=== PATIENT | male | born 1950 | race Caucasian/White ===

== ENCOUNTER 2019-11-13 11:54 | Emergency (ER) | payer MEDICARE, SELFPAY ==
[2019-11-13 12:09] VITALS: BP 146/81; PULSE 89; RESP 16; TEMP 36.7; O2SAT 97
--- NOTE | 2019-11-13 12:32 | ED.SKABFB ---
HPI - Skin/Abscess/Foreign Bdy General Chief complaint: Skin/Abscess/Foreign Body Stated complaint: infected lft index finger Time Seen by Provider: 11/13/19 12:32 Source: patient Mode of arrival: ambulatory Limitations: no limitations History of Present Illness HPI narrative: Eladio Morrissey is a 69 yo male with a PMH of gout, HTN, diabetes, high cholesterol, hypothyroid, depression, who comes to express care with an infected left finger after trying to do a cactus needle out of the finger; wearing plastic protective gloves; pain is 10/10, with swollen L index finger Related Data Home Medications Medication Instructions Recorded Confirmed hydrochlorothiazide 05/21/19 Allergies Allergy/AdvReac Type Severity Reaction Status Date / Time penicillin G Allergy Mild Unknown Verified 05/21/19 15:41 codeine Allergy Unknown Unknown Verified 05/21/19 15:41 peanut Allergy Unknown Unknown Verified 05/21/19 15:41 Penicillins Allergy Unknown Unknown Verified 05/21/19 15:41 Review of Systems Review of Systems: Narrative: CONSTITUTIONAL: Denies fever, chills, sweats. EYES: Denies visual changes, redness, discharge. ENT: Denies rhinorrhea, congestion, sore throat, otalgia. CARDIOVASCULAR: Denies chest pain, palpitations, edema. RESPIRATORY: Denies dyspnea, wheezing, cough GASTROINTESTINAL: Denies abdominal pain, nausea, vomiting, diarrhea. GENITOURINARY: Denies dysuria, hematuria, abnormal discharge SKIN: Denies rash or itching. Left index finger swelling and pain NEUROLOGIC: Denies numbness, or focal weakness. PSYCHIATRIC: Denies anxiety or depression. [facility] Past Medical History Medical History Carotid stenosis COPD (chronic obstructive pulmonary disease) HLD (hyperlipidemia) HTN (hypertension) PVD (peripheral vascular disease) Surgical History Surgical History H/O carotid endarterectomy History of revascularization procedure of lower extremity Family History Family History Father Hypertension Cerebrovascular accident Grandparent Family history of malignant neoplasm Diabetes mellitus Sibling Family history of diabetes mellitus in first degree relative Social History Social History Smoking status: Former smoker Smoking end date: 05/19/18 Alcohol intake: never Gender identity (if verbalized by the patient): Male Comments At time of signature, I agree with nursing past medical, surgical, social and family history. There is no relevant family history pertinent to the presenting complaint. Exam Narrative: Exam Narrative: GENERAL: This is a well-nourished, well-developed patient, in mild distress. HEAD: normocephalic, atraumatic. EYES: PERRL. Sclera clear/white. Vision is grossly intact. EARS: External ears normal, auditory canals clear and without drainage, TMs normal without perforation. Hearing grossly intact. NOSE: External nose normal without nasal discharge, nares without redness, no rhinorrhea. THROAT: Mucous membranes moist, posterior pharynx NECK: Neck supple, non-tender CARDIOVASCULAR: Regular rate and rhythm without murmurs, gallops, or rubs. RESPIRATORY: Clear to auscultation. Breath sounds equal bilaterally. No wheezes, rales, or rhonchi. GASTROINTESTINAL: Abdomen soft, non-tender, SKIN: warm, intact with no suspicious lesions or rash, good texture and turgor.L index finger: tense with abscess at distal joint- pale blue color surrounding 1 cm slit on lateral side of index finger with exquisite pain NEURO: awake, alert, and oriented to person, place and time. There were no obvious focal neurologic abnormalities. Steady gait EXTREMITIES: Normal range of motion. BACK: Nontender without deformity Course Course Emergency Course: Infected area on lateral side of index finger ope
--- NOTE | 2019-11-13 13:58 | PC.NURSE ---
Wound cleansed per [employer]. After inspection of wound she spoke with several doctors to obtain follow up for tomorrow. Patient will follow with his pmd. PMD was notified of wound by [employer].
== END 2019-11-13 13:50 | disposition home or self-care (01) ==
PROVIDERS: Emergency Provider Nurse Practitioner; PCP Family Medicine
DX: L03.012 Cellulitis of left finger (principal); L02.512 Cutaneous abscess of left hand; M10.9 Gout, unspecified; E11.9 Type 2 diabetes mellitus without complications; E03.9 Hypothyroidism, unspecified; E78.00 Pure hypercholesterolemia, unspecified; J44.9 Chronic obstructive pulmonary disease, unspecified; I10 Essential (primary) hypertension; I73.9 Peripheral vascular disease, unspecified; Z87.891 Personal history of nicotine dependence
CPT/HCPCS: 10160; 99213; G0463

== ENCOUNTER → 2022-12-11 09:05 | Outpatient (CLI) | payer MEDICARE, SELFPAY ==
--- NOTE | ~2022-12-11 | XR_ITS ---
EXAMINATION: XR abdomen/kub 1V INDICATION: Constipation, unspecified TECHNIQUE: Supine views of the abdomen were obtained on 2 radiographs. COMPARISON: None FINDINGS: The bowel gas pattern is normal. There are no dilated loops of bowel. The visualized lung b ases are clear. There is moderate osteoarthritis of the hips. Surgical clips project over the right h ip. IMPRESSION: 1. No radiographic correlate for the patient's symptoms. Reviewed, dictated and finalized at location []
== END ==
PROVIDERS: PCP Family Medicine; Visit Provider Nurse Practitioner Family
DX: K59.00 Constipation, unspecified (principal)
CPT/HCPCS: 74018

== ENCOUNTER 2023-02-02 14:38 | Emergency (ER) | payer MEDICARE, SELFPAY ==
--- NOTE | 2023-02-02 14:54 | ED.SKABFB ---
HPI - Skin/Abscess/Foreign Bdy General Chief complaint: Skin/Abscess/Foreign Body Stated complaint: insect bite Time Seen by Provider: 02/02/23 14:55 Source: patient, RN notes reviewed and old records reviewed Mode of arrival: ambulatory Limitations: no limitations History of Present Illness HPI narrative: 72-year-old male presents to the [facility] with complaints of an insect bite. States that he was bit by some type of insect on Sunday, 3 days ago. Has had increased redness, swelling to the left antecubital area. Erythema is not circumferential. Positive radial pulse. Capillary refill under 2 seconds. Patient reports a history of blood pressure issues, currently takes blood pressure medication. Did not take his blood pressure medication today, last dose was yesterday. Patient denies any headaches, blurry vision, change in vision. Denies any chest pain or shortness of breath. States that he does not take his blood pressure medication when he does not eat in the morning because it causes nausea Related Data Home Medications Medication Instructions Recorded Confirmed albuterol sulfate 90 mcg/actuation 1 inh inhalation QID 02/02/23 02/02/23 aerosol inhaler (ProAir HFA) aspirin 81 mg tablet,delayed 81 mg PO DAILY 02/02/23 02/02/23 release (Adult Low Dose Aspirin) carvedilol 12.5 mg tablet 12.5 mg PO DAILY 02/02/23 02/02/23 cetirizine 10 mg capsule 10 mg PO DAILY 02/02/23 02/02/23 diclofenac sodium 75 mg 75 mg PO BID PRN Pain 02/02/23 02/02/23 tablet,delayed release duloxetine 60 mg capsule,delayed 30 mg PO DAILY 02/02/23 02/02/23 release (Cymbalta) empagliflozin 12.5 mg-metformin 1 tablet PO BID 02/02/23 02/02/23 1,000 mg tablet (Synjardy) hydrochlorothiazide 25 mg tablet 25 mg PO DAILY 02/02/23 02/02/23 levothyroxine 75 mcg tablet 0.175 mcg PO DAILY 02/02/23 02/02/23 Allergies Allergy/AdvReac Type Severity Reaction Status Date / Time penicillin G Allergy Mild Unknown Verified 11/28/22 14:55 codeine Allergy Unknown Unknown Verified 11/28/22 14:55 Penicillins Allergy Unknown Unknown Verified 11/28/22 14:55 latex Allergy Unknown Verified 02/02/23 15:06 Review of Systems Review of Systems: All systems reviewed & are unremarkable except as noted in HPI and below Constitutional: Constitutional: Reports no additional constitutional complaints Eyes: Eyes: Reports no additional eye complaints ENT: Reports system reviewed and no additional complaints, except as documented Cardiovascular: Cardiovascular: Reports no additional cardiovascular complaints, Denies chest pain and Denies dyspnea Respiratory: Respiratory: Reports no additional respiratory complaints, Denies chest congestion, Denies cough and Denies dyspnea Gastrointestinal: Gastrointestinal: Reports no additional gastrointestinal complaints, Denies abdominal pain, Denies nausea and Denies vomiting Musculoskeletal: Musculoskeletal: Reports no additional musculoskeletal complaints Integumentary/Breasts: Skin/Breast: Reports as per HPI and Reports skin swelling Neurologic: Reports system reviewed and no additional complaints, except as documented Psychiatric: Psychiatric: Reports no additional psychiatric complaints Allergic/Immunologic: Allergic/Immunologic: Reports no additional allergic/immunologic complaints PMFSH Past Medical History Medical History BMI 28.0-28.9,adult BMI 29.0-29.9,adult BMI 30.0-30.9,adult Carotid stenosis COPD (chronic obstructive pulmonary disease) HLD (hyperlipidemia) HTN (hypertension) PVD (peripheral vascular disease) Surgical History Surgical History H/O carotid endarterectomy History of revascularization procedure of lower extremity Family History Family History Father Hypertension Cerebrovascular accident Grandparent Family histo
[2023-02-02 14:55] VITALS: BP 202/89; PULSE 82; RESP 18; TEMP 36.1; O2SAT 100
== END 2023-02-02 15:15 | disposition home or self-care (01) ==
PROVIDERS: Emergency Provider Nurse Practitioner; PCP Family Medicine
DX: S50.862A Insect bite (nonvenomous) of left forearm, initial encounter (principal); L03.114 Cellulitis of left upper limb; W57.XXXA Bitten or stung by nonvenomous insect and other nonvenomous arthropods, initial encounter; I10 Essential (primary) hypertension; F17.210 Nicotine dependence, cigarettes, uncomplicated; F12.90 Cannabis use, unspecified, uncomplicated; J44.9 Chronic obstructive pulmonary disease, unspecified; E78.5 Hyperlipidemia, unspecified; I73.9 Peripheral vascular disease, unspecified; I65.29 Occlusion and stenosis of unspecified carotid artery; Z79.82 Long term (current) use of aspirin
CPT/HCPCS: 99213; G0463

== ENCOUNTER 2024-03-13 10:27 | Outpatient (CLI) | payer MEDICARE, SELFPAY ==
--- NOTE | ~2024-03-13 | XR_ITS ---
XR chest 2V 03/13/2024 10:44 Indication: Chronic obstructive pulmonary disease. Procedure: 2 view chest Comparison: 11/26/2011 Findings: Heart size normal. There are chronic interstitial changes bilaterally, most likely intersti tial lung disease versus chronic interstitial edema no pleural effusion, pneumothorax. No acute osseo us abnormality. The lungs are hyperinflated which is consistent with, but not diagnostic of chronic o bstructive pulmonary disease. Impression: 1: Mild chronic interstitial lung disease. Reviewed, dictated and finalized at location B. Impression: 1: Mild chronic interstitial lung disease.
== END 2024-03-13 10:28 | disposition home or self-care (01) ==
LOC: ANHIMG 10:29
PROVIDERS: PCP Family Medicine; Visit Provider Family Medicine
DX: J44.9 Chronic obstructive pulmonary disease, unspecified (principal); J84.9 Interstitial pulmonary disease, unspecified
CPT/HCPCS: 71046

== ENCOUNTER 2024-05-11 15:37 | Inpatient (IN) | payer MEDICARE, SELFPAY ==
[2024-05-11] VITALS (21 sets, daily range): BP systolic 74–114; BP diastolic 40–57; PULSE 71–79; RESP 18–32; TEMP 36.6–36.8; O2SAT 87–97; BMI 27.2
--- NOTE | ~2024-05-11 | CT_ITS ---
EXAMINATION: CT chest abdomen pelvis wo con DATE: 05/11/2024 18:27 INDICATION: Sepsis TECHNIQUE: Computed tomography (CT) of the chest was performed without intravenous contrast. Automate d exposure control and iterative reconstruction technique were employed. Exam dose: 692.90 mGy-cm to donn exam DLP. COMPARISON: 05/11/2024 portable AP chest FINDINGS: There is bilateral thyromegaly. There is extensive consolidating infiltrate in the right upper and middle lobes and left lower lobe with air bronchograms, consistent with bilateral pneumonia. There is mild likely reactive mediastinal lymphadenopathy. 7 mm right lower lobe calcified granuloma (image 74). 4.7 mm right lower lobe peripheral pulmonary nodule (image 89). 4.8 mm right lower lobe nodule (image 92) Left upper lobe calcified pulmonary granuloma. Mild mediastinal lymph node prominence, likely reactive to the bilateral extensive pulmonary consolid ation. Calcified left hilar lymph nodes. The liver, gallbladder, bile ducts, spleen, pancreas, pancreatic duct are unremarkable. 29 x 31 mm left adrenal low attenuation mass; differential diagnosis includes left adrenal adenoma, m etastasis. No significant renal mass lesion is noted. Several left renal cysts, measuring up to approximately 12 mm. No ureteral calculus or hydroureteronephrosis. Moderately prominent prostate enlargement. Mild diffuse thickening of urinary bladder wall. Normal appendix. Several sigmoid colon diverticula are noted; no CT evidence of diverticulitis. No bowel obstruction o r intraperitoneal free air. There is extensive calcification of the celiac, superior mesenteric and particularly renal arteries i n addition to inferior mesenteric artery calcification. 2 fusiform infrarenal aneurysms of the abdominal aorta, measuring up to 4 cm infrarenal abdominal aor tic aneurysm. There is ectasia of the left common iliac artery. There is extensive calcification of t he iliac and femoral arteries. There is a catheter in the right common femoral vein, terminating in the right external iliac vein. No intraperitoneal or retroperitoneal or pelvic mass lesion or adenopathy or ascites is noted otherwi se. Mild bilateral fat-containing inguinal hernias. Small fat-containing umbilical hernia. Diffuse idiopathic skeletal hyperostosis of the thoracic spine. Hemangioma of L1 vertebral body. IMPRESSION: Extensive right upper lobe, middle lobe and left lower lobe consolidating pneumonia, wit h mild mediastinal reactive lymph node enlargement Occasional pulmonary nodules, likely related to pulmonary granulomatous disease 29 x 31 mm left adrenal low-attenuation mass, likely due to adrenal adenoma, less likely metastasis Normal appendix Minimal sigmoid diverticulosis; no evidence of diverticulitis Moderate prostatomegaly 2. Fusiform infrarenal abdominal aortic aneurysms, measuring up to 4 cm Central venous right common femoral catheter in right common femoral vein Reviewed, dictated and finalized at [facility] Reviewed, dictated and finalized at [facility]. R MECHANIC IMPRESSION: Extensive right upper lobe, middle lobe and left lower lobe consol idating pneumonia, with mild mediastinal reactive lymph node enlargement Occasional pulmonary nodules, likely related to pulmonary granulomatous disease 29 x 31 mm left adrenal low-attenuation mass, likely due to adrenal adenoma, le ss likely metastasis Normal appendix Minimal sigmoid diverticulosis; no evidence of diverticulitis Moderate prostatomegaly 2. Fusiform infrarenal abdominal aortic aneurysms, measuring up to 4 cm Central venous right common femoral catheter in right common femoral vein
--- NOTE | ~2024-05-11 | XR_ITS ---
XR chest 1V portable DATE: 05/11/2024 16:42 INDICATION: Shortness of breath TECHNIQUE: Portable upright AP chest on 05/11/2024 at 1641 hours COMPARISON: 03/13/2024 PA and lateral chest FINDINGS: There is prominent consolidating infiltrate in the right upper lobe and patchy consolidatin g infiltrate in the left lower lobe. Heart size is border line. Is aortic arch calcification. Heart size is likely within normal range considering medication associated with AP projection. No ple ural effusions or pneumothorax. Osteopenia. IMPRESSION: Right upper lobe and left lower lobe consolidating infiltrates, new since 03/13 2024 sugge sting bilateral pneumonia Reviewed, dictated and finalized at [facility] MERCHANT IMPRESSION: Right upper lobe and left lower lobe consolidating infiltrates, new since 03/13 2024 suggesting bilateral pneumonia
--- NOTE | ~2024-05-11 | US_ITS ---
EXAMINATION: US renal BI DATE: 05/12/2024 15:13 INDICATION: acute kidney injury TECHNIQUE: Multiple grayscale and Doppler ultrasound images of the kidneys were obtained. COMPARISON: CT cap 05/11/2024 FINDINGS: The right kidney measures 12.9 x 5.1 x 4.9 cm. The left kidney measures 12.2 x 6.0 x 5.7 cm. The kidn eys demonstrate normal parenchymal echogenicity. There is no hydronephrosis. The bladder is decompres sed by Garcia catheter. IMPRESSION: Unremarkable renal sonogram findings. Reviewed, dictated and finalized at location K. ISITION COST ESTIMATOR
--- NOTE | ~2024-05-11 | XR_ITS ---
EXAMINATION: XR chest 1V portable DATE: 05/14/2024 05:23 INDICATION: Pneumonia. TECHNIQUE: A single frontal view of the chest was obtained. COMPARISON: Chest single view 05/13/2024 FINDINGS: There are airspace opacities in all right lung zones with an upper lobe predominance. There are airspace opacities in left mid and lower lung zones. A calcified left lung nodule and calcified left hilar lymph nodes are consistent with old granulomatous disease. There is a small left pleural e ffusion. No pneumothorax. The heart size is normal. IMPRESSION: 1. Diffuse lung disease with slight improvement on the right and worsening on the left, consistent wi th pneumonia. 2. Small left pleural effusion. Reviewed, dictated and finalized at location A. RY DRYER OPERATOR IMPRESSION: 1. Diffuse lung disease with slight improvement on the right and worsening on t he left, consistent with pneumonia. 2. Small left pleural effusion.
--- NOTE | ~2024-05-11 | XR_ITS ---
EXAMINATION: XR chest 1V portable DATE: 05/15/2024 05:33 INDICATION: Bilateral pneumonia TECHNIQUE: frontal view of the chest was obtained. COMPARISON: Chest radiograph dated 05/14/2024 FINDINGS: Again seen are airspace opacity scattered throughout the right lung and left mid and lower lung zone, greatest but with interval improvement in the right and left lower lung zones. Additional airspace o pacities without significant change in the left mid and lower lung zones. Calcified nodule left midlu ng zone consistent with old granulomatous disease. No pneumothorax or right-sided pleural effusion. L ikely small left pleural effusion. The cardiomediastinal silhouette is normal. IMPRESSION: 1. There is been some interval improvement in bilateral airspace opacities greatest in the right mid and left lower lung zones consistent with pneumonia 2. Small left pleural effusion. Reviewed, dictated and finalized at location A. ANIZER RUBBER PLATE IMPRESSION: 1. There is been some interval improvement in bilateral airspace opacities grea test in the right mid and left lower lung zones consistent with pneumonia 2. Small left pleural effusion.
--- NOTE | ~2024-05-11 | XR_ITS ---
XR chest 1V portable DATE: 05/17/2024 13:30 INDICATION: Bilateral pneumonia TECHNIQUE: Portable upright AP view on 05/17/2024 at 1317 hours COMPARISON: 05/15/2024 portable AP chest at 0512 hours FINDINGS: There is right upper lobe atelectasis and consolidation. There is patchy left lower lobe infiltrate and consolidation. Heart size is likely within normal range. Is aortic arch calcification. Pulmonary vascularity appears within normal range. No significant pleural effusion or pneumothorax is identified. Diffuse osteopenia. IMPRESSION: Interval right upper lobe atelectasis and consolidation Persistent relatively stable left lower lobe infiltrate and patchy consolidation Reviewed, dictated and finalized at location A. ALT ROLLER PERSON IMPRESSION: Interval right upper lobe atelectasis and consolidation Persistent relatively stable left lower lobe infiltrate and patchy consolidatio n
--- NOTE | ~2024-05-11 | CT_ITS ---
CT brain wo con Ordering provider: Martín Phillips MD History: 74 years Male with . left sided weakness . Comparison: November 26, 2011 Technique: CT of the head without contrast. Radiation reduction technique utilized. The dose-length p roduct was 605.33 mGy-cm. FINDINGS: BRAIN PARENCHYMA AND CSF SPACES: hypodensity in the right frontal area most likely old infarct. Hypo density in the right paraventricular area also seen which is suggestive of an old infarct in the caud ate body. Small lacunar infarct is seen in the left caudate body. Lacunar infarct in the right basal ganglia is also noted Mild leukoaraiosis and diffuse cortical atrophy. Mild atheromatous disease. No midline shift, mass effect or hemorrhage. The brain parenchyma and CSF spaces are otherwise normal. VISUALIZED PARANASAL SINUSES: Right maxillary sinus disease. MASTOIDS: Well aerated. BONES: The bones appear intact. SOFT TISSUES: Visualized nasopharynx is normal. Superficial soft tissues are normal. IMPRESSION: No definite acute intracranial findings. 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 If still suspicious MRI is advised. Reviewed, dictated and finalized at location A. S DEPARTMENT MANAGER IMPRESSION: No definite acute intracranial findings. Old infarcts in the right frontal lobe, right paraventricular area and right ba tati ganglia. If still suspicious MRI is advised.
--- NOTE | ~2024-05-11 | XR_ITS ---
EXAMINATION: XR chest 1V portable DATE: 05/18/2024 09:02 INDICATION: Collapse of right lung upper lobe. TECHNIQUE: A single frontal view of the chest was obtained. COMPARISON: Chest view 05/17/2024, chest CT 05/11/2024 FINDINGS: There are airspace opacities in right upper lobe with volume loss. There are airspace opaci ties in left lower lobe. A calcified left lung nodule and calcified left hilar lymph nodes are consis tent with old granulomatous disease. No pleural effusion or pneumothorax. The heart size is normal. IMPRESSION: 1. Airspace opacities in right upper lobe and left lower lobe with worsening on the left, consistent with pneumonia. Reviewed, dictated and finalized at location A. ERTING TECHNICIAN
--- NOTE | ~2024-05-11 | XR_ITS ---
EXAMINATION: XR barium swallow modified DATE: 05/20/2024 14:20 INDICATION: Pneumonia. TECHNIQUE: The patient was given barium-containing material of multiple consistencies to swallow by t he speech pathologist while I performed fluoroscopy. Fluoroscopy exposure time was 0.8 minutes. The n umber of fluoroscopy images saved to the PACS was 1. Dose-area product was 0.656 Gy-cm^2. FINDINGS: The oral stage, pharyngeal stage, and cervical/esophageal stage of the swallow are normal. IMPRESSION: 1. Normal modified barium swallow. 2. Please refer to the speech therapy report for recommendations. Reviewed, dictated and finalized at location A. MER OPERATOR THREE KNIFE
--- NOTE | ~2024-05-11 | XR_ITS ---
EXAMINATION: XR chest 1V portable DATE: 05/22/2024 11:43 INDICATION: Leukocytosis. TECHNIQUE: A single frontal view of the chest was obtained on 2 radiographs. COMPARISON: Chest single view 05/18/2024 FINDINGS: There is a small left pleural effusion. There is been improved aeration of right upper lobe . There are airspace opacities in right mid and upper lung zones and left mid and lower lung zones. A calcified left lung nodule and calcified left hilar and mediastinal lymph nodes are consistent with old granulomatous disease. No pneumothorax. The heart size is normal. IMPRESSION: 1. Improved airspace opacities in right mid and upper lung zones and worsened airspace opacities in l eft mid and lower lung zones, consistent with pneumonia. 2. Small left pleural effusion. Reviewed, dictated and finalized at location A. GATION EXAMINER IMPRESSION: 1. Improved airspace opacities in right mid and upper lung zones and worsened a irspace opacities in left mid and lower lung zones, consistent with pneumonia. 2. Small left pleural effusion.
--- NOTE | ~2024-05-11 | XR_ITS ---
EXAMINATION: XR chest 1V portable DATE: 05/13/2024 05:28 INDICATION: Respiratory failure. TECHNIQUE: A single frontal view of the chest was obtained. COMPARISON: Chest single view 05/12/2024 FINDINGS: There are airspace opacities in right upper lobe and left lower lobe. No pleural effusion o r pneumothorax. The heart size is normal. IMPRESSION: 1. Airspace opacities in right upper lobe and left lower lobe with interval improvement, consistent w ith pneumonia. Reviewed, dictated and finalized at location A. OSOFT APPLICATION DEVELOPER IMPRESSION: 1. Airspace opacities in right upper lobe and left lower lobe with interval imp rovement, consistent with pneumonia.
--- NOTE | ~2024-05-11 | CT_ITS ---
EXAMINATION:CT diagnostic chest wo con DATE: 05/23/2024 08:56 INDICATION: Leukocytosis. TECHNIQUE: Computed tomography (CT) of the chest was performed without intravenous contrast. Automate d exposure control and iterative reconstruction technique were employed. The dose-length product (DLP ) was 230.61 mGy-cm. COMPARISON: Chest CT 05/11/2024 FINDINGS: There is mild emphysema. A calcified left lung nodule and calcified left hilar lymph nodes are consistent with old granulomatous disease. There are airspace opacities in right upper lobe and r ight middle lobe with improvement from 05/11/2024. There are 3 nodules in right lower lobe measuring up to 6 mm. There is mild atelectasis bilaterally. There are airspace opacities with volume loss in l eft lower lobe. There are small pleural effusions. The thyroid is enlarged. The heart size is normal. There are coronary artery calcifications. No pericardial effusion. Partially visualized is a fusifor m infrarenal aortic aneurysm measuring 4.0 cm. There is mild thoracic spondylosis. IMPRESSION: 1. Improved airspace opacities in right upper lobe and right middle lobe, consistent with pneumonia a nd atelectasis. 2. Left lower lobe airspace opacities with volume loss, consistent with atelectasis versus pneumonia. 3. Small pleural effusions. 4. Mild emphysema. 5. Pulmonary nodules measuring up to 6 mm, probably benign. Consider noncontrast low-dose chest CT in 6-12 months. 6. Partially visualized fusiform abdominal aortic aneurysm measuring 4.0 cm. Reviewed, dictated and finalized at location A. T CLERK IMPRESSION: 1. Improved airspace opacities in right upper lobe and right middle lobe, consi stent with pneumonia and atelectasis. 2. Left lower lobe airspace opacities with volume loss, consistent with atelect asis versus pneumonia. 3. Small pleural effusions. 4. Mild emphysema. 5. Pulmonary nodules measuring up to 6 mm, probably benign. Consider noncontras t low-dose chest CT in 6-12 months. 6. Partially visualized fusiform abdominal aortic aneurysm measuring 4.0 cm.
--- NOTE | ~2024-05-11 | US_ITS ---
EXAMINATION: US carotid duplex BI DATE: 05/12/2024 15:13 INDICATION: Syncope TECHNIQUE: Grayscale, color Doppler, and pulsed Doppler images of the cervical carotid arteries were obtained. The degree of vessel stenosis is placed in one of the following categories: normal, <50%, 5 0-69%, >=70% but less than near-occlusion, near-occlusion, or total occlusion. Note that percent sten osis relative to normal distal artery lumen diameter is indirectly measured from velocity measurement s as described by Julio, et al. Radiology 2003; [id number]. COMPARISON: None. FINDINGS: RIGHT: The right common carotid artery (CCA) peak systolic velocity (PSV) is 35 cm/s. There is prominent ath erosclerotic calcification along the right common carotid artery. The right internal carotid artery ( ICA) PSV is 53 cm/s. The right ICA end-diastolic velocity (EDV) is 9 cm/s. The right ICA/CCA PSV rati o is 2.0. Grayscale and color Doppler images yield an estimate of <50% diameter reduction from plaque in the ICA. The external carotid artery (ECA) PSV is 42 cm/s. There is antegrade flow in the right v ertebral artery. LEFT: The left CCA PSV is 161 cm/s. There is prominent atherosclerotic calcification along the left common carotid artery. The left ICA PSV is 138 cm/s. The left ICA EDV is 0 cm/s. The left ICA/CCA PSV ratio is 0.9. Grayscale and color Doppler images yield an estimate of <50% diameter reduction from plaque i n the ICA. The ECA PSV is cm/s. There is antegrade flow in the left vertebral artery. IMPRESSION: 1. <50% stenosis in the right internal carotid artery. 2. 50-69% stenosis in the left internal carotid artery. Reviewed, dictated and finalized at location A. ARY SERVER
--- NOTE | ~2024-05-11 | XR_ITS ---
EXAMINATION: XR chest 1V portable DATE: 05/12/2024 06:24 INDICATION: Respiratory failure. TECHNIQUE: A single frontal view of the chest was obtained. COMPARISON: Chest view 05/11/2024, chest CT 05/11/2024 FINDINGS: There are airspace opacities in right upper lobe, right middle lobe, and left lower lobe. A calcified left lung nodule and calcified left hilar lymph nodes are consistent with old granulomatou s disease. There is a small left pleural effusion. No pneumothorax. The heart size is normal. IMPRESSION: 1. Worsened multifocal lung disease, consistent with pneumonia. 2. Worsened small left pleural effusion. Reviewed, dictated and finalized at location A. OMER CONTACT 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
--- NOTE | 2024-05-11 15:40 | ECG_ITS ---
Test Date: 2024-05-11 15:53:21 Measurements Intervals [place] Rate: 78 P: 55 [place]: 168 QRS: 24 QRSD: 105 T: 49 QT: 386 QTc: 440 Interpretive Statements SINUS RHYTHM WITH MARKED SINUS ARRHYTHMIA NONSPECIFIC T-WAVE ABNORMALITY- INFERIOR LEADS BASELINE ARTIFACT- I, II, III, AVR, AVL, AVF, V2, V4-V6 BORDERLINE ECG No previous ECG available for comparison Electronically Signed On 05-11-2024 18:47:15 VACCINATOR by Hunter Shah D.O.
[2024-05-11] MEDS: methylPREDNISolone SOD SUCC 125 MG VIAL IV PUSH (16:01)
[2024-05-11 16:03] LABS: Alveolar/Arterial O2 Gradient 215.7 mmHg; Base Excess ABG -5.1 mEq/l (+/-2.0); Carboxyhemoglobin 0.8 % THb (0-2.0); Fractional Inspired Oxygen 44 %; HCO3 ABG 18.2 mEq/l (22.0-26.0); Methemoglobin ABG 0.3 %THb (0-1.5); Oxygen Content ABG 16.2 %vol (16.0-22.0); Oxygen Saturation ABG 93.3 % (95.0-100.0); Oxyhemoglobin 91.1 % THb (90.0-100.0); PCO2 ABG 29.2 mmHg (35.0-45.0); PO2 ABG 64.7 mmHg (80.0-100.0); PO2 FiO2 Ratio Arterial Blood 1.47 %; Reduced Hemoglobin 7.8 %THb (0-5.0); Total Hemoglobin 12.6 g/dL (12.0-18.0); pH ABG 7.413 (7.350-7.450)
[2024-05-11 16:04] LABS: Device NASAL CANNULA; Modified Allen's Test Pass; Site Drawn LEFT RADIAL
[2024-05-11 16:12] LABS: Hematocrit 35.5 % (42.0-52.0); Hemoglobin 12.2 g/dL (14.0-18.0); Mean Corpuscular HGB Conc 34.4 g/dl (32-36); Mean Corpuscular Hemoglobin 29.5 pg (26-34); Mean Corpuscular Volume 85.7 fl (80-100); Platelet Count Result 231 k/mm3 (150-375); Red Blood Count 4.14 M/mm3 (4.6-6.20); Red Cell Distribution Width 13.7 % (11.5-14.5); White Blood Count 21.8 K/mm3 (4.5-10.0)
[2024-05-11] MEDS: SODIUM CHLORIDE 0.9% IV 500 ML 999 ML IV CONT (16:15)
[2024-05-11 16:23] LABS: INR 1.1; Prothrombin Time 14.6 Seconds (11.1-14.7)
[2024-05-11 16:25] LABS: Band Neutrophils Percent 17 % (0-6); Lactic Acid Reflex 5.5 mmol/L (0.7-2.0); Lymphocytes Absolute Manual 0.65 K/mm3 (1.1-4.5); Lymphocytes Percent Manual 3 % (18-44); Metamyelocytes Percent 2 %; Monocytes Absolute Manual 1.09 K/mm3 (0.1-0.90); Monocytes Percent Manual 5 % (3-9); Neutrophils Absolute Manual 19.62 K/mm3 (1.3-6.7); Neutrophils Percent Manual 73 % (46-73); Total Cells Counted 100
[2024-05-11 16:26] LABS: Albumin Level 3.6 g/dL (3.5-5.1); Alkaline Phosphatase 90 U/L (38-126); Anion Gap 14 mmol/L (4-12); Aspartate Amino Transferase 46 U/L (17-59); Bilirubin,Total 1.1 mg/dL (0.2-1.3); Blood Urea Nitrogen 56 mg/dL (9-20); Calcium 8.6 mg/dL (8.4-10.2); Carbon Dioxide 22 mmol/L (22-30); Chloride 95 mmol/L (98-107); Estimated CRCL calculation 13 ml/min; Estimated Glomerular Filt Rate 13; Glucose 163 mg/dL (65-110); Ovalocytes 1+; Platelet Estimate Adequate (Adequate); Potassium 3.7 mmol/L (3.4-5.0); Schistocytes None Seen; Sodium 131 mmol/L (137-145)
[2024-05-11 16:30] LABS: Alanine Aminotransferase 21 U/L (6-50)
[2024-05-11 16:33] LABS: D Dimer 3.93 ug/mL (<0.48)
[2024-05-11 16:36] LABS: NT Pro B Type Natriuretic Pept 14000 pg/mL (19.9-100); Troponin I 0.102 ng/mL (0.000-0.034)
--- NOTE | 2024-05-11 18:15 | P.HP_ITS ---
H&P: HPI History of Present Illness Date/Time: 05/11/24 18:15 Chief Complaint: Weakness and syncope. Narrative: This is a pleasant 74-year-old male smoker with chronic obstructive pulmonary disease, hypertension, hyperlipidemia, type 2 diabetes mellitus, and vascular disease who presented to the emergency department via private vehicle accompanied by his with weakness and syncope. The patient provides the following history. He has not been feeling well for over a week with chest congestion, cough productive of clear phlegm, and sinus congestion. Over the last several days he has been feeling increasingly worse with new symptoms including headache, sinus congestion, nausea, vomiting, and diarrhea. His appetite has been poor with a significant decrease in oral intake. Today he was feeling especially weak and reports he lightheadedness and dizziness upon standing and bending over. In fact he reports having 4 syncopal episodes today, 1 of which when he was going into his 's room to check on her as she has had similar symptoms. He felt extremely lightheaded, dizzy, and knew that he was going to pass out and crumpled down to the floor. He cannot tell me about the other reported 3 syncopal episodes as he does not seem to remember them. He denies injury and does not think he had any head trauma. He also denies fever, pleuritic pain, exertional chest pain, palpitations, hematemesis, melena, hematochezia, lower extremity edema, calf pain, and dysuria. In the ED: Vital signs on arrival include a temperature of 98?, blood pressure 74/56, pulse 79, respiratory rate 29, SpO2 87%. Labs were significant for WBC count 21.8 with 17% bands, hemoglobin 12.2, platelet 231, D-dimer 3.93, sodium 131, chloride 95, carbon dioxide 22, anion gap 14, BUN 56, creatinine 4.40, lactic acid 5.5, glucose 163, proBNP 16341, troponin 0.102. He tested negative for influenza, RSV, and COVID. CT of the chest, abdomen, and pelvis showed extensive right upper lobe, middle lobe, and left lower lobe consolidating pneumonia. He received 1500 mL normal saline bolus with caution to avoid over- hydration given elevated proBNP and renal failure. Blood pressures did not improve significantly and a femoral central line was placed and he is currently norepinephrine. He was given methylprednisolone 125 mg, cefepime 1 g, doxycycline 100 mg, and vancomycin 1250 mg. He is being admitted to the ICU in this setting for further treatment. Review of Systems Review of Systems: 12 systems were reviewed and are negativ e except for as per HPI. [facility] Past Medical History Medical History (Updated 05/11/24 @ 22:02 by Babs Arriaza PA-C) Arthritis Carotid stenosis Chronic obstructive pulmonary disease Gout Hyperlipidemia Hypertension Hypothyroidism Obstructive sleep apnea Peripheral vascular disease Tobacco dependence Type 2 diabetes mellitus Surgical History Surgical History (Updated 05/11/24 @ 21:34 by Babs Arriaza PA-C) History of cardiac catheterization History of carotid endarterectomy History of cholecystectomy History of revascularization procedure of lower extremity Family History Family History Father Hypertension Cerebrovascular accident Grandparent Family history of malignant neoplasm Diabetes mellitus Sibling Family history of diabetes mellitus in first degree relative Diabetes mellitus Mother Hyperlipidemia Social History Social History (Updated 05/11/24 @ 21:35 by Babs Arriaza PA-C) Social History: Surrogate medical decision maker: Brooks Morrissey, son ([phone]) and Kira Morrissey, spouse ([phone]). Code status: Full code. Smoking packs per day: 1 Smoking cigarettes per day: 20.0 Years smoked: 30 Smoking pack-years: 30.00 Smoking status: Current every day smoker Tobacco type: cigarettes Second hand tobacco smoke exposure: Yes Alcohol intake: never Substance use: current Substance use type: marijuana Other substance usage details: smoking and edibles Do You Feel Safe in your Home?: Yes Lack of Transportation: No Lack of Food: Never True Current Housing: I Have Housing Concerned About Future Housing: No Difficulty Paying Gas/Electric Bills: No Difficulty Paying for Meds: No Currently Unemployed: No Education: High School Diploma/GED Difficulty w/ Childcare or Family Care: No Living arrangements: with family Occupation/Education: retired Spiritual care concerns: No Meds Home Medications and Allergies Home Medications Medication Instructions Recorded Confirmed Type albuterol sulfate 2.5 mg/3 mL 2.5 mg (3 mL) inhalation Q4-6H PRN 11/11/22 05/11/24 Rx (0.083 %) solution for nebulization shortness of breath or wheezing #75 mL albuterol sulfate 90 mcg/actuation 1 inh inhalation QID PRN 02/02/23 05/11/24 History aerosol inhaler (ProAir HFA) SOB/Wheezing aspirin 81 mg tablet,delayed 81 mg PO DAILY 02/02/23 05/11/24 History release (Adult Low Dose Aspirin) duloxetine 60 mg capsule,delayed 60 mg PO DAILY #90 caps 01/03/24 05/11/24 Rx release empagliflozin 12.5 mg-metformin 1 tablet PO BID #180 tabs 01/03/24 05/11/24 Rx 1,000 mg tablet (Synjardy) hydrochlorothiazide 25 mg tablet 25 mg PO DAILY #90 tabs 01/03/24 05/11/24 Rx levothyroxine 75 mcg tablet 75 mcg PO DAILY #90 tabs 01/03/24 05/11/24 Rx rosuvastatin 40 mg tablet 40 mg PO DAILY #90 tabs 01/03/24 05/11/24 Rx budesonide 160 mcg-glycopyr 9 2 inh inhalation BID #10.7 grams 05/05/24 05/11/24 Rx mcg-formot 4.8 mcg/actuation HFA inhaler (Breztri Aerosphere) sildenafil 100 mg tablet 100 mg PO DAILY PRN sexual 05/05/24 05/11/24 Rx activity #30 tabs amlodipine 10 mg tablet 10 mg PO DAILY 05/11/24 05/11/24 History carvedilol 12.5 mg tablet 12.5 mg PO DAILY 05/11/24 05/11/24 History clopidogrel 75 mg tablet 75 mg PO DAILY 05/11/24 05/11/24 History Allergies Allergy/AdvReac Type Severity Reaction Status Date / Time penicillin G Allergy Mild Unknown Verified 05/11/24 15:38 codeine Allergy Unknown Unknown Verified 05/11/24 15:38 Penicillins Allergy Unknown Unknown Verified 05/11/24 15:38 latex Allergy Unknown Verified 05/11/24 15:38 Vital Signs Vital Signs - 24 hr 05/11/24 15:46 05/11/24 16:04 05/11/24 16:23 Temperature 98.0 F Pulse Rate 79 76 74 Respiratory Rate 29 H 32 H 26 H Blood Pressure 74/56 L 93/45 L 89/52 L Pulse Oximetry 87 L 95 96 Oxygen Delivery Nasal Cannula Nasal Cannula Oxygen Flow Rate 6.0 6 Fraction of Inspired Oxygen 05/11/24 16:42 05/11/24 16:48 05/11/24 17:05 Temperature Pulse Rate 74 79 74 Respiratory Rate 29 H 28 H 29 H Blood Pressure 92/47 L 87/55 L 89/47 L Pulse Oximetry 93 91 94 Oxygen Delivery Oxygen Flow Rate Fraction of Inspired Oxygen 05/11/24 17:24 05/11/24 18:01 05/11/24 18:05 Temperature 97.9 F Pulse Rate 75 76 Respiratory Rate 28 H 18 Blood Pressure 92/45 L 85/48 L 82/51 L Pulse Oximetry 93 94 Oxygen Delivery Oxygen Flow Rate Fraction of Inspired Oxygen 05/11/24 17:15 05/11/24 17:20 Temperature Pulse Rate Respiratory Rate Blood Pressure Pulse Oximetry 97 94 Oxygen Delivery Non-Rebreather Mask High Flow Therapy with Na Oxygen Flow Rate 15 35 Fraction of Inspired Oxygen 75 Exam Narrative: General: Acutely ill-appearing male in the semi-Arriaga position in bed. Weight: 78.9 kg. BMI: 27.2. HEENT: PERRL, EOMI. Sclera anicteric. Tacky mucous membranes. Neck: Supple. No JVD. Respiratory: Mildly tachypneic with conversational dyspnea, speaking in 3 to 4 word sentences. Lung sounds are coarse throughout with bronchial breath sounds in the right mid and upper lung pena. Occasional expiratory wheezing. Cardiovascular: Regular rate and rhythm with occasional ectopy. Gastrointestinal: Abdomen is soft, nontender, and nondistended with positive bowel sounds. Skin: Warm and dry. Generalized pallor. Capillary refill proximally 3 to 4 seconds. Hands are warm. Feet are a bit cool. Extremities: No cyanosis, clubbing, or edema. Radial pulses palpable. Posterior tibialis pulses palpable. Pedal pulses diminished. Neurological: Alert and oriented. Cranial nerves 2-12 are grossly intact. Speech is clear. No facial asymmetry. No gross focal deficits to casual conversation. Psychiatric: Pleasant and cooperative with appropriate mood and affect. H&P: Results Labs Labs: Short CBC 05/11/24 Range/Units 15:55 WBC 21.8 H (4.5-10.0) K/mm3 Hgb 12.2 L (14.0-18.0) g/dL Hct 35.5 L (42.0-52.0) % Plt Count 231 (150-375) k/mm3 BMP 05/11/24 05/11/24 05/11/24 15:55 15:55 15:55 Sodium Cancelled 131 L Potassium Cancelled 3.7 Chloride Cancelled Carbon Dioxide BUN Creatinine Glucose Calcium 05/11/24 05/11/24 05/11/24 15:55 15:55 15:55 Sodium Potassium Chloride 95 L Carbon Dioxide Cancelled 22 BUN Cancelled 56 H D Creatinine Cancelled Glucose Calcium 05/11/24 05/11/24 05/11/24 15:55 15:55 15:55 Sodium Potassium Chloride Carbon Dioxide BUN Creatinine 4.40 H Glucose Cancelled 163 H Calcium Cancelled 8.6 Cardiac Enzymes 05/11/24 Range/Units 15:55 Troponin I 0.102 H* (0.000-0.034) ng/mL Liver Function 05/11/24 05/11/24 05/11/24 Range/Units 15:55 15:55 15:55 Total Bilirubin Cancelled 1.1 AST Cancelled 46 ALT Cancelled Alkaline Phosphatase Albumin 05/11/24 05/11/24 05/11/24 Range/Units 15:55 15:55 15:55 Total Bilirubin AST ALT 21 Alkaline Phosphatase Cancelled 90 Albumin Cancelled 3.6 Imaging Chest X-Ray 05/11/24 16:49 IMPRESSION: Right upper lobe and left lower lobe consolidating infiltrates, new since 03/13 2024 suggesting bilateral pneumonia. ABG ABG results: 05/11/24 15:55 Puncture Site Left radial ABG pH 7.413 ABG pCO2 29.2 L ABG pO2 64.7 L ABG PO2/FiO2 Ratio 1.47 ABG HCO3 18.2 L ABG O2 Saturation 93.3 L ABG O2 Content 16.2 ABG Base Excess -5.1 A-a Gradient 215.7 Oxyhemoglobin 91.1 Carboxyhemoglobin 0.8 Reduced Hemoglobin 7.8 H Total Hemoglobin 12.6 O2 Delivery Device Nasal cannula O2 Liters/Min 6.0 FiO2 44 Assessment and Plan Assessment and plan (1) Septic shock: Code(s): A41.9 - Sepsis, unspecified organism; R65.21 - Severe sepsis with septic shock Status: Acute Assessment and Plan: Patient presents with refractory hypotension, leukocytosis with bandemia, acute kidney injury, and lactic acidosis. SOFA at least 9. Source of infection is multifocal community-acquired pneumonia. * Interventions thus far: * 1500 mL bolus given in the ED on arrival. * Central line inserted 05/11/2024. * Medications: * Norepinephrine to maintain MAP > 70 and SBP > 100 for adequate end-organ perfusion. * Broad-spectrum antibiotics including cefepime, doxycycline, vancomycin. * Consider stress dose steroids. * Labs/micro: * Blood and sputum cultures pending. (2) Multifocal pneumonia: Code(s): J18.9 - Pneumonia, unspecified organism Status: Acute Assessment and Plan: Chest CT on 05/11/2024 shows extensive right upper lobe, middle lobe, and left lower lobe consolidating pneumonia. * Medications: * Cefepime, doxycycline, and vancomycin initiated on 05/11/2024. * Received methylprednisolone 125 mg IV x1 in the ED, consider steroids. * Scheduled bronchodilators q. 6 hours. * Labs/micro: * Influenza, RSV, and COVID were negative. * MRSA nasal screen is pending. * Sputum culture ordered. * Legionella and pneumococcal antigens pending. (3) Acute kidney injury: Code(s): N17.9 - Acute kidney failure, unspecified Status: Acute Assessment and Plan: Likely due to a combination of factors including probable ATN from sepsis, hypovolemia from dehydration, and hypoperfusion from hypotension. He denies NSAID use. No concerns for urinary retention. * Interventions thus far: * Received 1500 mL normal saline bolus in the ED on arrival. * Garcia catheter inserted for strict I/O. * Medications: * Continue normal saline at 100 mL/hour. * Renally dose all medications. * Avoid nephrotoxic agents. * Pending labs/imaging: * Renal ultrasound ordered for a.m.. * Urine electrolytes pending. (4) Non-ST elevation myocardial infarction (NSTEMI): Code(s): I21.4 - Non-ST elevation (NSTEMI) myocardial infarction Status: Acute Assessment and Plan: He is having no chest pain and this is likely a type 2 myocardial infarction related to septic shock. * Interventions thus far: * Initial EKG showed sinus rhythm with sinus arrhythmia and nonspecific T changes. * Troponin trend: 0.102 --> 0.080. * Medications: * Hold on anticoagulation at this time. * Continue aspirin, clopidogrel, and rosuvastatin which are home medications. * Pending workup: * Echocardiogram ordered. * Cardiology consulted. (5) Syncope: Code(s): R55 - Syncope and collapse Status: Acute Assessment and Plan: Patient reports having 4 syncopal episodes today, I suspect related to hypotension. * Interventions thus far: * 1500 mL normal saline bolus given in the ED. * Medications: * Antihypertensives on hold. * Pending workup: * EKG shows sinus rhythm with sinus arrhythmia. * Echocardiogram and carotid Doppler ultrasounds pending. (6) Chronic obstructive pulmonary disease: Code(s): J44.9 - Chronic obstructive pulmonary disease, unspecified Status: Acute Assessment and Plan: He is not always compliant with inhalers at home and continues to smoke. No significant wheezing at this time. * Received Solu-Medrol 125 mg in the ED on arrival. * Continue scheduled bronchodilators and maintenance inhalers. (7) Hypothyroidism: Code(s): E03.9 - Hypothyroidism, unspecified Status: Acute Assessment and Plan: Continue levothyroxine and check TSH. (8) Type 2 diabetes mellitus: Code(s): E11.9 - Type 2 diabetes mellitus without complications Status: Acute Assessment and Plan: Patient reports that his diabetes is pretty well controlled. * Interventions: * Initiate sliding scale insulin, Accu-Cheks, and hypoglycemic protocol. * Medications: * Sliding scale insulin. * Hold empagliflozin/metformin for now. * Pending labs: * Follow-up hemoglobin A1c. (9) Peripheral vascular disease: Code(s): I73.9 - Peripheral vascular disease, unspecified Status: Acute Assessment and Plan: Patient has a history of carotid endarterectomy and lower extremity angioplasty. No acute issues. * Continue dual antiplatelet therapy and statin. (10) Tobacco dependence: Code(s): F17.200 - Nicotine dependence, unspecified, uncomplicated Status: Acute Assessment and Plan: Patient continues to smoke a pack of cigarettes a day. * Smoking cessation is imperative and was discussed. * Nicotine patch available if needed. Quality VTE Prophylaxis VTE prophylaxis: mechanical ordered and pharmacologic ordered Hospitalist MIPS Advance Care Plan I have confirmed that the patient's Advanced Care Plan is present, code status is documented, or surrogate decision maker is listed in patient medical record.: Yes Medication Reconciliation I have utilized all available resources to obtain, update and review the patients current medications (includes all prescriptions, OTC, herbals, cannabis, and nutritional supplements).: Yes Critical Care Time Critical Care Time: Yes Total Critical Care Time: 75 Attestation: Due to a high probability of clinically significant, life threatening deterioration, the patient required my highest level of preparedness to intervene emergently and I personally spent this critical care time directly and personally managing the patient. This critical care time included obtaining a history; examining the patient; pulse oximetry; ordering and review of studies; arranging urgent treatment with development of a management plan; evaluation of patient's response to treatment; frequent reassessment; and discussions with other providers. It was exclusive of separately billable procedures and treating other patients and teaching time. Please see Assessment and Plan section and the rest of the note for further information on patient assessment and treatment.
--- NOTE | 2024-05-11 18:18 | ED.GENADULT ---
HPI - General Adult General Chief complaint: Weakness Stated complaint: weakness, respiratory stuff , syncope Time Seen by Provider: 05/11/24 15:57 Source: patient and family Mode of arrival: ambulatory Limitations: no limitations History of Present Illness HPI narrative: 74-year-old with a history of COPD was brought in by family with the complaints of shortness of breath, not feeling well for past few days my he states since this afternoon his shortness of breath got worse. He uses inhalers which did not help him. No history of fever has occasional nonproductive cough. No history of nausea vomiting. Denies any chest pain. Onset (ago): day(s) (1) Severity: moderate Related Data Home Medications Medication Instructions Recorded Confirmed albuterol sulfate 90 mcg/actuation 1 inh inhalation QID 02/02/23 05/05/24 aerosol inhaler (ProAir HFA) aspirin 81 mg tablet,delayed 81 mg PO DAILY 02/02/23 05/05/24 release (Adult Low Dose Aspirin) Allergies Allergy/AdvReac Type Severity Reaction Status Date / Time penicillin G Allergy Mild Unknown Verified 05/11/24 15:38 codeine Allergy Unknown Unknown Verified 05/11/24 15:38 Penicillins Allergy Unknown Unknown Verified 05/11/24 15:38 latex Allergy Unknown Verified 05/11/24 15:38 Review of Systems Review of Systems: All systems reviewed & are unremarkable except as noted in HPI and below Constitutional: Constitutional: Reports no additional constitutional complaints Eyes: Eyes: Reports no additional eye complaints ENT: Reports system reviewed and no additional complaints, except as documented Cardiovascular: Cardiovascular: Reports no additional cardiovascular complaints Respiratory: Respiratory: Reports as per HPI Gastrointestinal: Gastrointestinal: Reports no additional gastrointestinal complaints Musculoskeletal: Musculoskeletal: Reports no additional musculoskeletal complaints Integumentary/Breasts: Skin/Breast: Reports system reviewed and no additional complaints, except as docu Neurologic: Reports system reviewed and no additional complaints, except as documented PMFSH Past Medical History Medical History Carotid stenosis COPD (chronic obstructive pulmonary disease) Diminished pulses in lower extremity HLD (hyperlipidemia) HTN (hypertension) PVD (peripheral vascular disease) Surgical History Surgical History H/O carotid endarterectomy History of revascularization procedure of lower extremity Family History Family History Father Hypertension Cerebrovascular accident Grandparent Family history of malignant neoplasm Diabetes mellitus Sibling Family history of diabetes mellitus in first degree relative Diabetes mellitus Mother Hyperlipidemia Social History Social History Smoking packs per day: 1 Smoking cigarettes per day: 20.0 Years smoked: 50 Smoking pack-years: 50.00 Smoking status: Current every day smoker Tobacco type: cigarettes Second hand tobacco smoke exposure: Yes Alcohol intake: never Substance use: current Substance use type: marijuana Other substance usage details: smoking and edibles Living arrangements: with family Occupation/Education: retired 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 Hard of hearing HEAD: Normocephalic, atraumatic. EYES: PERRLA and EOMI. ENT: Nares clear, Mucous membranes moist. NECK: Supple. CHEST: . No respiratory distress. course HEART: Regular rate and rhythm. No murmur heard. Normal peripheral pulses. ABDOMEN: Soft, nontender, nondistended, normal active bowel sounds. EXTREMITIES: Normal range of motion. No edema. SKIN: Warm, dry, no rash. NEURO: No focal deficits. Alert and oriented x3. PSYCH: Normal mood and affect. Course Course Emergency Course: Patient remained hypotensive after radiation of normal saline bolus. did inform patient and the family about his lab work, x-ray findings. Obtained consent for central line placement for IV pressors . I discussed with hospitalist and university professor. Vital Signs Vital signs: Vital Signs Temperature 36.7 C 05/11/24 15:46 Pulse Rate 79 05/11/24 15:46 Respiratory Rate 29 H 05/11/24 15:46 Blood Pressure 74/56 L 05/11/24 15:46 Pulse Oximetry 87 L 05/11/24 15:46 Oxygen Delivery Nasal Cannula 05/11/24 15:46 Oxygen Flow Rate 6.0 05/11/24 15:46 Temperature 36.8 C 05/11/24 18:50 Pulse Rate 73 05/11/24 18:50 Respiratory Rate 26 H 05/11/24 18:50 Blood Pressure 84/52 L 05/11/24 18:50 Pulse Oximetry 96 05/11/24 18:50 Oxygen Delivery High Flow Therapy with Nasal Cannula 05/11/24 17:20 Oxygen Flow Rate 35 05/11/24 17:20 Fraction of Inspired Oxygen 75 05/11/24 17:20 Procedures Central Line Placement Right Femoral: Central Line Date: 05/11/24 Central Line Time: 19:09 Discussed w/ the patient/family/POA,the placement of a central venous catheter, including its clinical necessity/indication & associated potential risks, benifits and alternatives.: Yes The patient/family/POA understand(s) and acknowledge(s) the need to proceed with central venous catheter insertion as an important element of the patient's clinical management.: Yes Performed Emergently - Given emergent patient condition, temporal constraints may have precluded informed consent.: Yes Time Out Performed: Yes Patient Placed on Monitor/Pulse Ox: Yes Max. Sterile Barrier Technique: Caps, large sterile sheet and hand hygiene Central Line Prep: 2% chlorhexidine scrub Technique: US-Guided Local Anesthetic: lidocaine 1% Amount of anesthesia used (mL): 5 Ultrasound Used for Placement: Yes Central Line Lumen Inserted: triple Post Procedure: sutured in place, good blood return and sterile dressing applied Patient Tolerated Procedure: well Complications: none Medical Decision Making MDM Narrative Medical decision making narrative: 80-year-old with history of COPD presents to the ER with a complaint of shortness of breath and weakness on arrival his SpO2 was 88 or 86% and his hypotensive , his did order a septic workup on start IV fluids. Differential Diagnosis Differential Diagnosis: Pneumonia, sepsis, PE, CHF Medical Records Medical records reviewed: Yes I reviewed the external patient's medical records. Vital Signs Vital Signs: Vital Signs Temperature 36.7 C 05/11/24 15:46 Pulse Rate 79 05/11/24 15:46 Respiratory Rate 29 H 05/11/24 15:46 Blood Pressure 74/56 L 05/11/24 15:46 Pulse Oximetry 87 L 05/11/24 15:46 Oxygen Delivery Nasal Cannula 05/11/24 15:46 Oxygen Flow Rate 6.0 05/11/24 15:46 Temperature 36.8 C 05/11/24 18:50 Pulse Rate 73 05/11/24 18:50 Respiratory Rate 26 H 05/11/24 18:50 Blood Pressure 84/52 L 05/11/24 18:50 Pulse Oximetry 96 05/11/24 18:50 Oxygen Delivery High Flow Therapy with Nasal Cannula 05/11/24 17:20 Oxygen Flow Rate 35 05/11/24 17:20 Fraction of Inspired Oxygen 75 05/11/24 17:20 Lab Data 05/11/24 15:55 05/11/24 15:55 Labs: Lab Results 05/11/24 05/11/24 05/11/24 Range/Units 15:55 15:55 15:55 WBC 21.8 H (4.5-10.0) K/mm3 RBC 4.14 L (4.6-6.20) M/mm3 Hgb 12.2 L (14.0-18.0) g/dL Hct 35.5 L (42.0-52.0) % MCV 85.7 (80-100) fl MCH 29.5 (26-34) pg MCHC 34.4 (32-36) g/dl RDW 13.7 (11.5-14.5) % Plt Count 231 (150-375) k/mm3 MPV 10.0 (7.4-10.4) fl Immature Gran % (Auto) Not Reportable Neut % (Auto) Not Reportable Lymph % (Auto) Not Reportable [place] % (Auto) Not Reportable Eos % (Auto) Not Reportable Baso % (Auto) Not Reportable Lymph # (Auto) Not Reportable [place] # (Auto) Not Reportable Eos # (Auto) Not Reportable Baso # (Auto) Not Reportable Abs Immat Gran (auto) Not Reportable Absolute Neuts (auto) Not Reportable Absolute Nucleated RBC Not Reportable Total Counted 100 Neutrophils % (Manual) 73 (46-73) % Band Neutrophils % 17 H (0-6) % Lymphocytes % (Manual) 3 L (18-44) % Monocytes % (Manual) 5 (3-9) % Metamyelocytes % 2 % Nucleated RBC % Not Reportable Abs Neuts (Manual) 19.62 H (1.3-6.7) K/mm3 Abs Lymphs (Manual) 0.65 L (1.1-4.5) K/mm3 Abs Monocytes (Manual) 1.09 H (0.1-0.90) K/mm3 Platelet Estimate Adequate (Adequate) Ovalocytes 1+ Schistocytes None seen PT 14.6 (11.1-14.7) Seconds INR 1.1 D-Dimer 3.93 H (<0.48) ug/mL Methemoglobin 0.3 (0-1.5) %THb Sodium Cancelled 131 L Potassium Cancelled 3.7 Chloride Cancelled Carbon Dioxide Anion Gap BUN Creatinine Estim Creat Clear Calc Estimated GFR Glucose Lactic Acid (0.7-2.0) mmol/L Calcium Total Bilirubin AST ALT Alkaline Phosphatase Troponin I (0.000-0.034) ng/mL NT-Pro-B Natriuret Pep (19.9-100) pg/mL Total Protein Albumin Nasal MRSA (PCR) Influenza A (RT-PCR) Influenza B (RT-PCR) RSV (RT-PCR) SARS-CoV-2 RNA (RT-PCR) 05/11/24 05/11/24 05/11/24 Range/Units 15:55 15:55 15:55 WBC (4.5-10.0) K/mm3 RBC (4.6-6.20) M/mm3 Hgb (14.0-18.0) g/dL Hct (42.0-52.0) % MCV (80-100) fl MCH (26-34) pg MCHC (32-36) g/dl RDW (11.5-14.5) % Plt Count (150-375) k/mm3 MPV (7.4-10.4) fl Immature Gran % (Auto) Neut % (Auto) Lymph % (Auto) [place] % (Auto) Eos % (Auto) Baso % (Auto) Lymph # (Auto) [place] # (Auto) Eos # (Auto) Baso # (Auto) Abs Immat Gran (auto) Absolute Neuts (auto) Absolute Nucleated RBC Total Counted Neutrophils % (Manual) (46-73) % Band Neutrophils % (0-6) % Lymphocytes % (Manual) (18-44) % Monocytes % (Manual) (3-9) % Metamyelocytes % % Nucleated RBC % Abs Neuts (Manual) (1.3-6.7) K/mm3 Abs Lymphs (Manual) (1.1-4.5) K/mm3 Abs Monocytes (Manual) (0.1-0.90) K/mm3 Platelet Estimate (Adequate) Ovalocytes Schistocytes PT (11.1-14.7) Seconds INR D-Dimer (<0.48) ug/mL Methemoglobin (0-1.5) %THb Sodium Potassium Chloride 95 L Carbon Dioxide Cancelled 22 Anion Gap Cancelled 14 H BUN Cancelled Creatinine Estim Creat Clear Calc Estimated GFR Glucose Lactic Acid (0.7-2.0) mmol/L Calcium Total Bilirubin AST ALT Alkaline Phosphatase Troponin I (0.000-0.034) ng/mL NT-Pro-B Natriuret Pep (19.9-100) pg/mL Total Protein Albumin Nasal MRSA (PCR) Influenza A (RT-PCR) Influenza B (RT-PCR) RSV (RT-PCR) SARS-CoV-2 RNA (RT-PCR) 05/11/24 05/11/24 05/11/24 Range/Units 15:55 15:55 15:55 WBC (4.5-10.0) K/mm3 RBC (4.6-6.20) M/mm3 Hgb (14.0-18.0) g/dL Hct (42.0-52.0) % MCV (80-100) fl MCH (26-34) pg MCHC (32-36) g/dl RDW (11.5-14.5) % Plt Count (150-375) k/mm3 MPV (7.4-10.4) fl Immature Gran % (Auto) Neut % (Auto) Lymph % (Auto) [place] % (Auto) Eos % (Auto) Baso % (Auto) Lymph # (Auto) [place] # (Auto) Eos # (Auto) Baso # (Auto) Abs Immat Gran (auto) Absolute Neuts (auto) Absolute Nucleated RBC Total Counted Neutrophils % (Manual) (46-73) % Band Neutrophils % (0-6) % Lymphocytes % (Manual) (18-44) % Monocytes % (Manual) (3-9) % Metamyelocytes % % Nucleated RBC % Abs Neuts (Manual) (1.3-6.7) K/mm3 Abs Lymphs (Manual) (1.1-4.5) K/mm3 Abs Monocytes (Manual) (0.1-0.90) K/mm3 Platelet Estimate (Adequate) Ovalocytes Schistocytes PT (11.1-14.7) Seconds INR D-Dimer (<0.48) ug/mL Methemoglobin (0-1.5) %THb Sodium Potassium Chloride Carbon Dioxide Anion Gap BUN 56 H D Creatinine Cancelled 4.40 H Estim Creat Clear Calc Cancelled 13 Estimated GFR Cancelled Glucose Lactic Acid (0.7-2.0) mmol/L Calcium Total Bilirubin AST ALT Alkaline Phosphatase Troponin I (0.000-0.034) ng/mL NT-Pro-B Natriuret Pep (19.9-100) pg/mL Total Protein Albumin Nasal MRSA (PCR) Influenza A (RT-PCR) Influenza B (RT-PCR) RSV (RT-PCR) SARS-CoV-2 RNA (RT-PCR) 05/11/24 05/11/24 05/11/24 Range/Units 15:55 15:55 15:55 WBC (4.5-10.0) K/mm3 RBC (4.6-6.20) M/mm3 Hgb (14.0-18.0) g/dL Hct (42.0-52.0) % MCV (80-100) fl MCH (26-34) pg MCHC (32-36) g/dl RDW (11.5-14.5) % Plt Count (150-375) k/mm3 MPV (7.4-10.4) fl Immature Gran % (Auto) Neut % (Auto) Lymph % (Auto) [place] % (Auto) Eos % (Auto) Baso % (Auto) Lymph # (Auto) [place] # (Auto) Eos # (Auto) Baso # (Auto) Abs Immat Gran (auto) Absolute Neuts (auto) Absolute Nucleated RBC Total Counted Neutrophils % (Manual) (46-73) % Band Neutrophils % (0-6) % Lymphocytes % (Manual) (18-44) % Monocytes % (Manual) (3-9) % Metamyelocytes % % Nucleated RBC % Abs Neuts (Manual) (1.3-6.7) K/mm3 Abs Lymphs (Manual) (1.1-4.5) K/mm3 Abs Monocytes (Manual) (0.1-0.90) K/mm3 Platelet Estimate (Adequate) Ovalocytes Schistocytes PT (11.1-14.7) Seconds INR D-Dimer (<0.48) ug/mL Methemoglobin (0-1.5) %THb Sodium Potassium Chloride Carbon Dioxide Anion Gap BUN Creatinine Estim Creat Clear Calc Estimated GFR 13 L Glucose Cancelled 163 H Lactic Acid 5.5 H* (0.7-2.0) mmol/L Calcium Cancelled 8.6 Total Bilirubin Cancelled AST ALT Alkaline Phosphatase Troponin I (0.000-0.034) ng/mL NT-Pro-B Natriuret Pep (19.9-100) pg/mL Total Protein Albumin Nasal MRSA (PCR) Influenza A (RT-PCR) Influenza B (RT-PCR) RSV (RT-PCR) SARS-CoV-2 RNA (RT-PCR) 05/11/24 05/11/24 05/11/24 Range/Units 15:55 15:55 15:55 WBC (4.5-10.0) K/mm3 RBC (4.6-6.20) M/mm3 Hgb (14.0-18.0) g/dL Hct (42.0-52.0) % MCV (80-100) fl MCH (26-34) pg MCHC (32-36) g/dl RDW (11.5-14.5) % Plt Count (150-375) k/mm3 MPV (7.4-10.4) fl Immature Gran % (Auto) Neut % (Auto) Lymph % (Auto) [place] % (Auto) Eos % (Auto) Baso % (Auto) Lymph # (Auto) [place] # (Auto) Eos # (Auto) Baso # (Auto) Abs Immat Gran (auto) Absolute Neuts (auto) Absolute Nucleated RBC Total Counted Neutrophils % (Manual) (46-73) % Band Neutrophils % (0-6) % Lymphocytes % (Manual) (18-44) % Monocytes % (Manual) (3-9) % Metamyelocytes % % Nucleated RBC % Abs Neuts (Manual) (1.3-6.7) K/mm3 Abs Lymphs (Manual) (1.1-4.5) K/mm3 Abs Monocytes (Manual) (0.1-0.90) K/mm3 Platelet Estimate (Adequate) Ovalocytes Schistocytes PT (11.1-14.7) Seconds INR D-Dimer (<0.48) ug/mL Methemoglobin (0-1.5) %THb Sodium Potassium Chloride Carbon Dioxide Anion Gap BUN Creatinine Estim Creat Clear Calc Estimated GFR Glucose Lactic Acid (0.7-2.0) mmol/L Calcium Total Bilirubin 1.1 AST Cancelled 46 ALT Cancelled 21 Alkaline Phosphatase Cancelled Troponin I (0.000-0.034) ng/mL NT-Pro-B Natriuret Pep (19.9-100) pg/mL Total Protein Albumin Nasal MRSA (PCR) Influenza A (RT-PCR) Influenza B (RT-PCR) RSV (RT-PCR) SARS-CoV-2 RNA (RT-PCR) 05/11/24 05/11/24 05/11/24 Range/Units 15:55 15:55 15:55 WBC (4.5-10.0) K/mm3 RBC (4.6-6.20) M/mm3 Hgb (14.0-18.0) g/dL Hct (42.0-52.0) % MCV (80-100) fl MCH (26-34) pg MCHC (32-36) g/dl RDW (11.5-14.5) % Plt Count (150-375) k/mm3 MPV (7.4-10.4) fl Immature Gran % (Auto) Neut % (Auto) Lymph % (Auto) [place] % (Auto) Eos % (Auto) Baso % (Auto) Lymph # (Auto) [place] # (Auto) Eos # (Auto) Baso # (Auto) Abs Immat Gran (auto) Absolute Neuts (auto) Absolute Nucleated RBC Total Counted Neutrophils % (Manual) (46-73) % Band Neutrophils % (0-6) % Lymphocytes % (Manual) (18-44) % Monocytes % (Manual) (3-9) % Metamyelocytes % % Nucleated RBC % Abs Neuts (Manual) (1.3-6.7) K/mm3 Abs Lymphs (Manual) (1.1-4.5) K/mm3 Abs Monocytes (Manual) (0.1-0.90) K/mm3 Platelet Estimate (Adequate) Ovalocytes Schistocytes PT (11.1-14.7) Seconds INR D-Dimer (<0.48) ug/mL Methemoglobin (0-1.5) %THb Sodium Potassium Chloride Carbon Dioxide Anion Gap BUN Creatinine Estim Creat Clear Calc Estimated GFR Glucose Lactic Acid (0.7-2.0) mmol/L Calcium Total Bilirubin AST ALT Alkaline Phosphatase 90 Troponin I 0.102 H* (0.000-0.034) ng/mL NT-Pro-B Natriuret Pep 00789 H (19.9-100) pg/mL Total Protein Cancelled 7.0 Albumin Cancelled 3.6 Nasal MRSA (PCR) Influenza A (RT-PCR) Influenza B (RT-PCR) RSV (RT-PCR) SARS-CoV-2 RNA (RT-PCR) 05/11/24 Range/Units 18:25 WBC (4.5-10.0) K/mm3 RBC (4.6-6.20) M/mm3 Hgb (14.0-18.0) g/dL Hct (42.0-52.0) % MCV (80-100) fl MCH (26-34) pg MCHC (32-36) g/dl RDW (11.5-14.5) % Plt Count (150-375) k/mm3 MPV (7.4-10.4) fl Immature Gran % (Auto) Neut % (Auto) Lymph % (Auto) [place] % (Auto) Eos % (Auto) Baso % (Auto) Lymph # (Auto) [place] # (Auto) Eos # (Auto) Baso # (Auto) Abs Immat Gran (auto) Absolute Neuts (auto) Absolute Nucleated RBC Total Counted Neutrophils % (Manual) (46-73) % Band Neutrophils % (0-6) % Lymphocytes % (Manual) (18-44) % Monocytes % (Manual) (3-9) % Metamyelocytes % % Nucleated RBC % Abs Neuts (Manual) (1.3-6.7) K/mm3 Abs Lymphs (Manual) (1.1-4.5) K/mm3 Abs Monocytes (Manual) (0.1-0.90) K/mm3 Platelet Estimate (Adequate) Ovalocytes Schistocytes PT (11.1-14.7) Seconds INR D-Dimer (<0.48) ug/mL Methemoglobin (0-1.5) %THb Sodium Potassium Chloride Carbon Dioxide Anion Gap BUN Creatinine Estim Creat Clear Calc Estimated GFR Glucose Lactic Acid (0.7-2.0) mmol/L Calcium Total Bilirubin AST ALT Alkaline Phosphatase Troponin I (0.000-0.034) ng/mL NT-Pro-B Natriuret Pep (19.9-100) pg/mL Total Protein Albumin Nasal MRSA (PCR) Pending Influenza A (RT-PCR) Pending Influenza B (RT-PCR) Pending RSV (RT-PCR) Pending SARS-CoV-2 RNA (RT-PCR) Pending ABG Data ABG results: 05/11/24 15:55 Puncture Site Left radial ABG pH 7.413 ABG pCO2 29.2 L ABG pO2 64.7 L ABG PO2/FiO2 Ratio 1.47 ABG HCO3 18.2 L ABG O2 Saturation 93.3 L ABG O2 Content 16.2 ABG Base Excess -5.1 A-a Gradient 215.7 Oxyhemoglobin 91.1 Carboxyhemoglobin 0.8 Reduced Hemoglobin 7.8 H Total Hemoglobin 12.6 O2 Delivery Device Nasal cannula O2 Liters/Min 6.0 FiO2 44 Imaging Data Radiologist's impression: ITS Impressions Chest X-Ray 05/11/24 16:49 IMPRESSION: Right upper lobe and left lower lobe consolidating infiltrates, new since 03/13 2024 suggesting bilateral pneumonia Chest/Abdomen/Pelvis CT 05/11/24 18:29 IMPRESSION: Extensive right upper lobe, middle lobe and left lower lobe consolidating pneumonia, with mild mediastinal reactive lymph node enlargement Occasional pulmonary nodules, likely related to pulmonary granulomatous disease 29 x 31 mm left adrenal low-attenuation mass, likely due to adrenal adenoma, less likely metastasis Normal appendix Minimal sigmoid diverticulosis; no evidence of diverticulitis Moderate prostatomegaly 2. Fusiform infrarenal abdominal aortic aneurysms, measuring up to 4 cm Central venous right common femoral catheter in right common femoral vein ECG Data EKG #1: ECG completion date: 05/11/24 ECG completion time: 15:53 EKG Interpretation: normal rate (78), sinus rhythm, no ectopy, no ST changes, normal QT and NL axis Critical Care Time Critical Care Time Critical Care Time: Yes Total Critical Care Time: 60 Discharge Plan Discharge Clinical Impression: Septic shock, LEIA (acute kidney injury) Pneumonia Qualifiers: Pneumonia type: due to unspecified organism Laterality: right Lung location: upper lobe of lung Qualified Code(s): J18.9 - Pneumonia, unspecified organism Patient Disposition: Still a Patient Condition: Stable Time of Disposition: 18:20
[2024-05-11] MEDS: CEFEPIME 1 GM/NS 50 ML 1 GM/50 ML BAG IVPB (18:41)
[2024-05-11] MEDS: DOXYCYCLINE 100 MG/NS 100 ML 100 MG/100 ML BAG IVPB (19:03)
[2024-05-11 19:07] LABS: Reflex Lactic Acid Yes or No Add Lactic
[2024-05-11 19:12] LABS: Influenza A QL RT-PCR Negative (Negative); Influenza B QL RT-PCR Negative (Negative); RSV RNA, RT-PCR Negative (Negative); SARS-CoV-2 RNA PCR Negative (Negative)
[2024-05-11] MEDS: SODIUM CHLORIDE 0.9% IV 1,000 ML 125 ML IV CONT (19:16)
--- NOTE | 2024-05-11 19:25 | ECG_ITS ---
Test Date: 2024-05-11 19:25:02 Measurements Intervals [place] Rate: 74 P: 51 MS: 167 QRS: 25 QRSD: 101 T: -27 QT: 405 QTc: 451 Interpretive Statements SINUS RHYTHM WITH MARKED SINUS ARRHYTHMIA EARLY PRECORDIAL R/S TRANSITION NONSPECIFIC ST & T-WAVE ABNORMALITY- ANTEROLAT/INF LEADS BASELINE ARTIFACT- I, II, III, AVR, AVL, AVF, V2-V6 BORDERLINE ECG Compared to ECG 05/11/2024 15:53:21 NO SIGNIFICANT CHANGE Electronically Signed On 05-12-2024 08:48:39 CART ATTENDANT by Hunter Shah D.O.
[2024-05-11 19:48] LABS: MRSA (PCR) NOT DETECTED (NOT DETECTE)
[2024-05-11] MEDS: NOREPINEPHRINE 8 MG/D5W 250 ML 8 MG/250 ML BAG 9.38 MG IV CONT (20:30)
[2024-05-11] MEDS: VANCOMYCIN 1,250 MG/NS 250 ML 1,250 MG/250 ML BAG 166.67 MG IVPB (20:30)
[2024-05-11 21:24] LABS: Lactic Acid 2.2 mmol/L (0.7-2.0)
[2024-05-11 21:47] LABS: Anion Gap 9 mmol/L (4-12); Blood Urea Nitrogen 59 mg/dL (9-20); Calcium 7.7 mg/dL (8.4-10.2); Carbon Dioxide 24 mmol/L (22-30); Chloride 98 mmol/L (98-107); Estimated CRCL calculation 13 ml/min; Estimated Glomerular Filt Rate 13; Glucose 178 mg/dL (65-110); Potassium 3.8 mmol/L (3.4-5.0); Sodium 131 mmol/L (137-145)
--- NOTE | 2024-05-11 21:50 | ADMGEN ---
This patient, Eladio Morrissey, was admitted to Intensive Care Unit-6 on 05/11/24 at 2010. Patient/family oriented to hospital policies and general routines including ID bracelet, bed and alarms, visiting hours, pain management, procedures, bathroom and other care routines, personal items, smoking policy, room service/diet, and visiting hours. Information on how to activate the Rapid Response Team has been discussed. Patient/Family are encouraged to report perceived risks to care and to ask questions if they do not understand what they are told or what they should do.
[2024-05-11 22:29] LABS: MRSA (PCR) NOT DETECTED (NOT DETECTE)
[2024-05-11 23:46] LABS: Creatine Kinase 471 U/L (55-170); Magnesium 1.5 mg/dL (1.6-2.3)
[2024-05-12] VITALS (60 sets, daily range): BP systolic 91–135; BP diastolic 41–75; PULSE 56–78; RESP 19–32; TEMP 35.9–36.9; O2SAT 89–100
[2024-05-12 00:13] LABS: CRP > 45.0 mg/dL (<1.0)
[2024-05-12 00:15] LABS: Erythrocyte Sedimentation Rate 104 mm/hr (0-20)
[2024-05-12] MEDS: IPRATROPIUM 0.5 MG/ALBUTEROL SULFATE 2.5 MG AMPUL.NEB 3 ML INHALATION ×4 (02:14→20:29)
[2024-05-12 02:51] LABS: Total Protein Urine Random 195 mg/dL
[2024-05-12 03:15] LABS: Eosinophil Urine None Seen % (None Seen); Urine Eos QC 2nd Tech Confirmed
[2024-05-12 03:17] LABS: Creatinine Urine 374.6 mg/dL; Ur Ttl Prot Creatinine Ratio 0.52 mg/mg (0-0.20)
[2024-05-12 03:28] LABS: Add Urine Microscopic? YES; Appearance Urine Turbid (Clear); Bacteria Urine 2+ /hpf; Bilirubin Urine 1+ (Negative); Blood Urine 3+ (Negative); Color Urine Dark Yellow (Yellow); Glucose Urine UA 1+ mg/dL (Negative); Ketones Urine Trace mg/dL (Negative); Leukocyte Esterase Ur 1+ LEU/UL (Negative); Need Manual Microscopic Reviewed; Nitrate Urine Negative (Negative); Non Pathogenic Casts >20; Potassium Urine Random 57.9 meq/L; Protein Urine 3+ mg/dL (Negative); RBC Urine 0-2 /hpf (0-2); Sodium Urine Random 13 meq/L; Specific Grav Ur 1.025 (1.001-1.035); Squamous Epithelial Cell Urine Many /hpf (Few); WBC Urine 21-50 /hpf (0-3)
[2024-05-12 03:38] LABS: Creatinine Urine 382.4 mg/dL
[2024-05-12] MEDS: SODIUM CHLORIDE 0.9% IV 1,000 ML 125 ML IV CONT (04:10)
[2024-05-12 05:12] LABS: Basophils Absolute Auto 0.1 K/mm3 (0.0-0.1); Basophils Percent Auto 0.6 % (0.2-1.2); Eosinophils Absolute Auto 0.1 K/mm3 (0-0.3); Eosinophils Percent Auto 0.6 % (0-4.4); Hematocrit 32.7 % (42.0-52.0); Hemoglobin 11.2 g/dL (14.0-18.0); Immature Granulocyte Absolute 0.06 K/mm3 (0.00-0.031); Immature Granulocyte Percent A 0.3 % (0-0.5); Lymphocytes Absolute Auto 0.38 K/mm3 (0.9-3.2); Lymphocytes Percent Auto 1.9 % (18.3-44.2); Mean Corpuscular HGB Conc 34.3 g/dl (32-36); Mean Corpuscular Hemoglobin 29.4 pg (26-34); Mean Corpuscular Volume 85.8 fl (80-100); Mean Platelet Volume 9.9 fl (7.4-10.4); Monocytes Absolute Auto 0.5 K/mm3 (0.1-0.6); Monocytes Percent Auto 2.6 % (2.6-8.5); Neutrophils Absolute Auto 19.1 K/mm3 (1.3-6.7); Platelet Count Result 241 k/mm3 (150-375); Red Blood Count 3.81 M/mm3 (4.6-6.20); Red Cell Distribution Width 13.8 % (11.5-14.5); White Blood Count 20.3 K/mm3 (4.5-10.0)
[2024-05-12 05:25] LABS: Alanine Aminotransferase 15 U/L (6-50); Albumin Level 3.1 g/dL (3.5-5.1); Alkaline Phosphatase 88 U/L (38-126); Anion Gap 12 mmol/L (4-12); Aspartate Amino Transferase 35 U/L (17-59); Bilirubin,Total 0.6 mg/dL (0.2-1.3); Blood Urea Nitrogen 64 mg/dL (9-20); Calcium 7.4 mg/dL (8.4-10.2); Carbon Dioxide 22 mmol/L (22-30); Chloride 99 mmol/L (98-107); Estimated CRCL calculation 13 ml/min; Estimated Glomerular Filt Rate 13; Glucose 200 mg/dL (65-110); Lactic Acid Reflex 1.4 mmol/L (0.7-2.0); Magnesium 1.6 mg/dL (1.6-2.3); Potassium 3.8 mmol/L (3.4-5.0); Sodium 133 mmol/L (137-145)
[2024-05-12 05:31] LABS: Alveolar/Arterial O2 Gradient 625.7 mmHg; Base Excess ABG -6.7 mEq/l (+/-2.0); Carboxyhemoglobin 0.2 % THb (0-2.0); Fractional Inspired Oxygen 100 %; HCO3 ABG 17.2 mEq/l (22.0-26.0); Methemoglobin ABG 0.3 %THb (0-1.5); Oxygen Content ABG 14.6 %vol (16.0-22.0); Oxyhemoglobin 88.8 % THb (90.0-100.0); PCO2 ABG 29.7 mmHg (35.0-45.0); PO2 ABG 57.6 mmHg (80.0-100.0); PO2 FiO2 Ratio Arterial Blood 0.58 %; Reduced Hemoglobin 10.7 %THb (0-5.0); Total Hemoglobin 11.7 g/dL (12.0-18.0); pH ABG 7.381 (7.350-7.450)
[2024-05-12 05:32] LABS: Modified Allen's Test Pass; Site Drawn RIGHT RADIAL
[2024-05-12 05:33] LABS: Device HIGH FLOW THERAPY
[2024-05-12] MEDS: FLUTICASONE/UMECLIDIN/VILANTER 100-62.5-25 MCG ELLIPTA 1 PUFF INHALATION (07:50)
[2024-05-12] MEDS: CLOPIDOGREL BISULFATE 75 MG TABLET PO (08:05)
[2024-05-12] MEDS: INSULIN ASPART (*BKC) 100 UNITS/ML SUB-Q (08:07)
[2024-05-12 08:08] LABS: Glucose Point of Care 203 mg/dl (65-105)
[2024-05-12] MEDS: ROSUVASTATIN 20 MG TABLET 40 MG PO (08:08)
[2024-05-12] MEDS: DOXYCYCLINE HYCLATE 100 MG TABLET PO (08:08)
[2024-05-12] MEDS: ACETAMINOPHEN 325 MG TABLET 650 MG PO (08:08)
[2024-05-12] MEDS: guaiFENesin 12 HR 600 MG TABCR 1200 MG PO ×2 (08:08→20:57)
[2024-05-12] MEDS: HEPARIN SODIUM 5,000 UNITS/ML VIAL 5000 UNITS SUB-Q ×2 (08:09→20:57)
[2024-05-12] MEDS: FAMOTIDINE 20 MG/2 ML VIAL IV PUSH ×2 (08:09→20:57)
[2024-05-12] MEDS: ASPIRIN 81 MG ENTERIC TABLET PO (08:09)
[2024-05-12] MEDS: HYDROCORTISONE SODIUM SUCCINATE 100 MG/2 ML VIAL 50 MG IV PUSH ×3 (09:22→17:20)
[2024-05-12] MEDS: PERFLUTREN LIPID MICROSPHERES 1.5 ML VIAL DILUTED TO 10 ML TOTAL VOLUME IV PUSH (09:25)
--- NOTE | 2024-05-12 10:33 | P.CONCA_ITS ---
Assessment and Plan Assessment and plan (1) Syncope: Code(s): R55 - Syncope and collapse Status: Acute Assessment and Plan: Probably due to septic shock. (2) Multifocal pneumonia: Code(s): J18.9 - Pneumonia, unspecified organism Status: Acute Assessment and Plan: On antibiotics as per hospitalist. (3) Acute kidney injury: Code(s): N17.9 - Acute kidney failure, unspecified Status: Acute Assessment and Plan: Probably due to septic shock. (4) Tobacco dependence: Code(s): F17.200 - Nicotine dependence, unspecified, uncomplicated Status: Acute Assessment and Plan: Counseled regarding smoking cessation. (5) Hypertension: Code(s): I10 - Essential (primary) hypertension Status: Acute Assessment and Plan: Improved with IVF. Monitor. (6) Elevated troponin: Code(s): R79.89 - Other specified abnormal findings of blood chemistry Status: Acute Assessment and Plan: Troponin peaked at .102 and trending down. Due to septic shock, pneumonia, acute renal failure. Doubt ACS without chest pains, no EKG ST changes. Obtain echo. History of Present Illness History of Present Illness Consult date/time: 05/12/24 10:33 Reason For Visit: Septic Shock Narrative: 74 yr old man presents to ER after 4 syncopal episodes. He has a history of COPD, smoking, hypertension, dyslipidemia, DM, PAD with stent to right femoral artery, right carotid stent. Reports not feeling well for 5 days with coughing and sputum production. Then yesterday he passed out 4 times and was sweating. Normally he is limited at walking 1/2 block due to GLEZ and leg fatigue. He smokes 1 ppd. Denies orthopnea, PND, edema, palpitations. Review of Systems Review of Systems: All systems reviewed & are unremarkable except as noted in HPI and below Constitutional: Constitutional: Reports as per HPI, Denies chills and Denies fever(s) Cardiovascular: Cardiovascular: Reports as per HPI, Denies chest pain and Denies irregular heart rhythm Respiratory: Respiratory: Reports as per HPI, Reports cough and Reports dyspnea Gastrointestinal: Gastrointestinal: Reports as per HPI and Denies abdominal pain Genitourinary: Genitourinary: Reports as per HPI and Denies dysuria Musculoskeletal: Musculoskeletal: Reports as per HPI Neurologic: Reports as per HPI, Reports dizziness and Reports syncope [facility] Past Medical History Medical History (Updated 05/12/24 @ 10:37 by Hutner Shah DO) Arthritis Carotid stenosis Chronic obstructive pulmonary disease Gout Hyperlipidemia Hypertension Hypothyroidism Obstructive sleep apnea Peripheral vascular disease Tobacco dependence Type 2 diabetes mellitus Surgical History Surgical History (Updated 05/11/24 @ 21:34 by Babs Arriaza PA-C) History of cardiac catheterization History of carotid endarterectomy History of cholecystectomy History of revascularization procedure of lower extremity Family History Family History Father Hypertension Cerebrovascular accident Grandparent Family history of malignant neoplasm Diabetes mellitus Sibling Family history of diabetes mellitus in first degree relative Diabetes mellitus Mother Hyperlipidemia Social History Social History (Updated 05/11/24 @ 21:35 by Babs Arriaza PA-C) Social History: Surrogate medical decision maker: Brooks Morrissey, son ([phone]) and Kira Morrissey, spouse ([phone]). Code status: Full code. Smoking packs per day: 1 Smoking cigarettes per day: 20.0 Years smoked: 30 Smoking pack-years: 30.00 Smoking status: Current every day smoker Tobacco type: cigarettes Second hand tobacco smoke exposure: Yes Alcohol intake: never Substance use: current Substance use type: marijuana Other substance usage details: smoking and edibles Do You Feel Safe in your Home?: Yes Lack of Transportation: No Lack of Food: Never True Current Housing: I Have Housing Concerned About Future Housing: No Difficulty Paying Gas/Electric Bills: No Difficulty Paying for Meds: No Currently Unemployed: No Education: High School Diploma/GED Difficulty w/ Childcare or Family Care: No Living arrangements: with family Occupation/Education: retired Spiritual care concerns: No Meds Home Medications and Allergies Home Medications Medication Instructions Recorded Confirmed Type albuterol sulfate 2.5 mg/3 mL 2.5 mg (3 mL) inhalation Q4-6H PRN 11/11/22 1 07/11/23 Rx (0.083 %) solution for nebulization shortness of breath or wheezing #75 mL albuterol sulfate 90 mcg/actuation 1 inh inhalation QID PRN 02/02/23 05/11/24 History aerosol inhaler (ProAir HFA) SOB/Wheezing aspirin 81 mg tablet,delayed 81 mg PO DAILY 02/02/23 05/11/24 History release (Adult Low Dose Aspirin) duloxetine 60 mg capsule,delayed 60 mg PO DAILY #90 caps 01/03/24 05/11/24 Rx release empagliflozin 12.5 mg-metformin 1 tablet PO BID #180 tabs 01/03/24 05/11/24 Rx 1,000 mg tablet (Synjardy) hydrochlorothiazide 25 mg tablet 25 mg PO DAILY #90 tabs 01/03/24 05/11/24 Rx levothyroxine 75 mcg tablet 75 mcg PO DAILY #90 tabs 01/03/24 05/11/24 Rx rosuvastatin 40 mg tablet 40 mg PO DAILY #90 tabs 01/03/24 05/11/24 Rx budesonide 160 mcg-glycopyr 9 2 inh inhalation BID #10.7 grams 05/05/24 05/11/24 Rx mcg-formot 4.8 mcg/actuation HFA inhaler (Breztri Aerosphere) sildenafil 100 mg tablet 100 mg PO DAILY PRN sexual 05/05/24 05/11/24 Rx activity #30 tabs amlodipine 10 mg tablet 10 mg PO DAILY 05/11/24 05/11/24 History carvedilol 12.5 mg tablet 12.5 mg PO DAILY 05/11/24 05/11/24 History clopidogrel 75 mg tablet 75 mg PO DAILY 05/11/24 05/11/24 History Allergies Allergy/AdvReac Type Severity Reaction Status Date / Time penicillin G Allergy Mild Unknown Verified 05/11/24 15:38 codeine Allergy Unknown Unknown Verified 05/11/24 15:38 Penicillins Allergy Unknown Unknown Verified 05/11/24 15:38 latex Allergy Unknown Verified 05/11/24 15:38 Vital Signs Vital Signs - 24 hr 05/11/24 15:46 05/11/24 16:04 05/11/24 16:23 Temperature 98.0 F Pulse Rate 79 76 74 Respiratory Rate 29 H 32 H 26 H Blood Pressure 74/56 L 93/45 L 89/52 L Pulse Oximetry 87 L 95 96 Oxygen Delivery Nasal Cannula Nasal Cannula Oxygen Flow Rate 6.0 6 Fraction of Inspired Oxygen 05/11/24 16:42 05/11/24 16:48 05/11/24 17:05 Temperature Pulse Rate 74 79 74 Respiratory Rate 29 H 28 H 29 H Blood Pressure 92/47 L 87/55 L 89/47 L Pulse Oximetry 93 91 94 Oxygen Delivery Oxygen Flow Rate Fraction of Inspired Oxygen 05/11/24 17:24 05/11/24 18:01 05/11/24 18:05 Temperature 97.9 F Pulse Rate 75 76 Respiratory Rate 28 H 18 Blood Pressure 92/45 L 85/48 L 82/51 L Pulse Oximetry 93 94 Oxygen Delivery Oxygen Flow Rate Fraction of Inspired Oxygen 05/11/24 17:15 05/11/24 17:20 05/11/24 18:50 Temperature 98.3 F Pulse Rate 73 Respiratory Rate 26 H Blood Pressure 84/52 L Pulse Oximetry 97 94 96 Oxygen Delivery Non-Rebreather Mask High Flow Therapy with Na Oxygen Flow Rate 15 35 Fraction of Inspired Oxygen 75 05/11/24 20:23 05/11/24 20:00 05/11/24 20:00 Temperature 98.3 F Pulse Rate 74 76 76 Respiratory Rate 22 H 30 H Blood Pressure 110/40 L Pulse Oximetry 93 93 Oxygen Delivery High Flow Therapy with Na Oxygen Flow Rate 45 Fraction of Inspired Oxygen 98 05/11/24 20:30 05/11/24 22:00 05/11/24 22:00 Temperature Pulse Rate 74 76 74 Respiratory Rate 26 H Blood Pressure 83/45 L 100/43 L Pulse Oximetry 93 Oxygen Delivery Oxygen Flow Rate Fraction of Inspired Oxygen 05/11/24 22:00 05/11/24 22:15 05/11/24 22:15 Temperature Pulse Rate 76 76 71 Respiratory Rate 28 H Blood Pressure 100/43 L 96/57 L Pulse Oximetry 92 Oxygen Delivery High Flow Therapy with Na Oxygen Flow Rate 45 Fraction of Inspired Oxygen 98 05/11/24 22:37 05/11/24 22:45 05/11/24 23:41 Temperature Pulse Rate 75 78 71 Respiratory Rate 28 H Blood Pressure 99/52 L 114/56 L Pulse Oximetry 91 Oxygen Delivery High Flow Therapy with Na Oxygen Flow Rate 45 Fraction of Inspired Oxygen 98 05/11/24 23:42 05/12/24 00:00 05/12/24 01:00 Temperature 98.4 F 97.8 F Pulse Rate 71 67 71 Respiratory Rate 24 H 22 H Blood Pressure 96/57 L 114/58 L Pulse Oximetry 94 96 Oxygen Delivery Oxygen Flow Rate Fraction of Inspired Oxygen 05/12/24 01:06 05/12/24 01:31 05/12/24 01:30 Temperature Pulse Rate 71 64 61 Respiratory Rate 21 H Blood Pressure 114/58 L 96/46 L 96/46 L Pulse Oximetry 94 Oxygen Delivery Oxygen Flow Rate Fraction of Inspired Oxygen 05/12/24 01:45 05/12/24 02:00 05/12/24 02:00 Temperature 97.4 F L Pulse Rate 66 61 62 Respiratory Rate 23 H 22 H Blood Pressure 111/54 L 103/58 L Pulse Oximetry 95 95 Oxygen Delivery Oxygen Flow Rate Fraction of Inspired Oxygen 05/12/24 02:14 05/12/24 02:19 05/12/24 02:23 Temperature Pulse Rate 68 70 69 Respiratory Rate 28 H 23 H Blood Pressure Pulse Oximetry 95 Oxygen Delivery High Flow Therapy with Na Oxygen Flow Rate 45 Fraction of Inspired Oxygen 98 05/12/24 02:41 05/12/24 03:00 05/12/24 03:03 Temperature 97.3 F L Pulse Rate 71 70 72 Respiratory Rate 32 H 22 H Blood Pressure 93/41 L 93/41 L Pulse Oximetry 91 89 L Oxygen Delivery High Flow Therapy with Na Oxygen Flow Rate 40 Fraction of Inspired Oxygen 90 05/12/24 03:59 05/12/24 03:59 05/12/24 04:00 Temperature 97.2 F L Pulse Rate 74 73 72 Respiratory Rate 23 H 23 H Blood Pressure 121/53 L Pulse Oximetry 89 L 89 L Oxygen Delivery High Flow Therapy with Na Oxygen Flow Rate 45 Fraction of Inspired Oxygen 98 05/12/24 04:03 05/12/24 04:48 05/12/24 05:15 Temperature Pulse Rate 72 76 78 Respiratory Rate Blood Pressure 121/53 L 135/61 124/63 Pulse Oximetry Oxygen Delivery Oxygen Flow Rate Fraction of Inspired Oxygen 05/12/24 05:45 05/12/24 06:00 05/12/24 06:00 Temperature 97.7 F Pulse Rate 75 70 72 Respiratory Rate 24 H Blood Pressure 130/62 116/55 L Pulse Oximetry 93 Oxygen Delivery Oxygen Flow Rate Fraction of Inspired Oxygen 05/12/24 06:00 05/12/24 06:32 05/12/24 06:48 Temperature Pulse Rate 72 73 74 Respiratory Rate 25 H Blood Pressure 115/55 L 123/57 L 120/57 L Pulse Oximetry 94 Oxygen Delivery Oxygen Flow Rate Fraction of Inspired Oxygen 05/12/24 07:50 05/12/24 07:50 05/12/24 08:06 Temperature Pulse Rate 75 74 Respiratory Rate 24 H 24 H Blood Pressure Pulse Oximetry 95 Oxygen Delivery High Flow Therapy with Na Oxygen Flow Rate 45 Fraction of Inspired Oxygen 98 05/12/24 08:00 05/12/24 08:45 05/12/24 09:18 Temperature 97.8 F Pulse Rate 75 70 73 Respiratory Rate 24 H 28 H Blood Pressure 120/57 L Pulse Oximetry 94 96 97 Oxygen Delivery BiPAP BiPAP Oxygen Flow Rate Fraction of Inspired Oxygen 05/12/24 08:00 05/12/24 08:00 05/12/24 10:00 Temperature 98.0 F Pulse Rate 74 74 73 Respiratory Rate 23 H 21 H Blood Pressure 113/57 L Pulse Oximetry 94 100 Oxygen Delivery High Flow Therapy with Na Oxygen Flow Rate 45 Fraction of Inspired Oxygen 98 Exam Const: General: cooperative, healthy appearing and comfortable Resp: Auscultation: wheezes right lower and diminished lung sounds Cardio: Rate: regular rate Rhythm: regular rhythm Heart sounds: no murmurs Peripheral pulses: dorsalis pedis present GI: GI Palp: No abdominal tenderness and Yes Soft to palpation Neuro: General: oriented to person, oriented to place and oriented to time Extrem: Right lower extremity: no edema Left lower extremity: no edema Results Labs and Meds 05/12/24 04:35 05/12/24 04:35 Lab results: Cardiac Enzymes 05/11/24 05/11/24 05/11/24 Range/Units 15:55 15:55 20:46 AST Cancelled 46 Troponin I 0.102 H* 0.080 H* D (0.000-0.034) ng/mL 05/12/24 Range/Units 04:35 AST 35 Troponin I (0.000-0.034) ng/mL Coagulation 05/11/24 Range/Units 15:55 PT 14.6 (11.1-14.7) Seconds CBC 05/11/24 05/12/24 Range/Units 15:55 04:35 WBC 21.8 H 20.3 H (4.5-10.0) K/mm3 RBC 4.14 L 3.81 L (4.6-6.20) M/mm3 Hgb 12.2 L 11.2 L (14.0-18.0) g/dL Hct 35.5 L 32.7 L (42.0-52.0) % Plt Count 231 241 (150-375) k/mm3 Lymph # (Auto) Not Reportable 0.38 L [place] # (Auto) Not Reportable 0.5 Eos # (Auto) Not Reportable 0.1 Baso # (Auto) Not Reportable 0.1 Comprehensive Metabolic Panel 05/11/24 05/11/24 05/11/24 Range/Units 15:55 15:55 15:55 Sodium Cancelled 131 L Potassium Cancelled 3.7 Chloride Cancelled Carbon Dioxide BUN Creatinine Glucose Calcium AST ALT Alkaline Phosphatase Total Protein Albumin 05/11/24 05/11/24 05/11/24 Range/Units 15:55 15:55 15:55 Sodium Potassium Chloride 95 L Carbon Dioxide Cancelled 22 BUN Cancelled 56 H D Creatinine Cancelled Glucose Calcium AST ALT Alkaline Phosphatase Total Protein Albumin 05/11/24 05/11/24 05/11/24 Range/Units 15:55 15:55 15:55 Sodium Potassium Chloride Carbon Dioxide BUN Creatinine 4.40 H Glucose Cancelled 163 H Calcium Cancelled 8.6 AST Cancelled ALT Alkaline Phosphatase Total Protein Albumin 05/11/24 05/11/24 05/11/24 Range/Units 15:55 15:55 15:55 Sodium Potassium Chloride Carbon Dioxide BUN Creatinine Glucose Calcium AST 46 ALT Cancelled 21 Alkaline Phosphatase Cancelled 90 Total Protein Cancelled Albumin 05/11/24 05/11/24 05/11/24 Range/Units 15:55 15:55 20:24 Sodium 131 L Potassium 3.8 Chloride 98 Carbon Dioxide 24 BUN 59 H Creatinine 4.40 H Glucose 178 H Calcium 7.7 L AST ALT Alkaline Phosphatase Total Protein 7.0 Albumin Cancelled 3.6 05/12/24 Range/Units 04:35 Sodium 133 L Potassium 3.8 Chloride 99 Carbon Dioxide 22 BUN 64 H Creatinine 4.60 H Glucose 200 H Calcium 7.4 L AST 35 ALT 15 Alkaline Phosphatase 88 Total Protein 7.0 Albumin 3.1 L Intake and Output 05/11/24 05/12/24 05/12/24 23:59 07:59 15:59 Intake Total 923.7 1151.3 0 Output Total 20 Balance 923.7 1131.3 0 Intake: IV 923.7 1151.3 Norepinephrine 8 mg/D5w 250 ml 23.7 151.3 8 mg In 250 ml @ 12 MCG/MIN 22. 5 mls/hr IV CONT .Q11H7M [facility] Rx #:[id number] Sodium Chloride 0.9% IV 1,000 1000 ml @ 125 mls/hr IV CONT .Q8H [facility] Rx#:[id number] Sodium Chloride 0.9% IV 500 ml 500 @ 999 mls/hr IV CONT .Q31M [facility] Rx#:[id number] Cefepime 1 gm/Ns 50 ml 1 gm In 50 50 ml @ 100 mls/hr IVPB ONCE STA Rx#:[id number] Doxycycline 100 mg/Ns 100 ml 100 100 mg In 100 ml @ 100 mls/hr IVPB ONCE ONE Rx#:[id number] Vancomycin 1,250 mg/Ns 250 ml 1 250 ,250 mg In 250 ml @ 166.667 mls /hr IVPB ONCE ONE Rx#:[id number] Oral 0 Output: Catheter Urine 20 Urethral Catheter 20 Patient Weight 05/12/24 23:59 Weight 78.9 kg
--- NOTE | 2024-05-12 10:48 | P.CONIN_ITS ---
Assessment and Plan Assessment and plan (1) Acute respiratory failure: Code(s): J96.00 - Acute respiratory failure, unspecified whether with hypoxia or hypercapnia Status: Acute Assessment and Plan: Patient has baseline COPD and now presented with pneumonia. This morning he is on Airvo at 98% FiO2 along with non-rebreather mask. Although he does not appear in respiratory distress he has significant hypoxia. I have spoken with the patient and I will start him on a trial of BiPAP to see if nippv helps and allows us to wean down FiO2. I spoke to the patient and mentioned that he may need intubation and mechanical ventilation if he does not improve or continues to deteriorate. Patient is agreeable to intubation if needed. At this time patient is not in respiratory distress and is maintaining saturations. He is also not CO2 retainer as per his last ABG. He is going to be on hydrocortisone for pneumonia along with antibiotics as mentioned below Bronchodilators Cautious IV fluids (2) Septic shock: Code(s): A41.9 - Sepsis, unspecified organism; R65.21 - Severe sepsis with septic shock Status: Acute Assessment and Plan: Septic shock secondary to pneumonia and UTI Patient has received IV fluid bolus and is now on maintenance IV fluids. Cauti ous IV fluids to minimize risk of volume overload Continue Levophed titration Hydrocortisone Check echocardiogram Blood and urine cultures Empiric vancomycin cefepime and doxycycline Check urine Legionella and pneumococcal antigen Lactic acid has normalized (3) Acute kidney injury: Code(s): N17.9 - Acute kidney failure, unspecified Status: Acute Assessment and Plan: He presented with creatinine of 4.4. Baseline unknown as last recorded creati nine is from 2019 CT scan did not show any stone or hydronephrosis This is likely secondary to sepsis and shock which may have progressed to ATN Continue IV fluid Monitor urine output electrolytes and creatinine Consult nephrology (4) Multifocal pneumonia: Code(s): J18.9 - Pneumonia, unspecified organism Status: Acute Assessment and Plan: See above (5) Type 2 diabetes mellitus: Code(s): E11.9 - Type 2 diabetes mellitus without complications Status: Acute Assessment and Plan: Sliding scale insulin npo (6) Hypothyroidism: Code(s): E03.9 - Hypothyroidism, unspecified Status: Acute Assessment and Plan: Continue levothyroxine Check TSH T3 and T4 (7) Elevated troponin: Code(s): R79.89 - Other specified abnormal findings of blood chemistry Status: Acute Assessment and Plan: Mildly elevated troponin in the setting of septic shock and acute kidney failure likely to monitor radiated ischemia. Thomas denies any chest pain. Troponin level already decreasing. Continue aspirin Plavix and statin Check echo (8) Chronic obstructive pulmonary disease: Qualifiers: COPD type: emphysema Emphysema type: unspecified Qualified Code(s): J43.9 - Emphysema, unspecified Code(s): J44.9 - Chronic obstructive pulmonary disease, unspecified Status: Acute Assessment and Plan: See above (9) Electrolyte abnormality: Code(s): E87.8 - Other disorders of electrolyte and fluid balance, not elsewhere classified Status: Acute Assessment and Plan: Replace low magnesium Plan DVT prophylaxis -subcutaneous heparin Stress ulcer prophylaxis -Pepcid Nutrition -npo Code Status -patient wishes to be full code Total Critical Care Time - 40 minutes Due to a high probability of clinically significant, life threatening deterioration, the patient required my highest level of preparedness to intervene emergently and I personally spent this critical care time directly and personally managing the patient. This critical care time included obtaining a history; examining the patient; pulse oximetry; ordering and review of studies; arranging urgent treatment with development of a management plan; evaluation of patient's response to treatment; frequent reassessment; and discussions with other providers. It was exclusive of separately billable procedures and treating other patients and teaching time. Please see Assessment and Plan section and the rest of the note for further information on patient assessment and treatment [employer] Supervisor Consult Note Consult date: 05/12/24 Reason for consult: Septic shock, acute respiratory failure HPI: Eladio Morrissey is a 74 year old male with past medical history of COPD hypertension hyperlipidemia type 2 diabetes and cerebrovascular disease who was brought to ER yesterday after feeling weak for last couple of days and having syncope. Patient states that 2-3 days ago he started feeling weak. He had cough with clear sputum. He did not notice any fever. He had slight increase in shortness of breath. He felt dizzy weak and lost his consciousness couple of times. No history of head trauma or injury. His oral intake was poor. He did not had any nausea vomiting abdominal pain diarrhea dysuria hematuria hematochezia melena. He could not tell much about his syncopal episodes. All other systems were reviewed and were negative Workup in the ER showed Vital signs on arrival include a temperature of 98?, blood pressure 74/56, pulse 79, respiratory rate 29, SpO2 87%. Labs were significant for WBC count 21.8 with 17% bands, hemoglobin 12.2, platelet 231, D-dimer 3.93, sodium 131, chloride 95, carbon dioxide 22, anion gap 14, BUN 56, creatinine 4.40, lactic acid 5.5, glucose 163, proBNP 55367, troponin 0.102. He tested negative for influenza, RSV, and COVID. CT of the chest, abdomen, and pelvis showed extensive right upper lobe, middle lobe, and left lower lobe consolidating pneumonia. He received 1500 mL normal saline bolus with caution to avoid over-hydration given elevated proBNP and renal failure. Blood pressures did not improve significantly and a femoral central line was placed and he was started on norepinephrine. He was given methylprednisolone 125 mg, cefepime 1 g, doxycycline 100 mg, and vancomycin 1250 mg. He was admitted to ICU for further evaluation management This morning patient is on high-flow nasal cannula at 98% FiO2 and non- rebreather mask. He is on 5 mics of Levophed. He states that he does not feel short of breath over in respiratory distress. He denies any nausea vomiting and no other new complaints. Review of Systems Review of Systems: All systems reviewed & are unremarkable except as noted in HPI and below PMFSH Past Medical History Medical History Arthritis Carotid stenosis Chronic obstructive pulmonary disease Gout Hyperlipidemia Hypertension Hypothyroidism Obstructive sleep apnea Peripheral vascular disease Tobacco dependence Type 2 diabetes mellitus Surgical History Surgical History History of cardiac catheterization History of carotid endarterectomy History of cholecystectomy History of revascularization procedure of lower extremity Family History Family History Father Hypertension Cerebrovascular accident Grandparent Family history of malignant neoplasm Diabetes mellitus Sibling Family history of diabetes mellitus in first degree relative Diabetes mellitus Mother Hyperlipidemia Social History Social History Social History: Surrogate medical decision maker: Brooks Sellerssanjaywinston, son ([phone]) and Kira Joannewinston, spouse ([phone]). Code status: Full code. Smoking packs per day: 1 Smoking cigarettes per day: 20.0 Years smoked: 30 Smoking pack-years: 30.00 Smoking status: Current every day smoker Tobacco type: cigarettes Second hand tobacco smoke exposure: Yes Alcohol intake: never Substance use: current Substance use type: marijuana Other substance usage details: smoking and edibles Do You Feel Safe in your Home?: Yes Lack of Transportation: No Lack of Food: Never True Current Housing: I Have Housing Concerned About Future Housing: No Difficulty Paying Gas/Electric Bills: No Difficulty Paying for Meds: No Currently Unemployed: No Education: High School Diploma/GED Difficulty w/ Childcare or Family Care: No Living arrangements: with family Occupation/Education: retired Spiritual care concerns: No Meds Home Medications and Allergies Home Medications Medication Instructions Recorded Confirmed Type albuterol sulfate 2.5 mg/3 mL 2.5 mg (3 mL) inhalation Q4-6H PRN 11/11/22 05/11/24 Rx (0.083 %) solution for nebulization shortness of breath or wheezing #75 mL albuterol sulfate 90 mcg/actuation 1 inh inhalation QID PRN 02/02/23 05/11/24 Hi story aerosol inhaler (ProAir HFA) SOB/Wheezing aspirin 81 mg tablet,delayed 81 mg PO DAILY 02/02/23 05/11/24 History release (Adult Low Dose Aspirin) duloxetine 60 mg capsule,delayed 60 mg PO DAILY #90 caps 01/03/24 05/11/24 Rx release empagliflozin 12.5 mg-metformin 1 tablet PO BID #180 tabs 01/03/24 05/11/24 Rx 1,000 mg tablet (Synjardy) hydrochlorothiazide 25 mg tablet 25 mg PO DAILY #90 tabs 01/03/24 05/11/24 Rx levothyroxine 75 mcg tablet 75 mcg PO DAILY #90 tabs 01/03/24 05/11/24 Rx rosuvastatin 40 mg tablet 40 mg PO DAILY #90 tabs 01/03/24 05/11/24 Rx budesonide 160 mcg-glycopyr 9 2 inh inhalation BID #10.7 grams 05/05/24 05/11/24 Rx mcg-formot 4.8 mcg/actuation HFA inhaler (Breztri Becovillagephere) sildenafil 100 mg tablet 100 mg PO DAILY PRN sexual 05/05/24 05/11/24 Rx activity #30 tabs amlodipine 10 mg tablet 10 mg PO DAILY 05/11/24 05/11/24 History carvedilol 12.5 mg tablet 12.5 mg PO DAILY 05/11/24 05/11/24 History clopidogrel 75 mg tablet 75 mg PO DAILY 05/11/24 05/11/24 History Allergies Allergy/AdvReac Type Severity Reaction Status Date / Time penicillin G Allergy Mild Unknown Verified 05/11/24 15:38 codeine Allergy Unknown Unknown Verified 05/11/24 15:38 Penicillins Allergy Unknown Unknown Verified 05/11/24 15:38 latex Allergy Unknown Verified 05/11/24 15:38 Vital Signs Vital Signs - 24 hr 05/11/24 15:46 05/11/24 16:04 05/11/24 16:23 Temperature 36.7 C Pulse Rate 79 76 74 Respiratory Rate 29 H 32 H 26 H Blood Pressure 74/56 L 93/45 L 89/52 L Pulse Oximetry 87 L 95 96 Oxygen Delivery Nasal Cannula Nasal Cannula Oxygen Flow Rate 6.0 6 Fraction of Inspired Oxygen 05/11/24 16:42 05/11/24 16:48 05/11/24 17:05 Temperature Pulse Rate 74 79 74 Respiratory Rate 29 H 28 H 29 H Blood Pressure 92/47 L 87/55 L 89/47 L Pulse Oximetry 93 91 94 Oxygen Delivery Oxygen Flow Rate Fraction of Inspired Oxygen 05/11/24 17:24 05/11/24 18:01 05/11/24 18:05 Temperature 36.6 C Pulse Rate 75 76 Respiratory Rate 28 H 18 Blood Pressure 92/45 L 85/48 L 82/51 L Pulse Oximetry 93 94 Oxygen Delivery Oxygen Flow Rate Fraction of Inspired Oxygen 05/11/24 17:15 05/11/24 17:20 05/11/24 18:50 Temperature 36.8 C Pulse Rate 73 Respiratory Rate 26 H Blood Pressure 84/52 L Pulse Oximetry 97 94 96 Oxygen Delivery Non-Rebreather Mask High Flow Therapy with Na Oxygen Flow Rate 15 35 Fraction of Inspired Oxygen 75 05/11/24 20:23 05/11/24 20:00 05/11/24 20:00 Temperature 36.8 C Pulse Rate 74 76 76 Respiratory Rate 22 H 30 H Blood Pressure 110/40 L Pulse Oximetry 93 93 Oxygen Delivery High Flow Therapy with Na Oxygen Flow Rate 45 Fraction of Inspired Oxygen 98 05/11/24 20:30 05/11/24 22:00 05/11/24 22:00 Temperature Pulse Rate 74 76 74 Respiratory Rate 26 H Blood Pressure 83/45 L 100/43 L Pulse Oximetry 93 Oxygen Delivery Oxygen Flow Rate Fraction of Inspired Oxygen 05/11/24 22:00 05/11/24 22:15 05/11/24 22:15 Temperature Pulse Rate 76 76 71 Respiratory Rate 28 H Blood Pressure 100/43 L 96/57 L Pulse Oximetry 92 Oxygen Delivery High Flow Therapy with Na Oxygen Flow Rate 45 Fraction of Inspired Oxygen 98 05/11/24 22:37 05/11/24 22:45 05/11/24 23:41 Temperature Pulse Rate 75 78 71 Respiratory Rate 28 H Blood Pressure 99/52 L 114/56 L Pulse Oximetry 91 Oxygen Delivery High Flow Therapy with Na Oxygen Flow Rate 45 Fraction of Inspired Oxygen 98 05/11/24 23:42 05/12/24 00:00 05/12/24 01:00 Temperature 36.9 C 36.6 C Pulse Rate 71 67 71 Respiratory Rate 24 H 22 H Blood Pressure 96/57 L 114/58 L Pulse Oximetry 94 96 Oxygen Delivery Oxygen Flow Rate Fraction of Inspired Oxygen 05/12/24 01:06 05/12/24 01:31 05/12/24 01:30 Temperature Pulse Rate 71 64 61 Respiratory Rate 21 H Blood Pressure 114/58 L 96/46 L 96/46 L Pulse Oximetry 94 Oxygen Delivery Oxygen Flow Rate Fraction of Inspired Oxygen 05/12/24 01:45 05/12/24 02:00 05/12/24 02:00 Temperature 36.3 C L Pulse Rate 66 61 62 Respiratory Rate 23 H 22 H Blood Pressure 111/54 L 103/58 L Pulse Oximetry 95 95 Oxygen Delivery Oxygen Flow Rate Fraction of Inspired Oxygen 05/12/24 02:14 05/12/24 02:19 05/12/24 02:23 Temperature Pulse Rate 68 70 69 Respiratory Rate 28 H 23 H Blood Pressure Pulse Oximetry 95 Oxygen Delivery High Flow Therapy with Na Oxygen Flow Rate 45 Fraction of Inspired Oxygen 98 05/12/24 02:41 05/12/24 03:00 05/12/24 03:03 Temperature 36.3 C L Pulse Rate 71 70 72 Respiratory Rate 32 H 22 H Blood Pressure 93/41 L 93/41 L Pulse Oximetry 91 89 L Oxygen Delivery High Flow Therapy with Na Oxygen Flow Rate 40 Fraction of Inspired Oxygen 90 05/12/24 03:59 05/12/24 03:59 05/12/24 04:00 Temperature 36.2 C L Pulse Rate 74 73 72 Respiratory Rate 23 H 23 H Blood Pressure 121/53 L Pulse Oximetry 89 L 89 L Oxygen Delivery High Flow Therapy with Na Oxygen Flow Rate 45 Fraction of Inspired Oxygen 98 05/12/24 04:03 05/12/24 04:48 05/12/24 05:15 Temperature Pulse Rate 72 76 78 Respiratory Rate Blood Pressure 121/53 L 135/61 124/63 Pulse Oximetry Oxygen Delivery Oxygen Flow Rate Fraction of Inspired Oxygen 05/12/24 05:45 05/12/24 06:00 05/12/24 06:00 Temperature 36.5 C Pulse Rate 75 70 72 Respiratory Rate 24 H Blood Pressure 130/62 116/55 L Pulse Oximetry 93 Oxygen Delivery Oxygen Flow Rate Fraction of Inspired Oxygen 05/12/24 06:00 05/12/24 06:32 05/12/24 06:48 Temperature Pulse Rate 72 73 74 Respiratory Rate 25 H Blood Pressure 115/55 L 123/57 L 120/57 L Pulse Oximetry 94 Oxygen Delivery Oxygen Flow Rate Fraction of Inspired Oxygen 05/12/24 07:50 05/12/24 07:50 05/12/24 08:06 Temperature Pulse Rate 75 74 Respiratory Rate 24 H 24 H Blood Pressure Pulse Oximetry 95 Oxygen Delivery High Flow Therapy with Na Oxygen Flow Rate 45 Fraction of Inspired Oxygen 98 05/12/24 08:00 05/12/24 08:45 05/12/24 09:18 Temperature 36.6 C Pulse Rate 75 70 73 Respiratory Rate 24 H 28 H Blood Pressure 120/57 L Pulse Oximetry 94 96 97 Oxygen Delivery BiPAP BiPAP Oxygen Flow Rate Fraction of Inspired Oxygen 05/12/24 08:00 05/12/24 08:00 05/12/24 10:00 Temperature 36.7 C Pulse Rate 74 74 73 Respiratory Rate 23 H 21 H Blood Pressure 113/57 L Pulse Oximetry 94 100 Oxygen Delivery High Flow Therapy with Na Oxygen Flow Rate 45 Fraction of Inspired Oxygen 98 05/12/24 10:00 Temperature Pulse Rate 73 Respiratory Rate Blood Pressure Pulse Oximetry Oxygen Delivery Oxygen Flow Rate Fraction of Inspired Oxygen Exam Narrative: General: Pt is alert awake and in no significant distress Lungs/Chest: Trachea central bilateral coarse breathing with crackles but no wheezing Cardiac: RRR. Normal S1 S2. No murmurs Circulation: Pedal pulses are intact and symmetrical. Abdomen: Normal bowel sounds. Soft. NT. ND. Extremities: No clubbing, cyanosis or edema. Warm : Garcia in place Neurologic: Follows commands. Moves all 4 extremities PERRL AO x3 Skin: No Rash Results Labs 05/12/24 04:35 05/12/24 04:35 Labs: Short CBC 05/11/24 05/12/24 Range/Units 15:55 04:35 WBC 21.8 H 20.3 H (4.5-10.0) K/mm3 Hgb 12.2 L 11.2 L (14.0-18.0) g/dL Hct 35.5 L 32.7 L (42.0-52.0) % Plt Count 231 241 (150-375) k/mm3 BMP 05/11/24 05/11/24 05/11/24 15:55 15:55 15:55 Sodium Cancelled 131 L Potassium Cancelled 3.7 Chloride Cancelled Carbon Dioxide BUN Creatinine Glucose Calcium 05/11/24 05/11/24 05/11/24 15:55 15:55 15:55 Sodium Potassium Chloride 95 L Carbon Dioxide Cancelled 22 BUN Cancelled 56 H D Creatinine Cancelled Glucose Calcium 05/11/24 05/11/24 05/11/24 15:55 15:55 15:55 Sodium Potassium Chloride Carbon Dioxide BUN Creatinine 4.40 H Glucose Cancelled 163 H Calcium Cancelled 8.6 05/11/24 05/12/24 20:24 04:35 Sodium 131 L 133 L Potassium 3.8 3.8 Chloride 98 99 Carbon Dioxide 24 22 BUN 59 H 64 H Creatinine 4.40 H 4.60 H Glucose 178 H 200 H Calcium 7.7 L 7.4 L Cardiac Enzymes 05/11/24 05/11/24 05/11/24 Range/Units 15:55 20:46 23:22 Total Creatine Kinase 471 H (55-170) U/L Troponin I 0.102 H* 0.080 H* D (0.000-0.034) ng/mL Liver Function 05/11/24 05/11/24 05/11/24 Range/Units 15:55 15:55 15:55 Total Bilirubin Cancelled 1.1 AST Cancelled 46 ALT Cancelled Alkaline Phosphatase Albumin 05/11/24 05/11/24 05/11/24 Range/Units 15:55 15:55 15:55 Total Bilirubin AST ALT 21 Alkaline Phosphatase Cancelled 90 Albumin Cancelled 3.6 05/12/24 Range/Units 04:35 Total Bilirubin 0.6 AST 35 ALT 15 Alkaline Phosphatase 88 Albumin 3.1 L Urine 05/12/24 Range/Units 01:13 Urine Color Dark yellow (Yellow) Urine Appearance Turbid H (Clear) Urine pH 5.0 (5.0-9.0) Ur Specific Dille 1.025 (1.001-1.035) Urine Protein 3+ H (Negative) mg/dL Urine Glucose (UA) 1+ H (Negative) mg/dL Hospitalist MIPS Advance Care Plan I have confirmed that the patient's Advanced Care Plan is present, code status is documented, or surrogate decision maker is listed in patient medical record.: Yes Medication Reconciliation I have utilized all available resources to obtain, update and review the patients current medications (includes all prescriptions, OTC, herbals, cannabis , and nutritional supplements).: Yes
[2024-05-12] MEDS: NOREPINEPHRINE 8 MG/D5W 250 ML 8 MG/250 ML BAG 5.63 MG IV CONT (11:16)
[2024-05-12] MEDS: LACTATED RINGERS 1,000 ML 100 ML IV CONT (11:16)
[2024-05-12] MEDS: MAGNESIUM SULF 2 GM/WATER 50ML 2 GM/50 ML BAG IVPB (11:19)
[2024-05-12 11:30] LABS: Glucose Point of Care 143 mg/dl (65-105)
--- NOTE | 2024-05-12 12:38 | P.CONNP_ITS ---
Assessment and Plan Assessment and plan (1) Acute kidney injury: Code(s): N17.9 - Acute kidney failure, unspecified Status: Acute Assessment and Plan: * as noted on admission with a creatinine of 4.4mg/dl * unfortunately, only recent labs to compare to are from 2019 (see #2) * evaluation to date noted: * admission CT scan without obstruction * urine electrolytes prerenal * urine eosinophils negative * UA with blood and moderate proteinuria - possible infection(?) * CPK mildly elevated (probably not enough to affect kidney function) * suspect insult due several issues: * hemodyanic instability/shock * sepsis/infection * prerenal factors * 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 (3) Septic shock: Code(s): A41.9 - Sepsis, unspecified organism; R65.21 - Severe sepsis with septic shock Status: Acute Assessment and Plan: * thought to be secondary to pneumonia and possibly UTI * s/p aggressive IVF resuscitation * on vasopressor therapy to maintain MAP * follow culture data * empiric antibiotic therapy * follow trend of hemodynamics (4) Acute respiratory failure: Code(s): J96.00 - Acute respiratory failure, unspecified whether with hypoxia or hypercapnia Status: Acute Assessment and Plan: * due to severe/significant pneumonia as noted by admission imaging * no respiratory distress but noted profound hypoxia * complicated by known history of COPD * using BiPAP and high-flow oxygen mask to maintain oxygen saturations * at risk for intubation and mechanical ventialtion * continue bronchodilators, steroids, and antibitoic therapy * check Echo to r/o CHF * follow respiratory status (5) Multifocal pneumonia: Code(s): J18.9 - Pneumonia, unspecified organism Status: Acute Assessment and Plan: * as noted by admission imaging * continue respiratory support * follow cultures * on antibiotics (6) Anemia: Qualifiers: Anemia type: unspecified type Qualified Code(s): D64.9 - Anemia, unspecified Code(s): D64.9 - Anemia, unspecified Status: Acute Assessment and Plan: * due to LEIA, CKD, and acute illness * follow trend of H/H (7) Chronic obstructive pulmonary disease: Qualifiers: COPD type: emphysema Emphysema type: unspecified Qualified Code(s): J43.9 - Emphysema, unspecified Code(s): J44.9 - Chronic obstructive pulmonary disease, unspecified Status: Chronic Assessment and Plan: * known history * see #3 (8) Type 2 diabetes mellitus: Code(s): E11.9 - Type 2 diabetes mellitus without complications Status: Acute Assessment and Plan: * follow accu-cheks * glycemic control per food service representative/hospitalists Long extensive discussion ( greater than 20 minutes) with the patient regarding his significant renal dysfunction/renal failure and my concern that if it continues to progress or worsen, or if he runs into issues with hyperkalemia, metabolic acidosis, volume overload, or uremia, he may require renal replacement therapy/dialysis. The patient seemed to voice understanding and is hopeful that his kidneys will improve with ongoing supportive therapy which has already been instituted. I will continue to follow the patient with you while he remains hospitalized and make further recommendations as deemed necessary. Thank you for allowing me to participate in the care of this patient. History of Present Illness Reason for Consult Consult date: 05/12/24 Reason for consult: acute renal failure (on chronic kidney disease) Chief Complaint Chief complaint: Septic Shock History of Present Illness Narrative: The patient is a 74-year-old male with extensive past medical history as outlined below who presented to [facility] Emergency Room with weakness and syncope. Apparently, about 2-3 days ago, the patient started feeling weak. This was associated with a productive cough of clear sputum but no overt fevers or chills. However, he did note that his shoe breathing was somewhat worse on top of his baseline shortness of breath. Further complicating matters is had issues and problems with dizziness and lightheadedness resulting in a couple of episodes of 6 syncope with associated loss of consciousness. He denies any chest pain, palpitations, or vertigo prior to or after the syncopal episodes. He denies any head trauma or injury following the syncopal episode. On further questioning, he also reports his oral intake has been somewhat poor although he denies any complaints of nausea, vomiting, abdominal pain, diarrhea, dysuria, hematuria, hematochezia, or melena. It was difficult to get a full and complete history with regard to the episodes of syncope as he is currently on full face BiPAP therapy making getting a complete history somewhat difficult. In any case, given these multitude of issues and complaints, he presented to the emergency room for further assessment. Workup and evaluation emergency room demonstrated the patient to be quite hypotensive with a systolic BP in the 70s with noted hypoxia of 87% on room air although he was afebrile. Routine blood tests were significant for leukocytosis with a white blood cell count 21.8 with an associated left shift of 70% bands and a marked decline in his kidney function with a BUN of 56 and a creatinine of 4.4 in association with lactic acidosis of 5.5. His proBNP was elevated 14,000 and his troponins were mildly elevated as well. Viral testing for influenza/ RSV/ COVID were negative as well. Subsequent imaging included a CT scan of his chest/ abdomen / pelvis which demonstrated extensive right upper lobe, middle lobe, and left lower lobe consolidating pneumonia. He received aggressive IV fluid resuscitation in the emergency room given his hypotension and renal failure but given his elevated proBNP, this was limited to 1.5 L. his blood pressure did not really improve with the fluid resuscitation so a central line was placed and he was started on vasopressor therapy. After appropriate cultures were obtained he was instituted on broad-spectrum IV antibiotic therapy given the concerns of sepsis and pneumonia and he was subsequently admitted to the ICU for further evaluation and therapy. Since his admission to the ICU, his oxygen saturations appear to be doing somewhat better on high-flow oxygen therapy as well as BiPAP support. He remains on low-dose vasopressor therapy to maintain his mean arterial pressure and despite his significant / severe hypoxia, he does not appear to be in any acute respiratory distress. Renal consultation was requested due to his acute kidney injury/acute renal ashlyn lure on top of his presumed chronic kidney disease. Unfortunately, the only labs I have to compare to our from 2019 where his creatinine was 1.4 mg/dL with an associated GFR 51 cc/minute. He does have extensive risk factors for chronic kidney disease in the form of hypertension, diabetes severe/significant peripheral arterial/vascular disease, COPD, obstructive sleep apnea, and age- related change. he does not recall ever being told that he had any issues or problems with his kidneys but he freely admits that he has not seen a physician in a number of years. In spite of his significant renal dysfunction and diminished urine output, he does not appear to be overtly volume overloaded although fluid resuscitation has been streamlined given his elevated proBNP and the concerns of possible fluid overload with ongoing therapy. Currently, at the time my evaluation, he remains on BiPAP therapy with stable oxygenation and in no apparent distress. Review of Systems Review of Systems: As per HPI. [facility] Past Medical History Medical History Arthritis Carotid stenosis Chronic obstructive pulmonary disease Gout Hyperlipidemia Hypertension Hypothyroidism Obstructive sleep apnea Peripheral vascular disease Tobacco dependence Type 2 diabetes mellitus Surgical History Surgical History History of cardiac catheterization History of carotid endarterectomy History of cholecystectomy History of revascularization procedure of lower extremity Family History Family History Father Hypertension Cerebrovascular accident Grandparent Family history of malignant neoplasm Diabetes mellitus Sibling Family history of diabetes mellitus in first degree relative Diabetes mellitus Mother Hyperlipidemia Social History Social History Social History: Surrogate medical decision maker: Brooks Morrissey, son ([phone]) and Kira Morrissey, spouse ([phone]). Code status: Full code. Smoking packs per day: 1 Smoking cigarettes per day: 20.0 Years smoked: 30 Smoking pack-years: 30.00 Smoking status: Current every day smoker Tobacco type: cigarettes Second hand tobacco smoke exposure: Yes Alcohol intake: never Substance use: current Substance use type: marijuana Other substance usage details: smoking and edibles Do You Feel Safe in your Home?: Yes Lack of Transportation: No Lack of Food: Never True Current Housing: I Have Housing Concerned About Future Housing: No Difficulty Paying Gas/Electric Bills: No Difficulty Paying for Meds: No Currently Unemployed: No Education: High School Diploma/GED Difficulty w/ Childcare or Family Care: No Living arrangements: with family Occupation/Education: retired Spiritual care concerns: No Meds Home Medications and Allergies Home Medications Medication Instructions Recorded Confirmed Type albuterol sulfate 2.5 mg/3 mL 2.5 mg (3 mL) inhalation Q4-6H PRN 11/11/22 05/11/24 Rx (0.083 %) solution for nebulization shortness of breath or wheezing #75 mL albuterol sulfate 90 mcg/actuation 1 inh inhalation QID PRN 02/02/23 05/11/24 History aerosol inhaler (ProAir HFA) SOB/Wheezing aspirin 81 mg tablet,delayed 81 mg PO DAILY 02/02/23 05/11/24 History release (Adult Low Dose Aspirin) duloxetine 60 mg capsule,delayed 60 mg PO DAILY #90 caps 01/03/24 05/11/24 Rx release empagliflozin 12.5 mg-metformin 1 tablet PO BID #180 tabs 01/03/24 05/11/24 Rx 1,000 mg tablet (Synjardy) hydrochlorothiazide 25 mg tablet 25 mg PO DAILY #90 tabs 01/03/24 05/11/24 Rx levothyroxine 75 mcg tablet 75 mcg PO DAILY #90 tabs 01/03/24 05/11/24 Rx rosuvastatin 40 mg tablet 40 mg PO DAILY #90 tabs 01/03/24 05/11/24 Rx budesonide 160 mcg-glycopyr 9 2 inh inhalation BID #10.7 grams 05/05/24 05/11/24 Rx mcg-formot 4.8 mcg/actuation HFA inhaler (Breztri Aerosphere) sildenafil 100 mg tablet 100 mg PO DAILY PRN sexual 05/05/24 05/11/24 Rx activity #30 tabs amlodipine 10 mg tablet 10 mg PO DAILY 05/11/24 05/11/24 History carvedilol 12.5 mg tablet 12.5 mg PO DAILY 05/11/24 05/11/24 History clopidogrel 75 mg tablet 75 mg PO DAILY 05/11/24 05/11/24 History Allergies Allergy/AdvReac Type Severity Reaction Status Date / Time penicillin G Allergy Mild Unknown Verified 05/14/24 08:24 codeine Allergy Unknown Unknown Verified 05/11/24 15:38 Penicillins Allergy Unknown Unknown Verified 05/14/24 08:24 latex Allergy Unknown Verified 05/11/24 15:38 Vital Signs Vital Signs Temp Pulse Resp BP Pulse Ox O2 Del Method O2 Flow Rate 05/12/24 12:00 63 26 H 101/48 93 BiPAP 05/12/24 12:00 63 05/12/24 12:00 97.9 F 68 23 H 97/50 L 93 05/12/24 11:16 71 109/51 L 05/12/24 10:00 92 BiPAP 05/12/24 11:00 69 96/57 L 05/12/24 10:15 72 103/55 L 05/12/24 09:15 75 115/53 L 05/12/24 08:45 73 115/59 L 05/12/24 09:00 74 123/57 L 05/12/24 08:20 75 116/63 05/12/24 08:00 75 120/57 L 05/12/24 07:30 70 100/61 05/12/24 10:00 73 05/12/24 10:00 98.0 F 73 21 H 113/57 L 100 05/12/24 08:00 74 23 H 94 High Flow Therapy with Na 45 05/12/24 08:00 74 05/12/24 09:18 73 97 BiPAP 05/12/24 08:45 70 28 H 96 BiPAP 05/12/24 08:00 97.8 F 75 24 H 120/57 L 94 05/12/24 08:06 74 24 H 05/12/24 07:50 75 24 H 05/12/24 07:50 95 High Flow Therapy with Na 45 05/12/24 06:48 74 25 H 120/57 L 94 05/12/24 06:32 73 123/57 L 05/12/24 06:00 72 115/55 L 05/12/24 06:00 97.7 F 72 24 H 116/55 L 93 05/12/24 06:00 70 05/12/24 05:45 75 130/62 05/12/24 05:15 78 124/63 05/12/24 04:48 76 135/61 05/12/24 04:03 72 121/53 L 05/12/24 04:00 97.2 F L 72 23 H 121/53 L 89 L 05/12/24 03:59 73 05/12/24 03:59 74 23 H 89 L High Flow Therapy with Na 45 05/12/24 03:03 72 93/41 L 05/12/24 03:00 97.3 F L 70 22 H 93/41 L 89 L 05/12/24 02:41 71 32 H 91 High Flow Therapy with Na 40 05/12/24 02:23 69 23 H 05/12/24 02:19 70 95 High Flow Therapy with Na 45 05/12/24 02:14 68 28 H 05/12/24 02:00 97.4 F L 62 22 H 103/58 L 95 05/12/24 02:00 61 05/12/24 01:45 66 23 H 111/54 L 95 05/12/24 01:30 61 96/46 L 05/12/24 01:31 64 21 H 96/46 L 94 05/12/24 01:06 71 114/58 L 05/12/24 01:00 97.8 F 71 22 H 114/58 L 96 05/12/24 00:00 98.4 F 67 24 H 96/57 L 94 05/11/24 23:42 71 05/11/24 23:41 71 28 H 91 High Flow Therapy with Na 45 05/11/24 22:45 78 114/56 L 05/11/24 22:37 75 99/52 L 05/11/24 22:15 71 96/57 L 05/11/24 22:15 76 28 H 92 High Flow Therapy with Na 45 05/11/24 22:00 76 100/43 L 05/11/24 22:00 74 26 H 100/43 L 93 05/11/24 22:00 76 05/11/24 20:30 74 83/45 L 05/11/24 20:00 76 05/11/24 20:00 76 30 H 93 High Flow Therapy with Na 45 05/11/24 20:23 98.3 F 74 22 H 110/40 L 93 05/11/24 18:50 98.3 F 73 26 H 84/52 L 96 Exam Narrative: GENERAL APPEARANCE: elderly but well developed well nourished male in no acute distress; BiPAP in place HEENT: normocephalic, atraumatic, normal conjunctiva and sclera, nares patient NECK: no lymphadenopathy, thyromegaly, or JVD MOUTH: normal lips, teeth, and gums CARDIOVASCULAR: RRR, normal S1 and S2, no rub RESPIRATORY: coarse breath sounds with some scattered crackles ABDOMEN: soft, nontender, nondistended, positive bowel sounds present EXTREMITIES: no evidence of cyanosis, clubbing, or edema NEUROLOGICAL: alert and oriented x 3; CN II - XII intact bilaterally; no focal deficits noted Results Lab Results 05/15/24 04:04 05/15/24 04:04 Lab results: Most recent lab results ABG pH 7.381 (7.350-7.450) 05/12/24 05:18 ABG pCO2 29.7 mmHg (35.0-45.0) L 05/12/24 05:18 ABG pO2 57.6 mmHg (80.0-100.0) L 05/12/24 05:18 ABG HCO3 17.2 mEq/l (22.0-26.0) L 05/12/24 05:18 ABG O2 Saturation 90.0 % (95.0-100.0) L 05/12/24 05:18 Calcium 7.4 mg/dL (8.4-10.2) L 05/12/24 04:35 Magnesium 1.6 mg/dL (1.6-2.3) 05/12/24 04:35 Urine Creatinine 374.6 mg/dL 05/12/24 01:13 Urine Creatinine 382.4 mg/dL 05/12/24 01:13
--- NOTE | 2024-05-12 15:52 | IVDEFINITY ---
Prior to administration of IV Definity the patient was educated on the risks and benefits of the imaging enhancing agent including potential adverse side effects. The patient verbalized understanding. Allergies were verified. No exclusion criteria were identified and at least one of the following inclusion criteria were met: 1) physician request, 2) patient technically difficult to image (per the [place] [employer] guidelines of two or more segments not discernable within the apical view), or 3) questionable left ventricular function. ?
[2024-05-12 16:12] LABS: Glucose Point of Care 182 mg/dl (65-105)
[2024-05-12 20:21] LABS: Glucose Point of Care 162 mg/dl (65-105)
[2024-05-12] MEDS: DOXYCYCLINE 100 MG/NS 100 ML 100 MG/100 ML BAG IVPB (20:57)
[2024-05-12 21:14] LABS: Vancomycin Trough 10.8 ug/mL (10.0-20.0)
--- NOTE | 2024-05-12 22:22 | ECHO_ITS ---
Patient Info Name: Eladio Morrissey Age: 74 years : 1950 Gender: Male Ht: 67 in Wt: 173 lbs BSA: 1.94 m2 HR: 74 bpm BP: 120 / 57 mmHg Technical Quality: Poor Exam Date: 05/12/2024 8:51 AM Exam Location: Echo Lab Patient Status: Inpatient Admit Date: 05/11/2024 Staff Ordering Physician: Babs Arriaza PA-C Instrument Tester: Maria Eugenia Greer RDCS Attending Provider: Martín Phillips MD Referring Physician: Sofiya LOVE; Exam Type: CA echo dop color flow w con Study Info Indications - NONSTEMI/SYNCOPE Complete two-dimensional, color flow and Doppler transthoracic echocardiogram is performed with contrast to opacify the left ventricle and to improve the deliniation of the left ventricle endocardial borders. Contrast/Agitated Saline Contrast/Ag. Saline: Definity Amount: 2.00 ml Existing IV Access: Yes Reason for Poor Study: poor echocardiographic windows Summary 1. Technically suboptimal study due to poor sonographic images. 2. Definity contrast administered improved wall motion interpretation. 3. Left ventricular chamber dimension is mildly enlarged. 4. Left ventricular systolic function is moderately globally reduced, estimated at 35-40%. 5. There is mild concentric increased left ventricular wall thickness. 6. The left ventricular diastolic function is grade I diastolic dysfunction. 7. Left atrial chamber dimension is mildly enlarged. 8. There is mild aortic valve sclerosis. 9. There is trace mitral valve regurgitation. Left Ventricle Technically suboptimal study due to poor sonographic images. Definity contrast administered improved wall motion interpretation. Tissue doppler E/e' was not assessed. Left ventricular chamber dimension is mildly enlarged. Left ventricular systolic function is moderately globally reduced, estimated at 35-40%. There is mild concentric increased left ventricular wall thickness. The left ventricular diastolic function is grade I diastolic dysfunction. Right Ventricle Right ventricular systolic function is normal and with normal TAPSE 2.1 cm. Right ventricular chamber dimension is normal. Left Atria Left atrial chamber dimension is mildly enlarged. Right Atria Right atrial chamber dimension is normal. Aortic Valve The aortic valve is trileaflet. There is mild aortic valve sclerosis. There is no aortic valve stenosis. There is no aortic valve regurgitation. Pulmonic Valve There is no pulmonic regurgitation. Mitral Valve There is no mitral valve stenosis. There is trace mitral valve regurgitation. Tricuspid Valve There is no tricuspid valve regurgitation. Pericardium/Pleural There is no pericardial effusion. Inferior Vena Cava Normal inferior vena cava with >50% collapse upon inspiration consistent with normal right atrial pressure, 5 mmHg. Aorta The aortic root size at the sinus of Valsalva is normal. Left Ventricular Outflow Tract Name Value Normal LVOT 2D LVOT Diameter 1.79 cm LVOT Doppler LVOT Peak Gradient 3 mmHg LVOT Mean Gradient 2 mmHg LVOT VTI 24.76 cm LVOT VTI/AV VTI Ratio 0.65 LVOT Stroke Volume 62.61 ml LVOT CO 3.03 l/min LVOT CI 1.56 L/min/m2 Pulmonic Valve Name Value Normal RVOT Doppler RVOT Peak Gradient 3 mmHg PV Doppler PV Peak Gradient 3 mmHg Mitral Valve Name Value Normal MV Doppler MV Decel [place] 314.39 cm/s2 MV PHT 0 s MV Area (PHT) 3.45 cm2 4.00-5.00 MV Diastolic Function MV E Peak Velocity 69.20 cm/s MV A Peak Velocity 102.54 cm/s MV E/A 0.67 MV Decel Time 0 s Tricuspid Valve Name Value Normal Estimated PAP/RSVP RA Pressure 5 mmHg <=5 Aorta Name Value Normal Ascending Aorta Ao Root Diameter (MM) 3.52 cm Ao Root Diam Index (MM) 1.81 cm/m2 Aortic Valve Name Value Normal AV Doppler AV Peak Velocity 196.19 cm/s AV Peak Gradient 9 mmHg AV Mean Gradient 6 mmHg AV VTI 38.00 cm AV Area (Cont Eq VTI) 1.65 cm2 >=3.00 AV Area (Cont Eq Syed) 1.51 cm2 AV Regurgitation 2D LVOT Area 2.53 cm2 Ventricles Name Value Normal LV Dimensions 2D/MM IVS Diastolic Thickness (2D) 1.09 cm 0.60-1.00 LVID Diastole (2D) 4.56 cm 4.20-5.80 LVIW Diastolic Thickness (2D) 1.84 cm 0.60-1.00 LVID Systole (2D) 3.44 cm 2.50-4.00 LVOT Diameter 1.79 cm LV Mass (2D Cubed) 270.23 g 88.00-224.00 LV Mass Index (2D Cubed) 0.01 g/cm2 0.00-0.01 Relative Wall Thickness (2D) 0.81 LV Fractional Shortening/Ejection Fraction 2D/MM LV Fractional Shortening (2D) 25 % 25-43 LV EF (2D Teicholz) 49 % 52-72 LV Diastolic Volume (4C MOD) 120.69 ml LV EF (4C MOD) 47 % LV Diastolic Volume (2C MOD) 102.70 ml LV EF (2C MOD) 35 % LV Diastolic Volume (BP MOD) 112.21 ml 62.00-150.00 LV Diastolic Volume Index (BP MOD) 0.06 l/m2 0.03-0.07 LV Systolic Volume (BP MOD) 67.40 ml 21.00-61.00 LV Systolic Volume Index (BP MOD) 0.03 l/m2 0.01-0.03 LV EF (BP MOD) 40 % 52-72 LV Diastolic Length (4C) 8.25 cm LV Systolic Length (4C) 7.56 cm LV Stroke Volume (4C MOD) 56.15 ml Atria Name Value Normal LA Dimensions LA Dimension (MM) 2.73 cm 3.00-4.10 LA Volume (4C A-L) 61.38 ml LA Volume (BP A-L) 67.46 ml RA Dimensions RA Area (4C) 12.77 cm2 <=18.00 Report Signatures
[2024-05-12] MEDS: VANCOMYCIN 1,250 MG/NS 250 ML 1,250 MG/250 ML BAG 166.67 MG IVPB (22:50)
[2024-05-13] VITALS (25 sets, daily range): BP systolic 104–131; BP diastolic 45–83; PULSE 59–84; RESP 18–30; TEMP 36.1–36.6; O2SAT 91–98
[2024-05-13 00:17] LABS: Glucose Point of Care 164 mg/dl (65-105)
[2024-05-13] MEDS: HYDROCORTISONE SODIUM SUCCINATE 100 MG/2 ML VIAL 50 MG IV PUSH ×5 (00:36→23:31)
[2024-05-13] MEDS: IPRATROPIUM 0.5 MG/ALBUTEROL SULFATE 2.5 MG AMPUL.NEB 3 ML INHALATION ×4 (02:19→20:32)
--- NOTE | 2024-05-13 02:35 | PC.NURSE ---
pt used call matos. when rn entered room pt stated I pulled on something. Central line pulled out and pt sitting in blood. direct pressure applied to groin until bleeding stopped. Pt apologized. Alert to self and place cooperative. pt given complete bath
[2024-05-13 02:36] LABS: Basophils Percent Auto 0.2 % (0.2-1.2); Eosinophils Absolute Auto 0.1 K/mm3 (0-0.3); Eosinophils Percent Auto 0.5 % (0-4.4); Hemoglobin 10.3 g/dL (14.0-18.0); Immature Granulocyte Absolute 0.06 K/mm3 (0.00-0.031); Immature Granulocyte Percent A 0.3 % (0-0.5); Lymphocytes Absolute Auto 0.54 K/mm3 (0.9-3.2); Lymphocytes Percent Auto 2.9 % (18.3-44.2); Mean Corpuscular HGB Conc 34.3 g/dl (32-36); Mean Corpuscular Volume 84.5 fl (80-100); Mean Platelet Volume 9.9 fl (7.4-10.4); Monocytes Absolute Auto 0.6 K/mm3 (0.1-0.6); Monocytes Percent Auto 3.2 % (2.6-8.5); Neutrophils Absolute Auto 17.6 K/mm3 (1.3-6.7); Neutrophils Percent Auto 92.9 % (45.5-73.1); Platelet Count Result 240 k/mm3 (150-375); Red Blood Count 3.55 M/mm3 (4.6-6.20); Red Cell Distribution Width 13.9 % (11.5-14.5); White Blood Count 18.9 K/mm3 (4.5-10.0)
[2024-05-13 02:48] LABS: Estimated CRCL calculation 12 ml/min; Estimated Glomerular Filt Rate 12
[2024-05-13 02:53] LABS: Alanine Aminotransferase 20 U/L (6-50); Alkaline Phosphatase 80 U/L (38-126); Anion Gap 12 mmol/L (4-12); Aspartate Amino Transferase 38 U/L (17-59); Bilirubin,Total 0.5 mg/dL (0.2-1.3); Blood Urea Nitrogen 82 mg/dL (9-20); Calcium 7.2 mg/dL (8.4-10.2); Carbon Dioxide 16 mmol/L (22-30); Chloride 105 mmol/L (98-107); Estimated CRCL calculation 12 ml/min; Estimated Glomerular Filt Rate 12; Glucose 153 mg/dL (65-110); Magnesium 2.4 mg/dL (1.6-2.3); Potassium 3.8 mmol/L (3.4-5.0); Sodium 133 mmol/L (137-145)
[2024-05-13 02:58] LABS: Anisocytosis 1+; Ovalocytes 1+; Platelet Estimate Adequate (Adequate)
[2024-05-13 02:59] LABS: Burr Cells 1+; Schistocytes Rare
[2024-05-13 03:03] LABS: Troponin I 0.058 ng/mL (0.000-0.034)
[2024-05-13 04:48] LABS: Glucose Point of Care 161 mg/dl (65-105)
[2024-05-13] MEDS: LACTATED RINGERS 1,000 ML 100 ML IV CONT (05:06)
[2024-05-13 05:09] LABS: Base Excess ABG -7.4 mEq/l (+/-2.0); Fractional Inspired Oxygen 60 %; HCO3 ABG 16.5 mEq/l (22.0-26.0); Methemoglobin ABG 0.3 %THb (0-1.5); Oxygen Content ABG 13.5 %vol (16.0-22.0); Oxygen Saturation ABG 94.1 % (95.0-100.0); Oxyhemoglobin 92.9 % THb (90.0-100.0); PCO2 ABG 28.3 mmHg (35.0-45.0); PO2 ABG 69.7 mmHg (80.0-100.0); PO2 FiO2 Ratio Arterial Blood 1.16 %; Reduced Hemoglobin 6.8 %THb (0-5.0); Total Hemoglobin 10.3 g/dL (12.0-18.0); pH ABG 7.384 (7.350-7.450)
[2024-05-13 05:11] LABS: Device BIPAP; Expiratory Pressure 6 cmH2O; Inspiratory Pressure 12 cmH2O; Modified Allen's Test Pass; Site Drawn RIGHT RADIAL
[2024-05-13] MEDS: LEVOTHYROXINE SODIUM 75 MCG TABLET PO (06:16)
[2024-05-13] MEDS: CEFEPIME 1 GM/NS 50 ML 1 GM/50 ML BAG IVPB ×2 (06:16→17:37)
--- NOTE | 2024-05-13 08:01 | PM.PNCARD ---
Progress Note: A&P Assessment and Plan (1) Syncope: Code(s): R55 - Syncope and collapse Status: Acute Assessment and Plan: Probably due to septic shock. (2) Multifocal pneumonia: Code(s): J18.9 - Pneumonia, unspecified organism Status: Acute Assessment and Plan: On antibiotics as per hospitalist. (3) Acute kidney injury: Code(s): N17.9 - Acute kidney failure, unspecified Status: Acute Assessment and Plan: Probably due to septic shock. (4) Tobacco dependence: Code(s): F17.200 - Nicotine dependence, unspecified, uncomplicated Status: Acute Assessment and Plan: Counseled regarding smoking cessation. (5) Hypertension: Code(s): I10 - Essential (primary) hypertension Status: Acute Assessment and Plan: Improved with IVF and on Levophed drip. Wean Levophed drip off as tolerated. Monitor. (6) Elevated troponin: Code(s): R79.89 - Other specified abnormal findings of blood chemistry Status: Acute Assessment and Plan: Troponin peaked at .102 and trending down. Due to septic shock, pneumonia, acute renal failure. Doubt ACS without chest pains, no EKG ST changes. (7) Systolic dysfunction: Code(s): I51.9 - Heart disease, unspecified Status: Acute Assessment and Plan: Appears euvolemic. 05/12/24 Echo: TDS. Mild LVE, EF 35-40%, mild LVH, grade I diastolic dysfunction, mild LAE, trace MR. Will start HF medication such as beta liss when BP stabilizes of vasopressor, and John or ARB or Entresto if kidney function stabilizes. Subjective Date/time seen: 05/13/24 08:01 Interval history: No chest pain or sob. He is hungry. Exam Const: General: cooperative, healthy appearing and comfortable Orientation/consciousness: oriented to person, oriented to place and oriented to time Resp: Auscultation: crackles, no rhonchi, no wheezes and diminished lung sounds Cardio: Rate: regular rate Rhythm: regular rhythm Heart sounds: no murmurs Peripheral pulses: dorsalis pedis present Neuro: General: oriented to person, oriented to place and oriented to time Extrem: Right lower extremity: no edema Left lower extremity: no edema Objective Data Vital Signs Vital Signs: Vital Signs - 24 hr 05/12/24 08:06 05/12/24 08:45 05/12/24 09:18 Temperature Pulse Rate 74 70 73 Respiratory Rate 24 H 28 H Blood Pressure Pulse Oximetry 96 97 Oxygen Delivery BiPAP BiPAP Oxygen Flow Rate Fraction of Inspired Oxygen 05/12/24 10:00 05/12/24 10:00 05/12/24 08:20 Temperature 98.0 F Pulse Rate 73 73 75 Respiratory Rate 21 H Blood Pressure 113/57 L 116/63 Pulse Oximetry 100 Oxygen Delivery Oxygen Flow Rate Fraction of Inspired Oxygen 05/12/24 09:00 05/12/24 08:45 05/12/24 09:15 Temperature Pulse Rate 74 73 75 Respiratory Rate Blood Pressure 123/57 L 115/59 L 115/53 L Pulse Oximetry Oxygen Delivery Oxygen Flow Rate Fraction of Inspired Oxygen 05/12/24 10:15 05/12/24 11:00 05/12/24 10:00 Temperature Pulse Rate 72 69 Respiratory Rate Blood Pressure 103/55 L 96/57 L Pulse Oximetry 92 Oxygen Delivery BiPAP Oxygen Flow Rate Fraction of Inspired Oxygen 05/12/24 11:16 05/12/24 12:00 05/12/24 12:00 Temperature 97.9 F Pulse Rate 71 68 63 Respiratory Rate 23 H Blood Pressure 109/51 L 97/50 L Pulse Oximetry 93 Oxygen Delivery Oxygen Flow Rate Fraction of Inspired Oxygen 05/12/24 12:00 05/12/24 13:01 05/12/24 14:09 Temperature Pulse Rate 63 63 60 Respiratory Rate 26 H 24 H Blood Pressure 101/48 L Pulse Oximetry 93 Oxygen Delivery BiPAP Oxygen Flow Rate Fraction of Inspired Oxygen 60 05/12/24 14:14 05/12/24 14:16 05/12/24 14:00 Temperature Pulse Rate 66 64 56 L Respiratory Rate 24 H 24 H Blood Pressure Pulse Oximetry 94 Oxygen Delivery BiPAP Oxygen Flow Rate Fraction of Inspired Oxygen 05/12/24 14:00 05/12/24 14:00 05/12/24 13:15 Temperature 97 F L Pulse Rate 56 L 56 L 58 L Respiratory Rate 19 Blood Pressure 106/57 L 106/57 L 99/53 L Pulse Oximetry 93 Oxygen Delivery Oxygen Flow Rate Fraction of Inspired Oxygen 05/12/24 15:00 05/12/24 15:00 05/12/24 08:45 Temperature Pulse Rate 63 Respiratory Rate Blood Pressure 124/59 L Pulse Oximetry 95 98 Oxygen Delivery High Flow Therapy with Na BiPAP Oxygen Flow Rate 45 Fraction of Inspired Oxygen 98 100 05/12/24 16:00 05/12/24 16:00 05/12/24 16:00 Temperature 96.6 F L Pulse Rate 68 68 68 Respiratory Rate 19 19 Blood Pressure 104/55 L Pulse Oximetry 98 98 Oxygen Delivery High Flow Therapy with Na Oxygen Flow Rate 45 Fraction of Inspired Oxygen 80 05/12/24 18:00 05/12/24 18:00 05/12/24 15:15 Temperature 97.5 F L Pulse Rate 76 76 63 Respiratory Rate 22 H Blood Pressure 91/67 L 108/57 L Pulse Oximetry 92 Oxygen Delivery Oxygen Flow Rate Fraction of Inspired Oxygen 05/12/24 15:30 05/12/24 16:45 05/12/24 17:00 Temperature Pulse Rate 62 70 71 Respiratory Rate Blood Pressure 104/55 L 103/63 104/62 Pulse Oximetry Oxygen Delivery Oxygen Flow Rate Fraction of Inspired Oxygen 05/12/24 17:15 05/12/24 17:30 05/12/24 18:15 Temperature Pulse Rate 70 64 70 Respiratory Rate Blood Pressure 112/61 105/56 L 96/75 L Pulse Oximetry Oxygen Delivery Oxygen Flow Rate Fraction of Inspired Oxygen 05/12/24 19:36 05/12/24 19:42 05/12/24 20:00 Temperature 97.8 F Pulse Rate 76 76 64 Respiratory Rate 20 27 H Blood Pressure 107/54 L Pulse Oximetry 100 93 Oxygen Delivery High Flow Therapy with Na Oxygen Flow Rate 45 Fraction of Inspired Oxygen 70 05/12/24 20:30 05/12/24 20:30 05/12/24 20:45 Temperature Pulse Rate 67 66 Respiratory Rate 24 H 25 H Blood Pressure Pulse Oximetry 93 92 Oxygen Delivery High Flow Therapy with Na BiPAP Oxygen Flow Rate 45 Fraction of Inspired Oxygen 70 05/12/24 20:45 05/12/24 21:26 05/12/24 22:00 Temperature 97.6 F Pulse Rate 66 66 62 Respiratory Rate 19 25 H Blood Pressure 110/61 Pulse Oximetry 93 Oxygen Delivery Oxygen Flow Rate Fraction of Inspired Oxygen 05/12/24 20:00 05/12/24 22:00 05/12/24 23:10 Temperature Pulse Rate 64 62 72 Respiratory Rate 19 Blood Pressure 110/61 107/54 L Pulse Oximetry 90 Oxygen Delivery BiPAP Oxygen Flow Rate Fraction of Inspired Oxygen 05/13/24 00:00 05/13/24 00:00 05/13/24 00:00 Temperature 96.9 F L Pulse Rate 59 L 69 62 Respiratory Rate 19 19 Blood Pressure 111/73 Pulse Oximetry 91 91 Oxygen Delivery BiPAP Oxygen Flow Rate Fraction of Inspired Oxygen 70 05/13/24 00:37 05/13/24 02:20 05/13/24 02:20 Temperature Pulse Rate 63 63 63 Respiratory Rate 21 H 21 H Blood Pressure 111/73 Pulse Oximetry 92 Oxygen Delivery BiPAP Oxygen Flow Rate Fraction of Inspired Oxygen 05/13/24 02:00 05/13/24 02:00 05/13/24 02:33 Temperature 97.3 F L Pulse Rate 65 65 66 Respiratory Rate 18 28 H Blood Pressure 106/55 L Pulse Oximetry 95 Oxygen Delivery Oxygen Flow Rate Fraction of Inspired Oxygen 05/13/24 04:00 05/13/24 04:00 05/13/24 04:00 Temperature 97.1 F L Pulse Rate 66 66 64 Respiratory Rate 25 H 24 H Blood Pressure 104/63 Pulse Oximetry 92 94 Oxygen Delivery BiPAP Oxygen Flow Rate Fraction of Inspired Oxygen 70 05/13/24 02:00 05/13/24 04:00 05/13/24 05:12 Temperature Pulse Rate 65 64 67 Respiratory Rate 25 H Blood Pressure Pulse Oximetry 94 Oxygen Delivery BiPAP Oxygen Flow Rate Fraction of Inspired Oxygen 05/13/24 06:00 05/13/24 06:00 05/13/24 06:00 Temperature 97.6 F Pulse Rate 65 65 65 Respiratory Rate 25 H 25 H Blood Pressure 106/45 L Pulse Oximetry 92 92 Oxygen Delivery High Flow Therapy with Na Oxygen Flow Rate 45 Fraction of Inspired Oxygen 70 Intake/Output Intake/Output: Intake & Output 05/10/24 05/11/24 05/12/24 05/13/24 23:59 23:59 23:59 23:59 Intake Total 923.7 2383.3 1250 Output Total 120 150 Balance 923.7 2263.3 1100 Meds/Results Medications: Active Medications Generic Name Dose Route Start Last Admin Trade Name Freq PRN Reason Stop Dose Admin Acetaminophen 650 mg 05/11/24 18:35 05/12/24 08:08 Acetaminophen 325 Mg Tablet PO 650 mg Q4H PRN Administration Mild Pain (1-3) or Fever Albuterol/Ipratropium 3 ml 05/12/24 02:00 05/13/24 02:19 Ipratropium 0.5 Mg/Albuterol Sulfate 2.5 Mg Ampul.Neb 3 Ml INHALATION 3 ml Q6HRT SANGEETA Administration Aspirin 81 mg 05/12/24 09:00 05/12/24 08:09 Aspirin 81 Mg Enteric Tablet PO 81 mg DAILY SANGEETA Administration Clopidogrel Bisulfate 75 mg 05/12/24 09:00 05/12/24 08:05 Clopidogrel Bisulfate 75 Mg Tablet PO 75 mg DAILY SANGEETA Administration Dextrose 12.5 gm 05/11/24 22:22 Dextrose 50% 25 Gm/50 Ml Syringe IV PUSH PRN PRN Hypoglycemia Protocol Famotidine 20 mg 05/12/24 09:00 05/12/24 20:57 Famotidine 20 Mg/2 Ml Vial IV PUSH 20 mg Q12HR SANGEETA Administration Fluticasone/Umeclidinium/Vilanterol 1 puff 05/12/24 08:00 05/12/24 07:50 Fluticasone/Umeclidin/Vilanter 100-62.5-25 Mcg Ellipta INHALATION 1 puff DAILYRT SANGEETA Administration Glucagon 1 mg 05/11/24 22:22 Glucagon For Inj 1 Mg Vial IM PRN PRN Hypoglycemia Protocol Glucose 15 gm 05/11/24 22:22 Glucose Oral Gel 15 Gm Of Glucse In 37.5 Gm Tube PO PRN PRN Hypoglycemia Protocol Guaifenesin 1,200 mg 05/12/24 09:00 05/12/24 20:57 Guaifenesin 12 Hr 600 Mg Tabcr PO 1,200 mg Q12HR SANGEETA Administration Heparin Sodium (Porcine) 5,000 units 05/12/24 09:00 05/12/24 20:57 Heparin Sodium 5,000 Units/Ml Vial SUB-Q 5,000 units Q12HR SANGEETA Administration Hydrocortisone Sodium Succinate 50 mg 05/12/24 08:30 05/13/24 06:16 Hydrocortisone Sodium Succinate 100 Mg/2 Ml Vial IV PUSH 50 mg Q6HR SANGEETA Administration Dextrose 1,000 mls @ 100 mls/hr 05/11/24 22:22 Dextrose 5% 1,000 Ml IVPB PRN PRN Hypoglycemia Protocol Cefepime HCl 1 gm in 50 mls @ 100 mls/hr 05/13/24 06:00 05/13/24 06:16 Maxipime 1 Gm/Ns 50 Ml IVPB 100 mls/hr Q12H SANGEETA Administration Lactated Ringer's 1,000 mls @ 100 mls/hr 05/12/24 08:30 05/13/24 05:06 Lr - Lactated Ringers Iv IV CONT 100 mls/hr .Q10H SANGEETA Administration Doxycycline Hyclate 100 mg in 100 mls @ 100 mls/hr 05/12/24 21:00 05/12/24 21:55 Vibramycin 100 Mg/Ns 100 Ml IVPB Infused Q12H SANGEETA Infusion Insulin Aspart 4 - 8 units 05/12/24 08:25 05/13/24 07:30 Insulin Aspart (*Bkc) 100 Units/Ml SUB-Q Not Given Q4H [facility] Protocol Levothyroxine Sodium 75 mcg 05/12/24 06:30 05/13/24 06:16 Levothyroxine Sodium 75 Mcg Tablet PO 75 mcg DAILY@0630 SANGEETA Administration Ondansetron HCl 4 mg 05/11/24 18:35 Ondansetron Inj 4 Mg/2 Ml Vial IV PUSH Q4H PRN Nausea Rosuvastatin Calcium 40 mg 05/12/24 09:00 05/12/24 08:08 Rosuvastatin 20 Mg Tablet PO 40 mg DAILY SANGEETA Administration Vancomycin HCl 1 each 05/11/24 18:14 Vancomycin For Acute Kidney Injury IVPB PRN PRN Vancomycin Protocol Radiology Results: ITS Impressions Chest/Abdomen/Pelvis CT 05/11/24 18:29 IMPRESSION: Extensive right upper lobe, middle lobe and left lower lobe consolidating pneumonia, with mild mediastinal reactive lymph node enlargement Occasional pulmonary nodules, likely related to pulmonary granulomatous disease 29 x 31 mm left adrenal low-attenuation mass, likely due to adrenal adenoma, less likely metastasis Normal appendix Minimal sigmoid diverticulosis; no evidence of diverticulitis Moderate prostatomegaly 2. Fusiform infrarenal abdominal aortic aneurysms, measuring up to 4 cm Central venous right common femoral catheter in right common femoral vein Renal Ultrasound 05/12/24 15:15 IMPRESSION: Unremarkable renal sonogram findings. Carotid Doppler Study 05/12/24 15:34 IMPRESSION: 1. <50% stenosis in the right internal carotid artery. 2. 50-69% stenosis in the left internal carotid artery. Chest X-Ray 05/13/24 06:04 IMPRESSION: 1. Airspace opacities in right upper lobe and left lower lobe with interval improvement, consistent with pneumonia. Labs Labs: Laboratory Results - last 24 hr 05/12/24 05/12/24 05/12/24 08:06 11:24 16:06 WBC RBC Hgb Hct MCV MCH MCHC RDW Plt Count MPV Immature Gran % (Auto) Neut % (Auto) Lymph % (Auto) [place] % (Auto) Eos % (Auto) Baso % (Auto) Lymph # (Auto) [place] # (Auto) Eos # (Auto) Baso # (Auto) Abs Immat Gran (auto) Absolute Neuts (auto) Absolute Nucleated RBC Nucleated RBC % Platelet Estimate Anisocytosis Ovalocytes [place] Cells Schistocytes Puncture Site ABG pH ABG pCO2 ABG pO2 ABG PO2/FiO2 Ratio ABG HCO3 ABG O2 Saturation ABG O2 Content ABG Base Excess A-a Gradient Oxyhemoglobin Carboxyhemoglobin Methemoglobin Reduced Hemoglobin Total Hemoglobin O2 Delivery Device O2 Liters/Min FiO2 Expiratory Pressure Inspiratory Pressure Sodium Potassium Chloride Carbon Dioxide Anion Gap BUN Creatinine Estim Creat Clear Calc Estimated GFR Glucose POC Capillary Glucose 203 H 143 H 182 H Lactic Acid Calcium Magnesium Total Bilirubin AST ALT Alkaline Phosphatase Troponin I Total Protein Albumin Vancomycin Trough 05/12/24 05/12/24 05/13/24 19:56 20:19 00:15 WBC RBC Hgb Hct MCV MCH MCHC RDW Plt Count MPV Immature Gran % (Auto) Neut % (Auto) Lymph % (Auto) [place] % (Auto) Eos % (Auto) Baso % (Auto) Lymph # (Auto) [place] # (Auto) Eos # (Auto) Baso # (Auto) Abs Immat Gran (auto) Absolute Neuts (auto) Absolute Nucleated RBC Nucleated RBC % Platelet Estimate Anisocytosis Ovalocytes [place] Cells Schistocytes Puncture Site ABG pH ABG pCO2 ABG pO2 ABG PO2/FiO2 Ratio ABG HCO3 ABG O2 Saturation ABG O2 Content ABG Base Excess A-a Gradient Oxyhemoglobin Carboxyhemoglobin Methemoglobin Reduced Hemoglobin Total Hemoglobin O2 Delivery Device O2 Liters/Min FiO2 Expiratory Pressure Inspiratory Pressure Sodium Potassium Chloride Carbon Dioxide Anion Gap BUN Creatinine Estim Creat Clear Calc Estimated GFR Glucose POC Capillary Glucose 162 H 164 H Lactic Acid Calcium Magnesium Total Bilirubin AST ALT Alkaline Phosphatase Troponin I Total Protein Albumin Vancomycin Trough 10.8 05/13/24 05/13/24 05/13/24 02:27 02:27 02:27 WBC 18.9 H RBC 3.55 L Hgb 10.3 L Hct 30.0 L MCV 84.5 MCH 29.0 MCHC 34.3 RDW 13.9 Plt Count 240 MPV 9.9 Immature Gran % (Auto) 0.3 Neut % (Auto) 92.9 H Lymph % (Auto) 2.9 L [place] % (Auto) 3.2 Eos % (Auto) 0.5 Baso % (Auto) 0.2 Lymph # (Auto) 0.54 L [place] # (Auto) 0.6 Eos # (Auto) 0.1 Baso # (Auto) 0.0 Abs Immat Gran (auto) 0.06 H Absolute Neuts (auto) 17.6 H Absolute Nucleated RBC 0.000 Nucleated RBC % 0.0 Platelet Estimate Adequate Anisocytosis 1+ Ovalocytes 1+ Hope Cells 1+ Schistocytes Rare Puncture Site ABG pH ABG pCO2 ABG pO2 ABG PO2/FiO2 Ratio ABG HCO3 ABG O2 Saturation ABG O2 Content ABG Base Excess A-a Gradient Oxyhemoglobin Carboxyhemoglobin Methemoglobin Reduced Hemoglobin Total Hemoglobin O2 Delivery Device O2 Liters/Min FiO2 Expiratory Pressure Inspiratory Pressure Sodium 133 L Potassium 3.8 Chloride 105 Carbon Dioxide 16 L Anion Gap 12 BUN 82 H D Creatinine 4.80 H 4.70 H Estim Creat Clear Calc 12 12 Estimated GFR 12 L Glucose POC Capillary Glucose Lactic Acid Calcium Magnesium Total Bilirubin AST ALT Alkaline Phosphatase Troponin I Total Protein Albumin Vancomycin Trough 05/13/24 05/13/24 05/13/24 02:27 04:46 05:02 WBC RBC Hgb Hct MCV MCH MCHC RDW Plt Count MPV Immature Gran % (Auto) Neut % (Auto) Lymph % (Auto) [place] % (Auto) Eos % (Auto) Baso % (Auto) Lymph # (Auto) [place] # (Auto) Eos # (Auto) Baso # (Auto) Abs Immat Gran (auto) Absolute Neuts (auto) Absolute Nucleated RBC Nucleated RBC % Platelet Estimate Anisocytosis Ovalocytes [place] Cells Schistocytes Puncture Site Right radial ABG pH 7.384 ABG pCO2 28.3 L ABG pO2 69.7 L ABG PO2/FiO2 Ratio 1.16 ABG HCO3 16.5 L ABG O2 Saturation 94.1 L ABG O2 Content 13.5 L ABG Base Excess -7.4 A-a Gradient 327.0 Oxyhemoglobin 92.9 Carboxyhemoglobin 0.0 Methemoglobin 0.3 Reduced Hemoglobin 6.8 H Total Hemoglobin 10.3 L O2 Delivery Device Bipap O2 Liters/Min Not Reportable FiO2 60 Expiratory Pressure 6 Inspiratory Pressure 12 Sodium Potassium Chloride Carbon Dioxide Anion Gap BUN Creatinine Estim Creat Clear Calc Estimated GFR 12 L Glucose 153 H POC Capillary Glucose 161 H Lactic Acid 1.0 Calcium 7.2 L Magnesium 2.4 H Total Bilirubin 0.5 AST 38 ALT 20 Alkaline Phosphatase 80 Troponin I 0.058 H* Total Protein 6.0 L Albumin 3.0 L Vancomycin Trough
[2024-05-13] MEDS: SODIUM BICARBONATE 8.4% 50 MEQ/50 ML SYRINGE IV PUSH (08:25)
[2024-05-13] MEDS: FLUTICASONE/UMECLIDIN/VILANTER 100-62.5-25 MCG ELLIPTA 1 PUFF INHALATION (08:44)
[2024-05-13] MEDS: ASPIRIN 81 MG ENTERIC TABLET PO (08:56)
[2024-05-13] MEDS: FAMOTIDINE 20 MG/2 ML VIAL IV PUSH (08:57)
[2024-05-13] MEDS: CLOPIDOGREL BISULFATE 75 MG TABLET PO (08:57)
[2024-05-13] MEDS: DOXYCYCLINE 100 MG/NS 100 ML 100 MG/100 ML BAG IVPB ×2 (08:57→20:44)
[2024-05-13] MEDS: ROSUVASTATIN 20 MG TABLET 40 MG PO (08:58)
[2024-05-13] MEDS: HEPARIN SODIUM 5,000 UNITS/ML VIAL 5000 UNITS SUB-Q ×2 (08:58→20:44)
[2024-05-13] MEDS: guaiFENesin 12 HR 600 MG TABCR 1200 MG PO ×2 (08:58→20:44)
--- NOTE | 2024-05-13 11:16 | P.PNNP_ITS ---
Progress Note: A&P Assessment and Plan (1) Acute kidney injury: Code(s): N17.9 - Acute kidney failure, unspecified Status: Acute Assessment and Plan: * as noted on admission with a creatinine of 4.4mg/dl * unfortunately, only recent labs to compare to are from 2019 (see #2) * evaluation to date noted: * admission CT scan without obstruction * urine electrolytes prerenal * urine eosinophils negative * UA with blood and moderate proteinuria * CPK mildly elevated (probably not enough to affect kidney function) * suspect insult due several issues: * hemodynamic instability/shock * sepsis/infection * prerenal factors * 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 (3) Septic shock: Code(s): A41.9 - Sepsis, unspecified organism; R65.21 - Severe sepsis with septic shock Status: Acute Assessment and Plan: * thought to be secondary to pneumonia and possibly UTI * s/p aggressive IVF resuscitation * off vasopressor therapy at this time * follow culture data - 05/11 blood cultures with Streptococcus pneumoniae * urine culture negative * follow repeat cultures * on antibiotic therapy * follow trend of hemodynamics (4) Acute respiratory failure: Code(s): J96.00 - Acute respiratory failure, unspecified whether with hypoxia or hypercapnia Status: Acute Assessment and Plan: * due to severe/significant pneumonia as noted by admission imaging * no respiratory distress but noted profound hypoxia on admission * complicated by known history of COPD * using BiPAP and high-flow oxygen mask to maintain oxygen saturations * at risk for intubation and mechanical ventilation * continue bronchodilators and antibiotic therapy * Echo results noted * follow respiratory status (5) Systolic CHF: Code(s): I50.20 - Unspecified systolic (congestive) heart failure Status: Acute Assessment and Plan: * acute versus chronic? * Echo results noted: * left ventricular systolic function is moderately globally reduced - estimated at 35-40% * left ventricular diastolic function is grade I diastolic dysfunction * mild aortic valve sclerosis * trace mitral valve regurgitation * volume status appears stable * Cardiology following (6) Multifocal pneumonia: Code(s): J18.9 - Pneumonia, unspecified organism Status: Acute Assessment and Plan: * as noted by admission imaging * continue respiratory support * follow cultures * on antibiotics (7) Anemia: Qualifiers: Anemia type: unspecified type Qualified Code(s): D64.9 - Anemia, unspecified Code(s): D64.9 - Anemia, unspecified Status: Acute Assessment and Plan: * due to LEIA, CKD, and acute illness * follow trend of H/H (8) Chronic obstructive pulmonary disease: Qualifiers: COPD type: emphysema Emphysema type: unspecified Qualified Code(s): J43.9 - Emphysema, unspecified Code(s): J44.9 - Chronic obstructive pulmonary disease, unspecified Status: Chronic Assessment and Plan: * known history * see #4 (9) Type 2 diabetes mellitus: Code(s): E11.9 - Type 2 diabetes mellitus without complications Status: Acute Assessment and Plan: * follow accu-cheks * glycemic control per ophthalmic technician apprentice/hospitalists Will continue to follow. Subjective Date/time seen: 05/13/24 11:16 Interval history: Follow-up for acute kidney injury/acute renal failure on chronic kidney disease. Renal function/creatinine appears abut the same if not a bit worse by recent labs in association with diminished urine output; respiratory status/breathing seems stable with alternating BIPAP and high-flow oxygen therapy; positive blood culture noted; stable hemodynamics noted and off vasopressor therapy. Exam Narrative: General: elderly but WD/WN male in NAD Heart: normal S1 and S2; no rub Lungs: coarse with a few scattered crackles Abdomen: soft, nontender, nondistended, positive bowel sounds Extremities: no cyanosis or clubbing; no edema Skin: warm and dry Objective Data Vital Signs Vital Signs: Vital Signs Temp Pulse Resp BP Pulse Ox O2 Del Method O2 Flow Rate 05/13/24 11:00 84 19 95 High Flow Therapy with Na 45 05/13/24 10:41 77 97 BiPAP 05/13/24 10:00 97.8 F 75 22 H 122/61 98 05/13/24 10:00 78 05/13/24 10:14 76 96 BiPAP 05/13/24 10:03 74 30 H 97 BiPAP 05/13/24 09:00 74 20 05/13/24 08:46 77 22 H 05/13/24 08:46 77 22 H 94 High Flow Therapy with Na 45 05/13/24 08:00 97.1 F L 74 23 H 124/63 93 05/13/24 08:00 74 05/13/24 08:00 74 23 H 93 High Flow Therapy with Na 45 05/13/24 06:00 65 25 H 92 High Flow Therapy with Na 45 05/13/24 06:00 97.6 F 65 25 H 106/45 L 92 05/13/24 06:00 65 05/13/24 05:12 67 25 H 94 BiPAP 05/13/24 04:00 64 05/13/24 02:00 65 05/13/24 04:00 97.1 F L 64 24 H 104/63 94 05/13/24 04:00 66 05/13/24 04:00 66 25 H 92 BiPAP 05/13/24 02:33 66 28 H 05/13/24 02:00 97.3 F L 65 18 106/55 L 95 05/13/24 02:00 65 05/13/24 02:20 63 21 H 05/13/24 02:20 63 21 H 92 BiPAP 05/13/24 00:37 63 111/73 05/13/24 00:00 96.9 F L 62 19 111/73 91 05/13/24 00:00 69 05/13/24 00:00 59 L 19 91 BiPAP 05/12/24 23:10 72 19 90 BiPAP 05/12/24 22:00 62 107/54 L 05/12/24 20:00 64 110/61 05/12/24 22:00 97.6 F 62 25 H 110/61 93 05/12/24 21:26 66 05/12/24 20:45 66 19 05/12/24 20:45 66 25 H 92 BiPAP 05/12/24 20:30 67 24 H 05/12/24 20:30 93 High Flow Therapy with Na 45 05/12/24 20:00 97.8 F 64 27 H 107/54 L 93 05/12/24 19:42 76 05/12/24 19:36 76 20 100 High Flow Therapy with Na 45 05/12/24 18:15 70 96/75 L 05/12/24 17:30 64 105/56 L 05/12/24 17:15 70 112/61 05/12/24 17:00 71 104/62 05/12/24 16:45 70 103/63 05/12/24 15:30 62 104/55 L 05/12/24 15:15 63 108/57 L 05/12/24 18:00 97.5 F L 76 22 H 91/67 L 92 05/12/24 18:00 76 05/12/24 16:00 96.6 F L 68 19 104/55 L 98 05/12/24 16:00 68 05/12/24 16:00 68 19 98 High Flow Therapy with Na 45 05/12/24 15:00 95 High Flow Therapy with Na 45 05/12/24 15:00 63 124/59 L 05/12/24 13:15 58 L 99/53 L 05/12/24 14:00 56 L 106/57 L 05/12/24 14:00 97 F L 56 L 19 106/57 L 93 05/12/24 14:00 56 L 05/12/24 14:16 64 24 H 05/12/24 14:14 66 24 H 94 BiPAP 05/12/24 14:09 60 24 H Intake/Output Intake/Output: Intake & Output 05/10/24 05/11/24 05/12/24 05/13/24 23:59 23:59 23:59 23:59 Intake Total 923.7 2383.3 1640 Output Total 120 150 Balance 923.7 2263.3 1490 Meds/Results Medications: Active Medications Generic Name Dose Route Start Last Admin Trade Name Freq PRN Reason Stop Dose Admin Acetaminophen 650 mg 05/11/24 18:35 05/12/24 08:08 Acetaminophen 325 Mg Tablet PO 650 mg Q4H PRN Administration Mild Pain (1-3) or Fever Albuterol/Ipratropium 3 ml 05/12/24 02:00 05/13/24 08:44 Ipratropium 0.5 Mg/Albuterol Sulfate 2.5 Mg Ampul.Neb 3 Ml INHALATION 3 ml Q6HRT SANGEETA Administration Aspirin 81 mg 05/12/24 09:00 05/13/24 08:56 Aspirin 81 Mg Enteric Tablet PO 81 mg DAILY SANGEETA Administration Clopidogrel Bisulfate 75 mg 05/12/24 09:00 05/13/24 08:57 Clopidogrel Bisulfate 75 Mg Tablet PO 75 mg DAILY SANGEETA Administration Dextrose 12.5 gm 05/11/24 22:22 Dextrose 50% 25 Gm/50 Ml Syringe IV PUSH PRN PRN Hypoglycemia Protocol Famotidine 20 mg 05/14/24 09:00 Famotidine 20 Mg/2 Ml Vial IV PUSH DAILY SANGEETA Fluticasone/Umeclidinium/Vilanterol 1 puff 05/12/24 08:00 05/13/24 08:44 Fluticasone/Umeclidin/Vilanter 100-62.5-25 Mcg Ellipta INHALATION 1 puff DAILYRT SANGEETA Administration Glucagon 1 mg 05/11/24 22:22 Glucagon For Inj 1 Mg Vial IM PRN PRN Hypoglycemia Protocol Glucose 15 gm 05/11/24 22:22 Glucose Oral Gel 15 Gm Of Glucse In 37.5 Gm Tube PO PRN PRN Hypoglycemia Protocol Guaifenesin 1,200 mg 05/12/24 09:00 05/13/24 08:58 Guaifenesin 12 Hr 600 Mg Tabcr PO 1,200 mg Q12HR SANGEETA Administration Heparin Sodium (Porcine) 5,000 units 05/12/24 09:00 05/13/24 08:58 Heparin Sodium 5,000 Units/Ml Vial SUB-Q 5,000 units Q12HR SANGEETA Administration Hydrocortisone Sodium Succinate 50 mg 05/12/24 08:30 05/13/24 12:00 Hydrocortisone Sodium Succinate 100 Mg/2 Ml Vial IV PUSH 50 mg Q6HR SANGEETA Administration Dextrose 1,000 mls @ 100 mls/hr 05/11/24 22:22 Dextrose 5% 1,000 Ml IVPB PRN PRN Hypoglycemia Protocol Cefepime HCl 1 gm in 50 mls @ 100 mls/hr 05/13/24 06:00 05/13/24 06:46 Maxipime 1 Gm/Ns 50 Ml IVPB Infused Q12H SANGEETA Infusion Doxycycline Hyclate 100 mg in 100 mls @ 100 mls/hr 05/12/24 21:00 05/13/24 10:00 Vibramycin 100 Mg/Ns 100 Ml IVPB Infused Q12H SANGEETA Infusion Albumin Human 100 mls @ 60 mls/hr 05/13/24 12:00 05/13/24 12:52 Albutein IVPB 05/14/24 07:39 60 mls/hr Q6HR SANGEETA Administration Insulin Aspart 4 - 8 units 05/12/24 08:25 05/13/24 12:04 Insulin Aspart (*Bkc) 100 Units/Ml SUB-Q 4 units Q4H SANGEETA Administration Protocol Levothyroxine Sodium 75 mcg 05/12/24 06:30 05/13/24 06:16 Levothyroxine Sodium 75 Mcg Tablet PO 75 mcg DAILY@0630 SANGEETA Administration Ondansetron HCl 4 mg 05/11/24 18:35 Ondansetron Inj 4 Mg/2 Ml Vial IV PUSH Q4H PRN Nausea Rosuvastatin Calcium 40 mg 05/12/24 09:00 05/13/24 08:58 Rosuvastatin 20 Mg Tablet PO 40 mg DAILY SANGEETA Administration Vancomycin HCl 1 each 05/11/24 18:14 Vancomycin For Acute Kidney Injury IVPB PRN PRN Vancomycin Protocol Radiology Results: ITS Impressions Chest/Abdomen/Pelvis CT 05/11/24 18:29 IMPRESSION: Extensive right upper lobe, middle lobe and left lower lobe consolidating pneumonia, with mild mediastinal reactive lymph node enlargement Occasional pulmonary nodules, likely related to pulmonary granulomatous disease 29 x 31 mm left adrenal low-attenuation mass, likely due to adrenal adenoma, less likely metastasis Normal appendix Minimal sigmoid diverticulosis; no evidence of diverticulitis Moderate prostatomegaly 2. Fusiform infrarenal abdominal aortic aneurysms, measuring up to 4 cm Central venous right common femoral catheter in right common femoral vein Renal Ultrasound 05/12/24 15:15 IMPRESSION: Unremarkable renal sonogram findings. Carotid Doppler Study 05/12/24 15:34 IMPRESSION: 1. <50% stenosis in the right internal carotid artery. 2. 50-69% stenosis in the left internal carotid artery. Chest X-Ray 05/13/24 06:04 IMPRESSION: 1. Airspace opacities in right upper lobe and left lower lobe with interval improvement, consistent with pneumonia. Labs Labs: Laboratory Tests 05/13/24 02:27 05/13/24 02:27 Lactic Acid 1.0 Calcium 7.2 L Magnesium 2.4 H Total Bilirubin 0.5 AST 38 ALT 20 Alkaline Phosphatase 80 Troponin I 0.058 H* Total Protein 6.0 L Albumin 3.0 L Microbiology 05/11/24 16:32 Blood Blood Culture - Preliminary Streptococcus pneumoniae 05/11/24 16:32 Blood Blood Culture - Preliminary Streptococcus pneumoniae
[2024-05-13 11:48] LABS: Glucose Point of Care 205 mg/dl (65-105)
--- NOTE | 2024-05-13 11:49 | WPDINTPN ---
Progress Note: A&P Assessment and Plan (1) Acute respiratory failure: Code(s): J96.00 - Acute respiratory failure, unspecified whether with hypoxia or hypercapnia Status: Acute Assessment and Plan: 05/12: Patient has baseline COPD and now presented with pneumonia. This morning he is on Airvo at 98% FiO2 along with non-rebreather mask. Although he does not appear in respiratory distress he has significant hypoxia. spoke with the patient and started him on a trial of BiPAP to see if nippv helps and allows us to wean down FiO2. - spoke to the patient and mentioned that he may need intubation and mechanical ventilation if he does not improve or continues to deteriorate. Patient is agreeable to intubation if needed. At this time patient is not in respiratory distress and is maintaining saturations. He is also not CO2 retainer as per his last ABG. -chest x-ray this morning: Airspace opacities in right upper lobe and left lower lobe with interval improvement, consistent with pneumonia -continue bronchodilators -continue steroids for pneumonia -continue cefepime and vancomycin -will discontinue IV fluids (2) Septic shock: Code(s): A41.9 - Sepsis, unspecified organism; R65.21 - Severe sepsis with septic shock Status: Acute Assessment and Plan: Septic shock secondary to pneumonia and UTI Patient has received IV fluid bolus and is now on maintenance IV fluids. Cautious IV fluids to minimize risk of volume overload Off pressors Continue Hydrocortisone 05/11: Blood cultures growing Streptococcus pneumonia 2/2 bottles, sensitivities pending 05/12: Urine culture pending -continue vancomycin cefepime and doxycycline (05/12) - urine Legionella and pneumococcal antigen pending Lactic acid has normalized 05/12/2024: Echocardiogram Summary 1. Technically suboptimal study due to poor sonographic images. 2. Definity contrast administered improved wall motion interpretation. 3. Left ventricular chamber dimension is mildly enlarged. 4. Left ventricular systolic function is moderately globally reduced, estimated at 35-40%. 5. There is mild concentric increased left ventricular wall thickness. 6. The left ventricular diastolic function is grade I diastolic dysfunction. 7. Left atrial chamber dimension is mildly enlarged. 8. There is mild aortic valve sclerosis. 9. There is trace mitral valve regurgitation. (3) Multifocal pneumonia: Code(s): J18.9 - Pneumonia, unspecified organism Status: Acute Assessment and Plan: See above (4) Acute kidney injury: Code(s): N17.9 - Acute kidney failure, unspecified Status: Acute Assessment and Plan: He presented with creatinine of 4.4. Baseline unknown as last recorded creatinine is from 2019 -CT scan did not show any stone or hydronephrosis This is likely secondary to sepsis and shock which may have progressed to ATN -patient significantly positive, will discontinue maintenance IV fluid -will add albumin for volume expansion -Monitor urine output electrolytes and creatinine -appreciate Nephrology evaluation recommendation (5) Type 2 diabetes mellitus: Code(s): E11.9 - Type 2 diabetes mellitus without complications Status: Acute Assessment and Plan: Sliding scale insulin npo (6) Hypothyroidism: Code(s): E03.9 - Hypothyroidism, unspecified Status: Acute Assessment and Plan: Elevated TSH -continue levothyroxine (7) Elevated troponin: Code(s): R79.89 - Other specified abnormal findings of blood chemistry Status: Acute Assessment and Plan: Mildly elevated troponin in the setting of septic shock and acute kidney failure likely to monitor radiated ischemia. Thomas denies any chest pain. -troponins trending down -Continue aspirin Plavix and statin -echocardiogram as above (8) Chronic obstructive pulmonary disease: Qualifiers: COPD type: emphysema Emphysema type: unspecified Qualified Code(s): J43.9 - Emphysema, unspecified Code(s): J44.9 - Chronic obstructive pulmonary disease, unspecified Status: Acute Assessment and Plan: Continue NIPPV, steroids, bronchodilators (9) Electrolyte abnormality: Code(s): E87.8 - Other disorders of electrolyte and fluid balance, not elsewhere classified Status: Acute Assessment and Plan: Magnesium is normalized after replacement Plan DVT prophylaxis -subcutaneous heparin Stress ulcer prophylaxis -Pepcid daily due to acute kidney injury Nutrition -heart healthy diet Code Status: patient wishes to be full code Total Critical Care Time: 35 minutes -discussed with patient and his family at bedside updated them with patient's condition and plan of care. I answered all questions. They are aware that he is on antibiotics for his pneumonia. He also aware that his kidney functions have taken ahead with unknown baseline at this time. The aware that nephrology is following the patient Due to a high probability of clinically significant, life threatening deterioration, the patient required my highest level of preparedness to intervene emergently and I personally spent this critical care time directly and personally managing the patient. This critical care time included obtaining a history; examining the patient; pulse oximetry; ordering and review of studies; arranging urgent treatment with development of a management plan; evaluation of patient's response to treatment; frequent reassessment; and discussions with other providers. It was exclusive of separately billable procedures and treating other patients and teaching time. Please see Assessment and Plan section and the rest of the note for further information on patient assessment and treatment This dictation may have been done utilizing a voice recognition system. Attempts have been made to correct errors. However, there may be uncorrected grammatical, spelling, and recognitions errors present. Subjective Date/time seen: 05/13/24 11:49 Interval history: Reason for consult: Acute respiratory failure, pneumonia, septic shock, acute kidney injury 05/13/2024: Patient seen and examined the ICU, is awake, alert, able to answer questions appropriately, in no acute respiratory distress. Has been alternating between high-flow therapy and BiPAP. Patient prefers BiPAP. Patient is afebrile, low urine output. Blood cultures growing Gram-positive cocci in chains 1 of 2 bottles. White count trending down. Troponins trending down. Chest x-ray shows right upper lobe and left lower lobe pneumonia. Creatinine trending up, 4.70 this morning Review of Systems Review of Systems: All systems reviewed & are unremarkable except as noted in HPI and below Exam Narrative: General: Pt is alert awake and in no significant distress Lungs/Chest: l bilateral coarse breathing with crackles but no wheezing, adequate air entry Cardiac: RRR. Normal S1 S2. No murmurs Circulation: Pedal pulses are intact and symmetrical. Abdomen: Normal bowel sounds. Soft. NT. ND. Extremities: No clubbing, cyanosis or edema. Warm : Garcia in place Neurologic: Follows commands. Moves all 4 extremities PERRL AO x3 Skin: No Rash Objective Data Vital Signs Vital Signs: Vital Signs - 24 hr 05/12/24 12:00 05/12/24 12:00 05/12/24 12:00 Temperature 97.9 F Pulse Rate 68 63 63 Respiratory Rate 23 H 26 H Blood Pressure 97/50 L Pulse Oximetry 93 93 Oxygen Delivery BiPAP Oxygen Flow Rate Fraction of Inspired Oxygen 60 05/12/24 13:01 05/12/24 14:09 05/12/24 14:14 Temperature Pulse Rate 63 60 66 Respiratory Rate 24 H 24 H Blood Pressure 101/48 L Pulse Oximetry 94 Oxygen Delivery BiPAP Oxygen Flow Rate Fraction of Inspired Oxygen 05/12/24 14:16 05/12/24 14:00 05/12/24 14:00 Temperature 97 F L Pulse Rate 64 56 L 56 L Respiratory Rate 24 H 19 Blood Pressure 106/57 L Pulse Oximetry 93 Oxygen Delivery Oxygen Flow Rate Fraction of Inspired Oxygen 05/12/24 14:00 05/12/24 13:15 05/12/24 15:00 Temperature Pulse Rate 56 L 58 L 63 Respiratory Rate Blood Pressure 106/57 L 99/53 L 124/59 L Pulse Oximetry Oxygen Delivery Oxygen Flow Rate Fraction of Inspired Oxygen 05/12/24 15:00 05/12/24 16:00 05/12/24 16:00 Temperature Pulse Rate 68 68 Respiratory Rate 19 Blood Pressure Pulse Oximetry 95 98 Oxygen Delivery High Flow Therapy with Na High Flow Therapy with Na Oxygen Flow Rate 45 45 Fraction of Inspired Oxygen 98 80 05/12/24 16:00 05/12/24 18:00 05/12/24 18:00 Temperature 96.6 F L 97.5 F L Pulse Rate 68 76 76 Respiratory Rate 19 22 H Blood Pressure 104/55 L 91/67 L Pulse Oximetry 98 92 Oxygen Delivery Oxygen Flow Rate Fraction of Inspired Oxygen 05/12/24 15:15 05/12/24 15:30 05/12/24 16:45 Temperature Pulse Rate 63 62 70 Respiratory Rate Blood Pressure 108/57 L 104/55 L 103/63 Pulse Oximetry Oxygen Delivery Oxygen Flow Rate Fraction of Inspired Oxygen 05/12/24 17:00 05/12/24 17:15 05/12/24 17:30 Temperature Pulse Rate 71 70 64 Respiratory Rate Blood Pressure 104/62 112/61 105/56 L Pulse Oximetry Oxygen Delivery Oxygen Flow Rate Fraction of Inspired Oxygen 05/12/24 18:15 05/12/24 19:36 05/12/24 19:42 Temperature Pulse Rate 70 76 76 Respiratory Rate 20 Blood Pressure 96/75 L Pulse Oximetry 100 Oxygen Delivery High Flow Therapy with Na Oxygen Flow Rate 45 Fraction of Inspired Oxygen 70 05/12/24 20:00 05/12/24 20:30 05/12/24 20:30 Temperature 97.8 F Pulse Rate 64 67 Respiratory Rate 27 H 24 H Blood Pressure 107/54 L Pulse Oximetry 93 93 Oxygen Delivery High Flow Therapy with Na Oxygen Flow Rate 45 Fraction of Inspired Oxygen 70 05/12/24 20:45 05/12/24 20:45 05/12/24 21:26 Temperature Pulse Rate 66 66 66 Respiratory Rate 25 H 19 Blood Pressure Pulse Oximetry 92 Oxygen Delivery BiPAP Oxygen Flow Rate Fraction of Inspired Oxygen 05/12/24 22:00 05/12/24 20:00 05/12/24 22:00 Temperature 97.6 F Pulse Rate 62 64 62 Respiratory Rate 25 H Blood Pressure 110/61 110/61 107/54 L Pulse Oximetry 93 Oxygen Delivery Oxygen Flow Rate Fraction of Inspired Oxygen 05/12/24 23:10 05/13/24 00:00 05/13/24 00:00 Temperature Pulse Rate 72 59 L 69 Respiratory Rate 19 19 Blood Pressure Pulse Oximetry 90 91 Oxygen Delivery BiPAP BiPAP Oxygen Flow Rate Fraction of Inspired Oxygen 70 05/13/24 00:00 05/13/24 00:37 05/13/24 02:20 Temperature 96.9 F L Pulse Rate 62 63 63 Respiratory Rate 19 21 H Blood Pressure 111/73 111/73 Pulse Oximetry 91 92 Oxygen Delivery BiPAP Oxygen Flow Rate Fraction of Inspired Oxygen 05/13/24 02:20 05/13/24 02:00 05/13/24 02:00 Temperature 97.3 F L Pulse Rate 63 65 65 Respiratory Rate 21 H 18 Blood Pressure 106/55 L Pulse Oximetry 95 Oxygen Delivery Oxygen Flow Rate Fraction of Inspired Oxygen 05/13/24 02:33 05/13/24 04:00 05/13/24 04:00 Temperature Pulse Rate 66 66 66 Respiratory Rate 28 H 25 H Blood Pressure Pulse Oximetry 92 Oxygen Delivery BiPAP Oxygen Flow Rate Fraction of Inspired Oxygen 70 05/13/24 04:00 05/13/24 02:00 05/13/24 04:00 Temperature 97.1 F L Pulse Rate 64 65 64 Respiratory Rate 24 H Blood Pressure 104/63 Pulse Oximetry 94 Oxygen Delivery Oxygen Flow Rate Fraction of Inspired Oxygen 05/13/24 05:12 05/13/24 06:00 05/13/24 06:00 Temperature 97.6 F Pulse Rate 67 65 65 Respiratory Rate 25 H 25 H Blood Pressure 106/45 L Pulse Oximetry 94 92 Oxygen Delivery BiPAP Oxygen Flow Rate Fraction of Inspired Oxygen 05/13/24 06:00 05/13/24 08:00 05/13/24 08:00 Temperature Pulse Rate 65 74 74 Respiratory Rate 25 H 23 H Blood Pressure Pulse Oximetry 92 93 Oxygen Delivery High Flow Therapy with Na High Flow Therapy with Na Oxygen Flow Rate 45 45 Fraction of Inspired Oxygen 70 70 05/13/24 08:00 05/13/24 08:46 05/13/24 08:46 Temperature 97.1 F L Pulse Rate 74 77 77 Respiratory Rate 23 H 22 H 22 H Blood Pressure 124/63 Pulse Oximetry 93 94 Oxygen Delivery High Flow Therapy with Na Oxygen Flow Rate 45 Fraction of Inspired Oxygen 70 05/13/24 09:00 05/13/24 10:03 05/13/24 10:14 Temperature Pulse Rate 74 74 76 Respiratory Rate 20 30 H Blood Pressure Pulse Oximetry 97 96 Oxygen Delivery BiPAP BiPAP Oxygen Flow Rate Fraction of Inspired Oxygen 05/13/24 10:00 05/13/24 10:00 05/13/24 10:41 Temperature 97.8 F Pulse Rate 78 75 77 Respiratory Rate 22 H Blood Pressure 122/61 Pulse Oximetry 98 97 Oxygen Delivery BiPAP Oxygen Flow Rate Fraction of Inspired Oxygen Intake/Output Intake/Output: Intake & Output 05/10/24 05/11/24 05/12/24 05/13/24 23:59 23:59 23:59 23:59 Intake Total 923.7 2383.3 1490 Output Total 120 150 Balance 923.7 2263.3 1340 Meds/Results Medications: Active Medications Generic Name Dose Route Start Last Admin Trade Name Freq PRN Reason Stop Dose Admin Acetaminophen 650 mg 05/11/24 18:35 05/12/24 08:08 Acetaminophen 325 Mg Tablet PO 650 mg Q4H PRN Administration Mild Pain (1-3) or Fever Albuterol/Ipratropium 3 ml 05/12/24 02:00 05/13/24 08:44 Ipratropium 0.5 Mg/Albuterol Sulfate 2.5 Mg Ampul.Neb 3 Ml INHALATION 3 ml Q6HRT SANGEETA Administration Aspirin 81 mg 05/12/24 09:00 05/13/24 08:56 Aspirin 81 Mg Enteric Tablet PO 81 mg DAILY SANGEETA Administration Clopidogrel Bisulfate 75 mg 05/12/24 09:00 05/13/24 08:57 Clopidogrel Bisulfate 75 Mg Tablet PO 75 mg DAILY SANGEETA Administration Dextrose 12.5 gm 05/11/24 22:22 Dextrose 50% 25 Gm/50 Ml Syringe IV PUSH PRN PRN Hypoglycemia Protocol Famotidine 20 mg 05/12/24 09:00 05/13/24 08:57 Famotidine 20 Mg/2 Ml Vial IV PUSH 20 mg Q12HR SANGEETA Administration Fluticasone/Umeclidinium/Vilanterol 1 puff 05/12/24 08:00 05/13/24 08:44 Fluticasone/Umeclidin/Vilanter 100-62.5-25 Mcg Ellipta INHALATION 1 puff DAILYRT SANGEETA Administration Glucagon 1 mg 05/11/24 22:22 Glucagon For Inj 1 Mg Vial IM PRN PRN Hypoglycemia Protocol Glucose 15 gm 05/11/24 22:22 Glucose Oral Gel 15 Gm Of Glucse In 37.5 Gm Tube PO PRN PRN Hypoglycemia Protocol Guaifenesin 1,200 mg 05/12/24 09:00 05/13/24 08:58 Guaifenesin 12 Hr 600 Mg Tabcr PO 1,200 mg Q12HR SANGEETA Administration Heparin Sodium (Porcine) 5,000 units 05/12/24 09:00 05/13/24 08:58 Heparin Sodium 5,000 Units/Ml Vial SUB-Q 5,000 units Q12HR SANGEETA Administration Hydrocortisone Sodium Succinate 50 mg 05/12/24 08:30 05/13/24 06:16 Hydrocortisone Sodium Succinate 100 Mg/2 Ml Vial IV PUSH 50 mg Q6HR SANGEETA Administration Dextrose 1,000 mls @ 100 mls/hr 05/11/24 22:22 Dextrose 5% 1,000 Ml IVPB PRN PRN Hypoglycemia Protocol Cefepime HCl 1 gm in 50 mls @ 100 mls/hr 05/13/24 06:00 05/13/24 06:16 Maxipime 1 Gm/Ns 50 Ml IVPB 100 mls/hr Q12H SANGEETA Administration Doxycycline Hyclate 100 mg in 100 mls @ 100 mls/hr 05/12/24 21:00 05/13/24 08:57 Vibramycin 100 Mg/Ns 100 Ml IVPB 100 mls/hr Q12H SANGEETA Administration Insulin Aspart 4 - 8 units 05/12/24 08:25 05/13/24 07:30 Insulin Aspart (*Bkc) 100 Units/Ml SUB-Q Not Given Q4H SANGEETA Protocol Levothyroxine Sodium 75 mcg 05/12/24 06:30 05/13/24 06:16 Levothyroxine Sodium 75 Mcg Tablet PO 75 mcg DAILY@0630 [facility] Administration Ondansetron HCl 4 mg 05/11/24 18:35 Ondansetron Inj 4 Mg/2 Ml Vial IV PUSH Q4H PRN Nausea Rosuvastatin Calcium 40 mg 05/12/24 09:00 05/13/24 08:58 Rosuvastatin 20 Mg Tablet PO 40 mg DAILY SANGEETA Administration Vancomycin HCl 1 each 05/11/24 18:14 Vancomycin For Acute Kidney Injury IVPB PRN PRN Vancomycin Protocol Radiology Results: ITS Impressions Chest/Abdomen/Pelvis CT 05/11/24 18:29 IMPRESSION: Extensive right upper lobe, middle lobe and left lower lobe consolidating pneumonia, with mild mediastinal reactive lymph node enlargement Occasional pulmonary nodules, likely related to pulmonary granulomatous disease 29 x 31 mm left adrenal low-attenuation mass, likely due to adrenal adenoma, less likely metastasis Normal appendix Minimal sigmoid diverticulosis; no evidence of diverticulitis Moderate prostatomegaly 2. Fusiform infrarenal abdominal aortic aneurysms, measuring up to 4 cm Central venous right common femoral catheter in right common femoral vein Renal Ultrasound 05/12/24 15:15 IMPRESSION: Unremarkable renal sonogram findings. Carotid Doppler Study 05/12/24 15:34 IMPRESSION: 1. <50% stenosis in the right internal carotid artery. 2. 50-69% stenosis in the left internal carotid artery. Chest X-Ray 05/13/24 06:04 IMPRESSION: 1. Airspace opacities in right upper lobe and left lower lobe with interval improvement, consistent with pneumonia. Labs Labs: Laboratory Results - last 24 hr 05/12/24 05/12/24 05/12/24 16:06 19:56 20:19 WBC RBC Hgb Hct MCV MCH MCHC RDW Plt Count MPV Immature Gran % (Auto) Neut % (Auto) Lymph % (Auto) [place] % (Auto) Eos % (Auto) Baso % (Auto) Lymph # (Auto) [place] # (Auto) Eos # (Auto) Baso # (Auto) Abs Immat Gran (auto) Absolute Neuts (auto) Absolute Nucleated RBC Nucleated RBC % Platelet Estimate Anisocytosis Ovalocytes [place] Cells Schistocytes Puncture Site ABG pH ABG pCO2 ABG pO2 ABG PO2/FiO2 Ratio ABG HCO3 ABG O2 Saturation ABG O2 Content ABG Base Excess A-a Gradient Oxyhemoglobin Carboxyhemoglobin Methemoglobin Reduced Hemoglobin Total Hemoglobin O2 Delivery Device O2 Liters/Min FiO2 Expiratory Pressure Inspiratory Pressure Sodium Potassium Chloride Carbon Dioxide Anion Gap BUN Creatinine Estim Creat Clear Calc Estimated GFR Glucose POC Capillary Glucose 182 H 162 H Lactic Acid Calcium Magnesium Total Bilirubin AST ALT Alkaline Phosphatase Troponin I Total Protein Albumin Vancomycin Trough 10.8 05/13/24 05/13/24 05/13/24 00:15 02:27 02:27 WBC 18.9 H RBC 3.55 L Hgb 10.3 L Hct 30.0 L MCV 84.5 MCH 29.0 MCHC 34.3 RDW 13.9 Plt Count 240 MPV 9.9 Immature Gran % (Auto) 0.3 Neut % (Auto) 92.9 H Lymph % (Auto) 2.9 L [place] % (Auto) 3.2 Eos % (Auto) 0.5 Baso % (Auto) 0.2 Lymph # (Auto) 0.54 L [place] # (Auto) 0.6 Eos # (Auto) 0.1 Baso # (Auto) 0.0 Abs Immat Gran (auto) 0.06 H Absolute Neuts (auto) 17.6 H Absolute Nucleated RBC 0.000 Nucleated RBC % 0.0 Platelet Estimate Adequate Anisocytosis 1+ Ovalocytes 1+ [place] Cells 1+ Schistocytes Rare Puncture Site ABG pH ABG pCO2 ABG pO2 ABG PO2/FiO2 Ratio ABG HCO3 ABG O2 Saturation ABG O2 Content ABG Base Excess A-a Gradient Oxyhemoglobin Carboxyhemoglobin Methemoglobin Reduced Hemoglobin Total Hemoglobin O2 Delivery Device O2 Liters/Min FiO2 Expiratory Pressure Inspiratory Pressure Sodium 133 L Potassium 3.8 Chloride 105 Carbon Dioxide 16 L Anion Gap 12 BUN 82 H D Creatinine 4.80 H 4.70 H Estim Creat Clear Calc 12 Estimated GFR Glucose POC Capillary Glucose 164 H Lactic Acid Calcium Magnesium Total Bilirubin AST ALT Alkaline Phosphatase Troponin I Total Protein Albumin Vancomycin Trough 05/13/24 05/13/24 05/13/24 02:27 02:27 04:46 WBC RBC Hgb Hct MCV MCH MCHC RDW Plt Count MPV Immature Gran % (Auto) Neut % (Auto) Lymph % (Auto) [place] % (Auto) Eos % (Auto) Baso % (Auto) Lymph # (Auto) [place] # (Auto) Eos # (Auto) Baso # (Auto) Abs Immat Gran (auto) Absolute Neuts (auto) Absolute Nucleated RBC Nucleated RBC % Platelet Estimate Anisocytosis Ovalocytes [place] Cells Schistocytes Puncture Site ABG pH ABG pCO2 ABG pO2 ABG PO2/FiO2 Ratio ABG HCO3 ABG O2 Saturation ABG O2 Content ABG Base Excess A-a Gradient Oxyhemoglobin Carboxyhemoglobin Methemoglobin Reduced Hemoglobin Total Hemoglobin O2 Delivery Device O2 Liters/Min FiO2 Expiratory Pressure Inspiratory Pressure Sodium Potassium Chloride Carbon Dioxide Anion Gap BUN Creatinine Estim Creat Clear Calc 12 Estimated GFR 12 L 12 L Glucose 153 H POC Capillary Glucose 161 H Lactic Acid 1.0 Calcium 7.2 L Magnesium 2.4 H Total Bilirubin 0.5 AST 38 ALT 20 Alkaline Phosphatase 80 Troponin I 0.058 H* Total Protein 6.0 L Albumin 3.0 L Vancomycin Trough 05/13/24 05/13/24 05:02 11:46 WBC RBC Hgb Hct MCV MCH MCHC RDW Plt Count MPV Immature Gran % (Auto) Neut % (Auto) Lymph % (Auto) [place] % (Auto) Eos % (Auto) Baso % (Auto) Lymph # (Auto) [place] # (Auto) Eos # (Auto) Baso # (Auto) Abs Immat Gran (auto) Absolute Neuts (auto) Absolute Nucleated RBC Nucleated RBC % Platelet Estimate Anisocytosis Ovalocytes [place] Cells Schistocytes Puncture Site Right radial ABG pH 7.384 ABG pCO2 28.3 L ABG pO2 69.7 L ABG PO2/FiO2 Ratio 1.16 ABG HCO3 16.5 L ABG O2 Saturation 94.1 L ABG O2 Content 13.5 L ABG Base Excess -7.4 A-a Gradient 327.0 Oxyhemoglobin 92.9 Carboxyhemoglobin 0.0 Methemoglobin 0.3 Reduced Hemoglobin 6.8 H Total Hemoglobin 10.3 L O2 Delivery Device Bipap O2 Liters/Min Not Reportable FiO2 60 Expiratory Pressure 6 Inspiratory Pressure 12 Sodium Potassium Chloride Carbon Dioxide Anion Gap BUN Creatinine Estim Creat Clear Calc Estimated GFR Glucose POC Capillary Glucose 205 H Lactic Acid Calcium Magnesium Total Bilirubin AST ALT Alkaline Phosphatase Troponin I Total Protein Albumin Vancomycin Trough Quality VTE Prophylaxis VTE prophylaxis: mechanical ordered and pharmacologic ordered
[2024-05-13] MEDS: INSULIN ASPART (*BKC) 100 UNITS/ML SUB-Q ×2 (12:04→20:53)
[2024-05-13] MEDS: ALBUMIN HUMAN 25% 25 GM/100 ML 100 ML IVPB ×3 (12:52→23:31)
[2024-05-13 17:19] LABS: Glucose Point of Care 143 mg/dl (65-105)
[2024-05-13 20:52] LABS: Glucose Point of Care 217 mg/dl (65-105)
[2024-05-13 23:41] LABS: Glucose Point of Care 182 mg/dl (65-105)
[2024-05-14] VITALS (28 sets, daily range): BP systolic 110–152; BP diastolic 61–96; PULSE 70–90; RESP 16–28; TEMP 36.2–37.2; O2SAT 91–96
[2024-05-14] MEDS: IPRATROPIUM 0.5 MG/ALBUTEROL SULFATE 2.5 MG AMPUL.NEB 3 ML INHALATION ×4 (03:17→19:58)
[2024-05-14 04:50] LABS: Basophils Percent Auto 0.1 % (0.2-1.2); Hemoglobin 8.9 g/dL (14.0-18.0); Immature Granulocyte Absolute 0.21 K/mm3 (0.00-0.031); Immature Granulocyte Percent A 1.3 % (0-0.5); Lymphocytes Absolute Auto 0.49 K/mm3 (0.9-3.2); Mean Corpuscular HGB Conc 35.6 g/dl (32-36); Mean Corpuscular Hemoglobin 29.7 pg (26-34); Mean Corpuscular Volume 83.3 fl (80-100); Mean Platelet Volume 9.7 fl (7.4-10.4); Monocytes Absolute Auto 0.9 K/mm3 (0.1-0.6); Monocytes Percent Auto 5.4 % (2.6-8.5); Neutrophils Absolute Auto 14.9 K/mm3 (1.3-6.7); Neutrophils Percent Auto 90.2 % (45.5-73.1); Platelet Count Result 211 k/mm3 (150-375); Red Cell Distribution Width 14.1 % (11.5-14.5); White Blood Count 16.5 K/mm3 (4.5-10.0)
[2024-05-14] MEDS: HYDROCORTISONE SODIUM SUCCINATE 100 MG/2 ML VIAL 50 MG IV PUSH ×3 (04:57→17:31)
[2024-05-14] MEDS: CEFEPIME 1 GM/NS 50 ML 1 GM/50 ML BAG IVPB (04:58)
[2024-05-14 05:09] LABS: Lactic Acid Reflex 1.4 mmol/L (0.7-2.0); Ovalocytes 1+; Platelet Estimate Adequate (Adequate); Schistocytes None Seen
[2024-05-14 05:11] LABS: Alanine Aminotransferase 65 U/L (6-50); Albumin Level 3.4 g/dL (3.5-5.1); Alkaline Phosphatase 115 U/L (38-126); Anion Gap 16 mmol/L (4-12); Aspartate Amino Transferase 117 U/L (17-59); Bilirubin,Total 0.7 mg/dL (0.2-1.3); Blood Urea Nitrogen 101 mg/dL (9-20); Calcium 7.2 mg/dL (8.4-10.2); Carbon Dioxide 19 mmol/L (22-30); Chloride 103 mmol/L (98-107); Estimated CRCL calculation 9 ml/min; Estimated Glomerular Filt Rate 9; Glucose 157 mg/dL (65-110); Magnesium 2.7 mg/dL (1.6-2.3); Phosphorus 5.2 mg/dL (2.5-4.5); Potassium 3.5 mmol/L (3.4-5.0); Sodium 138 mmol/L (137-145)
[2024-05-14] MEDS: ALBUMIN HUMAN 25% 25 GM/100 ML 100 ML IVPB (05:13)
[2024-05-14] MEDS: LEVOTHYROXINE SODIUM 75 MCG TABLET PO (05:17)
[2024-05-14 05:41] LABS: Hepatitis B Surface Antigen Negative (Negative)
[2024-05-14 05:59] LABS: Hepatitis B Surface Anti Res Negative
[2024-05-14 06:04] LABS: Alveolar/Arterial O2 Gradient 194.4 mmHg; Base Excess ABG -6.2 mEq/l (+/-2.0); Carboxyhemoglobin 0.2 % THb (0-2.0); Fractional Inspired Oxygen 40 %; HCO3 ABG 16.9 mEq/l (22.0-26.0); Methemoglobin ABG 0.3 %THb (0-1.5); Oxygen Content ABG 14.7 %vol (16.0-22.0); Oxygen Saturation ABG 92.1 % (95.0-100.0); Oxyhemoglobin 89.9 % THb (90.0-100.0); PCO2 ABG 26.6 mmHg (35.0-45.0); PO2 ABG 60.2 mmHg (80.0-100.0); Reduced Hemoglobin 9.6 %THb (0-5.0); Total Hemoglobin 11.6 g/dL (12.0-18.0); pH ABG 7.421 (7.350-7.450)
[2024-05-14 06:05] LABS: Modified Allen's Test Pass
[2024-05-14 06:06] LABS: Device BIPAP; Inspiratory Pressure 12 cmH2O; Site Drawn RIGHT RADIAL
[2024-05-14 06:07] LABS: Expiratory Pressure 6 cmH2O
[2024-05-14] MEDS: FLUTICASONE/UMECLIDIN/VILANTER 100-62.5-25 MCG ELLIPTA 1 PUFF INHALATION (08:01)
--- NOTE | 2024-05-14 08:13 | PM.PNCARD ---
Progress Note: A&P Assessment and Plan (1) Syncope: Code(s): R55 - Syncope and collapse Status: Acute Assessment and Plan: Probably due to septic shock. (2) Multifocal pneumonia: Code(s): J18.9 - Pneumonia, unspecified organism Status: Acute Assessment and Plan: On antibiotics as per hospitalist. (3) Acute kidney injury: Code(s): N17.9 - Acute kidney failure, unspecified Status: Acute Assessment and Plan: Probably due to septic shock. (4) Tobacco dependence: Code(s): F17.200 - Nicotine dependence, unspecified, uncomplicated Status: Acute Assessment and Plan: Counseled regarding smoking cessation. (5) Hypertension: Code(s): I10 - Essential (primary) hypertension Status: Acute Assessment and Plan: Stable, low normal off Levophed drip. Monitor. (6) Elevated troponin: Code(s): R79.89 - Other specified abnormal findings of blood chemistry Status: Acute Assessment and Plan: Troponin peaked at .102 and trending down. Due to septic shock, pneumonia, acute renal failure. Doubt ACS without chest pains, no EKG ST changes. (7) Systolic dysfunction: Code(s): I51.9 - Heart disease, unspecified Status: Acute Assessment and Plan: Appears euvolemic. 05/12/24 Echo: TDS. Mild LVE, EF 35-40%, mild LVH, grade I diastolic dysfunction, mild LAE, trace MR. Will start HF medication such as beta liss when BP stabilizes of vasopressor, and John or ARB or Entresto if kidney function stabilizes. (8) Transaminitis: Code(s): R74.01 - Elevation of levels of liver transaminase levels Status: Acute Assessment and Plan: Hold Rosuvastatin. Subjective Date/time seen: 05/14/24 08:13 Interval history: No chest pain or sob. Exam Const: General: cooperative, healthy appearing and comfortable Orientation/consciousness: oriented to person, oriented to place and oriented to time Resp: Auscultation: no crackles, no rales, no rhonchi, no wheezes and diminished lung sounds Cardio: Rate: regular rate Rhythm: regular rhythm Heart sounds: no murmurs Peripheral pulses: dorsalis pedis present Neuro: General: oriented to person, oriented to place and oriented to time Extrem: Right lower extremity: no edema Left lower extremity: no edema Objective Data Vital Signs Vital Signs: Vital Signs - 24 hr 05/13/24 08:46 05/13/24 08:46 05/13/24 09:00 Temperature Pulse Rate 77 77 74 Respiratory Rate 22 H 22 H 20 Blood Pressure Pulse Oximetry 94 Oxygen Delivery High Flow Therapy with Na Oxygen Flow Rate 45 Fraction of Inspired Oxygen 70 05/13/24 10:03 05/13/24 10:14 05/13/24 10:00 Temperature Pulse Rate 74 76 78 Respiratory Rate 30 H Blood Pressure Pulse Oximetry 97 96 Oxygen Delivery BiPAP BiPAP Oxygen Flow Rate Fraction of Inspired Oxygen 05/13/24 10:00 05/13/24 10:41 05/13/24 12:00 Temperature 97.8 F Pulse Rate 75 77 84 Respiratory Rate 22 H 19 Blood Pressure 122/61 Pulse Oximetry 98 97 95 Oxygen Delivery BiPAP High Flow Therapy with Na Oxygen Flow Rate 45 Fraction of Inspired Oxygen 70 05/13/24 12:00 05/13/24 12:00 05/13/24 14:04 Temperature 97.4 F L Pulse Rate 84 84 71 Respiratory Rate 19 20 Blood Pressure 118/83 Pulse Oximetry 95 95 Oxygen Delivery BiPAP Oxygen Flow Rate Fraction of Inspired Oxygen 05/13/24 14:04 05/13/24 14:04 05/13/24 14:00 Temperature Pulse Rate 71 71 73 Respiratory Rate 20 20 Blood Pressure Pulse Oximetry 95 Oxygen Delivery BiPAP Oxygen Flow Rate Fraction of Inspired Oxygen 40 05/13/24 14:00 05/13/24 14:19 05/13/24 16:00 Temperature 97.3 F L Pulse Rate 73 76 74 Respiratory Rate 22 H 20 20 Blood Pressure 117/64 Pulse Oximetry 95 96 Oxygen Delivery BiPAP Oxygen Flow Rate Fraction of Inspired Oxygen 40 05/13/24 16:00 05/13/24 16:00 05/13/24 18:00 Temperature 97.3 F L Pulse Rate 76 74 79 Respiratory Rate 20 Blood Pressure 117/59 L Pulse Oximetry 96 Oxygen Delivery Oxygen Flow Rate Fraction of Inspired Oxygen 05/13/24 18:00 05/13/24 20:33 05/13/24 20:34 Temperature 97.2 F L Pulse Rate 72 72 75 Respiratory Rate 20 24 H 20 Blood Pressure 131/83 Pulse Oximetry 97 97 Oxygen Delivery BiPAP Oxygen Flow Rate Fraction of Inspired Oxygen 05/13/24 20:00 05/13/24 20:00 05/13/24 20:00 Temperature 97.7 F Pulse Rate 69 69 Respiratory Rate 20 Blood Pressure 117/67 Pulse Oximetry 97 Oxygen Delivery BiPAP Oxygen Flow Rate Fraction of Inspired Oxygen 40 05/13/24 22:00 05/13/24 22:00 05/14/24 00:00 Temperature 97.8 F Pulse Rate 69 69 Respiratory Rate 18 Blood Pressure 121/62 Pulse Oximetry 95 Oxygen Delivery BiPAP Oxygen Flow Rate Fraction of Inspired Oxygen 40 05/14/24 00:00 05/14/24 00:00 05/14/24 01:20 Temperature 97.6 F Pulse Rate 72 72 Respiratory Rate 18 Blood Pressure 119/65 Pulse Oximetry 96 96 Oxygen Delivery High Flow Therapy with Na Oxygen Flow Rate 45 Fraction of Inspired Oxygen 70 05/14/24 02:00 05/14/24 02:00 05/14/24 03:19 Temperature 97.9 F Pulse Rate 79 79 79 Respiratory Rate 20 27 H Blood Pressure 113/61 Pulse Oximetry 92 Oxygen Delivery Oxygen Flow Rate Fraction of Inspired Oxygen 05/14/24 00:15 05/14/24 03:23 05/14/24 03:25 Temperature Pulse Rate 78 79 78 Respiratory Rate 20 21 H 24 H Blood Pressure Pulse Oximetry 96 94 Oxygen Delivery BiPAP BiPAP Oxygen Flow Rate Fraction of Inspired Oxygen 05/14/24 04:00 05/14/24 04:00 05/14/24 04:00 Temperature 97.2 F L Pulse Rate 76 81 Respiratory Rate 19 Blood Pressure 148/65 H Pulse Oximetry 95 Oxygen Delivery BiPAP Oxygen Flow Rate Fraction of Inspired Oxygen 40 05/14/24 06:00 05/14/24 06:00 05/14/24 08:00 Temperature 97.2 F L Pulse Rate 86 86 Respiratory Rate 20 Blood Pressure 110/70 Pulse Oximetry 95 95 Oxygen Delivery High Flow Therapy with Na Oxygen Flow Rate 45 Fraction of Inspired Oxygen 70 05/14/24 08:00 05/14/24 08:08 Temperature Pulse Rate 83 90 Respiratory Rate 20 20 Blood Pressure Pulse Oximetry Oxygen Delivery Oxygen Flow Rate Fraction of Inspired Oxygen Intake/Output Intake/Output: Intake & Output 05/11/24 05/12/24 05/13/24 05/14/24 23:59 23:59 23:59 23:59 Intake Total 923.7 2383.3 2770 270 Output Total 120 300 250 Balance 923.7 2263.3 2470 20 Meds/Results Medications: Active Medications Generic Name Dose Route Start Last Admin Trade Name Freq PRN Reason Stop Dose Admin Acetaminophen 650 mg 05/11/24 18:35 05/12/24 08:08 Acetaminophen 325 Mg Tablet PO 650 mg Q4H PRN Administration Mild Pain (1-3) or Fever Albuterol/Ipratropium 3 ml 05/12/24 02:00 05/14/24 08:01 Ipratropium 0.5 Mg/Albuterol Sulfate 2.5 Mg Ampul.Neb 3 Ml INHALATION 3 ml Q6HRT SANGEETA Administration Aspirin 81 mg 05/12/24 09:00 05/13/24 08:56 Aspirin 81 Mg Enteric Tablet PO 81 mg DAILY SANGEETA Administration Clopidogrel Bisulfate 75 mg 05/12/24 09:00 05/13/24 08:57 Clopidogrel Bisulfate 75 Mg Tablet PO 75 mg DAILY SANGEETA Administration Dextrose 12.5 gm 05/11/24 22:22 Dextrose 50% 25 Gm/50 Ml Syringe IV PUSH PRN PRN Hypoglycemia Protocol Famotidine 20 mg 05/14/24 09:00 Famotidine 20 Mg/2 Ml Vial IV PUSH DAILY SANGEETA Fluticasone/Umeclidinium/Vilanterol 1 puff 05/12/24 08:00 05/14/24 08:01 Fluticasone/Umeclidin/Vilanter 100-62.5-25 Mcg Ellipta INHALATION 1 puff DAILYRT SANGEETA Administration Glucagon 1 mg 05/11/24 22:22 Glucagon For Inj 1 Mg Vial IM PRN PRN Hypoglycemia Protocol Glucose 15 gm 05/11/24 22:22 Glucose Oral Gel 15 Gm Of Glucse In 37.5 Gm Tube PO PRN PRN Hypoglycemia Protocol Guaifenesin 1,200 mg 05/12/24 09:00 05/13/24 20:44 Guaifenesin 12 Hr 600 Mg Tabcr PO 1,200 mg Q12HR SANGEETA Administration Heparin Sodium (Porcine) 5,000 units 05/12/24 09:00 05/13/24 20:44 Heparin Sodium 5,000 Units/Ml Vial SUB-Q 5,000 units Q12HR SANGEETA Administration Hydrocortisone Sodium Succinate 50 mg 05/12/24 08:30 05/14/24 04:57 Hydrocortisone Sodium Succinate 100 Mg/2 Ml Vial IV PUSH 50 mg Q6HR SANGEETA Administration Dextrose 1,000 mls @ 100 mls/hr 05/11/24 22:22 Dextrose 5% 1,000 Ml IVPB PRN PRN Hypoglycemia Protocol Cefepime HCl 1 gm in 50 mls @ 100 mls/hr 05/13/24 06:00 05/14/24 05:28 Maxipime 1 Gm/Ns 50 Ml IVPB Infused Q12H SANGEETA Infusion Doxycycline Hyclate 100 mg in 100 mls @ 100 mls/hr 05/12/24 21:00 05/13/24 21:44 Vibramycin 100 Mg/Ns 100 Ml IVPB Infused Q12H SANGEETA Infusion Vancomycin HCl 1,250 mg in 250 mls @ 166.667 mls/hr 05/14/24 10:00 Vancomycin 1,250 Mg/Ns 250 Ml IVPB 05/14/24 11:29 ONCE ONE Insulin Aspart 4 - 8 units 05/12/24 08:25 05/14/24 05:17 Insulin Aspart (*Bkc) 100 Units/Ml SUB-Q Not Given Q4H SANGEETA Protocol Levothyroxine Sodium 75 mcg 05/12/24 06:30 05/14/24 05:17 Levothyroxine Sodium 75 Mcg Tablet PO 75 mcg DAILY@0630 SANGEETA Administration Ondansetron HCl 4 mg 05/11/24 18:35 Ondansetron Inj 4 Mg/2 Ml Vial IV PUSH Q4H PRN Nausea Rosuvastatin Calcium 40 mg 05/12/24 09:00 05/13/24 08:58 Rosuvastatin 20 Mg Tablet PO 40 mg DAILY SANGEETA Administration Vancomycin HCl 1 each 05/11/24 18:14 Vancomycin For Acute Kidney Injury IVPB PRN PRN Vancomycin Protocol Radiology Results: ITS Impressions Chest/Abdomen/Pelvis CT 05/11/24 18:29 IMPRESSION: Extensive right upper lobe, middle lobe and left lower lobe consolidating pneumonia, with mild mediastinal reactive lymph node enlargement Occasional pulmonary nodules, likely related to pulmonary granulomatous disease 29 x 31 mm left adrenal low-attenuation mass, likely due to adrenal adenoma, less likely metastasis Normal appendix Minimal sigmoid diverticulosis; no evidence of diverticulitis Moderate prostatomegaly 2. Fusiform infrarenal abdominal aortic aneurysms, measuring up to 4 cm Central venous right common femoral catheter in right common femoral vein Renal Ultrasound 05/12/24 15:15 IMPRESSION: Unremarkable renal sonogram findings. Carotid Doppler Study 05/12/24 15:34 IMPRESSION: 1. <50% stenosis in the right internal carotid artery. 2. 50-69% stenosis in the left internal carotid artery. Chest X-Ray 05/14/24 06:05 IMPRESSION: 1. Diffuse lung disease with slight improvement on the right and worsening on the left, consistent with pneumonia. 2. Small left pleural effusion. Labs Labs: Laboratory Results - last 24 hr 05/13/24 05/13/24 05/13/24 11:46 17:07 20:43 WBC RBC Hgb Hct MCV MCH MCHC RDW Plt Count MPV Immature Gran % (Auto) Neut % (Auto) Lymph % (Auto) [place] % (Auto) Eos % (Auto) Baso % (Auto) Lymph # (Auto) [place] # (Auto) Eos # (Auto) Baso # (Auto) Abs Immat Gran (auto) Absolute Neuts (auto) Absolute Nucleated RBC Nucleated RBC % Platelet Estimate Ovalocytes Schistocytes Puncture Site ABG pH ABG pCO2 ABG pO2 ABG PO2/FiO2 Ratio ABG HCO3 ABG O2 Saturation ABG O2 Content ABG Base Excess A-a Gradient Oxyhemoglobin Carboxyhemoglobin Methemoglobin Reduced Hemoglobin Total Hemoglobin O2 Delivery Device O2 Liters/Min FiO2 Expiratory Pressure Inspiratory Pressure Sodium Potassium Chloride Carbon Dioxide Anion Gap BUN Creatinine Estim Creat Clear Calc Estimated GFR Glucose POC Capillary Glucose 205 H 143 H 217 H Lactic Acid Calcium Phosphorus Magnesium Total Bilirubin AST ALT Alkaline Phosphatase Total Protein Albumin Random Vancomycin Hep Bs Antigen Hep Bs Antibody 05/13/24 05/13/24 05/14/24 21:50 23:30 04:33 WBC 16.5 H RBC 3.00 L Hgb 8.9 L Hct 25.0 L MCV 83.3 MCH 29.7 MCHC 35.6 RDW 14.1 Plt Count 211 MPV 9.7 Immature Gran % (Auto) 1.3 H Neut % (Auto) 90.2 H Lymph % (Auto) 3.0 L [place] % (Auto) 5.4 Eos % (Auto) 0.0 Baso % (Auto) 0.1 L Lymph # (Auto) 0.49 L [place] # (Auto) 0.9 H Eos # (Auto) 0.0 Baso # (Auto) 0.0 Abs Immat Gran (auto) 0.21 H Absolute Neuts (auto) 14.9 H Absolute Nucleated RBC 0.000 Nucleated RBC % 0.0 Platelet Estimate Adequate Ovalocytes 1+ Schistocytes None seen Puncture Site ABG pH ABG pCO2 ABG pO2 ABG PO2/FiO2 Ratio ABG HCO3 ABG O2 Saturation ABG O2 Content ABG Base Excess A-a Gradient Oxyhemoglobin Carboxyhemoglobin Methemoglobin Reduced Hemoglobin Total Hemoglobin O2 Delivery Device O2 Liters/Min FiO2 Expiratory Pressure Inspiratory Pressure Sodium 138 Potassium 3.5 Chloride 103 Carbon Dioxide 19 L Anion Gap 16 H BUN 101 H D Creatinine 6.20 H Estim Creat Clear Calc 9 Estimated GFR 9 L Glucose 157 H POC Capillary Glucose 182 H Lactic Acid 1.4 Calcium 7.2 L Phosphorus 5.2 H Magnesium 2.7 H Total Bilirubin 0.7 AST 117 H ALT 65 H Alkaline Phosphatase 115 Total Protein 6.0 L Albumin 3.4 L Random Vancomycin 19.0 Hep Bs Antigen Negative Hep Bs Antibody Negative 05/14/24 05:49 WBC RBC Hgb Hct MCV MCH MCHC RDW Plt Count MPV Immature Gran % (Auto) Neut % (Auto) Lymph % (Auto) [place] % (Auto) Eos % (Auto) Baso % (Auto) Lymph # (Auto) [place] # (Auto) Eos # (Auto) Baso # (Auto) Abs Immat Gran (auto) Absolute Neuts (auto) Absolute Nucleated RBC Nucleated RBC % Platelet Estimate Ovalocytes Schistocytes Puncture Site Right radial ABG pH 7.421 ABG pCO2 26.6 L ABG pO2 60.2 L ABG PO2/FiO2 Ratio 1.50 ABG HCO3 16.9 L ABG O2 Saturation 92.1 L ABG O2 Content 14.7 L ABG Base Excess -6.2 A-a Gradient 194.4 Oxyhemoglobin 89.9 L Carboxyhemoglobin 0.2 Methemoglobin 0.3 Reduced Hemoglobin 9.6 H Total Hemoglobin 11.6 L O2 Delivery Device Bipap O2 Liters/Min Not Reportable FiO2 40 Expiratory Pressure 6 Inspiratory Pressure 12 Sodium Potassium Chloride Carbon Dioxide Anion Gap BUN Creatinine Estim Creat Clear Calc Estimated GFR Glucose POC Capillary Glucose Lactic Acid Calcium Phosphorus Magnesium Total Bilirubin AST ALT Alkaline Phosphatase Total Protein Albumin Random Vancomycin Hep Bs Antigen Hep Bs Antibody
[2024-05-14] MEDS: ASPIRIN 81 MG ENTERIC TABLET PO (08:38)
[2024-05-14] MEDS: CLOPIDOGREL BISULFATE 75 MG TABLET PO (08:38)
[2024-05-14] MEDS: guaiFENesin 12 HR 600 MG TABCR 1200 MG PO ×2 (08:39→20:45)
[2024-05-14] MEDS: DOXYCYCLINE 100 MG/NS 100 ML 100 MG/100 ML BAG IVPB (08:39)
[2024-05-14] MEDS: HEPARIN SODIUM 5,000 UNITS/ML VIAL 5000 UNITS SUB-Q ×2 (08:39→20:45)
[2024-05-14] MEDS: FAMOTIDINE 20 MG/2 ML VIAL IV PUSH (08:39)
[2024-05-14 08:53] LABS: Glucose Point of Care 170 mg/dl (65-105)
[2024-05-14] MEDS: VANCOMYCIN 1,250 MG/NS 250 ML 1,250 MG/250 ML BAG 166.67 MG IVPB (09:41)
[2024-05-14 11:26] LABS: Glucose Point of Care 158 mg/dl (65-105)
--- NOTE | 2024-05-14 11:31 | P.PNNP_ITS ---
Progress Note: A&P Assessment and Plan (1) Acute kidney injury: Code(s): N17.9 - Acute kidney failure, unspecified Status: Acute Assessment and Plan: * as noted on admission with a creatinine of 4.4mg/dl * unfortunately, only recent labs to compare to are from 2019 (see #2) * evaluation to date noted: * admission CT scan without obstruction * urine electrolytes prerenal * urine eosinophils negative * UA with blood and moderate proteinuria * CPK mildly elevated (probably not enough to affect kidney function) * suspect insult due several issues: * hemodynamic instability/shock * sepsis/infection * prerenal factors * diuretic therapy [employer] * profound hypoxia * remains at risk for [employer]/dialysis * trial of diuretics today (bumex 2mg IV x 1) * follow repeat labs and UOP (2) Stage 3a chronic kidney disease: Code(s): N18.31 - Chronic kidney disease, stage 3a Status: Chronic Assessment and Plan: * last creatinine noted at 1.4mg/dl (although this was from 2019) * presumably due to HTN, vascular disease (LE vascular disease, carotid stenosis, AAA, hyperlipidemia), diabetes, COPD/CJ and age-related change * cannot discount an element of CKD progression.... (3) Septic shock: Code(s): A41.9 - Sepsis, unspecified organism; R65.21 - Severe sepsis with septic shock Status: Acute Assessment and Plan: * thought to be secondary to pneumonia and possibly UTI * s/p aggressive IVF resuscitation * off vasopressor therapy at this time * follow culture data - 05/11 blood cultures with Streptococcus pneumoniae * urine culture negative * follow repeat cultures * on antibiotic therapy * follow trend of hemodynamics (4) Acute respiratory failure: Code(s): J96.00 - Acute respiratory failure, unspecified whether with hypoxia or hypercapnia Status: Acute Assessment and Plan: * due to severe/significant pneumonia as noted by admission imaging * no respiratory distress but noted profound hypoxia on admission * complicated by known history of COPD * using BiPAP and high-flow oxygen mask to maintain oxygen saturations with ongoing weaning noted * at risk for intubation and mechanical ventilation * continue bronchodilators and antibiotic therapy * Echo results noted * follow respiratory status (5) Systolic CHF: Code(s): I50.20 - Unspecified systolic (congestive) heart failure Status: Acute Assessment and Plan: * acute versus chronic? * Echo results noted: * left ventricular systolic function is moderately globally reduced - estimated at 35-40% * left ventricular diastolic function is grade I diastolic dysfunction * mild aortic valve sclerosis * trace mitral valve regurgitation * volume status appears stable * Cardiology following (6) Multifocal pneumonia: Code(s): J18.9 - Pneumonia, unspecified organism Status: Acute Assessment and Plan: * as noted by admission imaging * continue respiratory support * culture data noted * on antibiotics (7) Anemia: Qualifiers: Anemia type: unspecified type Qualified Code(s): D64.9 - Anemia, unspec ified Code(s): D64.9 - Anemia, unspecified Status: Acute Assessment and Plan: * due to LEIA, CKD, and acute illness * may need to consider inpatient Retacrit * follow trend of H/H (8) Chronic obstructive pulmonary disease: Qualifiers: COPD type: emphysema Emphysema type: unspecified Qualified Code(s): J43.9 - Emphysema, unspecified Code(s): J44.9 - Chronic obstructive pulmonary disease, unspecified Status: Chronic Assessment and Plan: * known history * see #4 (9) Type 2 diabetes mellitus: Code(s): E11.9 - Type 2 diabetes mellitus without complications Status: Acute Assessment and Plan: * follow accu-cheks * glycemic control per carton marker machine/hospitalists Another long extensive discussion (greater than 20 minutes) with the patient regarding his worsening renal function and diminished urine output with a concern that he may require renal replacement therapy /dialysis. He is aware of this possibility and remains hopeful that his kidney function will improve with ongoing supportive therapy. We will give a trial of IV diuretics today to see if we can stimulate urine production and follow the trend of his repeat labs. Will continue to follow. Subjective Date/time seen: 05/14/24 11:31 Interval history: Follow-up for acute kidney injury/acute renal failure on chronic kidney disease. Noted marked worsening of renal function/creatinine in the last 24 hours with associated diminished urine output; breathing/respiratory status remains relatively stable with ongoing weaning of supplemental oxygen as tolerated; remains hemodynamically stable at this time; no acute distress noted Exam Narrative: General: elderly but WD/WN male in NAD Heart: normal S1 and S2; no rub Lungs: coarse with a few scattered crackles Abdomen: soft, nontender, nondistended, positive bowel sounds Extremities: no cyanosis or clubbing; no edema Skin: warm and intact Objective Data Vital Signs Vital Signs: Vital Signs Temp Pulse Resp BP Pulse Ox O2 Del Method O2 Flow Rate 05/14/24 11:21 98.0 F 80 24 H 131/85 95 05/14/24 10:00 97.4 F L 86 16 141/80 H 95 05/14/24 10:00 86 05/14/24 09:45 91 High Flow Therapy with Na 40 05/14/24 08:00 83 05/14/24 09:30 96 High Flow Therapy with Na 45 05/14/24 08:50 96 45 05/14/24 08:00 90 20 95 High Flow Therapy with Na 45 05/14/24 08:00 97.4 F L 82 23 H 112/87 95 05/14/24 08:08 90 20 05/14/24 08:00 83 20 05/14/24 08:00 95 High Flow Therapy with Na 45 05/14/24 06:00 97.2 F L 86 20 110/70 95 05/14/24 06:00 86 05/14/24 04:00 81 05/14/24 04:00 97.2 F L 76 19 148/65 H 95 05/14/24 04:00 BiPAP 05/14/24 03:25 78 24 H 05/14/24 03:23 79 21 H 94 BiPAP 05/14/24 00:15 78 20 96 BiPAP 05/14/24 03:19 79 27 H 05/14/24 02:00 97.9 F 79 20 113/61 92 05/14/24 02:00 79 05/14/24 01:20 96 High Flow Therapy with Na 45 05/14/24 00:00 97.6 F 72 18 119/65 96 05/14/24 00:00 72 05/14/24 00:00 BiPAP 05/13/24 22:00 97.8 F 69 18 121/62 95 05/13/24 22:00 69 05/13/24 20:00 BiPAP 05/13/24 20:00 97.7 F 69 20 117/67 97 05/13/24 20:00 69 05/13/24 20:34 75 20 97 BiPAP 05/13/24 20:33 72 24 H 05/13/24 18:00 97.2 F L 72 20 131/83 97 05/13/24 18:00 79 Intake/Output Intake/Output: Intake & Output 05/11/24 05/12/24 05/13/24 05/14/24 23:59 23:59 23:59 23:59 Intake Total 923.7 2383.3 2770 830 Output Total 120 300 250 Balance 923.7 2263.3 2470 580 Meds/Results Medications: Active Medications Generic Name Dose Route Start Last Admin Trade Name Freq PRN Reason Stop Dose Admin Acetaminophen 650 mg 05/11/24 18:35 05/12/24 08:08 Acetaminophen 325 Mg Tablet PO 650 mg Q4H PRN Administration Mild Pain (1-3) or Fever Albuterol/Ipratropium 3 ml 05/12/24 02:00 05/14/24 13:57 Ipratropium 0.5 Mg/Albuterol Sulfate 2.5 Mg Ampul.Neb 3 Ml INHALATION 3 ml Q6HRT SANGEETA Administration Aspirin 81 mg 05/12/24 09:00 05/14/24 08:38 Aspirin 81 Mg Enteric Tablet PO 81 mg DAILY SANGEETA Administration Clopidogrel Bisulfate 75 mg 05/12/24 09:00 05/14/24 08:38 Clopidogrel Bisulfate 75 Mg Tablet PO 75 mg DAILY SANGEETA Administration Dextrose 12.5 gm 05/11/24 22:22 Dextrose 50% 25 Gm/50 Ml Syringe IV PUSH PRN PRN Hypoglycemia Protocol Doxycycline Hyclate 100 mg 05/14/24 21:00 Doxycycline Hyclate 100 Mg Tablet PO 05/15/24 21:01 Q12HR SANGEETA Famotidine 20 mg 05/14/24 09:00 05/14/24 08:39 Famotidine 20 Mg/2 Ml Vial IV PUSH 20 mg DAILY SANGEETA Administration Fluticasone/Umeclidinium/Vilanterol 1 puff 05/12/24 08:00 05/14/24 08:01 Fluticasone/Umeclidin/Vilanter 100-62.5-25 Mcg Ellipta INHALATION 1 puff DAILYRT SANGEETA Administration Glucagon 1 mg 05/11/24 22:22 Glucagon For Inj 1 Mg Vial IM PRN PRN Hypoglycemia Protocol Glucose 15 gm 05/11/24 22:22 Glucose Oral Gel 15 Gm Of Glucse In 37.5 Gm Tube PO PRN PRN Hypoglycemia Protocol Guaifenesin 1,200 mg 05/12/24 09:00 05/14/24 08:39 Guaifenesin 12 Hr 600 Mg Tabcr PO 1,200 mg Q12HR SANGEETA Administration Heparin Sodium (Porcine) 5,000 units 05/12/24 09:00 05/14/24 08:39 Heparin Sodium 5,000 Units/Ml Vial SUB-Q 5,000 units Q12HR SANGEETA Administration Hydrocortisone Sodium Succinate 50 mg 05/12/24 08:30 05/14/24 11:46 Hydrocortisone Sodium Succinate 100 Mg/2 Ml Vial IV PUSH 50 mg Q6HR SANGEETA Administration Dextrose 1,000 mls @ 100 mls/hr 05/11/24 22:22 Dextrose 5% 1,000 Ml IVPB PRN PRN Hypoglycemia Protocol Ceftriaxone Sodium 2 gm in 100 mls @ 200 mls/hr 05/14/24 10:15 05/14/24 12:31 Rocephin 2 Gm/Ns 100 Ml IVPB Infused QAM SANGEETA Infusion Insulin Aspart 4 - 8 units 05/12/24 08:25 05/14/24 16:15 Insulin Aspart (*Bkc) 100 Units/Ml SUB-Q Not Given Q4H SANGEETA Protocol Levothyroxine Sodium 75 mcg 05/12/24 06:30 05/14/24 05:17 Levothyroxine Sodium 75 Mcg Tablet PO 75 mcg DAILY@0630 SANGEETA Administration Ondansetron HCl 4 mg 05/11/24 18:35 Ondansetron Inj 4 Mg/2 Ml Vial IV PUSH Q4H PRN Nausea Rosuvastatin Calcium 40 mg 05/12/24 09:00 05/13/24 08:58 Rosuvastatin 20 Mg Tablet PO 40 mg DAILY SANGEETA Administration Radiology Results: ITS Impressions Chest/Abdomen/Pelvis CT 05/11/24 18:29 IMPRESSION: Extensive right upper lobe, middle lobe and left lower lobe consolidating pneumonia, with mild mediastinal reactive lymph node enlargement Occasional pulmonary nodules, likely related to pulmonary granulomatous disease 29 x 31 mm left adrenal low-attenuation mass, likely due to adrenal adenoma, less likely metastasis Normal appendix Minimal sigmoid diverticulosis; no evidence of diverticulitis Moderate prostatomegaly 2. Fusiform infrarenal abdominal aortic aneurysms, measuring up to 4 cm Central venous right common femoral catheter in right common femoral vein Renal Ultrasound 05/12/24 15:15 IMPRESSION: Unremarkable renal sonogram findings. Carotid Doppler Study 05/12/24 15:34 IMPRESSION: 1. <50% stenosis in the right internal carotid artery. 2. 50-69% stenosis in the left internal carotid artery. Chest X-Ray 05/14/24 06:05 IMPRESSION: 1. Diffuse lung disease with slight improvement on the right and worsening on the left, consistent with pneumonia. 2. Small left pleural effusion. Labs Labs: Laboratory Tests 05/14/24 04:33 05/14/24 04:33 Lactic Acid 1.4 Calcium 7.2 L Phosphorus 5.2 H Magnesium 2.7 H Total Bilirubin 0.7 AST 117 H ALT 65 H Alkaline Phosphatase 115 Total Protein 6.0 L Albumin 3.4 L Microbiology 05/13/24 10:30 Blood Blood Culture - Preliminary 05/13/24 10:21 Blood Blood Culture - Preliminary 05/11/24 16:32 Blood Blood Culture - Final Streptococcus pneumoniae 05/12/24 01:13 Unspecified Urine Culture - Final
[2024-05-14] MEDS: cefTRIAXone 2 GM/NS 100 ML 2 GM/100 ML BAG IVPB (11:47)
--- NOTE | 2024-05-14 12:24 | WPDINTPN ---
Progress Note: A&P Assessment and Plan (1) Acute respiratory failure: Code(s): J96.00 - Acute respiratory failure, unspecified whether with hypoxia or hypercapnia Status: Acute Assessment and Plan: 05/12: Patient has baseline COPD and now presented with pneumonia. This morning he is on Airvo at 98% FiO2 along with non-rebreather mask. Although he does not appear in respiratory distress he has significant hypoxia. spoke with the patient and started him on a trial of BiPAP to see if nippv helps and allows us to wean down FiO2. - spoke to the patient and mentioned that he may need intubation and mechanical ventilation if he does not improve or continues to deteriorate. Patient is agreeable to intubation if needed. At this time patient is not in respiratory distress and is maintaining saturations. He is also not CO2 retainer as per his last ABG. -chest x-ray and ABGs reviewed this morning -currently on high-flow 35 L flow rate and 45% FiO2, intermittently on BiPAP because he prefers BiPAP. -continue bronchodilators -continue steroids for pneumonia -continue antibiotics as below -will discontinue IV fluids -PT/OT to follow, up in chair as tolerated (2) Septic shock: Code(s): A41.9 - Sepsis, unspecified organism; R65.21 - Severe sepsis with septic shock Status: Acute Assessment and Plan: Septic shock secondary to pneumonia and UTI Patient has received IV fluid bolus and is now on maintenance IV fluids. Cautious IV fluids to minimize risk of volume overload Off pressors Continue Hydrocortisone for pneumonia 05/11: Blood cultures growing Streptococcus pneumonia 2/2 bottles, pansensitive 05/12: Urine culture NO growth -05/14: will discontinue vancomycin and cefepime -05/14: Started patient ceftriaxone, continue oral doxycycline - urine Legionella and pneumococcal antigen pending Lactic acid has normalized 05/12/2024: Echocardiogram Summary 1. Technically suboptimal study due to poor sonographic images. 2. Definity contrast administered improved wall motion interpretation. 3. Left ventricular chamber dimension is mildly enlarged. 4. Left ventricular systolic function is moderately globally reduced, estimated at 35-40%. 5. There is mild concentric increased left ventricular wall thickness. 6. The left ventricular diastolic function is grade I diastolic dysfunction. 7. Left atrial chamber dimension is mildly enlarged. 8. There is mild aortic valve sclerosis. 9. There is trace mitral valve regurgitation. (3) Multifocal pneumonia: Code(s): J18.9 - Pneumonia, unspecified organism Status: Acute Assessment and Plan: See above (4) Acute kidney injury: Code(s): N17.9 - Acute kidney failure, unspecified Status: Acute Assessment and Plan: He presented with creatinine of 4.4. Baseline unknown as last recorded creatinine is from 2019 -CT scan did not show any stone or hydronephrosis This is likely secondary to sepsis and shock which may have progressed to ATN -patient significantly positive, will discontinue maintenance IV fluid -status post albumin for volume expansion -Monitor urine output electrolytes and creatinine -appreciate Nephrology evaluation recommendation -will discuss with Nephrology regarding diuresis (5) Type 2 diabetes mellitus: Code(s): E11.9 - Type 2 diabetes mellitus without complications Status: Acute Assessment and Plan: Sliding scale insulin Continue diabetic diet and heart healthy diet (6) Hypothyroidism: Code(s): E03.9 - Hypothyroidism, unspecified Status: Acute Assessment and Plan: Elevated TSH -continue levothyroxine (7) Elevated troponin: Code(s): R79.89 - Other specified abnormal findings of blood chemistry Status: Acute Assessment and Plan: Mildly elevated troponin in the setting of septic shock and acute kidney failure likely to monitor radiated ischemia. Thomas denies any chest pain. -troponins trending down -Continue aspirin Plavix and rosuvastatin -echocardiogram as above (8) Chronic obstructive pulmonary disease: Qualifiers: COPD type: emphysema Emphysema type: unspecified Qualified Code(s): J43.9 - Emphysema, unspecified Code(s): J44.9 - Chronic obstructive pulmonary disease, unspecified Status: Acute Assessment and Plan: Continue NIPPV, steroids, bronchodilators (9) Electrolyte abnormality: Code(s): E87.8 - Other disorders of electrolyte and fluid balance, not elsewhere classified Status: Acute Assessment and Plan: Magnesium is normalized after replacement Plan DVT prophylaxis -subcutaneous heparin Stress ulcer prophylaxis -Pepcid daily due to acute kidney injury Nutrition -heart healthy diet Code Status: patient wishes to be full code Total Critical Care Time: 32 minutes -may transfer out of the ICU if okay with hospitalist team -discussed with patient and his family at bedside updated them with patient's condition and plan of care. I answered all questions. They are aware that he is on antibiotics for his pneumonia. He also aware that his kidney functions have taken ahead with unknown baseline at this time. The aware that nephrology is following the patient Due to a high probability of clinically significant, life threatening deterioration, the patient required my highest level of preparedness to intervene emergently and I personally spent this critical care time directly and personally managing the patient. This critical care time included obtaining a history; examining the patient; pulse oximetry; ordering and review of studies; arranging urgent treatment with development of a management plan; evaluation of patient's response to treatment; frequent reassessment; and discussions with other providers. It was exclusive of separately billable procedures and treating other patients and teaching time. Please see Assessment and Plan section and the rest of the note for further information on patient assessment and treatment This dictation may have been done utilizing a voice recognition system. Attempts have been made to correct errors. However, there may be uncorrected grammatical, spelling, and recognitions errors present. Subjective Date/time seen: 05/14/24 12:24 Interval history: Reason for consult: Acute respiratory failure, pneumonia, septic shock, acute kidney injury 05/14/2024: Patient seen and examined the ICU, is awake, alert, on high-flow therapy, able to answer questions appropriately. He wants to go home and be with family for Thanksgiving, he says he is going to come back right after that. I showed him the chest x-ray and did realize how bad his pneumonia is. He has been hemodynamically stable, weaning FiO2, low urine output, worsening creatinine Review of Systems Review of Systems: All systems reviewed & are unremarkable except as noted in HPI and below Exam Narrative: General: Pt is alert awake and in no significant distress Lungs/Chest: l bilateral coarse breathing with crackles but no wheezing, adequate air entry Cardiac: RRR. Normal S1 S2. No murmurs Circulation: Pedal pulses are intact and symmetrical. Abdomen: Normal bowel sounds. Soft. NT. ND. Extremities: No clubbing, cyanosis or edema. Warm : Garcia in place Neurologic: Follows commands. Moves all 4 extremities PERRL AO x3 Skin: No Rash Objective Data Vital Signs Vital Signs: Vital Signs - 24 hr 05/13/24 14:04 05/13/24 14:04 05/13/24 14:04 Temperature Pulse Rate 71 71 71 Respiratory Rate 20 20 20 Blood Pressure Pulse Oximetry 95 95 Oxygen Delivery BiPAP BiPAP Oxygen Flow Rate Fraction of Inspired Oxygen 40 05/13/24 14:00 05/13/24 14:00 05/13/24 14:19 Temperature 97.3 F L Pulse Rate 73 73 76 Respiratory Rate 22 H 20 Blood Pressure 117/64 Pulse Oximetry 95 Oxygen Delivery Oxygen Flow Rate Fraction of Inspired Oxygen 05/13/24 16:00 05/13/24 16:00 05/13/24 16:00 Temperature 97.3 F L Pulse Rate 74 76 74 Respiratory Rate 20 20 Blood Pressure 117/59 L Pulse Oximetry 96 96 Oxygen Delivery BiPAP Oxygen Flow Rate Fraction of Inspired Oxygen 40 05/13/24 18:00 05/13/24 18:00 05/13/24 20:33 Temperature 97.2 F L Pulse Rate 79 72 72 Respiratory Rate 20 24 H Blood Pressure 131/83 Pulse Oximetry 97 Oxygen Delivery Oxygen Flow Rate Fraction of Inspired Oxygen 05/13/24 20:34 05/13/24 20:00 05/13/24 20:00 Temperature 97.7 F Pulse Rate 75 69 69 Respiratory Rate 20 20 Blood Pressure 117/67 Pulse Oximetry 97 97 Oxygen Delivery BiPAP Oxygen Flow Rate Fraction of Inspired Oxygen 05/13/24 20:00 05/13/24 22:00 05/13/24 22:00 Temperature 97.8 F Pulse Rate 69 69 Respiratory Rate 18 Blood Pressure 121/62 Pulse Oximetry 95 Oxygen Delivery BiPAP Oxygen Flow Rate Fraction of Inspired Oxygen 40 05/14/24 00:00 05/14/24 00:00 05/14/24 00:00 Temperature 97.6 F Pulse Rate 72 72 Respiratory Rate 18 Blood Pressure 119/65 Pulse Oximetry 96 Oxygen Delivery BiPAP Oxygen Flow Rate Fraction of Inspired Oxygen 40 05/14/24 01:20 05/14/24 02:00 05/14/24 02:00 Temperature 97.9 F Pulse Rate 79 79 Respiratory Rate 20 Blood Pressure 113/61 Pulse Oximetry 96 92 Oxygen Delivery High Flow Therapy with Na Oxygen Flow Rate 45 Fraction of Inspired Oxygen 70 05/14/24 03:19 05/14/24 00:15 05/14/24 03:23 Temperature Pulse Rate 79 78 79 Respiratory Rate 27 H 20 21 H Blood Pressure Pulse Oximetry 96 94 Oxygen Delivery BiPAP BiPAP Oxygen Flow Rate Fraction of Inspired Oxygen 05/14/24 03:25 05/14/24 04:00 05/14/24 04:00 Temperature 97.2 F L Pulse Rate 78 76 Respiratory Rate 24 H 19 Blood Pressure 148/65 H Pulse Oximetry 95 Oxygen Delivery BiPAP Oxygen Flow Rate Fraction of Inspired Oxygen 40 05/14/24 04:00 05/14/24 06:00 05/14/24 06:00 Temperature 97.2 F L Pulse Rate 81 86 86 Respiratory Rate 20 Blood Pressure 110/70 Pulse Oximetry 95 Oxygen Delivery Oxygen Flow Rate Fraction of Inspired Oxygen 05/14/24 08:00 05/14/24 08:00 05/14/24 08:08 Temperature Pulse Rate 83 90 Respiratory Rate 20 20 Blood Pressure Pulse Oximetry 95 Oxygen Delivery High Flow Therapy with Na Oxygen Flow Rate 45 Fraction of Inspired Oxygen 70 05/14/24 08:00 05/14/24 08:00 05/14/24 08:50 Temperature 97.4 F L Pulse Rate 82 90 Respiratory Rate 23 H 20 Blood Pressure 112/87 Pulse Oximetry 95 95 96 Oxygen Delivery High Flow Therapy with Na Oxygen Flow Rate 45 45 Fraction of Inspired Oxygen 70 50 05/14/24 09:30 05/14/24 08:00 05/14/24 09:45 Temperature Pulse Rate 83 Respiratory Rate Blood Pressure Pulse Oximetry 96 91 Oxygen Delivery High Flow Therapy with Na High Flow Therapy with Na Oxygen Flow Rate 45 40 Fraction of Inspired Oxygen 50 50 05/14/24 10:00 05/14/24 10:00 05/14/24 11:51 Temperature 97.4 F L 98.0 F Pulse Rate 86 86 80 Respiratory Rate 16 24 H Blood Pressure 141/80 H 131/85 Pulse Oximetry 95 95 Oxygen Delivery Oxygen Flow Rate Fraction of Inspired Oxygen 05/14/24 12:00 Temperature Pulse Rate 80 Respiratory Rate 24 H Blood Pressure Pulse Oximetry 95 Oxygen Delivery High Flow Therapy with Na Oxygen Flow Rate 35 Fraction of Inspired Oxygen 50 Intake/Output Intake/Output: Intake & Output 05/11/24 05/12/24 05/13/24 05/14/24 23:59 23:59 23:59 23:59 Intake Total 923.7 2383.3 2770 370 Output Total 120 300 250 Balance 923.7 2263.3 2470 120 Meds/Results Medications: Active Medications Generic Name Dose Route Start Last Admin Trade Name Freq PRN Reason Stop Dose Admin Acetaminophen 650 mg 05/11/24 18:35 05/12/24 08:08 Acetaminophen 325 Mg Tablet PO 650 mg Q4H PRN Administration Mild Pain (1-3) or Fever Albuterol/Ipratropium 3 ml 05/12/24 02:00 05/14/24 08:01 Ipratropium 0.5 Mg/Albuterol Sulfate 2.5 Mg Ampul.Neb 3 Ml INHALATION 3 ml Q6HRT SANGEETA Administration Aspirin 81 mg 05/12/24 09:00 05/14/24 08:38 Aspirin 81 Mg Enteric Tablet PO 81 mg DAILY SANGEETA Administration Clopidogrel Bisulfate 75 mg 05/12/24 09:00 05/14/24 08:38 Clopidogrel Bisulfate 75 Mg Tablet PO 75 mg DAILY SANGEETA Administration Dextrose 12.5 gm 05/11/24 22:22 Dextrose 50% 25 Gm/50 Ml Syringe IV PUSH PRN PRN Hypoglycemia Protocol Doxycycline Hyclate 100 mg 05/14/24 21:00 Doxycycline Hyclate 100 Mg Tablet PO 05/15/24 21:01 Q12HR SANGEETA Famotidine 20 mg 05/14/24 09:00 05/14/24 08:39 Famotidine 20 Mg/2 Ml Vial IV PUSH 20 mg DAILY SANGEETA Administration Fluticasone/Umeclidinium/Vilanterol 1 puff 05/12/24 08:00 05/14/24 08:01 Fluticasone/Umeclidin/Vilanter 100-62.5-25 Mcg Ellipta INHALATION 1 puff DAILYRT SANGEETA Administration Glucagon 1 mg 05/11/24 22:22 Glucagon For Inj 1 Mg Vial IM PRN PRN Hypoglycemia Protocol Glucose 15 gm 05/11/24 22:22 Glucose Oral Gel 15 Gm Of Glucse In 37.5 Gm Tube PO PRN PRN Hypoglycemia Protocol Guaifenesin 1,200 mg 05/12/24 09:00 05/14/24 08:39 Guaifenesin 12 Hr 600 Mg Tabcr PO 1,200 mg Q12HR SANGEETA Administration Heparin Sodium (Porcine) 5,000 units 05/12/24 09:00 05/14/24 08:39 Heparin Sodium 5,000 Units/Ml Vial SUB-Q 5,000 units Q12HR SANGEETA Administration Hydrocortisone Sodium Succinate 50 mg 05/12/24 08:30 05/14/24 11:46 Hydrocortisone Sodium Succinate 100 Mg/2 Ml Vial IV PUSH 50 mg Q6HR SANGEETA Administration Dextrose 1,000 mls @ 100 mls/hr 05/11/24 22:22 Dextrose 5% 1,000 Ml IVPB PRN PRN Hypoglycemia Protocol Ceftriaxone Sodium 2 gm in 100 mls @ 200 mls/hr 05/14/24 10:15 05/14/24 11:47 Rocephin 2 Gm/Ns 100 Ml IVPB 200 mls/hr QAM SANGEETA Administration Insulin Aspart 4 - 8 units 05/12/24 08:25 05/14/24 11:47 Insulin Aspart (*Bkc) 100 Units/Ml SUB-Q Not Given Q4H SANGEETA Protocol Levothyroxine Sodium 75 mcg 05/12/24 06:30 05/14/24 05:17 Levothyroxine Sodium 75 Mcg Tablet PO 75 mcg DAILY@0630 SANGEETA Administration Ondansetron HCl 4 mg 05/11/24 18:35 Ondansetron Inj 4 Mg/2 Ml Vial IV PUSH Q4H PRN Nausea Rosuvastatin Calcium 40 mg 05/12/24 09:00 05/13/24 08:58 Rosuvastatin 20 Mg Tablet PO 40 mg DAILY SANGEETA Administration Radiology Results: ITS Impressions Chest/Abdomen/Pelvis CT 05/11/24 18:29 IMPRESSION: Extensive right upper lobe, middle lobe and left lower lobe consolidating pneumonia, with mild mediastinal reactive lymph node enlargement Occasional pulmonary nodules, likely related to pulmonary granulomatous disease 29 x 31 mm left adrenal low-attenuation mass, likely due to adrenal adenoma, less likely metastasis Normal appendix Minimal sigmoid diverticulosis; no evidence of diverticulitis Moderate prostatomegaly 2. Fusiform infrarenal abdominal aortic aneurysms, measuring up to 4 cm Central venous right common femoral catheter in right common femoral vein Renal Ultrasound 05/12/24 15:15 IMPRESSION: Unremarkable renal sonogram findings. Carotid Doppler Study 05/12/24 15:34 IMPRESSION: 1. <50% stenosis in the right internal carotid artery. 2. 50-69% stenosis in the left internal carotid artery. Chest X-Ray 05/14/24 06:05 IMPRESSION: 1. Diffuse lung disease with slight improvement on the right and worsening on the left, consistent with pneumonia. 2. Small left pleural effusion. Labs Labs: Laboratory Results - last 24 hr 05/13/24 05/13/24 05/13/24 17:07 20:43 21:50 WBC RBC Hgb Hct MCV MCH MCHC RDW Plt Count MPV Immature Gran % (Auto) Neut % (Auto) Lymph % (Auto) [place] % (Auto) Eos % (Auto) Baso % (Auto) Lymph # (Auto) [place] # (Auto) Eos # (Auto) Baso # (Auto) Abs Immat Gran (auto) Absolute Neuts (auto) Absolute Nucleated RBC Nucleated RBC % Platelet Estimate Ovalocytes Schistocytes Puncture Site ABG pH ABG pCO2 ABG pO2 ABG PO2/FiO2 Ratio ABG HCO3 ABG O2 Saturation ABG O2 Content ABG Base Excess A-a Gradient Oxyhemoglobin Carboxyhemoglobin Methemoglobin Reduced Hemoglobin Total Hemoglobin O2 Delivery Device O2 Liters/Min FiO2 Expiratory Pressure Inspiratory Pressure Sodium Potassium Chloride Carbon Dioxide Anion Gap BUN Creatinine Estim Creat Clear Calc Estimated GFR Glucose POC Capillary Glucose 143 H 217 H Lactic Acid Calcium Phosphorus Magnesium Total Bilirubin AST ALT Alkaline Phosphatase Total Protein Albumin Random Vancomycin 19.0 Hep Bs Antigen Hep Bs Antibody 05/13/24 05/14/24 05/14/24 23:30 04:33 05:49 WBC 16.5 H RBC 3.00 L Hgb 8.9 L Hct 25.0 L MCV 83.3 MCH 29.7 MCHC 35.6 RDW 14.1 Plt Count 211 MPV 9.7 Immature Gran % (Auto) 1.3 H Neut % (Auto) 90.2 H Lymph % (Auto) 3.0 L [place] % (Auto) 5.4 Eos % (Auto) 0.0 Baso % (Auto) 0.1 L Lymph # (Auto) 0.49 L [place] # (Auto) 0.9 H Eos # (Auto) 0.0 Baso # (Auto) 0.0 Abs Immat Gran (auto) 0.21 H Absolute Neuts (auto) 14.9 H Absolute Nucleated RBC 0.000 Nucleated RBC % 0.0 Platelet Estimate Adequate Ovalocytes 1+ Schistocytes None seen Puncture Site Right radial ABG pH 7.421 ABG pCO2 26.6 L ABG pO2 60.2 L ABG PO2/FiO2 Ratio 1.50 ABG HCO3 16.9 L ABG O2 Saturation 92.1 L ABG O2 Content 14.7 L ABG Base Excess -6.2 A-a Gradient 194.4 Oxyhemoglobin 89.9 L Carboxyhemoglobin 0.2 Methemoglobin 0.3 Reduced Hemoglobin 9.6 H Total Hemoglobin 11.6 L O2 Delivery Device Bipap O2 Liters/Min Not Reportable FiO2 40 Expiratory Pressure 6 Inspiratory Pressure 12 Sodium 138 Potassium 3.5 Chloride 103 Carbon Dioxide 19 L Anion Gap 16 H BUN 101 H D Creatinine 6.20 H Estim Creat Clear Calc 9 Estimated GFR 9 L Glucose 157 H POC Capillary Glucose 182 H Lactic Acid 1.4 Calcium 7.2 L Phosphorus 5.2 H Magnesium 2.7 H Total Bilirubin 0.7 AST 117 H ALT 65 H Alkaline Phosphatase 115 Total Protein 6.0 L Albumin 3.4 L Random Vancomycin Hep Bs Antigen Negative Hep Bs Antibody Negative 05/14/24 05/14/24 08:38 11:13 WBC RBC Hgb Hct MCV MCH MCHC RDW Plt Count MPV Immature Gran % (Auto) Neut % (Auto) Lymph % (Auto) [place] % (Auto) Eos % (Auto) Baso % (Auto) Lymph # (Auto) [place] # (Auto) Eos # (Auto) Baso # (Auto) Abs Immat Gran (auto) Absolute Neuts (auto) Absolute Nucleated RBC Nucleated RBC % Platelet Estimate Ovalocytes Schistocytes Puncture Site ABG pH ABG pCO2 ABG pO2 ABG PO2/FiO2 Ratio ABG HCO3 ABG O2 Saturation ABG O2 Content ABG Base Excess A-a Gradient Oxyhemoglobin Carboxyhemoglobin Methemoglobin Reduced Hemoglobin Total Hemoglobin O2 Delivery Device O2 Liters/Min FiO2 Expiratory Pressure Inspiratory Pressure Sodium Potassium Chloride Carbon Dioxide Anion Gap BUN Creatinine Estim Creat Clear Calc Estimated GFR Glucose POC Capillary Glucose 170 H 158 H Lactic Acid Calcium Phosphorus Magnesium Total Bilirubin AST ALT Alkaline Phosphatase Total Protein Albumin Random Vancomycin Hep Bs Antigen Hep Bs Antibody Quality VTE Prophylaxis VTE prophylaxis: mechanical ordered and pharmacologic ordered
[2024-05-14] MEDS: BUMETANIDE INJ 1 MG/4 ML VIAL 2 MG IV PUSH (13:46)
[2024-05-14 16:12] LABS: Glucose Point of Care 199 mg/dl (65-105)
[2024-05-14 20:44] LABS: Glucose Point of Care 184 mg/dl (65-105)
[2024-05-14] MEDS: DOXYCYCLINE HYCLATE 100 MG TABLET PO (20:45)
[2024-05-15] VITALS (35 sets, daily range): BP systolic 147–198; BP diastolic 61–93; PULSE 70–95; RESP 16–24; TEMP 36–37.2; O2SAT 91–100
[2024-05-15 00:08] LABS: Glucose Point of Care 180 mg/dl (65-105)
[2024-05-15] MEDS: HYDROCORTISONE SODIUM SUCCINATE 100 MG/2 ML VIAL 50 MG IV PUSH ×4 (00:32→17:24)
[2024-05-15] MEDS: IPRATROPIUM 0.5 MG/ALBUTEROL SULFATE 2.5 MG AMPUL.NEB 3 ML INHALATION ×4 (01:23→21:09)
[2024-05-15 04:11] LABS: Hematocrit 26.1 % (42.0-52.0); Hemoglobin 9.1 g/dL (14.0-18.0); Mean Corpuscular HGB Conc 34.9 g/dl (32-36); Mean Corpuscular Hemoglobin 29.1 pg (26-34); Mean Corpuscular Volume 83.4 fl (80-100); Mean Platelet Volume 9.1 fl (7.4-10.4); Platelet Count Result 225 k/mm3 (150-375); Red Blood Count 3.13 M/mm3 (4.6-6.20); Red Cell Distribution Width 14.3 % (11.5-14.5); White Blood Count 15.5 K/mm3 (4.5-10.0)
[2024-05-15 04:25] LABS: Lactic Acid Reflex 0.6 mmol/L (0.7-2.0)
[2024-05-15 04:35] LABS: Alanine Aminotransferase 49 U/L (6-50); Albumin Level 3.6 g/dL (3.5-5.1); Alkaline Phosphatase 105 U/L (38-126); Anion Gap 19 mmol/L (4-12); Aspartate Amino Transferase 70 U/L (17-59); Bilirubin,Total 0.7 mg/dL (0.2-1.3); Blood Urea Nitrogen 119 mg/dL (9-20); Calcium 7.3 mg/dL (8.4-10.2); Carbon Dioxide 17 mmol/L (22-30); Chloride 103 mmol/L (98-107); Estimated CRCL calculation 8 ml/min; Estimated Glomerular Filt Rate 8; Glucose 174 mg/dL (65-110); Magnesium 2.6 mg/dL (1.6-2.3); Phosphorus 5.4 mg/dL (2.5-4.5); Potassium 3.2 mmol/L (3.4-5.0); Sodium 139 mmol/L (137-145)
[2024-05-15 04:40] LABS: Lymphocytes Absolute Manual 0.62 K/mm3 (1.1-4.5); Monocytes Absolute Manual 0.62 K/mm3 (0.1-0.90); Monocytes Percent Manual 4 % (3-9); Neutrophils Percent Manual 92 % (46-73); Total Cells Counted 100
[2024-05-15 04:41] LABS: Anisocytosis 1+; Hypochromasia 1+; Ovalocytes 1+; Platelet Estimate Adequate (Adequate); Schistocytes None Seen; Smudge Cells PRESENT
[2024-05-15 05:04] LABS: Alveolar/Arterial O2 Gradient 172.3 mmHg; Base Excess ABG -8.5 mEq/l (+/-2.0); Carboxyhemoglobin 0.3 % THb (0-2.0); Fractional Inspired Oxygen 40 %; HCO3 ABG 14.9 mEq/l (22.0-26.0); Methemoglobin ABG 0.3 %THb (0-1.5); Oxygen Saturation ABG 96.8 % (95.0-100.0); PO2 ABG 85.3 mmHg (80.0-100.0); PO2 FiO2 Ratio Arterial Blood 2.13 %; Reduced Hemoglobin 4.4 %THb (0-5.0); Total Hemoglobin 8.9 g/dL (12.0-18.0)
[2024-05-15 05:05] LABS: Device NON-INVASIVE VENT; Modified Allen's Test Pass; Non-Invasive Expiratory Pressure 6 CMH2O; Non-Invasive Inspiratory Pressure 12 CMH2O; Non-Invasive Vent Rate 12 /MIN; Site Drawn RIGHT RADIAL
[2024-05-15] MEDS: LEVOTHYROXINE SODIUM 75 MCG TABLET PO (05:56)
[2024-05-15 07:28] LABS: Hepatitis B Core Ab Total NON-REACTIVE (NON-REACTIVE)
--- NOTE | 2024-05-15 08:07 | P.PNCA_ITS ---
Progress Note: A&P Assessment and Plan (1) Syncope: Code(s): R55 - Syncope and collapse Status: Acute Assessment and Plan: Probably due to septic shock. (2) Multifocal pneumonia: Code(s): J18.9 - Pneumonia, unspecified organism Status: Acute Assessment and Plan: On antibiotics as per hospitalist. (3) Acute kidney injury: Code(s): N17.9 - Acute kidney failure, unspecified Status: Acute Assessment and Plan: Worsening. Probably due to septic shock. Nephrology following. (4) Tobacco dependence: Code(s): F17.200 - Nicotine dependence, unspecified, uncomplicated Status: Acute Assessment and Plan: Counseled regarding smoking cessation. (5) Hypertension: Code(s): I10 - Essential (primary) hypertension Status: Acute Assessment and Plan: High. Start Coreg 6.25 mg BID. Monitor. (6) Elevated troponin: Code(s): R79.89 - Other specified abnormal findings of blood chemistry Status: Acute Assessment and Plan: Troponin peaked at .102 and trending down. Due to septic shock, pneumonia, acute renal failure. Doubt ACS without chest pains, no EKG ST changes. (7) Systolic dysfunction: Code(s): I51.9 - Heart disease, unspecified Status: Acute Assessment and Plan: Appears euvolemic. 05/12/24 Echo: TDS. Mild LVE, EF 35-40%, mild LVH, grade I diastolic dysfunction, mild LAE, trace MR. Start HF medication which is his home medication Coreg. Not on John/ARB/Entresto or Jardiance as kidney function worsening. (8) Transaminitis: Code(s): R74.01 - Elevation of levels of liver transaminase levels Status: Acute Assessment and Plan: Improving. Hold Rosuvastatin. Subjective Date/time seen: 05/15/24 08:07 Interval history: No chest pain or sob. He is confused, angry, wants to see his . Exam Const: General: healthy appearing Orientation/consciousness: oriented to person, oriented to place and oriented to time Resp: Auscultation: no crackles, no rales, no rhonchi, no wheezes and diminished lung sounds Cardio: Rate: tachycardic Rhythm: regular rhythm Heart sounds: no murmurs Peripheral pulses: dorsalis pedis present Neuro: General: oriented to person, oriented to place and oriented to time Extrem: Right lower extremity: no edema Left lower extremity: no edema Objective Data Vital Signs Vital Signs: Vital Signs - 24 hr 05/14/24 08:08 05/14/24 08:50 05/14/24 09:30 Temperature Pulse Rate 90 Respiratory Rate 20 Blood Pressure Pulse Oximetry 96 96 Oxygen Delivery High Flow Therapy with Na Oxygen Flow Rate 45 45 Fraction of Inspired Oxygen 50 50 05/14/24 09:45 05/14/24 10:00 05/14/24 10:00 Temperature 97.4 F L Pulse Rate 86 86 Respiratory Rate 16 Blood Pressure 141/80 H Pulse Oximetry 91 95 Oxygen Delivery High Flow Therapy with Na Oxygen Flow Rate 40 Fraction of Inspired Oxygen 50 05/14/24 11:51 05/14/24 12:00 05/14/24 12:00 Temperature 98.0 F Pulse Rate 80 80 82 Respiratory Rate 24 H 24 H Blood Pressure 131/85 Pulse Oximetry 95 95 Oxygen Delivery High Flow Therapy with Na Oxygen Flow Rate 35 Fraction of Inspired Oxygen 50 05/14/24 12:30 05/14/24 13:55 05/14/24 13:57 Temperature Pulse Rate 78 80 Respiratory Rate 21 H 22 H Blood Pressure Pulse Oximetry 95 96 94 Oxygen Delivery High Flow Therapy with Na High Flow Therapy with Na High Flow Therapy with Na Oxygen Flow Rate 35 35 35 Fraction of Inspired Oxygen 45 40 40 05/14/24 13:57 05/14/24 14:08 05/14/24 14:00 Temperature Pulse Rate 80 81 77 Respiratory Rate 20 20 Blood Pressure Pulse Oximetry Oxygen Delivery Oxygen Flow Rate Fraction of Inspired Oxygen 05/14/24 16:00 05/14/24 16:00 05/14/24 16:00 Temperature 97.7 F Pulse Rate 75 75 70 Respiratory Rate 20 20 Blood Pressure 152/69 H Pulse Oximetry 94 94 Oxygen Delivery High Flow Therapy with Na Oxygen Flow Rate 35 Fraction of Inspired Oxygen 40 05/14/24 18:00 05/14/24 19:59 05/14/24 20:00 Temperature Pulse Rate 78 89 Respiratory Rate 20 Blood Pressure Pulse Oximetry 92 Oxygen Delivery High Flow Therapy with Na Oxygen Flow Rate 35 Fraction of Inspired Oxygen 40 05/14/24 20:07 05/14/24 20:00 05/14/24 20:00 Temperature 98.9 F Pulse Rate 87 87 Respiratory Rate 23 H 25 H Blood Pressure 143/96 H Pulse Oximetry 94 93 Oxygen Delivery High Flow Therapy with Na Oxygen Flow Rate 35 Fraction of Inspired Oxygen 40 05/14/24 20:00 05/14/24 22:45 05/15/24 00:00 Temperature Pulse Rate 87 84 Respiratory Rate 28 H Blood Pressure Pulse Oximetry 96 92 Oxygen Delivery BiPAP BiPAP Oxygen Flow Rate Fraction of Inspired Oxygen 40 05/15/24 00:00 05/15/24 00:00 05/15/24 01:23 Temperature 98 F Pulse Rate 84 84 76 Respiratory Rate 22 H 21 H Blood Pressure 180/93 H Pulse Oximetry 92 Oxygen Delivery Oxygen Flow Rate Fraction of Inspired Oxygen 05/15/24 01:25 05/15/24 01:30 05/15/24 03:58 Temperature Pulse Rate 80 77 Respiratory Rate 23 H 23 H Blood Pressure Pulse Oximetry 93 Oxygen Delivery BiPAP BiPAP Oxygen Flow Rate Fraction of Inspired Oxygen 40 05/15/24 04:00 05/15/24 04:00 05/15/24 05:15 Temperature 97.1 F L Pulse Rate 83 83 80 Respiratory Rate 22 H 22 H Blood Pressure 163/79 H Pulse Oximetry 91 97 Oxygen Delivery BiPAP Oxygen Flow Rate Fraction of Inspired Oxygen 05/15/24 08:01 05/15/24 08:01 Temperature Pulse Rate 92 Respiratory Rate 24 H Blood Pressure Pulse Oximetry 91 Oxygen Delivery High Flow Therapy with Na Oxygen Flow Rate 35 Fraction of Inspired Oxygen 40 Intake/Output Intake/Output: Intake & Output 05/12/24 05/13/24 05/14/24 05/15/24 23:59 23:59 23:59 23:59 Intake Total 2383.3 2770 1310 500 Output Total 120 300 850 900 Balance 2263.3 2470 460 -400 Meds/Results Medications: Active Medications Generic Name Dose Route Start Last Admin Trade Name Freq PRN Reason Stop Dose Admin Acetaminophen 650 mg 05/11/24 18:35 05/12/24 08:08 Acetaminophen 325 Mg Tablet PO 650 mg Q4H PRN Administration Mild Pain (1-3) or Fever Albuterol/Ipratropium 3 ml 05/12/24 02:00 05/15/24 08:01 Ipratropium 0.5 Mg/Albuterol Sulfate 2.5 Mg Ampul.Neb 3 Ml INHALATION 3 ml Q6HRT SANGEETA Administration Aspirin 81 mg 05/12/24 09:00 05/14/24 08:38 Aspirin 81 Mg Enteric Tablet PO 81 mg DAILY SANGEETA Administration Carvedilol 6.25 mg 05/15/24 09:00 Carvedilol 3.125 Mg Tablet PO Q12HR SANGEETA Clopidogrel Bisulfate 75 mg 05/12/24 09:00 05/14/24 08:38 Clopidogrel Bisulfate 75 Mg Tablet PO 75 mg DAILY SANGEETA Administration Dextrose 12.5 gm 05/11/24 22:22 Dextrose 50% 25 Gm/50 Ml Syringe IV PUSH PRN PRN Hypoglycemia Protocol Doxycycline Hyclate 100 mg 05/14/24 21:00 05/14/24 20:45 Doxycycline Hyclate 100 Mg Tablet PO 05/15/24 21:01 100 mg Q12HR SANGEETA Administration Famotidine 20 mg 05/14/24 09:00 05/14/24 08:39 Famotidine 20 Mg/2 Ml Vial IV PUSH 20 mg DAILY SANGEETA Administration Fluticasone/Umeclidinium/Vilanterol 1 puff 05/12/24 08:00 05/14/24 08:01 Fluticasone/Umeclidin/Vilanter 100-62.5-25 Mcg Ellipta INHALATION 1 puff DAILYRT SANGEETA Administration Glucagon 1 mg 05/11/24 22:22 Glucagon For Inj 1 Mg Vial IM PRN PRN Hypoglycemia Protocol Glucose 15 gm 05/11/24 22:22 Glucose Oral Gel 15 Gm Of Glucse In 37.5 Gm Tube PO PRN PRN Hypoglycemia Protocol Guaifenesin 1,200 mg 05/12/24 09:00 05/14/24 20:45 Guaifenesin 12 Hr 600 Mg Tabcr PO 1,200 mg Q12HR SANGEETA Administration Heparin Sodium (Porcine) 5,000 units 05/12/24 09:00 05/14/24 20:45 Heparin Sodium 5,000 Units/Ml Vial SUB-Q 5,000 units Q12HR SANGEETA Administration Hydrocortisone Sodium Succinate 50 mg 05/12/24 08:30 05/15/24 05:56 Hydrocortisone Sodium Succinate 100 Mg/2 Ml Vial IV PUSH 50 mg Q6HR SANGEETA Administration Dextrose 1,000 mls @ 100 mls/hr 05/11/24 22:22 Dextrose 5% 1,000 Ml IVPB PRN PRN Hypoglycemia Protocol Ceftriaxone Sodium 2 gm in 100 mls @ 200 mls/hr 05/14/24 10:15 05/14/24 12:31 Rocephin 2 Gm/Ns 100 Ml IVPB Infused QAM SANGEETA Infusion Insulin Aspart 4 - 8 units 05/12/24 08:25 05/15/24 04:41 Insulin Aspart (*Bkc) 100 Units/Ml SUB-Q Not Given Q4H [facility] Protocol Levothyroxine Sodium 75 mcg 05/12/24 06:30 05/15/24 05:56 Levothyroxine Sodium 75 Mcg Tablet PO 75 mcg DAILY@0630 SANGEEAT Administration Ondansetron HCl 4 mg 05/11/24 18:35 Ondansetron Inj 4 Mg/2 Ml Vial IV PUSH Q4H PRN Nausea Rosuvastatin Calcium 40 mg 05/12/24 09:00 05/13/24 08:58 Rosuvastatin 20 Mg Tablet PO 40 mg DAILY SANGEETA Administration Radiology Results: ITS Impressions Chest/Abdomen/Pelvis CT 05/11/24 18:29 IMPRESSION: Extensive right upper lobe, middle lobe and left lower lobe consolidating pneumonia, with mild mediastinal reactive lymph node enlargement Occasional pulmonary nodules, likely related to pulmonary granulomatous disease 29 x 31 mm left adrenal low-attenuation mass, likely due to adrenal adenoma, less likely metastasis Normal appendix Minimal sigmoid diverticulosis; no evidence of diverticulitis Moderate prostatomegaly 2. Fusiform infrarenal abdominal aortic aneurysms, measuring up to 4 cm Central venous right common femoral catheter in right common femoral vein Renal Ultrasound 05/12/24 15:15 IMPRESSION: Unremarkable renal sonogram findings. Carotid Doppler Study 05/12/24 15:34 IMPRESSION: 1. <50% stenosis in the right internal carotid artery. 2. 50-69% stenosis in the left internal carotid artery. Chest X-Ray 05/15/24 06:30 IMPRESSION: 1. There is been some interval improvement in bilateral airspace opacities greatest in the right mid and left lower lung zones consistent with pneumonia 2. Small left pleural effusion. Labs Labs: Laboratory Results - last 24 hr 05/14/24 05/14/24 05/14/24 04:33 08:38 11:13 WBC RBC Hgb Hct MCV MCH MCHC RDW Plt Count MPV Immature Gran % (Auto) Neut % (Auto) Lymph % (Auto) [place] % (Auto) Eos % (Auto) Baso % (Auto) Lymph # (Auto) [place] # (Auto) Eos # (Auto) Baso # (Auto) Abs Immat Gran (auto) Absolute Neuts (auto) Absolute Nucleated RBC Total Counted Neutrophils % (Manual) Lymphocytes % (Manual) Monocytes % (Manual) Nucleated RBC % Abs Lymphs (Manual) Abs Monocytes (Manual) Smudge Cells Platelet Estimate Hypochromasia Anisocytosis Ovalocytes Schistocytes Puncture Site ABG pH ABG pCO2 ABG pO2 ABG PO2/FiO2 Ratio ABG HCO3 ABG O2 Saturation ABG O2 Content ABG Base Excess A-a Gradient Oxyhemoglobin Carboxyhemoglobin Methemoglobin Reduced Hemoglobin Total Hemoglobin O2 Delivery Device O2 Liters/Min Vent Rate FiO2 Expiratory Pressure Inspiratory Pressure Sodium Potassium Chloride Carbon Dioxide Anion Gap BUN Creatinine Estim Creat Clear Calc Estimated GFR Glucose POC Capillary Glucose 170 H 158 H Lactic Acid Calcium Phosphorus Magnesium Total Bilirubin AST ALT Alkaline Phosphatase Total Protein Albumin Hep B Core Total Ab Non-reactive 05/14/24 05/14/24 05/15/24 16:09 20:41 00:02 WBC RBC Hgb Hct MCV MCH MCHC RDW Plt Count MPV Immature Gran % (Auto) Neut % (Auto) Lymph % (Auto) [place] % (Auto) Eos % (Auto) Baso % (Auto) Lymph # (Auto) [place] # (Auto) Eos # (Auto) Baso # (Auto) Abs Immat Gran (auto) Absolute Neuts (auto) Absolute Nucleated RBC Total Counted Neutrophils % (Manual) Lymphocytes % (Manual) Monocytes % (Manual) Nucleated RBC % Abs Lymphs (Manual) Abs Monocytes (Manual) Smudge Cells Platelet Estimate Hypochromasia Anisocytosis Ovalocytes Schistocytes Puncture Site ABG pH ABG pCO2 ABG pO2 ABG PO2/FiO2 Ratio ABG HCO3 ABG O2 Saturation ABG O2 Content ABG Base Excess A-a Gradient Oxyhemoglobin Carboxyhemoglobin Methemoglobin Reduced Hemoglobin Total Hemoglobin O2 Delivery Device O2 Liters/Min Vent Rate FiO2 Expiratory Pressure Inspiratory Pressure Sodium Potassium Chloride Carbon Dioxide Anion Gap BUN Creatinine Estim Creat Clear Calc Estimated GFR Glucose POC Capillary Glucose 199 H 184 H 180 H Lactic Acid Calcium Phosphorus Magnesium Total Bilirubin AST ALT Alkaline Phosphatase Total Protein Albumin Hep B Core Total Ab 05/15/24 05/15/24 04:04 04:51 WBC 15.5 H RBC 3.13 L Hgb 9.1 L Hct 26.1 L MCV 83.4 MCH 29.1 MCHC 34.9 RDW 14.3 Plt Count 225 MPV 9.1 Immature Gran % (Auto) Not Reportable Neut % (Auto) Not Reportable Lymph % (Auto) Not Reportable [place] % (Auto) Not Reportable Eos % (Auto) Not Reportable Baso % (Auto) Not Reportable Lymph # (Auto) Not Reportable [place] # (Auto) Not Reportable Eos # (Auto) Not Reportable Baso # (Auto) Not Reportable Abs Immat Gran (auto) Not Reportable Absolute Neuts (auto) Not Reportable Absolute Nucleated RBC Not Reportable Total Counted 100 Neutrophils % (Manual) 92 H Lymphocytes % (Manual) 4.0 L Monocytes % (Manual) 4 Nucleated RBC % Not Reportable Abs Lymphs (Manual) 0.62 L Abs Monocytes (Manual) 0.62 Smudge Cells Present Platelet Estimate Adequate Hypochromasia 1+ Anisocytosis 1+ Ovalocytes 1+ Schistocytes None seen Puncture Site Right radial ABG pH 7.410 ABG pCO2 24.0 L ABG pO2 85.3 ABG PO2/FiO2 Ratio 2.13 ABG HCO3 14.9 L ABG O2 Saturation 96.8 ABG O2 Content 12.0 L ABG Base Excess -8.5 A-a Gradient 172.3 Oxyhemoglobin 95.0 Carboxyhemoglobin 0.3 Methemoglobin 0.3 Reduced Hemoglobin 4.4 Total Hemoglobin 8.9 L O2 Delivery Device Non-invasive vent O2 Liters/Min Not Reportable Vent Rate 12 FiO2 40 Expiratory Pressure 6 Inspiratory Pressure 12 Sodium 139 Potassium 3.2 L Chloride 103 Carbon Dioxide 17 L Anion Gap 19 H BUN 119 H D Creatinine 6.90 H Estim Creat Clear Calc 8 Estimated GFR 8 L Glucose 174 H POC Capillary Glucose Lactic Acid 0.6 L Calcium 7.3 L Phosphorus 5.4 H Magnesium 2.6 H Total Bilirubin 0.7 AST 70 H ALT 49 Alkaline Phosphatase 105 Total Protein 7.0 Albumin 3.6 Hep B Core Total Ab
[2024-05-15] MEDS: FLUTICASONE/UMECLIDIN/VILANTER 100-62.5-25 MCG ELLIPTA 1 PUFF INHALATION (08:08)
[2024-05-15 08:45] LABS: Glucose Point of Care 189 mg/dl (65-105)
--- NOTE | 2024-05-15 09:19 | PC.NURSE ---
RN at bedside going over medications with patient for med pass this AM. Patient refusing to allow RN to administer any medications including IV antibiotics. Patient keeps stating that I (the nurse) is plotting against him and that god will get me for all my sins . Patient is disoriented and requesting his at bedside, multiple offers to call , patient refuses to allow staff to call stating that he does not trust us . Patient is suspicious of all staff and keeps stating he wants to escape . MD notified of refusal of medications and patient behavior. RN to continue to monitor.
--- NOTE | 2024-05-15 10:33 | P.PNNP_ITS ---
Progress Note: A&P Assessment and Plan (1) Acute kidney injury: Code(s): N17.9 - Acute kidney failure, unspecified Status: Acute Assessment and Plan: * as noted on admission with a creatinine of 4.4mg/dl * unfortunately, only recent labs to compare to are from 2019 (see #2) * evaluation to date noted: * admission CT scan without obstruction * urine electrolytes prerenal * urine eosinophils negative * UA with blood and moderate proteinuria * CPK mildly elevated (probably not enough to affect kidney function) * suspect insult due several issues: * hemodynamic instability/shock * sepsis/infection (bacteremia) * prerenal factors * diuretic therapy [employer] * profound hypoxia * remains at risk for LAMINATOR HAND/dialysis * s/p trial of diuretics on 05/14 (bumex 2mg IV x 1) * follow trend of urine output * follow repeat labs and UOP (2) Stage 3a chronic kidney disease: Code(s): N18.31 - Chronic kidney disease, stage 3a Status: Chronic Assessment and Plan: * last creatinine noted at 1.4mg/dl (although this was from 2019) * presumably due to HTN, vascular disease (LE vascular disease, carotid stenosis, AAA, hyperlipidemia), diabetes, COPD/CJ and age-related change * cannot discount an element of CKD progression.... (3) Septic shock: Code(s): A41.9 - Sepsis, unspecified organism; R65.21 - Severe sepsis with septic shock Status: Acute Assessment and Plan: * thought to be secondary to pneumonia and possibly UTI * s/p aggressive IVF resuscitation * off vasopressor therapy at this time * follow culture data - 05/11 blood cultures with Streptococcus pneumoniae * urine culture negative * follow repeat cultures * on antibiotic therapy * follow trend of hemodynamics (4) Acute respiratory failure: Code(s): J96.00 - Acute respiratory failure, unspecified whether with hypoxia or hypercapnia Status: Acute Assessment and Plan: * due to severe/significant pneumonia as noted by admission imaging * no respiratory distress but noted profound hypoxia on admission * complicated by known history of COPD * using BiPAP and high-flow oxygen mask to maintain oxygen saturations with ongoing weaning noted * at risk for intubation and mechanical ventilation * continue bronchodilators and antibiotic therapy * Echo results noted * follow respiratory status (5) Systolic CHF: Code(s): I50.20 - Unspecified systolic (congestive) heart failure Status: Acute Assessment and Plan: * acute versus chronic? * Echo results noted: * left ventricular systolic function is moderately globally reduced - estimated at 35-40% * left ventricular diastolic function is grade I diastolic dysfunction * mild aortic valve sclerosis * trace mitral valve regurgitation * volume status appears stable * Cardiology following (6) Multifocal pneumonia: Code(s): J18.9 - Pneumonia, unspecified organism Status: Acute Assessment and Plan: * as noted by admission imaging * continue respiratory support * culture data noted * on antibiotics (7) Anemia: Qualifiers: Anemia type: unspecified type Qualified Code(s): D64.9 - Anemia, unspecified Code(s): D64.9 - Anemia, unspecified Status: Acute Assessment and Plan: * due to LEIA, CKD, and acute illness * may need to consider inpatient Retacrit * follow trend of H/H (8) Chronic obstructive pulmonary disease: Qualifiers: COPD type: emphysema Emphysema type: unspecified Qualified Code(s): J43.9 - Emphysema, unspecified Code(s): J44.9 - Chronic obstructive pulmonary disease, unspecified Status: Chronic Assessment and Plan: * known history * see #4 (9) Type 2 diabetes mellitus: Code(s): E11.9 - Type 2 diabetes mellitus without complications Status: Acute Assessment and Plan: * follow accu-cheks * glycemic control per abalone sheller/hospitalists Will continue to follow. Subjective Date/time seen: 05/15/24 10:33 Interval history: Follow-up for acute kidney injury/acute renal failure. Up in chair at the time of my visit in no acute distress; still requiring significant oxygen support but overall improvement noted in FiO2 requirement; reasonable urine output noted in response to trial of IV diuretics although at the expense of worsening renal function/creatinine; no other issues/events overnight or earlier this morning. Exam Narrative: General: elderly but WD/WN male in NAD Heart: normal S1 and S2; no rub Lungs: coarse with some scattered crackles present Abdomen: soft, nontender, nondistended, positive bowel sounds Extremities: no cyanosis or clubbing; no edema Skin: no rash Objective Data Vital Signs Vital Signs: Vital Signs Temp Pulse Resp BP Pulse Ox O2 Del Method O2 Flow Rate 05/15/24 10:20 94 High Flow Therapy with Na 35 05/15/24 09:24 93 High Flow Therapy with Na 35 05/15/24 08:00 95 High Flow Therapy with Na 35 05/15/24 08:00 97.9 F 95 20 180/71 H 95 05/15/24 08:08 93 22 H 05/15/24 08:01 92 24 H 05/15/24 08:01 91 High Flow Therapy with Na 35 05/15/24 05:15 80 22 H 97 BiPAP 05/15/24 04:00 83 05/15/24 04:00 97.1 F L 83 22 H 163/79 H 91 05/15/24 03:58 93 BiPAP 05/15/24 01:30 77 23 H 05/15/24 01:25 80 23 H BiPAP 05/15/24 01:23 76 21 H 05/15/24 00:00 84 05/15/24 00:00 98 F 84 22 H 180/93 H 92 05/15/24 00:00 92 BiPAP 05/14/24 22:45 84 28 H 96 BiPAP 05/14/24 20:00 87 05/14/24 20:00 98.9 F 87 25 H 143/96 H 93 05/14/24 20:00 94 High Flow Therapy with Na 35 05/14/24 20:07 87 23 H 05/14/24 20:00 92 High Flow Therapy with Na 35 05/14/24 19:59 89 20 05/14/24 18:00 78 05/14/24 16:00 70 05/14/24 16:00 97.7 F 75 20 152/69 H 94 05/14/24 16:00 75 20 94 High Flow Therapy with Na 35 Intake/Output Intake/Output: Intake & Output 05/12/24 05/13/24 05/14/24 05/15/24 23:59 23:59 23:59 23:59 Intake Total 2383.3 2770 1310 700 Output Total 120 118 175 5641 Balance 2263.3 2470 460 -950 Meds/Results Medications: Active Medications Generic Name Dose Route Start Last Admin Trade Name Freq PRN Reason Stop Dose Admin Acetaminophen 650 mg 05/11/24 18:35 05/12/24 08:08 Acetaminophen 325 Mg Tablet PO 650 mg Q4H PRN Administration Mild Pain (1-3) or Fever Albuterol/Ipratropium 3 ml 05/12/24 02:00 05/15/24 14:19 Ipratropium 0.5 Mg/Albuterol Sulfate 2.5 Mg Ampul.Neb 3 Ml INHALATION 3 ml Q6HRT SANGEETA Administration Aspirin 81 mg 05/12/24 09:00 05/15/24 11:29 Aspirin 81 Mg Enteric Tablet PO 81 mg DAILY SANGEETA Administration Carvedilol 6.25 mg 05/15/24 21:00 Carvedilol 6.25 Mg Tablet PO Q12HR SANGEETA Clopidogrel Bisulfate 75 mg 05/12/24 09:00 05/15/24 11:28 Clopidogrel Bisulfate 75 Mg Tablet PO 75 mg DAILY SANGEETA Administration Dextrose 12.5 gm 05/11/24 22:22 Dextrose 50% 25 Gm/50 Ml Syringe IV PUSH PRN PRN Hypoglycemia Protocol Doxycycline Hyclate 100 mg 05/14/24 21:00 05/15/24 11:29 Doxycycline Hyclate 100 Mg Tablet PO 05/15/24 21:01 100 mg Q12HR SANGEETA Administration Famotidine 20 mg 05/14/24 09:00 05/15/24 11:28 Famotidine 20 Mg/2 Ml Vial IV PUSH 20 mg DAILY SANGEETA Administration Fluticasone/Umeclidinium/Vilanterol 1 puff 05/12/24 08:00 05/15/24 08:08 Fluticasone/Umeclidin/Vilanter 100-62.5-25 Mcg Ellipta INHALATION 1 puff DAILYRT SANGEETA Administration Glucagon 1 mg 05/11/24 22:22 Glucagon For Inj 1 Mg Vial IM PRN PRN Hypoglycemia Protocol Glucose 15 gm 05/11/24 22:22 Glucose Oral Gel 15 Gm Of Glucse In 37.5 Gm Tube PO PRN PRN Hypoglycemia Protocol Guaifenesin 1,200 mg 05/12/24 09:00 05/15/24 11:28 Guaifenesin 12 Hr 600 Mg Tabcr PO 1,200 mg Q12HR SANGEETA Administration Heparin Sodium (Porcine) 5,000 units 05/12/24 09:00 05/15/24 11:30 Heparin Sodium 5,000 Units/Ml Vial SUB-Q 5,000 units Q12HR SANGEETA Administration Hydrocortisone Sodium Succinate 50 mg 05/12/24 08:30 05/15/24 11:28 Hydrocortisone Sodium Succinate 100 Mg/2 Ml Vial IV PUSH 50 mg Q6HR SANGEETA Administration Dextrose 1,000 mls @ 100 mls/hr 05/11/24 22:22 Dextrose 5% 1,000 Ml IVPB PRN PRN Hypoglycemia Protocol Ceftriaxone Sodium 2 gm in 100 mls @ 200 mls/hr 05/14/24 10:15 05/15/24 11:30 Rocephin 2 Gm/Ns 100 Ml IVPB 200 mls/hr QAM SANGEETA Administration Insulin Aspart 4 - 8 units 05/12/24 08:25 05/15/24 12:31 Insulin Aspart (*Bkc) 100 Units/Ml SUB-Q Not Given Q4H SANGEETA Protocol Levothyroxine Sodium 75 mcg 05/12/24 06:30 05/15/24 05:56 Levothyroxine Sodium 75 Mcg Tablet PO 75 mcg DAILY@0630 SANGEETA Administration Ondansetron HCl 4 mg 05/11/24 18:35 Ondansetron Inj 4 Mg/2 Ml Vial IV PUSH Q4H PRN Nausea Rosuvastatin Calcium 40 mg 05/12/24 09:00 05/13/24 08:58 Rosuvastatin 20 Mg Tablet PO 40 mg DAILY SANGEETA Administration Radiology Results: ITS Impressions Chest/Abdomen/Pelvis CT 05/11/24 18:29 IMPRESSION: Extensive right upper lobe, middle lobe and left lower lobe consolidating pneumonia, with mild mediastinal reactive lymph node enlargement Occasional pulmonary nodules, likely related to pulmonary granulomatous disease 29 x 31 mm left adrenal low-attenuation mass, likely due to adrenal adenoma, less likely metastasis Normal appendix Minimal sigmoid diverticulosis; no evidence of diverticulitis Moderate prostatomegaly 2. Fusiform infrarenal abdominal aortic aneurysms, measuring up to 4 cm Central venous right common femoral catheter in right common femoral vein Renal Ultrasound 05/12/24 15:15 IMPRESSION: Unremarkable renal sonogram findings. Carotid Doppler Study 05/12/24 15:34 IMPRESSION: 1. <50% stenosis in the right internal carotid artery. 2. 50-69% stenosis in the left internal carotid artery. Chest X-Ray 05/15/24 06:30 IMPRESSION: 1. There is been some interval improvement in bilateral airspace opacities greatest in the right mid and left lower lung zones consistent with pneumonia 2. Small left pleural effusion. Labs Labs: Laboratory Tests 05/15/24 04:04 05/15/24 04:04 Lactic Acid 0.6 L Calcium 7.3 L Phosphorus 5.4 H Magnesium 2.6 H Total Bilirubin 0.7 AST 70 H ALT 49 Alkaline Phosphatase 105 Total Protein 7.0 Albumin 3.6 Microbiology 05/13/24 10:30 Blood Blood Culture - Preliminary 05/13/24 10:21 Blood Blood Culture - Preliminary
--- NOTE | 2024-05-15 11:17 | P.PNIM_ITS ---
Progress Note: A&P Assessment and Plan (1) Acute respiratory failure: Code(s): J96.00 - Acute respiratory failure, unspecified whether with hypoxia or hypercapnia Status: Acute Assessment and Plan: 05/12: Patient has baseline COPD and now presented with pneumonia. This morning he is on Airvo at 98% FiO2 along with non-rebreather mask. Although he does not appear in respiratory distress he has significant hypoxia. spoke with the patient and started him on a trial of BiPAP to see if nippv helps and allows us to wean down FiO2. - spoke to the patient and mentioned that he may need intubation and mechanical ventilation if he does not improve or continues to deteriorate. Patient is agreeable to intubation if needed. At this time patient is not in respiratory distress and is maintaining saturations. He is also not CO2 retainer as per his last ABG. 05/15/2024 Patient is feeling slightly better today. -chest x-ray and ABGs reviewed this morning -currently on high-flow 35 L flow rate and 45% FiO2, intermittently on BiPAP because he prefers BiPAP. Plan is to -continue bronchodilators -continue steroids for pneumonia -continue antibiotics as below -will discontinue IV fluids -PT/OT to follow, up in chair as tolerated (2) Septic shock: Code(s): A41.9 - Sepsis, unspecified organism; R65.21 - Severe sepsis with septic shock Status: Acute Assessment and Plan: Septic shock secondary to pneumonia and UTI Patient has received IV fluid bolus and is now on maintenance IV fluids. Cautious IV fluids to minimize risk of volume overload Off pressors Continue Hydrocortisone for pneumonia 05/11: Blood cultures growing Streptococcus pneumonia 2/2 bottles, pansensitive 05/12: Urine culture NO growth -05/14: will discontinue vancomycin and cefepime -05/14: Started patient ceftriaxone, continue oral doxycycline - urine Legionella and pneumococcal antigen pending Lactic acid has normalized 05/12/2024: Echocardiogram Summary 1. Technically suboptimal study due to poor sonographic images. 2. Definity contrast administered improved wall motion interpretation. 3. Left ventricular chamber dimension is mildly enlarged. 4. Left ventricular systolic function is moderately globally reduced, estimated at 35-40%. 5. There is mild concentric increased left ventricular wall thickness. 6. The left ventricular diastolic function is grade I diastolic dysfunction. 7. Left atrial chamber dimension is mildly enlarged. 8. There is mild aortic valve sclerosis. 9. There is trace mitral valve regurgitation. 05/15/2024 Patient x-ray shows slightly improvement. Vital signs are stable. Repeat blood cultures are negative. Plan is to continue with IV antibiotics. (3) Multifocal pneumonia: Code(s): J18.9 - Pneumonia, unspecified organism Status: Acute Assessment and Plan: See above (4) Acute kidney injury: Code(s): N17.9 - Acute kidney failure, unspecified Status: Acute Assessment and Plan: 05/15/2024 He presented with creatinine of 4.4. Baseline unknown as last recorded creatinine is from 2019 Creatinine is 6.6 today. Nephrology following (5) Type 2 diabetes mellitus: Code(s): E11.9 - Type 2 diabetes mellitus without complications Status: Acute Assessment and Plan: Sliding scale insulin Continue diabetic diet and heart healthy diet (6) Hypothyroidism: Code(s): E03.9 - Hypothyroidism, unspecified Status: Acute Assessment and Plan: Elevated TSH -continue levothyroxine (7) Elevated troponin: Code(s): R79.89 - Other specified abnormal findings of blood chemistry Status: Acute Assessment and Plan: Mildly elevated troponin in the setting of septic shock and acute kidney failure likely to monitor radiated ischemia. Thomas denies any chest pain. -troponins trending down -Continue aspirin Plavix and rosuvastatin -echocardiogram as above (8) Chronic obstructive pulmonary disease: Qualifiers: COPD type: emphysema Emphysema type: unspecified Qualified Code(s): J43.9 - Emphysema, unspecified Code(s): J44.9 - Chronic obstructive pulmonary disease, unspecified Status: Acute Assessment and Plan: Continue NIPPV, steroids, bronchodilators (9) Electrolyte abnormality: Code(s): E87.8 - Other disorders of electrolyte and fluid balance, not elsewhere classified Status: Acute Assessment and Plan: Magnesium is normalized after replacement Replace potassium as needed Plan DVT prophylaxis -subcutaneous heparin Stress ulcer prophylaxis -Pepcid daily due to acute kidney injury Nutrition -heart healthy diet Code Status: patient wishes to be full code Subjective Date/time seen: 05/15/24 11:17 Patient was seen during the morning rounds today. Patient is feeling slightly better. Decreased shortness of breath. No chest pain. No abdominal pain, no nausea, no vomiting. Review of Systems Review of Systems: 12 systems were reviewed and are negativ e except for as per HPI. All systems reviewed & are unremarkable except as noted in HPI and below Exam Narrative: General: Pt is alert awake and in no significant distress Lungs/Chest: Air entry is decreased, few rales at bases. Cardiac: RRR. Normal S1 S2. No murmurs Circulation: Pedal pulses are intact and symmetrical. Abdomen: Normal bowel sounds. Soft. NT. ND. Extremities: No clubbing, cyanosis or edema. Warm : Garcia in place Neurologic: Follows commands. Moves all 4 extremities PERRL AO x3 Skin: No Rash Objective Data Vital Signs Vital Signs: Vital Signs - 24 hr 05/14/24 11:51 05/14/24 12:00 05/14/24 12:00 Temperature 36.7 C Pulse Rate 80 80 82 Respiratory Rate 24 H 24 H Blood Pressure 131/85 Pulse Oximetry 95 95 Oxygen Delivery High Flow Therapy with Na Oxygen Flow Rate 35 Fraction of Inspired Oxygen 50 05/14/24 12:30 05/14/24 13:55 05/14/24 13:57 Temperature Pulse Rate 78 80 Respiratory Rate 21 H 22 H Blood Pressure Pulse Oximetry 95 96 94 Oxygen Delivery High Flow Therapy with Na High Flow Therapy with Na High Flow Therapy with Na Oxygen Flow Rate 35 35 35 Fraction of Inspired Oxygen 45 40 40 05/14/24 13:57 05/14/24 14:08 05/14/24 14:00 Temperature Pulse Rate 80 81 77 Respiratory Rate 20 20 Blood Pressure Pulse Oximetry Oxygen Delivery Oxygen Flow Rate Fraction of Inspired Oxygen 05/14/24 16:00 05/14/24 16:00 05/14/24 16:00 Temperature 36.5 C Pulse Rate 75 75 70 Respiratory Rate 20 20 Blood Pressure 152/69 H Pulse Oximetry 94 94 Oxygen Delivery High Flow Therapy with Na Oxygen Flow Rate 35 Fraction of Inspired Oxygen 40 05/14/24 18:00 05/14/24 19:59 05/14/24 20:00 Temperature Pulse Rate 78 89 Respiratory Rate 20 Blood Pressure Pulse Oximetry 92 Oxygen Delivery High Flow Therapy with Na Oxygen Flow Rate 35 Fraction of Inspired Oxygen 40 05/14/24 20:07 05/14/24 20:00 05/14/24 20:00 Temperature 37.2 C Pulse Rate 87 87 Respiratory Rate 23 H 25 H Blood Pressure 143/96 H Pulse Oximetry 94 93 Oxygen Delivery High Flow Therapy with Na Oxygen Flow Rate 35 Fraction of Inspired Oxygen 40 05/14/24 20:00 05/14/24 22:45 05/15/24 00:00 Temperature Pulse Rate 87 84 Respiratory Rate 28 H Blood Pressure Pulse Oximetry 96 92 Oxygen Delivery BiPAP BiPAP Oxygen Flow Rate Fraction of Inspired Oxygen 40 05/15/24 00:00 05/15/24 00:00 05/15/24 01:23 Temperature 36.6 C Pulse Rate 84 84 76 Respiratory Rate 22 H 21 H Blood Pressure 180/93 H Pulse Oximetry 92 Oxygen Delivery Oxygen Flow Rate Fraction of Inspired Oxygen 05/15/24 01:25 05/15/24 01:30 05/15/24 03:58 Temperature Pulse Rate 80 77 Respiratory Rate 23 H 23 H Blood Pressure Pulse Oximetry 93 Oxygen Delivery BiPAP BiPAP Oxygen Flow Rate Fraction of Inspired Oxygen 40 05/15/24 04:00 05/15/24 04:00 05/15/24 05:15 Temperature 36.2 C L Pulse Rate 83 83 80 Respiratory Rate 22 H 22 H Blood Pressure 163/79 H Pulse Oximetry 91 97 Oxygen Delivery BiPAP Oxygen Flow Rate Fraction of Inspired Oxygen 05/15/24 08:01 05/15/24 08:01 05/15/24 08:08 Temperature Pulse Rate 92 93 Respiratory Rate 24 H 22 H Blood Pressure Pulse Oximetry 91 Oxygen Delivery High Flow Therapy with Na Oxygen Flow Rate 35 Fraction of Inspired Oxygen 40 05/15/24 08:00 05/15/24 08:00 05/15/24 09:24 Temperature 36.6 C Pulse Rate 95 Respiratory Rate 20 Blood Pressure 180/71 H Pulse Oximetry 95 95 93 Oxygen Delivery High Flow Therapy with Na High Flow Therapy with Na Oxygen Flow Rate 35 35 Fraction of Inspired Oxygen 40 35 05/15/24 10:50 Temperature Pulse Rate Respiratory Rate Blood Pressure Pulse Oximetry 94 Oxygen Delivery High Flow Therapy with Na Oxygen Flow Rate 35 Fraction of Inspired Oxygen 35 Intake/Output Intake/Output: Intake & Output 05/12/24 05/13/24 05/14/24 05/15/24 23:59 23:59 23:59 23:59 Intake Total 2383.3 2770 1310 500 Output Total 120 300 850 900 Balance 2263.3 2470 460 -400 Meds/Results Medications: Active Medications Generic Name Dose Route Start Last Admin Trade Name Freq PRN Reason Stop Dose Admin Acetaminophen 650 mg 05/11/24 18:35 05/12/24 08:08 Acetaminophen 325 Mg Tablet PO 650 mg Q4H PRN Administration Mild Pain (1-3) or Fever Albuterol/Ipratropium 3 ml 05/12/24 02:00 05/15/24 08:01 Ipratropium 0.5 Mg/Albuterol Sulfate 2.5 Mg Ampul.Neb 3 Ml INHALATION 3 ml Q6HRT SANGEETA Administration Aspirin 81 mg 05/12/24 09:00 05/14/24 08:38 Aspirin 81 Mg Enteric Tablet PO 81 mg DAILY SANGEETA Administration Carvedilol 6.25 mg 05/15/24 21:00 Carvedilol 6.25 Mg Tablet PO Q12HR SANGEETA Clopidogrel Bisulfate 75 mg 05/12/24 09:00 05/14/24 08:38 Clopidogrel Bisulfate 75 Mg Tablet PO 75 mg DAILY SANGEETA Administration Dextrose 12.5 gm 05/11/24 22:22 Dextrose 50% 25 Gm/50 Ml Syringe IV PUSH PRN PRN Hypoglycemia Protocol Doxycycline Hyclate 100 mg 05/14/24 21:00 05/14/24 20:45 Doxycycline Hyclate 100 Mg Tablet PO 05/15/24 21:01 100 mg Q12HR SANGEETA Administration Famotidine 20 mg 05/14/24 09:00 05/14/24 08:39 Famotidine 20 Mg/2 Ml Vial IV PUSH 20 mg DAILY SANGEETA Administration Fluticasone/Umeclidinium/Vilanterol 1 puff 05/12/24 08:00 05/15/24 08:08 Fluticasone/Umeclidin/Vilanter 100-62.5-25 Mcg Ellipta INHALATION 1 puff DAILYRT SANGEETA Administration Glucagon 1 mg 05/11/24 22:22 Glucagon For Inj 1 Mg Vial IM PRN PRN Hypoglycemia Protocol Glucose 15 gm 05/11/24 22:22 Glucose Oral Gel 15 Gm Of Glucse In 37.5 Gm Tube PO PRN PRN Hypoglycemia Protocol Guaifenesin 1,200 mg 05/12/24 09:00 05/14/24 20:45 Guaifenesin 12 Hr 600 Mg Tabcr PO 1,200 mg Q12HR SANGEETA Administration Heparin Sodium (Porcine) 5,000 units 05/12/24 09:00 05/14/24 20:45 Heparin Sodium 5,000 Units/Ml Vial SUB-Q 5,000 units Q12HR SANGEETA Administration Hydrocortisone Sodium Succinate 50 mg 05/12/24 08:30 05/15/24 05:56 Hydrocortisone Sodium Succinate 100 Mg/2 Ml Vial IV PUSH 50 mg Q6HR SANGEETA Administration Dextrose 1,000 mls @ 100 mls/hr 05/11/24 22:22 Dextrose 5% 1,000 Ml IVPB PRN PRN Hypoglycemia Protocol Ceftriaxone Sodium 2 gm in 100 mls @ 200 mls/hr 05/14/24 10:15 05/14/24 12:31 Rocephin 2 Gm/Ns 100 Ml IVPB Infused QAM SANGEETA Infusion Insulin Aspart 4 - 8 units 05/12/24 08:25 05/15/24 09:03 Insulin Aspart (*Bkc) 100 Units/Ml SUB-Q Not Given Q4H SANGEETA Protocol Levothyroxine Sodium 75 mcg 05/12/24 06:30 05/15/24 05:56 Levothyroxine Sodium 75 Mcg Tablet PO 75 mcg DAILY@0630 SANGEETA Administration Ondansetron HCl 4 mg 05/11/24 18:35 Ondansetron Inj 4 Mg/2 Ml Vial IV PUSH Q4H PRN Nausea Rosuvastatin Calcium 40 mg 05/12/24 09:00 05/13/24 08:58 Rosuvastatin 20 Mg Tablet PO 40 mg DAILY SANGEETA Administration Radiology Results: ITS Impressions Chest/Abdomen/Pelvis CT 05/11/24 18:29 IMPRESSION: Extensive right upper lobe, middle lobe and left lower lobe consolidating pneumonia, with mild mediastinal reactive lymph node enlargement Occasional pulmonary nodules, likely related to pulmonary granulomatous disease 29 x 31 mm left adrenal low-attenuation mass, likely due to adrenal adenoma, less likely metastasis Normal appendix Minimal sigmoid diverticulosis; no evidence of diverticulitis Moderate prostatomegaly 2. Fusiform infrarenal abdominal aortic aneurysms, measuring up to 4 cm Central venous right common femoral catheter in right common femoral vein Renal Ultrasound 05/12/24 15:15 IMPRESSION: Unremarkable renal sonogram findings. Carotid Doppler Study 05/12/24 15:34 IMPRESSION: 1. <50% stenosis in the right internal carotid artery. 2. 50-69% stenosis in the left internal carotid artery. Chest X-Ray 05/15/24 06:30 IMPRESSION: 1. There is been some interval improvement in bilateral airspace opacities greatest in the right mid and left lower lung zones consistent with pneumonia 2. Small left pleural effusion. Labs Labs: Laboratory Results - last 24 hr 05/14/24 05/14/24 05/14/24 04:33 11:13 16:09 WBC RBC Hgb Hct MCV MCH MCHC RDW Plt Count MPV Immature Gran % (Auto) Neut % (Auto) Lymph % (Auto) [place] % (Auto) Eos % (Auto) Baso % (Auto) Lymph # (Auto) [place] # (Auto) Eos # (Auto) Baso # (Auto) Abs Immat Gran (auto) Absolute Neuts (auto) Absolute Nucleated RBC Total Counted Neutrophils % (Manual) Lymphocytes % (Manual) Monocytes % (Manual) Nucleated RBC % Abs Lymphs (Manual) Abs Monocytes (Manual) Smudge Cells Platelet Estimate Hypochromasia Anisocytosis Ovalocytes Schistocytes Puncture Site ABG pH ABG pCO2 ABG pO2 ABG PO2/FiO2 Ratio ABG HCO3 ABG O2 Saturation ABG O2 Content ABG Base Excess A-a Gradient Oxyhemoglobin Carboxyhemoglobin Methemoglobin Reduced Hemoglobin Total Hemoglobin O2 Delivery Device O2 Liters/Min Vent Rate FiO2 Expiratory Pressure Inspiratory Pressure Sodium Potassium Chloride Carbon Dioxide Anion Gap BUN Creatinine Estim Creat Clear Calc Estimated GFR Glucose POC Capillary Glucose 158 H 199 H Lactic Acid Calcium Phosphorus Magnesium Total Bilirubin AST ALT Alkaline Phosphatase Total Protein Albumin Random Vancomycin Hep B Core Total Ab Non-reactive 05/14/24 05/15/24 05/15/24 20:41 00:02 04:04 WBC 15.5 H RBC 3.13 L Hgb 9.1 L Hct 26.1 L MCV 83.4 MCH 29.1 MCHC 34.9 RDW 14.3 Plt Count 225 MPV 9.1 Immature Gran % (Auto) Not Reportable Neut % (Auto) Not Reportable Lymph % (Auto) Not Reportable [place] % (Auto) Not Reportable Eos % (Auto) Not Reportable Baso % (Auto) Not Reportable Lymph # (Auto) Not Reportable [place] # (Auto) Not Reportable Eos # (Auto) Not Reportable Baso # (Auto) Not Reportable Abs Immat Gran (auto) Not Reportable Absolute Neuts (auto) Not Reportable Absolute Nucleated RBC Not Reportable Total Counted 100 Neutrophils % (Manual) 92 H Lymphocytes % (Manual) 4.0 L Monocytes % (Manual) 4 Nucleated RBC % Not Reportable Abs Lymphs (Manual) 0.62 L Abs Monocytes (Manual) 0.62 Smudge Cells Present Platelet Estimate Adequate Hypochromasia 1+ Anisocytosis 1+ Ovalocytes 1+ Schistocytes None seen Puncture Site ABG pH ABG pCO2 ABG pO2 ABG PO2/FiO2 Ratio ABG HCO3 ABG O2 Saturation ABG O2 Content ABG Base Excess A-a Gradient Oxyhemoglobin Carboxyhemoglobin Methemoglobin Reduced Hemoglobin Total Hemoglobin O2 Delivery Device O2 Liters/Min Vent Rate FiO2 Expiratory Pressure Inspiratory Pressure Sodium 139 Potassium 3.2 L Chloride 103 Carbon Dioxide 17 L Anion Gap 19 H BUN 119 H D Creatinine 6.90 H Estim Creat Clear Calc 8 Estimated GFR 8 L Glucose 174 H POC Capillary Glucose 184 H 180 H Lactic Acid 0.6 L Calcium 7.3 L Phosphorus 5.4 H Magnesium 2.6 H Total Bilirubin 0.7 AST 70 H ALT 49 Alkaline Phosphatase 105 Total Protein 7.0 Albumin 3.6 Random Vancomycin Hep B Core Total Ab 05/15/24 05/15/24 05/15/24 04:51 08:13 08:53 WBC RBC Hgb Hct MCV MCH MCHC RDW Plt Count MPV Immature Gran % (Auto) Neut % (Auto) Lymph % (Auto) [place] % (Auto) Eos % (Auto) Baso % (Auto) Lymph # (Auto) [place] # (Auto) Eos # (Auto) Baso # (Auto) Abs Immat Gran (auto) Absolute Neuts (auto) Absolute Nucleated RBC Total Counted Neutrophils % (Manual) Lymphocytes % (Manual) Monocytes % (Manual) Nucleated RBC % Abs Lymphs (Manual) Abs Monocytes (Manual) Smudge Cells Platelet Estimate Hypochromasia Anisocytosis Ovalocytes Schistocytes Puncture Site Right radial ABG pH 7.410 ABG pCO2 24.0 L ABG pO2 85.3 ABG PO2/FiO2 Ratio 2.13 ABG HCO3 14.9 L ABG O2 Saturation 96.8 ABG O2 Content 12.0 L ABG Base Excess -8.5 A-a Gradient 172.3 Oxyhemoglobin 95.0 Carboxyhemoglobin 0.3 Methemoglobin 0.3 Reduced Hemoglobin 4.4 Total Hemoglobin 8.9 L O2 Delivery Device Non-invasive vent O2 Liters/Min Not Reportable Vent Rate 12 FiO2 40 Expiratory Pressure 6 Inspiratory Pressure 12 Sodium Potassium Chloride Carbon Dioxide Anion Gap BUN Creatinine Estim Creat Clear Calc Estimated GFR Glucose POC Capillary Glucose 189 H Lactic Acid Calcium Phosphorus Magnesium Total Bilirubin AST ALT Alkaline Phosphatase Total Protein Albumin Random Vancomycin 25.0 H Hep B Core Total Ab Quality VTE Prophylaxis VTE prophylaxis: mechanical ordered and pharmacologic ordered
[2024-05-15] MEDS: CLOPIDOGREL BISULFATE 75 MG TABLET PO (11:28)
[2024-05-15] MEDS: guaiFENesin 12 HR 600 MG TABCR 1200 MG PO ×2 (11:28→20:30)
[2024-05-15] MEDS: FAMOTIDINE 20 MG/2 ML VIAL IV PUSH (11:28)
[2024-05-15] MEDS: ASPIRIN 81 MG ENTERIC TABLET PO (11:29)
[2024-05-15] MEDS: carvediloL 3.125 MG TABLET 6.25 MG PO (11:29)
[2024-05-15] MEDS: DOXYCYCLINE HYCLATE 100 MG TABLET PO ×2 (11:29→20:30)
[2024-05-15] MEDS: HEPARIN SODIUM 5,000 UNITS/ML VIAL 5000 UNITS SUB-Q ×2 (11:30→20:30)
[2024-05-15] MEDS: cefTRIAXone 2 GM/NS 100 ML 2 GM/100 ML BAG IVPB (11:30)
[2024-05-15 12:18] LABS: Glucose Point of Care 191 mg/dl (65-105)
[2024-05-15] MEDS: POTASSIUM CHLORIDE 20 MEQ ER TABLET PO (12:31)
[2024-05-15 16:05] LABS: Glucose Point of Care 247 mg/dl (65-105)
[2024-05-15] MEDS: INSULIN ASPART (*BKC) 100 UNITS/ML SUB-Q ×2 (16:16→20:36)
[2024-05-15 17:24] LABS: Pneumococcal Antigen Urine DETECTED
--- NOTE | 2024-05-15 18:09 | PC.NURSE ---
educator senior clinical called and voicemail left for consult.
[2024-05-15] MEDS: carvediloL 6.25 MG TABLET PO (20:30)
[2024-05-15 22:09] LABS: Glucose Point of Care 222 mg/dl (65-105)
[2024-05-16] VITALS (33 sets, daily range): BP systolic 109–169; BP diastolic 59–67; PULSE 52–91; RESP 12–24; TEMP 36.3–36.4; O2SAT 90–99
[2024-05-16] MEDS: HYDROCORTISONE SODIUM SUCCINATE 100 MG/2 ML VIAL 50 MG IV PUSH ×4 (00:05→17:36)
[2024-05-16] MEDS: hydrALAZINE HCL 20 MG/ML VIAL 10 MG IV PUSH (00:13)
[2024-05-16] MEDS: IPRATROPIUM 0.5 MG/ALBUTEROL SULFATE 2.5 MG AMPUL.NEB 3 ML INHALATION ×4 (02:37→20:53)
[2024-05-16 05:05] LABS: Basophils Percent Auto 0.1 % (0.2-1.2); Hematocrit 22.5 % (42.0-52.0); Hemoglobin 7.7 g/dL (14.0-18.0); Immature Granulocyte Absolute 0.74 K/mm3 (0.00-0.031); Immature Granulocyte Percent A 4.5 % (0-0.5); Lymphocytes Percent Auto 6.1 % (18.3-44.2); Mean Corpuscular HGB Conc 34.2 g/dl (32-36); Mean Corpuscular Hemoglobin 28.7 pg (26-34); Mean Platelet Volume 9.7 fl (7.4-10.4); Monocytes Absolute Auto 1.2 K/mm3 (0.1-0.6); Monocytes Percent Auto 7.1 % (2.6-8.5); Neutrophils Absolute Auto 13.4 K/mm3 (1.3-6.7); Neutrophils Percent Auto 82.2 % (45.5-73.1); Platelet Count Result 211 k/mm3 (150-375); Red Blood Count 2.68 M/mm3 (4.6-6.20); Red Cell Distribution Width 14.1 % (11.5-14.5); White Blood Count 16.4 K/mm3 (4.5-10.0)
[2024-05-16 05:21] LABS: Alanine Aminotransferase 42 U/L (6-50); Albumin Level 3.1 g/dL (3.5-5.1); Alkaline Phosphatase 91 U/L (38-126); Anion Gap 15 mmol/L (4-12); Aspartate Amino Transferase 40 U/L (17-59); Bilirubin,Total 0.8 mg/dL (0.2-1.3); Calcium 7.2 mg/dL (8.4-10.2); Carbon Dioxide 15 mmol/L (22-30); Chloride 106 mmol/L (98-107); Estimated CRCL calculation 8 ml/min; Estimated Glomerular Filt Rate 8; Glucose 212 mg/dL (65-110); Magnesium 2.5 mg/dL (1.6-2.3); Potassium 3.2 mmol/L (3.4-5.0); Sodium 136 mmol/L (137-145)
[2024-05-16 05:29] LABS: Blood Urea Nitrogen 143 mg/dL (9-20)
[2024-05-16] MEDS: LEVOTHYROXINE SODIUM 75 MCG TABLET PO (06:25)
[2024-05-16] MEDS: FLUTICASONE/UMECLIDIN/VILANTER 100-62.5-25 MCG ELLIPTA 1 PUFF INHALATION (07:28)
--- NOTE | 2024-05-16 07:46 | P.PNCA_ITS ---
Progress Note: A&P Assessment and Plan (1) Syncope: Code(s): R55 - Syncope and collapse Status: Acute Assessment and Plan: Probably due to septic shock. (2) Multifocal pneumonia: Code(s): J18.9 - Pneumonia, unspecified organism Status: Acute Assessment and Plan: On antibiotics as per hospitalist. (3) Acute kidney injury: Code(s): N17.9 - Acute kidney failure, unspecified Status: Acute Assessment and Plan: Worsening. Probably due to septic shock. Nephrology following. (4) Tobacco dependence: Code(s): F17.200 - Nicotine dependence, unspecified, uncomplicated Status: Acute Assessment and Plan: Counseled regarding smoking cessation. (5) Hypertension: Code(s): I10 - Essential (primary) hypertension Status: Acute Assessment and Plan: High. Increase Coreg 12.5 mg BID and start Amlodipine 10 mg daily. Monitor. (6) Elevated troponin: Code(s): R79.89 - Other specified abnormal findings of blood chemistry Status: Acute Assessment and Plan: Troponin peaked at .102 and trending down. Due to septic shock, pneumonia, acute renal failure. Doubt ACS without chest pains, no EKG ST changes. (7) Systolic dysfunction: Code(s): I51.9 - Heart disease, unspecified Status: Acute Assessment and Plan: Appears euvolemic. 05/12/24 Echo: TDS. Mild LVE, EF 35-40%, mild LVH, grade I diastolic dysfunction, mild LAE, trace MR. Started HF medication which is his home medication Coreg. Not on John/ARB/Entresto or Jardiance as kidney function worsening. (8) Transaminitis: Code(s): R74.01 - Elevation of levels of liver transaminase levels Status: Acute Assessment and Plan: Resume Rosuvastatin as LFT normal now. Subjective Date/time seen: 05/16/24 07:46 Interval history: No chest pain or sob. Exam Const: General: cooperative, healthy appearing and comfortable Orientation/consciousness: oriented to person, oriented to place and oriented to time Resp: Auscultation: no crackles, no rales, no rhonchi, no wheezes and diminished lung sounds Cardio: Rate: regular rate Rhythm: regular rhythm Heart sounds: no murmurs Peripheral pulses: dorsalis pedis present Neuro: General: oriented to person, oriented to place and oriented to time Extrem: Right lower extremity: no edema Left lower extremity: no edema Objective Data Vital Signs Vital Signs: Vital Signs - 24 hr 05/15/24 08:01 05/15/24 08:01 05/15/24 08:08 Temperature Pulse Rate 92 93 Respiratory Rate 24 H 22 H Blood Pressure Pulse Oximetry 91 Oxygen Delivery High Flow Therapy with Na Oxygen Flow Rate 35 Fraction of Inspired Oxygen 40 05/15/24 08:00 05/15/24 08:00 05/15/24 09:24 Temperature 97.9 F Pulse Rate 95 Respiratory Rate 20 Blood Pressure 180/71 H Pulse Oximetry 95 95 93 Oxygen Delivery High Flow Therapy with Na High Flow Therapy with Na Oxygen Flow Rate 35 35 Fraction of Inspired Oxygen 40 35 05/15/24 10:50 05/15/24 11:29 05/15/24 12:00 Temperature 99 F Pulse Rate 89 90 Respiratory Rate 16 Blood Pressure 198/81 H Pulse Oximetry 94 94 Oxygen Delivery High Flow Therapy with Na Oxygen Flow Rate 35 Fraction of Inspired Oxygen 35 05/15/24 12:33 05/15/24 14:17 05/15/24 14:15 Temperature Pulse Rate Respiratory Rate Blood Pressure 165/70 H Pulse Oximetry 95 97 Oxygen Delivery High Flow Nasal Cannula High Flow Therapy with Na Oxygen Flow Rate 12 35 Fraction of Inspired Oxygen 30 05/15/24 14:19 05/15/24 14:19 05/15/24 12:00 Temperature Pulse Rate 73 Respiratory Rate 22 H Blood Pressure Pulse Oximetry 95 95 Oxygen Delivery High Flow Nasal Cannula High Flow Therapy with Na Oxygen Flow Rate 12 35 Fraction of Inspired Oxygen 30 05/15/24 14:27 05/15/24 08:00 05/15/24 10:00 Temperature Pulse Rate 89 89 Respiratory Rate Blood Pressure Pulse Oximetry 99 Oxygen Delivery High Flow Nasal Cannula Oxygen Flow Rate 12 Fraction of Inspired Oxygen 05/15/24 12:00 05/15/24 14:00 05/15/24 14:31 Temperature Pulse Rate 90 78 71 Respiratory Rate 20 Blood Pressure Pulse Oximetry Oxygen Delivery Oxygen Flow Rate Fraction of Inspired Oxygen 05/15/24 15:51 05/15/24 16:18 05/15/24 16:00 Temperature 98.5 F 98.4 F Pulse Rate 73 78 Respiratory Rate 21 H 23 H Blood Pressure 160/67 H 147/70 H Pulse Oximetry 99 99 100 Oxygen Delivery High Flow Nasal Cannula Oxygen Flow Rate 10 Fraction of Inspired Oxygen 05/15/24 16:00 05/15/24 18:00 05/15/24 19:17 Temperature 98.1 F Pulse Rate 74 82 80 Respiratory Rate 22 H Blood Pressure 154/81 H Pulse Oximetry 97 Oxygen Delivery Oxygen Flow Rate Fraction of Inspired Oxygen 05/15/24 20:30 05/15/24 21:09 05/15/24 21:14 Temperature Pulse Rate 77 74 74 Respiratory Rate 23 H 23 H Blood Pressure Pulse Oximetry 94 Oxygen Delivery BiPAP Oxygen Flow Rate Fraction of Inspired Oxygen 05/15/24 21:19 05/15/24 21:10 05/15/24 23:27 Temperature 96.8 F L Pulse Rate 79 70 Respiratory Rate 21 H 16 Blood Pressure 172/61 H Pulse Oximetry 93 99 Oxygen Delivery High Flow Nasal Cannula Oxygen Flow Rate 6 Fraction of Inspired Oxygen 05/16/24 00:12 05/16/24 02:37 05/16/24 02:35 Temperature 97.5 F L Pulse Rate 70 70 Respiratory Rate 24 H 24 H Blood Pressure Pulse Oximetry 97 Oxygen Delivery BiPAP Oxygen Flow Rate Fraction of Inspired Oxygen 05/16/24 02:46 05/16/24 04:00 05/15/24 20:00 Temperature 97.4 F L Pulse Rate 73 71 80 Respiratory Rate 22 H 23 H 22 H Blood Pressure 160/67 H Pulse Oximetry 99 97 Oxygen Delivery High Flow Nasal Cannula Oxygen Flow Rate 6 Fraction of Inspired Oxygen 05/16/24 00:00 05/16/24 04:00 05/16/24 05:15 Temperature Pulse Rate 70 71 74 Respiratory Rate 16 23 H 20 Blood Pressure Pulse Oximetry 99 99 96 Oxygen Delivery BiPAP BiPAP High Flow Nasal Cannula Oxygen Flow Rate 6 Fraction of Inspired Oxygen 40 40 05/15/24 20:00 05/15/24 22:00 05/16/24 00:00 Temperature Pulse Rate 80 74 68 Respiratory Rate Blood Pressure Pulse Oximetry Oxygen Delivery Oxygen Flow Rate Fraction of Inspired Oxygen 05/16/24 02:00 05/16/24 04:00 05/16/24 06:00 Temperature Pulse Rate 70 72 75 Respiratory Rate Blood Pressure Pulse Oximetry Oxygen Delivery Oxygen Flow Rate Fraction of Inspired Oxygen 05/16/24 07:30 05/16/24 07:31 05/16/24 07:37 Temperature Pulse Rate 75 89 Respiratory Rate 24 H 24 H Blood Pressure Pulse Oximetry 99 Oxygen Delivery High Flow Nasal Cannula Oxygen Flow Rate 6 Fraction of Inspired Oxygen Intake/Output Intake/Output: Intake & Output 05/13/24 05/14/24 05/15/24 05/16/24 23:59 23:59 23:59 23:59 Intake Total 2770 1310 1240 250 Output Total 719 240 7020 1120 Balance 2470 121 -139 -813 Meds/Results Medications: Active Medications Generic Name Dose Route Start Last Admin Trade Name Freq PRN Reason Stop Dose Admin Acetaminophen 650 mg 05/11/24 18:35 05/12/24 08:08 Acetaminophen 325 Mg Tablet PO 650 mg Q4H PRN Administration Mild Pain (1-3) or Fever Albuterol/Ipratropium 3 ml 05/12/24 02:00 05/16/24 07:28 Ipratropium 0.5 Mg/Albuterol Sulfate 2.5 Mg Ampul.Neb 3 Ml INHALATION 3 ml Q6HRT SANGEETA Administration Amlodipine Besylate 10 mg 05/16/24 09:00 Amlodipine Besylate 10 Mg Tablet PO DAILY SANGEETA Aspirin 81 mg 05/12/24 09:00 05/15/24 11:29 Aspirin 81 Mg Enteric Tablet PO 81 mg DAILY SANGEETA Administration Carvedilol 12.5 mg 05/16/24 09:00 Carvedilol 12.5 Mg Tablet PO Q12HR SANGEETA Clopidogrel Bisulfate 75 mg 05/12/24 09:00 05/15/24 11:28 Clopidogrel Bisulfate 75 Mg Tablet PO 75 mg DAILY SANGEETA Administration Dextrose 12.5 gm 05/11/24 22:22 Dextrose 50% 25 Gm/50 Ml Syringe IV PUSH PRN PRN Hypoglycemia Protocol Famotidine 20 mg 05/14/24 09:00 05/15/24 11:28 Famotidine 20 Mg/2 Ml Vial IV PUSH 20 mg DAILY SANGEETA Administration Fluticasone/Umeclidinium/Vilanterol 1 puff 05/12/24 08:00 05/16/24 07:28 Fluticasone/Umeclidin/Vilanter 100-62.5-25 Mcg Ellipta INHALATION 1 puff DAILYRT SANGEETA Administration Glucagon 1 mg 05/11/24 22:22 Glucagon For Inj 1 Mg Vial IM PRN PRN Hypoglycemia Protocol Glucose 15 gm 05/11/24 22:22 Glucose Oral Gel 15 Gm Of Glucse In 37.5 Gm Tube PO PRN PRN Hypoglycemia Protocol Guaifenesin 1,200 mg 05/12/24 09:00 05/15/24 20:30 Guaifenesin 12 Hr 600 Mg Tabcr PO 1,200 mg Q12HR SANGEETA Administration Heparin Sodium (Porcine) 5,000 units 05/12/24 09:00 05/15/24 20:30 Heparin Sodium 5,000 Units/Ml Vial SUB-Q 5,000 units Q12HR SANGEETA Administration Hydralazine HCl 10 mg 05/15/24 17:22 05/16/24 00:13 Hydralazine Hcl 20 Mg/Ml Vial IV PUSH 10 mg Q6H PRN Administration Blood Pressure - High Hydrocortisone Sodium Succinate 50 mg 05/12/24 08:30 05/16/24 06:25 Hydrocortisone Sodium Succinate 100 Mg/2 Ml Vial IV PUSH 50 mg Q6HR SANGEETA Administration Dextrose 1,000 mls @ 100 mls/hr 05/11/24 22:22 Dextrose 5% 1,000 Ml IVPB PRN PRN Hypoglycemia Protocol Ceftriaxone Sodium 2 gm in 100 mls @ 200 mls/hr 05/14/24 10:15 05/15/24 19:00 Rocephin 2 Gm/Ns 100 Ml IVPB Infused QAM SANGEETA Infusion Insulin Aspart 4 - 8 units 05/15/24 21:00 05/15/24 20:36 Insulin Aspart (*Bkc) 100 Units/Ml SUB-Q 4 units 0800,1200,1700,2100 SANGEETA Administration Protocol Levothyroxine Sodium 75 mcg 05/12/24 06:30 05/16/24 06:25 Levothyroxine Sodium 75 Mcg Tablet PO 75 mcg DAILY@0630 SANGEETA Administration Ondansetron HCl 4 mg 05/11/24 18:35 Ondansetron Inj 4 Mg/2 Ml Vial IV PUSH Q4H PRN Nausea Rosuvastatin Calcium 40 mg 05/12/24 09:00 05/13/24 08:58 Rosuvastatin 20 Mg Tablet PO 40 mg DAILY SANGEETA Administration Radiology Results: ITS Impressions Chest/Abdomen/Pelvis CT 05/11/24 18:29 IMPRESSION: Extensive right upper lobe, middle lobe and left lower lobe consolidating pneumonia, with mild mediastinal reactive lymph node enlargement Occasional pulmonary nodules, likely related to pulmonary granulomatous disease 29 x 31 mm left adrenal low-attenuation mass, likely due to adrenal adenoma, less likely metastasis Normal appendix Minimal sigmoid diverticulosis; no evidence of diverticulitis Moderate prostatomegaly 2. Fusiform infrarenal abdominal aortic aneurysms, measuring up to 4 cm Central venous right common femoral catheter in right common femoral vein Renal Ultrasound 05/12/24 15:15 IMPRESSION: Unremarkable renal sonogram findings. Carotid Doppler Study 05/12/24 15:34 IMPRESSION: 1. <50% stenosis in the right internal carotid artery. 2. 50-69% stenosis in the left internal carotid artery. Chest X-Ray 05/15/24 06:30 IMPRESSION: 1. There is been some interval improvement in bilateral airspace opacities greatest in the right mid and left lower lung zones consistent with pneumonia 2. Small left pleural effusion. Labs Labs: Laboratory Results - last 24 hr 05/12/24 05/15/24 05/15/24 01:13 08:13 08:53 WBC RBC Hgb Hct MCV MCH MCHC RDW Plt Count MPV Immature Gran % (Auto) Neut % (Auto) Lymph % (Auto) [place] % (Auto) Eos % (Auto) Baso % (Auto) Lymph # (Auto) [place] # (Auto) Eos # (Auto) Baso # (Auto) Abs Immat Gran (auto) Absolute Neuts (auto) Absolute Nucleated RBC Nucleated RBC % Sodium Potassium Chloride Carbon Dioxide Anion Gap BUN Creatinine Estim Creat Clear Calc Estimated GFR Glucose POC Capillary Glucose 189 H Calcium Phosphorus Magnesium Total Bilirubin AST ALT Alkaline Phosphatase Total Protein Albumin Random Vancomycin 25.0 H Urine Pneumococcal Ag Detected A 05/15/24 05/15/24 05/15/24 11:31 15:54 20:28 WBC RBC Hgb Hct MCV MCH MCHC RDW Plt Count MPV Immature Gran % (Auto) Neut % (Auto) Lymph % (Auto) [place] % (Auto) Eos % (Auto) Baso % (Auto) Lymph # (Auto) [place] # (Auto) Eos # (Auto) Baso # (Auto) Abs Immat Gran (auto) Absolute Neuts (auto) Absolute Nucleated RBC Nucleated RBC % Sodium Potassium Chloride Carbon Dioxide Anion Gap BUN Creatinine Estim Creat Clear Calc Estimated GFR Glucose POC Capillary Glucose 191 H 247 H 222 H Calcium Phosphorus Magnesium Total Bilirubin AST ALT Alkaline Phosphatase Total Protein Albumin Random Vancomycin Urine Pneumococcal Ag 05/16/24 04:28 WBC 16.4 H RBC 2.68 L Hgb 7.7 L Hct 22.5 L MCV 84.0 MCH 28.7 MCHC 34.2 RDW 14.1 Plt Count 211 MPV 9.7 Immature Gran % (Auto) 4.5 H Neut % (Auto) 82.2 H Lymph % (Auto) 6.1 L [place] % (Auto) 7.1 Eos % (Auto) 0.0 Baso % (Auto) 0.1 L Lymph # (Auto) 1.00 [place] # (Auto) 1.2 H Eos # (Auto) 0.0 Baso # (Auto) 0.0 Abs Immat Gran (auto) 0.74 H Absolute Neuts (auto) 13.4 H Absolute Nucleated RBC 0.000 Nucleated RBC % 0.0 Sodium 136 L Potassium 3.2 L Chloride 106 Carbon Dioxide 15 L Anion Gap 15 H BUN 143 H D Creatinine 7.00 H Estim Creat Clear Calc 8 Estimated GFR 8 L Glucose 212 H POC Capillary Glucose Calcium 7.2 L Phosphorus 5.0 H Magnesium 2.5 H Total Bilirubin 0.8 AST 40 ALT 42 Alkaline Phosphatase 91 Total Protein 6.0 L Albumin 3.1 L Random Vancomycin Urine Pneumococcal Ag
[2024-05-16 08:18] LABS: Glucose Point of Care 268 mg/dl (65-105)
[2024-05-16] MEDS: INSULIN ASPART (*BKC) 100 UNITS/ML SUB-Q ×2 (09:00→20:48)
[2024-05-16] MEDS: FAMOTIDINE 20 MG/2 ML VIAL IV PUSH (09:00)
[2024-05-16] MEDS: HEPARIN SODIUM 5,000 UNITS/ML VIAL 5000 UNITS SUB-Q (09:02)
[2024-05-16] MEDS: guaiFENesin 12 HR 600 MG TABCR 1200 MG PO ×2 (09:03→20:35)
[2024-05-16] MEDS: ROSUVASTATIN 20 MG TABLET 40 MG PO (09:03)
[2024-05-16] MEDS: POTASSIUM CHLORIDE 20 MEQ ER TABLET PO (09:03)
[2024-05-16] MEDS: CLOPIDOGREL BISULFATE 75 MG TABLET PO (09:04)
[2024-05-16] MEDS: amLODIPine BESYLATE 10 MG TABLET PO (09:04)
[2024-05-16] MEDS: ASPIRIN 81 MG ENTERIC TABLET PO (09:04)
[2024-05-16] MEDS: cefTRIAXone 2 GM/NS 100 ML 2 GM/100 ML BAG IVPB (09:04)
[2024-05-16] MEDS: carvediloL 12.5 MG TABLET PO ×2 (09:05→20:35)
--- NOTE | 2024-05-16 10:32 | P.PNNP_ITS ---
Progress Note: A&P Assessment and Plan (1) Acute kidney injury: Code(s): N17.9 - Acute kidney failure, unspecified Status: Acute Assessment and Plan: * as noted on admission with a creatinine of 4.4mg/dl * unfortunately, only recent labs to compare to are from 2019 (see #2) * evaluation to date noted: * admission CT scan without obstruction * urine electrolytes prerenal * urine eosinophils negative * UA with blood and moderate proteinuria * CPK mildly elevated (probably not enough to affect kidney function) * suspect insult due several issues: * hemodynamic instability/shock * sepsis/infection (bacteremia) * prerenal factors * 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 (3) Septic shock: Code(s): A41.9 - Sepsis, unspecified organism; R65.21 - Severe sepsis with septic shock Status: Acute Assessment and Plan: * thought to be secondary to pneumonia and possibly UTI * s/p aggressive IVF resuscitation * off vasopressor therapy at this time * follow culture data - 05/11 blood cultures with Streptococcus pneumoniae * urine culture negative * follow repeat cultures * on antibiotic therapy * follow trend of hemodynamics (4) Acute respiratory failure: Code(s): J96.00 - Acute respiratory failure, unspecified whether with hypoxia or hypercapnia Status: Acute Assessment and Plan: * due to severe/significant pneumonia as noted by admission imaging * no respiratory distress but noted profound hypoxia on admission * complicated by known history of COPD * using BiPAP and high-flow oxygen mask to maintain oxygen saturations with ongoing weaning noted * at risk for intubation and mechanical ventilation * continue bronchodilators and antibiotic therapy * Echo results noted * follow respiratory status (5) Systolic CHF: Code(s): I50.20 - Unspecified systolic (congestive) heart failure Status: Acute Assessment and Plan: * acute versus chronic? * Echo results noted: * left ventricular systolic function is moderately globally reduced - estimated at 35-40% * left ventricular diastolic function is grade I diastolic dysfunction * mild aortic valve sclerosis * trace mitral valve regurgitation * volume status appears stable * Cardiology following (6) Multifocal pneumonia: Code(s): J18.9 - Pneumonia, unspecified organism Status: Acute Assessment and Plan: * as noted by admission imaging * continue respiratory support * culture data noted * on antibiotics (7) Anemia: Qualifiers: Anemia type: unspecified type Qualified Code(s): D64.9 - Anemia, unspecified Code(s): D64.9 - Anemia, unspecified Status: Acute Assessment and Plan: * due to LEIA, CKD, and acute illness * start Retacrit while inpatient * follow trend of H/H (8) Chronic obstructive pulmonary disease: Qualifiers: COPD type: emphysema Emphysema type: unspecified Qualified Code(s): J43.9 - Emphysema, unspecified Code(s): J44.9 - Chronic obstructive pulmonary disease, unspecified Status: Chronic Assessment and Plan: * known history * see #4 (9) Type 2 diabetes mellitus: Code(s): E11.9 - Type 2 diabetes mellitus without complications Status: Acute Assessment and Plan: * follow accu-cheks * glycemic control per ladle operator/hospitalists Will continue to follow. Subjective Date/time seen: 05/16/24 10:32 Interval history: Follow-up for acute kidney injury/acute renal failure on chronic kidney disease. Breathing/respiratory status continues to slowly improve with decreasing oxygen requirements; renal function/creatinine remains elevated but rate of rise has lessened and good urine output noted in the last 24 - 48 hours; no apparent distress voiced when seen; no issues/events overnight or earlier this morning. Exam Narrative: General: elderly but WD/WN male in NAD Heart: normal S1 and S2; no rub Lungs: coarse with a few bibasilar crackles Abdomen: soft, nontender, nondistended, positive bowel sounds Extremities: no cyanosis or clubbing; no edema Skin: no rash Objective Data Vital Signs Vital Signs: Vital Signs Temp Pulse Resp BP Pulse Ox O2 Del Method O2 Flow Rate 05/16/24 10:26 97.4 F L 71 22 H 109/63 96 05/16/24 09:05 84 05/16/24 08:13 96 High Flow Nasal Cannula 4 05/16/24 07:48 97.5 F L 82 24 H 169/61 H 97 05/16/24 07:37 89 24 H 05/16/24 07:31 75 24 H 05/16/24 07:30 99 High Flow Nasal Cannula 6 05/16/24 06:00 75 05/16/24 04:00 72 05/16/24 02:00 70 05/16/24 00:00 68 05/15/24 22:00 74 05/15/24 20:00 80 05/16/24 05:15 74 20 96 High Flow Nasal Cannula 6 05/16/24 04:00 71 23 H 99 BiPAP 05/16/24 00:00 70 16 99 BiPAP 05/15/24 20:00 80 22 H 97 High Flow Nasal Cannula 6 05/16/24 04:00 97.4 F L 71 23 H 160/67 H 99 05/16/24 02:46 73 22 H 05/16/24 02:35 70 24 H 97 BiPAP 05/16/24 02:37 70 24 H 05/16/24 00:12 97.5 F L 05/15/24 23:27 96.8 F L 70 16 172/61 H 99 05/15/24 21:10 93 High Flow Nasal Cannula 6 05/15/24 21:19 79 21 H 05/15/24 21:14 74 23 H 94 BiPAP 05/15/24 21:09 74 23 H 05/15/24 20:30 77 05/15/24 19:17 98.1 F 80 22 H 154/81 H 97 05/15/24 18:00 82 05/15/24 16:00 74 05/15/24 16:00 100 High Flow Nasal Cannula 10 05/15/24 16:18 98.4 F 78 23 H 147/70 H 99 05/15/24 15:51 98.5 F 73 21 H 160/67 H 99 Intake/Output Intake/Output: Intake & Output 05/13/24 05/14/24 05/15/24 05/16/24 23:59 23:59 23:59 23:59 Intake Total 2770 1310 1240 610 Output Total 219 443 4929 1120 Balance 2470 402 -678 -516 Meds/Results Medications: Active Medications Generic Name Dose Route Start Last Admin Trade Name Freq PRN Reason Stop Dose Admin Acetaminophen 650 mg 05/11/24 18:35 05/12/24 08:08 Acetaminophen 325 Mg Tablet PO 650 mg Q4H PRN Administration Mild Pain (1-3) or Fever Albuterol/Ipratropium 3 ml 05/12/24 02:00 05/16/24 13:48 Ipratropium 0.5 Mg/Albuterol Sulfate 2.5 Mg Ampul.Neb 3 Ml INHALATION 3 ml Q6HRT SANGEETA Administration Amlodipine Besylate 10 mg 05/16/24 09:00 05/16/24 09:04 Amlodipine Besylate 10 Mg Tablet PO 10 mg DAILY SANGEETA Administration Aspirin 81 mg 05/12/24 09:00 05/16/24 09:04 Aspirin 81 Mg Enteric Tablet PO 81 mg DAILY SANGEETA Administration Carvedilol 12.5 mg 05/16/24 09:00 05/16/24 09:05 Carvedilol 12.5 Mg Tablet PO 12.5 mg Q12HR SANGEETA Administration Clopidogrel Bisulfate 75 mg 05/12/24 09:00 05/16/24 09:04 Clopidogrel Bisulfate 75 Mg Tablet PO 75 mg DAILY SANGEETA Administration Dextrose 12.5 gm 05/11/24 22:22 Dextrose 50% 25 Gm/50 Ml Syringe IV PUSH PRN PRN Hypoglycemia Protocol Famotidine 20 mg 05/14/24 09:00 05/16/24 09:00 Famotidine 20 Mg/2 Ml Vial IV PUSH 20 mg DAILY SANGEETA Administration Fluticasone/Umeclidinium/Vilanterol 1 puff 05/12/24 08:00 05/16/24 07:28 Fluticasone/Umeclidin/Vilanter 100-62.5-25 Mcg Ellipta INHALATION 1 puff DAILYRT SANGEETA Administration Glucagon 1 mg 05/11/24 22:22 Glucagon For Inj 1 Mg Vial IM PRN PRN Hypoglycemia Protocol Glucose 15 gm 05/11/24 22:22 Glucose Oral Gel 15 Gm Of Glucse In 37.5 Gm Tube PO PRN PRN Hypoglycemia Protocol Guaifenesin 1,200 mg 05/12/24 09:00 05/16/24 09:03 Guaifenesin 12 Hr 600 Mg Tabcr PO 1,200 mg Q12HR SANGEETA Administration Heparin Sodium (Porcine) 5,000 units 05/12/24 09:00 05/16/24 09:02 Heparin Sodium 5,000 Units/Ml Vial SUB-Q 5,000 units Q12HR SANGEETA Administration Hydralazine HCl 10 mg 05/15/24 17:22 05/16/24 00:13 Hydralazine Hcl 20 Mg/Ml Vial IV PUSH 10 mg Q6H PRN Administration Blood Pressure - High Hydrocortisone Sodium Succinate 50 mg 05/12/24 08:30 05/16/24 13:07 Hydrocortisone Sodium Succinate 100 Mg/2 Ml Vial IV PUSH 50 mg Q6HR SANGEETA Administration Dextrose 1,000 mls @ 100 mls/hr 05/11/24 22:22 Dextrose 5% 1,000 Ml IVPB PRN PRN Hypoglycemia Protocol Ceftriaxone Sodium 2 gm in 100 mls @ 200 mls/hr 05/14/24 10:15 05/16/24 09:04 Rocephin 2 Gm/Ns 100 Ml IVPB 200 mls/hr QAM SANGEETA Administration Insulin Aspart 4 - 8 units 05/15/24 21:00 05/16/24 11:50 Insulin Aspart (*Bkc) 100 Units/Ml SUB-Q Not Given 0800,1200,1700,2100 [facility] Protocol Levothyroxine Sodium 75 mcg 05/12/24 06:30 05/16/24 06:25 Levothyroxine Sodium 75 Mcg Tablet PO 75 mcg DAILY@0630 SANGEETA Administration Ondansetron HCl 4 mg 05/11/24 18:35 Ondansetron Inj 4 Mg/2 Ml Vial IV PUSH Q4H PRN Nausea Pantoprazole Sodium 40 mg 05/16/24 21:00 Pantoprazole Sodium Iv 40 Mg Vial IV PUSH Q12HR [facility] Rosuvastatin Calcium 40 mg 05/12/24 09:00 05/16/24 09:03 Rosuvastatin 20 Mg Tablet PO 40 mg DAILY SANGEETA Administration Radiology Results: ITS Impressions Chest/Abdomen/Pelvis CT 05/11/24 18:29 IMPRESSION: Extensive right upper lobe, middle lobe and left lower lobe consolidating pneumonia, with mild mediastinal reactive lymph node enlargement Occasional pulmonary nodules, likely related to pulmonary granulomatous disease 29 x 31 mm left adrenal low-attenuation mass, likely due to adrenal adenoma, less likely metastasis Normal appendix Minimal sigmoid diverticulosis; no evidence of diverticulitis Moderate prostatomegaly 2. Fusiform infrarenal abdominal aortic aneurysms, measuring up to 4 cm Central venous right common femoral catheter in right common femoral vein Renal Ultrasound 05/12/24 15:15 IMPRESSION: Unremarkable renal sonogram findings. Carotid Doppler Study 05/12/24 15:34 IMPRESSION: 1. <50% stenosis in the right internal carotid artery. 2. 50-69% stenosis in the left internal carotid artery. Chest X-Ray 05/15/24 06:30 IMPRESSION: 1. There is been some interval improvement in bilateral airspace opacities greatest in the right mid and left lower lung zones consistent with pneumonia 2. Small left pleural effusion. Labs Labs: Laboratory Tests 05/16/24 04:28 05/16/24 04:28 Calcium 7.2 L Phosphorus 5.0 H Magnesium 2.5 H Total Bilirubin 0.8 AST 40 ALT 42 Alkaline Phosphatase 91 Total Protein 6.0 L Albumin 3.1 L
[2024-05-16 11:52] LABS: Glucose Point of Care 175 mg/dl (65-105)
--- NOTE | 2024-05-16 12:31 | P.PNIM_ITS ---
Progress Note: A&P Assessment and Plan (1) Acute respiratory failure: Code(s): J96.00 - Acute respiratory failure, unspecified whether with hypoxia or hypercapnia Status: Acute Assessment and Plan: Patient has baseline COPD and now presented with pneumonia and hypoxic respiratory failure. Initially needed Airvo/non-rebreather mask because of hypoxia. Trial of BiPAP started in ICU. Chest x-ray and ABG reviewed Currently on oxygen via nasal cannula Continue bronchodilators antibiotics and steroid (2) Septic shock: Code(s): A41.9 - Sepsis, unspecified organism; R65.21 - Severe sepsis with septic shock Status: Acute Assessment and Plan: Septic shock secondary to pneumonia and UTI Patient has received IV fluid bolus and is now on maintenance IV fluids. Cautious IV fluids to minimize risk of volume overload Off pressors Continue Hydrocortisone for pneumonia 05/11: Blood cultures growing Streptococcus pneumonia 2/2 bottles, pansensitive 05/12: Urine culture NO growth -05/14: Discontinued vancomycin and cefepime -05/14: Started patient ceftriaxone, continue oral doxycycline - urine Legionella and pneumococcal antigen pending Lactic acid has normalized 05/12/2024: Echocardiogram Summary 1. Technically suboptimal study due to poor sonographic images. 2. Definity contrast administered improved wall motion interpretation. 3. Left ventricular chamber dimension is mildly enlarged. 4. Left ventricular systolic function is moderately globally reduced, estimated at 35-40%. 5. There is mild concentric increased left ventricular wall thickness. 6. The left ventricular diastolic function is grade I diastolic dysfunction. 7. Left atrial chamber dimension is mildly enlarged. 8. There is mild aortic valve sclerosis. 9. There is trace mitral valve regurgitation. (3) Multifocal pneumonia: Code(s): J18.9 - Pneumonia, unspecified organism Status: Acute Assessment and Plan: See above (4) Acute kidney injury: Code(s): N17.9 - Acute kidney failure, unspecified Status: Acute Assessment and Plan: He presented with creatinine of 4.4. Baseline unknown as last recorded creatinine is from 2019 Creatinine continues to increase. Nephrology following (5) Type 2 diabetes mellitus: Code(s): E11.9 - Type 2 diabetes mellitus without complications Status: Acute Assessment and Plan: Sliding scale insulin Continue diabetic diet and heart healthy diet (6) Hypothyroidism: Code(s): E03.9 - Hypothyroidism, unspecified Status: Acute Assessment and Plan: Elevated TSH -continue levothyroxine (7) Elevated troponin: Code(s): R79.89 - Other specified abnormal findings of blood chemistry Status: Acute Assessment and Plan: Mildly elevated troponin in the setting of septic shock and acute kidney failure likely to monitor radiated ischemia. Thomas denies any chest pain. -troponins trending down -Continue aspirin Plavix and rosuvastatin -echocardiogram as above (8) Chronic obstructive pulmonary disease: Qualifiers: COPD type: emphysema Emphysema type: unspecified Qualified Code(s): J43.9 - Emphysema, unspecified Code(s): J44.9 - Chronic obstructive pulmonary disease, unspecified Status: Chronic Assessment and Plan: Continue NIPPV, steroids, bronchodilators (9) Electrolyte abnormality: Code(s): E87.8 - Other disorders of electrolyte and fluid balance, not elsewhere classified Status: Acute Assessment and Plan: Magnesium is normalized after replacement Replace potassium as needed Plan DVT prophylaxis -subcutaneous heparin which will be held due to anemia Stress ulcer prophylaxis -Protonix Nutrition -heart healthy diet Anemia: Check FOBT Code Status: Full code Subjective Date/time seen: 05/16/24 12:31 Interval history: No overnight events. Oxygen requirement has lowered. Reports breathing is better. Nursing reported some dark stool. Review of Systems Review of Systems: All systems reviewed & are unremarkable except as noted in HPI and below Exam Narrative: General: Pt is alert awake and in no significant distress Lungs/Chest: Air entry is decreased, few rales at bases. Cardiac: RRR. Normal S1 S2. No murmurs Circulation: Pedal pulses are intact and symmetrical. Abdomen: Normal bowel sounds. Soft. NT. ND. Extremities: No clubbing, cyanosis or edema. Warm : Garcia in place Neurologic: Follows commands. Moves all 4 extremities PERRL AO x3 Skin: No Rash Objective Data Vital Signs Vital Signs: Vital Signs - 24 hr 05/15/24 12:33 05/15/24 14:17 05/15/24 14:15 Temperature Pulse Rate Respiratory Rate Blood Pressure 165/70 H Pulse Oximetry 95 97 Oxygen Delivery High Flow Nasal Cannula High Flow Therapy with Na Oxygen Flow Rate 12 35 Fraction of Inspired Oxygen 30 05/15/24 14:19 05/15/24 14:19 05/15/24 14:27 Temperature Pulse Rate 73 Respiratory Rate 22 H Blood Pressure Pulse Oximetry 95 99 Oxygen Delivery High Flow Nasal Cannula High Flow Nasal Cannula Oxygen Flow Rate 12 12 Fraction of Inspired Oxygen 05/15/24 14:00 05/15/24 14:31 05/15/24 15:51 Temperature 98.5 F Pulse Rate 78 71 73 Respiratory Rate 20 21 H Blood Pressure 160/67 H Pulse Oximetry 99 Oxygen Delivery Oxygen Flow Rate Fraction of Inspired Oxygen 05/15/24 16:18 05/15/24 16:00 05/15/24 16:00 Temperature 98.4 F Pulse Rate 78 74 Respiratory Rate 23 H Blood Pressure 147/70 H Pulse Oximetry 99 100 Oxygen Delivery High Flow Nasal Cannula Oxygen Flow Rate 10 Fraction of Inspired Oxygen 05/15/24 18:00 05/15/24 19:17 05/15/24 20:30 Temperature 98.1 F Pulse Rate 82 80 77 Respiratory Rate 22 H Blood Pressure 154/81 H Pulse Oximetry 97 Oxygen Delivery Oxygen Flow Rate Fraction of Inspired Oxygen 05/15/24 21:09 05/15/24 21:14 05/15/24 21:19 Temperature Pulse Rate 74 74 79 Respiratory Rate 23 H 23 H 21 H Blood Pressure Pulse Oximetry 94 Oxygen Delivery BiPAP Oxygen Flow Rate Fraction of Inspired Oxygen 05/15/24 21:10 05/15/24 23:27 05/16/24 00:12 Temperature 96.8 F L 97.5 F L Pulse Rate 70 Respiratory Rate 16 Blood Pressure 172/61 H Pulse Oximetry 93 99 Oxygen Delivery High Flow Nasal Cannula Oxygen Flow Rate 6 Fraction of Inspired Oxygen 05/16/24 02:37 05/16/24 02:35 05/16/24 02:46 Temperature Pulse Rate 70 70 73 Respiratory Rate 24 H 24 H 22 H Blood Pressure Pulse Oximetry 97 Oxygen Delivery BiPAP Oxygen Flow Rate Fraction of Inspired Oxygen 05/16/24 04:00 05/15/24 20:00 05/16/24 00:00 Temperature 97.4 F L Pulse Rate 71 80 70 Respiratory Rate 23 H 22 H 16 Blood Pressure 160/67 H Pulse Oximetry 99 97 99 Oxygen Delivery High Flow Nasal Cannula BiPAP Oxygen Flow Rate 6 Fraction of Inspired Oxygen 40 05/16/24 04:00 05/16/24 05:15 05/15/24 20:00 Temperature Pulse Rate 71 74 80 Respiratory Rate 23 H 20 Blood Pressure Pulse Oximetry 99 96 Oxygen Delivery BiPAP High Flow Nasal Cannula Oxygen Flow Rate 6 Fraction of Inspired Oxygen 40 05/15/24 22:00 05/16/24 00:00 05/16/24 02:00 Temperature Pulse Rate 74 68 70 Respiratory Rate Blood Pressure Pulse Oximetry Oxygen Delivery Oxygen Flow Rate Fraction of Inspired Oxygen 05/16/24 04:00 05/16/24 06:00 05/16/24 07:30 Temperature Pulse Rate 72 75 Respiratory Rate Blood Pressure Pulse Oximetry 99 Oxygen Delivery High Flow Nasal Cannula Oxygen Flow Rate 6 Fraction of Inspired Oxygen 05/16/24 07:31 05/16/24 07:37 05/16/24 07:48 Temperature 97.5 F L Pulse Rate 75 89 82 Respiratory Rate 24 H 24 H 24 H Blood Pressure 169/61 H Pulse Oximetry 97 Oxygen Delivery Oxygen Flow Rate Fraction of Inspired Oxygen 05/16/24 08:13 05/16/24 09:05 05/16/24 11:27 Temperature Pulse Rate 84 Respiratory Rate Blood Pressure Pulse Oximetry 96 Oxygen Delivery High Flow Nasal Cannula Nasal Cannula Oxygen Flow Rate 4 4 Fraction of Inspired Oxygen 05/16/24 11:46 05/16/24 08:00 05/16/24 10:00 Temperature 97.4 F L Pulse Rate 71 91 71 Respiratory Rate 22 H Blood Pressure 109/63 Pulse Oximetry 96 Oxygen Delivery Oxygen Flow Rate Fraction of Inspired Oxygen Intake/Output Intake/Output: Intake & Output 05/13/24 05/14/24 05/15/24 05/16/24 23:59 23:59 23:59 23:59 Intake Total 2770 1310 1240 370 Output Total 586 087 5692 1120 Balance 2477 492 -526 -029 Meds/Results Medications: Active Medications Generic Name Dose Route Start Last Admin Trade Name Semajq PRN Reason Stop Dose Admin Acetaminophen 650 mg 05/11/24 18:35 05/12/24 08:08 Acetaminophen 325 Mg Tablet PO 650 mg Q4H PRN Administration Mild Pain (1-3) or Fever Albuterol/Ipratropium 3 ml 05/12/24 02:00 05/16/24 07:28 Ipratropium 0.5 Mg/Albuterol Sulfate 2.5 Mg Ampul.Neb 3 Ml INHALATION 3 ml Q6HRT SANGEETA Administration Amlodipine Besylate 10 mg 05/16/24 09:00 05/16/24 09:04 Amlodipine Besylate 10 Mg Tablet PO 10 mg DAILY SANGEETA Administration Aspirin 81 mg 05/12/24 09:00 05/16/24 09:04 Aspirin 81 Mg Enteric Tablet PO 81 mg DAILY SANGEETA Administration Carvedilol 12.5 mg 05/16/24 09:00 05/16/24 09:05 Carvedilol 12.5 Mg Tablet PO 12.5 mg Q12HR SANGEETA Administration Clopidogrel Bisulfate 75 mg 05/12/24 09:00 05/16/24 09:04 Clopidogrel Bisulfate 75 Mg Tablet PO 75 mg DAILY SANGEETA Administration Dextrose 12.5 gm 05/11/24 22:22 Dextrose 50% 25 Gm/50 Ml Syringe IV PUSH PRN PRN Hypoglycemia Protocol Famotidine 20 mg 05/14/24 09:00 05/16/24 09:00 Famotidine 20 Mg/2 Ml Vial IV PUSH 20 mg DAILY SANGEETA Administration Fluticasone/Umeclidinium/Vilanterol 1 puff 05/12/24 08:00 05/16/24 07:28 Fluticasone/Umeclidin/Vilanter 100-62.5-25 Mcg Ellipta INHALATION 1 puff DAILYRT SANGEETA Administration Glucagon 1 mg 05/11/24 22:22 Glucagon For Inj 1 Mg Vial IM PRN PRN Hypoglycemia Protocol Glucose 15 gm 05/11/24 22:22 Glucose Oral Gel 15 Gm Of Glucse In 37.5 Gm Tube PO PRN PRN Hypoglycemia Protocol Guaifenesin 1,200 mg 05/12/24 09:00 05/16/24 09:03 Guaifenesin 12 Hr 600 Mg Tabcr PO 1,200 mg Q12HR SANGEETA Administration Heparin Sodium (Porcine) 5,000 units 05/12/24 09:00 05/16/24 09:02 Heparin Sodium 5,000 Units/Ml Vial SUB-Q 5,000 units Q12HR SANGEETA Administration Hydralazine HCl 10 mg 05/15/24 17:22 05/16/24 00:13 Hydralazine Hcl 20 Mg/Ml Vial IV PUSH 10 mg Q6H PRN Administration Blood Pressure - High Hydrocortisone Sodium Succinate 50 mg 05/12/24 08:30 05/16/24 06:25 Hydrocortisone Sodium Succinate 100 Mg/2 Ml Vial IV PUSH 50 mg Q6HR SANGEETA Administration Dextrose 1,000 mls @ 100 mls/hr 05/11/24 22:22 Dextrose 5% 1,000 Ml IVPB PRN PRN Hypoglycemia Protocol Ceftriaxone Sodium 2 gm in 100 mls @ 200 mls/hr 05/14/24 10:15 05/16/24 09:04 Rocephin 2 Gm/Ns 100 Ml IVPB 200 mls/hr QAM SANGEETA Administration Insulin Aspart 4 - 8 units 05/15/24 21:00 05/16/24 11:50 Insulin Aspart (*Bkc) 100 Units/Ml SUB-Q Not Given 0800,1200,1700,2100 [facility] Protocol Levothyroxine Sodium 75 mcg 05/12/24 06:30 05/16/24 06:25 Levothyroxine Sodium 75 Mcg Tablet PO 75 mcg DAILY@0630 SANGEETA Administration Ondansetron HCl 4 mg 05/11/24 18:35 Ondansetron Inj 4 Mg/2 Ml Vial IV PUSH Q4H PRN Nausea Rosuvastatin Calcium 40 mg 05/12/24 09:00 05/16/24 09:03 Rosuvastatin 20 Mg Tablet PO 40 mg DAILY SANGEETA Administration Radiology Results: ITS Impressions Chest/Abdomen/Pelvis CT 05/11/24 18:29 IMPRESSION: Extensive right upper lobe, middle lobe and left lower lobe consolidating pneumonia, with mild mediastinal reactive lymph node enlargement Occasional pulmonary nodules, likely related to pulmonary granulomatous disease 29 x 31 mm left adrenal low-attenuation mass, likely due to adrenal adenoma, less likely metastasis Normal appendix Minimal sigmoid diverticulosis; no evidence of diverticulitis Moderate prostatomegaly 2. Fusiform infrarenal abdominal aortic aneurysms, measuring up to 4 cm Central venous right common femoral catheter in right common femoral vein Renal Ultrasound 05/12/24 15:15 IMPRESSION: Unremarkable renal sonogram findings. Carotid Doppler Study 05/12/24 15:34 IMPRESSION: 1. <50% stenosis in the right internal carotid artery. 2. 50-69% stenosis in the left internal carotid artery. Chest X-Ray 05/15/24 06:30 IMPRESSION: 1. There is been some interval improvement in bilateral airspace opacities greatest in the right mid and left lower lung zones consistent with pneumonia 2. Small left pleural effusion. Labs Labs: Laboratory Results - last 24 hr 05/12/24 05/15/24 05/15/24 01:13 15:54 20:28 WBC RBC Hgb Hct MCV MCH MCHC RDW Plt Count MPV Immature Gran % (Auto) Neut % (Auto) Lymph % (Auto) [place] % (Auto) Eos % (Auto) Baso % (Auto) Lymph # (Auto) [place] # (Auto) Eos # (Auto) Baso # (Auto) Abs Immat Gran (auto) Absolute Neuts (auto) Absolute Nucleated RBC Nucleated RBC % Sodium Potassium Chloride Carbon Dioxide Anion Gap BUN Creatinine Estim Creat Clear Calc Estimated GFR Glucose POC Capillary Glucose 247 H 222 H Calcium Phosphorus Magnesium Total Bilirubin AST ALT Alkaline Phosphatase Total Protein Albumin Urine Pneumococcal Ag Detected A 05/16/24 05/16/24 05/16/24 04:28 07:50 11:42 WBC 16.4 H RBC 2.68 L Hgb 7.7 L Hct 22.5 L MCV 84.0 MCH 28.7 MCHC 34.2 RDW 14.1 Plt Count 211 MPV 9.7 Immature Gran % (Auto) 4.5 H Neut % (Auto) 82.2 H Lymph % (Auto) 6.1 L [place] % (Auto) 7.1 Eos % (Auto) 0.0 Baso % (Auto) 0.1 L Lymph # (Auto) 1.00 [place] # (Auto) 1.2 H Eos # (Auto) 0.0 Baso # (Auto) 0.0 Abs Immat Gran (auto) 0.74 H Absolute Neuts (auto) 13.4 H Absolute Nucleated RBC 0.000 Nucleated RBC % 0.0 Sodium 136 L Potassium 3.2 L Chloride 106 Carbon Dioxide 15 L Anion Gap 15 H BUN 143 H D Creatinine 7.00 H Estim Creat Clear Calc 8 Estimated GFR 8 L Glucose 212 H POC Capillary Glucose 268 H 175 H Calcium 7.2 L Phosphorus 5.0 H Magnesium 2.5 H Total Bilirubin 0.8 AST 40 ALT 42 Alkaline Phosphatase 91 Total Protein 6.0 L Albumin 3.1 L Urine Pneumococcal Ag
[2024-05-16 16:44] LABS: Glucose Point of Care 176 mg/dl (65-105)
[2024-05-16 17:31] LABS: Hematocrit 22.5 % (42.0-52.0); Hemoglobin 7.6 g/dL (14.0-18.0)
[2024-05-16] MEDS: EPOETIN ALFA-EPBX 20,000 UNITS/ML VIAL 20000 UNITS SUB-Q (17:35)
[2024-05-16 20:07] LABS: Glucose Point of Care 235 mg/dl (65-105)
[2024-05-16] MEDS: PANTOPRAZOLE SODIUM IV 40 MG VIAL IV PUSH (20:36)
[2024-05-17] VITALS (28 sets, daily range): BP systolic 106–152; BP diastolic 42–60; PULSE 51–76; RESP 17–24; TEMP 36.3–36.6; O2SAT 90–100
[2024-05-17] MEDS: HYDROCORTISONE SODIUM SUCCINATE 100 MG/2 ML VIAL 50 MG IV PUSH ×2 (00:55→05:20)
[2024-05-17] MEDS: ONDANSETRON INJ 4 MG/2 ML VIAL IV PUSH (00:55)
--- NOTE | 2024-05-17 01:16 | PCRCNOTE ---
Patient refused 0200 nebulizer treatment. RN aware.
[2024-05-17] MEDS: LEVOTHYROXINE SODIUM 75 MCG TABLET PO (05:23)
--- NOTE | 2024-05-17 07:25 | PM.PNCARD ---
Progress Note: A&P Assessment and Plan (1) Syncope: Code(s): R55 - Syncope and collapse Status: Acute Assessment and Plan: Probably due to septic shock. (2) Multifocal pneumonia: Code(s): J18.9 - Pneumonia, unspecified organism Status: Acute Assessment and Plan: On antibiotics as per hospitalist. (3) Acute kidney injury: Code(s): N17.9 - Acute kidney failure, unspecified Status: Acute Assessment and Plan: Worsening. Probably due to septic shock. Nephrology following. (4) Tobacco dependence: Code(s): F17.200 - Nicotine dependence, unspecified, uncomplicated Status: Acute Assessment and Plan: Counseled regarding smoking cessation. (5) Hypertension: Code(s): I10 - Essential (primary) hypertension Status: Acute Assessment and Plan: Stable. Monitor. (6) Elevated troponin: Code(s): R79.89 - Other specified abnormal findings of blood chemistry Status: Acute Assessment and Plan: Troponin peaked at .102 and trending down. Due to septic shock, pneumonia, acute renal failure. Doubt ACS without chest pains, no EKG ST changes. (7) Systolic dysfunction: Code(s): I51.9 - Heart disease, unspecified Status: Acute Assessment and Plan: Appears euvolemic. 05/12/24 Echo: TDS. Mild LVE, EF 35-40%, mild LVH, grade I diastolic dysfunction, mild LAE, trace MR. Started HF medication which is his home medication Coreg. Not on John/ARB/Entresto or Jardiance as kidney function worsening. No further cardiac workup is needed. Will sign off. Please call with any questions. 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 (8) Transaminitis: Code(s): R74.01 - Elevation of levels of liver transaminase levels Status: Acute Assessment and Plan: Resume Rosuvastatin as LFT normal now. Subjective Date/time seen: 05/17/24 07:25 Interval history: Patient is sleeping with CPAP, arousable but sleepy. Exam Const: General: cooperative, healthy appearing and comfortable Orientation/consciousness: oriented to person, oriented to place and oriented to time Resp: Auscultation: no crackles, no rales, no rhonchi, no wheezes and diminished lung sounds Cardio: Rate: regular rate and tachycardic Rhythm: regular rhythm Heart sounds: no murmurs Peripheral pulses: dorsalis pedis present Neuro: General: oriented to person, oriented to place and oriented to time Extrem: Right lower extremity: no edema Left lower extremity: no edema Objective Data Vital Signs Vital Signs: Vital Signs - 24 hr 05/16/24 07:30 05/16/24 07:31 05/16/24 07:37 Temperature Pulse Rate 75 89 Respiratory Rate 24 H 24 H Blood Pressure Pulse Oximetry 99 Oxygen Delivery High Flow Nasal Cannula Oxygen Flow Rate 6 Fraction of Inspired Oxygen 05/16/24 07:48 05/16/24 08:13 05/16/24 09:05 Temperature 97.5 F L Pulse Rate 82 84 Respiratory Rate 24 H Blood Pressure 169/61 H Pulse Oximetry 97 96 Oxygen Delivery High Flow Nasal Cannula Oxygen Flow Rate 4 Fraction of Inspired Oxygen 05/16/24 11:27 05/16/24 11:46 05/16/24 08:00 Temperature 97.4 F L Pulse Rate 71 91 Respiratory Rate 22 H Blood Pressure 109/63 Pulse Oximetry 96 Oxygen Delivery Nasal Cannula Oxygen Flow Rate 4 Fraction of Inspired Oxygen 05/16/24 10:00 05/16/24 13:50 05/16/24 13:57 Temperature Pulse Rate 71 71 75 Respiratory Rate 20 22 H Blood Pressure Pulse Oximetry Oxygen Delivery Oxygen Flow Rate Fraction of Inspired Oxygen 05/16/24 12:00 05/16/24 14:00 05/16/24 08:00 Temperature Pulse Rate 68 53 L Respiratory Rate Blood Pressure Pulse Oximetry 97 Oxygen Delivery Nasal Cannula Oxygen Flow Rate 4 Fraction of Inspired Oxygen 05/16/24 12:00 05/16/24 15:39 05/16/24 16:00 Temperature 97.4 F L Pulse Rate 76 76 Respiratory Rate 22 H Blood Pressure 121/59 L Pulse Oximetry 96 91 Oxygen Delivery Nasal Cannula Oxygen Flow Rate 4 Fraction of Inspired Oxygen 05/16/24 18:00 05/16/24 16:00 05/16/24 20:00 Temperature 97.5 F L Pulse Rate 70 77 Respiratory Rate 20 Blood Pressure 146/63 H Pulse Oximetry 91 90 Oxygen Delivery Nasal Cannula Oxygen Flow Rate 4 Fraction of Inspired Oxygen 05/16/24 20:35 05/16/24 20:53 05/16/24 20:54 Temperature Pulse Rate 74 71 Respiratory Rate 20 Blood Pressure Pulse Oximetry 95 Oxygen Delivery High Flow Nasal Cannula Oxygen Flow Rate 4 Fraction of Inspired Oxygen 05/16/24 20:54 05/16/24 20:00 05/16/24 23:37 Temperature Pulse Rate 70 77 57 L Respiratory Rate 20 20 15 Blood Pressure Pulse Oximetry 98 90 98 Oxygen Delivery BiPAP Nasal Cannula BiPAP Oxygen Flow Rate 4 Fraction of Inspired Oxygen 05/16/24 23:38 05/17/24 00:00 05/16/24 20:00 Temperature 97.9 F Pulse Rate 57 L 66 71 Respiratory Rate 12 20 Blood Pressure 152/47 H Pulse Oximetry 98 96 Oxygen Delivery BiPAP Oxygen Flow Rate Fraction of Inspired Oxygen 40 05/16/24 22:00 05/17/24 00:00 05/17/24 01:17 Temperature Pulse Rate 52 L 58 L 70 Respiratory Rate Blood Pressure Pulse Oximetry 92 Oxygen Delivery Nasal Cannula Oxygen Flow Rate 4 Fraction of Inspired Oxygen 05/17/24 01:54 05/16/24 23:40 05/17/24 04:00 Temperature 97.9 F Pulse Rate 67 66 64 Respiratory Rate 20 20 Blood Pressure 121/42 L Pulse Oximetry 96 95 Oxygen Delivery BiPAP Oxygen Flow Rate Fraction of Inspired Oxygen 40 Intake/Output Intake/Output: Intake & Output 05/14/24 05/15/24 05/16/24 05/17/24 23:59 23:59 23:59 23:59 Intake Total 1310 1240 950 100 Output Total 850 1750 2070 725 Balance 460 -510 -1120 -625 Meds/Results Medications: Active Medications Generic Name Dose Route Start Last Admin Trade Name Freq PRN Reason Stop Dose Admin Acetaminophen 650 mg 05/11/24 18:35 05/12/24 08:08 Acetaminophen 325 Mg Tablet PO 650 mg Q4H PRN Administration Mild Pain (1-3) or Fever Albuterol/Ipratropium 3 ml 05/12/24 02:00 05/17/24 01:16 Ipratropium 0.5 Mg/Albuterol Sulfate 2.5 Mg Ampul.Neb 3 Ml INHALATION Not Given Q6HRT [facility] Amlodipine Besylate 10 mg 05/16/24 09:00 05/16/24 09:04 Amlodipine Besylate 10 Mg Tablet PO 10 mg DAILY SANGEETA Administration Aspirin 81 mg 05/12/24 09:00 05/16/24 09:04 Aspirin 81 Mg Enteric Tablet PO 81 mg DAILY SANGEETA Administration Carvedilol 12.5 mg 05/16/24 09:00 05/16/24 20:35 Carvedilol 12.5 Mg Tablet PO 12.5 mg Q12HR SANGEETA Administration Clopidogrel Bisulfate 75 mg 05/12/24 09:00 05/16/24 09:04 Clopidogrel Bisulfate 75 Mg Tablet PO 75 mg DAILY SANGEETA Administration Dextrose 12.5 gm 05/11/24 22:22 Dextrose 50% 25 Gm/50 Ml Syringe IV PUSH PRN PRN Hypoglycemia Protocol Epoetin Shimon-epbx 10,000 units 05/17/24 09:00 Epoetin Shimon-Epbx 10,000 Units/Ml Vial SUB-Q TUTHSA@09 SANGEETA Famotidine 20 mg 05/14/24 09:00 05/16/24 09:00 Famotidine 20 Mg/2 Ml Vial IV PUSH 20 mg DAILY SANGEETA Administration Fluticasone/Umeclidinium/Vilanterol 1 puff 05/12/24 08:00 05/16/24 07:28 Fluticasone/Umeclidin/Vilanter 100-62.5-25 Mcg Ellipta INHALATION 1 puff DAILYRT SANGEETA Administration Glucagon 1 mg 05/11/24 22:22 Glucagon For Inj 1 Mg Vial IM PRN PRN Hypoglycemia Protocol Glucose 15 gm 05/11/24 22:22 Glucose Oral Gel 15 Gm Of Glucse In 37.5 Gm Tube PO PRN PRN Hypoglycemia Protocol Guaifenesin 1,200 mg 05/12/24 09:00 05/16/24 20:35 Guaifenesin 12 Hr 600 Mg Tabcr PO 1,200 mg Q12HR SANGEETA Administration Heparin Sodium (Porcine) 5,000 units 05/12/24 09:00 05/16/24 09:02 Heparin Sodium 5,000 Units/Ml Vial SUB-Q 5,000 units Q12HR SANGEETA Administration Hydralazine HCl 10 mg 05/15/24 17:22 05/16/24 00:13 Hydralazine Hcl 20 Mg/Ml Vial IV PUSH 10 mg Q6H PRN Administration Blood Pressure - High Hydrocortisone Sodium Succinate 50 mg 05/12/24 08:30 05/17/24 05:20 Hydrocortisone Sodium Succinate 100 Mg/2 Ml Vial IV PUSH 50 mg Q6HR SANGEETA Administration Dextrose 1,000 mls @ 100 mls/hr 05/11/24 22:22 Dextrose 5% 1,000 Ml IVPB PRN PRN Hypoglycemia Protocol Ceftriaxone Sodium 2 gm in 100 mls @ 200 mls/hr 05/14/24 10:15 05/16/24 19:00 Rocephin 2 Gm/Ns 100 Ml IVPB Infused QAM SANGEETA Infusion Insulin Aspart 4 - 8 units 05/15/24 21:00 05/16/24 20:48 Insulin Aspart (*Bkc) 100 Units/Ml SUB-Q 4 units 0800,1200,1700,2100 SANGEETA Administration Protocol Levothyroxine Sodium 75 mcg 05/12/24 06:30 05/17/24 05:23 Levothyroxine Sodium 75 Mcg Tablet PO 75 mcg DAILY@0630 SANGEETA Administration Ondansetron HCl 4 mg 05/11/24 18:35 05/17/24 00:55 Ondansetron Inj 4 Mg/2 Ml Vial IV PUSH 4 mg Q4H PRN Administration Nausea Pantoprazole Sodium 40 mg 05/16/24 21:00 05/16/24 20:36 Pantoprazole Sodium Iv 40 Mg Vial IV PUSH 40 mg Q12HR SANGEETA Administration Rosuvastatin Calcium 40 mg 05/12/24 09:00 05/16/24 09:03 Rosuvastatin 20 Mg Tablet PO 40 mg DAILY SANGEETA Administration Radiology Results: ITS Impressions Chest/Abdomen/Pelvis CT 05/11/24 18:29 IMPRESSION: Extensive right upper lobe, middle lobe and left lower lobe consolidating pneumonia, with mild mediastinal reactive lymph node enlargement Occasional pulmonary nodules, likely related to pulmonary granulomatous disease 29 x 31 mm left adrenal low-attenuation mass, likely due to adrenal adenoma, less likely metastasis Normal appendix Minimal sigmoid diverticulosis; no evidence of diverticulitis Moderate prostatomegaly 2. Fusiform infrarenal abdominal aortic aneurysms, measuring up to 4 cm Central venous right common femoral catheter in right common femoral vein Renal Ultrasound 05/12/24 15:15 IMPRESSION: Unremarkable renal sonogram findings. Carotid Doppler Study 05/12/24 15:34 IMPRESSION: 1. <50% stenosis in the right internal carotid artery. 2. 50-69% stenosis in the left internal carotid artery. Chest X-Ray 05/15/24 06:30 IMPRESSION: 1. There is been some interval improvement in bilateral airspace opacities greatest in the right mid and left lower lung zones consistent with pneumonia 2. Small left pleural effusion. Labs Labs: Laboratory Results - last 24 hr 05/16/24 05/16/24 05/16/24 07:50 11:42 16:32 Hgb Hct POC Capillary Glucose 268 H 175 H 176 H 05/16/24 05/16/24 17:13 19:47 Hgb 7.6 L Hct 22.5 L POC Capillary Glucose 235 H
[2024-05-17] MEDS: IPRATROPIUM 0.5 MG/ALBUTEROL SULFATE 2.5 MG AMPUL.NEB 3 ML INHALATION ×2 (07:36→21:25)
[2024-05-17 07:45] LABS: Basophils Percent Auto 0.1 % (0.2-1.2); Immature Granulocyte Absolute 0.86 K/mm3 (0.00-0.031); Immature Granulocyte Percent A 5.8 % (0-0.5); Lymphocytes Absolute Auto 1.12 K/mm3 (0.9-3.2); Lymphocytes Percent Auto 7.5 % (18.3-44.2); Mean Corpuscular HGB Conc 33.9 g/dl (32-36); Mean Corpuscular Hemoglobin 28.6 pg (26-34); Mean Corpuscular Volume 84.6 fl (80-100); Mean Platelet Volume 9.9 fl (7.4-10.4); Monocytes Absolute Auto 0.9 K/mm3 (0.1-0.6); Monocytes Percent Auto 6.1 % (2.6-8.5); Neutrophils Percent Auto 80.5 % (45.5-73.1); Platelet Count Result 203 k/mm3 (150-375); Red Blood Count 2.27 M/mm3 (4.6-6.20); Red Cell Distribution Width 14.4 % (11.5-14.5); White Blood Count 14.9 K/mm3 (4.5-10.0)
[2024-05-17 07:46] LABS: Glucose Point of Care 187 mg/dl (65-105)
[2024-05-17 08:20] LABS: Hematocrit 19.2 % (42.0-52.0); Hemoglobin 6.5 g/dL (14.0-18.0)
[2024-05-17 08:55] LABS: Platelet Estimate Adequate (Adequate)
[2024-05-17 08:56] LABS: Anisocytosis 1+; Hypochromasia 1+; Schistocytes None Seen
--- NOTE | 2024-05-17 09:49 | PC.NURSE ---
05/17/24 at 0030-This RN from another patient's room noticed that this patient was off of the media monitor and the C/T SPO2 sensor. 0033-Jose Manuel Welsh CCT called on the vocera and this RN asked her to reattach the media monitor and continuous SPO2. CCT states that she is currently attempting to reapply the monitor, but the patient is refusing and will not get back into the bed. CCT states that the bed alarm had gone off and the patient had pulled off his BIPAP mask, bilateral SCD's wraps, socks, and had gotten out of the bed. CCT also states that she has been trying to get the patient to lay back in the bed, but he is refusing and will only sit at the side of the bed. HANH Castaneda states that the patient had previously been incontinent of stool that appeared like a small to moderate, black, liquid that had soaked into the bed pad. Stool specimen was unable to be collected. Per HANH Castaneda the patient had also C/O of some slight nausea. 0040-This RN entered the patient's room to assess the patient. Zofran IVP given as ordered to the patient. Pt is currently A&Ox4, sitting at the side of the bed. SPO2 decreased to low 80's on RA. Pt agreeable to let this RN reapply his media monitor, SPO2 sensor, and his NC with 4L O2 as he was previously on. SPO2 increased to 90-92% after the O2 was reapplied. Pt continues to refuse to lay back in the bed stating, We are taking away his rights and his freedom. We are treating him like some caged animal in a senior living. Pt also is states, We are going to punish him and being mean to him because he shit his pants. Pt informed and educated that we are not trying to take away his rights or be mean to him, but we are only trying to keep him safe and try to avoid him falling. Pt reminded that he has GLEZ and hypoxia W/O O2 on, and that he came into the hospital after multiple syncopal episodes. Pt states, We are all working for the [employer] the [employer]. We could care less about his safety and that we are only in this for the [employer]. We will all be punished for this some day. This RN offered to attempt to call his or other family for him to speak to them. 0115-Pt assisted to call his spouse and daughter via his cell phone with no answer from either family member. Pt continues on with suspicious behavior towards staff members. Stating, We don't need to babysit him and watch him like a criminal. He only wanted to get up, get his clothes on, and go to the kitchen to make some of the good coffee. It's not like I was going to jump out the window to escape. 0240-Pt states that he is getting a little tired and that he is cold. Pt assisted to lay back down in the bed. Pt provided his covers and a warmed blanket. BIPAP mask reapplied. Non slip socks reapplied to the patient. Pt instructed to remain in the bed and attempt to get some rest. Bed alarm reactivated and the room lights turned off.
[2024-05-17 09:58] LABS: Alanine Aminotransferase 29 U/L (6-50); Albumin Level 2.9 g/dL (3.5-5.1); Alkaline Phosphatase 74 U/L (38-126); Anion Gap 16 mmol/L (4-12); Aspartate Amino Transferase 21 U/L (17-59); Bilirubin,Total 0.6 mg/dL (0.2-1.3); Calcium 7.3 mg/dL (8.4-10.2); Carbon Dioxide 14 mmol/L (22-30); Chloride 106 mmol/L (98-107); Estimated CRCL calculation 9 ml/min; Estimated Glomerular Filt Rate 8; Glucose 169 mg/dL (65-110); Magnesium 2.4 mg/dL (1.6-2.3); Phosphorus 7.2 mg/dL (2.5-4.5); Potassium 3.3 mmol/L (3.4-5.0); Sodium 136 mmol/L (137-145)
[2024-05-17 10:01] LABS: IFOB Positive Control Positive; Immunochemical Fecal Occult Bl Positive (N)
[2024-05-17 10:05] LABS: Blood Urea Nitrogen 165 mg/dL (9-20)
[2024-05-17] MEDS: ROSUVASTATIN 20 MG TABLET 40 MG PO (10:07)
[2024-05-17] MEDS: guaiFENesin 12 HR 600 MG TABCR 1200 MG PO ×2 (10:07→20:27)
[2024-05-17] MEDS: PANTOPRAZOLE SODIUM IV 40 MG VIAL IV PUSH ×2 (10:07→20:28)
[2024-05-17] MEDS: amLODIPine BESYLATE 10 MG TABLET PO (10:09)
[2024-05-17] MEDS: carvediloL 12.5 MG TABLET PO ×2 (10:10→20:27)
[2024-05-17] MEDS: EPOETIN ALFA-EPBX 10,000 UNITS/ML VIAL 10000 UNITS SUB-Q (10:23)
[2024-05-17] MEDS: cefTRIAXone 2 GM/NS 100 ML 2 GM/100 ML BAG IVPB (10:24)
[2024-05-17] MEDS: SODIUM CHLORIDE 0.9% IV 250 ML 30 ML IV CONT (11:14)
[2024-05-17 11:36] LABS: Glucose Point of Care 186 mg/dl (65-105)
--- NOTE | 2024-05-17 11:38 | P.PNIM_ITS ---
Progress Note: A&P Assessment and Plan (1) Acute respiratory failure: Code(s): J96.00 - Acute respiratory failure, unspecified whether with hypoxia or hypercapnia Status: Acute Assessment and Plan: Patient has baseline COPD and now presented with pneumonia and hypoxic respiratory failure. Initially needed Airvo/non-rebreather mask because of hypoxia. Trial of BiPAP started in ICU. Chest x-ray and ABG reviewed Currently on oxygen via nasal cannula Continue bronchodilators antibiotics and steroid will taper Solu Cortef (2) Septic shock: Code(s): A41.9 - Sepsis, unspecified organism; R65.21 - Severe sepsis with septic shock Status: Acute Assessment and Plan: Septic shock secondary to pneumonia and UTI Patient has received IV fluid bolus and is now on maintenance IV fluids. Cautious IV fluids to minimize risk of volume overload Off pressors Continue Hydrocortisone for pneumonia 05/11: Blood cultures growing Streptococcus pneumonia 2/2 bottles, pansensitive 05/12: Urine culture NO growth -05/14: Discontinued vancomycin and cefepime -05/14: Started patient ceftriaxone, continue oral doxycycline - urine Legionella and pneumococcal antigen pending Lactic acid has normalized Finished course of doxycycline 05/12/2024: Echocardiogram Summary 1. Technically suboptimal study due to poor sonographic images. 2. Definity contrast administered improved wall motion interpretation. 3. Left ventricular chamber dimension is mildly enlarged. 4. Left ventricular systolic function is moderately globally reduced, estimated at 35-40%. 5. There is mild concentric increased left ventricular wall thickness. 6. The left ventricular diastolic function is grade I diastolic dysfunction. 7. Left atrial chamber dimension is mildly enlarged. 8. There is mild aortic valve sclerosis. 9. There is trace mitral valve regurgitation. (3) Multifocal pneumonia: Code(s): J18.9 - Pneumonia, unspecified organism Status: Acute Assessment and Plan: See above (4) Acute kidney injury: Code(s): N17.9 - Acute kidney failure, unspecified Status: Acute Assessment and Plan: He presented with creatinine of 4.4. Baseline unknown as last recorded creatinine is from 2019 Creatinine continues to increase however with improved urine output now creatinine trended down. Nephrology following (5) Type 2 diabetes mellitus: Code(s): E11.9 - Type 2 diabetes mellitus without complications Status: Acute Assessment and Plan: Sliding scale insulin Continue diabetic diet and heart healthy diet (6) Hypothyroidism: Code(s): E03.9 - Hypothyroidism, unspecified Status: Acute Assessment and Plan: Elevated TSH -continue levothyroxine (7) Elevated troponin: Code(s): R79.89 - Other specified abnormal findings of blood chemistry Status: Acute Assessment and Plan: Mildly elevated troponin in the setting of septic shock and acute kidney failure likely to monitor radiated ischemia. Patient denies any chest pain. -troponins trending down -Continue aspirin Plavix and rosuvastatin -echocardiogram as above (8) Chronic obstructive pulmonary disease: Qualifiers: COPD type: emphysema Emphysema type: unspecified Qualified Code(s): J43.9 - Emphysema, unspecified Code(s): J44.9 - Chronic obstructive pulmonary disease, unspecified Status: Chronic Assessment and Plan: Continue NIPPV, steroids, bronchodilators will slowly taper off noninvasive positive pressure ventilation (9) Electrolyte abnormality: Code(s): E87.8 - Other disorders of electrolyte and fluid balance, not elsewhere classified Status: Acute Assessment and Plan: Magnesium is normalized after replacement Replace potassium as needed (10) Anemia: Qualifiers: Anemia type: unspecified type Qualified Code(s): D64.9 - Anemia, unspecified Code(s): D64.9 - Anemia, unspecified Status: Acute Assessment and Plan: FOBT positive stool H&H dropping PPI started GI consult Hold aspirin Plavix and heparin subQ Plan DVT prophylaxis -subcutaneous heparin which will be held due to anemia Stress ulcer prophylaxis -Protonix Nutrition -heart healthy diet Code Status: Full code Subjective Date/time seen: 05/17/24 11:38 Interval history: Patient continues to have dark stool. Labs reviewed. Oxygenation stable. Denies any abdominal pain. Review of Systems Review of Systems: All systems reviewed & are unremarkable except as noted in HPI and below Exam Narrative: General: Pt is alert awake and in no significant distress Lungs/Chest: Air entry is decreased, few rales at bases. Cardiac: RRR. Normal S1 S2. No murmurs Circulation: Pedal pulses are intact and symmetrical. Abdomen: Normal bowel sounds. Soft. NT. ND. Extremities: No clubbing, cyanosis or edema. Warm : Garcia in place Neurologic: Follows commands. Moves all 4 extremities PERRL AO x3 Skin: No Rash Objective Data Vital Signs Vital Signs: Vital Signs - 24 hr 05/16/24 11:46 05/16/24 13:50 05/16/24 13:57 Temperature 97.4 F L Pulse Rate 71 71 75 Respiratory Rate 22 H 20 22 H Blood Pressure 109/63 Pulse Oximetry 96 Oxygen Delivery Oxygen Flow Rate Fraction of Inspired Oxygen 05/16/24 12:00 05/16/24 14:00 05/16/24 12:00 Temperature Pulse Rate 68 53 L Respiratory Rate Blood Pressure Pulse Oximetry 96 Oxygen Delivery Nasal Cannula Oxygen Flow Rate 4 Fraction of Inspired Oxygen 05/16/24 15:39 05/16/24 16:00 05/16/24 18:00 Temperature 97.4 F L Pulse Rate 76 76 70 Respiratory Rate 22 H Blood Pressure 121/59 L Pulse Oximetry 91 Oxygen Delivery Oxygen Flow Rate Fraction of Inspired Oxygen 05/16/24 16:00 05/16/24 20:00 05/16/24 20:35 Temperature 97.5 F L Pulse Rate 77 74 Respiratory Rate 20 Blood Pressure 146/63 H Pulse Oximetry 91 90 Oxygen Delivery Nasal Cannula Oxygen Flow Rate 4 Fraction of Inspired Oxygen 05/16/24 20:53 05/16/24 20:54 05/16/24 20:54 Temperature Pulse Rate 71 70 Respiratory Rate 20 20 Blood Pressure Pulse Oximetry 95 98 Oxygen Delivery High Flow Nasal Cannula BiPAP Oxygen Flow Rate 4 Fraction of Inspired Oxygen 05/16/24 20:00 05/16/24 23:37 05/16/24 23:38 Temperature Pulse Rate 77 57 L 57 L Respiratory Rate 20 15 12 Blood Pressure Pulse Oximetry 90 98 98 Oxygen Delivery Nasal Cannula BiPAP BiPAP Oxygen Flow Rate 4 Fraction of Inspired Oxygen 40 05/17/24 00:00 05/16/24 20:00 05/16/24 22:00 Temperature 97.9 F Pulse Rate 66 71 52 L Respiratory Rate 20 Blood Pressure 152/47 H Pulse Oximetry 96 Oxygen Delivery Oxygen Flow Rate Fraction of Inspired Oxygen 05/17/24 00:00 05/17/24 01:17 05/17/24 01:54 Temperature Pulse Rate 58 L 70 67 Respiratory Rate Blood Pressure Pulse Oximetry 92 Oxygen Delivery Nasal Cannula Oxygen Flow Rate 4 Fraction of Inspired Oxygen 05/16/24 23:40 05/17/24 04:00 05/17/24 07:41 Temperature 97.9 F Pulse Rate 66 64 68 Respiratory Rate 20 20 17 Blood Pressure 121/42 L Pulse Oximetry 96 95 98 Oxygen Delivery BiPAP BiPAP Oxygen Flow Rate Fraction of Inspired Oxygen 40 05/17/24 07:29 05/17/24 04:00 05/17/24 04:00 Temperature 97.5 F L Pulse Rate 67 64 52 L Respiratory Rate 21 H 20 Blood Pressure 149/60 H Pulse Oximetry 98 95 Oxygen Delivery BiPAP Oxygen Flow Rate Fraction of Inspired Oxygen 40 05/17/24 06:00 05/17/24 07:50 05/17/24 08:05 Temperature Pulse Rate 51 L 74 76 Respiratory Rate 20 20 Blood Pressure Pulse Oximetry Oxygen Delivery Oxygen Flow Rate Fraction of Inspired Oxygen 05/17/24 10:10 05/17/24 11:01 05/17/24 11:17 Temperature 98 F 97.6 F Pulse Rate 68 70 68 Respiratory Rate 18 18 Blood Pressure 132/59 L 129/54 L Pulse Oximetry 94 94 Oxygen Delivery Oxygen Flow Rate Fraction of Inspired Oxygen Intake/Output Intake/Output: Intake & Output 05/14/24 05/15/24 05/16/24 05/17/24 23:59 23:59 23:59 23:59 Intake Total 1310 1240 950 100 Output Total 850 1750 2070 725 Balance 460 -510 -1120 -625 Meds/Results Medications: Active Medications Generic Name Dose Route Start Last Admin Trade Name Freq PRN Reason Stop Dose Admin Acetaminophen 650 mg 05/11/24 18:35 05/12/24 08:08 Acetaminophen 325 Mg Tablet PO 650 mg Q4H PRN Administration Mild Pain (1-3) or Fever Albuterol/Ipratropium 3 ml 05/12/24 02:00 05/17/24 07:36 Ipratropium 0.5 Mg/Albuterol Sulfate 2.5 Mg Ampul.Neb 3 Ml INHALATION 3 ml Q6HRT SANGEETA Administration Amlodipine Besylate 10 mg 05/16/24 09:00 05/17/24 10:09 Amlodipine Besylate 10 Mg Tablet PO 10 mg DAILY SANGEETA Administration Aspirin 81 mg 05/12/24 09:00 05/16/24 09:04 Aspirin 81 Mg Enteric Tablet PO 81 mg DAILY SANGEETA Administration Carvedilol 12.5 mg 05/16/24 09:00 05/17/24 10:10 Carvedilol 12.5 Mg Tablet PO 12.5 mg Q12HR SANGEETA Administration Clopidogrel Bisulfate 75 mg 05/12/24 09:00 05/16/24 09:04 Clopidogrel Bisulfate 75 Mg Tablet PO 75 mg DAILY SANGEETA Administration Dextrose 12.5 gm 05/11/24 22:22 Dextrose 50% 25 Gm/50 Ml Syringe IV PUSH PRN PRN Hypoglycemia Protocol Epoetin Shimon-epbx 10,000 units 05/17/24 09:00 05/17/24 10:23 Epoetin Shimon-Epbx 10,000 Units/Ml Vial SUB-Q 10,000 units TUTHSA@09 SANGEETA Administration Famotidine 20 mg 05/14/24 09:00 05/16/24 09:00 Famotidine 20 Mg/2 Ml Vial IV PUSH 20 mg DAILY SANGEETA Administration Fluticasone/Umeclidinium/Vilanterol 1 puff 05/12/24 08:00 05/16/24 07:28 Fluticasone/Umeclidin/Vilanter 100-62.5-25 Mcg Ellipta INHALATION 1 puff DAILYRT SANGEETA Administration Glucagon 1 mg 05/11/24 22:22 Glucagon For Inj 1 Mg Vial IM PRN PRN Hypoglycemia Protocol Glucose 15 gm 05/11/24 22:22 Glucose Oral Gel 15 Gm Of Glucse In 37.5 Gm Tube PO PRN PRN Hypoglycemia Protocol Guaifenesin 1,200 mg 05/12/24 09:00 05/17/24 10:07 Guaifenesin 12 Hr 600 Mg Tabcr PO 1,200 mg Q12HR SANGEETA Administration Heparin Sodium (Porcine) 5,000 units 05/12/24 09:00 05/16/24 09:02 Heparin Sodium 5,000 Units/Ml Vial SUB-Q 5,000 units Q12HR SANGEETA Administration Hydralazine HCl 10 mg 05/15/24 17:22 05/16/24 00:13 Hydralazine Hcl 20 Mg/Ml Vial IV PUSH 10 mg Q6H PRN Administration Blood Pressure - High Hydrocortisone Sodium Succinate 50 mg 05/12/24 08:30 05/17/24 05:20 Hydrocortisone Sodium Succinate 100 Mg/2 Ml Vial IV PUSH 50 mg Q6HR SANGEETA Administration Dextrose 1,000 mls @ 100 mls/hr 05/11/24 22:22 Dextrose 5% 1,000 Ml IVPB PRN PRN Hypoglycemia Protocol Ceftriaxone Sodium 2 gm in 100 mls @ 200 mls/hr 05/14/24 10:15 05/17/24 10:24 Rocephin 2 Gm/Ns 100 Ml IVPB 200 mls/hr QAM SANGEETA Administration Sodium Chloride 250 mls @ 30 mls/hr 05/17/24 08:39 05/17/24 11:14 Normal Saline Iv IV CONT 05/17/24 16:58 30 mls/hr .Q8H20M STA Administration Insulin Aspart 4 - 8 units 05/15/24 21:00 05/17/24 08:18 Insulin Aspart (*Bkc) 100 Units/Ml SUB-Q Not Given 0800,1200,1700,2100 [facility] Protocol Levothyroxine Sodium 75 mcg 05/12/24 06:30 05/17/24 05:23 Levothyroxine Sodium 75 Mcg Tablet PO 75 mcg DAILY@0630 SANGEETA Administration Ondansetron HCl 4 mg 05/11/24 18:35 05/17/24 00:55 Ondansetron Inj 4 Mg/2 Ml Vial IV PUSH 4 mg Q4H PRN Administration Nausea Pantoprazole Sodium 40 mg 05/16/24 21:00 05/17/24 10:07 Pantoprazole Sodium Iv 40 Mg Vial IV PUSH 40 mg Q12HR SANGEETA Administration Rosuvastatin Calcium 40 mg 05/12/24 09:00 05/17/24 10:07 Rosuvastatin 20 Mg Tablet PO 40 mg DAILY SANGEETA Administration Radiology Results: ITS Impressions Chest/Abdomen/Pelvis CT 05/11/24 18:29 IMPRESSION: Extensive right upper lobe, middle lobe and left lower lobe consolidating pneumonia, with mild mediastinal reactive lymph node enlargement Occasional pulmonary nodules, likely related to pulmonary granulomatous disease 29 x 31 mm left adrenal low-attenuation mass, likely due to adrenal adenoma, less likely metastasis Normal appendix Minimal sigmoid diverticulosis; no evidence of diverticulitis Moderate prostatomegaly 2. Fusiform infrarenal abdominal aortic aneurysms, measuring up to 4 cm Central venous right common femoral catheter in right common femoral vein Renal Ultrasound 05/12/24 15:15 IMPRESSION: Unremarkable renal sonogram findings. Carotid Doppler Study 05/12/24 15:34 IMPRESSION: 1. <50% stenosis in the right internal carotid artery. 2. 50-69% stenosis in the left internal carotid artery. Chest X-Ray 05/15/24 06:30 IMPRESSION: 1. There is been some interval improvement in bilateral airspace opacities greatest in the right mid and left lower lung zones consistent with pneumonia 2. Small left pleural effusion. Labs Labs: Laboratory Results - last 24 hr 05/16/24 05/16/24 05/16/24 11:42 16:32 17:13 WBC RBC Hgb 7.6 L Hct 22.5 L MCV MCH MCHC RDW Plt Count MPV Immature Gran % (Auto) Neut % (Auto) Lymph % (Auto) [place] % (Auto) Eos % (Auto) Baso % (Auto) Lymph # (Auto) [place] # (Auto) Eos # (Auto) Baso # (Auto) Abs Immat Gran (auto) Absolute Neuts (auto) Absolute Nucleated RBC Nucleated RBC % Platelet Estimate Hypochromasia Anisocytosis Schistocytes Sodium Potassium Chloride Carbon Dioxide Anion Gap BUN Creatinine Estim Creat Clear Calc Estimated GFR Glucose POC Capillary Glucose 175 H 176 H Calcium Phosphorus Magnesium Total Bilirubin AST ALT Alkaline Phosphatase Total Protein Albumin Stl Occult Blood (IFOB) Blood Type Antibody Screen Crossmatch 05/16/24 05/17/24 05/17/24 19:47 07:28 07:30 WBC 14.9 H RBC 2.27 L Hgb 6.5 L* Hct 19.2 L* MCV 84.6 MCH 28.6 MCHC 33.9 RDW 14.4 Plt Count 203 MPV 9.9 Immature Gran % (Auto) 5.8 H Neut % (Auto) 80.5 H Lymph % (Auto) 7.5 L [place] % (Auto) 6.1 Eos % (Auto) 0.0 Baso % (Auto) 0.1 L Lymph # (Auto) 1.12 [place] # (Auto) 0.9 H Eos # (Auto) 0.0 Baso # (Auto) 0.0 Abs Immat Gran (auto) 0.86 H Absolute Neuts (auto) 12.0 H Absolute Nucleated RBC 0.000 Nucleated RBC % 0.0 Platelet Estimate Adequate Hypochromasia 1+ Anisocytosis 1+ Schistocytes None seen Sodium 136 L Potassium 3.3 L Chloride 106 Carbon Dioxide 14 L Anion Gap 16 H BUN 165 H D Creatinine 6.80 H Estim Creat Clear Calc 9 Estimated GFR 8 L Glucose 169 H POC Capillary Glucose 235 H 187 H Calcium 7.3 L Phosphorus 7.2 H Magnesium 2.4 H Total Bilirubin 0.6 AST 21 ALT 29 Alkaline Phosphatase 74 Total Protein 5.0 L Albumin 2.9 L Stl Occult Blood (IFOB) Blood Type Antibody Screen Crossmatch 05/17/24 05/17/24 05/17/24 07:57 09:26 11:22 WBC RBC Hgb Hct MCV MCH MCHC RDW Plt Count MPV Immature Gran % (Auto) Neut % (Auto) Lymph % (Auto) [place] % (Auto) Eos % (Auto) Baso % (Auto) Lymph # (Auto) [place] # (Auto) Eos # (Auto) Baso # (Auto) Abs Immat Gran (auto) Absolute Neuts (auto) Absolute Nucleated RBC Nucleated RBC % Platelet Estimate Hypochromasia Anisocytosis Schistocytes Sodium Potassium Chloride Carbon Dioxide Anion Gap BUN Creatinine Estim Creat Clear Calc Estimated GFR Glucose POC Capillary Glucose 186 H Calcium Phosphorus Magnesium Total Bilirubin AST ALT Alkaline Phosphatase Total Protein Albumin Stl Occult Blood (IFOB) Positive H Blood Type O Positive Antibody Screen Negative Crossmatch See Detail
--- NOTE | 2024-05-17 12:34 | WPDGICN ---
Assessment and Plan Assessment and plan (1) Pneumonia: Qualifiers: Laterality: right Lung location: upper lobe of lung Pneumonia type: due to unspecified organism Qualified Code(s): J18.9 - Pneumonia, unspecified organism Code(s): J18.9 - Pneumonia, unspecified organism Status: Acute (2) Obstructive sleep apnea: Code(s): G47.33 - Obstructive sleep apnea (adult) (pediatric) Status: Acute (3) Multifocal pneumonia: Code(s): J18.9 - Pneumonia, unspecified organism Status: Acute (4) Acute blood loss anemia: Code(s): D62 - Acute posthemorrhagic anemia Status: Acute (5) Melena: Code(s): K92.1 - Melena Status: Acute Plan overall patient is hemodynamically stable but appears to be short of breath because of the pneumonia continue with the conservative management Plavix has been discontinued are on hold from yesterday serial H&H and transfuse as needed continue with the PPI twice a day Carafate 1g 3 times a day to cover for any stress ulcers will change diet to full liquid diet continue with the conservative management with close monitoring we will also get a chest x-ray once patient respiratory status gets better patient will need upper endoscopy for evaluation rule out any peptic ulcer disease thanks for the consult GI Consult Note Consult date/time: 05/17/24 12:34 Reason for consult: acute anemia dark/black stool pneumonia/shortness of breath on Plavix held yesterday abdominal aortic aneurysm HPI: Eladio Morrissey is a 74 year old male who came to the hospital with pneumonia shortness of breath most of the history is taken from patient's nurse was present at the bedside patient uses 4L of oxygen also uses BiPAP at nighttime. GI has consulted because of bleed agent is started going down the last H and H is 6.5 according to the nurses blood transplant has already been ordered according to the patient's nurse patient did have some black stool 2 days ago and now they are seeing Dr. Sol arambula as staff in the stool. Patient was also on Plavix which has been held yesterday and patient has been on PPI twice a day patient denies any nausea vomiting denies any abdominal pain. With patient's multiple comorbidities and shortness of breath not a very reliable historian himself. Records were reviewed Review of Systems Review of Systems: shortness of breath otherwise negative PMFSH Past Medical History Medical History Arthritis Carotid stenosis Chronic obstructive pulmonary disease Gout Hyperlipidemia Hypertension Hypothyroidism Obstructive sleep apnea Peripheral vascular disease Tobacco dependence Type 2 diabetes mellitus Surgical History Surgical History History of cardiac catheterization History of carotid endarterectomy History of cholecystectomy History of revascularization procedure of lower extremity Family History Family History Father Hypertension Cerebrovascular accident Grandparent Family history of malignant neoplasm Diabetes mellitus Sibling Family history of diabetes mellitus in first degree relative Diabetes mellitus Mother Hyperlipidemia Social History Social History Social History: Surrogate medical decision maker: Brooks Morrissey, son ([phone]) and Kira Morrissey, spouse ([phone]). Code status: Full code. Smoking packs per day: 1 Smoking cigarettes per day: 20.0 Years smoked: 30 Smoking pack-years: 30.00 Smoking status: Current every day smoker Tobacco type: cigarettes Second hand tobacco smoke exposure: Yes Alcohol intake: never Substance use: current Substance use type: marijuana Other substance usage details: smoking and edibles Do You Feel Safe in your Home?: Yes Lack of Transportation: No Lack of Food: Never True Current Housing: I Have Housing Concerned About Future Housing: No Difficulty Paying Gas/Electric Bills: No Difficulty Paying for Meds: No Currently Unemployed: No Education: High School Diploma/GED Difficulty w/ Childcare or Family Care: No Living arrangements: with family Occupation/Education: retired Spiritual care concerns: No Meds Home Medications and Allergies Home Medications Medication Instructions Recorded Confirmed Type albuterol sulfate 2.5 mg/3 mL 2.5 mg (3 mL) inhalation Q4-6H PRN 11/11/22 05/11/24 Rx (0.083 %) solution for nebulization shortness of breath or wheezing #75 mL albuterol sulfate 90 mcg/actuation 1 inh inhalation QID PRN 02/02/23 05/11/24 History aerosol inhaler (ProAir HFA) SOB/Wheezing aspirin 81 mg tablet,delayed 81 mg PO DAILY 02/02/23 05/11/24 History release (Adult Low Dose Aspirin) duloxetine 60 mg capsule,delayed 60 mg PO DAILY #90 caps 01/03/24 05/11/24 Rx release empagliflozin 12.5 mg-metformin 1 tablet PO BID #180 tabs 01/03/24 05/11/24 Rx 1,000 mg tablet (Synjardy) hydrochlorothiazide 25 mg tablet 25 mg PO DAILY #90 tabs 01/03/24 05/11/24 Rx levothyroxine 75 mcg tablet 75 mcg PO DAILY #90 tabs 01/03/24 05/11/24 Rx rosuvastatin 40 mg tablet 40 mg PO DAILY #90 tabs 01/03/24 05/11/24 Rx budesonide 160 mcg-glycopyr 9 2 inh inhalation BID #10.7 grams 05/05/24 05/11/24 Rx mcg-formot 4.8 mcg/actuation HFA inhaler (Breztri Aerosphere) sildenafil 100 mg tablet 100 mg PO DAILY PRN sexual 05/05/24 05/11/24 Rx activity #30 tabs amlodipine 10 mg tablet 10 mg PO DAILY 05/11/24 05/11/24 History carvedilol 12.5 mg tablet 12.5 mg PO DAILY 05/11/24 05/11/24 History clopidogrel 75 mg tablet 75 mg PO DAILY 05/11/24 05/11/24 History Allergies Allergy/AdvReac Type Severity Reaction Status Date / Time penicillin G Allergy Mild Unknown Verified 05/14/24 08:24 codeine Allergy Unknown Unknown Verified 05/11/24 15:38 Penicillins Allergy Unknown Unknown Verified 05/14/24 08:24 latex Allergy Unknown Verified 05/11/24 15:38 Vital Signs Vital Signs - 24 hr 05/16/24 13:50 05/16/24 13:57 05/16/24 14:00 Temperature Pulse Rate 71 75 53 L Respiratory Rate 20 22 H Blood Pressure Pulse Oximetry Oxygen Delivery Oxygen Flow Rate Fraction of Inspired Oxygen 05/16/24 15:39 05/16/24 16:00 05/16/24 18:00 Temperature 97.4 F L Pulse Rate 76 76 70 Respiratory Rate 22 H Blood Pressure 121/59 L Pulse Oximetry 91 Oxygen Delivery Oxygen Flow Rate Fraction of Inspired Oxygen 05/16/24 16:00 05/16/24 20:00 05/16/24 20:35 Temperature 97.5 F L Pulse Rate 77 74 Respiratory Rate 20 Blood Pressure 146/63 H Pulse Oximetry 91 90 Oxygen Delivery Nasal Cannula Oxygen Flow Rate 4 Fraction of Inspired Oxygen 05/16/24 20:53 05/16/24 20:54 05/16/24 20:54 Temperature Pulse Rate 71 70 Respiratory Rate 20 20 Blood Pressure Pulse Oximetry 95 98 Oxygen Delivery High Flow Nasal Cannula BiPAP Oxygen Flow Rate 4 Fraction of Inspired Oxygen 05/16/24 20:00 05/16/24 23:37 05/16/24 23:38 Temperature Pulse Rate 77 57 L 57 L Respiratory Rate 20 15 12 Blood Pressure Pulse Oximetry 90 98 98 Oxygen Delivery Nasal Cannula BiPAP BiPAP Oxygen Flow Rate 4 Fraction of Inspired Oxygen 40 05/17/24 00:00 05/16/24 20:00 05/16/24 22:00 Temperature 97.9 F Pulse Rate 66 71 52 L Respiratory Rate 20 Blood Pressure 152/47 H Pulse Oximetry 96 Oxygen Delivery Oxygen Flow Rate Fraction of Inspired Oxygen 05/17/24 00:00 05/17/24 01:17 05/17/24 01:54 Temperature Pulse Rate 58 L 70 67 Respiratory Rate Blood Pressure Pulse Oximetry 92 Oxygen Delivery Nasal Cannula Oxygen Flow Rate 4 Fraction of Inspired Oxygen 05/16/24 23:40 05/17/24 04:00 05/17/24 07:41 Temperature 97.9 F Pulse Rate 66 64 68 Respiratory Rate 20 20 17 Blood Pressure 121/42 L Pulse Oximetry 96 95 98 Oxygen Delivery BiPAP BiPAP Oxygen Flow Rate Fraction of Inspired Oxygen 40 05/17/24 07:29 05/17/24 04:00 05/17/24 04:00 Temperature 97.5 F L Pulse Rate 67 64 52 L Respiratory Rate 21 H 20 Blood Pressure 149/60 H Pulse Oximetry 98 95 Oxygen Delivery BiPAP Oxygen Flow Rate Fraction of Inspired Oxygen 40 05/17/24 06:00 05/17/24 07:50 05/17/24 08:05 Temperature Pulse Rate 51 L 74 76 Respiratory Rate 20 20 Blood Pressure Pulse Oximetry Oxygen Delivery Oxygen Flow Rate Fraction of Inspired Oxygen 05/17/24 10:10 05/17/24 11:01 05/17/24 11:17 Temperature 98 F 97.6 F Pulse Rate 68 70 68 Respiratory Rate 18 18 Blood Pressure 132/59 L 129/54 L Pulse Oximetry 94 94 Oxygen Delivery Oxygen Flow Rate Fraction of Inspired Oxygen 05/17/24 12:17 05/17/24 12:17 Temperature 97.8 F 97.8 F Pulse Rate 66 66 Respiratory Rate 18 18 Blood Pressure 138/58 L 138/58 L Pulse Oximetry 95 95 Oxygen Delivery Oxygen Flow Rate Fraction of Inspired Oxygen Exam Narrative: appears to be short of breath on 4L oxygen HENMT: Other: pupils equal reactive Neck: Other: supple Chest: Other: air entry equal Resp: Other: air entry equal bilateral decreased at the bases Cardio: Other: S1-S2 regular rate rhythm GI: Other: abdomen soft nontender bowel sounds positive Neuro: Other: intact Results Labs 05/17/24 07:28 05/17/24 07:28 Labs: Short CBC 05/16/24 05/17/24 Range/Units 17:13 07:28 WBC 14.9 H (4.5-10.0) K/mm3 Hgb 7.6 L 6.5 L* (14.0-18.0) g/dL Hct 22.5 L 19.2 L* (42.0-52.0) % Plt Count 203 (150-375) k/mm3 BMP 05/17/24 07:28 Sodium 136 L Potassium 3.3 L Chloride 106 Carbon Dioxide 14 L BUN 165 H D Creatinine 6.80 H Glucose 169 H Calcium 7.3 L Liver Function 05/17/24 Range/Units 07:28 Total Bilirubin 0.6 (0.2-1.3) mg/dL AST 21 (17-59) U/L ALT 29 (6-50) U/L Alkaline Phosphatase 74 (38-126) U/L Albumin 2.9 L (3.5-5.1) g/dL
--- NOTE | 2024-05-17 13:17 | PCPTNOTE ---
Patient refused therapy at this time stating he did not want to do it and he would like to find his . RN updated.
[2024-05-17] MEDS: SODIUM BICARBONATE TAB 650 MG TABLET 1300 MG PO ×2 (13:24→17:13)
[2024-05-17] MEDS: POTASSIUM CHLORIDE 20 MEQ PACKET (FOR LIQUID) PO (13:24)
--- NOTE | 2024-05-17 13:41 | P.PNNP_ITS ---
Progress Note: A&P Assessment and Plan (1) Acute kidney injury: Code(s): N17.9 - Acute kidney failure, unspecified Status: Acute Assessment and Plan: * as noted on admission with a creatinine of 4.4mg/dl * unfortunately, only recent labs to compare to are from 2019 (see #2) * evaluation to date noted: * admission CT scan without obstruction * urine electrolytes prerenal * urine eosinophils negative * UA with blood and moderate proteinuria * CPK mildly elevated (probably not enough to affect kidney function) * suspect insult due several issues: * hemodynamic instability/shock * sepsis/infection (bacteremia) * prerenal factors * 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 * He is making more urine. * However his BUN is higher. * This is because of his renal insufficiency. However generally BUN will come down along with the creatinine when the kidney function improves. In this case, he is on steroids and also has a GI bleed with blood in his intestinal lumen so the BUN is higher. * The patient does not have much of an appetite but does not have uremic symptoms otherwise so hold off on dialysis for today but reassess for tomorrow. * It will be nice if we could reduce the steroids. I see that this was done today. * s/p trial of diuretics on 05/14 with good urine output * follow repeat labs and UOP for potential recovery (2) Stage 3a chronic kidney disease: Code(s): N18.31 - Chronic kidney disease, stage 3a Status: Chronic Assessment and Plan: * last creatinine noted at 1.4mg/dl (although this was from 2019) * presumably due to HTN, vascular disease (LE vascular disease, carotid stenosis, AAA, hyperlipidemia), diabetes, COPD/CJ and age-related change * cannot discount an element of CKD progression.... (3) Septic shock: Code(s): A41.9 - Sepsis, unspecified organism; R65.21 - Severe sepsis with septic shock Status: Acute Assessment and Plan: * thought to be secondary to pneumonia and possibly UTI * s/p aggressive IVF resuscitation * off vasopressor therapy at this time * follow culture data - 05/11 blood cultures with Streptococcus pneumoniae * urine culture negative * repeat blood cultures are negative * on ceftriaxone * WBC came down a little bit and the patient is afebrile (4) Acute respiratory failure: Code(s): J96.00 - Acute respiratory failure, unspecified whether with hypoxia or hypercapnia Status: Acute Assessment and Plan: * due to severe/significant pneumonia as noted by admission imaging * no respiratory distress but noted profound hypoxia on admission * complicated by known history of COPD * off BiPAP and is on nasal cannula at 4 L per minute * continue bronchodilators and antibiotic therapy * Echo results noted * follow respiratory status (5) Systolic CHF: Code(s): I50.20 - Unspecified systolic (congestive) heart failure Status: Acute Assessment and Plan: * acute versus chronic? * Echo results noted: * left ventricular systolic function is moderately globally reduced - javi mated at 35-40% * left ventricular diastolic function is grade I diastolic dysfunction * mild aortic valve sclerosis * trace mitral valve regurgitation * volume status appears stable * Cardiology following (6) Multifocal pneumonia: Code(s): J18.9 - Pneumonia, unspecified organism Status: Acute Assessment and Plan: * as noted by admission imaging * continue respiratory support * culture data noted * on antibiotics (7) Anemia: Qualifiers: Anemia type: unspecified type Qualified Code(s): D64.9 - Anemia, unspecified Code(s): D64.9 - Anemia, unspecified Status: Acute Assessment and Plan: * due to LEIA, CKD, and acute illness he also has black stools which are guaiac positive. * GI getting involved. He is on Protonix * on Retacrit while inpatient * to get a unit of blood per nursing (8) Chronic obstructive pulmonary disease: Qualifiers: COPD type: emphysema Emphysema type: unspecified Qualified Code(s): J43.9 - Emphysema, unspecified Code(s): J44.9 - Chronic obstructive pulmonary disease, unspecified Status: Chronic Assessment and Plan: * known history * see #4 (9) Type 2 diabetes mellitus: Code(s): E11.9 - Type 2 diabetes mellitus without complications Status: Acute Assessment and Plan: * follow accu-cheks * glycemic control per operating room tech/hospitalists Subjective Date/time seen: 05/17/24 13:41 Interval history: Patient is feeling about the same. Poor appetite but no nausea or vomiting. No chest pain Exam Narrative: General: elderly but WD/WN male in NAD Heart: normal S1 and S2; no rub Lungs: coarse with a few bibasilar crackles Abdomen: soft, nontender, nondistended, positive bowel sounds Extremities: no cyanosis or clubbing; no edema Skin: no rash Objective Data Vital Signs Vital Signs: Vital Signs - 24 hr 05/16/24 13:50 05/16/24 13:57 05/16/24 14:00 Temperature Pulse Rate 71 75 53 L Respiratory Rate 20 22 H Blood Pressure Pulse Oximetry Oxygen Delivery Oxygen Flow Rate Fraction of Inspired Oxygen 05/16/24 15:39 05/16/24 16:00 05/16/24 18:00 Temperature 97.4 F L Pulse Rate 76 76 70 Respiratory Rate 22 H Blood Pressure 121/59 L Pulse Oximetry 91 Oxygen Delivery Oxygen Flow Rate Fraction of Inspired Oxygen 05/16/24 16:00 05/16/24 20:00 05/16/24 20:35 Temperature 97.5 F L Pulse Rate 77 74 Respiratory Rate 20 Blood Pressure 146/63 H Pulse Oximetry 91 90 Oxygen Delivery Nasal Cannula Oxygen Flow Rate 4 Fraction of Inspired Oxygen 05/16/24 20:53 05/16/24 20:54 05/16/24 20:54 Temperature Pulse Rate 71 70 Respiratory Rate 20 20 Blood Pressure Pulse Oximetry 95 98 Oxygen Delivery High Flow Nasal Cannula BiPAP Oxygen Flow Rate 4 Fraction of Inspired Oxygen 05/16/24 20:00 05/16/24 23:37 05/16/24 23:38 Temperature Pulse Rate 77 57 L 57 L Respiratory Rate 20 15 12 Blood Pressure Pulse Oximetry 90 98 98 Oxygen Delivery Nasal Cannula BiPAP BiPAP Oxygen Flow Rate 4 Fraction of Inspired Oxygen 40 05/17/24 00:00 05/16/24 20:00 05/16/24 22:00 Temperature 97.9 F Pulse Rate 66 71 52 L Respiratory Rate 20 Blood Pressure 152/47 H Pulse Oximetry 96 Oxygen Delivery Oxygen Flow Rate Fraction of Inspired Oxygen 05/17/24 00:00 05/17/24 01:17 05/17/24 01:54 Temperature Pulse Rate 58 L 70 67 Respiratory Rate Blood Pressure Pulse Oximetry 92 Oxygen Delivery Nasal Cannula Oxygen Flow Rate 4 Fraction of Inspired Oxygen 05/16/24 23:40 05/17/24 04:00 05/17/24 07:41 Temperature 97.9 F Pulse Rate 66 64 68 Respiratory Rate 20 20 17 Blood Pressure 121/42 L Pulse Oximetry 96 95 98 Oxygen Delivery BiPAP BiPAP Oxygen Flow Rate Fraction of Inspired Oxygen 40 05/17/24 07:29 05/17/24 04:00 05/17/24 04:00 Temperature 97.5 F L Pulse Rate 67 64 52 L Respiratory Rate 21 H 20 Blood Pressure 149/60 H Pulse Oximetry 98 95 Oxygen Delivery BiPAP Oxygen Flow Rate Fraction of Inspired Oxygen 40 05/17/24 06:00 05/17/24 07:50 05/17/24 08:05 Temperature Pulse Rate 51 L 74 76 Respiratory Rate 20 20 Blood Pressure Pulse Oximetry Oxygen Delivery Oxygen Flow Rate Fraction of Inspired Oxygen 05/17/24 10:10 05/17/24 11:01 05/17/24 11:17 Temperature 98 F 97.6 F Pulse Rate 68 70 68 Respiratory Rate 18 18 Blood Pressure 132/59 L 129/54 L Pulse Oximetry 94 94 Oxygen Delivery Oxygen Flow Rate Fraction of Inspired Oxygen 05/17/24 12:17 05/17/24 12:17 Temperature 97.8 F 97.8 F Pulse Rate 66 66 Respiratory Rate 18 18 Blood Pressure 138/58 L 138/58 L Pulse Oximetry 95 95 Oxygen Delivery Oxygen Flow Rate Fraction of Inspired Oxygen Intake/Output Intake/Output: Intake & Output 05/14/24 05/15/24 05/16/24 05/17/24 23:59 23:59 23:59 23:59 Intake Total 1310 1240 950 100 Output Total 850 1750 2070 725 Balance 092 -510 -1120 -625 Meds/Results Medications: Active Medications Generic Name Dose Route Start Last Admin Trade Name Freq PRN Reason Stop Dose Admin Acetaminophen 650 mg 05/11/24 18:35 05/12/24 08:08 Acetaminophen 325 Mg Tablet PO 650 mg Q4H PRN Administration Mild Pain (1-3) or Fever Albuterol/Ipratropium 3 ml 05/12/24 02:00 05/17/24 07:36 Ipratropium 0.5 Mg/Albuterol Sulfate 2.5 Mg Ampul.Neb 3 Ml INHALATION 3 ml Q6HRT SANGEETA Administration Amlodipine Besylate 10 mg 05/16/24 09:00 05/17/24 10:09 Amlodipine Besylate 10 Mg Tablet PO 10 mg DAILY SANGEETA Administration Aspirin 81 mg 05/12/24 09:00 05/16/24 09:04 Aspirin 81 Mg Enteric Tablet PO 81 mg DAILY SANGEETA Administration Carvedilol 12.5 mg 05/16/24 09:00 05/17/24 10:10 Carvedilol 12.5 Mg Tablet PO 12.5 mg Q12HR SANGEETA Administration Clopidogrel Bisulfate 75 mg 05/12/24 09:00 05/16/24 09:04 Clopidogrel Bisulfate 75 Mg Tablet PO 75 mg DAILY SANGEETA Administration Dextrose 12.5 gm 05/11/24 22:22 Dextrose 50% 25 Gm/50 Ml Syringe IV PUSH PRN PRN Hypoglycemia Protocol Epoetin Shimon-epbx 10,000 units 05/17/24 09:00 05/17/24 10:23 Epoetin Shimon-Epbx 10,000 Units/Ml Vial SUB-Q 10,000 units TUTHSA@09 SANGEETA Administration Famotidine 20 mg 05/14/24 09:00 05/16/24 09:00 Famotidine 20 Mg/2 Ml Vial IV PUSH 20 mg DAILY SANGEETA Administration Fluticasone/Umeclidinium/Vilanterol 1 puff 05/12/24 08:00 05/17/24 13:27 Fluticasone/Umeclidin/Vilanter 100-62.5-25 Mcg Ellipta INHALATION Not Given DAILYRT [facility] Glucagon 1 mg 05/11/24 22:22 Glucagon For Inj 1 Mg Vial IM PRN PRN Hypoglycemia Protocol Glucose 15 gm 05/11/24 22:22 Glucose Oral Gel 15 Gm Of Glucse In 37.5 Gm Tube PO PRN PRN Hypoglycemia Protocol Guaifenesin 1,200 mg 05/12/24 09:00 05/17/24 10:07 Guaifenesin 12 Hr 600 Mg Tabcr PO 1,200 mg Q12HR SANGEETA Administration Heparin Sodium (Porcine) 5,000 units 05/12/24 09:00 05/16/24 09:02 Heparin Sodium 5,000 Units/Ml Vial SUB-Q 5,000 units Q12HR SANGEETA Administration Hydralazine HCl 10 mg 05/15/24 17:22 05/16/24 00:13 Hydralazine Hcl 20 Mg/Ml Vial IV PUSH 10 mg Q6H PRN Administration Blood Pressure - High Hydrocortisone Sodium Succinate 50 mg 05/17/24 11:45 05/17/24 13:22 Hydrocortisone Sodium Succinate 100 Mg/2 Ml Vial IV PUSH Not Given Q8H SANGEETA Dextrose 1,000 mls @ 100 mls/hr 05/11/24 22:22 Dextrose 5% 1,000 Ml IVPB PRN PRN Hypoglycemia Protocol Ceftriaxone Sodium 2 gm in 100 mls @ 200 mls/hr 05/14/24 10:15 05/17/24 10:24 Rocephin 2 Gm/Ns 100 Ml IVPB 200 mls/hr QAM SANGEETA Administration Sodium Chloride 250 mls @ 30 mls/hr 05/17/24 08:39 05/17/24 11:14 Normal Saline Iv IV CONT 05/17/24 16:58 30 mls/hr .Q8H20M STA Administration Insulin Aspart 4 - 8 units 05/15/24 21:00 05/17/24 11:49 Insulin Aspart (*Bkc) 100 Units/Ml SUB-Q Not Given 0800,1200,1700,2100 [facility] Protocol Levothyroxine Sodium 75 mcg 05/12/24 06:30 05/17/24 05:23 Levothyroxine Sodium 75 Mcg Tablet PO 75 mcg DAILY@0630 SANGEETA Administration Ondansetron HCl 4 mg 05/11/24 18:35 05/17/24 00:55 Ondansetron Inj 4 Mg/2 Ml Vial IV PUSH 4 mg Q4H PRN Administration Nausea Pantoprazole Sodium 40 mg 05/16/24 21:00 05/17/24 10:07 Pantoprazole Sodium Iv 40 Mg Vial IV PUSH 40 mg Q12HR SANGEETA Administration Rosuvastatin Calcium 40 mg 05/12/24 09:00 05/17/24 10:07 Rosuvastatin 20 Mg Tablet PO 40 mg DAILY SANGEETA Administration Sodium Bicarbonate 1,300 mg 05/17/24 12:05 05/17/24 13:24 Sodium Bicarbonate Tab 650 Mg Tablet PO 1,300 mg BID SANGEETA Administration Sucralfate 1,000 mg 05/17/24 16:30 Sucralfate Susp 100 Mg/Ml 10 Ml Udc PO TIDAC [facility] Radiology Results: ITS Impressions Chest/Abdomen/Pelvis CT 05/11/24 18:29 IMPRESSION: Extensive right upper lobe, middle lobe and left lower lobe consolidating pneumonia, with mild mediastinal reactive lymph node enlargement Occasional pulmonary nodules, likely related to pulmonary granulomatous disease 29 x 31 mm left adrenal low-attenuation mass, likely due to adrenal adenoma, less likely metastasis Normal appendix Minimal sigmoid diverticulosis; no evidence of diverticulitis Moderate prostatomegaly 2. Fusiform infrarenal abdominal aortic aneurysms, measuring up to 4 cm Central venous right common femoral catheter in right common femoral vein Renal Ultrasound 05/12/24 15:15 IMPRESSION: Unremarkable renal sonogram findings. Carotid Doppler Study 05/12/24 15:34 IMPRESSION: 1. <50% stenosis in the right internal carotid artery. 2. 50-69% stenosis in the left internal carotid artery. Labs Labs: Laboratory Results - last 24 hr 05/16/24 05/16/24 05/16/24 16:32 17:13 19:47 WBC RBC Hgb 7.6 L Hct 22.5 L MCV MCH MCHC RDW Plt Count MPV Immature Gran % (Auto) Neut % (Auto) Lymph % (Auto) [place] % (Auto) Eos % (Auto) Baso % (Auto) Lymph # (Auto) [place] # (Auto) Eos # (Auto) Baso # (Auto) Abs Immat Gran (auto) Absolute Neuts (auto) Absolute Nucleated RBC Nucleated RBC % Platelet Estimate Hypochromasia Anisocytosis Schistocytes Sodium Potassium Chloride Carbon Dioxide Anion Gap BUN Creatinine Estim Creat Clear Calc Estimated GFR Glucose POC Capillary Glucose 176 H 235 H Calcium Phosphorus Magnesium Total Bilirubin AST ALT Alkaline Phosphatase Total Protein Albumin Stl Occult Blood (IFOB) Blood Type Antibody Screen Crossmatch 05/17/24 05/17/24 05/17/24 07:28 07:30 07:57 WBC 14.9 H RBC 2.27 L Hgb 6.5 L* Hct 19.2 L* MCV 84.6 MCH 28.6 MCHC 33.9 RDW 14.4 Plt Count 203 MPV 9.9 Immature Gran % (Auto) 5.8 H Neut % (Auto) 80.5 H Lymph % (Auto) 7.5 L [place] % (Auto) 6.1 Eos % (Auto) 0.0 Baso % (Auto) 0.1 L Lymph # (Auto) 1.12 [place] # (Auto) 0.9 H Eos # (Auto) 0.0 Baso # (Auto) 0.0 Abs Immat Gran (auto) 0.86 H Absolute Neuts (auto) 12.0 H Absolute Nucleated RBC 0.000 Nucleated RBC % 0.0 Platelet Estimate Adequate Hypochromasia 1+ Anisocytosis 1+ Schistocytes None seen Sodium 136 L Potassium 3.3 L Chloride 106 Carbon Dioxide 14 L Anion Gap 16 H BUN 165 H D Creatinine 6.80 H Estim Creat Clear Calc 9 Estimated GFR 8 L Glucose 169 H POC Capillary Glucose 187 H Calcium 7.3 L Phosphorus 7.2 H Magnesium 2.4 H Total Bilirubin 0.6 AST 21 ALT 29 Alkaline Phosphatase 74 Total Protein 5.0 L Albumin 2.9 L Stl Occult Blood (IFOB) Positive H Blood Type Antibody Screen Crossmatch 05/17/24 05/17/24 09:26 11:22 WBC RBC Hgb Hct MCV MCH MCHC RDW Plt Count MPV Immature Gran % (Auto) Neut % (Auto) Lymph % (Auto) [place] % (Auto) Eos % (Auto) Baso % (Auto) Lymph # (Auto) [place] # (Auto) Eos # (Auto) Baso # (Auto) Abs Immat Gran (auto) Absolute Neuts (auto) Absolute Nucleated RBC Nucleated RBC % Platelet Estimate Hypochromasia Anisocytosis Schistocytes Sodium Potassium Chloride Carbon Dioxide Anion Gap BUN Creatinine Estim Creat Clear Calc Estimated GFR Glucose POC Capillary Glucose 186 H Calcium Phosphorus Magnesium Total Bilirubin AST ALT Alkaline Phosphatase Total Protein Albumin Stl Occult Blood (IFOB) Blood Type O Positive Antibody Screen Negative Crossmatch See Detail
[2024-05-17 17:11] LABS: Glucose Point of Care 180 mg/dl (65-105)
[2024-05-17] MEDS: SUCRALFATE SUSP 100 MG/ML 10 ML UDC 1000 MG PO (17:13)
[2024-05-17 18:02] LABS: Hematocrit 23.3 % (42.0-52.0); Hemoglobin 7.7 g/dL (14.0-18.0)
[2024-05-17 19:54] LABS: Mycoplasma IgM Antibody Titer 225 U/mL
[2024-05-17 20:49] LABS: Glucose Point of Care 146 mg/dl (65-105)
[2024-05-17] MEDS: ACETYLCYSTEINE 20% INHAL SOLN 800 MG/4 ML VIAL 200 MG INHALATION (21:25)
[2024-05-17 21:54] LABS: Legionella pneumophila Ag Ur NOT DETECTED
[2024-05-18] VITALS (30 sets, daily range): BP systolic 125–137; BP diastolic 51–57; PULSE 47–78; RESP 16–24; TEMP 36.3–36.6; O2SAT 91–100
[2024-05-18] MEDS: IPRATROPIUM 0.5 MG/ALBUTEROL SULFATE 2.5 MG AMPUL.NEB 3 ML INHALATION ×4 (02:34→21:07)
[2024-05-18] MEDS: ACETYLCYSTEINE 20% INHAL SOLN 800 MG/4 ML VIAL 200 MG INHALATION ×4 (02:37→21:07)
[2024-05-18] MEDS: SUCRALFATE SUSP 100 MG/ML 10 ML UDC 1000 MG PO ×3 (05:38→17:25)
[2024-05-18] MEDS: LEVOTHYROXINE SODIUM 75 MCG TABLET PO (05:38)
[2024-05-18] MEDS: SODIUM CHLOR 3% 15 ML NEB (RESPIRATORY THERAPY) 6 ML INHALATION (05:49)
[2024-05-18 06:01] LABS: Basophils Percent Auto 0.2 % (0.2-1.2); Eosinophils Absolute Auto 0.2 K/mm3 (0-0.3); Eosinophils Percent Auto 1.4 % (0-4.4); Hematocrit 22.9 % (42.0-52.0); Hemoglobin 7.9 g/dL (14.0-18.0); Immature Granulocyte Absolute 1.23 K/mm3 (0.00-0.031); Immature Granulocyte Percent A 7.5 % (0-0.5); Lymphocytes Absolute Auto 2.31 K/mm3 (0.9-3.2); Lymphocytes Percent Auto 14.1 % (18.3-44.2); Mean Corpuscular HGB Conc 34.5 g/dl (32-36); Mean Corpuscular Hemoglobin 28.6 pg (26-34); Mean Platelet Volume 9.4 fl (7.4-10.4); Monocytes Absolute Auto 1.3 K/mm3 (0.1-0.6); Monocytes Percent Auto 8.2 % (2.6-8.5); Neutrophils Absolute Auto 11.3 K/mm3 (1.3-6.7); Neutrophils Percent Auto 68.6 % (45.5-73.1); Platelet Count Result 230 k/mm3 (150-375); Red Blood Count 2.76 M/mm3 (4.6-6.20); Red Cell Distribution Width 13.9 % (11.5-14.5); White Blood Count 16.4 K/mm3 (4.5-10.0)
[2024-05-18 06:13] LABS: Alanine Aminotransferase 25 U/L (6-50); Alkaline Phosphatase 73 U/L (38-126); Anion Gap 12 mmol/L (4-12); Aspartate Amino Transferase 22 U/L (17-59); Bilirubin,Total 0.6 mg/dL (0.2-1.3); Calcium 7.3 mg/dL (8.4-10.2); Carbon Dioxide 16 mmol/L (22-30); Chloride 108 mmol/L (98-107); Estimated CRCL calculation 9 ml/min; Estimated Glomerular Filt Rate 8; Glucose 119 mg/dL (65-110); Magnesium 2.4 mg/dL (1.6-2.3); Potassium 3.1 mmol/L (3.4-5.0); Sodium 136 mmol/L (137-145)
[2024-05-18 06:21] LABS: Blood Urea Nitrogen 159 mg/dL (9-20)
[2024-05-18 06:41] LABS: Anisocytosis 1+; Hypochromasia 1+; Ovalocytes 1+; Platelet Estimate Adequate (Adequate); Schistocytes None Seen
[2024-05-18] MEDS: FLUTICASONE/UMECLIDIN/VILANTER 100-62.5-25 MCG ELLIPTA 1 PUFF INHALATION (07:47)
[2024-05-18 08:05] LABS: Glucose Point of Care 133 mg/dl (65-105)
--- NOTE | 2024-05-18 09:14 | P.PNNP_ITS ---
Progress Note: A&P Assessment and Plan (1) Acute kidney injury: Code(s): N17.9 - Acute kidney failure, unspecified Status: Acute Assessment and Plan: * as noted on admission with a creatinine of 4.4mg/dl * unfortunately, only recent labs to compare to are from 2019 (see #2) * evaluation to date noted: * admission CT scan without obstruction * urine electrolytes prerenal * urine eosinophils negative * UA with blood and moderate proteinuria * CPK mildly elevated (probably not enough to affect kidney function) * suspect insult due several issues: * hemodynamic instability/shock * sepsis/infection (bacteremia) * prerenal factors * diuretic therapy [employer] * profound hypoxia * his creatinine and also the BUN came down a little bit.. * He is making more urine. * because he is making more urine, BUN and creatinine are improving, fluid status is okay and oxygenation okay, and he has no symptoms of uremia, I think we can hold off for another day off dialysis. hopefully recover will happen soon enough. (2) Stage 3a chronic kidney disease: Code(s): N18.31 - Chronic kidney disease, stage 3a Status: Chronic Assessment and Plan: * last creatinine noted at 1.4mg/dl (although this was from 2019) * presumably due to HTN, vascular disease (LE vascular disease, carotid stenosis, AAA, hyperlipidemia), diabetes, COPD/JC and age-related change * cannot discount an element of CKD progression. (3) Septic shock: Code(s): A41.9 - Sepsis, unspecified organism; R65.21 - Severe sepsis with septic shock Status: Acute Assessment and Plan: * thought to be secondary to pneumonia and possibly UTI * s/p aggressive IVF resuscitation * off vasopressor therapy at this time * follow culture data - 05/11 blood cultures with Streptococcus pneumoniae * urine culture negative * repeat blood cultures are negative * on ceftriaxone * The patient is afebrile. White count seems to be stuck in the mid teen (4) Acute respiratory failure: Code(s): J96.00 - Acute respiratory failure, unspecified whether with hypoxia or hypercapnia Status: Acute Assessment and Plan: * due to severe/significant pneumonia as noted by admission imaging * no respiratory distress but noted profound hypoxia on admission * complicated by known history of COPD * off BiPAP except for slumbar and is on nasal cannula at 4 L per minute during the day * continue bronchodilators and antibiotic therapy * Echo results noted * follow respiratory status (5) Systolic CHF: Code(s): I50.20 - Unspecified systolic (congestive) heart failure Status: Acute Assessment and Plan: * acute versus chronic? * Echo results noted: * left ventricular systolic function is moderately globally reduced - estimated at 35-40% * left ventricular diastolic function is grade I diastolic dysfunction * mild aortic valve sclerosis * trace mitral valve regurgitation * volume status appears stable * Cardiology following (6) Multifocal pneumonia: Code(s): J18.9 - Pneumonia, unspecified organism Status: Acute Assessment and Plan: * as noted by admission imaging * continue respiratory support * culture data noted * on antibiotics (7) Anemia: Qualifiers: Anemia type: unspecified type Qualified Code(s): D64.9 - Anemia, unspecified Code(s): D64.9 - Anemia, unspecified Status: Acute Assessment and Plan: * due to LEIA, CKD, and acute illness he also has black stools which are guaiac positive. * GI getting involved. He is on Protonix * on Retacrit while inpatient * he received blood yesterday. Hemoglobin was 7.7 yesterday and is 7.9 this morning. 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 No shortness of breath or chest interactive. Exam Narrative: General: elderly but WD/WN male in NAD Heart: normal S1 and S2; no rub Lungs: symmetric and no wheezes Abdomen: soft, nontender, nondistended, positive bowel sounds Extremities: no edema Skin: no rash or subcu nodules Objective Data Vital Signs Vital Signs: Vital Signs - 24 hr 05/17/24 10:10 05/17/24 11:01 05/17/24 11:17 Temperature 98 F 97.6 F Pulse Rate 68 70 68 Respiratory Rate 18 18 Blood Pressure 132/59 L 129/54 L Pulse Oximetry 94 94 Oxygen Delivery Oxygen Flow Rate Fraction of Inspired Oxygen 05/17/24 12:17 05/17/24 12:17 05/17/24 13:17 Temperature 97.8 F 97.8 F 97.4 F L Pulse Rate 66 66 62 Respiratory Rate 18 18 24 H Blood Pressure 138/58 L 138/58 L 119/50 L Pulse Oximetry 95 95 90 Oxygen Delivery Oxygen Flow Rate Fraction of Inspired Oxygen 05/17/24 13:48 05/17/24 12:00 05/17/24 10:00 Temperature 97.6 F Pulse Rate 55 L 65 Respiratory Rate 20 Blood Pressure 135/54 L Pulse Oximetry 91 95 Oxygen Delivery Nasal Cannula Oxygen Flow Rate 4 Fraction of Inspired Oxygen 05/17/24 12:00 05/17/24 14:00 05/17/24 16:00 Temperature 97.8 F Pulse Rate 57 L 67 62 Respiratory Rate 20 Blood Pressure 106/43 L Pulse Oximetry 98 Oxygen Delivery Oxygen Flow Rate Fraction of Inspired Oxygen 05/17/24 16:00 05/17/24 16:00 05/17/24 18:00 Temperature Pulse Rate 61 59 L Respiratory Rate Blood Pressure Pulse Oximetry 98 Oxygen Delivery Nasal Cannula Oxygen Flow Rate 4 Fraction of Inspired Oxygen 05/17/24 20:27 05/17/24 20:00 05/17/24 21:22 Temperature 97.8 F Pulse Rate 60 63 62 Respiratory Rate 18 18 Blood Pressure 143/53 H Pulse Oximetry 97 Oxygen Delivery Oxygen Flow Rate Fraction of Inspired Oxygen 05/17/24 21:23 05/17/24 21:24 05/17/24 23:58 Temperature 97.6 F Pulse Rate 62 58 L Respiratory Rate 18 19 Blood Pressure 129/54 L Pulse Oximetry 96 96 100 Oxygen Delivery BiPAP BiPAP Oxygen Flow Rate Fraction of Inspired Oxygen 40 05/18/24 02:41 05/18/24 02:42 05/17/24 20:00 Temperature Pulse Rate 57 L 57 L 64 Respiratory Rate 24 H 24 H Blood Pressure Pulse Oximetry 94 Oxygen Delivery BiPAP Oxygen Flow Rate Fraction of Inspired Oxygen 05/17/24 20:00 05/17/24 22:00 05/18/24 00:00 Temperature Pulse Rate 63 52 L 47 L Respiratory Rate 18 Blood Pressure Pulse Oximetry 97 Oxygen Delivery Nasal Cannula Oxygen Flow Rate 4 Fraction of Inspired Oxygen 05/18/24 00:30 05/18/24 02:00 05/18/24 04:00 Temperature Pulse Rate 58 L 60 48 L Respiratory Rate 19 Blood Pressure Pulse Oximetry 100 Oxygen Delivery BiPAP Oxygen Flow Rate Fraction of Inspired Oxygen 40 05/18/24 04:00 05/18/24 05:25 05/18/24 05:48 Temperature Pulse Rate 48 L 62 66 Respiratory Rate 16 22 H Blood Pressure Pulse Oximetry 97 94 Oxygen Delivery BiPAP BiPAP Oxygen Flow Rate Fraction of Inspired Oxygen 40 05/18/24 05:54 05/18/24 05:10 05/18/24 07:21 Temperature 97.8 F 97.6 F Pulse Rate 61 58 L 59 L Respiratory Rate 21 H 21 H 19 Blood Pressure 137/57 L 125/52 L Pulse Oximetry 95 95 Oxygen Delivery Oxygen Flow Rate Fraction of Inspired Oxygen 05/18/24 07:27 05/18/24 07:27 05/18/24 07:27 Temperature Pulse Rate 57 L 57 L Respiratory Rate 18 18 Blood Pressure Pulse Oximetry 93 93 Oxygen Delivery BiPAP BiPAP Oxygen Flow Rate Fraction of Inspired Oxygen 40 05/18/24 07:48 Temperature Pulse Rate 60 Respiratory Rate 20 Blood Pressure Pulse Oximetry Oxygen Delivery Oxygen Flow Rate Fraction of Inspired Oxygen Intake/Output Intake/Output: Intake & Output 05/15/24 05/16/24 05/17/24 05/18/24 23:59 23:59 23:59 23:59 Intake Total 5362 825 1341 1000 Output Total 1750 2070 1775 950 [facility] -510 -1120 -125 50 Meds/Results Medications: Active Medications Generic Name Dose Route Start Last Admin Trade Name Freq PRN Reason Stop Dose Admin Acetaminophen 650 mg 05/11/24 18:35 05/12/24 08:08 Acetaminophen 325 Mg Tablet PO 650 mg Q4H PRN Administration Mild Pain (1-3) or Fever Acetylcysteine 200 mg 05/17/24 20:00 05/18/24 07:26 Acetylcysteine 20% Inhal Soln 800 Mg/4 Ml Vial INHALATION 200 mg Q6HRT SANGEETA Administration Albuterol/Ipratropium 3 ml 05/12/24 02:00 05/18/24 07:26 Ipratropium 0.5 Mg/Albuterol Sulfate 2.5 Mg Ampul.Neb 3 Ml INHALATION 3 ml Q6HRT SANGEETA Administration Amlodipine Besylate 10 mg 05/16/24 09:00 05/17/24 10:09 Amlodipine Besylate 10 Mg Tablet PO 10 mg DAILY SANGEETA Administration Aspirin 81 mg 05/12/24 09:00 05/16/24 09:04 Aspirin 81 Mg Enteric Tablet PO 81 mg DAILY SANGEETA Administration Carvedilol 12.5 mg 05/16/24 09:00 05/17/24 20:27 Carvedilol 12.5 Mg Tablet PO 12.5 mg Q12HR SANGEETA Administration Clopidogrel Bisulfate 75 mg 05/12/24 09:00 05/16/24 09:04 Clopidogrel Bisulfate 75 Mg Tablet PO 75 mg DAILY SANGEETA Administration Dextrose 12.5 gm 05/11/24 22:22 Dextrose 50% 25 Gm/50 Ml Syringe IV PUSH PRN PRN Hypoglycemia Protocol Epoetin Shimon-epbx 10,000 units 05/17/24 09:00 05/17/24 10:23 Epoetin Shimon-Epbx 10,000 Units/Ml Vial SUB-Q 10,000 units TUTA@09 SANGEETA Administration Famotidine 20 mg 05/14/24 09:00 05/16/24 09:00 Famotidine 20 Mg/2 Ml Vial IV PUSH 20 mg DAILY SANGEETA Administration Fluticasone/Umeclidinium/Vilanterol 1 puff 05/12/24 08:00 05/18/24 07:47 Fluticasone/Umeclidin/Vilanter 100-62.5-25 Mcg Ellipta INHALATION 1 puff DAILYRT SANGEETA Administration Glucagon 1 mg 05/11/24 22:22 Glucagon For Inj 1 Mg Vial IM PRN PRN Hypoglycemia Protocol Glucose 15 gm 05/11/24 22:22 Glucose Oral Gel 15 Gm Of Glucse In 37.5 Gm Tube PO PRN PRN Hypoglycemia Protocol Guaifenesin 1,200 mg 05/12/24 09:00 05/17/24 20:27 Guaifenesin 12 Hr 600 Mg Tabcr PO 1,200 mg Q12HR SANGEETA Administration Heparin Sodium (Porcine) 5,000 units 05/12/24 09:00 05/16/24 09:02 Heparin Sodium 5,000 Units/Ml Vial SUB-Q 5,000 units Q12HR SANGEETA Administration Hydralazine HCl 10 mg 05/15/24 17:22 05/16/24 00:13 Hydralazine Hcl 20 Mg/Ml Vial IV PUSH 10 mg Q6H PRN Administration Blood Pressure - High Hydrocortisone Sodium Succinate 50 mg 05/17/24 11:45 05/17/24 13:22 Hydrocortisone Sodium Succinate 100 Mg/2 Ml Vial IV PUSH Not Given Q8H SANGEETA Dextrose 1,000 mls @ 100 mls/hr 05/11/24 22:22 Dextrose 5% 1,000 Ml IVPB PRN PRN Hypoglycemia Protocol Ceftriaxone Sodium 2 gm in 100 mls @ 200 mls/hr 05/14/24 10:15 05/17/24 19:00 Rocephin 2 Gm/Ns 100 Ml IVPB Infused QAM SANGEETA Infusion Insulin Aspart 4 - 8 units 05/15/24 21:00 05/17/24 20:28 Insulin Aspart (*Bkc) 100 Units/Ml SUB-Q Not Given 0800,1200,1700,2100 [facility] Protocol Levothyroxine Sodium 75 mcg 05/12/24 06:30 05/18/24 05:38 Levothyroxine Sodium 75 Mcg Tablet PO 75 mcg DAILY@0630 SANGEETA Administration Ondansetron HCl 4 mg 05/11/24 18:35 05/17/24 00:55 Ondansetron Inj 4 Mg/2 Ml Vial IV PUSH 4 mg Q4H PRN Administration Nausea Pantoprazole Sodium 40 mg 05/16/24 21:00 05/17/24 20:28 Pantoprazole Sodium Iv 40 Mg Vial IV PUSH 40 mg Q12HR SANGEETA Administration Rosuvastatin Calcium 40 mg 05/12/24 09:00 05/17/24 10:07 Rosuvastatin 20 Mg Tablet PO 40 mg DAILY SANGEETA Administration Sodium Bicarbonate 1,300 mg 05/17/24 12:05 05/17/24 17:13 Sodium Bicarbonate Tab 650 Mg Tablet PO 1,300 mg BID SANGEETA Administration Sodium Chloride 6 ml 05/18/24 05:00 05/18/24 05:49 Sodium Chlor 3% 15 Ml Neb (Respiratory Therapy) INHALATION 05/20/24 05:01 6 ml DAILY@0500 SANGEETA Administration Sucralfate 1,000 mg 05/17/24 16:30 05/18/24 05:38 Sucralfate Susp 100 Mg/Ml 10 Ml Udc PO 1,000 mg TIDAC SANGEETA Administration Radiology Results: ITS Impressions Chest/Abdomen/Pelvis CT 05/11/24 18:29 IMPRESSION: Extensive right upper lobe, middle lobe and left lower lobe consolidating pneumonia, with mild mediastinal reactive lymph node enlargement Occasional pulmonary nodules, likely related to pulmonary granulomatous disease 29 x 31 mm left adrenal low-attenuation mass, likely due to adrenal adenoma, less likely metastasis Normal appendix Minimal sigmoid diverticulosis; no evidence of diverticulitis Moderate prostatomegaly 2. Fusiform infrarenal abdominal aortic aneurysms, measuring up to 4 cm Central venous right common femoral catheter in right common femoral vein Renal Ultrasound 05/12/24 15:15 IMPRESSION: Unremarkable renal sonogram findings. Carotid Doppler Study 05/12/24 15:34 IMPRESSION: 1. <50% stenosis in the right internal carotid artery. 2. 50-69% stenosis in the left internal carotid artery. Chest X-Ray 05/18/24 09:09 IMPRESSION: 1. Airspace opacities in right upper lobe and left lower lobe with worsening on the left, consistent with pneumonia. Labs Labs: Laboratory Results - last 24 hr 05/11/24 05/12/24 05/17/24 23:22 01:13 07:28 WBC RBC Hgb Hct MCV MCH MCHC RDW Plt Count MPV Immature Gran % (Auto) Neut % (Auto) Lymph % (Auto) [place] % (Auto) Eos % (Auto) Baso % (Auto) Lymph # (Auto) [place] # (Auto) Eos # (Auto) Baso # (Auto) Abs Immat Gran (auto) Absolute Neuts (auto) Absolute Nucleated RBC Nucleated RBC % Platelet Estimate Hypochromasia Anisocytosis Ovalocytes Schistocytes Sodium 136 L Potassium 3.3 L Chloride 106 Carbon Dioxide 14 L Anion Gap 16 H BUN 165 H D Creatinine 6.80 H Estim Creat Clear Calc 9 Estimated GFR 8 L Glucose 169 H POC Capillary Glucose Calcium 7.3 L Phosphorus 7.2 H Magnesium 2.4 H Total Bilirubin 0.6 AST 21 ALT 29 Alkaline Phosphatase 74 Total Protein 5.0 L Albumin 2.9 L Stl Occult Blood (IFOB) Ur L.pneumophila Ag Not detected Mycoplasma pneumon IgM 225 Blood Type Antibody Screen Crossmatch 05/17/24 05/17/24 05/17/24 07:57 09:26 11:22 WBC RBC Hgb Hct MCV MCH MCHC RDW Plt Count MPV Immature Gran % (Auto) Neut % (Auto) Lymph % (Auto) [place] % (Auto) Eos % (Auto) Baso % (Auto) Lymph # (Auto) [place] # (Auto) Eos # (Auto) Baso # (Auto) Abs Immat Gran (auto) Absolute Neuts (auto) Absolute Nucleated RBC Nucleated RBC % Platelet Estimate Hypochromasia Anisocytosis Ovalocytes Schistocytes Sodium Potassium Chloride Carbon Dioxide Anion Gap BUN Creatinine Estim Creat Clear Calc Estimated GFR Glucose POC Capillary Glucose 186 H Calcium Phosphorus Magnesium Total Bilirubin AST ALT Alkaline Phosphatase Total Protein Albumin Stl Occult Blood (IFOB) Positive H Ur L.pneumophila Ag Mycoplasma pneumon IgM Blood Type O Positive Antibody Screen Negative Crossmatch See Detail 05/17/24 05/17/24 05/17/24 15:28 17:48 20:24 WBC RBC Hgb 7.7 L Hct 23.3 L MCV MCH MCHC RDW Plt Count MPV Immature Gran % (Auto) Neut % (Auto) Lymph % (Auto) [place] % (Auto) Eos % (Auto) Baso % (Auto) Lymph # (Auto) [place] # (Auto) Eos # (Auto) Baso # (Auto) Abs Immat Gran (auto) Absolute Neuts (auto) Absolute Nucleated RBC Nucleated RBC % Platelet Estimate Hypochromasia Anisocytosis Ovalocytes Schistocytes Sodium Potassium Chloride Carbon Dioxide Anion Gap BUN Creatinine Estim Creat Clear Calc Estimated GFR Glucose POC Capillary Glucose 180 H 146 H Calcium Phosphorus Magnesium Total Bilirubin AST ALT Alkaline Phosphatase Total Protein Albumin Stl Occult Blood (IFOB) Ur L.pneumophila Ag Mycoplasma pneumon IgM Blood Type Antibody Screen Crossmatch 05/18/24 05/18/24 05:46 07:17 WBC 16.4 H RBC 2.76 L Hgb 7.9 L Hct 22.9 L MCV 83.0 MCH 28.6 MCHC 34.5 RDW 13.9 Plt Count 230 MPV 9.4 Immature Gran % (Auto) 7.5 H Neut % (Auto) 68.6 Lymph % (Auto) 14.1 L [place] % (Auto) 8.2 Eos % (Auto) 1.4 Baso % (Auto) 0.2 Lymph # (Auto) 2.31 [place] # (Auto) 1.3 H Eos # (Auto) 0.2 Baso # (Auto) 0.0 Abs Immat Gran (auto) 1.23 H Absolute Neuts (auto) 11.3 H Absolute Nucleated RBC 0.000 Nucleated RBC % 0.0 Platelet Estimate Adequate Hypochromasia 1+ Anisocytosis 1+ Ovalocytes 1+ Schistocytes None seen Sodium 136 L Potassium 3.1 L Chloride 108 H Carbon Dioxide 16 L Anion Gap 12 BUN 159 H Creatinine 6.60 H Estim Creat Clear Calc 9 Estimated GFR 8 L Glucose 119 H POC Capillary Glucose 133 H Calcium 7.3 L Phosphorus 6.0 H Magnesium 2.4 H Total Bilirubin 0.6 AST 22 ALT 25 Alkaline Phosphatase 73 Total Protein 6.0 L Albumin 3.0 L Stl Occult Blood (IFOB) Ur L.pneumophila Ag Mycoplasma pneumon IgM Blood Type Antibody Screen Crossmatch
[2024-05-18] MEDS: guaiFENesin 12 HR 600 MG TABCR 1200 MG PO ×2 (09:19→20:32)
[2024-05-18] MEDS: SODIUM BICARBONATE TAB 650 MG TABLET 1300 MG PO ×2 (09:20→17:25)
[2024-05-18] MEDS: carvediloL 12.5 MG TABLET PO ×2 (09:20→20:32)
[2024-05-18] MEDS: cefTRIAXone 2 GM/NS 100 ML 2 GM/100 ML BAG IVPB (09:20)
[2024-05-18] MEDS: ROSUVASTATIN 20 MG TABLET 40 MG PO (09:20)
[2024-05-18] MEDS: PANTOPRAZOLE SODIUM IV 40 MG VIAL IV PUSH ×2 (09:21→20:40)
[2024-05-18] MEDS: amLODIPine BESYLATE 10 MG TABLET PO (09:21)
[2024-05-18] MEDS: POTASSIUM CHLORIDE 20 MEQ PACKET (FOR LIQUID) PO (09:24)
--- NOTE | 2024-05-18 11:31 | WPDGIPROGNO ---
Progress Note: A&P Assessment and Plan (1) Melena: Code(s): K92.1 - Melena Status: Acute (2) Acute blood loss anemia: Code(s): D62 - Acute posthemorrhagic anemia Status: Acute (3) Anemia: Qualifiers: Anemia type: unspecified type Qualified Code(s): D64.9 - Anemia, unspecified Code(s): D64.9 - Anemia, unspecified Status: Acute Plan currently patient is hemodynamically stable continue with the PPI twice a day as well as Carafate to cover for stress ulcer will reassess tomorrow once patient breathing gets better patient will need an upper endoscopy to rule out peptic ulcer disease. Patient's Plavix has been on hold regular GI service will resume patient care on Sunday Subjective Date/time seen: 05/18/24 11:31 Interval history: patient is doing better still has some shortness of breath currently being treated for pneumonia patient also has renal failure GI has been consulted for anemia and black stool. Patient Plavix has been on hold hemoglobin reviewed which has gone up to 7.9 Review of Systems Review of Systems: shortness of breath otherwise negative Exam Const: Other: no acute distress wearing oxygen by nasal cannula Cardio: Other: bilateral coarse breath sounds air entry equal GI: Other: soft nontender bowel sounds positive Skin: Other: intact Neuro: Other: intact Objective Data Vital Signs Vital Signs: Vital Signs - 24 hr 05/17/24 12:17 05/17/24 12:17 05/17/24 13:17 Temperature 97.8 F 97.8 F 97.4 F L Pulse Rate 66 66 62 Respiratory Rate 18 18 24 H Blood Pressure 138/58 L 138/58 L 119/50 L Pulse Oximetry 95 95 90 Oxygen Delivery Oxygen Flow Rate Fraction of Inspired Oxygen 05/17/24 13:48 05/17/24 12:00 05/17/24 12:00 Temperature 97.6 F Pulse Rate 55 L 57 L Respiratory Rate 20 Blood Pressure 135/54 L Pulse Oximetry 91 95 Oxygen Delivery Nasal Cannula Oxygen Flow Rate 4 Fraction of Inspired Oxygen 05/17/24 14:00 05/17/24 16:00 05/17/24 16:00 Temperature 97.8 F Pulse Rate 67 62 61 Respiratory Rate 20 Blood Pressure 106/43 L Pulse Oximetry 98 Oxygen Delivery Oxygen Flow Rate Fraction of Inspired Oxygen 05/17/24 16:00 05/17/24 18:00 05/17/24 20:27 Temperature Pulse Rate 59 L 60 Respiratory Rate Blood Pressure Pulse Oximetry 98 Oxygen Delivery Nasal Cannula Oxygen Flow Rate 4 Fraction of Inspired Oxygen 05/17/24 20:00 05/17/24 21:22 05/17/24 21:23 Temperature 97.8 F Pulse Rate 63 62 62 Respiratory Rate 18 18 18 Blood Pressure 143/53 H Pulse Oximetry 97 96 Oxygen Delivery BiPAP Oxygen Flow Rate Fraction of Inspired Oxygen 05/17/24 21:24 05/17/24 23:58 05/18/24 02:41 Temperature 97.6 F Pulse Rate 58 L 57 L Respiratory Rate 19 24 H Blood Pressure 129/54 L Pulse Oximetry 96 100 94 Oxygen Delivery BiPAP BiPAP Oxygen Flow Rate Fraction of Inspired Oxygen 40 05/18/24 02:42 05/17/24 20:00 05/17/24 20:00 Temperature Pulse Rate 57 L 64 63 Respiratory Rate 24 H 18 Blood Pressure Pulse Oximetry 97 Oxygen Delivery Nasal Cannula Oxygen Flow Rate 4 Fraction of Inspired Oxygen 05/17/24 22:00 05/18/24 00:00 05/18/24 00:30 Temperature Pulse Rate 52 L 47 L 58 L Respiratory Rate 19 Blood Pressure Pulse Oximetry 100 Oxygen Delivery BiPAP Oxygen Flow Rate Fraction of Inspired Oxygen 40 05/18/24 02:00 05/18/24 04:00 05/18/24 04:00 Temperature Pulse Rate 60 48 L 48 L Respiratory Rate 16 Blood Pressure Pulse Oximetry 97 Oxygen Delivery BiPAP Oxygen Flow Rate Fraction of Inspired Oxygen 40 05/18/24 05:25 05/18/24 05:48 05/18/24 05:54 Temperature Pulse Rate 62 66 61 Respiratory Rate 22 H 21 H Blood Pressure Pulse Oximetry 94 Oxygen Delivery BiPAP Oxygen Flow Rate Fraction of Inspired Oxygen 05/18/24 05:10 05/18/24 07:21 05/18/24 07:27 Temperature 97.8 F 97.6 F Pulse Rate 58 L 59 L 57 L Respiratory Rate 21 H 19 18 Blood Pressure 137/57 L 125/52 L Pulse Oximetry 95 95 93 Oxygen Delivery BiPAP Oxygen Flow Rate Fraction of Inspired Oxygen 05/18/24 07:27 05/18/24 07:27 05/18/24 07:48 Temperature Pulse Rate 57 L 60 Respiratory Rate 18 20 Blood Pressure Pulse Oximetry 93 Oxygen Delivery BiPAP Oxygen Flow Rate Fraction of Inspired Oxygen 40 05/18/24 09:20 Temperature Pulse Rate 78 Respiratory Rate Blood Pressure Pulse Oximetry Oxygen Delivery Oxygen Flow Rate Fraction of Inspired Oxygen Intake/Output Intake/Output: Intake & Output 05/15/24 05/16/24 05/17/24 05/18/24 23:59 23:59 23:59 23:59 Intake Total 7445 010 7130 1000 Output Total 1750 2070 1775 950 [facility] -510 -1120 -125 50 Meds/Results Medications: Active Medications Generic Name Dose Route Start Last Admin Trade Name Freq PRN Reason Stop Dose Admin Acetaminophen 650 mg 05/11/24 18:35 05/12/24 08:08 Acetaminophen 325 Mg Tablet PO 650 mg Q4H PRN Administration Mild Pain (1-3) or Fever Acetylcysteine 200 mg 05/17/24 20:00 05/18/24 07:26 Acetylcysteine 20% Inhal Soln 800 Mg/4 Ml Vial INHALATION 200 mg Q6HRT SANGEETA Administration Albuterol/Ipratropium 3 ml 05/12/24 02:00 05/18/24 07:26 Ipratropium 0.5 Mg/Albuterol Sulfate 2.5 Mg Ampul.Neb 3 Ml INHALATION 3 ml Q6HRT SANGEETA Administration Amlodipine Besylate 10 mg 05/16/24 09:00 05/18/24 09:21 Amlodipine Besylate 10 Mg Tablet PO 10 mg DAILY SANGEETA Administration Aspirin 81 mg 05/12/24 09:00 05/16/24 09:04 Aspirin 81 Mg Enteric Tablet PO 81 mg DAILY SANGEETA Administration Carvedilol 12.5 mg 05/16/24 09:00 05/18/24 09:20 Carvedilol 12.5 Mg Tablet PO 12.5 mg Q12HR SANGEETA Administration Clopidogrel Bisulfate 75 mg 05/12/24 09:00 05/16/24 09:04 Clopidogrel Bisulfate 75 Mg Tablet PO 75 mg DAILY SANGEETA Administration Dextrose 12.5 gm 05/11/24 22:22 Dextrose 50% 25 Gm/50 Ml Syringe IV PUSH PRN PRN Hypoglycemia Protocol Epoetin Shimon-epbx 10,000 units 05/17/24 09:00 05/17/24 10:23 Epoetin Shimon-Epbx 10,000 Units/Ml Vial SUB-Q 10,000 units TUTHSA@09 SANGEETA Administration Famotidine 20 mg 05/14/24 09:00 05/16/24 09:00 Famotidine 20 Mg/2 Ml Vial IV PUSH 20 mg DAILY SANGEETA Administration Fluticasone/Umeclidinium/Vilanterol 1 puff 05/12/24 08:00 05/18/24 07:47 Fluticasone/Umeclidin/Vilanter 100-62.5-25 Mcg Ellipta INHALATION 1 puff DAILYRT SANGEETA Administration Glucagon 1 mg 05/11/24 22:22 Glucagon For Inj 1 Mg Vial IM PRN PRN Hypoglycemia Protocol Glucose 15 gm 05/11/24 22:22 Glucose Oral Gel 15 Gm Of Glucse In 37.5 Gm Tube PO PRN PRN Hypoglycemia Protocol Guaifenesin 1,200 mg 05/12/24 09:00 05/18/24 09:19 Guaifenesin 12 Hr 600 Mg Tabcr PO 1,200 mg Q12HR SANGEETA Administration Heparin Sodium (Porcine) 5,000 units 05/12/24 09:00 05/16/24 09:02 Heparin Sodium 5,000 Units/Ml Vial SUB-Q 5,000 units Q12HR SANGEETA Administration Hydralazine HCl 10 mg 05/15/24 17:22 05/16/24 00:13 Hydralazine Hcl 20 Mg/Ml Vial IV PUSH 10 mg Q6H PRN Administration Blood Pressure - High Hydrocortisone Sodium Succinate 50 mg 05/17/24 11:45 05/17/24 13:22 Hydrocortisone Sodium Succinate 100 Mg/2 Ml Vial IV PUSH Not Given Q8H SANGEETA Dextrose 1,000 mls @ 100 mls/hr 05/11/24 22:22 Dextrose 5% 1,000 Ml IVPB PRN PRN Hypoglycemia Protocol Ceftriaxone Sodium 2 gm in 100 mls @ 200 mls/hr 05/14/24 10:15 05/18/24 09:20 Rocephin 2 Gm/Ns 100 Ml IVPB 200 mls/hr QAM SANGEETA Administration Insulin Aspart 4 - 8 units 05/15/24 21:00 05/18/24 09:18 Insulin Aspart (*Bkc) 100 Units/Ml SUB-Q Not Given 0800,1200,1700,2100 [facility] Protocol Levothyroxine Sodium 75 mcg 05/12/24 06:30 05/18/24 05:38 Levothyroxine Sodium 75 Mcg Tablet PO 75 mcg DAILY@0630 SANGEETA Administration Ondansetron HCl 4 mg 05/11/24 18:35 05/17/24 00:55 Ondansetron Inj 4 Mg/2 Ml Vial IV PUSH 4 mg Q4H PRN Administration Nausea Pantoprazole Sodium 40 mg 05/16/24 21:00 05/18/24 09:21 Pantoprazole Sodium Iv 40 Mg Vial IV PUSH 40 mg Q12HR SANGEETA Administration Rosuvastatin Calcium 40 mg 05/12/24 09:00 05/18/24 09:20 Rosuvastatin 20 Mg Tablet PO 40 mg DAILY SANGEETA Administration Sodium Bicarbonate 1,300 mg 05/17/24 12:05 05/18/24 09:20 Sodium Bicarbonate Tab 650 Mg Tablet PO 1,300 mg BID SANGEETA Administration Sodium Chloride 6 ml 05/18/24 05:00 05/18/24 05:49 Sodium Chlor 3% 15 Ml Neb (Respiratory Therapy) INHALATION 05/20/24 05:01 6 ml DAILY@0500 SANGEETA Administration Sucralfate 1,000 mg 05/17/24 16:30 05/18/24 09:19 Sucralfate Susp 100 Mg/Ml 10 Ml Udc PO 1,000 mg TIDAC SANGEETA Administration Radiology Results: ITS Impressions Chest/Abdomen/Pelvis CT 05/11/24 18:29 IMPRESSION: Extensive right upper lobe, middle lobe and left lower lobe consolidating pneumonia, with mild mediastinal reactive lymph node enlargement Occasional pulmonary nodules, likely related to pulmonary granulomatous disease 29 x 31 mm left adrenal low-attenuation mass, likely due to adrenal adenoma, less likely metastasis Normal appendix Minimal sigmoid diverticulosis; no evidence of diverticulitis Moderate prostatomegaly 2. Fusiform infrarenal abdominal aortic aneurysms, measuring up to 4 cm Central venous right common femoral catheter in right common femoral vein Renal Ultrasound 05/12/24 15:15 IMPRESSION: Unremarkable renal sonogram findings. Carotid Doppler Study 05/12/24 15:34 IMPRESSION: 1. <50% stenosis in the right internal carotid artery. 2. 50-69% stenosis in the left internal carotid artery. Chest X-Ray 05/18/24 09:09 IMPRESSION: 1. Airspace opacities in right upper lobe and left lower lobe with worsening on the left, consistent with pneumonia. Labs Labs: Laboratory Results - last 24 hr 05/11/24 05/12/24 05/17/24 23:22 01:13 09:26 WBC RBC Hgb Hct MCV MCH MCHC RDW Plt Count MPV Immature Gran % (Auto) Neut % (Auto) Lymph % (Auto) [place] % (Auto) Eos % (Auto) Baso % (Auto) Lymph # (Auto) [place] # (Auto) Eos # (Auto) Baso # (Auto) Abs Immat Gran (auto) Absolute Neuts (auto) Absolute Nucleated RBC Nucleated RBC % Platelet Estimate Hypochromasia Anisocytosis Ovalocytes Schistocytes Sodium Potassium Chloride Carbon Dioxide Anion Gap BUN Creatinine Estim Creat Clear Calc Estimated GFR Glucose POC Capillary Glucose Calcium Phosphorus Magnesium Total Bilirubin AST ALT Alkaline Phosphatase Total Protein Albumin Ur L.pneumophila Ag Not detected Mycoplasma pneumon IgM 225 Crossmatch See Detail 05/17/24 05/17/24 05/17/24 11:22 15:28 17:48 WBC RBC Hgb 7.7 L Hct 23.3 L MCV MCH MCHC RDW Plt Count MPV Immature Gran % (Auto) Neut % (Auto) Lymph % (Auto) [place] % (Auto) Eos % (Auto) Baso % (Auto) Lymph # (Auto) [place] # (Auto) Eos # (Auto) Baso # (Auto) Abs Immat Gran (auto) Absolute Neuts (auto) Absolute Nucleated RBC Nucleated RBC % Platelet Estimate Hypochromasia Anisocytosis Ovalocytes Schistocytes Sodium Potassium Chloride Carbon Dioxide Anion Gap BUN Creatinine Estim Creat Clear Calc Estimated GFR Glucose POC Capillary Glucose 186 H 180 H Calcium Phosphorus Magnesium Total Bilirubin AST ALT Alkaline Phosphatase Total Protein Albumin Ur L.pneumophila Ag Mycoplasma pneumon IgM Crossmatch 05/17/24 05/18/24 05/18/24 20:24 05:46 07:17 WBC 16.4 H RBC 2.76 L Hgb 7.9 L Hct 22.9 L MCV 83.0 MCH 28.6 MCHC 34.5 RDW 13.9 Plt Count 230 MPV 9.4 Immature Gran % (Auto) 7.5 H Neut % (Auto) 68.6 Lymph % (Auto) 14.1 L [place] % (Auto) 8.2 Eos % (Auto) 1.4 Baso % (Auto) 0.2 Lymph # (Auto) 2.31 [place] # (Auto) 1.3 H Eos # (Auto) 0.2 Baso # (Auto) 0.0 Abs Immat Gran (auto) 1.23 H Absolute Neuts (auto) 11.3 H Absolute Nucleated RBC 0.000 Nucleated RBC % 0.0 Platelet Estimate Adequate Hypochromasia 1+ Anisocytosis 1+ Ovalocytes 1+ Schistocytes None seen Sodium 136 L Potassium 3.1 L Chloride 108 H Carbon Dioxide 16 L Anion Gap 12 BUN 159 H Creatinine 6.60 H Estim Creat Clear Calc 9 Estimated GFR 8 L Glucose 119 H POC Capillary Glucose 146 H 133 H Calcium 7.3 L Phosphorus 6.0 H Magnesium 2.4 H Total Bilirubin 0.6 AST 22 ALT 25 Alkaline Phosphatase 73 Total Protein 6.0 L Albumin 3.0 L Ur L.pneumophila Ag Mycoplasma pneumon IgM Crossmatch
[2024-05-18 12:26] LABS: Glucose Point of Care 134 mg/dl (65-105)
--- NOTE | 2024-05-18 13:05 | P.PNIM_ITS ---
Progress Note: A&P Assessment and Plan (1) Acute respiratory failure: Code(s): J96.00 - Acute respiratory failure, unspecified whether with hypoxia or hypercapnia Status: Acute Assessment and Plan: Patient has baseline COPD and now presented with pneumonia and hypoxic respiratory failure. Initially needed Airvo/non-rebreather mask because of hypoxia. Trial of BiPAP started in ICU. Chest x-ray and ABG reviewed Currently on oxygen via nasal cannula Continue bronchodilators antibiotics and steroid Stopped Solu-Cortef (2) Septic shock: Code(s): A41.9 - Sepsis, unspecified organism; R65.21 - Severe sepsis with septic shock Status: Acute Assessment and Plan: Septic shock secondary to pneumonia and UTI Patient has received IV fluid bolus and is now on maintenance IV fluids. Cautious IV fluids to minimize risk of volume overload Off pressors Continue Hydrocortisone for pneumonia 05/11: Blood cultures growing Streptococcus pneumonia 2/2 bottles, pansensitive 05/12: Urine culture NO growth -05/14: Discontinued vancomycin and cefepime -05/14: Started patient ceftriaxone, continue oral doxycycline - urine Legionella and pneumococcal antigen pending Lactic acid has normalized Finished course of doxycycline 05/12/2024: Echocardiogram Summary 1. Technically suboptimal study due to poor sonographic images. 2. Definity contrast administered improved wall motion interpretation. 3. Left ventricular chamber dimension is mildly enlarged. 4. Left ventricular systolic function is moderately globally reduced, estimated at 35-40%. 5. There is mild concentric increased left ventricular wall thickness. 6. The left ventricular diastolic function is grade I diastolic dysfunction. 7. Left atrial chamber dimension is mildly enlarged. 8. There is mild aortic valve sclerosis. 9. There is trace mitral valve regurgitation. (3) Multifocal pneumonia: Code(s): J18.9 - Pneumonia, unspecified organism Status: Acute Assessment and Plan: See above Repeat chest x-ray 05/17/2024 with right upper lobe collapse/consolidation. Added Mucomyst Recheck and monitor Pulmonary consultation if remains persistent (4) Acute kidney injury: Code(s): N17.9 - Acute kidney failure, unspecified Status: Acute Assessment and Plan: He presented with creatinine of 4.4. Baseline unknown as last recorded creatinine is from 2019 Creatinine continues to increase however with improved urine output now creatinine trended down. Nephrology following (5) Type 2 diabetes mellitus: Code(s): E11.9 - Type 2 diabetes mellitus without complications Status: Acute Assessment and Plan: Sliding scale insulin Continue diabetic diet and heart healthy diet (6) Hypothyroidism: Code(s): E03.9 - Hypothyroidism, unspecified Status: Acute Assessment and Plan: Elevated TSH -continue levothyroxine (7) Elevated troponin: Code(s): R79.89 - Other specified abnormal findings of blood chemistry Status: Acute Assessment and Plan: Mildly elevated troponin in the setting of septic shock and acute kidney failure likely to monitor radiated ischemia. Patient denies any chest pain. -troponins trending down -Continue aspirin Plavix and rosuvastatin -echocardiogram as above (8) Chronic obstructive pulmonary disease: Qualifiers: COPD type: emphysema Emphysema type: unspecified Qualified Code(s): J43.9 - Emphysema, unspecified Code(s): J44.9 - Chronic obstructive pulmonary disease, unspecified Status: Chronic Assessment and Plan: Continue NIPPV, steroids, bronchodilators will slowly taper off noninvasive positive pressure ventilation (9) Electrolyte abnormality: Code(s): E87.8 - Other disorders of electrolyte and fluid balance, not elsewhere classified Status: Acute Assessment and Plan: Magnesium is normalized after replacement Replace potassium as needed (10) Anemia: Qualifiers: Anemia type: unspecified type Qualified Code(s): D64.9 - Anemia, unspec ified Code(s): D64.9 - Anemia, unspecified Status: Acute Assessment and Plan: FOBT positive stool H&H dropping PPI started GI consult Hold aspirin Plavix and heparin subQ EGD contemplated when stable Plan DVT prophylaxis -subcutaneous heparin which will be held due to anemia Stress ulcer prophylaxis -Protonix Nutrition -heart healthy diet Code Status: Full code Subjective Date/time seen: 05/18/24 13:05 Interval history: No overnight events. Use BiPAP overnight. Remains on 4 L oxygen via nasal cannula. Denies any abdominal pain. Chest x-ray findings reviewed with the patient. Review of Systems Review of Systems: All systems reviewed & are unremarkable except as noted in HPI and below Exam Narrative: General: Pt is alert awake and in no significant distress Lungs/Chest: Air entry is decreased, few rales at bases. Cardiac: RRR. Normal S1 S2. No murmurs Circulation: Pedal pulses are intact and symmetrical. Abdomen: Normal bowel sounds. Soft. NT. ND. Extremities: No clubbing, cyanosis or edema. Warm : Garcia in place Neurologic: Follows commands. Moves all 4 extremities PERRL AO x3 Skin: No Rash Objective Data Vital Signs Vital Signs: Vital Signs - 24 hr 05/17/24 13:17 05/17/24 13:48 05/17/24 14:00 Temperature 97.4 F L 97.6 F Pulse Rate 62 55 L 67 Respiratory Rate 24 H 20 Blood Pressure 119/50 L 135/54 L Pulse Oximetry 90 91 Oxygen Delivery Oxygen Flow Rate Fraction of Inspired Oxygen 05/17/24 16:00 05/17/24 16:00 05/17/24 16:00 Temperature 97.8 F Pulse Rate 62 61 Respiratory Rate 20 Blood Pressure 106/43 L Pulse Oximetry 98 98 Oxygen Delivery Nasal Cannula Oxygen Flow Rate 4 Fraction of Inspired Oxygen 05/17/24 18:00 05/17/24 20:27 05/17/24 20:00 Temperature 97.8 F Pulse Rate 59 L 60 63 Respiratory Rate 18 Blood Pressure 143/53 H Pulse Oximetry 97 Oxygen Delivery Oxygen Flow Rate Fraction of Inspired Oxygen 05/17/24 21:22 05/17/24 21:23 05/17/24 21:24 Temperature Pulse Rate 62 62 Respiratory Rate 18 18 Blood Pressure Pulse Oximetry 96 96 Oxygen Delivery BiPAP BiPAP Oxygen Flow Rate Fraction of Inspired Oxygen 40 05/17/24 23:58 05/18/24 02:41 05/18/24 02:42 Temperature 97.6 F Pulse Rate 58 L 57 L 57 L Respiratory Rate 19 24 H 24 H Blood Pressure 129/54 L Pulse Oximetry 100 94 Oxygen Delivery BiPAP Oxygen Flow Rate Fraction of Inspired Oxygen 05/17/24 20:00 05/17/24 20:00 05/17/24 22:00 Temperature Pulse Rate 64 63 52 L Respiratory Rate 18 Blood Pressure Pulse Oximetry 97 Oxygen Delivery Nasal Cannula Oxygen Flow Rate 4 Fraction of Inspired Oxygen 05/18/24 00:00 05/18/24 00:30 05/18/24 02:00 Temperature Pulse Rate 47 L 58 L 60 Respiratory Rate 19 Blood Pressure Pulse Oximetry 100 Oxygen Delivery BiPAP Oxygen Flow Rate Fraction of Inspired Oxygen 40 05/18/24 04:00 05/18/24 04:00 05/18/24 05:25 Temperature Pulse Rate 48 L 48 L 62 Respiratory Rate 16 Blood Pressure Pulse Oximetry 97 Oxygen Delivery BiPAP Oxygen Flow Rate Fraction of Inspired Oxygen 40 05/18/24 05:48 05/18/24 05:54 05/18/24 05:10 Temperature 97.8 F Pulse Rate 66 61 58 L Respiratory Rate 22 H 21 H 21 H Blood Pressure 137/57 L Pulse Oximetry 94 95 Oxygen Delivery BiPAP Oxygen Flow Rate Fraction of Inspired Oxygen 05/18/24 07:21 05/18/24 07:27 05/18/24 07:27 Temperature 97.6 F Pulse Rate 59 L 57 L Respiratory Rate 19 18 Blood Pressure 125/52 L Pulse Oximetry 95 93 93 Oxygen Delivery BiPAP BiPAP Oxygen Flow Rate Fraction of Inspired Oxygen 40 05/18/24 07:27 05/18/24 07:48 05/18/24 09:20 Temperature Pulse Rate 57 L 60 78 Respiratory Rate 18 20 Blood Pressure Pulse Oximetry Oxygen Delivery Oxygen Flow Rate Fraction of Inspired Oxygen 05/18/24 08:00 05/18/24 10:00 05/18/24 11:30 Temperature 97.4 F L Pulse Rate 58 L 61 64 Respiratory Rate 20 Blood Pressure 134/51 L Pulse Oximetry 91 Oxygen Delivery Oxygen Flow Rate Fraction of Inspired Oxygen Intake/Output Intake/Output: Intake & Output 05/15/24 05/16/24 05/17/24 05/18/24 23:59 23:59 23:59 23:59 Intake Total 5980 624 4920 1000 Output Total 1750 2070 1775 950 [facility] -510 -1120 -125 50 Meds/Results Medications: Active Medications Generic Name Dose Route Start Last Admin Trade Name Freq PRN Reason Stop Dose Admin Acetaminophen 650 mg 05/11/24 18:35 05/12/24 08:08 Acetaminophen 325 Mg Tablet PO 650 mg Q4H PRN Administration Mild Pain (1-3) or Fever Acetylcysteine 200 mg 05/17/24 20:00 05/18/24 07:26 Acetylcysteine 20% Inhal Soln 800 Mg/4 Ml Vial INHALATION 200 mg Q6HRT SANGEETA Administration Albuterol/Ipratropium 3 ml 05/12/24 02:00 05/18/24 07:26 Ipratropium 0.5 Mg/Albuterol Sulfate 2.5 Mg Ampul.Neb 3 Ml INHALATION 3 ml Q6HRT SANGEETA Administration Amlodipine Besylate 10 mg 05/16/24 09:00 05/18/24 09:21 Amlodipine Besylate 10 Mg Tablet PO 10 mg DAILY SANGEETA Administration Aspirin 81 mg 05/12/24 09:00 05/16/24 09:04 Aspirin 81 Mg Enteric Tablet PO 81 mg DAILY SANGEETA Administration Carvedilol 12.5 mg 05/16/24 09:00 05/18/24 09:20 Carvedilol 12.5 Mg Tablet PO 12.5 mg Q12HR SANGEETA Administration Clopidogrel Bisulfate 75 mg 05/12/24 09:00 05/16/24 09:04 Clopidogrel Bisulfate 75 Mg Tablet PO 75 mg DAILY SANGEETA Administration Dextrose 12.5 gm 05/11/24 22:22 Dextrose 50% 25 Gm/50 Ml Syringe IV PUSH PRN PRN Hypoglycemia Protocol Epoetin Shimon-epbx 10,000 units 05/17/24 09:00 05/17/24 10:23 Epoetin Shimon-Epbx 10,000 Units/Ml Vial SUB-Q 10,000 units TUTHSA@09 SANGEETA Administration Famotidine 20 mg 05/14/24 09:00 05/16/24 09:00 Famotidine 20 Mg/2 Ml Vial IV PUSH 20 mg DAILY SANGEETA Administration Fluticasone/Umeclidinium/Vilanterol 1 puff 05/12/24 08:00 05/18/24 07:47 Fluticasone/Umeclidin/Vilanter 100-62.5-25 Mcg Ellipta INHALATION 1 puff DAILYRT SANGEETA Administration Glucagon 1 mg 05/11/24 22:22 Glucagon For Inj 1 Mg Vial IM PRN PRN Hypoglycemia Protocol Glucose 15 gm 05/11/24 22:22 Glucose Oral Gel 15 Gm Of Glucse In 37.5 Gm Tube PO PRN PRN Hypoglycemia Protocol Guaifenesin 1,200 mg 05/12/24 09:00 05/18/24 09:19 Guaifenesin 12 Hr 600 Mg Tabcr PO 1,200 mg Q12HR SANGEETA Administration Heparin Sodium (Porcine) 5,000 units 05/12/24 09:00 05/16/24 09:02 Heparin Sodium 5,000 Units/Ml Vial SUB-Q 5,000 units Q12HR SANGEETA Administration Hydralazine HCl 10 mg 05/15/24 17:22 05/16/24 00:13 Hydralazine Hcl 20 Mg/Ml Vial IV PUSH 10 mg Q6H PRN Administration Blood Pressure - High Hydrocortisone Sodium Succinate 50 mg 05/17/24 11:45 05/17/24 13:22 Hydrocortisone Sodium Succinate 100 Mg/2 Ml Vial IV PUSH Not Given Q8H SANGEETA Dextrose 1,000 mls @ 100 mls/hr 05/11/24 22:22 Dextrose 5% 1,000 Ml IVPB PRN PRN Hypoglycemia Protocol Ceftriaxone Sodium 2 gm in 100 mls @ 200 mls/hr 05/14/24 10:15 05/18/24 09:20 Rocephin 2 Gm/Ns 100 Ml IVPB 200 mls/hr QAM SANGEETA Administration Insulin Aspart 4 - 8 units 05/15/24 21:00 05/18/24 12:04 Insulin Aspart (*Bkc) 100 Units/Ml SUB-Q Not Given 0800,1200,1700,2100 [facility] Protocol Levothyroxine Sodium 75 mcg 05/12/24 06:30 05/18/24 05:38 Levothyroxine Sodium 75 Mcg Tablet PO 75 mcg DAILY@0630 SANGEETA Administration Ondansetron HCl 4 mg 05/11/24 18:35 05/17/24 00:55 Ondansetron Inj 4 Mg/2 Ml Vial IV PUSH 4 mg Q4H PRN Administration Nausea Pantoprazole Sodium 40 mg 05/16/24 21:00 05/18/24 09:21 Pantoprazole Sodium Iv 40 Mg Vial IV PUSH 40 mg Q12HR SANGEETA Administration Rosuvastatin Calcium 40 mg 05/12/24 09:00 05/18/24 09:20 Rosuvastatin 20 Mg Tablet PO 40 mg DAILY SANGEETA Administration Sodium Bicarbonate 1,300 mg 05/17/24 12:05 05/18/24 09:20 Sodium Bicarbonate Tab 650 Mg Tablet PO 1,300 mg BID SANGEETA Administration Sodium Chloride 6 ml 05/18/24 05:00 05/18/24 05:49 Sodium Chlor 3% 15 Ml Neb (Respiratory Therapy) INHALATION 05/20/24 05:01 6 ml DAILY@0500 SANGEETA Administration Sucralfate 1,000 mg 05/17/24 16:30 05/18/24 09:19 Sucralfate Susp 100 Mg/Ml 10 Ml Udc PO 1,000 mg TIDAC SANGEETA Administration Radiology Results: ITS Impressions Chest/Abdomen/Pelvis CT 05/11/24 18:29 IMPRESSION: Extensive right upper lobe, middle lobe and left lower lobe consolidating pneumonia, with mild mediastinal reactive lymph node enlargement Occasional pulmonary nodules, likely related to pulmonary granulomatous disease 29 x 31 mm left adrenal low-attenuation mass, likely due to adrenal adenoma, less likely metastasis Normal appendix Minimal sigmoid diverticulosis; no evidence of diverticulitis Moderate prostatomegaly 2. Fusiform infrarenal abdominal aortic aneurysms, measuring up to 4 cm Central venous right common femoral catheter in right common femoral vein Renal Ultrasound 05/12/24 15:15 IMPRESSION: Unremarkable renal sonogram findings. Carotid Doppler Study 05/12/24 15:34 IMPRESSION: 1. <50% stenosis in the right internal carotid artery. 2. 50-69% stenosis in the left internal carotid artery. Chest X-Ray 05/18/24 09:09 IMPRESSION: 1. Airspace opacities in right upper lobe and left lower lobe with worsening on the left, consistent with pneumonia. Labs Labs: Laboratory Results - last 24 hr 05/11/24 05/12/24 05/17/24 23:22 01:13 09:26 WBC RBC Hgb Hct MCV MCH MCHC RDW Plt Count MPV Immature Gran % (Auto) Neut % (Auto) Lymph % (Auto) [place] % (Auto) Eos % (Auto) Baso % (Auto) Lymph # (Auto) [place] # (Auto) Eos # (Auto) Baso # (Auto) Abs Immat Gran (auto) Absolute Neuts (auto) Absolute Nucleated RBC Nucleated RBC % Platelet Estimate Hypochromasia Anisocytosis Ovalocytes Schistocytes Sodium Potassium Chloride Carbon Dioxide Anion Gap BUN Creatinine Estim Creat Clear Calc Estimated GFR Glucose POC Capillary Glucose Calcium Phosphorus Magnesium Total Bilirubin AST ALT Alkaline Phosphatase Total Protein Albumin Ur L.pneumophila Ag Not detected Mycoplasma pneumon IgM 225 Crossmatch See Detail 05/17/24 05/17/24 05/17/24 15:28 17:48 20:24 WBC RBC Hgb 7.7 L Hct 23.3 L MCV MCH MCHC RDW Plt Count MPV Immature Gran % (Auto) Neut % (Auto) Lymph % (Auto) [place] % (Auto) Eos % (Auto) Baso % (Auto) Lymph # (Auto) [place] # (Auto) Eos # (Auto) Baso # (Auto) Abs Immat Gran (auto) Absolute Neuts (auto) Absolute Nucleated RBC Nucleated RBC % Platelet Estimate Hypochromasia Anisocytosis Ovalocytes Schistocytes Sodium Potassium Chloride Carbon Dioxide Anion Gap BUN Creatinine Estim Creat Clear Calc Estimated GFR Glucose POC Capillary Glucose 180 H 146 H Calcium Phosphorus Magnesium Total Bilirubin AST ALT Alkaline Phosphatase Total Protein Albumin Ur L.pneumophila Ag Mycoplasma pneumon IgM Crossmatch 05/18/24 05/18/24 05/18/24 05:46 07:17 11:25 WBC 16.4 H RBC 2.76 L Hgb 7.9 L Hct 22.9 L MCV 83.0 MCH 28.6 MCHC 34.5 RDW 13.9 Plt Count 230 MPV 9.4 Immature Gran % (Auto) 7.5 H Neut % (Auto) 68.6 Lymph % (Auto) 14.1 L [place] % (Auto) 8.2 Eos % (Auto) 1.4 Baso % (Auto) 0.2 Lymph # (Auto) 2.31 [place] # (Auto) 1.3 H Eos # (Auto) 0.2 Baso # (Auto) 0.0 Abs Immat Gran (auto) 1.23 H Absolute Neuts (auto) 11.3 H Absolute Nucleated RBC 0.000 Nucleated RBC % 0.0 Platelet Estimate Adequate Hypochromasia 1+ Anisocytosis 1+ Ovalocytes 1+ Schistocytes None seen Sodium 136 L Potassium 3.1 L Chloride 108 H Carbon Dioxide 16 L Anion Gap 12 BUN 159 H Creatinine 6.60 H Estim Creat Clear Calc 9 Estimated GFR 8 L Glucose 119 H POC Capillary Glucose 133 H 134 H Calcium 7.3 L Phosphorus 6.0 H Magnesium 2.4 H Total Bilirubin 0.6 AST 22 ALT 25 Alkaline Phosphatase 73 Total Protein 6.0 L Albumin 3.0 L Ur L.pneumophila Ag Mycoplasma pneumon IgM Crossmatch
[2024-05-18 16:29] LABS: Glucose Point of Care 131 mg/dl (65-105)
--- NOTE | 2024-05-18 19:19 | PC.NURSE ---
Call received from Citlallidorene Morrissey, patient daughter, requesting transfer to [place]. Citlalli reports that this is the 3rd consecutive day that a transfer has been requested of the provider. I have reached out to Dr. Bearden who confirmed that he will start the transfer process in the morning. I relayed this information to Citlalli and provided her with the patient advocate number.
[2024-05-18 20:30] LABS: Glucose Point of Care 165 mg/dl (65-105)
[2024-05-19] VITALS (24 sets, daily range): BP systolic 113–151; BP diastolic 42–61; PULSE 52–80; RESP 18–32; TEMP 36.1–36.6; O2SAT 93–100; BMI 27.2; BMI 27.4
[2024-05-19] MEDS: ACETYLCYSTEINE 20% INHAL SOLN 800 MG/4 ML VIAL 200 MG INHALATION ×4 (02:30→20:33)
[2024-05-19] MEDS: IPRATROPIUM 0.5 MG/ALBUTEROL SULFATE 2.5 MG AMPUL.NEB 3 ML INHALATION ×4 (02:30→20:33)
[2024-05-19] MEDS: SODIUM CHLOR 3% 15 ML NEB (RESPIRATORY THERAPY) 6 ML INHALATION (05:19)
[2024-05-19 05:20] LABS: Basophils Percent Auto 0.2 % (0.2-1.2); Eosinophils Absolute Auto 0.3 K/mm3 (0-0.3); Eosinophils Percent Auto 1.8 % (0-4.4); Hemoglobin 7.8 g/dL (14.0-18.0); Immature Granulocyte Absolute 1.48 K/mm3 (0.00-0.031); Immature Granulocyte Percent A 8.2 % (0-0.5); Lymphocytes Absolute Auto 1.42 K/mm3 (0.9-3.2); Lymphocytes Percent Auto 7.9 % (18.3-44.2); Mean Corpuscular HGB Conc 33.9 g/dl (32-36); Mean Corpuscular Hemoglobin 28.5 pg (26-34); Mean Corpuscular Volume 83.9 fl (80-100); Mean Platelet Volume 9.8 fl (7.4-10.4); Monocytes Absolute Auto 1.2 K/mm3 (0.1-0.6); Monocytes Percent Auto 6.4 % (2.6-8.5); Neutrophils Absolute Auto 13.6 K/mm3 (1.3-6.7); Neutrophils Percent Auto 75.5 % (45.5-73.1); Nucleated Red Blood Cells Perc 0.1 % (0.0-0.2); Platelet Count Result 270 k/mm3 (150-375); Red Blood Count 2.74 M/mm3 (4.6-6.20); Red Cell Distribution Width 13.9 % (11.5-14.5)
[2024-05-19] MEDS: SUCRALFATE SUSP 100 MG/ML 10 ML UDC 1000 MG PO ×3 (05:31→16:52)
[2024-05-19] MEDS: LEVOTHYROXINE SODIUM 75 MCG TABLET PO (05:31)
[2024-05-19 05:32] LABS: Alanine Aminotransferase 32 U/L (6-50); Albumin Level 3.1 g/dL (3.5-5.1); Alkaline Phosphatase 85 U/L (38-126); Anion Gap 13 mmol/L (4-12); Aspartate Amino Transferase 31 U/L (17-59); Bilirubin,Total 0.6 mg/dL (0.2-1.3); Calcium 7.4 mg/dL (8.4-10.2); Carbon Dioxide 17 mmol/L (22-30); Chloride 110 mmol/L (98-107); Estimated CRCL calculation 10 ml/min; Estimated Glomerular Filt Rate 10; Glucose 120 mg/dL (65-110); Magnesium 2.3 mg/dL (1.6-2.3); Phosphorus 6.2 mg/dL (2.5-4.5); Potassium 2.9 mmol/L (3.4-5.0); Sodium 140 mmol/L (137-145)
[2024-05-19 05:41] LABS: Platelet Estimate Adequate (Adequate)
[2024-05-19 05:44] LABS: Anisocytosis 1+; Hypochromasia 1+; Ovalocytes 1+; Schistocytes None Seen
[2024-05-19 05:55] LABS: Blood Urea Nitrogen 143 mg/dL (9-20)
[2024-05-19] MEDS: FLUTICASONE/UMECLIDIN/VILANTER 100-62.5-25 MCG ELLIPTA 1 PUFF INHALATION (08:00)
[2024-05-19 08:10] LABS: Glucose Point of Care 122 mg/dl (65-105)
[2024-05-19] MEDS: amLODIPine BESYLATE 10 MG TABLET PO (08:33)
[2024-05-19] MEDS: SODIUM BICARBONATE TAB 650 MG TABLET 1300 MG PO ×2 (08:33→16:52)
[2024-05-19] MEDS: ROSUVASTATIN 20 MG TABLET 40 MG PO (08:33)
[2024-05-19] MEDS: carvediloL 12.5 MG TABLET PO ×2 (08:33→20:16)
[2024-05-19] MEDS: guaiFENesin 12 HR 600 MG TABCR 1200 MG PO ×2 (08:33→20:16)
[2024-05-19] MEDS: cefTRIAXone 2 GM/NS 100 ML 2 GM/100 ML BAG IVPB (08:34)
[2024-05-19] MEDS: PANTOPRAZOLE SODIUM IV 40 MG VIAL IV PUSH ×2 (08:34→20:17)
[2024-05-19] MEDS: POTASSIUM CHLORIDE 20 MEQ ER TABLET 40 MEQ PO (08:44)
--- NOTE | 2024-05-19 09:39 | P.PNNP_ITS ---
Progress Note: A&P Assessment and Plan (1) Acute kidney injury: Code(s): N17.9 - Acute kidney failure, unspecified Status: Acute Assessment and Plan: * as noted on admission with a creatinine of 4.4mg/dl * unfortunately, only recent labs to compare to are from 2019 (see #2) * evaluation to date noted: * admission CT scan without obstruction * urine electrolytes prerenal * urine eosinophils negative * UA with blood and moderate proteinuria * CPK mildly elevated (probably not enough to affect kidney function) * suspect insult due several issues: * hemodynamic instability/shock * sepsis/infection (bacteremia) * prerenal factors * diuretic therapy [employer] * profound hypoxia * creatinine and BUN slowly improving with reasonable urine output * continue to follow repeat labs and UOP (2) Stage 3a chronic kidney disease: Code(s): N18.31 - Chronic kidney disease, stage 3a Status: Chronic Assessment and Plan: * last creatinine noted at 1.4mg/dl (although this was from 2019) * presumably due to HTN, vascular disease (LE vascular disease, carotid stenosis, AAA, hyperlipidemia), diabetes, COPD/CJ and age-related change * cannot discount an element of CKD progression. (3) Septic shock: Code(s): A41.9 - Sepsis, unspecified organism; R65.21 - Severe sepsis with septic shock Status: Acute Assessment and Plan: * improving * thought to be secondary to pneumonia and possibly UTI * s/p aggressive IVF resuscitation * off vasopressor therapy at this time * follow culture data - 05/11 blood cultures with Streptococcus pneumoniae * urine culture negative * repeat blood cultures are negative * on antibiotics (4) Acute respiratory failure: Code(s): J96.00 - Acute respiratory failure, unspecified whether with hypoxia or hypercapnia Status: Acute Assessment and Plan: * due to severe/significant pneumonia as noted by admission imaging * no respiratory distress but noted profound hypoxia on admission * complicated by known history of COPD * off BiPAP except for sleeping and is on nasal cannula at 4 L per minute during the day * continue bronchodilators and antibiotic therapy * Echo results noted * follow respiratory status (5) Systolic CHF: Code(s): I50.20 - Unspecified systolic (congestive) heart failure Status: Acute Assessment and Plan: * acute versus chronic? * Echo results noted: * left ventricular systolic function is moderately globally reduced - estimated at 35-40% * left ventricular diastolic function is grade I diastolic dysfunction * mild aortic valve sclerosis * trace mitral valve regurgitation * volume status appears stable * Cardiology following (6) Multifocal pneumonia: Code(s): J18.9 - Pneumonia, unspecified organism Status: Acute Assessment and Plan: * as noted by admission imaging * continue respiratory support * culture data noted * on antibiotics (7) Anemia: Qualifiers: Anemia type: unspecified type Qualified Code(s): D64.9 - Anemia, unspecified Code(s): D64.9 - Anemia, unspecified Status: Acute Assessment and Plan: * due to LEIA, CKD, and acute illness * HOWEVER, he noted black stools which are guaiac positive * PRBC transfusion per protocol * on PPI * GI following * possible EGD soon? * plavix on hold * on Retacrit while inpatient * follow trend of H/H (8) Chronic obstructive pulmonary disease: Qualifiers: COPD type: emphysema Emphysema type: unspecified Qualified Code(s): J43.9 - Emphysema, unspecified Code(s): J44.9 - Chronic obstructive pulmonary disease, unspecified Status: Chronic Assessment and Plan: * known history * see #4 (9) Type 2 diabetes mellitus: Code(s): E11.9 - Type 2 diabetes mellitus without complications Status: Acute Assessment and Plan: * follow accu-cheks * glycemic control per hospitalists Will continue to follow. Subjective Date/time seen: 05/19/24 09:39 Interval history: Follow-up for acute kidney injury/acute renal failure on chronic kidney disease. Chart reviewed since last seen -- renal function/creatinine along with BUN are slowly improving in association with good/reasonable urine output; low potassium noted with replacement ordered; sitting up in chair at the time of my visit with supplemental oxygen in place; reports not feeling well but unable to voice specific complaint. Exam Narrative: General: elderly but WD/WN male in NAD Heart: normal S1 and S2; no rub Lungs: coarse breath sound but no wheezes Abdomen: soft, nontender, nondistended, positive bowel sounds Extremities: no cyanosis, clubing or edema Skin: warm and dry Objective Data Vital Signs Vital Signs: Vital Signs Temp Pulse Resp BP Pulse Ox O2 Del Method O2 Flow Rate 05/19/24 08:33 70 05/19/24 08:00 97.6 F 65 20 144/55 H 100 05/19/24 08:12 80 20 05/19/24 08:00 64 20 05/19/24 08:00 95 Nasal Cannula 6 05/19/24 07:25 97.5 F L 66 21 H 151/61 H 96 05/19/24 04:00 97.4 F L 68 22 H 149/57 H 97 05/19/24 06:00 61 05/19/24 05:19 63 05/19/24 04:00 65 05/19/24 04:00 67 22 H 100 BiPAP 05/19/24 02:00 54 L 05/19/24 02:10 62 20 100 BiPAP 05/19/24 02:42 67 22 H 05/19/24 02:30 62 20 05/19/24 00:00 97.0 F L 60 22 H 126/52 L 95 05/19/24 00:00 52 L 05/19/24 00:00 59 L 21 H 93 BiPAP 05/18/24 22:31 59 L 05/18/24 21:20 57 L 21 H 05/18/24 21:20 61 23 H 93 BiPAP 05/18/24 20:00 72 05/18/24 20:00 65 22 H 92 Nasal Cannula 6 05/18/24 21:13 65 92 Nasal Cannula 6 05/18/24 21:08 68 22 H 05/18/24 20:32 71 05/18/24 20:01 97.9 F 67 22 H 130/54 L 94 05/18/24 16:00 70 05/18/24 15:53 97.4 F L 69 24 H 137/55 L 91 05/18/24 14:00 70 05/18/24 13:41 63 24 H 05/18/24 13:27 58 L 23 H 05/18/24 13:27 58 L 23 H 94 BiPAP 05/18/24 12:00 59 L 05/18/24 11:30 97.4 F L 64 20 134/51 L 91 Intake/Output Intake/Output: Intake & Output 05/16/24 05/17/24 05/18/24 05/19/24 23:59 23:59 23:59 23:59 Intake Total 950 1650 1100 360 Output Total 6590 4466 7471 850 Balance -1120 -125 -1375 -490 Meds/Results Medications: Active Medications Generic Name Dose Route Start Last Admin Trade Name Freq PRN Reason Stop Dose Admin Acetaminophen 650 mg 05/11/24 18:35 05/12/24 08:08 Acetaminophen 325 Mg Tablet PO 650 mg Q4H PRN Administration Mild Pain (1-3) or Fever Acetylcysteine 200 mg 05/17/24 20:00 05/19/24 08:00 Acetylcysteine 20% Inhal Soln 800 Mg/4 Ml Vial INHALATION 200 mg Q6HRT SANGEETA Administration Albuterol/Ipratropium 3 ml 05/12/24 02:00 05/19/24 07:58 Ipratropium 0.5 Mg/Albuterol Sulfate 2.5 Mg Ampul.Neb 3 Ml INHALATION 3 ml Q6HRT SANGEETA Administration Amlodipine Besylate 10 mg 05/16/24 09:00 05/19/24 08:33 Amlodipine Besylate 10 Mg Tablet PO 10 mg DAILY SANGEETA Administration Aspirin 81 mg 05/12/24 09:00 05/16/24 09:04 Aspirin 81 Mg Enteric Tablet PO 81 mg DAILY SANGEETA Administration Carvedilol 12.5 mg 05/16/24 09:00 05/19/24 08:33 Carvedilol 12.5 Mg Tablet PO 12.5 mg Q12HR SANGEETA Administration Clopidogrel Bisulfate 75 mg 05/12/24 09:00 05/16/24 09:04 Clopidogrel Bisulfate 75 Mg Tablet PO 75 mg DAILY SANGEETA Administration Dextrose 12.5 gm 05/11/24 22:22 Dextrose 50% 25 Gm/50 Ml Syringe IV PUSH PRN PRN Hypoglycemia Protocol Epoetin Shimon-epbx 10,000 units 05/17/24 09:00 05/17/24 10:23 Epoetin Shimon-Epbx 10,000 Units/Ml Vial SUB-Q 10,000 units TUTHSA@09 SANGEETA Administration Famotidine 20 mg 05/14/24 09:00 05/16/24 09:00 Famotidine 20 Mg/2 Ml Vial IV PUSH 20 mg DAILY SANGEETA Administration Fluticasone/Umeclidinium/Vilanterol 1 puff 05/12/24 08:00 05/19/24 08:00 Fluticasone/Umeclidin/Vilanter 100-62.5-25 Mcg Ellipta INHALATION 1 puff DAILYRT SANGEETA Administration Glucagon 1 mg 05/11/24 22:22 Glucagon For Inj 1 Mg Vial IM PRN PRN Hypoglycemia Protocol Glucose 15 gm 05/11/24 22:22 Glucose Oral Gel 15 Gm Of Glucse In 37.5 Gm Tube PO PRN PRN Hypoglycemia Protocol Guaifenesin 1,200 mg 05/12/24 09:00 05/19/24 08:33 Guaifenesin 12 Hr 600 Mg Tabcr PO 1,200 mg Q12HR SANGEETA Administration Heparin Sodium (Porcine) 5,000 units 05/12/24 09:00 05/16/24 09:02 Heparin Sodium 5,000 Units/Ml Vial SUB-Q 5,000 units Q12HR SANGEETA Administration Hydralazine HCl 10 mg 05/15/24 17:22 05/16/24 00:13 Hydralazine Hcl 20 Mg/Ml Vial IV PUSH 10 mg Q6H PRN Administration Blood Pressure - High Hydrocortisone Sodium Succinate 50 mg 05/17/24 11:45 05/17/24 13:22 Hydrocortisone Sodium Succinate 100 Mg/2 Ml Vial IV PUSH Not Given Q8H SANGEETA Dextrose 1,000 mls @ 100 mls/hr 05/11/24 22:22 Dextrose 5% 1,000 Ml IVPB PRN PRN Hypoglycemia Protocol Ceftriaxone Sodium 2 gm in 100 mls @ 200 mls/hr 05/14/24 10:15 05/19/24 08:34 Rocephin 2 Gm/Ns 100 Ml IVPB 200 mls/hr QAM SANGEETA Administration Insulin Aspart 4 - 8 units 05/15/24 21:00 05/19/24 08:34 Insulin Aspart (*Bkc) 100 Units/Ml SUB-Q Not Given 0800,1200,1700,2100 [facility] Protocol Levothyroxine Sodium 75 mcg 05/12/24 06:30 05/19/24 05:31 Levothyroxine Sodium 75 Mcg Tablet PO 75 mcg DAILY@0630 SANGEETA Administration Ondansetron HCl 4 mg 05/11/24 18:35 05/17/24 00:55 Ondansetron Inj 4 Mg/2 Ml Vial IV PUSH 4 mg Q4H PRN Administration Nausea Pantoprazole Sodium 40 mg 05/16/24 21:00 05/19/24 08:34 Pantoprazole Sodium Iv 40 Mg Vial IV PUSH 40 mg Q12HR SANGEETA Administration Rosuvastatin Calcium 40 mg 05/12/24 09:00 05/19/24 08:33 Rosuvastatin 20 Mg Tablet PO 40 mg DAILY SANGEETA Administration Sodium Bicarbonate 1,300 mg 05/17/24 12:05 05/19/24 08:33 Sodium Bicarbonate Tab 650 Mg Tablet PO 1,300 mg BID SANGEETA Administration Sodium Chloride 6 ml 05/18/24 05:00 05/19/24 05:19 Sodium Chlor 3% 15 Ml Neb (Respiratory Therapy) INHALATION 05/20/24 05:01 6 ml DAILY@0500 SANGEETA Administration Sucralfate 1,000 mg 05/17/24 16:30 05/19/24 05:31 Sucralfate Susp 100 Mg/Ml 10 Ml Udc PO 1,000 mg TIDAC SANGEETA Administration Radiology Results: ITS Impressions Chest/Abdomen/Pelvis CT 05/11/24 18:29 IMPRESSION: Extensive right upper lobe, middle lobe and left lower lobe consolidating pneumonia, with mild mediastinal reactive lymph node enlargement Occasional pulmonary nodules, likely related to pulmonary granulomatous disease 29 x 31 mm left adrenal low-attenuation mass, likely due to adrenal adenoma, less likely metastasis Normal appendix Minimal sigmoid diverticulosis; no evidence of diverticulitis Moderate prostatomegaly 2. Fusiform infrarenal abdominal aortic aneurysms, measuring up to 4 cm Central venous right common femoral catheter in right common femoral vein Renal Ultrasound 05/12/24 15:15 IMPRESSION: Unremarkable renal sonogram findings. Carotid Doppler Study 05/12/24 15:34 IMPRESSION: 1. <50% stenosis in the right internal carotid artery. 2. 50-69% stenosis in the left internal carotid artery. Chest X-Ray 05/18/24 09:09 IMPRESSION: 1. Airspace opacities in right upper lobe and left lower lobe with worsening on the left, consistent with pneumonia. Labs Labs: Laboratory Tests 05/19/24 03:58 05/19/24 03:58 Calcium 7.4 L Phosphorus 6.2 H Magnesium 2.3 Total Bilirubin 0.6 AST 31 ALT 32 Alkaline Phosphatase 85 Total Protein 6.0 L Albumin 3.1 L Microbiology 05/13/24 10:30 Blood Blood Culture - Final 05/13/24 10:21 Blood Blood Culture - Final
[2024-05-19] MEDS: INSULIN ASPART (*BKC) 100 UNITS/ML SUB-Q ×2 (12:10→16:53)
[2024-05-19 12:30] LABS: Glucose Point of Care 267 mg/dl (65-105)
--- NOTE | 2024-05-19 13:29 | PM.IMPN ---
Progress Note: A&P Assessment and Plan (1) Acute respiratory failure: Code(s): J96.00 - Acute respiratory failure, unspecified whether with hypoxia or hypercapnia Status: Acute Assessment and Plan: Patient has baseline COPD and now presented with pneumonia and hypoxic respiratory failure. Initially needed Airvo/non-rebreather mask because of hypoxia. Trial of BiPAP started in ICU. Chest x-ray and ABG reviewed Currently on oxygen via nasal cannula Continue bronchodilators antibiotics and steroid Stopped Solu-Cortef will consult pulmonary team (2) Septic shock: Code(s): A41.9 - Sepsis, unspecified organism; R65.21 - Severe sepsis with septic shock Status: Acute Assessment and Plan: Septic shock secondary to pneumonia and UTI Patient has received IV fluid bolus and is now on maintenance IV fluids. Cautious IV fluids to minimize risk of volume overload Off pressors Continue Hydrocortisone for pneumonia 05/11: Blood cultures growing Streptococcus pneumonia 2/2 bottles, pansensitive 05/12: Urine culture NO growth -05/14: Discontinued vancomycin and cefepime -05/14: Started patient ceftriaxone, continue oral doxycycline - urine Legionella and pneumococcal antigen pending Lactic acid has normalized Finished course of doxycycline. continue ceftraixone. discussed with ID pharmacist regarding antibiotics 05/12/2024: Echocardiogram Summary 1. Technically suboptimal study due to poor sonographic images. 2. Definity contrast administered improved wall motion interpretation. 3. Left ventricular chamber dimension is mildly enlarged. 4. Left ventricular systolic function is moderately globally reduced, estimated at 35-40%. 5. There is mild concentric increased left ventricular wall thickness. 6. The left ventricular diastolic function is grade I diastolic dysfunction. 7. Left atrial chamber dimension is mildly enlarged. 8. There is mild aortic valve sclerosis. 9. There is trace mitral valve regurgitation. (3) Multifocal pneumonia: Code(s): J18.9 - Pneumonia, unspecified organism Status: Acute Assessment and Plan: See above Repeat chest x-ray 05/17/2024 with right upper lobe collapse/consolidation. Added Mucomyst Recheck and monitor Pulmonary consultation (4) Acute kidney injury: Code(s): N17.9 - Acute kidney failure, unspecified Status: Acute Assessment and Plan: He presented with creatinine of 4.4. Baseline unknown as last recorded creatinine is from 2019 Creatinine continues to increase however with improved urine output now creatinine trended down. Nephrology following (5) Type 2 diabetes mellitus: Code(s): E11.9 - Type 2 diabetes mellitus without complications Status: Acute Assessment and Plan: Sliding scale insulin Continue diabetic diet and heart healthy diet (6) Hypothyroidism: Code(s): E03.9 - Hypothyroidism, unspecified Status: Acute Assessment and Plan: Elevated TSH -continue levothyroxine (7) Elevated troponin: Code(s): R79.89 - Other specified abnormal findings of blood chemistry Status: Acute Assessment and Plan: Mildly elevated troponin in the setting of septic shock and acute kidney failure likely to monitor radiated ischemia. Patient denies any chest pain. -troponins trending down -Continue aspirin Plavix and rosuvastatin -echocardiogram as above (8) Chronic obstructive pulmonary disease: Qualifiers: COPD type: emphysema Emphysema type: unspecified Qualified Code(s): J43.9 - Emphysema, unspecified Code(s): J44.9 - Chronic obstructive pulmonary disease, unspecified Status: Chronic Assessment and Plan: Continue NIPPV, steroids, bronchodilators will slowly taper off noninvasive positive pressure ventilation (9) Electrolyte abnormality: Code(s): E87.8 - Other disorders of electrolyte and fluid balance, not elsewhere classified Status: Acute Assessment and Plan: Magnesium is normalized after replacement Replace potassium as needed (10) Anemia: Qualifiers: Anemia type: unspecified type Qualified Code(s): D64.9 - Anemia, unspecified Code(s): D64.9 - Anemia, unspecified Status: Acute Assessment and Plan: FOBT positive stool H&H dropping PPI started GI consult Hold aspirin Plavix and heparin subQ EGD contemplated when stable if no plans for EGD, will advance diet as tolerated Plan DVT prophylaxis -subcutaneous heparin which will be held due to anemia Stress ulcer prophylaxis -Protonix Nutrition -heart healthy diet Code Status: Full code Time Spent With Patient Time: discusssed with family multiple times updated the hospital course and further course of action. disucssed with [facility] for transfer for further care, has been declined due to no required higher level of care at this time; patient is undergoing current standard of care. discussed case with Dr. Connor from [facility] as well, hospitalist team. feels its a lateral transfer with no need for higher level of care and declines transfer to their facility for further care. Subjective Date/time seen: 05/19/24 13:29 Interval history: No Overnight events. Patient sitting up in the chair. Remains on 4-6 L oxygen via nasal cannula. Uses BiPAP at night. Labs reviewed. Discussed with family at bedside and also over the phone. Has requested transfer to [place] or [facility]. Discussed with [place] transfer center and patient has been declined for transfer due to no required higher level of care at this time. patient family adamant at requesting transfer to higher level care. call also has been placed to [facility] Review of Systems Review of Systems: All systems reviewed & are unremarkable except as noted in HPI and below Exam Narrative: General: Pt is alert awake and in no significant distress Lungs/Chest: Air entry is decreased, few rales at bases. Cardiac: RRR. Normal S1 S2. No murmurs Circulation: Pedal pulses are intact and symmetrical. Abdomen: Normal bowel sounds. Soft. NT. ND. Extremities: No clubbing, cyanosis or edema. Warm : Garcia in place Neurologic: Follows commands. Moves all 4 extremities PERRL AO x3 Skin: No Rash Objective Data Vital Signs Vital Signs: Vital Signs - 24 hr 05/18/24 13:41 05/18/24 14:00 05/18/24 15:53 Temperature 97.4 F L Pulse Rate 63 70 69 Respiratory Rate 24 H 24 H Blood Pressure 137/55 L Pulse Oximetry 91 Oxygen Delivery Oxygen Flow Rate Fraction of Inspired Oxygen 05/18/24 16:00 05/18/24 20:01 05/18/24 20:32 Temperature 97.9 F Pulse Rate 70 67 71 Respiratory Rate 22 H Blood Pressure 130/54 L Pulse Oximetry 94 Oxygen Delivery Oxygen Flow Rate Fraction of Inspired Oxygen 05/18/24 21:08 05/18/24 21:13 05/18/24 20:00 Temperature Pulse Rate 68 65 65 Respiratory Rate 22 H 22 H Blood Pressure Pulse Oximetry 92 92 Oxygen Delivery Nasal Cannula Nasal Cannula Oxygen Flow Rate 6 6 Fraction of Inspired Oxygen 05/18/24 20:00 05/18/24 21:20 05/18/24 21:20 Temperature Pulse Rate 72 61 57 L Respiratory Rate 23 H 21 H Blood Pressure Pulse Oximetry 93 Oxygen Delivery BiPAP Oxygen Flow Rate Fraction of Inspired Oxygen 05/18/24 22:31 05/19/24 00:00 05/19/24 00:00 Temperature Pulse Rate 59 L 59 L 52 L Respiratory Rate 21 H Blood Pressure Pulse Oximetry 93 Oxygen Delivery BiPAP Oxygen Flow Rate Fraction of Inspired Oxygen 45 05/19/24 00:00 05/19/24 02:30 05/19/24 02:42 Temperature 97.0 F L Pulse Rate 60 62 67 Respiratory Rate 22 H 20 22 H Blood Pressure 126/52 L Pulse Oximetry 95 Oxygen Delivery Oxygen Flow Rate Fraction of Inspired Oxygen 05/19/24 02:10 05/19/24 02:00 05/19/24 04:00 Temperature Pulse Rate 62 54 L 67 Respiratory Rate 20 22 H Blood Pressure Pulse Oximetry 100 100 Oxygen Delivery BiPAP BiPAP Oxygen Flow Rate Fraction of Inspired Oxygen 45 05/19/24 04:00 05/19/24 05:19 05/19/24 06:00 Temperature Pulse Rate 65 63 61 Respiratory Rate Blood Pressure Pulse Oximetry Oxygen Delivery Oxygen Flow Rate Fraction of Inspired Oxygen 05/19/24 04:00 05/19/24 07:25 05/19/24 08:00 Temperature 97.4 F L 97.5 F L Pulse Rate 68 66 Respiratory Rate 22 H 21 H Blood Pressure 149/57 H 151/61 H Pulse Oximetry 97 96 95 Oxygen Delivery Nasal Cannula Oxygen Flow Rate 6 Fraction of Inspired Oxygen 05/19/24 08:00 05/19/24 08:12 05/19/24 08:00 Temperature 97.6 F Pulse Rate 64 80 65 Respiratory Rate 20 20 20 Blood Pressure 144/55 H Pulse Oximetry 100 Oxygen Delivery Oxygen Flow Rate Fraction of Inspired Oxygen 05/19/24 08:33 05/19/24 12:00 05/19/24 13:19 Temperature 97.4 F L Pulse Rate 70 63 67 Respiratory Rate 20 18 Blood Pressure 113/52 L Pulse Oximetry 95 94 Oxygen Delivery Nasal Cannula Oxygen Flow Rate 5 Fraction of Inspired Oxygen 05/19/24 13:19 Temperature Pulse Rate 67 Respiratory Rate 18 Blood Pressure Pulse Oximetry Oxygen Delivery Oxygen Flow Rate Fraction of Inspired Oxygen Intake/Output Intake/Output: Intake & Output 05/16/24 05/17/24 05/18/24 05/19/24 23:59 23:59 23:59 23:59 Intake Total 950 1650 1100 480 Output Total 2070 8904 5508 850 [facility] -1120 -125 -1375 -370 Meds/Results Medications: Active Medications Generic Name Dose Route Start Last Admin Trade Name Freq PRN Reason Stop Dose Admin Acetaminophen 650 mg 05/11/24 18:35 05/12/24 08:08 Acetaminophen 325 Mg Tablet PO 650 mg Q4H PRN Administration Mild Pain (1-3) or Fever Acetylcysteine 200 mg 05/17/24 20:00 05/19/24 13:16 Acetylcysteine 20% Inhal Soln 800 Mg/4 Ml Vial INHALATION 200 mg Q6HRT SANGEETA Administration Albuterol/Ipratropium 3 ml 05/12/24 02:00 05/19/24 13:15 Ipratropium 0.5 Mg/Albuterol Sulfate 2.5 Mg Ampul.Neb 3 Ml INHALATION 3 ml Q6HRT SANGEETA Administration Amlodipine Besylate 10 mg 05/16/24 09:00 05/19/24 08:33 Amlodipine Besylate 10 Mg Tablet PO 10 mg DAILY SANGEETA Administration Aspirin 81 mg 05/12/24 09:00 05/16/24 09:04 Aspirin 81 Mg Enteric Tablet PO 81 mg DAILY SANGEETA Administration Carvedilol 12.5 mg 05/16/24 09:00 05/19/24 08:33 Carvedilol 12.5 Mg Tablet PO 12.5 mg Q12HR SANGEETA Administration Clopidogrel Bisulfate 75 mg 05/12/24 09:00 05/16/24 09:04 Clopidogrel Bisulfate 75 Mg Tablet PO 75 mg DAILY SANGEETA Administration Dextrose 12.5 gm 05/11/24 22:22 Dextrose 50% 25 Gm/50 Ml Syringe IV PUSH PRN PRN Hypoglycemia Protocol Epoetin Shimon-epbx 10,000 units 05/17/24 09:00 05/17/24 10:23 Epoetin Shimon-Epbx 10,000 Units/Ml Vial SUB-Q 10,000 units TUTHSA@09 SANGEETA Administration Famotidine 20 mg 05/14/24 09:00 05/16/24 09:00 Famotidine 20 Mg/2 Ml Vial IV PUSH 20 mg DAILY SANGEETA Administration Fluticasone/Umeclidinium/Vilanterol 1 puff 05/12/24 08:00 05/19/24 08:00 Fluticasone/Umeclidin/Vilanter 100-62.5-25 Mcg Ellipta INHALATION 1 puff DAILYRT SANGEETA Administration Glucagon 1 mg 05/11/24 22:22 Glucagon For Inj 1 Mg Vial IM PRN PRN Hypoglycemia Protocol Glucose 15 gm 05/11/24 22:22 Glucose Oral Gel 15 Gm Of Glucse In 37.5 Gm Tube PO PRN PRN Hypoglycemia Protocol Guaifenesin 1,200 mg 05/12/24 09:00 05/19/24 08:33 Guaifenesin 12 Hr 600 Mg Tabcr PO 1,200 mg Q12HR SANGEETA Administration Heparin Sodium (Porcine) 5,000 units 05/12/24 09:00 05/16/24 09:02 Heparin Sodium 5,000 Units/Ml Vial SUB-Q 5,000 units Q12HR SANGEETA Administration Hydralazine HCl 10 mg 05/15/24 17:22 05/16/24 00:13 Hydralazine Hcl 20 Mg/Ml Vial IV PUSH 10 mg Q6H PRN Administration Blood Pressure - High Hydrocortisone Sodium Succinate 50 mg 05/17/24 11:45 05/17/24 13:22 Hydrocortisone Sodium Succinate 100 Mg/2 Ml Vial IV PUSH Not Given Q8H SANGEETA Dextrose 1,000 mls @ 100 mls/hr 05/11/24 22:22 Dextrose 5% 1,000 Ml IVPB PRN PRN Hypoglycemia Protocol Ceftriaxone Sodium 2 gm in 100 mls @ 200 mls/hr 05/14/24 10:15 05/19/24 08:34 Rocephin 2 Gm/Ns 100 Ml IVPB 200 mls/hr QAM SANGEETA Administration Insulin Aspart 4 - 8 units 05/15/24 21:00 05/19/24 12:10 Insulin Aspart (*Bkc) 100 Units/Ml SUB-Q 5 units 0800,1200,1700,2100 SANGEETA Administration Protocol Levothyroxine Sodium 75 mcg 05/12/24 06:30 05/19/24 05:31 Levothyroxine Sodium 75 Mcg Tablet PO 75 mcg DAILY@0630 SANGEETA Administration Ondansetron HCl 4 mg 05/11/24 18:35 05/17/24 00:55 Ondansetron Inj 4 Mg/2 Ml Vial IV PUSH 4 mg Q4H PRN Administration Nausea Pantoprazole Sodium 40 mg 05/16/24 21:00 05/19/24 08:34 Pantoprazole Sodium Iv 40 Mg Vial IV PUSH 40 mg Q12HR SANGEETA Administration Rosuvastatin Calcium 40 mg 05/12/24 09:00 05/19/24 08:33 Rosuvastatin 20 Mg Tablet PO 40 mg DAILY SANGEETA Administration Sodium Bicarbonate 1,300 mg 05/17/24 12:05 05/19/24 08:33 Sodium Bicarbonate Tab 650 Mg Tablet PO 1,300 mg BID SANGEETA Administration Sodium Chloride 6 ml 05/18/24 05:00 05/19/24 05:19 Sodium Chlor 3% 15 Ml Neb (Respiratory Therapy) INHALATION 05/20/24 05:01 6 ml DAILY@0500 SANGEETA Administration Sucralfate 1,000 mg 05/17/24 16:30 05/19/24 12:06 Sucralfate Susp 100 Mg/Ml 10 Ml Udc PO 1,000 mg TIDAC SANGEETA Administration Radiology Results: ITS Impressions Chest/Abdomen/Pelvis CT 05/11/24 18:29 IMPRESSION: Extensive right upper lobe, middle lobe and left lower lobe consolidating pneumonia, with mild mediastinal reactive lymph node enlargement Occasional pulmonary nodules, likely related to pulmonary granulomatous disease 29 x 31 mm left adrenal low-attenuation mass, likely due to adrenal adenoma, less likely metastasis Normal appendix Minimal sigmoid diverticulosis; no evidence of diverticulitis Moderate prostatomegaly 2. Fusiform infrarenal abdominal aortic aneurysms, measuring up to 4 cm Central venous right common femoral catheter in right common femoral vein Renal Ultrasound 05/12/24 15:15 IMPRESSION: Unremarkable renal sonogram findings. Carotid Doppler Study 05/12/24 15:34 IMPRESSION: 1. <50% stenosis in the right internal carotid artery. 2. 50-69% stenosis in the left internal carotid artery. Chest X-Ray 05/18/24 09:09 IMPRESSION: 1. Airspace opacities in right upper lobe and left lower lobe with worsening on the left, consistent with pneumonia. Labs Labs: Laboratory Results - last 24 hr 05/18/24 05/18/24 05/19/24 16:27 20:19 03:58 WBC 18.0 H RBC 2.74 L Hgb 7.8 L Hct 23.0 L MCV 83.9 MCH 28.5 MCHC 33.9 RDW 13.9 Plt Count 270 MPV 9.8 Immature Gran % (Auto) 8.2 H Neut % (Auto) 75.5 H Lymph % (Auto) 7.9 L [place] % (Auto) 6.4 Eos % (Auto) 1.8 Baso % (Auto) 0.2 Lymph # (Auto) 1.42 [place] # (Auto) 1.2 H Eos # (Auto) 0.3 Baso # (Auto) 0.0 Abs Immat Gran (auto) 1.48 H Absolute Neuts (auto) 13.6 H Absolute Nucleated RBC 0.020 H Nucleated RBC % 0.1 Platelet Estimate Adequate Hypochromasia 1+ Anisocytosis 1+ Ovalocytes 1+ Schistocytes None seen Sodium 140 Potassium 2.9 L Chloride 110 H Carbon Dioxide 17 L Anion Gap 13 H BUN 143 H D Creatinine 5.80 H Estim Creat Clear Calc 10 Estimated GFR 10 L Glucose 120 H POC Capillary Glucose 131 H 165 H Calcium 7.4 L Phosphorus 6.2 H Magnesium 2.3 Total Bilirubin 0.6 AST 31 ALT 32 Alkaline Phosphatase 85 Total Protein 6.0 L Albumin 3.1 L 05/19/24 05/19/24 07:41 11:45 WBC RBC Hgb Hct MCV MCH MCHC RDW Plt Count MPV Immature Gran % (Auto) Neut % (Auto) Lymph % (Auto) [place] % (Auto) Eos % (Auto) Baso % (Auto) Lymph # (Auto) [place] # (Auto) Eos # (Auto) Baso # (Auto) Abs Immat Gran (auto) Absolute Neuts (auto) Absolute Nucleated RBC Nucleated RBC % Platelet Estimate Hypochromasia Anisocytosis Ovalocytes Schistocytes Sodium Potassium Chloride Carbon Dioxide Anion Gap BUN Creatinine Estim Creat Clear Calc Estimated GFR Glucose POC Capillary Glucose 122 H 267 H Calcium Phosphorus Magnesium Total Bilirubin AST ALT Alkaline Phosphatase Total Protein Albumin
--- NOTE | 2024-05-19 13:44 | PCPTNOTE ---
Attempted to see patient for Physical Therapy. Patient declined to participate in therapy. He stated that he was tired and wanted to sleep. RN notified.
[2024-05-19 16:35] LABS: Glucose Point of Care 227 mg/dl (65-105)
--- NOTE | 2024-05-19 19:09 | P.CONGI_ITS ---
Assessment and Plan Assessment and plan (1) Acute blood loss anemia: Code(s): D62 - Acute posthemorrhagic anemia Status: Acute Assessment and Plan: The patient currently has multiple medical issues, primarily decompensated COPD complicated by severe pneumonia. He is recovering from severe septic shock and c urrently his most critical issue is multifactorial kidney failure. While his respiratory status is improving, it is not yet stable enough to undergo an endoscopy. Given the absence of melena, an endoscopy is not considered urgent at this time. The patient will be closely monitored. If his condition worsens, such as the development of melena, an urgent EGD will be considered. Once his respiratory s tatus stabilizes enough for discharge, a semi-elective EGD can be performed. GI Consult Note Consult date/time: 05/19/24 19:09 HPI: Eladio Morrissey is a 74 year old male smoker with chronic obstructive pulmonary disease, hypertension, hyperlipidemia, type 2 diabetes mellitus, and vascular disease who presented to the emergency department on 05/11 with near syncope and shortness of breath. In fact he reports having 4 syncopal episodes the day of admission. He was found to be hypotensive in the ER, with marked leukocytosis (21 K) with a left shift, increased pro BNP and lactic acid. CT scan showed a severe right sided pneumonia. He is currently being treated for pneumonia and exacerbated COPD with antibiotics and intravenous steroids. During hospitalizaton he has developed severed renal failure (Cr. peak 7.0) and a drop in hemoglobin, with Heme (+) stools but never documented melena. Review of Systems Review of Systems: All systems reviewed & are unremarkable except as noted in HPI and below PMFSH Past Medical History Medical History Arthritis Carotid stenosis Chronic obstructive pulmonary disease Gout Hyperlipidemia Hypertension Hypothyroidism Obstructive sleep apnea Peripheral vascular disease Tobacco dependence Type 2 diabetes mellitus Surgical History Surgical History History of cardiac catheterization History of carotid endarterectomy History of cholecystectomy History of revascularization procedure of lower extremity Family History Family History Father Hypertension Cerebrovascular accident Grandparent Family history of malignant neoplasm Diabetes mellitus Sibling Family history of diabetes mellitus in first degree relative Diabetes mellitus Mother Hyperlipidemia Social History Social History Social History: Surrogate medical decision maker: Brooks Morrissey, son ([phone]) and Kira Morrissey, spouse ([phone]). Code status: Full code. Smoking packs per day: 1 Smoking cigarettes per day: 20.0 Years smoked: 30 Smoking pack-years: 30.00 Smoking status: Current every day smoker Tobacco type: cigarettes Second hand tobacco smoke exposure: Yes Alcohol intake: never Substance use: current Substance use type: marijuana Other substance usage details: smoking and edibles Do You Feel Safe in your Home?: Yes Lack of Transportation: No Lack of Food: Never True Current Housing: I Have Housing Concerned About Future Housing: No Difficulty Paying Gas/Electric Bills: No Difficulty Paying for Meds: No Currently Unemployed: No Education: High School Diploma/GED Difficulty w/ Childcare or Family Care: No Living arrangements: with family Occupation/Education: retired Spiritual care concerns: No Meds Home Medications and Allergies Home Medications Medication Instructions Recorded Confirmed Type albuterol sulfate 2.5 mg/3 mL 2.5 mg (3 mL) inhalation Q4-6H PRN 11/11/22 05/11/24 Rx (0.083 %) solution for nebulization shortness of breath or wheezing #75 mL albuterol sulfate 90 mcg/actuation 1 inh inhalation QID PRN 02/02/23 05/11/24 History aerosol inhaler (ProAir HFA) SOB/Wheezing aspirin 81 mg tablet,delayed 81 mg PO DAILY 02/02/23 05/11/24 History release (Adult Low Dose Aspirin) duloxetine 60 mg capsule,delayed 60 mg PO DAILY #90 caps 01/03/24 05/11/24 Rx release empagliflozin 12.5 mg-metformin 1 tablet PO BID #180 tabs 01/03/24 05/11/24 Rx 1,000 mg tablet (Synjardy) hydrochlorothiazide 25 mg tablet 25 mg PO DAILY #90 tabs 01/03/24 05/11/24 Rx levothyroxine 75 mcg tablet 75 mcg PO DAILY #90 tabs 01/03/24 05/11/24 Rx rosuvastatin 40 mg tablet 40 mg PO DAILY #90 tabs 01/03/24 05/11/24 Rx budesonide 160 mcg-glycopyr 9 2 inh inhalation BID #10.7 grams 05/05/24 05/11/24 Rx mcg-formot 4.8 mcg/actuation HFA inhaler (Breztri Aerosphere) sildenafil 100 mg tablet 100 mg PO DAILY PRN sexual 05/05/24 05/11/24 Rx activity #30 tabs amlodipine 10 mg tablet 10 mg PO DAILY 05/11/24 05/11/24 History carvedilol 12.5 mg tablet 12.5 mg PO DAILY 05/11/24 05/11/24 History clopidogrel 75 mg tablet 75 mg PO DAILY 05/11/24 05/11/24 History Allergies Allergy/AdvReac Type Severity Reaction Status Date / Time penicillin G Allergy Mild Unknown Verified 05/14/24 08:24 codeine Allergy Unknown Unknown Verified 05/11/24 15:38 Penicillins Allergy Unknown Unknown Verified 05/14/24 08:24 latex Allergy Unknown Verified 05/11/24 15:38 Vital Signs Vital Signs - 24 hr 05/18/24 20:01 05/18/24 20:32 05/18/24 21:08 Temperature 97.9 F Pulse Rate 67 71 68 Respiratory Rate 22 H 22 H Blood Pressure 130/54 L Pulse Oximetry 94 Oxygen Delivery Oxygen Flow Rate Fraction of Inspired Oxygen 05/18/24 21:13 05/18/24 20:00 05/18/24 20:00 Temperature Pulse Rate 65 65 72 Respiratory Rate 22 H Blood Pressure Pulse Oximetry 92 92 Oxygen Delivery Nasal Cannula Nasal Cannula Oxygen Flow Rate 6 6 Fraction of Inspired Oxygen 05/18/24 21:20 05/18/24 21:20 05/18/24 22:31 Temperature Pulse Rate 61 57 L 59 L Respiratory Rate 23 H 21 H Blood Pressure Pulse Oximetry 93 Oxygen Delivery BiPAP Oxygen Flow Rate Fraction of Inspired Oxygen 05/19/24 00:00 05/19/24 00:00 05/19/24 00:00 Temperature 97.0 F L Pulse Rate 59 L 52 L 60 Respiratory Rate 21 H 22 H Blood Pressure 126/52 L Pulse Oximetry 93 95 Oxygen Delivery BiPAP Oxygen Flow Rate Fraction of Inspired Oxygen 45 05/19/24 02:30 05/19/24 02:42 05/19/24 02:10 Temperature Pulse Rate 62 67 62 Respiratory Rate 20 22 H 20 Blood Pressure Pulse Oximetry 100 Oxygen Delivery BiPAP Oxygen Flow Rate Fraction of Inspired Oxygen 05/19/24 02:00 05/19/24 04:00 05/19/24 04:00 Temperature Pulse Rate 54 L 67 65 Respiratory Rate 22 H Blood Pressure Pulse Oximetry 100 Oxygen Delivery BiPAP Oxygen Flow Rate Fraction of Inspired Oxygen 45 05/19/24 05:19 05/19/24 06:00 05/19/24 04:00 Temperature 97.4 F L Pulse Rate 63 61 68 Respiratory Rate 22 H Blood Pressure 149/57 H Pulse Oximetry 97 Oxygen Delivery Oxygen Flow Rate Fraction of Inspired Oxygen 05/19/24 07:25 05/19/24 08:00 05/19/24 08:00 Temperature 97.5 F L Pulse Rate 66 64 Respiratory Rate 21 H 20 Blood Pressure 151/61 H Pulse Oximetry 96 95 Oxygen Delivery Nasal Cannula Oxygen Flow Rate 6 Fraction of Inspired Oxygen 05/19/24 08:12 05/19/24 08:00 05/19/24 08:33 Temperature 97.6 F Pulse Rate 80 65 70 Respiratory Rate 20 20 Blood Pressure 144/55 H Pulse Oximetry 100 Oxygen Delivery Oxygen Flow Rate Fraction of Inspired Oxygen 05/19/24 12:00 05/19/24 13:19 05/19/24 13:19 Temperature 97.4 F L Pulse Rate 63 67 67 Respiratory Rate 20 18 18 Blood Pressure 113/52 L Pulse Oximetry 95 94 Oxygen Delivery Nasal Cannula Oxygen Flow Rate 5 Fraction of Inspired Oxygen 05/19/24 08:00 05/19/24 10:00 05/19/24 12:00 Temperature Pulse Rate 71 67 66 Respiratory Rate Blood Pressure Pulse Oximetry Oxygen Delivery Oxygen Flow Rate Fraction of Inspired Oxygen 05/19/24 14:00 05/19/24 16:00 05/19/24 16:00 Temperature Pulse Rate 58 L 66 Respiratory Rate Blood Pressure Pulse Oximetry 94 Oxygen Delivery Nasal Cannula Oxygen Flow Rate 4 Fraction of Inspired Oxygen 05/19/24 18:00 05/19/24 16:00 Temperature 97.4 F L Pulse Rate 57 L 64 Respiratory Rate 24 H Blood Pressure 125/49 L Pulse Oximetry 93 Oxygen Delivery Oxygen Flow Rate Fraction of Inspired Oxygen Exam Narrative: GEN: Alert, oriented, not in distress. HEENT: pupils are equal, EOMI, symmetrical face; oral membranes moist, Mallampati II airway NECK: Trachea is midline CHEST: Equal air entry, symmetric excursion, clear breath sounds CV: Regular S1S2 no m/g/r ABD : (+) bowel sounds Extremities : no clubbing, cyanosis, edema PSYCH: normal thought and speech, gait is normal GI: Other: Rectal examination : normal sphincter tone, dark BROWN stools (no melena) Results Labs 05/19/24 03:58 05/19/24 03:58 Labs: Short CBC 05/19/24 Range/Units 03:58 WBC 18.0 H (4.5-10.0) K/mm3 Hgb 7.8 L (14.0-18.0) g/dL Hct 23.0 L (42.0-52.0) % Plt Count 270 (150-375) k/mm3 BMP 05/19/24 03:58 Sodium 140 Potassium 2.9 L Chloride 110 H Carbon Dioxide 17 L BUN 143 H D Creatinine 5.80 H Glucose 120 H Calcium 7.4 L Liver Function 05/19/24 Range/Units 03:58 Total Bilirubin 0.6 (0.2-1.3) mg/dL AST 31 (17-59) U/L ALT 32 (6-50) U/L Alkaline Phosphatase 85 (38-126) U/L Albumin 3.1 L (3.5-5.1) g/dL
--- NOTE | 2024-05-19 19:59 | P.CONPL_ITS ---
Assessment and Plan Assessment and plan (1) Pneumonia: Qualifiers: Laterality: right Lung location: upper lobe of lung Pneumonia type: due to unspecified organism Qualified Code(s): J18.9 - Pneumonia, unspecified organism Code(s): J18.9 - Pneumonia, unspecified organism Status: Acute Assessment and Plan: Patient was admitted with multifocal pneumonia, had pneumococcal sepsis with 2:2 positive blood cultures drawn 05/11, sensitive to all antibiotics tested. He was treated with appropriate antibiotics; improved, moved out of the ICU. He has tolerated using BiPAP at night, now on room air. He had his antibiotics escalated to include meropenem yesterday, had been on ceftriaxone. No fevers. He denies any productive cough. Clinically appears to be improving. (2) Chronic obstructive pulmonary disease: Qualifiers: COPD type: emphysema Emphysema type: unspecified Qualified Code(s): J43.9 - Emphysema, unspecified Code(s): J44.9 - Chronic obstructive pulmonary disease, unspecified Status: Chronic Assessment and Plan: He says that using non-invasive PAP at night is helpful, and he sleeps better with it during his illness. He is improving with antibiotics, bronchodilators, steroids. He is getting tapered from nppv. History of Present Illness History of Present Illness Consult date: 05/21/24 Requesting physician: Chuck Bearden MD Chief complaint: Pneumonia, respiratory failure Narrative: patient was seen May 21, 2024 at 10:50 Room 204 NEW: Eladio Morrissey is a 74-year-old man with COPD, tobacco smoking, low EF followed by [facility]. He was admitted 05/11 with pneumococcal sepsis with positive blood cultures, multifocal pneumonia, septic shock, hypoxemia. His initial creatinine was elevated, a combination of chronic kidney disease and shock.He had acute anemia, melena, Plavix was stopped. H/H dropped to 6.5/19.2% May 17, he was transfused with improvement in his blood counts. He was close to intubation but was managed without this, was on Airvo and BiPAP. Now he is in IMU, CXR 05/18 showed consolidation of the RUL. He was on ceftriaxone. This was escalated to meropenem yesterday May 20 due to failure to persistence of infiltrate and symptoms. He continues to have acute renal failure with improvement in his creatinine, his H&H is stabilizing. He does not have any overt GI bleeding. A gastroenterology plans to perform an EGD prior to his discharge when he is more stable. When I saw the patient, he was waking from a nap, waiting for his to reza pacheco. He smokes a pack per day, has not had respiratory problems in the past. 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 No occupational exposure. No service. He denies having any chronic lung issues, does not use inhalers at home. DATA * 05/11/[address] ; Extensive right upper lobe, middle lobe and left lower lobe consolidating pneumonia, with mild mediastinal reactive lymph node enlargement Occasional pulmonary nodules, likely related to pulmonary granulomatous disease 29 x 31 mm left adrenal low-attenuation mass, likely due to adrenal adenoma, less likely metastasis Normal appendix Minimal sigmoid diverticulosis; no evidence of diverticulitis Moderate prostatomegaly 2. Fusiform infrarenal abdominal aortic aneurysms, measuring up to 4 cm Central venous right common femoral catheter in right common femoral vein * CXR 05/18/24; IMPRESSION: 1. Airspace opacities in right upper lobe and left lower lobe with worsening on the left, consistent with pneumonia. Review of Systems Review of Systems: Denies leg swelling, chest pain. All systems reviewed & are unremarkable except as noted in HPI and below PMFSH Past Medical History Medical History Arthritis Carotid stenosis Chronic obstructive pulmonary disease Gout Hyperlipidemia Hypertension Hypothyroidism Obstructive sleep apnea Peripheral vascular disease Tobacco dependence Type 2 diabetes mellitus Surgical History Surgical History History of cardiac catheterization History of carotid endarterectomy History of cholecystectomy History of revascularization procedure of lower extremity Family History Family History Father Hypertension Cerebrovascular accident Grandparent Family history of malignant neoplasm Diabetes mellitus Sibling Family history of diabetes mellitus in first degree relative Diabetes mellitus Mother Hyperlipidemia Social History Social History Social History: Surrogate medical decision maker: Brooks Morrissey, son ([phone]) and Kira Morrissey, spouse ([phone]). Code status: Full code. Smoking packs per day: 1 Smoking cigarettes per day: 20.0 Years smoked: 30 Smoking pack-years: 30.00 Smoking status: Current every day smoker Tobacco type: cigarettes Second hand tobacco smoke exposure: Yes Alcohol intake: never Substance use: current Substance use type: marijuana Other substance usage details: smoking and edibles Do You Feel Safe in your Home?: Yes Lack of Transportation: No Lack of Food: Never True Current Housing: I Have Housing Concerned About Future Housing: No Difficulty Paying Gas/Electric Bills: No Difficulty Paying for Meds: No Currently Unemployed: No Education: High School Diploma/GED Difficulty w/ Childcare or Family Care: No Living arrangements: with family Occupation/Education: retired Spiritual care concerns: No Meds Home Medications and Allergies Home Medications Medication Instructions Recorded Confirmed Type albuterol sulfate 2.5 mg/3 mL 2.5 mg (3 mL) inhalation Q4-6H PRN 11/11/22 05/11/24 Rx (0.083 %) solution for nebulization shortness of breath or wheezing #75 mL albuterol sulfate 90 mcg/actuation 1 inh inhalation QID PRN 02/02/23 05/11/24 Hi story aerosol inhaler (ProAir HFA) SOB/Wheezing aspirin 81 mg tablet,delayed 81 mg PO DAILY 02/02/23 05/11/24 History release (Adult Low Dose Aspirin) duloxetine 60 mg capsule,delayed 60 mg PO DAILY #90 caps 01/03/24 05/11/24 Rx release empagliflozin 12.5 mg-metformin 1 tablet PO BID #180 tabs 01/03/24 05/11/24 Rx 1,000 mg tablet (Synjardy) hydrochlorothiazide 25 mg tablet 25 mg PO DAILY #90 tabs 01/03/24 05/11/24 Rx levothyroxine 75 mcg tablet 75 mcg PO DAILY #90 tabs 01/03/24 05/11/24 Rx rosuvastatin 40 mg tablet 40 mg PO DAILY #90 tabs 01/03/24 05/11/24 Rx budesonide 160 mcg-glycopyr 9 2 inh inhalation BID #10.7 grams 05/05/24 05/11/24 Rx mcg-formot 4.8 mcg/actuation HFA inhaler (Breztri Aerosphere) sildenafil 100 mg tablet 100 mg PO DAILY PRN sexual 05/05/24 05/11/24 Rx activity #30 tabs amlodipine 10 mg tablet 10 mg PO DAILY 05/11/24 05/11/24 History carvedilol 12.5 mg tablet 12.5 mg PO DAILY 05/11/24 05/11/24 History clopidogrel 75 mg tablet 75 mg PO DAILY 05/11/24 05/11/24 History Allergies Allergy/AdvReac Type Severity Reaction Status Date / Time penicillin G Allergy Mild Unknown Verified 05/14/24 08:24 codeine Allergy Unknown Unknown Verified 05/11/24 15:38 Penicillins Allergy Unknown Unknown Verified 05/14/24 08:24 latex Allergy Unknown Verified 05/11/24 15:38 Vital Signs Vital Signs - 24 hr 05/18/24 20:01 05/18/24 20:32 05/18/24 21:08 Temperature 36.6 C Pulse Rate 67 71 68 Respiratory Rate 22 H 22 H Blood Pressure 130/54 L Pulse Oximetry 94 Oxygen Delivery Oxygen Flow Rate Fraction of Inspired Oxygen 05/18/24 21:13 05/18/24 20:00 05/18/24 20:00 Temperature Pulse Rate 65 65 72 Respiratory Rate 22 H Blood Pressure Pulse Oximetry 92 92 Oxygen Delivery Nasal Cannula Nasal Cannula Oxygen Flow Rate 6 6 Fraction of Inspired Oxygen 05/18/24 21:20 05/18/24 21:20 05/18/24 22:31 Temperature Pulse Rate 61 57 L 59 L Respiratory Rate 23 H 21 H Blood Pressure Pulse Oximetry 93 Oxygen Delivery BiPAP Oxygen Flow Rate Fraction of Inspired Oxygen 05/19/24 00:00 05/19/24 00:00 05/19/24 00:00 Temperature 36.1 C L Pulse Rate 59 L 52 L 60 Respiratory Rate 21 H 22 H Blood Pressure 126/52 L Pulse Oximetry 93 95 Oxygen Delivery BiPAP Oxygen Flow Rate Fraction of Inspired Oxygen 45 05/19/24 02:30 05/19/24 02:42 05/19/24 02:10 Temperature Pulse Rate 62 67 62 Respiratory Rate 20 22 H 20 Blood Pressure Pulse Oximetry 100 Oxygen Delivery BiPAP Oxygen Flow Rate Fraction of Inspired Oxygen 05/19/24 02:00 05/19/24 04:00 05/19/24 04:00 Temperature Pulse Rate 54 L 67 65 Respiratory Rate 22 H Blood Pressure Pulse Oximetry 100 Oxygen Delivery BiPAP Oxygen Flow Rate Fraction of Inspired Oxygen 45 05/19/24 05:19 05/19/24 06:00 05/19/24 04:00 Temperature 36.3 C L Pulse Rate 63 61 68 Respiratory Rate 22 H Blood Pressure 149/57 H Pulse Oximetry 97 Oxygen Delivery Oxygen Flow Rate Fraction of Inspired Oxygen 05/19/24 07:25 05/19/24 08:00 05/19/24 08:00 Temperature 36.4 C L Pulse Rate 66 64 Respiratory Rate 21 H 20 Blood Pressure 151/61 H Pulse Oximetry 96 95 Oxygen Delivery Nasal Cannula Oxygen Flow Rate 6 Fraction of Inspired Oxygen 05/19/24 08:12 05/19/24 08:00 05/19/24 08:33 Temperature 36.4 C Pulse Rate 80 65 70 Respiratory Rate 20 20 Blood Pressure 144/55 H Pulse Oximetry 100 Oxygen Delivery Oxygen Flow Rate Fraction of Inspired Oxygen 05/19/24 12:00 05/19/24 13:19 05/19/24 13:19 Temperature 36.3 C L Pulse Rate 63 67 67 Respiratory Rate 20 18 18 Blood Pressure 113/52 L Pulse Oximetry 95 94 Oxygen Delivery Nasal Cannula Oxygen Flow Rate 5 Fraction of Inspired Oxygen 05/19/24 08:00 05/19/24 10:00 05/19/24 12:00 Temperature Pulse Rate 71 67 66 Respiratory Rate Blood Pressure Pulse Oximetry Oxygen Delivery Oxygen Flow Rate Fraction of Inspired Oxygen 05/19/24 14:00 05/19/24 16:00 05/19/24 16:00 Temperature Pulse Rate 58 L 66 Respiratory Rate Blood Pressure Pulse Oximetry 94 Oxygen Delivery Nasal Cannula Oxygen Flow Rate 4 Fraction of Inspired Oxygen 05/19/24 18:00 05/19/24 16:00 05/19/24 19:41 Temperature 36.3 C L Pulse Rate 57 L 64 57 L Respiratory Rate 24 H 24 H Blood Pressure 125/49 L Pulse Oximetry 93 93 Oxygen Delivery Nasal Cannula Oxygen Flow Rate 4 Fraction of Inspired Oxygen Exam Narrative: GEN: Alert, oriented, not in distress. Pale. Cooperative. HEENT: pupils are equal, EOMI, symmetrical face; oral membranes partially moist, Mallampati III airway, no teeth NECK: Trachea is midline without lymphadenopathy CHEST: Equal air entry, symmetric excursion, clear breath sounds CV: Regular S1S2 no m/g/r ABD : (+) bowel sounds Extremities : no clubbing, cyanosis, or edema. no calf tenderness. PSYCH: normal thought and speech Results Laboratory Findings 05/21/24 14:49 05/21/24 04:39 ABG, PT/INR, D-dimer: ABG ABG pH 7.410 (7.350-7.450) 05/15/24 04:51 ABG pCO2 24.0 mmHg (35.0-45.0) L 05/15/24 04:51 ABG pO2 85.3 mmHg (80.0-100.0) 05/15/24 04:51 ABG O2 Saturation 96.8 % (95.0-100.0) 05/15/24 04:51 PT/INR, D-dimer PT 14.6 Seconds (11.1-14.7) 05/11/24 15:55 INR 1.1 05/11/24 15:55 D-Dimer 3.93 ug/mL (<0.48) H 05/11/24 15:55 Abnormal lab findings: Abnormal Labs 05/11/24 05/11/24 05/11/24 15:55 20:24 20:46 WBC 21.8 H RBC 4.14 L Hgb 12.2 L Hct 35.5 L Immature Gran % (Auto) Neut % (Auto) Lymph % (Auto) Baso % (Auto) Lymph # (Auto) Gilliam # (Auto) Abs Immat Gran (auto) Absolute Neuts (auto) Absolute Nucleated RBC Neutrophils % (Manual) Band Neutrophils % 17 H Lymphocytes % (Manual) 3 L Abs Neuts (Manual) 19.62 H Abs Lymphs (Manual) 0.65 L Abs Monocytes (Manual) 1.09 H ESR D-Dimer 3.93 H ABG pCO2 29.2 L ABG pO2 64.7 L ABG HCO3 18.2 L ABG O2 Saturation 93.3 L ABG O2 Content Oxyhemoglobin Reduced Hemoglobin 7.8 H Total Hemoglobin Sodium 131 L 131 L Potassium Chloride 95 L Carbon Dioxide Anion Gap 14 H BUN 56 H D 59 H Creatinine 4.40 H 4.40 H Estimated GFR 13 L 13 L Glucose 163 H 178 H POC Capillary Glucose Hemoglobin A1c Lactic Acid 5.5 H* 2.2 H Calcium 7.7 L Phosphorus Magnesium AST ALT Total Creatine Kinase Troponin I 0.102 H* 0.080 H* D C-Reactive Protein NT-Pro-B Natriuret Pep 30142 H Total Protein Albumin TSH Urine Appearance Urine Protein Urine Glucose (UA) Urine Ketones Ur Blood (Man) Urine Bilirubin Leukocyte Esterase Rfl Urine WBC Ur Squamous Epith Cells Urine Bacteria Protein/Creat Ratio 2 Stl Occult Blood (IFOB) Random Vancomycin Urine Pneumococcal Ag Crossmatch 05/11/24 05/12/24 05/12/24 23:22 01:13 04:35 WBC 20.3 H RBC 3.81 L Hgb 11.2 L Hct 32.7 L Immature Gran % (Auto) Neut % (Auto) 94.0 H Lymph % (Auto) 1.9 L Baso % (Auto) Lymph # (Auto) 0.38 L Gilliam # (Auto) Abs Immat Gran (auto) 0.06 H Absolute Neuts (auto) 19.1 H Absolute Nucleated RBC Neutrophils % (Manual) Band Neutrophils % Lymphocytes % (Manual) Abs Neuts (Manual) Abs Lymphs (Manual) Abs Monocytes (Manual) ESR 104 H D-Dimer ABG pCO2 ABG pO2 ABG HCO3 ABG O2 Saturation ABG O2 Content Oxyhemoglobin Reduced Hemoglobin Total Hemoglobin Sodium 133 L Potassium Chloride Carbon Dioxide Anion Gap BUN 64 H Creatinine 4.60 H Estimated GFR 13 L Glucose 200 H POC Capillary Glucose Hemoglobin A1c 6.0 H Lactic Acid Calcium 7.4 L Phosphorus Magnesium 1.5 L AST ALT Total Creatine Kinase 471 H Troponin I C-Reactive Protein > 45.0 H NT-Pro-B Natriuret Pep Total Protein Albumin 3.1 L TSH 6.590 H Urine Appearance Turbid H Urine Protein 3+ H Urine Glucose (UA) 1+ H Urine Ketones Trace H Ur Blood (Man) 3+ H Urine Bilirubin 1+ H Leukocyte Esterase Rfl 1+ H Urine WBC 21-50 H Ur Squamous Epith Cells Many H Urine Bacteria 2+ H Protein/Creat Ratio 2 0.52 H Stl Occult Blood (IFOB) Random Vancomycin Urine Pneumococcal Ag Detected A Crossmatch 05/12/24 05/12/24 05/12/24 05:18 08:06 11:24 WBC RBC Hgb Hct Immature Gran % (Auto) Neut % (Auto) Lymph % (Auto) Baso % (Auto) Lymph # (Auto) Gilliam # (Auto) Abs Immat Gran (auto) Absolute Neuts (auto) Absolute Nucleated RBC Neutrophils % (Manual) Band Neutrophils % Lymphocytes % (Manual) Abs Neuts (Manual) Abs Lymphs (Manual) Abs Monocytes (Manual) ESR D-Dimer ABG pCO2 29.7 L ABG pO2 57.6 L ABG HCO3 17.2 L ABG O2 Saturation 90.0 L ABG O2 Content 14.6 L Oxyhemoglobin 88.8 L Reduced Hemoglobin 10.7 H Total Hemoglobin 11.7 L Sodium Potassium Chloride Carbon Dioxide Anion Gap BUN Creatinine Estimated GFR Glucose POC Capillary Glucose 203 H 143 H Hemoglobin A1c Lactic Acid Calcium Phosphorus Magnesium AST ALT Total Creatine Kinase Troponin I C-Reactive Protein NT-Pro-B Natriuret Pep Total Protein Albumin TSH Urine Appearance Urine Protein Urine Glucose (UA) Urine Ketones Ur Blood (Man) Urine Bilirubin Leukocyte Esterase Rfl Urine WBC Ur Squamous Epith Cells Urine Bacteria Protein/Creat Ratio 2 Stl Occult Blood (IFOB) Random Vancomycin Urine Pneumococcal Ag Crossmatch 05/12/24 05/12/24 05/13/24 16:06 20:19 00:15 WBC RBC Hgb Hct Immature Gran % (Auto) Neut % (Auto) Lymph % (Auto) Baso % (Auto) Lymph # (Auto) Gilliam # (Auto) Abs Immat Gran (auto) Absolute Neuts (auto) Absolute Nucleated RBC Neutrophils % (Manual) Band Neutrophils % Lymphocytes % (Manual) Abs Neuts (Manual) Abs Lymphs (Manual) Abs Monocytes (Manual) ESR D-Dimer ABG pCO2 ABG pO2 ABG HCO3 ABG O2 Saturation ABG O2 Content Oxyhemoglobin Reduced Hemoglobin Total Hemoglobin Sodium Potassium Chloride Carbon Dioxide Anion Gap BUN Creatinine Estimated GFR Glucose POC Capillary Glucose 182 H 162 H 164 H Hemoglobin A1c Lactic Acid Calcium Phosphorus Magnesium AST ALT Total Creatine Kinase Troponin I C-Reactive Protein NT-Pro-B Natriuret Pep Total Protein Albumin TSH Urine Appearance Urine Protein Urine Glucose (UA) Urine Ketones Ur Blood (Man) Urine Bilirubin Leukocyte Esterase Rfl Urine WBC Ur Squamous Epith Cells Urine Bacteria Protein/Creat Ratio 2 Stl Occult Blood (IFOB) Random Vancomycin Urine Pneumococcal Ag Crossmatch 05/13/24 05/13/24 05/13/24 02:27 02:27 02:27 WBC 18.9 H RBC 3.55 L Hgb 10.3 L Hct 30.0 L Immature Gran % (Auto) Neut % (Auto) 92.9 H Lymph % (Auto) 2.9 L Baso % (Auto) Lymph # (Auto) 0.54 L Gilliam # (Auto) Abs Immat Gran (auto) 0.06 H Absolute Neuts (auto) 17.6 H Absolute Nucleated RBC Neutrophils % (Manual) Band Neutrophils % Lymphocytes % (Manual) Abs Neuts (Manual) Abs Lymphs (Manual) Abs Monocytes (Manual) ESR D-Dimer ABG pCO2 ABG pO2 ABG HCO3 ABG O2 Saturation ABG O2 Content Oxyhemoglobin Reduced Hemoglobin Total Hemoglobin Sodium 133 L Potassium Chloride Carbon Dioxide 16 L Anion Gap BUN 82 H D Creatinine 4.80 H 4.70 H Estimated GFR 12 L 12 L Glucose 153 H POC Capillary Glucose Hemoglobin A1c Lactic Acid Calcium 7.2 L Phosphorus Magnesium 2.4 H AST ALT Total Creatine Kinase Troponin I 0.058 H* C-Reactive Protein NT-Pro-B Natriuret Pep Total Protein 6.0 L Albumin 3.0 L TSH Urine Appearance Urine Protein Urine Glucose (UA) Urine Ketones Ur Blood (Man) Urine Bilirubin Leukocyte Esterase Rfl Urine WBC Ur Squamous Epith Cells Urine Bacteria Protein/Creat Ratio 2 Stl Occult Blood (IFOB) Random Vancomycin Urine Pneumococcal Ag Crossmatch 05/13/24 05/13/24 05/13/24 04:46 05:02 11:46 WBC RBC Hgb Hct Immature Gran % (Auto) Neut % (Auto) Lymph % (Auto) Baso % (Auto) Lymph # (Auto) Gilliam # (Auto) Abs Immat Gran (auto) Absolute Neuts (auto) Absolute Nucleated RBC Neutrophils % (Manual) Band Neutrophils % Lymphocytes % (Manual) Abs Neuts (Manual) Abs Lymphs (Manual) Abs Monocytes (Manual) ESR D-Dimer ABG pCO2 28.3 L ABG pO2 69.7 L ABG HCO3 16.5 L ABG O2 Saturation 94.1 L ABG O2 Content 13.5 L Oxyhemoglobin Reduced Hemoglobin 6.8 H Total Hemoglobin 10.3 L Sodium Potassium Chloride Carbon Dioxide Anion Gap BUN Creatinine Estimated GFR Glucose POC Capillary Glucose 161 H 205 H Hemoglobin A1c Lactic Acid Calcium Phosphorus Magnesium AST ALT Total Creatine Kinase Troponin I C-Reactive Protein NT-Pro-B Natriuret Pep Total Protein Albumin TSH Urine Appearance Urine Protein Urine Glucose (UA) Urine Ketones Ur Blood (Man) Urine Bilirubin Leukocyte Esterase Rfl Urine WBC Ur Squamous Epith Cells Urine Bacteria Protein/Creat Ratio 2 Stl Occult Blood (IFOB) Random Vancomycin Urine Pneumococcal Ag Crossmatch 05/13/24 05/13/24 05/13/24 17:07 20:43 23:30 WBC RBC Hgb Hct Immature Gran % (Auto) Neut % (Auto) Lymph % (Auto) Baso % (Auto) Lymph # (Auto) Gilliam # (Auto) Abs Immat Gran (auto) Absolute Neuts (auto) Absolute Nucleated RBC Neutrophils % (Manual) Band Neutrophils % Lymphocytes % (Manual) Abs Neuts (Manual) Abs Lymphs (Manual) Abs Monocytes (Manual) ESR D-Dimer ABG pCO2 ABG pO2 ABG HCO3 ABG O2 Saturation ABG O2 Content Oxyhemoglobin Reduced Hemoglobin Total Hemoglobin Sodium Potassium Chloride Carbon Dioxide Anion Gap BUN Creatinine Estimated GFR Glucose POC Capillary Glucose 143 H 217 H 182 H Hemoglobin A1c Lactic Acid Calcium Phosphorus Magnesium AST ALT Total Creatine Kinase Troponin I C-Reactive Protein NT-Pro-B Natriuret Pep Total Protein Albumin TSH Urine Appearance Urine Protein Urine Glucose (UA) Urine Ketones Ur Blood (Man) Urine Bilirubin Leukocyte Esterase Rfl Urine WBC Ur Squamous Epith Cells Urine Bacteria Protein/Creat Ratio 2 Stl Occult Blood (IFOB) Random Vancomycin Urine Pneumococcal Ag Crossmatch 05/14/24 05/14/24 05/14/24 04:33 05:49 08:38 WBC 16.5 H RBC 3.00 L Hgb 8.9 L Hct 25.0 L Immature Gran % (Auto) 1.3 H Neut % (Auto) 90.2 H Lymph % (Auto) 3.0 L Baso % (Auto) 0.1 L Lymph # (Auto) 0.49 L Gilliam # (Auto) 0.9 H Abs Immat Gran (auto) 0.21 H Absolute Neuts (auto) 14.9 H Absolute Nucleated RBC Neutrophils % (Manual) Band Neutrophils % Lymphocytes % (Manual) Abs Neuts (Manual) Abs Lymphs (Manual) Abs Monocytes (Manual) ESR D-Dimer ABG pCO2 26.6 L ABG pO2 60.2 L ABG HCO3 16.9 L ABG O2 Saturation 92.1 L ABG O2 Content 14.7 L Oxyhemoglobin 89.9 L Reduced Hemoglobin 9.6 H Total Hemoglobin 11.6 L Sodium Potassium Chloride Carbon Dioxide 19 L Anion Gap 16 H BUN 101 H D Creatinine 6.20 H Estimated GFR 9 L Glucose 157 H POC Capillary Glucose 170 H Hemoglobin A1c Lactic Acid Calcium 7.2 L Phosphorus 5.2 H Magnesium 2.7 H AST 117 H ALT 65 H Total Creatine Kinase Troponin I C-Reactive Protein NT-Pro-B Natriuret Pep Total Protein 6.0 L Albumin 3.4 L TSH Urine Appearance Urine Protein Urine Glucose (UA) Urine Ketones Ur Blood (Man) Urine Bilirubin Leukocyte Esterase Rfl Urine WBC Ur Squamous Epith Cells Urine Bacteria Protein/Creat Ratio 2 Stl Occult Blood (IFOB) Random Vancomycin Urine Pneumococcal Ag Crossmatch 05/14/24 05/14/24 05/14/24 11:13 16:09 20:41 WBC RBC Hgb Hct Immature Gran % (Auto) Neut % (Auto) Lymph % (Auto) Baso % (Auto) Lymph # (Auto) Gilliam # (Auto) Abs Immat Gran (auto) Absolute Neuts (auto) Absolute Nucleated RBC Neutrophils % (Manual) Band Neutrophils % Lymphocytes % (Manual) Abs Neuts (Manual) Abs Lymphs (Manual) Abs Monocytes (Manual) ESR D-Dimer ABG pCO2 ABG pO2 ABG HCO3 ABG O2 Saturation ABG O2 Content Oxyhemoglobin Reduced Hemoglobin Total Hemoglobin Sodium Potassium Chloride Carbon Dioxide Anion Gap BUN Creatinine Estimated GFR Glucose POC Capillary Glucose 158 H 199 H 184 H Hemoglobin A1c Lactic Acid Calcium Phosphorus Magnesium AST ALT Total Creatine Kinase Troponin I C-Reactive Protein NT-Pro-B Natriuret Pep Total Protein Albumin TSH Urine Appearance Urine Protein Urine Glucose (UA) Urine Ketones Ur Blood (Man) Urine Bilirubin Leukocyte Esterase Rfl Urine WBC Ur Squamous Epith Cells Urine Bacteria Protein/Creat Ratio 2 Stl Occult Blood (IFOB) Random Vancomycin Urine Pneumococcal Ag Crossmatch 05/15/24 05/15/24 05/15/24 00:02 04:04 04:51 WBC 15.5 H RBC 3.13 L Hgb 9.1 L Hct 26.1 L Immature Gran % (Auto) Neut % (Auto) Lymph % (Auto) Baso % (Auto) Lymph # (Auto) Gilliam # (Auto) Abs Immat Gran (auto) Absolute Neuts (auto) Absolute Nucleated RBC Neutrophils % (Manual) 92 H Band Neutrophils % Lymphocytes % (Manual) 4.0 L Abs Neuts (Manual) Abs Lymphs (Manual) 0.62 L Abs Monocytes (Manual) ESR D-Dimer ABG pCO2 24.0 L ABG pO2 ABG HCO3 14.9 L ABG O2 Saturation ABG O2 Content 12.0 L Oxyhemoglobin Reduced Hemoglobin Total Hemoglobin 8.9 L Sodium Potassium 3.2 L Chloride Carbon Dioxide 17 L Anion Gap 19 H BUN 119 H D Creatinine 6.90 H Estimated GFR 8 L Glucose 174 H POC Capillary Glucose 180 H Hemoglobin A1c Lactic Acid 0.6 L Calcium 7.3 L Phosphorus 5.4 H Magnesium 2.6 H AST 70 H ALT Total Creatine Kinase Troponin I C-Reactive Protein NT-Pro-B Natriuret Pep Total Protein Albumin TSH Urine Appearance Urine Protein Urine Glucose (UA) Urine Ketones Ur Blood (Man) Urine Bilirubin Leukocyte Esterase Rfl Urine WBC Ur Squamous Epith Cells Urine Bacteria Protein/Creat Ratio 2 Stl Occult Blood (IFOB) Random Vancomycin Urine Pneumococcal Ag Crossmatch 05/15/24 05/15/24 05/15/24 08:13 08:53 11:31 WBC RBC Hgb Hct Immature Gran % (Auto) Neut % (Auto) Lymph % (Auto) Baso % (Auto) Lymph # (Auto) Gilliam # (Auto) Abs Immat Gran (auto) Absolute Neuts (auto) Absolute Nucleated RBC Neutrophils % (Manual) Band Neutrophils % Lymphocytes % (Manual) Abs Neuts (Manual) Abs Lymphs (Manual) Abs Monocytes (Manual) ESR D-Dimer ABG pCO2 ABG pO2 ABG HCO3 ABG O2 Saturation ABG O2 Content Oxyhemoglobin Reduced Hemoglobin Total Hemoglobin Sodium Potassium Chloride Carbon Dioxide Anion Gap BUN Creatinine Estimated GFR Glucose POC Capillary Glucose 189 H 191 H Hemoglobin A1c Lactic Acid Calcium Phosphorus Magnesium AST ALT Total Creatine Kinase Troponin I C-Reactive Protein NT-Pro-B Natriuret Pep Total Protein Albumin TSH Urine Appearance Urine Protein Urine Glucose (UA) Urine Ketones Ur Blood (Man) Urine Bilirubin Leukocyte Esterase Rfl Urine WBC Ur Squamous Epith Cells Urine Bacteria Protein/Creat Ratio 2 Stl Occult Blood (IFOB) Random Vancomycin 25.0 H Urine Pneumococcal Ag Crossmatch 05/15/24 05/15/24 05/16/24 15:54 20:28 04:28 WBC 16.4 H RBC 2.68 L Hgb 7.7 L Hct 22.5 L Immature Gran % (Auto) 4.5 H Neut % (Auto) 82.2 H Lymph % (Auto) 6.1 L Baso % (Auto) 0.1 L Lymph # (Auto) Gilliam # (Auto) 1.2 H Abs Immat Gran (auto) 0.74 H Absolute Neuts (auto) 13.4 H Absolute Nucleated RBC Neutrophils % (Manual) Band Neutrophils % Lymphocytes % (Manual) Abs Neuts (Manual) Abs Lymphs (Manual) Abs Monocytes (Manual) ESR D-Dimer ABG pCO2 ABG pO2 ABG HCO3 ABG O2 Saturation ABG O2 Content Oxyhemoglobin Reduced Hemoglobin Total Hemoglobin Sodium 136 L Potassium 3.2 L Chloride Carbon Dioxide 15 L Anion Gap 15 H BUN 143 H D Creatinine 7.00 H Estimated GFR 8 L Glucose 212 H POC Capillary Glucose 247 H 222 H Hemoglobin A1c Lactic Acid Calcium 7.2 L Phosphorus 5.0 H Magnesium 2.5 H AST ALT Total Creatine Kinase Troponin I C-Reactive Protein NT-Pro-B Natriuret Pep Total Protein 6.0 L Albumin 3.1 L TSH Urine Appearance Urine Protein Urine Glucose (UA) Urine Ketones Ur Blood (Man) Urine Bilirubin Leukocyte Esterase Rfl Urine WBC Ur Squamous Epith Cells Urine Bacteria Protein/Creat Ratio 2 Stl Occult Blood (IFOB) Random Vancomycin Urine Pneumococcal Ag Crossmatch 05/16/24 05/16/24 05/16/24 07:50 11:42 16:32 WBC RBC Hgb Hct Immature Gran % (Auto) Neut % (Auto) Lymph % (Auto) Baso % (Auto) Lymph # (Auto) Gilliam # (Auto) Abs Immat Gran (auto) Absolute Neuts (auto) Absolute Nucleated RBC Neutrophils % (Manual) Band Neutrophils % Lymphocytes % (Manual) Abs Neuts (Manual) Abs Lymphs (Manual) Abs Monocytes (Manual) ESR D-Dimer ABG pCO2 ABG pO2 ABG HCO3 ABG O2 Saturation ABG O2 Content Oxyhemoglobin Reduced Hemoglobin Total Hemoglobin Sodium Potassium Chloride Carbon Dioxide Anion Gap BUN Creatinine Estimated GFR Glucose POC Capillary Glucose 268 H 175 H 176 H Hemoglobin A1c Lactic Acid Calcium Phosphorus Magnesium AST ALT Total Creatine Kinase Troponin I C-Reactive Protein NT-Pro-B Natriuret Pep Total Protein Albumin TSH Urine Appearance Urine Protein Urine Glucose (UA) Urine Ketones Ur Blood (Man) Urine Bilirubin Leukocyte Esterase Rfl Urine WBC Ur Squamous Epith Cells Urine Bacteria Protein/Creat Ratio 2 Stl Occult Blood (IFOB) Random Vancomycin Urine Pneumococcal Ag Crossmatch 05/16/24 05/16/24 05/17/24 17:13 19:47 07:28 WBC 14.9 H RBC 2.27 L Hgb 7.6 L 6.5 L* Hct 22.5 L 19.2 L* Immature Gran % (Auto) 5.8 H Neut % (Auto) 80.5 H Lymph % (Auto) 7.5 L Baso % (Auto) 0.1 L Lymph # (Auto) Gilliam # (Auto) 0.9 H Abs Immat Gran (auto) 0.86 H Absolute Neuts (auto) 12.0 H Absolute Nucleated RBC Neutrophils % (Manual) Band Neutrophils % Lymphocytes % (Manual) Abs Neuts (Manual) Abs Lymphs (Manual) Abs Monocytes (Manual) ESR D-Dimer ABG pCO2 ABG pO2 ABG HCO3 ABG O2 Saturation ABG O2 Content Oxyhemoglobin Reduced Hemoglobin Total Hemoglobin Sodium 136 L Potassium 3.3 L Chloride Carbon Dioxide 14 L Anion Gap 16 H BUN 165 H D Creatinine 6.80 H Estimated GFR 8 L Glucose 169 H POC Capillary Glucose 235 H Hemoglobin A1c Lactic Acid Calcium 7.3 L Phosphorus 7.2 H Magnesium 2.4 H AST ALT Total Creatine Kinase Troponin I C-Reactive Protein NT-Pro-B Natriuret Pep Total Protein 5.0 L Albumin 2.9 L TSH Urine Appearance Urine Protein Urine Glucose (UA) Urine Ketones Ur Blood (Man) Urine Bilirubin Leukocyte Esterase Rfl Urine WBC Ur Squamous Epith Cells Urine Bacteria Protein/Creat Ratio 2 Stl Occult Blood (IFOB) Random Vancomycin Urine Pneumococcal Ag Crossmatch 05/17/24 05/17/24 05/17/24 07:30 07:57 09:26 WBC RBC Hgb Hct Immature Gran % (Auto) Neut % (Auto) Lymph % (Auto) Baso % (Auto) Lymph # (Auto) Gilliam # (Auto) Abs Immat Gran (auto) Absolute Neuts (auto) Absolute Nucleated RBC Neutrophils % (Manual) Band Neutrophils % Lymphocytes % (Manual) Abs Neuts (Manual) Abs Lymphs (Manual) Abs Monocytes (Manual) ESR D-Dimer ABG pCO2 ABG pO2 ABG HCO3 ABG O2 Saturation ABG O2 Content Oxyhemoglobin Reduced Hemoglobin Total Hemoglobin Sodium Potassium Chloride Carbon Dioxide Anion Gap BUN Creatinine Estimated GFR Glucose POC Capillary Glucose 187 H Hemoglobin A1c Lactic Acid Calcium Phosphorus Magnesium AST ALT Total Creatine Kinase Troponin I C-Reactive Protein NT-Pro-B Natriuret Pep Total Protein Albumin TSH Urine Appearance Urine Protein Urine Glucose (UA) Urine Ketones Ur Blood (Man) Urine Bilirubin Leukocyte Esterase Rfl Urine WBC Ur Squamous Epith Cells Urine Bacteria Protein/Creat Ratio 2 Stl Occult Blood (IFOB) Positive H Random Vancomycin Urine Pneumococcal Ag Crossmatch See Detail 05/17/24 05/17/24 05/17/24 11:22 15:28 17:48 WBC RBC Hgb 7.7 L Hct 23.3 L Immature Gran % (Auto) Neut % (Auto) Lymph % (Auto) Baso % (Auto) Lymph # (Auto) Gilliam # (Auto) Abs Immat Gran (auto) Absolute Neuts (auto) Absolute Nucleated RBC Neutrophils % (Manual) Band Neutrophils % Lymphocytes % (Manual) Abs Neuts (Manual) Abs Lymphs (Manual) Abs Monocytes (Manual) ESR D-Dimer ABG pCO2 ABG pO2 ABG HCO3 ABG O2 Saturation ABG O2 Content Oxyhemoglobin Reduced Hemoglobin Total Hemoglobin Sodium Potassium Chloride Carbon Dioxide Anion Gap BUN Creatinine Estimated GFR Glucose POC Capillary Glucose 186 H 180 H Hemoglobin A1c Lactic Acid Calcium Phosphorus Magnesium AST ALT Total Creatine Kinase Troponin I C-Reactive Protein NT-Pro-B Natriuret Pep Total Protein Albumin TSH Urine Appearance Urine Protein Urine Glucose (UA) Urine Ketones Ur Blood (Man) Urine Bilirubin Leukocyte Esterase Rfl Urine WBC Ur Squamous Epith Cells Urine Bacteria Protein/Creat Ratio 2 Stl Occult Blood (IFOB) Random Vancomycin Urine Pneumococcal Ag Crossmatch 05/17/24 05/18/24 05/18/24 20:24 05:46 07:17 WBC 16.4 H RBC 2.76 L Hgb 7.9 L Hct 22.9 L Immature Gran % (Auto) 7.5 H Neut % (Auto) Lymph % (Auto) 14.1 L Baso % (Auto) Lymph # (Auto) Gilliam # (Auto) 1.3 H Abs Immat Gran (auto) 1.23 H Absolute Neuts (auto) 11.3 H Absolute Nucleated RBC Neutrophils % (Manual) Band Neutrophils % Lymphocytes % (Manual) Abs Neuts (Manual) Abs Lymphs (Manual) Abs Monocytes (Manual) ESR D-Dimer ABG pCO2 ABG pO2 ABG HCO3 ABG O2 Saturation ABG O2 Content Oxyhemoglobin Reduced Hemoglobin Total Hemoglobin Sodium 136 L Potassium 3.1 L Chloride 108 H Carbon Dioxide 16 L Anion Gap BUN 159 H Creatinine 6.60 H Estimated GFR 8 L Glucose 119 H POC Capillary Glucose 146 H 133 H Hemoglobin A1c Lactic Acid Calcium 7.3 L Phosphorus 6.0 H Magnesium 2.4 H AST ALT Total Creatine Kinase Troponin I C-Reactive Protein NT-Pro-B Natriuret Pep Total Protein 6.0 L Albumin 3.0 L TSH Urine Appearance Urine Protein Urine Glucose (UA) Urine Ketones Ur Blood (Man) Urine Bilirubin Leukocyte Esterase Rfl Urine WBC Ur Squamous Epith Cells Urine Bacteria Protein/Creat Ratio 2 Stl Occult Blood (IFOB) Random Vancomycin Urine Pneumococcal Ag Crossmatch 05/18/24 05/18/24 05/18/24 11:25 16:27 20:19 WBC RBC Hgb Hct Immature Gran % (Auto) Neut % (Auto) Lymph % (Auto) Baso % (Auto) Lymph # (Auto) Gilliam # (Auto) Abs Immat Gran (auto) Absolute Neuts (auto) Absolute Nucleated RBC Neutrophils % (Manual) Band Neutrophils % Lymphocytes % (Manual) Abs Neuts (Manual) Abs Lymphs (Manual) Abs Monocytes (Manual) ESR D-Dimer ABG pCO2 ABG pO2 ABG HCO3 ABG O2 Saturation ABG O2 Content Oxyhemoglobin Reduced Hemoglobin Total Hemoglobin Sodium Potassium Chloride Carbon Dioxide Anion Gap BUN Creatinine Estimated GFR Glucose POC Capillary Glucose 134 H 131 H 165 H Hemoglobin A1c Lactic Acid Calcium Phosphorus Magnesium AST ALT Total Creatine Kinase Troponin I C-Reactive Protein NT-Pro-B Natriuret Pep Total Protein Albumin TSH Urine Appearance Urine Protein Urine Glucose (UA) Urine Ketones Ur Blood (Man) Urine Bilirubin Leukocyte Esterase Rfl Urine WBC Ur Squamous Epith Cells Urine Bacteria Protein/Creat Ratio 2 Stl Occult Blood (IFOB) Random Vancomycin Urine Pneumococcal Ag Crossmatch 05/19/24 05/19/24 05/19/24 03:58 07:41 11:45 WBC 18.0 H RBC 2.74 L Hgb 7.8 L Hct 23.0 L Immature Gran % (Auto) 8.2 H Neut % (Auto) 75.5 H Lymph % (Auto) 7.9 L Baso % (Auto) Lymph # (Auto) Gilliam # (Auto) 1.2 H Abs Immat Gran (auto) 1.48 H Absolute Neuts (auto) 13.6 H Absolute Nucleated RBC 0.020 H Neutrophils % (Manual) Band Neutrophils % Lymphocytes % (Manual) Abs Neuts (Manual) Abs Lymphs (Manual) Abs Monocytes (Manual) ESR D-Dimer ABG pCO2 ABG pO2 ABG HCO3 ABG O2 Saturation ABG O2 Content Oxyhemoglobin Reduced Hemoglobin Total Hemoglobin Sodium Potassium 2.9 L Chloride 110 H Carbon Dioxide 17 L Anion Gap 13 H BUN 143 H D Creatinine 5.80 H Estimated GFR 10 L Glucose 120 H POC Capillary Glucose 122 H 267 H Hemoglobin A1c Lactic Acid Calcium 7.4 L Phosphorus 6.2 H Magnesium AST ALT Total Creatine Kinase Troponin I C-Reactive Protein NT-Pro-B Natriuret Pep Total Protein 6.0 L Albumin 3.1 L TSH Urine Appearance Urine Protein Urine Glucose (UA) Urine Ketones Ur Blood (Man) Urine Bilirubin Leukocyte Esterase Rfl Urine WBC Ur Squamous Epith Cells Urine Bacteria Protein/Creat Ratio 2 Stl Occult Blood (IFOB) Random Vancomycin Urine Pneumococcal Ag Crossmatch 05/19/24 16:01 WBC RBC Hgb Hct Immature Gran % (Auto) Neut % (Auto) Lymph % (Auto) Baso % (Auto) Lymph # (Auto) Gilliam # (Auto) Abs Immat Gran (auto) Absolute Neuts (auto) Absolute Nucleated RBC Neutrophils % (Manual) Band Neutrophils % Lymphocytes % (Manual) Abs Neuts (Manual) Abs Lymphs (Manual) Abs Monocytes (Manual) ESR D-Dimer ABG pCO2 ABG pO2 ABG HCO3 ABG O2 Saturation ABG O2 Content Oxyhemoglobin Reduced Hemoglobin Total Hemoglobin Sodium Potassium Chloride Carbon Dioxide Anion Gap BUN Creatinine Estimated GFR Glucose POC Capillary Glucose 227 H Hemoglobin A1c Lactic Acid Calcium Phosphorus Magnesium AST ALT Total Creatine Kinase Troponin I C-Reactive Protein NT-Pro-B Natriuret Pep Total Protein Albumin TSH Urine Appearance Urine Protein Urine Glucose (UA) Urine Ketones Ur Blood (Man) Urine Bilirubin Leukocyte Esterase Rfl Urine WBC Ur Squamous Epith Cells Urine Bacteria Protein/Creat Ratio 2 Stl Occult Blood (IFOB) Random Vancomycin Urine Pneumococcal Ag Crossmatch
[2024-05-19 20:50] LABS: Glucose Point of Care 184 mg/dl (65-105)
[2024-05-20] VITALS (30 sets, daily range): BP systolic 115–155; BP diastolic 44–68; PULSE 62–108; RESP 14–22; TEMP 36.4–37.1; O2SAT 92–100
[2024-05-20] MEDS: ACETYLCYSTEINE 20% INHAL SOLN 800 MG/4 ML VIAL 200 MG INHALATION ×4 (02:24→20:30)
[2024-05-20] MEDS: IPRATROPIUM 0.5 MG/ALBUTEROL SULFATE 2.5 MG AMPUL.NEB 3 ML INHALATION ×4 (02:24→20:30)
[2024-05-20 04:15] LABS: Basophils Absolute Auto 0.1 K/mm3 (0.0-0.1); Basophils Percent Auto 0.2 % (0.2-1.2); Eosinophils Absolute Auto 0.5 K/mm3 (0-0.3); Eosinophils Percent Auto 1.9 % (0-4.4); Hematocrit 22.4 % (42.0-52.0); Hemoglobin 7.4 g/dL (14.0-18.0); Immature Granulocyte Percent A 5.4 % (0-0.5); Lymphocytes Absolute Auto 1.47 K/mm3 (0.9-3.2); Lymphocytes Percent Auto 6.1 % (18.3-44.2); Mean Corpuscular Hemoglobin 28.1 pg (26-34); Mean Corpuscular Volume 85.2 fl (80-100); Mean Platelet Volume 9.9 fl (7.4-10.4); Monocytes Absolute Auto 1.2 K/mm3 (0.1-0.6); Monocytes Percent Auto 5.1 % (2.6-8.5); Neutrophils Absolute Auto 19.5 K/mm3 (1.3-6.7); Neutrophils Percent Auto 81.3 % (45.5-73.1); Nucleated Red Blood Cells Perc 0.2 % (0.0-0.2); Platelet Count Result 307 k/mm3 (150-375); Red Blood Count 2.63 M/mm3 (4.6-6.20)
[2024-05-20 04:34] LABS: Alanine Aminotransferase 40 U/L (6-50); Albumin Level 3.2 g/dL (3.5-5.1); Alkaline Phosphatase 107 U/L (38-126); Anion Gap 11 mmol/L (4-12); Aspartate Amino Transferase 41 U/L (17-59); Bilirubin,Total 0.7 mg/dL (0.2-1.3); Calcium 7.3 mg/dL (8.4-10.2); Carbon Dioxide 18 mmol/L (22-30); Chloride 111 mmol/L (98-107); Estimated CRCL calculation 11 ml/min; Estimated Glomerular Filt Rate 11; Glucose 138 mg/dL (65-110); Magnesium 2.1 mg/dL (1.6-2.3); Potassium 2.8 mmol/L (3.4-5.0); Sodium 140 mmol/L (137-145)
[2024-05-20 04:58] LABS: Platelet Estimate Adequate (Adequate)
[2024-05-20 04:59] LABS: Blood Urea Nitrogen 123 mg/dL (9-20); Hypochromasia 1+; Ovalocytes 1+; Schistocytes None Seen
[2024-05-20] MEDS: SODIUM CHLOR 3% 15 ML NEB (RESPIRATORY THERAPY) 6 ML INHALATION (05:14)
[2024-05-20] MEDS: SUCRALFATE SUSP 100 MG/ML 10 ML UDC 1000 MG PO ×3 (06:14→16:45)
[2024-05-20] MEDS: LEVOTHYROXINE SODIUM 75 MCG TABLET PO (06:14)
[2024-05-20] MEDS: POTASSIUM CHLORIDE 20 MEQ ER TABLET 60 MEQ PO (06:14)
[2024-05-20] MEDS: FLUTICASONE/UMECLIDIN/VILANTER 100-62.5-25 MCG ELLIPTA 1 PUFF INHALATION (07:19)
[2024-05-20 07:57] LABS: Glucose Point of Care 145 mg/dl (65-105)
[2024-05-20] MEDS: guaiFENesin 12 HR 600 MG TABCR 1200 MG PO ×2 (09:30→21:06)
[2024-05-20] MEDS: carvediloL 12.5 MG TABLET PO ×2 (09:31→21:06)
[2024-05-20] MEDS: amLODIPine BESYLATE 10 MG TABLET PO (09:31)
[2024-05-20] MEDS: SODIUM BICARBONATE TAB 650 MG TABLET 1300 MG PO ×2 (09:32→17:47)
[2024-05-20] MEDS: ROSUVASTATIN 20 MG TABLET 40 MG PO (09:32)
[2024-05-20] MEDS: cefTRIAXone 2 GM/NS 100 ML 2 GM/100 ML BAG IVPB (09:33)
[2024-05-20] MEDS: EPOETIN ALFA-EPBX 10,000 UNITS/ML VIAL 10000 UNITS SUB-Q (09:34)
[2024-05-20] MEDS: PANTOPRAZOLE SODIUM IV 40 MG VIAL IV PUSH ×2 (09:35→21:01)
--- NOTE | 2024-05-20 10:29 | PCSTNOTE ---
Please refer to the Bedside Swallow Evaluation in the EMR. Please note, silent aspiration cannot be ruled out at bedside.
--- NOTE | 2024-05-20 10:58 | P.PNNP_ITS ---
Progress Note: A&P Assessment and Plan (1) Acute kidney injury: Code(s): N17.9 - Acute kidney failure, unspecified Status: Acute Assessment and Plan: * slow improvement noted * as noted on admission with a creatinine of 4.4mg/dl * unfortunately, only recent labs to compare to are from 2019 (see #2) * evaluation to date noted: * admission CT scan without obstruction * urine electrolytes prerenal * urine eosinophils negative * UA with blood and moderate proteinuria * CPK mildly elevated (probably not enough to affect kidney function) * suspect insult due several issues: * hemodynamic instability/shock * sepsis/infection (bacteremia) * prerenal factors * diuretic therapy [employer] * profound hypoxia * good/reasonable urine output noted * continue to follow repeat labs and UOP (2) Stage 3a chronic kidney disease: Code(s): N18.31 - Chronic kidney disease, stage 3a Status: Chronic Assessment and Plan: * last creatinine noted at 1.4mg/dl (although this was from 2019) * presumably due to HTN, vascular disease (LE vascular disease, carotid stenosis, AAA, hyperlipidemia), diabetes, COPD/CJ and age-related change * cannot discount an element of CKD progression. (3) Septic shock: Code(s): A41.9 - Sepsis, unspecified organism; R65.21 - Severe sepsis with septic shock Status: Acute Assessment and Plan: * improving if not resolving * thought to be secondary to pneumonia and possibly UTI * s/p aggressive IVF resuscitation * off vasopressor therapy at this time * follow culture data - 05/11 blood cultures with Streptococcus pneumoniae * urine culture negative * repeat blood cultures are negative * on antibiotics (4) Acute respiratory failure: Code(s): J96.00 - Acute respiratory failure, unspecified whether with hypoxia or hypercapnia Status: Acute Assessment and Plan: * due to severe/significant pneumonia as noted by admission imaging * no respiratory distress but noted profound hypoxia on admission * complicated by known history of COPD * off BiPAP except for sleeping and is on nasal cannula at 4 L per minute during the day * continue bronchodilators and antibiotic therapy * Echo results noted * follow respiratory status (5) Systolic CHF: Code(s): I50.20 - Unspecified systolic (congestive) heart failure Status: Acute Assessment and Plan: * acute versus chronic? * Echo results noted: * left ventricular systolic function is moderately globally reduced - estimated at 35-40% * left ventricular diastolic function is grade I diastolic dysfunction * mild aortic valve sclerosis * trace mitral valve regurgitation * volume status appears stable * Cardiology following (6) Multifocal pneumonia: Code(s): J18.9 - Pneumonia, unspecified organism Status: Acute Assessment and Plan: * as noted by admission imaging * continue respiratory support * culture data noted * on antibiotics (7) Anemia: Qualifiers: Anemia type: unspecified type Qualified Code(s): D64.9 - Anemia, unspecified Code(s): D64.9 - Anemia, unspecified Status: Acute Assessment and Plan: * due to LEIA, CKD, and acute illness * HOWEVER, he noted black stools which are guaiac positive * PRBC transfusion per protocol * on PPI * GI following * possible EGD soon? * plavix on hold * on Retacrit while inpatient * follow trend of H/H (8) Chronic obstructive pulmonary disease: Qualifiers: COPD type: emphysema Emphysema type: unspecified Qualified Code(s): J43.9 - Emphysema, unspecified Code(s): J44.9 - Chronic obstructive pulmonary disease, unspecified Status: Chronic Assessment and Plan: * known history * see #4 (9) Type 2 diabetes mellitus: Code(s): E11.9 - Type 2 diabetes mellitus without complications Status: Acute Assessment and Plan: * follow accu-cheks * glycemic control per hospitalists Will continue to follow. Subjective Date/time seen: 05/20/24 10:58 Interval history: Follow-up for acute kidney injury/acute renal failure on chronic kidney disease. Renal function/creatinine as well as BUN continue to slowly improve in association with reasonable urine output; breathing/respiratory status also seems to be stabilizing; no apparent distress noted at the time of my visit. Exam Narrative: General: elderly but WD/WN male in NAD Heart: normal S1 and S2; no rub Lungs: coarse breath sound but no wheezes Abdomen: soft, nontender, nondistended, positive bowel sounds Extremities: no cyanosis, clubing or edema Skin: warm and intact Objective Data Vital Signs Vital Signs: Vital Signs Temp Pulse Resp BP Pulse Ox O2 Del Method O2 Flow Rate 05/20/24 10:28 97.5 F L 72 20 119/51 L 93 05/20/24 08:00 91 05/20/24 08:00 95 Nasal Cannula 4 05/20/24 09:31 83 05/20/24 07:31 98.7 F 78 20 155/68 H 100 05/20/24 07:32 74 20 05/20/24 07:20 74 20 05/20/24 07:20 92 Nasal Cannula 4 05/20/24 06:00 70 05/20/24 04:00 72 05/20/24 05:14 77 05/20/24 04:00 108 H 22 H 93 Nasal Cannula 4 05/20/24 03:57 98.4 F 108 H 22 H 119/44 L 93 05/20/24 02:31 70 20 05/20/24 02:24 68 20 05/20/24 01:49 68 05/20/24 00:00 62 05/20/24 00:00 97.7 F 69 20 149/61 H 92 05/19/24 23:41 57 L 24 H 93 Nasal Cannula 4 05/19/24 22:00 63 05/19/24 20:00 66 05/19/24 20:33 68 20 05/19/24 20:33 95 Nasal Cannula 5 05/19/24 20:33 68 32 H 95 BiPAP 05/19/24 20:16 71 05/19/24 20:00 97.8 F 68 20 124/42 L 99 05/19/24 19:41 57 L 24 H 93 Nasal Cannula 4 05/19/24 16:00 97.4 F L 64 24 H 125/49 L 93 05/19/24 18:00 57 L 05/19/24 16:00 94 Nasal Cannula 4 05/19/24 16:00 66 Intake/Output Intake/Output: Intake & Output 05/17/24 05/18/24 05/19/24 05/20/24 23:59 23:59 23:59 23:59 Intake Total 1650 1100 1420 1340 Output Total 1776 3345 1750 900 Balance -305 -1695 -520 440 Meds/Results Medications: Active Medications Generic Name Dose Route Start Last Admin Trade Name Freq PRN Reason Stop Dose Admin Acetaminophen 650 mg 05/11/24 18:35 05/12/24 08:08 Acetaminophen 325 Mg Tablet PO 650 mg Q4H PRN Administration Mild Pain (1-3) or Fever Acetylcysteine 200 mg 05/17/24 20:00 05/20/24 13:32 Acetylcysteine 20% Inhal Soln 800 Mg/4 Ml Vial INHALATION 200 mg Q6HRT SANGEETA Administration Albuterol/Ipratropium 3 ml 05/12/24 02:00 05/20/24 13:32 Ipratropium 0.5 Mg/Albuterol Sulfate 2.5 Mg Ampul.Neb 3 Ml INHALATION 3 ml Q6HRT SANGEETA Administration Amlodipine Besylate 10 mg 05/16/24 09:00 05/20/24 09:31 Amlodipine Besylate 10 Mg Tablet PO 10 mg DAILY SANGEETA Administration Aspirin 81 mg 05/12/24 09:00 05/16/24 09:04 Aspirin 81 Mg Enteric Tablet PO 81 mg DAILY SANGEETA Administration Carvedilol 12.5 mg 05/16/24 09:00 05/20/24 09:31 Carvedilol 12.5 Mg Tablet PO 12.5 mg Q12HR SANGEETA Administration Clopidogrel Bisulfate 75 mg 05/12/24 09:00 05/16/24 09:04 Clopidogrel Bisulfate 75 Mg Tablet PO 75 mg DAILY SANGEETA Administration Dextrose 12.5 gm 05/11/24 22:22 Dextrose 50% 25 Gm/50 Ml Syringe IV PUSH PRN PRN Hypoglycemia Protocol Epoetin Shimon-epbx 10,000 units 05/17/24 09:00 05/20/24 09:34 Epoetin Shimon-Epbx 10,000 Units/Ml Vial SUB-Q 10,000 units TUTHSA@09 SANGEETA Administration Famotidine 20 mg 05/14/24 09:00 05/16/24 09:00 Famotidine 20 Mg/2 Ml Vial IV PUSH 20 mg DAILY SANGEETA Administration Fluticasone/Umeclidinium/Vilanterol 1 puff 05/12/24 08:00 05/20/24 07:19 Fluticasone/Umeclidin/Vilanter 100-62.5-25 Mcg Ellipta INHALATION 1 puff DAILYRT SANGEETA Administration Glucagon 1 mg 05/11/24 22:22 Glucagon For Inj 1 Mg Vial IM PRN PRN Hypoglycemia Protocol Glucose 15 gm 05/11/24 22:22 Glucose Oral Gel 15 Gm Of Glucse In 37.5 Gm Tube PO PRN PRN Hypoglycemia Protocol Guaifenesin 1,200 mg 05/12/24 09:00 05/20/24 09:30 Guaifenesin 12 Hr 600 Mg Tabcr PO 1,200 mg Q12HR SANGEETA Administration Heparin Sodium (Porcine) 5,000 units 05/12/24 09:00 05/16/24 09:02 Heparin Sodium 5,000 Units/Ml Vial SUB-Q 5,000 units Q12HR SANGEETA Administration Hydralazine HCl 10 mg 05/15/24 17:22 05/16/24 00:13 Hydralazine Hcl 20 Mg/Ml Vial IV PUSH 10 mg Q6H PRN Administration Blood Pressure - High Hydrocortisone Sodium Succinate 50 mg 05/17/24 11:45 05/17/24 13:22 Hydrocortisone Sodium Succinate 100 Mg/2 Ml Vial IV PUSH Not Given Q8H SANGEETA Dextrose 1,000 mls @ 100 mls/hr 05/11/24 22:22 Dextrose 5% 1,000 Ml IVPB PRN PRN Hypoglycemia Protocol Meropenem 500 mg in 100 mls @ 200 mls/hr 05/20/24 12:00 IVPB Q12HR [facility] Insulin Aspart 4 - 8 units 05/15/24 21:00 05/20/24 09:24 Insulin Aspart (*Bkc) 100 Units/Ml SUB-Q Not Given 0800,1200,1700,2100 [facility] Protocol Levothyroxine Sodium 75 mcg 05/12/24 06:30 05/20/24 06:14 Levothyroxine Sodium 75 Mcg Tablet PO 75 mcg DAILY@0630 [facility] Administration Ondansetron HCl 4 mg 05/11/24 18:35 05/17/24 00:55 Ondansetron Inj 4 Mg/2 Ml Vial IV PUSH 4 mg Q4H PRN Administration Nausea Pantoprazole Sodium 40 mg 05/16/24 21:00 05/20/24 09:35 Pantoprazole Sodium Iv 40 Mg Vial IV PUSH 40 mg Q12HR SANGEETA Administration Rosuvastatin Calcium 40 mg 05/12/24 09:00 05/20/24 09:32 Rosuvastatin 20 Mg Tablet PO 40 mg DAILY SANGEETA Administration Sodium Bicarbonate 1,300 mg 05/17/24 12:05 05/20/24 09:32 Sodium Bicarbonate Tab 650 Mg Tablet PO 1,300 mg BID SANGEETA Administration Sucralfate 1,000 mg 05/17/24 16:30 05/20/24 06:14 Sucralfate Susp 100 Mg/Ml 10 Ml Udc PO 1,000 mg TIDAC SANGEETA Administration Radiology Results: ITS Impressions Chest/Abdomen/Pelvis CT 05/11/24 18:29 IMPRESSION: Extensive right upper lobe, middle lobe and left lower lobe consolidating pneumonia, with mild mediastinal reactive lymph node enlargement Occasional pulmonary nodules, likely related to pulmonary granulomatous disease 29 x 31 mm left adrenal low-attenuation mass, likely due to adrenal adenoma, less likely metastasis Normal appendix Minimal sigmoid diverticulosis; no evidence of diverticulitis Moderate prostatomegaly 2. Fusiform infrarenal abdominal aortic aneurysms, measuring up to 4 cm Central venous right common femoral catheter in right common femoral vein Renal Ultrasound 05/12/24 15:15 IMPRESSION: Unremarkable renal sonogram findings. Carotid Doppler Study 05/12/24 15:34 IMPRESSION: 1. <50% stenosis in the right internal carotid artery. 2. 50-69% stenosis in the left internal carotid artery. Chest X-Ray 05/18/24 09:09 IMPRESSION: 1. Airspace opacities in right upper lobe and left lower lobe with worsening on the left, consistent with pneumonia. Labs Labs: Laboratory Tests 05/20/24 03:31 05/20/24 03:31 Calcium 7.3 L Magnesium 2.1 Total Bilirubin 0.7 AST 41 ALT 40 Alkaline Phosphatase 107 Total Protein 6.0 L Albumin 3.2 L Nasal MRSA (PCR) Microbiology 05/18/24 06:23 Sputum Sputum Culture - Final
[2024-05-20 11:53] LABS: Glucose Point of Care 158 mg/dl (65-105)
--- NOTE | 2024-05-20 14:15 | PM.IMPN ---
Progress Note: A&P Assessment and Plan (1) Acute respiratory failure: Code(s): J96.00 - Acute respiratory failure, unspecified whether with hypoxia or hypercapnia Status: Acute Assessment and Plan: Patient has baseline COPD and now presented with pneumonia and hypoxic respiratory failure. Initially needed Airvo/non-rebreather mask because of hypoxia. Trial of BiPAP started in ICU. Chest x-ray and ABG reviewed Currently on oxygen via nasal cannula Continue bronchodilators antibiotics and steroid Stopped [facility] [place] Pulmonary team consulted will slowly taper off BiPAP. (2) Septic shock: Code(s): A41.9 - Sepsis, unspecified organism; R65.21 - Severe sepsis with septic shock Status: Acute Assessment and Plan: Septic shock secondary to pneumonia and UTI Patient has received IV fluid bolus and is now on maintenance IV fluids. Cautious IV fluids to minimize risk of volume overload Off pressors Continue Hydrocortisone for pneumonia 05/11: Blood cultures growing Streptococcus pneumonia 2/2 bottles, pansensitive 05/12: Urine culture NO growth -05/14: Discontinued vancomycin and cefepime -05/14: Started patient ceftriaxone, continue oral doxycycline - urine Legionella and pneumococcal antigen pending Lactic acid has normalized Finished course of doxycycline. continue ceftraixone. discussed with ID pharmacist regarding antibiotics WBC count worsened. Will panculture again. Speech therapy to see did well on bedside. Will get MBS to evaluate Will up titrate antibiotics to meropenem 05/20/2024. 05/12/2024: Echocardiogram Summary 1. Technically suboptimal study due to poor sonographic images. 2. Definity contrast administered improved wall motion interpretation. 3. Left ventricular chamber dimension is mildly enlarged. 4. Left ventricular systolic function is moderately globally reduced, estimated at 35-40%. 5. There is mild concentric increased left ventricular wall thickness. 6. The left ventricular diastolic function is grade I diastolic dysfunction. 7. Left atrial chamber dimension is mildly enlarged. 8. There is mild aortic valve sclerosis. 9. There is trace mitral valve regurgitation. (3) Multifocal pneumonia: Code(s): J18.9 - Pneumonia, unspecified organism Status: Acute Assessment and Plan: See above Repeat chest x-ray 05/17/2024 with right upper lobe collapse/consolidation. Added Mucomyst Recheck and monitor Pulmonary consultation Escalated antibiotics to meropenem. WBC count worsening (4) Acute kidney injury: Code(s): N17.9 - Acute kidney failure, unspecified Status: Acute Assessment and Plan: He presented with creatinine of 4.4. Baseline unknown as last recorded creatinine is from 2019 Creatinine continues to increase however with improved urine output now creatinine trended down. Nephrology following (5) Type 2 diabetes mellitus: Code(s): E11.9 - Type 2 diabetes mellitus without complications Status: Acute Assessment and Plan: Sliding scale insulin Continue diabetic diet and heart healthy diet (6) Hypothyroidism: Code(s): E03.9 - Hypothyroidism, unspecified Status: Acute Assessment and Plan: Elevated TSH -continue levothyroxine (7) Elevated troponin: Code(s): R79.89 - Other specified abnormal findings of blood chemistry Status: Acute Assessment and Plan: Mildly elevated troponin in the setting of septic shock and acute kidney failure likely to monitor radiated ischemia. Patient denies any chest pain. -troponins trending down -Continue aspirin Plavix and rosuvastatin -echocardiogram as above (8) Chronic obstructive pulmonary disease: Qualifiers: COPD type: emphysema Emphysema type: unspecified Qualified Code(s): J43.9 - Emphysema, unspecified Code(s): J44.9 - Chronic obstructive pulmonary disease, unspecified Status: Chronic Assessment and Plan: Continue NIPPV, steroids, bronchodilators will slowly taper off noninvasive positive pressure ventilation (9) Electrolyte abnormality: Code(s): E87.8 - Other disorders of electrolyte and fluid balance, not elsewhere classified Status: Acute Assessment and Plan: Magnesium is normalized after replacement Replace potassium as needed (10) Anemia: Qualifiers: Anemia type: unspecified type Qualified Code(s): D64.9 - Anemia, unspecified Code(s): D64.9 - Anemia, unspecified Status: Acute Assessment and Plan: FOBT positive stool H&H dropping PPI started GI consult Hold aspirin Plavix and heparin subQ EGD contemplated when stable No plans of EGD as hemoglobin stable now Will advance diet as tolerated Plan DVT prophylaxis -subcutaneous heparin which will be held due to anemia Stress ulcer prophylaxis -Protonix Nutrition -heart healthy diet Code Status: Full code Subjective Date/time seen: 05/20/24 14:15 Interval history: No overnight events. He is more alert and oriented. Labs reviewed. Remains afebrile. Review of Systems Review of Systems: All systems reviewed & are unremarkable except as noted in HPI and below Exam Narrative: General: Pt is alert awake and in no significant distress Lungs/Chest: Air entry is decreased, few rales at bases. Cardiac: RRR. Normal S1 S2. No murmurs Circulation: Pedal pulses are intact and symmetrical. Abdomen: Normal bowel sounds. Soft. NT. ND. Extremities: No clubbing, cyanosis or edema. Warm : Garcia in place Neurologic: Follows commands. Moves all 4 extremities PERRL AO x3 Skin: No Rash Objective Data Vital Signs Vital Signs: Vital Signs - 24 hr 05/19/24 16:00 05/19/24 16:00 05/19/24 18:00 Temperature Pulse Rate 66 57 L Respiratory Rate Blood Pressure Pulse Oximetry 94 Oxygen Delivery Nasal Cannula Oxygen Flow Rate 4 Fraction of Inspired Oxygen 05/19/24 16:00 05/19/24 19:41 05/19/24 20:00 Temperature 97.4 F L 97.8 F Pulse Rate 64 57 L 68 Respiratory Rate 24 H 24 H 20 Blood Pressure 125/49 L 124/42 L Pulse Oximetry 93 93 99 Oxygen Delivery Nasal Cannula Oxygen Flow Rate 4 Fraction of Inspired Oxygen 05/19/24 20:16 05/19/24 20:33 05/19/24 20:33 Temperature Pulse Rate 71 68 Respiratory Rate 32 H Blood Pressure Pulse Oximetry 95 95 Oxygen Delivery BiPAP Nasal Cannula Oxygen Flow Rate 5 Fraction of Inspired Oxygen 05/19/24 20:33 05/19/24 20:00 05/19/24 22:00 Temperature Pulse Rate 68 66 63 Respiratory Rate 20 Blood Pressure Pulse Oximetry Oxygen Delivery Oxygen Flow Rate Fraction of Inspired Oxygen 05/19/24 23:41 05/20/24 00:00 05/20/24 00:00 Temperature 97.7 F Pulse Rate 57 L 69 62 Respiratory Rate 24 H 20 Blood Pressure 149/61 H Pulse Oximetry 93 92 Oxygen Delivery Nasal Cannula Oxygen Flow Rate 4 Fraction of Inspired Oxygen 05/20/24 01:49 05/20/24 02:24 05/20/24 02:31 Temperature Pulse Rate 68 68 70 Respiratory Rate 20 20 Blood Pressure Pulse Oximetry Oxygen Delivery Oxygen Flow Rate Fraction of Inspired Oxygen 05/20/24 03:57 05/20/24 04:00 05/20/24 05:14 Temperature 98.4 F Pulse Rate 108 H 108 H 77 Respiratory Rate 22 H 22 H Blood Pressure 119/44 L Pulse Oximetry 93 93 Oxygen Delivery Nasal Cannula Oxygen Flow Rate 4 Fraction of Inspired Oxygen 05/20/24 04:00 05/20/24 06:00 05/20/24 07:20 Temperature Pulse Rate 72 70 Respiratory Rate Blood Pressure Pulse Oximetry 92 Oxygen Delivery Nasal Cannula Oxygen Flow Rate 4 Fraction of Inspired Oxygen 05/20/24 07:20 05/20/24 07:32 05/20/24 07:31 Temperature 98.7 F Pulse Rate 74 74 78 Respiratory Rate 20 20 20 Blood Pressure 155/68 H Pulse Oximetry 100 Oxygen Delivery Oxygen Flow Rate Fraction of Inspired Oxygen 05/20/24 09:31 05/20/24 08:00 05/20/24 08:00 Temperature Pulse Rate 83 91 Respiratory Rate Blood Pressure Pulse Oximetry 95 Oxygen Delivery Nasal Cannula Oxygen Flow Rate 4 Fraction of Inspired Oxygen 95 05/20/24 11:28 05/20/24 13:32 05/20/24 13:46 Temperature 97.5 F L Pulse Rate 72 78 79 Respiratory Rate 20 20 20 Blood Pressure 119/51 L Pulse Oximetry 93 Oxygen Delivery Oxygen Flow Rate Fraction of Inspired Oxygen Intake/Output Intake/Output: Intake & Output 05/17/24 05/18/24 05/19/24 05/20/24 23:59 23:59 23:59 23:59 Intake Total 1650 1100 1420 1340 Output Total 1775 4085 1750 900 Balance -125 -1375 -330 440 Meds/Results Medications: Active Medications Generic Name Dose Route Start Last Admin Trade Name Freq PRN Reason Stop Dose Admin Acetaminophen 650 mg 05/11/24 18:35 05/12/24 08:08 Acetaminophen 325 Mg Tablet PO 650 mg Q4H PRN Administration Mild Pain (1-3) or Fever Acetylcysteine 200 mg 05/17/24 20:00 05/20/24 13:32 Acetylcysteine 20% Inhal Soln 800 Mg/4 Ml Vial INHALATION 200 mg Q6HRT SANGEETA Administration Albuterol/Ipratropium 3 ml 05/12/24 02:00 05/20/24 13:32 Ipratropium 0.5 Mg/Albuterol Sulfate 2.5 Mg Ampul.Neb 3 Ml INHALATION 3 ml Q6HRT SANGEETA Administration Amlodipine Besylate 10 mg 05/16/24 09:00 05/20/24 09:31 Amlodipine Besylate 10 Mg Tablet PO 10 mg DAILY SANGEETA Administration Aspirin 81 mg 05/12/24 09:00 05/16/24 09:04 Aspirin 81 Mg Enteric Tablet PO 81 mg DAILY SANGEETA Administration Carvedilol 12.5 mg 05/16/24 09:00 05/20/24 09:31 Carvedilol 12.5 Mg Tablet PO 12.5 mg Q12HR SANGEETA Administration Clopidogrel Bisulfate 75 mg 05/12/24 09:00 05/16/24 09:04 Clopidogrel Bisulfate 75 Mg Tablet PO 75 mg DAILY SANGEETA Administration Dextrose 12.5 gm 05/11/24 22:22 Dextrose 50% 25 Gm/50 Ml Syringe IV PUSH PRN PRN Hypoglycemia Protocol Epoetin Shimon-epbx 10,000 units 05/17/24 09:00 05/20/24 09:34 Epoetin Shimon-Epbx 10,000 Units/Ml Vial SUB-Q 10,000 units TUTA@09 SANGEETA Administration Famotidine 20 mg 05/14/24 09:00 05/16/24 09:00 Famotidine 20 Mg/2 Ml Vial IV PUSH 20 mg DAILY SANGEETA Administration Fluticasone/Umeclidinium/Vilanterol 1 puff 05/12/24 08:00 05/20/24 07:19 Fluticasone/Umeclidin/Vilanter 100-62.5-25 Mcg Ellipta INHALATION 1 puff DAILYRT SANGEETA Administration Glucagon 1 mg 05/11/24 22:22 Glucagon For Inj 1 Mg Vial IM PRN PRN Hypoglycemia Protocol Glucose 15 gm 05/11/24 22:22 Glucose Oral Gel 15 Gm Of Glucse In 37.5 Gm Tube PO PRN PRN Hypoglycemia Protocol Guaifenesin 1,200 mg 05/12/24 09:00 05/20/24 09:30 Guaifenesin 12 Hr 600 Mg Tabcr PO 1,200 mg Q12HR SANGEETA Administration Heparin Sodium (Porcine) 5,000 units 05/12/24 09:00 05/16/24 09:02 Heparin Sodium 5,000 Units/Ml Vial SUB-Q 5,000 units Q12HR SANGEETA Administration Hydralazine HCl 10 mg 05/15/24 17:22 05/16/24 00:13 Hydralazine Hcl 20 Mg/Ml Vial IV PUSH 10 mg Q6H PRN Administration Blood Pressure - High Hydrocortisone Sodium Succinate 50 mg 05/17/24 11:45 05/17/24 13:22 Hydrocortisone Sodium Succinate 100 Mg/2 Ml Vial IV PUSH Not Given Q8H SANGEETA Dextrose 1,000 mls @ 100 mls/hr 05/11/24 22:22 Dextrose 5% 1,000 Ml IVPB PRN PRN Hypoglycemia Protocol Meropenem 500 mg in 100 mls @ 200 mls/hr 05/20/24 12:00 IVPB Q12HR SANGEETA Insulin Aspart 4 - 8 units 05/15/24 21:00 05/20/24 09:24 Insulin Aspart (*Bkc) 100 Units/Ml SUB-Q Not Given 0800,1200,1700,2100 [facility] Protocol Levothyroxine Sodium 75 mcg 05/12/24 06:30 05/20/24 06:14 Levothyroxine Sodium 75 Mcg Tablet PO 75 mcg DAILY@0630 SANGEETA Administration Ondansetron HCl 4 mg 05/11/24 18:35 05/17/24 00:55 Ondansetron Inj 4 Mg/2 Ml Vial IV PUSH 4 mg Q4H PRN Administration Nausea Pantoprazole Sodium 40 mg 05/16/24 21:00 05/20/24 09:35 Pantoprazole Sodium Iv 40 Mg Vial IV PUSH 40 mg Q12HR SANGEETA Administration Rosuvastatin Calcium 40 mg 05/12/24 09:00 05/20/24 09:32 Rosuvastatin 20 Mg Tablet PO 40 mg DAILY SANGEETA Administration Sodium Bicarbonate 1,300 mg 05/17/24 12:05 05/20/24 09:32 Sodium Bicarbonate Tab 650 Mg Tablet PO 1,300 mg BID SANGEETA Administration Sucralfate 1,000 mg 05/17/24 16:30 05/20/24 06:14 Sucralfate Susp 100 Mg/Ml 10 Ml Udc PO 1,000 mg TIDAC SANGEETA Administration Radiology Results: ITS Impressions Chest/Abdomen/Pelvis CT 05/11/24 18:29 IMPRESSION: Extensive right upper lobe, middle lobe and left lower lobe consolidating pneumonia, with mild mediastinal reactive lymph node enlargement Occasional pulmonary nodules, likely related to pulmonary granulomatous disease 29 x 31 mm left adrenal low-attenuation mass, likely due to adrenal adenoma, less likely metastasis Normal appendix Minimal sigmoid diverticulosis; no evidence of diverticulitis Moderate prostatomegaly 2. Fusiform infrarenal abdominal aortic aneurysms, measuring up to 4 cm Central venous right common femoral catheter in right common femoral vein Renal Ultrasound 05/12/24 15:15 IMPRESSION: Unremarkable renal sonogram findings. Carotid Doppler Study 05/12/24 15:34 IMPRESSION: 1. <50% stenosis in the right internal carotid artery. 2. 50-69% stenosis in the left internal carotid artery. Chest X-Ray 05/18/24 09:09 IMPRESSION: 1. Airspace opacities in right upper lobe and left lower lobe with worsening on the left, consistent with pneumonia. Labs Labs: Laboratory Results - last 24 hr 05/19/24 05/19/24 05/20/24 16:01 20:46 03:31 WBC 24.0 H RBC 2.63 L Hgb 7.4 L Hct 22.4 L MCV 85.2 MCH 28.1 MCHC 33.0 RDW 14.0 Plt Count 307 MPV 9.9 Immature Gran % (Auto) 5.4 H Neut % (Auto) 81.3 H Lymph % (Auto) 6.1 L [place] % (Auto) 5.1 Eos % (Auto) 1.9 Baso % (Auto) 0.2 Lymph # (Auto) 1.47 [place] # (Auto) 1.2 H Eos # (Auto) 0.5 H Baso # (Auto) 0.1 Abs Immat Gran (auto) 1.30 H Absolute Neuts (auto) 19.5 H Absolute Nucleated RBC 0.050 H Nucleated RBC % 0.2 Platelet Estimate Adequate Hypochromasia 1+ Ovalocytes 1+ Schistocytes None seen Sodium 140 Potassium 2.8 L* Chloride 111 H Carbon Dioxide 18 L Anion Gap 11 BUN 123 H D Creatinine 5.10 H Estim Creat Clear Calc 11 Estimated GFR 11 L Glucose 138 H POC Capillary Glucose 227 H 184 H Calcium 7.3 L Magnesium 2.1 Total Bilirubin 0.7 AST 41 ALT 40 Alkaline Phosphatase 107 Total Protein 6.0 L Albumin 3.2 L 05/20/24 05/20/24 07:25 11:45 WBC RBC Hgb Hct MCV MCH MCHC RDW Plt Count MPV Immature Gran % (Auto) Neut % (Auto) Lymph % (Auto) [place] % (Auto) Eos % (Auto) Baso % (Auto) Lymph # (Auto) [place] # (Auto) Eos # (Auto) Baso # (Auto) Abs Immat Gran (auto) Absolute Neuts (auto) Absolute Nucleated RBC Nucleated RBC % Platelet Estimate Hypochromasia Ovalocytes Schistocytes Sodium Potassium Chloride Carbon Dioxide Anion Gap BUN Creatinine Estim Creat Clear Calc Estimated GFR Glucose POC Capillary Glucose 145 H 158 H Calcium Magnesium Total Bilirubin AST ALT Alkaline Phosphatase Total Protein Albumin
[2024-05-20 14:57] LABS: MRSA (PCR) NOT DETECTED (NOT DETECTE)
[2024-05-20] MEDS: MEROPENEM 500 MG/NS 100 ML 500 MG/100 ML BAG 200 MG IVPB ×2 (15:10→21:02)
[2024-05-20 15:53] LABS: Glucose Point of Care 200 mg/dl (65-105)
[2024-05-20] MEDS: INSULIN ASPART (*BKC) 100 UNITS/ML SUB-Q (17:47)
--- NOTE | 2024-05-20 18:06 | WPDGIPROGNO ---
Progress Note: A&P Assessment and Plan (1) Acute blood loss anemia: Code(s): D62 - Acute posthemorrhagic anemia Status: Acute Assessment and Plan: the patient is slowly recovering from he has severe pneumonia and sepsis, however he continues to have acute renal failure although creatinine is slowly improving. His hematocrit has remained stable over the past 4 days and there is no current melena as per my own rectal exam done yesterday afternoon. As discussed yesterday and also today with the patient and his , an EGD is indicated when he is more stable from the respiratory standpoint so he can be safely sedated. This will be done, hopefully, prior to his discharge from the hospital. In the meantime he should continue with PPIs and daily hematocrits. We will keep following him. Subjective Date/time seen: 05/20/24 18:06 Objective Data Vital Signs Vital Signs: Vital Signs - 24 hr 05/19/24 19:41 05/19/24 20:00 05/19/24 20:16 Temperature 97.8 F Pulse Rate 57 L 68 71 Respiratory Rate 24 H 20 Blood Pressure 124/42 L Pulse Oximetry 93 99 Oxygen Delivery Nasal Cannula Oxygen Flow Rate 4 Fraction of Inspired Oxygen 05/19/24 20:33 05/19/24 20:33 05/19/24 20:33 Temperature Pulse Rate 68 68 Respiratory Rate 32 H 20 Blood Pressure Pulse Oximetry 95 95 Oxygen Delivery BiPAP Nasal Cannula Oxygen Flow Rate 5 Fraction of Inspired Oxygen 05/19/24 20:00 05/19/24 22:00 05/19/24 23:41 Temperature Pulse Rate 66 63 57 L Respiratory Rate 24 H Blood Pressure Pulse Oximetry 93 Oxygen Delivery Nasal Cannula Oxygen Flow Rate 4 Fraction of Inspired Oxygen 05/20/24 00:00 05/20/24 00:00 05/20/24 01:49 Temperature 97.7 F Pulse Rate 69 62 68 Respiratory Rate 20 Blood Pressure 149/61 H Pulse Oximetry 92 Oxygen Delivery Oxygen Flow Rate Fraction of Inspired Oxygen 05/20/24 02:24 05/20/24 02:31 05/20/24 03:57 Temperature 98.4 F Pulse Rate 68 70 108 H Respiratory Rate 20 20 22 H Blood Pressure 119/44 L Pulse Oximetry 93 Oxygen Delivery Oxygen Flow Rate Fraction of Inspired Oxygen 05/20/24 04:00 05/20/24 05:14 05/20/24 04:00 Temperature Pulse Rate 108 H 77 72 Respiratory Rate 22 H Blood Pressure Pulse Oximetry 93 Oxygen Delivery Nasal Cannula Oxygen Flow Rate 4 Fraction of Inspired Oxygen 05/20/24 06:00 05/20/24 07:20 05/20/24 07:20 Temperature Pulse Rate 70 74 Respiratory Rate 20 Blood Pressure Pulse Oximetry 92 Oxygen Delivery Nasal Cannula Oxygen Flow Rate 4 Fraction of Inspired Oxygen 05/20/24 07:32 05/20/24 07:31 05/20/24 09:31 Temperature 98.7 F Pulse Rate 74 78 83 Respiratory Rate 20 20 Blood Pressure 155/68 H Pulse Oximetry 100 Oxygen Delivery Oxygen Flow Rate Fraction of Inspired Oxygen 05/20/24 08:00 05/20/24 08:00 05/20/24 11:28 Temperature 97.5 F L Pulse Rate 91 72 Respiratory Rate 20 Blood Pressure 119/51 L Pulse Oximetry 95 93 Oxygen Delivery Nasal Cannula Oxygen Flow Rate 4 Fraction of Inspired Oxygen 95 05/20/24 13:32 05/20/24 13:46 05/20/24 10:00 Temperature Pulse Rate 78 79 72 Respiratory Rate 20 20 Blood Pressure Pulse Oximetry Oxygen Delivery Oxygen Flow Rate Fraction of Inspired Oxygen 05/20/24 12:00 05/20/24 12:00 05/20/24 15:20 Temperature 97.5 F L Pulse Rate 79 71 Respiratory Rate 18 Blood Pressure 115/46 L Pulse Oximetry 95 98 Oxygen Delivery Nasal Cannula Oxygen Flow Rate 3 Fraction of Inspired Oxygen 94 05/20/24 14:00 05/20/24 16:00 05/20/24 16:00 Temperature Pulse Rate 71 77 Respiratory Rate Blood Pressure Pulse Oximetry 95 Oxygen Delivery Nasal Cannula Oxygen Flow Rate 2 Fraction of Inspired Oxygen 92 05/20/24 17:59 Temperature Pulse Rate 67 Respiratory Rate Blood Pressure Pulse Oximetry Oxygen Delivery Oxygen Flow Rate Fraction of Inspired Oxygen Intake/Output Intake/Output: Intake & Output 05/17/24 05/18/24 05/19/24 05/20/24 23:59 23:59 23:59 23:59 Intake Total 1650 1100 1420 3000 Output Total 1775 2475 1750 1700 [facility] -125 -1375 -330 1300 Meds/Results Medications: Active Medications Generic Name Dose Route Start Last Admin Trade Name Freq PRN Reason Stop Dose Admin Acetaminophen 650 mg 05/11/24 18:35 05/12/24 08:08 Acetaminophen 325 Mg Tablet PO 650 mg Q4H PRN Administration Mild Pain (1-3) or Fever Acetylcysteine 200 mg 05/17/24 20:00 05/20/24 13:32 Acetylcysteine 20% Inhal Soln 800 Mg/4 Ml Vial INHALATION 200 mg Q6HRT SANGEETA Administration Albuterol/Ipratropium 3 ml 05/12/24 02:00 05/20/24 13:32 Ipratropium 0.5 Mg/Albuterol Sulfate 2.5 Mg Ampul.Neb 3 Ml INHALATION 3 ml Q6HRT SANGEETA Administration Amlodipine Besylate 10 mg 05/16/24 09:00 05/20/24 09:31 Amlodipine Besylate 10 Mg Tablet PO 10 mg DAILY SANGEETA Administration Aspirin 81 mg 05/12/24 09:00 05/16/24 09:04 Aspirin 81 Mg Enteric Tablet PO 81 mg DAILY SANGEETA Administration Carvedilol 12.5 mg 05/16/24 09:00 05/20/24 09:31 Carvedilol 12.5 Mg Tablet PO 12.5 mg Q12HR SANGEETA Administration Clopidogrel Bisulfate 75 mg 05/12/24 09:00 05/16/24 09:04 Clopidogrel Bisulfate 75 Mg Tablet PO 75 mg DAILY SANGEETA Administration Dextrose 12.5 gm 05/11/24 22:22 Dextrose 50% 25 Gm/50 Ml Syringe IV PUSH PRN PRN Hypoglycemia Protocol Epoetin Shimon-epbx 10,000 units 05/17/24 09:00 05/20/24 09:34 Epoetin Shimon-Epbx 10,000 Units/Ml Vial SUB-Q 10,000 units TUTHSA@09 SANGEETA Administration Famotidine 20 mg 05/14/24 09:00 05/16/24 09:00 Famotidine 20 Mg/2 Ml Vial IV PUSH 20 mg DAILY SANGEETA Administration Fluticasone/Umeclidinium/Vilanterol 1 puff 05/12/24 08:00 05/20/24 07:19 Fluticasone/Umeclidin/Vilanter 100-62.5-25 Mcg Ellipta INHALATION 1 puff DAILYRT SANGEETA Administration Glucagon 1 mg 05/11/24 22:22 Glucagon For Inj 1 Mg Vial IM PRN PRN Hypoglycemia Protocol Glucose 15 gm 05/11/24 22:22 Glucose Oral Gel 15 Gm Of Glucse In 37.5 Gm Tube PO PRN PRN Hypoglycemia Protocol Guaifenesin 1,200 mg 05/12/24 09:00 05/20/24 09:30 Guaifenesin 12 Hr 600 Mg Tabcr PO 1,200 mg Q12HR SANGEETA Administration Heparin Sodium (Porcine) 5,000 units 05/12/24 09:00 05/16/24 09:02 Heparin Sodium 5,000 Units/Ml Vial SUB-Q 5,000 units Q12HR SANGEETA Administration Hydralazine HCl 10 mg 05/15/24 17:22 05/16/24 00:13 Hydralazine Hcl 20 Mg/Ml Vial IV PUSH 10 mg Q6H PRN Administration Blood Pressure - High Dextrose 1,000 mls @ 100 mls/hr 05/11/24 22:22 Dextrose 5% 1,000 Ml IVPB PRN PRN Hypoglycemia Protocol Meropenem 500 mg in 100 mls @ 200 mls/hr 05/20/24 12:00 05/20/24 15:10 IVPB 200 mls/hr Q12HR SANGEETA Administration Insulin Aspart 4 - 8 units 05/15/24 21:00 05/20/24 17:47 Insulin Aspart (*Bkc) 100 Units/Ml SUB-Q 4 units 0800,1200,1700,2100 SANGEETA Administration Protocol Levothyroxine Sodium 75 mcg 05/12/24 06:30 05/20/24 06:14 Levothyroxine Sodium 75 Mcg Tablet PO 75 mcg DAILY@0630 SANGEETA Administration Ondansetron HCl 4 mg 05/11/24 18:35 05/17/24 00:55 Ondansetron Inj 4 Mg/2 Ml Vial IV PUSH 4 mg Q4H PRN Administration Nausea Pantoprazole Sodium 40 mg 05/16/24 21:00 05/20/24 09:35 Pantoprazole Sodium Iv 40 Mg Vial IV PUSH 40 mg Q12HR SANGEETA Administration Rosuvastatin Calcium 40 mg 05/12/24 09:00 05/20/24 09:32 Rosuvastatin 20 Mg Tablet PO 40 mg DAILY SANGEETA Administration Sodium Bicarbonate 1,300 mg 05/17/24 12:05 05/20/24 17:47 Sodium Bicarbonate Tab 650 Mg Tablet PO 1,300 mg BID SANGEETA Administration Sucralfate 1,000 mg 05/17/24 16:30 05/20/24 16:45 Sucralfate Susp 100 Mg/Ml 10 Ml Udc PO 1,000 mg TIDAC SANGEETA Administration Radiology Results: ITS Impressions Chest/Abdomen/Pelvis CT 05/11/24 18:29 IMPRESSION: Extensive right upper lobe, middle lobe and left lower lobe consolidating pneumonia, with mild mediastinal reactive lymph node enlargement Occasional pulmonary nodules, likely related to pulmonary granulomatous disease 29 x 31 mm left adrenal low-attenuation mass, likely due to adrenal adenoma, less likely metastasis Normal appendix Minimal sigmoid diverticulosis; no evidence of diverticulitis Moderate prostatomegaly 2. Fusiform infrarenal abdominal aortic aneurysms, measuring up to 4 cm Central venous right common femoral catheter in right common femoral vein Renal Ultrasound 05/12/24 15:15 IMPRESSION: Unremarkable renal sonogram findings. Carotid Doppler Study 05/12/24 15:34 IMPRESSION: 1. <50% stenosis in the right internal carotid artery. 2. 50-69% stenosis in the left internal carotid artery. Chest X-Ray 05/18/24 09:09 IMPRESSION: 1. Airspace opacities in right upper lobe and left lower lobe with worsening on the left, consistent with pneumonia. Modified Barium Swallow 05/20/24 14:24 IMPRESSION: 1. Normal modified barium swallow. 2. Please refer to the speech therapy report for recommendations. Labs Labs: Laboratory Results - last 24 hr 05/19/24 05/20/24 05/20/24 20:46 03:31 07:25 WBC 24.0 H RBC 2.63 L Hgb 7.4 L Hct 22.4 L MCV 85.2 MCH 28.1 MCHC 33.0 RDW 14.0 Plt Count 307 MPV 9.9 Immature Gran % (Auto) 5.4 H Neut % (Auto) 81.3 H Lymph % (Auto) 6.1 L [place] % (Auto) 5.1 Eos % (Auto) 1.9 Baso % (Auto) 0.2 Lymph # (Auto) 1.47 [place] # (Auto) 1.2 H Eos # (Auto) 0.5 H Baso # (Auto) 0.1 Abs Immat Gran (auto) 1.30 H Absolute Neuts (auto) 19.5 H Absolute Nucleated RBC 0.050 H Nucleated RBC % 0.2 Platelet Estimate Adequate Hypochromasia 1+ Ovalocytes 1+ Schistocytes None seen Sodium 140 Potassium 2.8 L* Chloride 111 H Carbon Dioxide 18 L Anion Gap 11 BUN 123 H D Creatinine 5.10 H Estim Creat Clear Calc 11 Estimated GFR 11 L Glucose 138 H POC Capillary Glucose 184 H 145 H Calcium 7.3 L Magnesium 2.1 Total Bilirubin 0.7 AST 41 ALT 40 Alkaline Phosphatase 107 Total Protein 6.0 L Albumin 3.2 L Nasal MRSA (PCR) 05/20/24 05/20/24 05/20/24 11:45 13:04 15:23 WBC RBC Hgb Hct MCV MCH MCHC RDW Plt Count MPV Immature Gran % (Auto) Neut % (Auto) Lymph % (Auto) [place] % (Auto) Eos % (Auto) Baso % (Auto) Lymph # (Auto) [place] # (Auto) Eos # (Auto) Baso # (Auto) Abs Immat Gran (auto) Absolute Neuts (auto) Absolute Nucleated RBC Nucleated RBC % Platelet Estimate Hypochromasia Ovalocytes Schistocytes Sodium Potassium Chloride Carbon Dioxide Anion Gap BUN Creatinine Estim Creat Clear Calc Estimated GFR Glucose POC Capillary Glucose 158 H 200 H Calcium Magnesium Total Bilirubin AST ALT Alkaline Phosphatase Total Protein Albumin Nasal MRSA (PCR) Not detected
[2024-05-20 21:06] LABS: Glucose Point of Care 142 mg/dl (65-105)
[2024-05-21] VITALS (28 sets, daily range): BP systolic 112–141; BP diastolic 43–61; PULSE 51–74; RESP 14–20; TEMP 36.4–36.6; O2SAT 90–99
[2024-05-21] MEDS: ACETYLCYSTEINE 20% INHAL SOLN 800 MG/4 ML VIAL 200 MG INHALATION ×4 (02:20→21:04)
[2024-05-21] MEDS: IPRATROPIUM 0.5 MG/ALBUTEROL SULFATE 2.5 MG AMPUL.NEB 3 ML INHALATION ×4 (02:20→21:05)
[2024-05-21 04:59] LABS: Basophils Percent Auto 0.1 % (0.2-1.2); Eosinophils Absolute Auto 0.5 K/mm3 (0-0.3); Eosinophils Percent Auto 2.2 % (0-4.4); Hematocrit 21.2 % (42.0-52.0); Immature Granulocyte Absolute 0.99 K/mm3 (0.00-0.031); Immature Granulocyte Percent A 4.7 % (0-0.5); Lymphocytes Percent Auto 5.7 % (18.3-44.2); Mean Corpuscular Hemoglobin 28.6 pg (26-34); Mean Corpuscular Volume 86.5 fl (80-100); Mean Platelet Volume 9.8 fl (7.4-10.4); Monocytes Absolute Auto 1.3 K/mm3 (0.1-0.6); Monocytes Percent Auto 6.4 % (2.6-8.5); Neutrophils Absolute Auto 16.9 K/mm3 (1.3-6.7); Neutrophils Percent Auto 80.9 % (45.5-73.1); Nucleated Red Blood Cells Perc 0.1 % (0.0-0.2); Platelet Count Result 301 k/mm3 (150-375); Red Blood Count 2.45 M/mm3 (4.6-6.20); Red Cell Distribution Width 14.4 % (11.5-14.5); White Blood Count 20.9 K/mm3 (4.5-10.0)
[2024-05-21 05:17] LABS: Alanine Aminotransferase 39 U/L (6-50); Albumin Level 2.9 g/dL (3.5-5.1); Alkaline Phosphatase 110 U/L (38-126); Anion Gap 8 mmol/L (4-12); Aspartate Amino Transferase 34 U/L (17-59); Bilirubin,Total 0.4 mg/dL (0.2-1.3); Blood Urea Nitrogen 105 mg/dL (9-20); Calcium 7.2 mg/dL (8.4-10.2); Carbon Dioxide 21 mmol/L (22-30); Chloride 113 mmol/L (98-107); Estimated CRCL calculation 13 ml/min; Estimated Glomerular Filt Rate 14; Glucose 122 mg/dL (65-110); Potassium 3.2 mmol/L (3.4-5.0); Sodium 142 mmol/L (137-145)
[2024-05-21 05:20] LABS: Platelet Estimate Adequate (Adequate)
[2024-05-21 05:21] LABS: Anisocytosis 1+; Ovalocytes 1+; Schistocytes None Seen
[2024-05-21] MEDS: LEVOTHYROXINE SODIUM 75 MCG TABLET PO (05:50)
[2024-05-21] MEDS: SUCRALFATE SUSP 100 MG/ML 10 ML UDC 1000 MG PO ×3 (05:50→16:30)
[2024-05-21] MEDS: POTASSIUM CHLORIDE 20 MEQ ER TABLET 40 MEQ PO ×2 (05:52→09:14)
[2024-05-21] MEDS: FLUTICASONE/UMECLIDIN/VILANTER 100-62.5-25 MCG ELLIPTA 1 PUFF INHALATION (07:18)
[2024-05-21 07:46] LABS: Glucose Point of Care 120 mg/dl (65-105)
[2024-05-21] MEDS: guaiFENesin 12 HR 600 MG TABCR 1200 MG PO ×2 (09:13→21:48)
[2024-05-21] MEDS: SODIUM BICARBONATE TAB 650 MG TABLET 1300 MG PO ×2 (09:15→18:11)
[2024-05-21] MEDS: carvediloL 12.5 MG TABLET PO ×2 (09:16→21:48)
[2024-05-21] MEDS: amLODIPine BESYLATE 10 MG TABLET PO (09:16)
[2024-05-21] MEDS: ACETAMINOPHEN 325 MG TABLET 650 MG PO (09:16)
[2024-05-21] MEDS: ROSUVASTATIN 20 MG TABLET 40 MG PO (09:17)
[2024-05-21] MEDS: MEROPENEM 500 MG/NS 100 ML 500 MG/100 ML BAG 200 MG IVPB ×2 (10:47→21:49)
[2024-05-21] MEDS: PANTOPRAZOLE SODIUM IV 40 MG VIAL IV PUSH ×2 (10:47→21:51)
[2024-05-21 11:47] LABS: Glucose Point of Care 172 mg/dl (65-105)
--- NOTE | 2024-05-21 12:30 | P.PNNP_ITS ---
Progress Note: A&P Assessment and Plan (1) Acute kidney injury: Code(s): N17.9 - Acute kidney failure, unspecified Status: Acute Assessment and Plan: * slow improvement noted * as noted on admission with a creatinine of 4.4mg/dl * unfortunately, only recent labs to compare to are from 2019 (see #2) * evaluation to date noted: * admission CT scan without obstruction * urine electrolytes prerenal * urine eosinophils negative * UA with blood and moderate proteinuria * CPK mildly elevated (probably not enough to affect kidney function) * suspect insult due several issues: * hemodynamic instability/shock * sepsis/infection (bacteremia) * prerenal factors * diuretic therapy [employer] * profound hypoxia * good/reasonable urine output noted * continue to follow repeat labs and UOP (2) Stage 3a chronic kidney disease: Code(s): N18.31 - Chronic kidney disease, stage 3a Status: Chronic Assessment and Plan: * last creatinine noted at 1.4mg/dl (although this was from 2019) * presumably due to HTN, vascular disease (LE vascular disease, carotid stenosis, AAA, hyperlipidemia), diabetes, COPD/CJ and age-related change * cannot discount an element of CKD progression. (3) Septic shock: Code(s): A41.9 - Sepsis, unspecified organism; R65.21 - Severe sepsis with septic shock Status: Acute Assessment and Plan: * improving if not resolving * thought to be secondary to pneumonia and possibly UTI * s/p aggressive IVF resuscitation * off vasopressor therapy at this time * follow culture data - 05/11 blood cultures with Streptococcus pneumoniae * urine culture negative * repeat blood cultures are negative * on antibiotics (4) Acute respiratory failure: Code(s): J96.00 - Acute respiratory failure, unspecified whether with hypoxia or hypercapnia Status: Acute Assessment and Plan: * due to severe/significant pneumonia as noted by admission imaging * no respiratory distress but noted profound hypoxia on admission * complicated by known history of COPD * off BiPAP except for sleeping and is on nasal cannula at 4 L per minute during the day * continue bronchodilators and antibiotic therapy * Echo results noted * follow respiratory status (5) Systolic CHF: Code(s): I50.20 - Unspecified systolic (congestive) heart failure Status: Acute Assessment and Plan: * acute versus chronic? * Echo results noted: * left ventricular systolic function is moderately globally reduced - estimated at 35-40% * left ventricular diastolic function is grade I diastolic dysfunction * mild aortic valve sclerosis * trace mitral valve regurgitation * volume status appears stable * Cardiology following (6) Multifocal pneumonia: Code(s): J18.9 - Pneumonia, unspecified organism Status: Acute Assessment and Plan: * as noted by admission imaging * continue respiratory support * culture data noted * on antibiotics (7) Anemia: Qualifiers: Anemia type: unspecified type Qualified Code(s): D64.9 - Anemia, unspecified Code(s): D64.9 - Anemia, unspecified Status: Acute Assessment and Plan: * due to LEIA, CKD, and acute illness * HOWEVER, he noted black stools which are guaiac positive * PRBC transfusion per protocol * on PPI * GI following * possible EGD soon? * plavix on hold * on Retacrit while inpatient * follow trend of H/H (8) Chronic obstructive pulmonary disease: Qualifiers: COPD type: emphysema Emphysema type: unspecified Qualified Code(s): J43.9 - Emphysema, unspecified Code(s): J44.9 - Chronic obstructive pulmonary disease, unspecified Status: Chronic Assessment and Plan: * known history * see #4 (9) Type 2 diabetes mellitus: Code(s): E11.9 - Type 2 diabetes mellitus without complications Status: Acute Assessment and Plan: * follow accu-cheks * glycemic control per hospitalists Will continue to follow intermittently. Subjective Date/time seen: 05/21/24 12:30 Interval history: Follow-up for acute kidney injury/acute renal failure on chronic kidney disease. No apparent distress voiced at the time of my visit; reports some stool inconti nence and diarrhea but denies chest pain or shortness of breath; renal function/creatinine/BUN continue to improve with good urine output noted. Exam Narrative: General: elderly but WD/WN male in NAD Heart: normal S1 and S2; no rub Lungs: coarse breath sound but no wheezes Abdomen: soft, nontender, nondistended, positive bowel sounds Extremities: no cyanosis, clubbing or edema Skin: no rash Objective Data Vital Signs Vital Signs: Vital Signs Temp Pulse Resp BP Pulse Ox O2 Del Method O2 Flow Rate 05/21/24 12:00 58 L 05/21/24 12:00 92 Room Air 05/21/24 11:17 97.7 F 62 20 112/47 L 95 12/04/24 10:00 64 05/21/24 08:00 74 05/21/24 08:00 93 Room Air 05/21/24 09:16 68 05/21/24 08:17 90 Room Air 05/21/24 07:27 71 20 05/21/24 07:13 70 20 05/21/24 07:13 97 Nasal Cannula 2 05/21/24 07:17 97.5 F L 67 18 129/61 97 05/21/24 06:00 51 L 05/21/24 04:00 69 05/21/24 04:00 60 18 95 Nasal Cannula 2 05/21/24 03:40 97.7 F 60 18 126/50 L 95 05/21/24 02:30 65 20 05/21/24 02:20 73 20 05/21/24 02:00 52 L 05/21/24 00:41 97.8 F 61 18 118/44 L 95 05/21/24 00:00 64 05/21/24 00:00 69 14 95 Nasal Cannula 2 05/20/24 22:48 69 05/20/24 21:30 69 14 95 BiPAP 05/20/24 20:00 72 05/20/24 21:06 69 05/20/24 20:41 71 20 05/20/24 20:34 94 Nasal Cannula 2 05/20/24 20:32 73 20 05/20/24 20:00 67 18 96 Nasal Cannula 2 05/20/24 20:26 97.7 F 67 18 137/53 L 96 05/20/24 17:59 67 Intake/Output Intake/Output: Intake & Output 05/18/24 05/19/24 05/20/24 05/21/24 23:59 23:59 23:59 23:59 Intake Total 1100 1420 3200 1830 Output Total 2475 1750 1700 1552 Balance -1375 -330 1500 278 Meds/Results Medications: Active Medications Generic Name Dose Route Start Last Admin Trade Name Freq PRN Reason Stop Dose Admin Acetaminophen 650 mg 05/11/24 18:35 05/21/24 09:16 Acetaminophen 325 Mg Tablet PO 650 mg Q4H PRN Administration Mild Pain (1-3) or Fever Acetylcysteine 200 mg 05/17/24 20:00 05/21/24 13:11 Acetylcysteine 20% Inhal Soln 800 Mg/4 Ml Vial INHALATION 200 mg Q6HRT SANGEETA Administration Albuterol/Ipratropium 3 ml 05/12/24 02:00 05/21/24 13:10 Ipratropium 0.5 Mg/Albuterol Sulfate 2.5 Mg Ampul.Neb 3 Ml INHALATION 3 ml Q6HRT SANGEETA Administration Amlodipine Besylate 10 mg 05/16/24 09:00 05/21/24 09:16 Amlodipine Besylate 10 Mg Tablet PO 10 mg DAILY SANGEETA Administration Aspirin 81 mg 05/12/24 09:00 05/16/24 09:04 Aspirin 81 Mg Enteric Tablet PO 81 mg DAILY SANGEETA Administration Carvedilol 12.5 mg 05/16/24 09:00 05/21/24 09:16 Carvedilol 12.5 Mg Tablet PO 12.5 mg Q12HR SANGEETA Administration Clopidogrel Bisulfate 75 mg 05/12/24 09:00 05/16/24 09:04 Clopidogrel Bisulfate 75 Mg Tablet PO 75 mg DAILY SANGEETA Administration Dextrose 12.5 gm 05/11/24 22:22 Dextrose 50% 25 Gm/50 Ml Syringe IV PUSH PRN PRN Hypoglycemia Protocol Epoetin Shimon-epbx 10,000 units 05/17/24 09:00 05/20/24 09:34 Epoetin Shimon-Epbx 10,000 Units/Ml Vial SUB-Q 10,000 units TUTHSA@09 SANGEETA Administration Famotidine 20 mg 05/14/24 09:00 05/16/24 09:00 Famotidine 20 Mg/2 Ml Vial IV PUSH 20 mg DAILY SANGEETA Administration Fluticasone/Umeclidinium/Vilanterol 1 puff 05/12/24 08:00 05/21/24 07:18 Fluticasone/Umeclidin/Vilanter 100-62.5-25 Mcg Ellipta INHALATION 1 puff DAILYRT SANGEETA Administration Glucagon 1 mg 05/11/24 22:22 Glucagon For Inj 1 Mg Vial IM PRN PRN Hypoglycemia Protocol Glucose 15 gm 05/11/24 22:22 Glucose Oral Gel 15 Gm Of Glucse In 37.5 Gm Tube PO PRN PRN Hypoglycemia Protocol Guaifenesin 1,200 mg 05/12/24 09:00 05/21/24 09:13 Guaifenesin 12 Hr 600 Mg Tabcr PO 1,200 mg Q12HR SANGEETA Administration Heparin Sodium (Porcine) 5,000 units 05/12/24 09:00 05/16/24 09:02 Heparin Sodium 5,000 Units/Ml Vial SUB-Q 5,000 units Q12HR SANGEETA Administration Hydralazine HCl 10 mg 05/15/24 17:22 05/16/24 00:13 Hydralazine Hcl 20 Mg/Ml Vial IV PUSH 10 mg Q6H PRN Administration Blood Pressure - High Dextrose 1,000 mls @ 100 mls/hr 05/11/24 22:22 Dextrose 5% 1,000 Ml IVPB PRN PRN Hypoglycemia Protocol Meropenem 500 mg in 100 mls @ 200 mls/hr 05/20/24 12:00 05/21/24 10:47 IVPB 200 mls/hr Q12HR SANGEETA Administration Insulin Aspart 4 - 8 units 05/15/24 21:00 05/21/24 09:11 Insulin Aspart (*Bkc) 100 Units/Ml SUB-Q Not Given 0800,1200,1700,2100 [facility] Protocol Levothyroxine Sodium 75 mcg 05/12/24 06:30 05/21/24 05:50 Levothyroxine Sodium 75 Mcg Tablet PO 75 mcg DAILY@0630 ASNGEETA Administration Ondansetron HCl 4 mg 05/11/24 18:35 05/17/24 00:55 Ondansetron Inj 4 Mg/2 Ml Vial IV PUSH 4 mg Q4H PRN Administration Nausea Pantoprazole Sodium 40 mg 05/16/24 21:00 05/21/24 10:47 Pantoprazole Sodium Iv 40 Mg Vial IV PUSH 40 mg Q12HR SANGEETA Administration Rosuvastatin Calcium 40 mg 05/12/24 09:00 05/21/24 09:17 Rosuvastatin 20 Mg Tablet PO 40 mg DAILY SANGEETA Administration Sodium Bicarbonate 1,300 mg 05/17/24 12:05 05/21/24 09:15 Sodium Bicarbonate Tab 650 Mg Tablet PO 1,300 mg BID SANGEETA Administration Sucralfate 1,000 mg 05/17/24 16:30 05/21/24 10:48 Sucralfate Susp 100 Mg/Ml 10 Ml Udc PO 1,000 mg TIDAC SANGEETA Administration Radiology Results: ITS Impressions Chest/Abdomen/Pelvis CT 05/11/24 18:29 IMPRESSION: Extensive right upper lobe, middle lobe and left lower lobe consolidating pneumonia, with mild mediastinal reactive lymph node enlargement Occasional pulmonary nodules, likely related to pulmonary granulomatous disease 29 x 31 mm left adrenal low-attenuation mass, likely due to adrenal adenoma, less likely metastasis Normal appendix Minimal sigmoid diverticulosis; no evidence of diverticulitis Moderate prostatomegaly 2. Fusiform infrarenal abdominal aortic aneurysms, measuring up to 4 cm Central venous right common femoral catheter in right common femoral vein Renal Ultrasound 05/12/24 15:15 IMPRESSION: Unremarkable renal sonogram findings. Carotid Doppler Study 05/12/24 15:34 IMPRESSION: 1. <50% stenosis in the right internal carotid artery. 2. 50-69% stenosis in the left internal carotid artery. Chest X-Ray 05/18/24 09:09 IMPRESSION: 1. Airspace opacities in right upper lobe and left lower lobe with worsening on the left, consistent with pneumonia. Modified Barium Swallow 05/20/24 14:24 IMPRESSION: 1. Normal modified barium swallow. 2. Please refer to the speech therapy report for recommendations. Labs Labs: Laboratory Tests 05/21/24 04:39 05/21/24 04:39 WBC 20.9 H Hgb 7.0 L Hct 21.2 L Plt Count 301 Calcium 7.2 L Magnesium 2.0 Total Bilirubin 0.4 AST 34 ALT 39 Alkaline Phosphatase 110 Total Protein 6.0 L Albumin 2.9 L Microbiology 05/20/24 08:52 Blood Blood Culture - Preliminary 05/20/24 08:42 Blood Blood Culture - Preliminary
--- NOTE | 2024-05-21 13:38 | P.PNIM_ITS ---
Progress Note: A&P Assessment and Plan (1) Acute respiratory failure: Code(s): J96.00 - Acute respiratory failure, unspecified whether with hypoxia or hypercapnia Status: Acute Assessment and Plan: Patient has baseline COPD and now presented with pneumonia and hypoxic respiratory failure. Initially needed Airvo/non-rebreather mask because of hypoxia. Trial of BiPAP started in ICU. Chest x-ray (05/18) showing airspace opacities in the right upper lobe and left lower lobe was worsening on the left. Weaned to room air. Solu-Cortef stopped. Continue bronchodilators Pulmonary consulted and apprecaite their input (2) Septic shock: Code(s): A41.9 - Sepsis, unspecified organism; R65.21 - Severe sepsis with septic shock Status: Acute Assessment and Plan: Septic shock secondary to pneumonia and UTI Patient received IV fluid bolus and started on pressors. Cautious IV fluids were given. Able to be weaned off pressors Hydrocortisone also started for pneumonia but now off. 05/11: Blood cultures growing Streptococcus pneumonia 07/20 bottles, pansensitive 05/12: Urine culture NO growth 05/13: BCx negative. 05/14: Discontinued vancomycin and cefepime. Started ceftriaxone, continue oral doxycycline Urine Legionella Ag negative. Urine pneumococcal antigen positive. Lactic acid has normalized but WBC climbing over the past few days. Finished a course of doxycycline. Provider discussed with ID pharmacist regarding antibiotics Repeat cultures ordered. Rocephin changed to meropenem 05/20. MBS was okay. WBC better, follow (3) Multifocal pneumonia: Code(s): J18.9 - Pneumonia, unspecified organism Status: Acute Assessment and Plan: See above Repeat chest x-ray as above Pulmonary following Escalated antibiotics to meropenem. WBC count better today (4) Acute kidney injury: Code(s): N17.9 - Acute kidney failure, unspecified Status: Acute Assessment and Plan: Baseline Cr unclear since last Cr was 1.4 in 2019. Creatinine of 4.4 and climbed to 7. Bun up to 165 but had been on steroids. Nephrology following and appreciate their input. Renal US unremarkable Cr better at 4.3 and BUN at 105. UOP 1700mL yesterday and 1550mL already today. Continue to follow (5) Elevated troponin: Code(s): R79.89 - Other specified abnormal findings of blood chemistry Status: Acute Assessment and Plan: Mildly elevated troponin in the setting of septic shock and LEIA likely demand ischemia. Patient denies any chest pain. Troponin trending down 04/2524 Echo: LV dimension is mildly enlarged, LV systolic fxn moderately, globally reduced (EF 35-40%), mild concentric LVH, Grade I diastolic dysfunction, LAE and trace valvular disease. Continue Coreg. No DENIS, Entresto with renal failure. Following (6) Anemia: Qualifiers: Anemia type: unspecified type Qualified Code(s): D64.9 - Anemia, unspecified Code(s): D64.9 - Anemia, unspecified Status: Acute Assessment and Plan: Hgb 12.2 on admission but dropped to 6.5 on 05/17. FOBT positive stool Holding ASA, plavix and Heparin SQ Received 1U PRBCs on 05/17. PPI started GI consulted and EGD contemplated when stable Apprecaite GI input. Monitor HH closely and transfuse as needed. (7) Type 2 diabetes mellitus: Code(s): E11.9 - Type 2 diabetes mellitus without complications Status: Acute Assessment and Plan: The patient's blood glucose was reviewed on 05/21 Glucose remains well controlled. Continue AccuCheks covering with sliding scale. Hypoglycemia protocol available as needed. Continue current medications. (8) Chronic obstructive pulmonary disease: Qualifiers: COPD type: emphysema Emphysema type: unspecified Qualified Code(s): J43.9 - Emphysema, unspecified Code(s): J44.9 - Chronic obstructive pulmonary disease, unspecified Status: Chronic Assessment and Plan: As above (9) Hypothyroidism: Code(s): E03.9 - Hypothyroidism, unspecified Status: Acute Assessment and Plan: Elevated TSH -continue levothyroxine Plan Left sided weakness - check CT malena. DVT prophylaxis - SCDs Code Status: Full code Subjective Date/time seen: 05/21/24 13:38 Interval history: 74yo male with COPD, HTN, HLD, DM and PAD here for weakness and syncope. Assuming care. Chart reviewed. Patient denies chest pain or shortness of breath. No abdominal pain. No nausea vomiting. He is having stool incontinence with diarrhea x2 yesterday. Exam Narrative: AF 97.7 112/47 58 20 93% RA Gen - thin, pale appearing male in NARD Chest - CTA bilaterally, nml RR CV - RRR S1/S2. Tele showing no significant dysrhythmias Abd - Soft, NT/ND, Positive BS - Garcia secured draining clear yellow urine Ext - No pedal edema Neuro - Alert and appropriate. slight less sided weakness Psych - Nml mood and affect Skin - Warm and dry Objective Data Vital Signs Vital Signs: Vital Signs - 24 hr 05/20/24 13:46 05/20/24 15:20 05/20/24 14:00 Temperature 97.5 F L Pulse Rate 79 71 71 Respiratory Rate 20 18 Blood Pressure 115/46 L Pulse Oximetry 98 Oxygen Delivery Oxygen Flow Rate Fraction of Inspired Oxygen 05/20/24 16:00 05/20/24 16:00 05/20/24 17:59 Temperature Pulse Rate 77 67 Respiratory Rate Blood Pressure Pulse Oximetry 95 Oxygen Delivery Nasal Cannula Oxygen Flow Rate 2 Fraction of Inspired Oxygen 92 05/20/24 20:26 05/20/24 20:00 05/20/24 20:32 Temperature 97.7 F Pulse Rate 67 67 73 Respiratory Rate 18 18 20 Blood Pressure 137/53 L Pulse Oximetry 96 96 Oxygen Delivery Nasal Cannula Oxygen Flow Rate 2 Fraction of Inspired Oxygen 05/20/24 20:34 05/20/24 20:41 05/20/24 21:06 Temperature Pulse Rate 71 69 Respiratory Rate 20 Blood Pressure Pulse Oximetry 94 Oxygen Delivery Nasal Cannula Oxygen Flow Rate 2 Fraction of Inspired Oxygen 05/20/24 20:00 05/20/24 21:30 05/20/24 22:48 Temperature Pulse Rate 72 69 69 Respiratory Rate 14 Blood Pressure Pulse Oximetry 95 Oxygen Delivery BiPAP Oxygen Flow Rate Fraction of Inspired Oxygen 05/21/24 00:00 05/21/24 00:00 05/21/24 00:41 Temperature 97.8 F Pulse Rate 69 64 61 Respiratory Rate 14 18 Blood Pressure 118/44 L Pulse Oximetry 95 95 Oxygen Delivery Nasal Cannula Oxygen Flow Rate 2 Fraction of Inspired Oxygen 05/21/24 02:00 05/21/24 02:20 05/21/24 02:30 Temperature Pulse Rate 52 L 73 65 Respiratory Rate 20 20 Blood Pressure Pulse Oximetry Oxygen Delivery Oxygen Flow Rate Fraction of Inspired Oxygen 05/21/24 03:40 05/21/24 04:00 05/21/24 04:00 Temperature 97.7 F Pulse Rate 60 60 69 Respiratory Rate 18 18 Blood Pressure 126/50 L Pulse Oximetry 95 95 Oxygen Delivery Nasal Cannula Oxygen Flow Rate 2 Fraction of Inspired Oxygen 05/21/24 06:00 05/21/24 07:17 05/21/24 07:13 Temperature 97.5 F L Pulse Rate 51 L 67 Respiratory Rate 18 Blood Pressure 129/61 Pulse Oximetry 97 97 Oxygen Delivery Nasal Cannula Oxygen Flow Rate 2 Fraction of Inspired Oxygen 28 05/21/24 07:13 05/21/24 07:27 05/21/24 08:17 Temperature Pulse Rate 70 71 Respiratory Rate 20 20 Blood Pressure Pulse Oximetry 90 Oxygen Delivery Room Air Oxygen Flow Rate Fraction of Inspired Oxygen 21 05/21/24 09:16 05/21/24 08:00 05/21/24 08:00 Temperature Pulse Rate 68 74 Respiratory Rate Blood Pressure Pulse Oximetry 93 Oxygen Delivery Room Air Oxygen Flow Rate Fraction of Inspired Oxygen 05/21/24 10:00 05/21/24 11:17 05/21/24 13:10 Temperature 97.7 F Pulse Rate 64 62 Respiratory Rate 20 Blood Pressure 112/47 L Pulse Oximetry 95 93 Oxygen Delivery Room Air Oxygen Flow Rate Fraction of Inspired Oxygen 21 05/21/24 13:10 05/21/24 12:00 05/21/24 12:00 Temperature Pulse Rate 58 L 58 L Respiratory Rate 20 Blood Pressure Pulse Oximetry 92 Oxygen Delivery Room Air Oxygen Flow Rate Fraction of Inspired Oxygen Intake/Output Intake/Output: Intake & Output 05/18/24 05/19/24 05/20/24 05/21/24 23:59 23:59 23:59 23:59 Intake Total 1100 1420 3200 1830 Output Total 2475 1750 1700 1552 Balance -1375 -330 1500 278 Meds/Results Medications: Active Medications Generic Name Dose Route Start Last Admin Trade Name Freq PRN Reason Stop Dose Admin Acetaminophen 650 mg 05/11/24 18:35 05/21/24 09:16 Acetaminophen 325 Mg Tablet PO 650 mg Q4H PRN Administration Mild Pain (1-3) or Fever Acetylcysteine 200 mg 05/17/24 20:00 05/21/24 13:11 Acetylcysteine 20% Inhal Soln 800 Mg/4 Ml Vial INHALATION 200 mg Q6HRT SANGEETA Administration Albuterol/Ipratropium 3 ml 05/12/24 02:00 05/21/24 13:10 Ipratropium 0.5 Mg/Albuterol Sulfate 2.5 Mg Ampul.Neb 3 Ml INHALATION 3 ml Q6HRT SANGEETA Administration Amlodipine Besylate 10 mg 05/16/24 09:00 05/21/24 09:16 Amlodipine Besylate 10 Mg Tablet PO 10 mg DAILY SANGEETA Administration Aspirin 81 mg 05/12/24 09:00 05/16/24 09:04 Aspirin 81 Mg Enteric Tablet PO 81 mg DAILY SANGEETA Administration Carvedilol 12.5 mg 05/16/24 09:00 05/21/24 09:16 Carvedilol 12.5 Mg Tablet PO 12.5 mg Q12HR SANGEETA Administration Clopidogrel Bisulfate 75 mg 05/12/24 09:00 05/16/24 09:04 Clopidogrel Bisulfate 75 Mg Tablet PO 75 mg DAILY SANGEETA Administration Dextrose 12.5 gm 05/11/24 22:22 Dextrose 50% 25 Gm/50 Ml Syringe IV PUSH PRN PRN Hypoglycemia Protocol Epoetin Shimon-epbx 10,000 units 05/17/24 09:00 05/20/24 09:34 Epoetin Shimon-Epbx 10,000 Units/Ml Vial SUB-Q 10,000 units TUTA@09 SANGEETA Administration Famotidine 20 mg 05/14/24 09:00 05/16/24 09:00 Famotidine 20 Mg/2 Ml Vial IV PUSH 20 mg DAILY SANGEETA Administration Fluticasone/Umeclidinium/Vilanterol 1 puff 05/12/24 08:00 05/21/24 07:18 Fluticasone/Umeclidin/Vilanter 100-62.5-25 Mcg Ellipta INHALATION 1 puff DAILYRT SANGEETA Administration Glucagon 1 mg 05/11/24 22:22 Glucagon For Inj 1 Mg Vial IM PRN PRN Hypoglycemia Protocol Glucose 15 gm 05/11/24 22:22 Glucose Oral Gel 15 Gm Of Glucse In 37.5 Gm Tube PO PRN PRN Hypoglycemia Protocol Guaifenesin 1,200 mg 05/12/24 09:00 05/21/24 09:13 Guaifenesin 12 Hr 600 Mg Tabcr PO 1,200 mg Q12HR SANGEETA Administration Heparin Sodium (Porcine) 5,000 units 05/12/24 09:00 05/16/24 09:02 Heparin Sodium 5,000 Units/Ml Vial SUB-Q 5,000 units Q12HR SANGEETA Administration Hydralazine HCl 10 mg 05/15/24 17:22 05/16/24 00:13 Hydralazine Hcl 20 Mg/Ml Vial IV PUSH 10 mg Q6H PRN Administration Blood Pressure - High Dextrose 1,000 mls @ 100 mls/hr 05/11/24 22:22 Dextrose 5% 1,000 Ml IVPB PRN PRN Hypoglycemia Protocol Meropenem 500 mg in 100 mls @ 200 mls/hr 05/20/24 12:00 05/21/24 10:47 IVPB 200 mls/hr Q12HR SANGEETA Administration Insulin Aspart 4 - 8 units 05/15/24 21:00 05/21/24 09:11 Insulin Aspart (*Bkc) 100 Units/Ml SUB-Q Not Given 0800,1200,1700,2100 [facility] Protocol Levothyroxine Sodium 75 mcg 05/12/24 06:30 05/21/24 05:50 Levothyroxine Sodium 75 Mcg Tablet PO 75 mcg DAILY@0630 SANGEETA Administration Ondansetron HCl 4 mg 05/11/24 18:35 05/17/24 00:55 Ondansetron Inj 4 Mg/2 Ml Vial IV PUSH 4 mg Q4H PRN Administration Nausea Pantoprazole Sodium 40 mg 05/16/24 21:00 05/21/24 10:47 Pantoprazole Sodium Iv 40 Mg Vial IV PUSH 40 mg Q12HR SANGEETA Administration Rosuvastatin Calcium 40 mg 05/12/24 09:00 05/21/24 09:17 Rosuvastatin 20 Mg Tablet PO 40 mg DAILY SANGEETA Administration Sodium Bicarbonate 1,300 mg 05/17/24 12:05 05/21/24 09:15 Sodium Bicarbonate Tab 650 Mg Tablet PO 1,300 mg BID SANGEETA Administration Sucralfate 1,000 mg 05/17/24 16:30 05/21/24 10:48 Sucralfate Susp 100 Mg/Ml 10 Ml Udc PO 1,000 mg TIDAC SANGEETA Administration Radiology Results: ITS Impressions Chest/Abdomen/Pelvis CT 05/11/24 18:29 IMPRESSION: Extensive right upper lobe, middle lobe and left lower lobe consolidating pneumonia, with mild mediastinal reactive lymph node enlargement Occasional pulmonary nodules, likely related to pulmonary granulomatous disease 29 x 31 mm left adrenal low-attenuation mass, likely due to adrenal adenoma, less likely metastasis Normal appendix Minimal sigmoid diverticulosis; no evidence of diverticulitis Moderate prostatomegaly 2. Fusiform infrarenal abdominal aortic aneurysms, measuring up to 4 cm Central venous right common femoral catheter in right common femoral vein Renal Ultrasound 05/12/24 15:15 IMPRESSION: Unremarkable renal sonogram findings. Carotid Doppler Study 05/12/24 15:34 IMPRESSION: 1. <50% stenosis in the right internal carotid artery. 2. 50-69% stenosis in the left internal carotid artery. Chest X-Ray 05/18/24 09:09 IMPRESSION: 1. Airspace opacities in right upper lobe and left lower lobe with worsening on the left, consistent with pneumonia. Modified Barium Swallow 05/20/24 14:24 IMPRESSION: 1. Normal modified barium swallow. 2. Please refer to the speech therapy report for recommendations. Labs Labs: Laboratory Results - last 24 hr 05/12/24 05/20/24 05/20/24 01:13 13:04 15:23 WBC RBC Hgb Hct MCV MCH MCHC RDW Plt Count MPV Immature Gran % (Auto) Neut % (Auto) Lymph % (Auto) [place] % (Auto) Eos % (Auto) Baso % (Auto) Lymph # (Auto) [place] # (Auto) Eos # (Auto) Baso # (Auto) Abs Immat Gran (auto) Absolute Neuts (auto) Absolute Nucleated RBC Nucleated RBC % Platelet Estimate Anisocytosis Ovalocytes Schistocytes Sodium Potassium Chloride Carbon Dioxide Anion Gap BUN Creatinine Estim Creat Clear Calc Estimated GFR Glucose POC Capillary Glucose 200 H Calcium Magnesium Total Bilirubin AST ALT Alkaline Phosphatase Total Protein Albumin Urine Osmolality TNP Ur Random Creatinine TNP U Random Chloride/Creat TNP Nasal MRSA (PCR) Not detected 05/20/24 05/21/24 05/21/24 21:04 04:39 07:16 WBC 20.9 H RBC 2.45 L Hgb 7.0 L Hct 21.2 L MCV 86.5 MCH 28.6 MCHC 33.0 RDW 14.4 Plt Count 301 MPV 9.8 Immature Gran % (Auto) 4.7 H Neut % (Auto) 80.9 H Lymph % (Auto) 5.7 L [place] % (Auto) 6.4 Eos % (Auto) 2.2 Baso % (Auto) 0.1 L Lymph # (Auto) 1.20 [place] # (Auto) 1.3 H Eos # (Auto) 0.5 H Baso # (Auto) 0.0 Abs Immat Gran (auto) 0.99 H Absolute Neuts (auto) 16.9 H Absolute Nucleated RBC 0.030 H Nucleated RBC % 0.1 Platelet Estimate Adequate Anisocytosis 1+ Ovalocytes 1+ Schistocytes None seen Sodium 142 Potassium 3.2 L Chloride 113 H Carbon Dioxide 21 L Anion Gap 8 BUN 105 H D Creatinine 4.30 H Estim Creat Clear Calc 13 Estimated GFR 14 L Glucose 122 H POC Capillary Glucose 142 H 120 H Calcium 7.2 L Magnesium 2.0 Total Bilirubin 0.4 AST 34 ALT 39 Alkaline Phosphatase 110 Total Protein 6.0 L Albumin 2.9 L Urine Osmolality Ur Random Creatinine U Random Chloride/Creat Nasal MRSA (PCR) 05/21/24 11:44 WBC RBC Hgb Hct MCV MCH MCHC RDW Plt Count MPV Immature Gran % (Auto) Neut % (Auto) Lymph % (Auto) [place] % (Auto) Eos % (Auto) Baso % (Auto) Lymph # (Auto) [place] # (Auto) Eos # (Auto) Baso # (Auto) Abs Immat Gran (auto) Absolute Neuts (auto) Absolute Nucleated RBC Nucleated RBC % Platelet Estimate Anisocytosis Ovalocytes Schistocytes Sodium Potassium Chloride Carbon Dioxide Anion Gap BUN Creatinine Estim Creat Clear Calc Estimated GFR Glucose POC Capillary Glucose 172 H Calcium Magnesium Total Bilirubin AST ALT Alkaline Phosphatase Total Protein Albumin Urine Osmolality Ur Random Creatinine U Random Chloride/Creat Nasal MRSA (PCR)
--- NOTE | 2024-05-21 14:01 | PC.NURSE ---
Left sided weakness noted by physical therapy today during ambulation. Pt was dragging left foot and having neglecting left arm. Left sided weakness noted and uneqal movements of extremities. Reported to Dr. Phillips. Will order CT head
[2024-05-21 14:58] LABS: Hematocrit 22.6 % (42.0-52.0); Hemoglobin 7.3 g/dL (14.0-18.0)
[2024-05-21 15:25] LABS: Glucose Point of Care 159 mg/dl (65-105)
--- NOTE | 2024-05-21 17:07 | WPDGIPROGNO ---
Progress Note: A&P Assessment and Plan (1) Acute blood loss anemia: Code(s): D62 - Acute posthemorrhagic anemia Status: Acute Assessment and Plan: Patient's respiratory status slowly improving, and creatinine slowly trending down favorably. However, he is still not in optimal conditions to tolerate general anesthesia for EGD. Will continue to follow him and, as stated before, please let us know when patient can be discharged home so we can do an EGD right before, unless there is an acute change his his current status and he develops melena and / or there is severe drop in hematocrit. Subjective Date/time seen: 05/21/24 17:07 Objective Data Vital Signs Vital Signs: Vital Signs - 24 hr 05/20/24 17:59 05/20/24 20:26 05/20/24 20:00 Temperature 97.7 F Pulse Rate 67 67 67 Respiratory Rate 18 18 Blood Pressure 137/53 L Pulse Oximetry 96 96 Oxygen Delivery Nasal Cannula Oxygen Flow Rate 2 Fraction of Inspired Oxygen 05/20/24 20:32 05/20/24 20:34 05/20/24 20:41 Temperature Pulse Rate 73 71 Respiratory Rate 20 20 Blood Pressure Pulse Oximetry 94 Oxygen Delivery Nasal Cannula Oxygen Flow Rate 2 Fraction of Inspired Oxygen 05/20/24 21:06 05/20/24 20:00 05/20/24 21:30 Temperature Pulse Rate 69 72 69 Respiratory Rate 14 Blood Pressure Pulse Oximetry 95 Oxygen Delivery BiPAP Oxygen Flow Rate Fraction of Inspired Oxygen 05/20/24 22:48 05/21/24 00:00 05/21/24 00:00 Temperature Pulse Rate 69 69 64 Respiratory Rate 14 Blood Pressure Pulse Oximetry 95 Oxygen Delivery Nasal Cannula Oxygen Flow Rate 2 Fraction of Inspired Oxygen 05/21/24 00:41 05/21/24 02:00 05/21/24 02:20 Temperature 97.8 F Pulse Rate 61 52 L 73 Respiratory Rate 18 20 Blood Pressure 118/44 L Pulse Oximetry 95 Oxygen Delivery Oxygen Flow Rate Fraction of Inspired Oxygen 05/21/24 02:30 05/21/24 03:40 05/21/24 04:00 Temperature 97.7 F Pulse Rate 65 60 60 Respiratory Rate 20 18 18 Blood Pressure 126/50 L Pulse Oximetry 95 95 Oxygen Delivery Nasal Cannula Oxygen Flow Rate 2 Fraction of Inspired Oxygen 05/21/24 04:00 05/21/24 06:00 05/21/24 07:17 Temperature 97.5 F L Pulse Rate 69 51 L 67 Respiratory Rate 18 Blood Pressure 129/61 Pulse Oximetry 97 Oxygen Delivery Oxygen Flow Rate Fraction of Inspired Oxygen 05/21/24 07:13 05/21/24 07:13 05/21/24 07:27 Temperature Pulse Rate 70 71 Respiratory Rate 20 20 Blood Pressure Pulse Oximetry 97 Oxygen Delivery Nasal Cannula Oxygen Flow Rate 2 Fraction of Inspired Oxygen 28 05/21/24 08:17 05/21/24 09:16 05/21/24 08:00 Temperature Pulse Rate 68 Respiratory Rate Blood Pressure Pulse Oximetry 90 93 Oxygen Delivery Room Air Room Air Oxygen Flow Rate Fraction of Inspired Oxygen 21 05/21/24 08:00 05/21/24 10:00 05/21/24 11:17 Temperature 97.7 F Pulse Rate 74 64 62 Respiratory Rate 20 Blood Pressure 112/47 L Pulse Oximetry 95 Oxygen Delivery Oxygen Flow Rate Fraction of Inspired Oxygen 05/21/24 13:10 05/21/24 13:10 05/21/24 12:00 Temperature Pulse Rate 58 L Respiratory Rate 20 Blood Pressure Pulse Oximetry 93 92 Oxygen Delivery Room Air Room Air Oxygen Flow Rate Fraction of Inspired Oxygen 21 05/21/24 12:00 05/21/24 15:46 05/21/24 14:00 Temperature 97.6 F Pulse Rate 58 L 60 68 Respiratory Rate 18 Blood Pressure 112/43 L Pulse Oximetry 93 Oxygen Delivery Oxygen Flow Rate Fraction of Inspired Oxygen 05/21/24 16:00 05/21/24 16:00 Temperature Pulse Rate 60 Respiratory Rate Blood Pressure Pulse Oximetry 92 Oxygen Delivery Room Air Oxygen Flow Rate Fraction of Inspired Oxygen Intake/Output Intake/Output: Intake & Output 05/18/24 05/19/24 05/20/24 05/21/24 23:59 23:59 23:59 23:59 Intake Total 1100 1420 3200 1830 Output Total 2475 1750 1700 1552 Balance -1375 -330 1500 278 Meds/Results Medications: Active Medications Generic Name Dose Route Start Last Admin Trade Name Freq PRN Reason Stop Dose Admin Acetaminophen 650 mg 05/11/24 18:35 05/21/24 09:16 Acetaminophen 325 Mg Tablet PO 650 mg Q4H PRN Administration Mild Pain (1-3) or Fever Acetylcysteine 200 mg 05/17/24 20:00 05/21/24 13:11 Acetylcysteine 20% Inhal Soln 800 Mg/4 Ml Vial INHALATION 200 mg Q6HRT SANGEETA Administration Albuterol/Ipratropium 3 ml 05/12/24 02:00 05/21/24 13:10 Ipratropium 0.5 Mg/Albuterol Sulfate 2.5 Mg Ampul.Neb 3 Ml INHALATION 3 ml Q6HRT SANGEETA Administration Amlodipine Besylate 10 mg 05/16/24 09:00 05/21/24 09:16 Amlodipine Besylate 10 Mg Tablet PO 10 mg DAILY SANGEETA Administration Aspirin 81 mg 05/12/24 09:00 05/16/24 09:04 Aspirin 81 Mg Enteric Tablet PO 81 mg DAILY SANGEETA Administration Carvedilol 12.5 mg 05/16/24 09:00 05/21/24 09:16 Carvedilol 12.5 Mg Tablet PO 12.5 mg Q12HR SANGEETA Administration Clopidogrel Bisulfate 75 mg 05/12/24 09:00 05/16/24 09:04 Clopidogrel Bisulfate 75 Mg Tablet PO 75 mg DAILY SANGEETA Administration Dextrose 12.5 gm 05/11/24 22:22 Dextrose 50% 25 Gm/50 Ml Syringe IV PUSH PRN PRN Hypoglycemia Protocol Epoetin Shimon-epbx 10,000 units 05/17/24 09:00 05/20/24 09:34 Epoetin Shimon-Epbx 10,000 Units/Ml Vial SUB-Q 10,000 units TUTHSA@09 SANGEETA Administration Famotidine 20 mg 05/14/24 09:00 05/16/24 09:00 Famotidine 20 Mg/2 Ml Vial IV PUSH 20 mg DAILY SANGEETA Administration Fluticasone/Umeclidinium/Vilanterol 1 puff 05/12/24 08:00 05/21/24 07:18 Fluticasone/Umeclidin/Vilanter 100-62.5-25 Mcg Ellipta INHALATION 1 puff DAILYRT SANGEETA Administration Glucagon 1 mg 05/11/24 22:22 Glucagon For Inj 1 Mg Vial IM PRN PRN Hypoglycemia Protocol Glucose 15 gm 05/11/24 22:22 Glucose Oral Gel 15 Gm Of Glucse In 37.5 Gm Tube PO PRN PRN Hypoglycemia Protocol Guaifenesin 1,200 mg 05/12/24 09:00 05/21/24 09:13 Guaifenesin 12 Hr 600 Mg Tabcr PO 1,200 mg Q12HR SANGEETA Administration Heparin Sodium (Porcine) 5,000 units 05/12/24 09:00 05/16/24 09:02 Heparin Sodium 5,000 Units/Ml Vial SUB-Q 5,000 units Q12HR SNAGEETA Administration Hydralazine HCl 10 mg 05/15/24 17:22 05/16/24 00:13 Hydralazine Hcl 20 Mg/Ml Vial IV PUSH 10 mg Q6H PRN Administration Blood Pressure - High Dextrose 1,000 mls @ 100 mls/hr 05/11/24 22:22 Dextrose 5% 1,000 Ml IVPB PRN PRN Hypoglycemia Protocol Meropenem 500 mg in 100 mls @ 200 mls/hr 05/20/24 12:00 05/21/24 10:47 IVPB 200 mls/hr Q12HR SANGEETA Administration Insulin Aspart 4 - 8 units 05/15/24 21:00 05/21/24 09:11 Insulin Aspart (*Bkc) 100 Units/Ml SUB-Q Not Given 0800,1200,1700,2100 [facility] Protocol Levothyroxine Sodium 75 mcg 05/12/24 06:30 05/21/24 05:50 Levothyroxine Sodium 75 Mcg Tablet PO 75 mcg DAILY@0630 SANGEETA Administration Ondansetron HCl 4 mg 05/11/24 18:35 05/17/24 00:55 Ondansetron Inj 4 Mg/2 Ml Vial IV PUSH 4 mg Q4H PRN Administration Nausea Pantoprazole Sodium 40 mg 05/16/24 21:00 05/21/24 10:47 Pantoprazole Sodium Iv 40 Mg Vial IV PUSH 40 mg Q12HR SANGEETA Administration Rosuvastatin Calcium 40 mg 05/12/24 09:00 05/21/24 09:17 Rosuvastatin 20 Mg Tablet PO 40 mg DAILY SANGEETA Administration Sodium Bicarbonate 1,300 mg 05/17/24 12:05 05/21/24 09:15 Sodium Bicarbonate Tab 650 Mg Tablet PO 1,300 mg BID SANGEETA Administration Sucralfate 1,000 mg 05/17/24 16:30 05/21/24 10:48 Sucralfate Susp 100 Mg/Ml 10 Ml Udc PO 1,000 mg TIDAC SANGEETA Administration Radiology Results: ITS Impressions Chest/Abdomen/Pelvis CT 05/11/24 18:29 IMPRESSION: Extensive right upper lobe, middle lobe and left lower lobe consolidating pneumonia, with mild mediastinal reactive lymph node enlargement Occasional pulmonary nodules, likely related to pulmonary granulomatous disease 29 x 31 mm left adrenal low-attenuation mass, likely due to adrenal adenoma, less likely metastasis Normal appendix Minimal sigmoid diverticulosis; no evidence of diverticulitis Moderate prostatomegaly 2. Fusiform infrarenal abdominal aortic aneurysms, measuring up to 4 cm Central venous right common femoral catheter in right common femoral vein Renal Ultrasound 05/12/24 15:15 IMPRESSION: Unremarkable renal sonogram findings. Carotid Doppler Study 05/12/24 15:34 IMPRESSION: 1. <50% stenosis in the right internal carotid artery. 2. 50-69% stenosis in the left internal carotid artery. Chest X-Ray 05/18/24 09:09 IMPRESSION: 1. Airspace opacities in right upper lobe and left lower lobe with worsening on the left, consistent with pneumonia. Modified Barium Swallow 05/20/24 14:24 IMPRESSION: 1. Normal modified barium swallow. 2. Please refer to the speech therapy report for recommendations. Labs Labs: Laboratory Results - last 24 hr 05/12/24 05/20/24 05/21/24 01:13 21:04 04:39 WBC 20.9 H RBC 2.45 L Hgb 7.0 L Hct 21.2 L MCV 86.5 MCH 28.6 MCHC 33.0 RDW 14.4 Plt Count 301 MPV 9.8 Immature Gran % (Auto) 4.7 H Neut % (Auto) 80.9 H Lymph % (Auto) 5.7 L [place] % (Auto) 6.4 Eos % (Auto) 2.2 Baso % (Auto) 0.1 L Lymph # (Auto) 1.20 [place] # (Auto) 1.3 H Eos # (Auto) 0.5 H Baso # (Auto) 0.0 Abs Immat Gran (auto) 0.99 H Absolute Neuts (auto) 16.9 H Absolute Nucleated RBC 0.030 H Nucleated RBC % 0.1 Platelet Estimate Adequate Anisocytosis 1+ Ovalocytes 1+ Schistocytes None seen Sodium 142 Potassium 3.2 L Chloride 113 H Carbon Dioxide 21 L Anion Gap 8 BUN 105 H D Creatinine 4.30 H Estim Creat Clear Calc 13 Estimated GFR 14 L Glucose 122 H POC Capillary Glucose 142 H Calcium 7.2 L Magnesium 2.0 Total Bilirubin 0.4 AST 34 ALT 39 Alkaline Phosphatase 110 Total Protein 6.0 L Albumin 2.9 L Urine Osmolality TNP Ur Random Creatinine TNP U Random Chloride/Creat TNP 05/21/24 05/21/24 05/21/24 07:16 11:44 14:49 WBC RBC Hgb Cancelled Hct MCV MCH MCHC RDW Plt Count MPV Immature Gran % (Auto) Neut % (Auto) Lymph % (Auto) [place] % (Auto) Eos % (Auto) Baso % (Auto) Lymph # (Auto) [place] # (Auto) Eos # (Auto) Baso # (Auto) Abs Immat Gran (auto) Absolute Neuts (auto) Absolute Nucleated RBC Nucleated RBC % Platelet Estimate Anisocytosis Ovalocytes Schistocytes Sodium Potassium Chloride Carbon Dioxide Anion Gap BUN Creatinine Estim Creat Clear Calc Estimated GFR Glucose POC Capillary Glucose 120 H 172 H Calcium Magnesium Total Bilirubin AST ALT Alkaline Phosphatase Total Protein Albumin Urine Osmolality Ur Random Creatinine U Random Chloride/Creat 05/21/24 05/21/24 05/21/24 14:49 14:49 15:17 WBC RBC Hgb 7.3 L Hct Cancelled 22.6 L MCV MCH MCHC RDW Plt Count MPV Immature Gran % (Auto) Neut % (Auto) Lymph % (Auto) [place] % (Auto) Eos % (Auto) Baso % (Auto) Lymph # (Auto) [place] # (Auto) Eos # (Auto) Baso # (Auto) Abs Immat Gran (auto) Absolute Neuts (auto) Absolute Nucleated RBC Nucleated RBC % Platelet Estimate Anisocytosis Ovalocytes Schistocytes Sodium Potassium Chloride Carbon Dioxide Anion Gap BUN Creatinine Estim Creat Clear Calc Estimated GFR Glucose POC Capillary Glucose 159 H Calcium Magnesium Total Bilirubin AST ALT Alkaline Phosphatase Total Protein Albumin Urine Osmolality Ur Random Creatinine U Random Chloride/Creat
[2024-05-21 20:18] LABS: Glucose Point of Care 132 mg/dl (65-105)
[2024-05-21 21:23] LABS: Hemoglobin 7.1 g/dL (14.0-18.0)
--- NOTE | 2024-05-21 22:37 | PC.NURSE ---
1916: Called CT to ask when patient could come down. CT said they were with a post code patient from the ED and pt would be next.
[2024-05-22] VITALS (25 sets, daily range): BP systolic 114–152; BP diastolic 44–71; PULSE 60–82; RESP 16–24; TEMP 36.3–36.8; O2SAT 93–100
[2024-05-22] MEDS: IPRATROPIUM 0.5 MG/ALBUTEROL SULFATE 2.5 MG AMPUL.NEB 3 ML INHALATION ×4 (03:16→20:22)
[2024-05-22] MEDS: ACETYLCYSTEINE 20% INHAL SOLN 800 MG/4 ML VIAL 200 MG INHALATION ×4 (03:16→20:22)
[2024-05-22 05:15] LABS: Hematocrit 21.7 % (42.0-52.0); Mean Corpuscular HGB Conc 32.3 g/dl (32-36); Mean Corpuscular Hemoglobin 28.3 pg (26-34); Mean Corpuscular Volume 87.9 fl (80-100); Platelet Count Result 343 k/mm3 (150-375); Red Blood Count 2.47 M/mm3 (4.6-6.20); Red Cell Distribution Width 15.1 % (11.5-14.5); White Blood Count 21.1 K/mm3 (4.5-10.0)
[2024-05-22 05:30] LABS: Anion Gap 8 mmol/L (4-12); Blood Urea Nitrogen 89 mg/dL (9-20); Calcium 7.4 mg/dL (8.4-10.2); Carbon Dioxide 18 mmol/L (22-30); Chloride 114 mmol/L (98-107); Estimated CRCL calculation 16 ml/min; Estimated Glomerular Filt Rate 17; Glucose 99 mg/dL (65-110); Magnesium 1.8 mg/dL (1.6-2.3); Phosphorus 4.1 mg/dL (2.5-4.5); Potassium 3.4 mmol/L (3.4-5.0); Sodium 140 mmol/L (137-145)
[2024-05-22 05:40] LABS: Band Neutrophils Percent 2 % (0-6); Eosinophils Absolute Manual 0.63 K/mm3 (0.02-0.50); Eosinophils Percent Manual 3 % (0-4); Lymphocytes Absolute Manual 0.42 K/mm3 (1.1-4.5); Monocytes Absolute Manual 0.21 K/mm3 (0.1-0.90); Monocytes Percent Manual 1 % (3-9); Neutrophils Absolute Manual 19.83 K/mm3 (1.3-6.7); Neutrophils Percent Manual 92 % (46-73); Platelet Estimate Adequate (Adequate); Total Cells Counted 100
[2024-05-22 05:41] LABS: Ovalocytes 1+; Schistocytes Rare
[2024-05-22] MEDS: SUCRALFATE SUSP 100 MG/ML 10 ML UDC 1000 MG PO ×3 (05:58→17:06)
[2024-05-22] MEDS: LEVOTHYROXINE SODIUM 75 MCG TABLET PO (05:58)
[2024-05-22 07:37] LABS: Glucose Point of Care 96 mg/dl (65-105)
[2024-05-22] MEDS: SODIUM BICARBONATE TAB 650 MG TABLET 1300 MG PO ×2 (09:36→17:05)
[2024-05-22] MEDS: PANTOPRAZOLE SODIUM IV 40 MG VIAL IV PUSH ×2 (09:36→20:38)
[2024-05-22] MEDS: ROSUVASTATIN 20 MG TABLET 40 MG PO (09:36)
[2024-05-22] MEDS: carvediloL 12.5 MG TABLET PO ×2 (09:37→20:36)
[2024-05-22] MEDS: amLODIPine BESYLATE 10 MG TABLET PO (09:38)
[2024-05-22] MEDS: MEROPENEM 500 MG/NS 100 ML 500 MG/100 ML BAG 100 MG IVPB ×2 (09:38→20:36)
[2024-05-22] MEDS: EPOETIN ALFA-EPBX 10,000 UNITS/ML VIAL 10000 UNITS SUB-Q (09:39)
[2024-05-22] MEDS: FLUTICASONE/UMECLIDIN/VILANTER 100-62.5-25 MCG ELLIPTA 1 PUFF INHALATION (09:40)
[2024-05-22 10:24] LABS: Glucose Point of Care 107 mg/dl (65-105)
--- NOTE | 2024-05-22 10:43 | PM.IMPN ---
Progress Note: A&P Assessment and Plan (1) Acute respiratory failure: Code(s): J96.00 - Acute respiratory failure, unspecified whether with hypoxia or hypercapnia Status: Acute Assessment and Plan: Patient has baseline COPD and now presented with pneumonia and hypoxic respiratory failure. Initially needed Airvo/non-rebreather mask because of hypoxia. Trial of BiPAP started in ICU. Chest x-ray (05/18) showing airspace opacities in the right upper lobe and left lower lobe was worsening on the left. Weaned to room air. Solu-Cortef stopped. Continue bronchodilators Pulmonary consulted and appreciate their input Patient not wearing bipap consistently; okay to stop bipap (patient does not wear this at home) (2) Septic shock: Code(s): A41.9 - Sepsis, unspecified organism; R65.21 - Severe sepsis with septic shock Status: Acute Assessment and Plan: Septic shock secondary to pneumonia and UTI Patient received IV fluid bolus and started on pressors. Cautious IV fluids were given. Able to be weaned off pressors Hydrocortisone also started for pneumonia but now off. 05/11: Blood cultures growing Streptococcus pneumonia 07/20 bottles, pansensitive 05/12: Urine culture no growth 05/13: BCx negative. 05/14: Discontinued vancomycin and cefepime. Started ceftriaxone and doxycycline Urine Legionella Ag negative. Urine pneumococcal antigen positive. Lactic acid has normalized but WBC climbing over the past few days. MBS was okay. Finished a course of doxycycline. Previous provider discussed with ID pharmacist regarding antibiotics Repeat cultures ordered. Rocephin changed to meropenem 05/20. WBC down to 21K and stable despite meropenem x2 days. No fevers. Clinically he appears improved. Repeat CXR. Consider abscess or CDiff to explain persistent leukocytosis. (3) Multifocal pneumonia: Code(s): J18.9 - Pneumonia, unspecified organism Status: Acute Assessment and Plan: See above Repeat chest x-ray as above Pulmonary following Escalated antibiotics to meropenem on 05/19. Repeat CXR. WBC stable at 21K. Follow for now. (4) Acute kidney injury: Code(s): N17.9 - Acute kidney failure, unspecified Status: Acute Assessment and Plan: Baseline Cr unclear since last Cr was 1.4 in 2019. Creatinine of 4.4 and climbed to 7. Bun up to 165 but had been on steroids. Nephrology following and appreciate their input. Renal US unremarkable Cr better at 3.5 and BUN at 89. UOP 1900mL yesterday and 1450mL already today. Okay to remove Garcia. Continue to follow (5) Elevated troponin: Code(s): R79.89 - Other specified abnormal findings of blood chemistry Status: Acute Assessment and Plan: Mildly elevated troponin in the setting of septic shock and LEIA likely demand ischemia. Patient denies any chest pain. Troponin trending down 04/2524 Echo: LV dimension is mildly enlarged, LV systolic fxn moderately, globally reduced (EF 35-40%), mild concentric LVH, Grade I diastolic dysfunction, LAE and trace valvular disease. Continue Coreg. No DENIS, Entresto, Spirno or Empaglifloxin with renal failure. Following (6) Anemia: Qualifiers: Anemia type: unspecified type Qualified Code(s): D64.9 - Anemia, unspecified Code(s): D64.9 - Anemia, unspecified Status: Acute Assessment and Plan: Hgb 12.2 on admission but dropped to 6.5 on 05/17. FOBT positive stool Holding ASA, plavix and Heparin SQ Received 1U PRBCs on 05/17. PPI started GI consulted and EGD contemplated when stable. Appreciate GI input. hgb dropped to 7.0. Will transfuse 1U PRBC. Monitor HH closely and transfuse as needed. Discussed with GI. Plan for endoscopy on sunday. (7) Type 2 diabetes mellitus: Code(s): E11.9 - Type 2 diabetes mellitus without complications Status: Acute Assessment and Plan: The patient's blood glucose was reviewed on 05/22 Glucose remains well controlled. Continue AccuCheks covering with sliding scale. Hypoglycemia protocol available as needed. 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 Suspect his recent infections have made his chronic left sided weakness more prominent. Continue PT/OT. ASA on hold. Continue Crestor DVT prophylaxis - SCDs Code Status: Full code Subjective Date/time seen: 05/22/24 10:43 Interval history: 74yo male with COPD, HTN, HLD, DM and PAD here for weakness and syncope. Slept well. No CP, SOB or cough. No appetite today. No n/v. Not on O2 or NIV at home. Wore the NIV last night for a very brief amount of time. Exam Narrative: AF 97.7 150/65 72 20 95% RA Gen - thin, pale appearing male in NARD sitting at the side of the bed Chest - decreased BS in the left base o/w distant CV - RRR S1/S2. Tele showing PVCs Abd - Soft, NT/ND, Positive BS - Garcia secured draining clear yellow urine Ext - No pedal edema Neuro - Alert and appropriate. mild less sided weakness Psych - Nml mood and affect Skin - Warm and dry Objective Data Vital Signs Vital Signs: Vital Signs - 24 hr 05/21/24 11:17 05/21/24 13:10 05/21/24 13:10 Temperature 97.7 F Pulse Rate 62 58 L Respiratory Rate 20 20 Blood Pressure 112/47 L Pulse Oximetry 95 93 Oxygen Delivery Room Air Fraction of Inspired Oxygen 05/21/24 12:00 05/21/24 12:00 05/21/24 15:46 Temperature 97.6 F Pulse Rate 58 L 60 Respiratory Rate 18 Blood Pressure 112/43 L Pulse Oximetry 92 93 Oxygen Delivery Room Air Fraction of Inspired Oxygen 05/21/24 14:00 05/21/24 16:00 05/21/24 16:00 Temperature Pulse Rate 68 60 Respiratory Rate Blood Pressure Pulse Oximetry 92 Oxygen Delivery Room Air Fraction of Inspired Oxygen 05/21/24 20:00 05/21/24 21:05 05/21/24 21:08 Temperature 97.9 F Pulse Rate 67 68 68 Respiratory Rate 20 20 Blood Pressure 141/45 H Pulse Oximetry 99 93 Oxygen Delivery Room Air Fraction of Inspired Oxygen 05/21/24 21:16 05/21/24 21:48 05/21/24 20:00 Temperature Pulse Rate 70 71 Respiratory Rate 20 Blood Pressure Pulse Oximetry Oxygen Delivery Room Air Fraction of Inspired Oxygen 05/21/24 20:00 05/22/24 00:00 05/21/24 22:00 Temperature 98 F Pulse Rate 65 67 74 Respiratory Rate 18 Blood Pressure 146/57 H Pulse Oximetry 95 Oxygen Delivery Fraction of Inspired Oxygen 05/22/24 00:00 05/22/24 00:00 05/22/24 02:00 Temperature Pulse Rate 66 71 Respiratory Rate Blood Pressure Pulse Oximetry Oxygen Delivery Room Air Fraction of Inspired Oxygen 05/22/24 03:17 05/21/24 23:05 05/22/24 03:34 Temperature Pulse Rate 73 73 73 Respiratory Rate 20 20 Blood Pressure Pulse Oximetry 96 Oxygen Delivery BiPAP Fraction of Inspired Oxygen 05/22/24 04:00 05/22/24 04:00 05/22/24 04:00 Temperature 98.2 F Pulse Rate 72 60 Respiratory Rate 16 Blood Pressure 140/56 L Pulse Oximetry 94 Oxygen Delivery Room Air Fraction of Inspired Oxygen 05/22/24 06:00 05/22/24 08:00 05/22/24 09:37 Temperature 97.7 F Pulse Rate 70 72 70 Respiratory Rate 16 Blood Pressure 150/65 H Pulse Oximetry 96 Oxygen Delivery Fraction of Inspired Oxygen 05/22/24 08:45 05/22/24 09:41 05/22/24 09:41 Temperature Pulse Rate 74 72 72 Respiratory Rate 20 20 Blood Pressure Pulse Oximetry 95 Oxygen Delivery Room Air Fraction of Inspired Oxygen 21 Intake/Output Intake/Output: Intake & Output 05/19/24 05/20/24 05/21/24 05/22/24 23:59 23:59 23:59 23:59 Intake Total 1420 3200 3850 600 Output Total 1750 1700 1902 1450 Balance -330 1500 1948 -850 Meds/Results Medications: Active Medications Generic Name Dose Route Start Last Admin Trade Name Freq PRN Reason Stop Dose Admin Acetaminophen 650 mg 05/11/24 18:35 05/21/24 09:16 Acetaminophen 325 Mg Tablet PO 650 mg Q4H PRN Administration Mild Pain (1-3) or Fever Acetylcysteine 200 mg 05/17/24 20:00 05/22/24 08:16 Acetylcysteine 20% Inhal Soln 800 Mg/4 Ml Vial INHALATION 200 mg Q6HRT SANGEETA Administration Albuterol/Ipratropium 3 ml 05/12/24 02:00 05/22/24 08:16 Ipratropium 0.5 Mg/Albuterol Sulfate 2.5 Mg Ampul.Neb 3 Ml INHALATION 3 ml Q6HRT SANGEETA Administration Amlodipine Besylate 10 mg 05/16/24 09:00 05/22/24 09:38 Amlodipine Besylate 10 Mg Tablet PO 10 mg DAILY SANGEETA Administration Aspirin 81 mg 05/12/24 09:00 05/16/24 09:04 Aspirin 81 Mg Enteric Tablet PO 81 mg DAILY SANGEETA Administration Carvedilol 12.5 mg 05/16/24 09:00 05/22/24 09:37 Carvedilol 12.5 Mg Tablet PO 12.5 mg Q12HR SANGEETA Administration Clopidogrel Bisulfate 75 mg 05/12/24 09:00 05/16/24 09:04 Clopidogrel Bisulfate 75 Mg Tablet PO 75 mg DAILY SANGEETA Administration Dextrose 12.5 gm 05/11/24 22:22 Dextrose 50% 25 Gm/50 Ml Syringe IV PUSH PRN PRN Hypoglycemia Protocol Epoetin Shimon-epbx 10,000 units 05/17/24 09:00 05/22/24 09:39 Epoetin Shimon-Epbx 10,000 Units/Ml Vial SUB-Q 10,000 units TUTA@09 SANGEETA Administration Famotidine 20 mg 05/14/24 09:00 05/16/24 09:00 Famotidine 20 Mg/2 Ml Vial IV PUSH 20 mg DAILY SANGEETA Administration Fluticasone/Umeclidinium/Vilanterol 1 puff 05/12/24 08:00 05/22/24 09:40 Fluticasone/Umeclidin/Vilanter 100-62.5-25 Mcg Ellipta INHALATION 1 puff DAILYRT SANGEETA Administration Glucagon 1 mg 05/11/24 22:22 Glucagon For Inj 1 Mg Vial IM PRN PRN Hypoglycemia Protocol Glucose 15 gm 05/11/24 22:22 Glucose Oral Gel 15 Gm Of Glucse In 37.5 Gm Tube PO PRN PRN Hypoglycemia Protocol Guaifenesin 1,200 mg 05/12/24 09:00 05/21/24 21:48 Guaifenesin 12 Hr 600 Mg Tabcr PO 1,200 mg Q12HR SANGEETA Administration Heparin Sodium (Porcine) 5,000 units 05/12/24 09:00 05/16/24 09:02 Heparin Sodium 5,000 Units/Ml Vial SUB-Q 5,000 units Q12HR SANGEETA Administration Hydralazine HCl 10 mg 05/15/24 17:22 05/16/24 00:13 Hydralazine Hcl 20 Mg/Ml Vial IV PUSH 10 mg Q6H PRN Administration Blood Pressure - High Dextrose 1,000 mls @ 100 mls/hr 05/11/24 22:22 Dextrose 5% 1,000 Ml IVPB PRN PRN Hypoglycemia Protocol Meropenem 500 mg in 100 mls @ 200 mls/hr 05/20/24 12:00 05/22/24 09:38 IVPB 100 mls/hr Q12HR SANGEETA Administration Insulin Aspart 4 - 8 units 05/15/24 21:00 05/22/24 09:18 Insulin Aspart (*Bkc) 100 Units/Ml SUB-Q Not Given 0800,1200,1700,2100 [facility] Protocol Levothyroxine Sodium 75 mcg 05/12/24 06:30 05/22/24 05:58 Levothyroxine Sodium 75 Mcg Tablet PO 75 mcg DAILY@0630 SANGEETA Administration Ondansetron HCl 4 mg 05/11/24 18:35 05/17/24 00:55 Ondansetron Inj 4 Mg/2 Ml Vial IV PUSH 4 mg Q4H PRN Administration Nausea Pantoprazole Sodium 40 mg 05/16/24 21:00 05/22/24 09:36 Pantoprazole Sodium Iv 40 Mg Vial IV PUSH 40 mg Q12HR SANGEETA Administration Rosuvastatin Calcium 40 mg 05/12/24 09:00 05/22/24 09:36 Rosuvastatin 20 Mg Tablet PO 40 mg DAILY SANGEETA Administration Sodium Bicarbonate 1,300 mg 05/17/24 12:05 05/22/24 09:36 Sodium Bicarbonate Tab 650 Mg Tablet PO 1,300 mg BID SANGEETA Administration Sucralfate 1,000 mg 05/17/24 16:30 05/22/24 05:58 Sucralfate Susp 100 Mg/Ml 10 Ml Udc PO 1,000 mg TIDAC SANGEETA Administration Radiology Results: ITS Impressions Chest/Abdomen/Pelvis CT 05/11/24 18:29 IMPRESSION: Extensive right upper lobe, middle lobe and left lower lobe consolidating pneumonia, with mild mediastinal reactive lymph node enlargement Occasional pulmonary nodules, likely related to pulmonary granulomatous disease 29 x 31 mm left adrenal low-attenuation mass, likely due to adrenal adenoma, less likely metastasis Normal appendix Minimal sigmoid diverticulosis; no evidence of diverticulitis Moderate prostatomegaly 2. Fusiform infrarenal abdominal aortic aneurysms, measuring up to 4 cm Central venous right common femoral catheter in right common femoral vein Renal Ultrasound 05/12/24 15:15 IMPRESSION: Unremarkable renal sonogram findings. Carotid Doppler Study 05/12/24 15:34 IMPRESSION: 1. <50% stenosis in the right internal carotid artery. 2. 50-69% stenosis in the left internal carotid artery. Chest X-Ray 05/18/24 09:09 IMPRESSION: 1. Airspace opacities in right upper lobe and left lower lobe with worsening on the left, consistent with pneumonia. Modified Barium Swallow 05/20/24 14:24 IMPRESSION: 1. Normal modified barium swallow. 2. Please refer to the speech therapy report for recommendations. Head CT 05/21/24 21:34 IMPRESSION: No definite acute intracranial findings. 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 If still suspicious MRI is advised. Labs Labs: Laboratory Results - last 24 hr 05/12/24 05/21/24 05/21/24 01:13 11:44 14:49 WBC RBC Hgb Cancelled Hct MCV MCH MCHC RDW Plt Count MPV Immature Gran % (Auto) Neut % (Auto) Lymph % (Auto) Titus % (Auto) Eos % (Auto) Baso % (Auto) Lymph # (Auto) Titus # (Auto) Eos # (Auto) Baso # (Auto) Abs Immat Gran (auto) Absolute Neuts (auto) Absolute Nucleated RBC Total Counted Neutrophils % (Manual) Band Neutrophils % Lymphocytes % (Manual) Monocytes % (Manual) Eosinophils % (Manual) Nucleated RBC % Abs Neuts (Manual) Abs Lymphs (Manual) Abs Monocytes (Manual) Absolute Eos (Manual) Platelet Estimate Ovalocytes Schistocytes Sodium Potassium Chloride Carbon Dioxide Anion Gap BUN Creatinine Estim Creat Clear Calc Estimated GFR Glucose POC Capillary Glucose 172 H Calcium Phosphorus Magnesium Albumin Ur Random Chloride TNP 05/21/24 05/21/24 05/21/24 14:49 14:49 15:17 WBC RBC Hgb 7.3 L Hct Cancelled 22.6 L MCV MCH MCHC RDW Plt Count MPV Immature Gran % (Auto) Neut % (Auto) Lymph % (Auto) Titus % (Auto) Eos % (Auto) Baso % (Auto) Lymph # (Auto) Titus # (Auto) Eos # (Auto) Baso # (Auto) Abs Immat Gran (auto) Absolute Neuts (auto) Absolute Nucleated RBC Total Counted Neutrophils % (Manual) Band Neutrophils % Lymphocytes % (Manual) Monocytes % (Manual) Eosinophils % (Manual) Nucleated RBC % Abs Neuts (Manual) Abs Lymphs (Manual) Abs Monocytes (Manual) Absolute Eos (Manual) Platelet Estimate Ovalocytes Schistocytes Sodium Potassium Chloride Carbon Dioxide Anion Gap BUN Creatinine Estim Creat Clear Calc Estimated GFR Glucose POC Capillary Glucose 159 H Calcium Phosphorus Magnesium Albumin Ur Random Chloride 05/21/24 05/21/24 05/22/24 20:03 21:03 04:59 WBC 21.1 H RBC 2.47 L Hgb 7.1 L 7.0 L Hct 21.0 L 21.7 L MCV 87.9 MCH 28.3 MCHC 32.3 RDW 15.1 H Plt Count 343 MPV 10.0 Immature Gran % (Auto) Not Reportable Neut % (Auto) Not Reportable Lymph % (Auto) Not Reportable Titus % (Auto) Not Reportable Eos % (Auto) Not Reportable Baso % (Auto) Not Reportable Lymph # (Auto) Not Reportable Titus # (Auto) Not Reportable Eos # (Auto) Not Reportable Baso # (Auto) Not Reportable Abs Immat Gran (auto) Not Reportable Absolute Neuts (auto) Not Reportable Absolute Nucleated RBC Not Reportable Total Counted 100 Neutrophils % (Manual) 92 H Band Neutrophils % 2 Lymphocytes % (Manual) 2.0 L Monocytes % (Manual) 1 L Eosinophils % (Manual) 3 Nucleated RBC % Not Reportable Abs Neuts (Manual) 19.83 H Abs Lymphs (Manual) 0.42 L Abs Monocytes (Manual) 0.21 Absolute Eos (Manual) 0.63 H Platelet Estimate Adequate Ovalocytes 1+ Schistocytes Rare Sodium 140 Potassium 3.4 Chloride 114 H Carbon Dioxide 18 L Anion Gap 8 BUN 89 H D Creatinine 3.50 H Estim Creat Clear Calc 16 Estimated GFR 17 L Glucose 99 POC Capillary Glucose 132 H Calcium 7.4 L Phosphorus 4.1 Magnesium 1.8 Albumin 3.0 L Ur Random Chloride 05/22/24 05/22/24 07:29 10:21 WBC RBC Hgb Hct MCV MCH MCHC RDW Plt Count MPV Immature Gran % (Auto) Neut % (Auto) Lymph % (Auto) Titus % (Auto) Eos % (Auto) Baso % (Auto) Lymph # (Auto) Titus # (Auto) Eos # (Auto) Baso # (Auto) Abs Immat Gran (auto) Absolute Neuts (auto) Absolute Nucleated RBC Total Counted Neutrophils % (Manual) Band Neutrophils % Lymphocytes % (Manual) Monocytes % (Manual) Eosinophils % (Manual) Nucleated RBC % Abs Neuts (Manual) Abs Lymphs (Manual) Abs Monocytes (Manual) Absolute Eos (Manual) Platelet Estimate Ovalocytes Schistocytes Sodium Potassium Chloride Carbon Dioxide Anion Gap BUN Creatinine Estim Creat Clear Calc Estimated GFR Glucose POC Capillary Glucose 96 107 H Calcium Phosphorus Magnesium Albumin Ur Random Chloride
--- NOTE | 2024-05-22 11:00 | PCNFU ---
Nutrition Follow-Up Complete: Inadequate energy intake related to diet order as evidenced by clear liquids Goal:Meet estimated needs Pt meeting goal. Pt current nutrition is Renal. Nutrition recommendation: continue with current plan of care Last recorded weight is 75 kg. Bowel Motility: +BM 05/21 Labs Reviewed: Hgb:7.0, HCT:21.7, Alb:3.0, GFR:17, BUN:89, Cr:3.5 Meds Noted: novolog, protonix Skin: wNL Additional Notes: Pt diet advanced to renal, intake 50-100% most meals, pt states he is eating ok. Pt does not want any supplements. Encouraged po intake. Monitor diet order, intake, tolerance, wt, labs. Follow up in 7 days.
[2024-05-22 11:37] LABS: Glucose Point of Care 99 mg/dl (65-105)
[2024-05-22] MEDS: TUBING, BLOOD PLUM PUMP TUBING 1 EACH XX (13:50)
[2024-05-22] MEDS: SODIUM CHLORIDE 0.9% IV 250 ML 30 ML IV CONT (13:50)
--- NOTE | 2024-05-22 14:21 | PCPTNOTE ---
The patient treatment was not able to be completed at this time due to nursing starting unit of blood. Will plan to continue treatment per plan of care.
--- NOTE | 2024-05-22 14:50 | P.PNGI_ITS ---
Progress Note: A&P Assessment and Plan (1) Melena: Code(s): K92.1 - Melena Status: Acute Assessment and Plan: As stated before, we are awaiting for the hospitalist and pulmonary team to clear him for semi elective EGD for the investigation of anemia. He is currently not having melena and his hemoglobin has remained stable at 7 g/dL. His kidney function is slowly improving, now 3.5. Will keep following. (2) Acute blood loss anemia: Code(s): D62 - Acute posthemorrhagic anemia Status: Acute Subjective Date/time seen: 05/22/24 14:50 Interval history: No new complaints. Slow improvement of respiratory status, receiving broad spectrum antbiotics. Objective Data Vital Signs Vital Signs: Vital Signs - 24 hr 05/21/24 15:46 05/21/24 16:00 05/21/24 16:00 Temperature 97.6 F Pulse Rate 60 60 Respiratory Rate 18 Blood Pressure 112/43 L Pulse Oximetry 93 Oxygen Delivery Room Air Fraction of Inspired Oxygen 05/21/24 20:00 05/21/24 21:05 05/21/24 21:08 Temperature 97.9 F Pulse Rate 67 68 68 Respiratory Rate 20 20 Blood Pressure 141/45 H Pulse Oximetry 99 93 Oxygen Delivery Room Air Fraction of Inspired Oxygen 21 05/21/24 21:16 05/21/24 21:48 05/21/24 20:00 Temperature Pulse Rate 70 71 Respiratory Rate 20 Blood Pressure Pulse Oximetry Oxygen Delivery Room Air Fraction of Inspired Oxygen 05/21/24 20:00 05/22/24 00:00 05/21/24 22:00 Temperature 98 F Pulse Rate 65 67 74 Respiratory Rate 18 Blood Pressure 146/57 H Pulse Oximetry 95 Oxygen Delivery Fraction of Inspired Oxygen 05/22/24 00:00 05/22/24 00:00 05/22/24 02:00 Temperature Pulse Rate 66 71 Respiratory Rate Blood Pressure Pulse Oximetry Oxygen Delivery Room Air Fraction of Inspired Oxygen 05/22/24 03:17 05/21/24 23:05 05/22/24 03:34 Temperature Pulse Rate 73 73 73 Respiratory Rate 20 20 Blood Pressure Pulse Oximetry 96 Oxygen Delivery BiPAP Fraction of Inspired Oxygen 05/22/24 04:00 05/22/24 04:00 05/22/24 04:00 Temperature 98.2 F Pulse Rate 72 60 Respiratory Rate 16 Blood Pressure 140/56 L Pulse Oximetry 94 Oxygen Delivery Room Air Fraction of Inspired Oxygen 05/22/24 06:00 05/22/24 08:00 05/22/24 09:37 Temperature 97.7 F Pulse Rate 70 72 70 Respiratory Rate 16 Blood Pressure 150/65 H Pulse Oximetry 96 Oxygen Delivery Fraction of Inspired Oxygen 05/22/24 08:45 05/22/24 09:41 05/22/24 09:41 Temperature Pulse Rate 74 72 72 Respiratory Rate 20 20 Blood Pressure Pulse Oximetry 95 Oxygen Delivery Room Air Fraction of Inspired Oxygen 21 05/22/24 08:00 05/22/24 11:41 05/22/24 13:53 Temperature 97.7 F 97.9 F Pulse Rate 62 67 Respiratory Rate 16 20 Blood Pressure 117/49 L 114/45 L Pulse Oximetry 95 93 Oxygen Delivery Room Air Fraction of Inspired Oxygen 05/22/24 10:00 05/22/24 12:00 05/22/24 14:20 Temperature 97.8 F Pulse Rate 66 69 60 Respiratory Rate 18 Blood Pressure 124/45 L Pulse Oximetry 93 Oxygen Delivery Fraction of Inspired Oxygen Intake/Output Intake/Output: Intake & Output 05/19/24 05/20/24 05/21/24 05/22/24 23:59 23:59 23:59 23:59 Intake Total 1420 3200 3850 840 Output Total 1750 1700 1902 1450 Balance -330 1500 1948 -610 Meds/Results Medications: Active Medications Generic Name Dose Route Start Last Admin Trade Name Freq PRN Reason Stop Dose Admin Acetaminophen 650 mg 05/11/24 18:35 05/21/24 09:16 Acetaminophen 325 Mg Tablet PO 650 mg Q4H PRN Administration Mild Pain (1-3) or Fever Acetylcysteine 200 mg 05/17/24 20:00 05/22/24 08:16 Acetylcysteine 20% Inhal Soln 800 Mg/4 Ml Vial INHALATION 200 mg Q6HRT SANGEETA Administration Albuterol/Ipratropium 3 ml 05/12/24 02:00 05/22/24 08:16 Ipratropium 0.5 Mg/Albuterol Sulfate 2.5 Mg Ampul.Neb 3 Ml INHALATION 3 ml Q6HRT SANGEETA Administration Amlodipine Besylate 10 mg 05/16/24 09:00 05/22/24 09:38 Amlodipine Besylate 10 Mg Tablet PO 10 mg DAILY SANGEETA Administration Aspirin 81 mg 05/12/24 09:00 05/16/24 09:04 Aspirin 81 Mg Enteric Tablet PO 81 mg DAILY SANGEETA Administration Carvedilol 12.5 mg 05/16/24 09:00 05/22/24 09:37 Carvedilol 12.5 Mg Tablet PO 12.5 mg Q12HR SANGEETA Administration Clopidogrel Bisulfate 75 mg 05/12/24 09:00 05/16/24 09:04 Clopidogrel Bisulfate 75 Mg Tablet PO 75 mg DAILY SANGEETA Administration Dextrose 12.5 gm 05/11/24 22:22 Dextrose 50% 25 Gm/50 Ml Syringe IV PUSH PRN PRN Hypoglycemia Protocol Epoetin Shimon-epbx 10,000 units 05/17/24 09:00 05/22/24 09:39 Epoetin Shimon-Epbx 10,000 Units/Ml Vial SUB-Q 10,000 units TUTHSA@09 SANGEETA Administration Famotidine 20 mg 05/14/24 09:00 05/16/24 09:00 Famotidine 20 Mg/2 Ml Vial IV PUSH 20 mg DAILY SANGEETA Administration Fluticasone/Umeclidinium/Vilanterol 1 puff 05/12/24 08:00 05/22/24 09:40 Fluticasone/Umeclidin/Vilanter 100-62.5-25 Mcg Ellipta INHALATION 1 puff DAILYRT SANGEETA Administration Glucagon 1 mg 05/11/24 22:22 Glucagon For Inj 1 Mg Vial IM PRN PRN Hypoglycemia Protocol Glucose 15 gm 05/11/24 22:22 Glucose Oral Gel 15 Gm Of Glucse In 37.5 Gm Tube PO PRN PRN Hypoglycemia Protocol Guaifenesin 1,200 mg 05/12/24 09:00 05/21/24 21:48 Guaifenesin 12 Hr 600 Mg Tabcr PO 1,200 mg Q12HR SANGEETA Administration Heparin Sodium (Porcine) 5,000 units 05/12/24 09:00 05/16/24 09:02 Heparin Sodium 5,000 Units/Ml Vial SUB-Q 5,000 units Q12HR SANGEETA Administration Hydralazine HCl 10 mg 05/15/24 17:22 05/16/24 00:13 Hydralazine Hcl 20 Mg/Ml Vial IV PUSH 10 mg Q6H PRN Administration Blood Pressure - High Dextrose 1,000 mls @ 100 mls/hr 05/11/24 22:22 Dextrose 5% 1,000 Ml IVPB PRN PRN Hypoglycemia Protocol Meropenem 500 mg in 100 mls @ 200 mls/hr 05/20/24 12:00 05/22/24 09:38 IVPB 100 mls/hr Q12HR SANGEETA Administration Sodium Chloride 250 mls @ 30 mls/hr 05/22/24 10:46 Normal Saline Iv IV CONT 05/22/24 19:05 .Q8H20M STA Insulin Aspart 4 - 8 units 05/15/24 21:00 05/22/24 09:18 Insulin Aspart (*Bkc) 100 Units/Ml SUB-Q Not Given 0800,1200,1700,2100 [facility] Protocol Levothyroxine Sodium 75 mcg 05/12/24 06:30 05/22/24 05:58 Levothyroxine Sodium 75 Mcg Tablet PO 75 mcg DAILY@0630 SANGEETA Administration Ondansetron HCl 4 mg 05/11/24 18:35 05/17/24 00:55 Ondansetron Inj 4 Mg/2 Ml Vial IV PUSH 4 mg Q4H PRN Administration Nausea Pantoprazole Sodium 40 mg 05/16/24 21:00 05/22/24 09:36 Pantoprazole Sodium Iv 40 Mg Vial IV PUSH 40 mg Q12HR SANGEETA Administration Rosuvastatin Calcium 40 mg 05/12/24 09:00 05/22/24 09:36 Rosuvastatin 20 Mg Tablet PO 40 mg DAILY SANGEETA Administration Sodium Bicarbonate 1,300 mg 05/17/24 12:05 05/22/24 09:36 Sodium Bicarbonate Tab 650 Mg Tablet PO 1,300 mg BID SANGEETA Administration Sucralfate 1,000 mg 05/17/24 16:30 05/22/24 05:58 Sucralfate Susp 100 Mg/Ml 10 Ml Udc PO 1,000 mg TIDAC SANGEETA Administration Radiology Results: ITS Impressions Chest/Abdomen/Pelvis CT 05/11/24 18:29 IMPRESSION: Extensive right upper lobe, middle lobe and left lower lobe consolidating pneumonia, with mild mediastinal reactive lymph node enlargement Occasional pulmonary nodules, likely related to pulmonary granulomatous disease 29 x 31 mm left adrenal low-attenuation mass, likely due to adrenal adenoma, less likely metastasis Normal appendix Minimal sigmoid diverticulosis; no evidence of diverticulitis Moderate prostatomegaly 2. Fusiform infrarenal abdominal aortic aneurysms, measuring up to 4 cm Central venous right common femoral catheter in right common femoral vein Renal Ultrasound 05/12/24 15:15 IMPRESSION: Unremarkable renal sonogram findings. Carotid Doppler Study 05/12/24 15:34 IMPRESSION: 1. <50% stenosis in the right internal carotid artery. 2. 50-69% stenosis in the left internal carotid artery. Modified Barium Swallow 05/20/24 14:24 IMPRESSION: 1. Normal modified barium swallow. 2. Please refer to the speech therapy report for recommendations. Head CT 05/21/24 21:34 IMPRESSION: No definite acute intracranial findings. 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 If still suspicious MRI is advised. Chest X-Ray 05/22/24 11:50 IMPRESSION: 1. Improved airspace opacities in right mid and upper lung zones and worsened airspace opacities in left mid and lower lung zones, consistent with pneumonia. 2. Small left pleural effusion. Labs Labs: Laboratory Results - last 24 hr 05/12/24 05/21/24 05/21/24 01:13 14:49 14:49 WBC RBC Hgb Cancelled 7.3 L Hct Cancelled MCV MCH MCHC RDW Plt Count MPV Immature Gran % (Auto) Neut % (Auto) Lymph % (Auto) [place] % (Auto) Eos % (Auto) Baso % (Auto) Lymph # (Auto) [place] # (Auto) Eos # (Auto) Baso # (Auto) Abs Immat Gran (auto) Absolute Neuts (auto) Absolute Nucleated RBC Total Counted Neutrophils % (Manual) Band Neutrophils % Lymphocytes % (Manual) Monocytes % (Manual) Eosinophils % (Manual) Nucleated RBC % Abs Neuts (Manual) Abs Lymphs (Manual) Abs Monocytes (Manual) Absolute Eos (Manual) Platelet Estimate Ovalocytes Schistocytes Sodium Potassium Chloride Carbon Dioxide Anion Gap BUN Creatinine Estim Creat Clear Calc Estimated GFR Glucose POC Capillary Glucose Calcium Phosphorus Magnesium Albumin Ur Random Chloride TNP Blood Type Antibody Screen Crossmatch 05/21/24 05/21/24 05/21/24 14:49 15:17 20:03 WBC RBC Hgb Hct 22.6 L MCV MCH MCHC RDW Plt Count MPV Immature Gran % (Auto) Neut % (Auto) Lymph % (Auto) [place] % (Auto) Eos % (Auto) Baso % (Auto) Lymph # (Auto) [place] # (Auto) Eos # (Auto) Baso # (Auto) Abs Immat Gran (auto) Absolute Neuts (auto) Absolute Nucleated RBC Total Counted Neutrophils % (Manual) Band Neutrophils % Lymphocytes % (Manual) Monocytes % (Manual) Eosinophils % (Manual) Nucleated RBC % Abs Neuts (Manual) Abs Lymphs (Manual) Abs Monocytes (Manual) Absolute Eos (Manual) Platelet Estimate Ovalocytes Schistocytes Sodium Potassium Chloride Carbon Dioxide Anion Gap BUN Creatinine Estim Creat Clear Calc Estimated GFR Glucose POC Capillary Glucose 159 H 132 H Calcium Phosphorus Magnesium Albumin Ur Random Chloride Blood Type Antibody Screen Crossmatch 05/21/24 05/22/24 05/22/24 21:03 04:59 07:29 WBC 21.1 H RBC 2.47 L Hgb 7.1 L 7.0 L Hct 21.0 L 21.7 L MCV 87.9 MCH 28.3 MCHC 32.3 RDW 15.1 H Plt Count 343 MPV 10.0 Immature Gran % (Auto) Not Reportable Neut % (Auto) Not Reportable Lymph % (Auto) Not Reportable [place] % (Auto) Not Reportable Eos % (Auto) Not Reportable Baso % (Auto) Not Reportable Lymph # (Auto) Not Reportable [place] # (Auto) Not Reportable Eos # (Auto) Not Reportable Baso # (Auto) Not Reportable Abs Immat Gran (auto) Not Reportable Absolute Neuts (auto) Not Reportable Absolute Nucleated RBC Not Reportable Total Counted 100 Neutrophils % (Manual) 92 H Band Neutrophils % 2 Lymphocytes % (Manual) 2.0 L Monocytes % (Manual) 1 L Eosinophils % (Manual) 3 Nucleated RBC % Not Reportable Abs Neuts (Manual) 19.83 H Abs Lymphs (Manual) 0.42 L Abs Monocytes (Manual) 0.21 Absolute Eos (Manual) 0.63 H Platelet Estimate Adequate Ovalocytes 1+ Schistocytes Rare Sodium 140 Potassium 3.4 Chloride 114 H Carbon Dioxide 18 L Anion Gap 8 BUN 89 H D Creatinine 3.50 H Estim Creat Clear Calc 16 Estimated GFR 17 L Glucose 99 POC Capillary Glucose 96 Calcium 7.4 L Phosphorus 4.1 Magnesium 1.8 Albumin 3.0 L Ur Random Chloride Blood Type Antibody Screen Crossmatch 05/22/24 05/22/24 05/22/24 10:21 10:58 11:20 WBC RBC Hgb Hct MCV MCH MCHC RDW Plt Count MPV Immature Gran % (Auto) Neut % (Auto) Lymph % (Auto) [place] % (Auto) Eos % (Auto) Baso % (Auto) Lymph # (Auto) [place] # (Auto) Eos # (Auto) Baso # (Auto) Abs Immat Gran (auto) Absolute Neuts (auto) Absolute Nucleated RBC Total Counted Neutrophils % (Manual) Band Neutrophils % Lymphocytes % (Manual) Monocytes % (Manual) Eosinophils % (Manual) Nucleated RBC % Abs Neuts (Manual) Abs Lymphs (Manual) Abs Monocytes (Manual) Absolute Eos (Manual) Platelet Estimate Ovalocytes Schistocytes Sodium Potassium Chloride Carbon Dioxide Anion Gap BUN Creatinine Estim Creat Clear Calc Estimated GFR Glucose POC Capillary Glucose 107 H 99 Calcium Phosphorus Magnesium Albumin Ur Random Chloride Blood Type O Positive Antibody Screen Negative Crossmatch See Detail
[2024-05-22] MEDS: guaiFENesin 12 HR 600 MG TABCR 1200 MG PO ×2 (14:57→20:36)
[2024-05-22 17:06] LABS: Glucose Point of Care 131 mg/dl (65-105)
[2024-05-22 19:42] LABS: Hematocrit 24.3 % (42.0-52.0); Hemoglobin 8.2 g/dL (14.0-18.0)
[2024-05-22] MEDS: INSULIN ASPART (*BKC) 100 UNITS/ML SUB-Q (20:44)
[2024-05-22 21:04] LABS: Glucose Point of Care 208 mg/dl (65-105)
[2024-05-23] VITALS (12 sets, daily range): BP systolic 108–137; BP diastolic 51–58; PULSE 60–87; RESP 12–20; TEMP 36.1–36.6; O2SAT 92–100
[2024-05-23] MEDS: IPRATROPIUM 0.5 MG/ALBUTEROL SULFATE 2.5 MG AMPUL.NEB 3 ML INHALATION ×2 (02:35→07:25)
[2024-05-23] MEDS: ACETYLCYSTEINE 20% INHAL SOLN 800 MG/4 ML VIAL 200 MG INHALATION ×2 (02:35→07:25)
[2024-05-23 05:14] LABS: Basophils Percent Auto 0.2 % (0.2-1.2); Eosinophils Absolute Auto 0.4 K/mm3 (0-0.3); Eosinophils Percent Auto 2.3 % (0-4.4); Hematocrit 26.9 % (42.0-52.0); Hemoglobin 8.9 g/dL (14.0-18.0); Immature Granulocyte Absolute 0.52 K/mm3 (0.00-0.031); Immature Granulocyte Percent A 2.7 % (0-0.5); Lymphocytes Percent Auto 6.2 % (18.3-44.2); Mean Corpuscular HGB Conc 33.1 g/dl (32-36); Mean Corpuscular Hemoglobin 29.3 pg (26-34); Mean Corpuscular Volume 88.5 fl (80-100); Mean Platelet Volume 9.5 fl (7.4-10.4); Monocytes Absolute Auto 1.4 K/mm3 (0.1-0.6); Monocytes Percent Auto 7.4 % (2.6-8.5); Neutrophils Absolute Auto 15.6 K/mm3 (1.3-6.7); Neutrophils Percent Auto 81.2 % (45.5-73.1); Platelet Count Result 349 k/mm3 (150-375); Red Blood Count 3.04 M/mm3 (4.6-6.20); Red Cell Distribution Width 15.3 % (11.5-14.5); White Blood Count 19.2 K/mm3 (4.5-10.0)
[2024-05-23 05:25] LABS: Albumin Level 3.1 g/dL (3.5-5.1); Anion Gap 8 mmol/L (4-12); Blood Urea Nitrogen 71 mg/dL (9-20); Calcium 7.4 mg/dL (8.4-10.2); Carbon Dioxide 22 mmol/L (22-30); Chloride 114 mmol/L (98-107); Estimated CRCL calculation 19 ml/min; Estimated Glomerular Filt Rate 21; Glucose 116 mg/dL (65-110); Magnesium 1.7 mg/dL (1.6-2.3); Phosphorus 3.9 mg/dL (2.5-4.5); Potassium 3.2 mmol/L (3.4-5.0); Sodium 144 mmol/L (137-145)
[2024-05-23] MEDS: LEVOTHYROXINE SODIUM 75 MCG TABLET PO (06:47)
[2024-05-23] MEDS: SUCRALFATE SUSP 100 MG/ML 10 ML UDC 1000 MG PO ×3 (06:47→16:50)
[2024-05-23] MEDS: FLUTICASONE/UMECLIDIN/VILANTER 100-62.5-25 MCG ELLIPTA 1 PUFF INHALATION (07:25)
[2024-05-23 07:55] LABS: Glucose Point of Care 133 mg/dl (65-105)
[2024-05-23] MEDS: MEROPENEM 500 MG/NS 100 ML 500 MG/100 ML BAG 100 MG IVPB (09:06)
[2024-05-23] MEDS: ROSUVASTATIN 20 MG TABLET 40 MG PO (09:08)
[2024-05-23] MEDS: SODIUM BICARBONATE TAB 650 MG TABLET PO ×2 (09:08→16:50)
[2024-05-23] MEDS: PANTOPRAZOLE SODIUM IV 40 MG VIAL IV PUSH ×2 (09:08→20:00)
[2024-05-23] MEDS: carvediloL 12.5 MG TABLET PO ×2 (09:08→19:59)
[2024-05-23] MEDS: amLODIPine BESYLATE 10 MG TABLET PO (09:08)
[2024-05-23] MEDS: guaiFENesin 12 HR 600 MG TABCR 1200 MG PO ×2 (09:08→19:59)
[2024-05-23] MEDS: POTASSIUM CHLORIDE 20 MEQ ER TABLET 40 MEQ PO (09:09)
[2024-05-23 11:31] LABS: Glucose Point of Care 191 mg/dl (65-105)
--- NOTE | 2024-05-23 11:51 | P.PNNP_ITS ---
Progress Note: A&P Assessment and Plan (1) Acute kidney injury: Code(s): N17.9 - Acute kidney failure, unspecified Status: Acute Assessment and Plan: * slow improvement noted * as noted on admission with a creatinine of 4.4mg/dl * unfortunately, only recent labs to compare to are from 2019 (see #2) * evaluation to date noted: * admission CT scan without obstruction * urine electrolytes prerenal * urine eosinophils negative * UA with blood and moderate proteinuria * CPK mildly elevated (probably not enough to affect kidney function) * suspect insult due several issues: * hemodynamic instability/shock * sepsis/infection (bacteremia) * prerenal factors * diuretic therapy [employer] * profound hypoxia * good/reasonable urine output noted * wean sodium bicarbonate * replace K+ as needed * continue to follow repeat labs and UOP (2) Stage 3a chronic kidney disease: Code(s): N18.31 - Chronic kidney disease, stage 3a Status: Chronic Assessment and Plan: * last creatinine noted at 1.4mg/dl (although this was from 2019) * presumably due to HTN, vascular disease (LE vascular disease, carotid stenosis, AAA, hyperlipidemia), diabetes, COPD/CJ and age-related change * cannot discount an element of CKD progression. (3) Septic shock: Code(s): A41.9 - Sepsis, unspecified organism; R65.21 - Severe sepsis with septic shock Status: Acute Assessment and Plan: * improving if not resolving * thought to be secondary to pneumonia and possibly UTI * s/p aggressive IVF resuscitation * off vasopressor therapy at this time * follow culture data - 05/11 blood cultures with Streptococcus pneumoniae * urine culture negative * repeat blood cultures are negative * completed course of antibiotics (4) Acute respiratory failure: Code(s): J96.00 - Acute respiratory failure, unspecified whether with hypoxia or hypercapnia Status: Acute Assessment and Plan: * due to severe/significant pneumonia as noted by admission imaging * no respiratory distress but noted profound hypoxia on admission * complicated by known history of COPD * off BiPAP except for sleeping and is on nasal cannula at 4 L per minute during the day * continue bronchodilators and s/p antibiotic therapy * Echo results noted * follow respiratory status (5) Systolic CHF: Code(s): I50.20 - Unspecified systolic (congestive) heart failure Status: Acute Assessment and Plan: * acute versus chronic? * Echo results noted: * left ventricular systolic function is moderately globally reduced - estimated at 35-40% * left ventricular diastolic function is grade I diastolic dysfunction * mild aortic valve sclerosis * trace mitral valve regurgitation * volume status appears stable * Cardiology following (6) Multifocal pneumonia: Code(s): J18.9 - Pneumonia, unspecified organism Status: Acute Assessment and Plan: * as noted by admission imaging * continue respiratory support * culture data noted * completed antibiotics (7) Anemia: Qualifiers: Anemia type: unspecified type Qualified Code(s): D64.9 - Anemia, unspecified Code(s): D64.9 - Anemia, unspecified Status: Acute Assessment and Plan: * due to LEIA, CKD, and acute illness * HOWEVER, he noted black stools which are guaiac positive * PRBC transfusion per protocol * on PPI * GI following * possible EGD next week? * plavix on hold * on Retacrit while inpatient * follow trend of H/H (8) Chronic obstructive pulmonary disease: Qualifiers: COPD type: emphysema Emphysema type: unspecified Qualified Code(s): J43.9 - Emphysema, unspecified Code(s): J44.9 - Chronic obstructive pulmonary disease, unspecified Status: Chronic Assessment and Plan: * known history * see #4 (9) Type 2 diabetes mellitus: Code(s): E11.9 - Type 2 diabetes mellitus without complications Status: Acute Assessment and Plan: * follow accu-cheks * glycemic control per hospitalists Will continue to follow intermittently. Subjective Date/time seen: 05/23/24 11:51 Interval history: Follow-up for acute kidney injury/acute renal failure on chronic kidney disease. Renal function/creatinine/BUN all continues to improve by trend of labs wih associated stable/good urine output; breathing/respiratory status continues to improve if not stabilize as well; no acute complaints voiced at the time of my visit; no events overnight or earlier this morning. Exam Narrative: General: elderly but WD/WN male in NAD Heart: normal S1 and S2; no rub Lungs: coarse breath sound but no wheezes Abdomen: soft, nontender, nondistended, positive bowel sounds Extremities: no cyanosis, clubbing or edema Skin: no nodules Objective Data Vital Signs Vital Signs: Vital Signs Temp Pulse Resp BP Pulse Ox O2 Del Method FiO2 05/23/24 09:08 65 05/23/24 07:35 82 18 05/23/24 07:25 80 18 05/23/24 07:25 80 18 92 Room Air 05/23/24 07:58 97.6 F 65 18 136/53 L 100 05/23/24 05:29 97.0 F L 60 20 137/54 L 95 05/23/24 02:53 78 20 05/22/24 20:43 82 20 05/22/24 20:28 94 Room Air 21 05/23/24 02:37 73 20 05/22/24 20:36 64 05/22/24 20:00 98.3 F 68 24 H 152/71 H 100 05/22/24 20:27 76 20 05/22/24 16:20 97.4 F L 63 18 131/46 L 95 Intake/Output Intake/Output: Intake & Output 05/20/24 05/21/24 05/22/24 05/23/24 23:59 23:59 23:59 23:59 Intake Total 3200 3850 1630 980 Output Total 1700 1902 1850 Balance 1500 1948 -220 980 Meds/Results Medications: Active Medications Generic Name Dose Route Start Last Admin Trade Name Freq PRN Reason Stop Dose Admin Acetaminophen 650 mg 05/11/24 18:35 05/21/24 09:16 Acetaminophen 325 Mg Tablet PO 650 mg Q4H PRN Administration Mild Pain (1-3) or Fever Acetylcysteine 200 mg 05/17/24 20:00 05/23/24 07:25 Acetylcysteine 20% Inhal Soln 800 Mg/4 Ml Vial INHALATION 200 mg Q6HRT SANGEETA Administration Albuterol/Ipratropium 3 ml 05/12/24 02:00 05/23/24 07:25 Ipratropium 0.5 Mg/Albuterol Sulfate 2.5 Mg Ampul.Neb 3 Ml INHALATION 3 ml Q6HRT SANGEETA Administration Amlodipine Besylate 10 mg 05/16/24 09:00 05/23/24 09:08 Amlodipine Besylate 10 Mg Tablet PO 10 mg DAILY SANGEETA Administration Aspirin 81 mg 05/12/24 09:00 05/16/24 09:04 Aspirin 81 Mg Enteric Tablet PO 81 mg DAILY SANGEETA Administration Carvedilol 12.5 mg 05/16/24 09:00 05/23/24 09:08 Carvedilol 12.5 Mg Tablet PO 12.5 mg Q12HR SANGEETA Administration Clopidogrel Bisulfate 75 mg 05/12/24 09:00 05/16/24 09:04 Clopidogrel Bisulfate 75 Mg Tablet PO 75 mg DAILY SANGEETA Administration Dextrose 12.5 gm 05/11/24 22:22 Dextrose 50% 25 Gm/50 Ml Syringe IV PUSH PRN PRN Hypoglycemia Protocol Epoetin Shimon-epbx 10,000 units 05/17/24 09:00 05/22/24 09:39 Epoetin Shimon-Epbx 10,000 Units/Ml Vial SUB-Q 10,000 units TUTHSA@09 SANGEETA Administration Famotidine 20 mg 05/14/24 09:00 05/16/24 09:00 Famotidine 20 Mg/2 Ml Vial IV PUSH 20 mg DAILY SANGEETA Administration Fluticasone/Umeclidinium/Vilanterol 1 puff 05/12/24 08:00 05/23/24 07:25 Fluticasone/Umeclidin/Vilanter 100-62.5-25 Mcg Ellipta INHALATION 1 puff DAILYRT SANGEETA Administration Glucagon 1 mg 05/11/24 22:22 Glucagon For Inj 1 Mg Vial IM PRN PRN Hypoglycemia Protocol Glucose 15 gm 05/11/24 22:22 Glucose Oral Gel 15 Gm Of Glucse In 37.5 Gm Tube PO PRN PRN Hypoglycemia Protocol Guaifenesin 1,200 mg 05/12/24 09:00 05/23/24 09:08 Guaifenesin 12 Hr 600 Mg Tabcr PO 1,200 mg Q12HR SANGEETA Administration Heparin Sodium (Porcine) 5,000 units 05/12/24 09:00 05/16/24 09:02 Heparin Sodium 5,000 Units/Ml Vial SUB-Q 5,000 units Q12HR SANGEETA Administration Hydralazine HCl 10 mg 05/15/24 17:22 05/16/24 00:13 Hydralazine Hcl 20 Mg/Ml Vial IV PUSH 10 mg Q6H PRN Administration Blood Pressure - High Dextrose 1,000 mls @ 100 mls/hr 05/11/24 22:22 Dextrose 5% 1,000 Ml IVPB PRN PRN Hypoglycemia Protocol Meropenem 500 mg in 100 mls @ 200 mls/hr 05/20/24 12:00 05/23/24 10:06 IVPB Infused Q12HR SANGEETA Infusion Insulin Aspart 4 - 8 units 05/15/24 21:00 05/23/24 11:42 Insulin Aspart (*Bkc) 100 Units/Ml SUB-Q Not Given 0800,1200,1700,2100 [facility] Protocol Levothyroxine Sodium 75 mcg 05/12/24 06:30 05/23/24 06:47 Levothyroxine Sodium 75 Mcg Tablet PO 75 mcg DAILY@0630 SANGEETA Administration Ondansetron HCl 4 mg 05/11/24 18:35 05/17/24 00:55 Ondansetron Inj 4 Mg/2 Ml Vial IV PUSH 4 mg Q4H PRN Administration Nausea Pantoprazole Sodium 40 mg 05/16/24 21:00 05/23/24 09:08 Pantoprazole Sodium Iv 40 Mg Vial IV PUSH 40 mg Q12HR SANGEETA Administration Rosuvastatin Calcium 40 mg 05/12/24 09:00 05/23/24 09:08 Rosuvastatin 20 Mg Tablet PO 40 mg DAILY SANGEETA Administration Sodium Bicarbonate 650 mg 05/23/24 09:00 05/23/24 09:08 Sodium Bicarbonate Tab 650 Mg Tablet PO 650 mg BID SANGEETA Administration Sucralfate 1,000 mg 05/17/24 16:30 05/23/24 11:57 Sucralfate Susp 100 Mg/Ml 10 Ml Udc PO 1,000 mg TIDAC SANGEETA Administration Radiology Results: ITS Impressions Chest/Abdomen/Pelvis CT 05/11/24 18:29 IMPRESSION: Extensive right upper lobe, middle lobe and left lower lobe consolidating pneumonia, with mild mediastinal reactive lymph node enlargement Occasional pulmonary nodules, likely related to pulmonary granulomatous disease 29 x 31 mm left adrenal low-attenuation mass, likely due to adrenal adenoma, less likely metastasis Normal appendix Minimal sigmoid diverticulosis; no evidence of diverticulitis Moderate prostatomegaly 2. Fusiform infrarenal abdominal aortic aneurysms, measuring up to 4 cm Central venous right common femoral catheter in right common femoral vein Renal Ultrasound 05/12/24 15:15 IMPRESSION: Unremarkable renal sonogram findings. Carotid Doppler Study 05/12/24 15:34 IMPRESSION: 1. <50% stenosis in the right internal carotid artery. 2. 50-69% stenosis in the left internal carotid artery. Modified Barium Swallow 05/20/24 14:24 IMPRESSION: 1. Normal modified barium swallow. 2. Please refer to the speech therapy report for recommendations. Head CT 05/21/24 21:34 IMPRESSION: No definite acute intracranial findings. 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 If still suspicious MRI is advised. Chest X-Ray 05/22/24 11:50 IMPRESSION: 1. Improved airspace opacities in right mid and upper lung zones and worsened airspace opacities in left mid and lower lung zones, consistent with pneumonia. 2. Small left pleural effusion. Chest CT 05/23/24 08:57 IMPRESSION: 1. Improved airspace opacities in right upper lobe and right middle lobe, consistent with pneumonia and atelectasis. 2. Left lower lobe airspace opacities with volume loss, consistent with atelectasis versus pneumonia. 3. Small pleural effusions. 4. Mild emphysema. 5. Pulmonary nodules measuring up to 6 mm, probably benign. Consider noncontrast low-dose chest CT in 6-12 months. 6. Partially visualized fusiform abdominal aortic aneurysm measuring 4.0 cm. Labs Labs: Laboratory Tests 05/23/24 04:54 05/23/24 04:54 Calcium 7.4 L Phosphorus 3.9 Magnesium 1.7 Albumin 3.1 L
--- NOTE | 2024-05-23 12:58 | WPDGIPROGNO ---
Progress Note: A&P Assessment and Plan (1) Melena: Code(s): K92.1 - Melena Status: Acute Assessment and Plan: No melena has been observed, and the hematocrit and creatinine levels are trending favorably. An elective EGD is scheduled for Sunday to definitively rule out any potential sources of melena. The patient's overall respiratory status has significantly improved. (2) Anemia: Qualifiers: Anemia type: unspecified type Qualified Code(s): D64.9 - Anemia, unspecified Code(s): D64.9 - Anemia, unspecified Status: Acute Subjective Date/time seen: 05/23/24 12:58 Objective Data Vital Signs Vital Signs: Vital Signs - 24 hr 05/22/24 13:53 05/22/24 14:20 05/22/24 14:17 Temperature 97.9 F 97.8 F Pulse Rate 67 60 73 Respiratory Rate 20 18 20 Blood Pressure 114/45 L 124/45 L Pulse Oximetry 93 93 Oxygen Delivery Fraction of Inspired Oxygen 05/22/24 14:35 05/22/24 15:20 05/22/24 15:57 Temperature 97.3 F L 97.4 F L Pulse Rate 73 65 63 Respiratory Rate 20 20 18 Blood Pressure 117/44 L 131/46 L Pulse Oximetry 100 95 Oxygen Delivery Fraction of Inspired Oxygen 05/22/24 16:20 05/22/24 20:27 05/22/24 20:00 Temperature 97.4 F L 98.3 F Pulse Rate 63 76 68 Respiratory Rate 18 20 24 H Blood Pressure 131/46 L 152/71 H Pulse Oximetry 95 100 Oxygen Delivery Fraction of Inspired Oxygen 05/22/24 20:36 05/23/24 02:37 05/22/24 20:28 Temperature Pulse Rate 64 73 Respiratory Rate 20 Blood Pressure Pulse Oximetry 94 Oxygen Delivery Room Air Fraction of Inspired Oxygen 21 05/22/24 20:43 05/23/24 02:53 05/23/24 05:29 Temperature 97.0 F L Pulse Rate 82 78 60 Respiratory Rate 20 20 20 Blood Pressure 137/54 L Pulse Oximetry 95 Oxygen Delivery Fraction of Inspired Oxygen 05/23/24 07:58 05/23/24 07:25 05/23/24 07:25 Temperature 97.6 F Pulse Rate 65 80 80 Respiratory Rate 18 18 18 Blood Pressure 136/53 L Pulse Oximetry 100 92 Oxygen Delivery Room Air Fraction of Inspired Oxygen 05/23/24 07:35 05/23/24 09:08 Temperature Pulse Rate 82 65 Respiratory Rate 18 Blood Pressure Pulse Oximetry Oxygen Delivery Fraction of Inspired Oxygen Intake/Output Intake/Output: Intake & Output 05/20/24 05/21/24 05/22/24 05/23/24 23:59 23:59 23:59 23:59 Intake Total 3200 3850 1630 740 Output Total 1700 1902 1850 Balance 1500 1948 -220 740 Meds/Results Medications: Active Medications Generic Name Dose Route Start Last Admin Trade Name Freq PRN Reason Stop Dose Admin Acetaminophen 650 mg 05/11/24 18:35 05/21/24 09:16 Acetaminophen 325 Mg Tablet PO 650 mg Q4H PRN Administration Mild Pain (1-3) or Fever Acetylcysteine 200 mg 05/17/24 20:00 05/23/24 07:25 Acetylcysteine 20% Inhal Soln 800 Mg/4 Ml Vial INHALATION 200 mg Q6HRT SANGEETA Administration Albuterol/Ipratropium 3 ml 05/12/24 02:00 05/23/24 07:25 Ipratropium 0.5 Mg/Albuterol Sulfate 2.5 Mg Ampul.Neb 3 Ml INHALATION 3 ml Q6HRT SANGEETA Administration Amlodipine Besylate 10 mg 05/16/24 09:00 05/23/24 09:08 Amlodipine Besylate 10 Mg Tablet PO 10 mg DAILY SANGEETA Administration Aspirin 81 mg 05/12/24 09:00 05/16/24 09:04 Aspirin 81 Mg Enteric Tablet PO 81 mg DAILY SANGEETA Administration Carvedilol 12.5 mg 05/16/24 09:00 05/23/24 09:08 Carvedilol 12.5 Mg Tablet PO 12.5 mg Q12HR SANGEETA Administration Clopidogrel Bisulfate 75 mg 05/12/24 09:00 05/16/24 09:04 Clopidogrel Bisulfate 75 Mg Tablet PO 75 mg DAILY [facility] Administration Dextrose 12.5 gm 05/11/24 22:22 Dextrose 50% 25 Gm/50 Ml Syringe IV PUSH PRN PRN Hypoglycemia Protocol Epoetin Shimon-epbx 10,000 units 05/17/24 09:00 05/22/24 09:39 Epoetin Shimon-Epbx 10,000 Units/Ml Vial SUB-Q 10,000 units TUTHSA@09 [facility] Administration Famotidine 20 mg 05/14/24 09:00 05/16/24 09:00 Famotidine 20 Mg/2 Ml Vial IV PUSH 20 mg DAILY SANGEETA Administration Fluticasone/Umeclidinium/Vilanterol 1 puff 05/12/24 08:00 05/23/24 07:25 Fluticasone/Umeclidin/Vilanter 100-62.5-25 Mcg Ellipta INHALATION 1 puff DAILYRT SANGEETA Administration Glucagon 1 mg 05/11/24 22:22 Glucagon For Inj 1 Mg Vial IM PRN PRN Hypoglycemia Protocol Glucose 15 gm 05/11/24 22:22 Glucose Oral Gel 15 Gm Of Glucse In 37.5 Gm Tube PO PRN PRN Hypoglycemia Protocol Guaifenesin 1,200 mg 05/12/24 09:00 05/23/24 09:08 Guaifenesin 12 Hr 600 Mg Tabcr PO 1,200 mg Q12HR SANGEETA Administration Heparin Sodium (Porcine) 5,000 units 05/12/24 09:00 05/16/24 09:02 Heparin Sodium 5,000 Units/Ml Vial SUB-Q 5,000 units Q12HR SANGEETA Administration Hydralazine HCl 10 mg 05/15/24 17:22 05/16/24 00:13 Hydralazine Hcl 20 Mg/Ml Vial IV PUSH 10 mg Q6H PRN Administration Blood Pressure - High Dextrose 1,000 mls @ 100 mls/hr 05/11/24 22:22 Dextrose 5% 1,000 Ml IVPB PRN PRN Hypoglycemia Protocol Meropenem 500 mg in 100 mls @ 200 mls/hr 05/20/24 12:00 05/23/24 10:06 IVPB Infused Q12HR SANGEETA Infusion Insulin Aspart 4 - 8 units 05/15/24 21:00 05/23/24 11:42 Insulin Aspart (*Bkc) 100 Units/Ml SUB-Q Not Given 0800,1200,1700,2100 [facility] Protocol Levothyroxine Sodium 75 mcg 05/12/24 06:30 05/23/24 06:47 Levothyroxine Sodium 75 Mcg Tablet PO 75 mcg DAILY@0630 SANGEETA Administration Ondansetron HCl 4 mg 05/11/24 18:35 05/17/24 00:55 Ondansetron Inj 4 Mg/2 Ml Vial IV PUSH 4 mg Q4H PRN Administration Nausea Pantoprazole Sodium 40 mg 05/16/24 21:00 05/23/24 09:08 Pantoprazole Sodium Iv 40 Mg Vial IV PUSH 40 mg Q12HR SANGEETA Administration Rosuvastatin Calcium 40 mg 05/12/24 09:00 05/23/24 09:08 Rosuvastatin 20 Mg Tablet PO 40 mg DAILY SANGEETA Administration Sodium Bicarbonate 650 mg 05/23/24 09:00 05/23/24 09:08 Sodium Bicarbonate Tab 650 Mg Tablet PO 650 mg BID SANGEETA Administration Sucralfate 1,000 mg 05/17/24 16:30 05/23/24 11:57 Sucralfate Susp 100 Mg/Ml 10 Ml Udc PO 1,000 mg TIDAC SANGEETA Administration Radiology Results: ITS Impressions Chest/Abdomen/Pelvis CT 05/11/24 18:29 IMPRESSION: Extensive right upper lobe, middle lobe and left lower lobe consolidating pneumonia, with mild mediastinal reactive lymph node enlargement Occasional pulmonary nodules, likely related to pulmonary granulomatous disease 29 x 31 mm left adrenal low-attenuation mass, likely due to adrenal adenoma, less likely metastasis Normal appendix Minimal sigmoid diverticulosis; no evidence of diverticulitis Moderate prostatomegaly 2. Fusiform infrarenal abdominal aortic aneurysms, measuring up to 4 cm Central venous right common femoral catheter in right common femoral vein Renal Ultrasound 05/12/24 15:15 IMPRESSION: Unremarkable renal sonogram findings. Carotid Doppler Study 05/12/24 15:34 IMPRESSION: 1. <50% stenosis in the right internal carotid artery. 2. 50-69% stenosis in the left internal carotid artery. Modified Barium Swallow 05/20/24 14:24 IMPRESSION: 1. Normal modified barium swallow. 2. Please refer to the speech therapy report for recommendations. Head CT 05/21/24 21:34 IMPRESSION: No definite acute intracranial findings. 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 If still suspicious MRI is advised. Chest X-Ray 05/22/24 11:50 IMPRESSION: 1. Improved airspace opacities in right mid and upper lung zones and worsened airspace opacities in left mid and lower lung zones, consistent with pneumonia. 2. Small left pleural effusion. Chest CT 05/23/24 08:57 IMPRESSION: 1. Improved airspace opacities in right upper lobe and right middle lobe, consistent with pneumonia and atelectasis. 2. Left lower lobe airspace opacities with volume loss, consistent with atelectasis versus pneumonia. 3. Small pleural effusions. 4. Mild emphysema. 5. Pulmonary nodules measuring up to 6 mm, probably benign. Consider noncontrast low-dose chest CT in 6-12 months. 6. Partially visualized fusiform abdominal aortic aneurysm measuring 4.0 cm. Labs Labs: Laboratory Results - last 24 hr 05/22/24 05/22/24 05/22/24 10:58 17:04 19:17 WBC RBC Hgb 8.2 L Hct 24.3 L MCV MCH MCHC RDW Plt Count MPV Immature Gran % (Auto) Neut % (Auto) Lymph % (Auto) [place] % (Auto) Eos % (Auto) Baso % (Auto) Lymph # (Auto) [place] # (Auto) Eos # (Auto) Baso # (Auto) Abs Immat Gran (auto) Absolute Neuts (auto) Absolute Nucleated RBC Nucleated RBC % Sodium Potassium Chloride Carbon Dioxide Anion Gap BUN Creatinine Estim Creat Clear Calc Estimated GFR Glucose POC Capillary Glucose 131 H Calcium Phosphorus Magnesium Albumin Blood Type O Positive Antibody Screen Negative Crossmatch See Detail 05/22/24 05/23/24 05/23/24 20:39 04:54 07:49 WBC 19.2 H RBC 3.04 L Hgb 8.9 L Hct 26.9 L MCV 88.5 MCH 29.3 MCHC 33.1 RDW 15.3 H Plt Count 349 MPV 9.5 Immature Gran % (Auto) 2.7 H Neut % (Auto) 81.2 H Lymph % (Auto) 6.2 L [place] % (Auto) 7.4 Eos % (Auto) 2.3 Baso % (Auto) 0.2 Lymph # (Auto) 1.20 [place] # (Auto) 1.4 H Eos # (Auto) 0.4 H Baso # (Auto) 0.0 Abs Immat Gran (auto) 0.52 H Absolute Neuts (auto) 15.6 H Absolute Nucleated RBC 0.000 Nucleated RBC % 0.0 Sodium 144 Potassium 3.2 L Chloride 114 H Carbon Dioxide 22 Anion Gap 8 BUN 71 H D Creatinine 3.00 H Estim Creat Clear Calc 19 Estimated GFR 21 L Glucose 116 H POC Capillary Glucose 208 H 133 H Calcium 7.4 L Phosphorus 3.9 Magnesium 1.7 Albumin 3.1 L Blood Type Antibody Screen Crossmatch 05/23/24 11:27 WBC RBC Hgb Hct MCV MCH MCHC RDW Plt Count MPV Immature Gran % (Auto) Neut % (Auto) Lymph % (Auto) [place] % (Auto) Eos % (Auto) Baso % (Auto) Lymph # (Auto) [place] # (Auto) Eos # (Auto) Baso # (Auto) Abs Immat Gran (auto) Absolute Neuts (auto) Absolute Nucleated RBC Nucleated RBC % Sodium Potassium Chloride Carbon Dioxide Anion Gap BUN Creatinine Estim Creat Clear Calc Estimated GFR Glucose POC Capillary Glucose 191 H Calcium Phosphorus Magnesium Albumin Blood Type Antibody Screen Crossmatch
--- NOTE | 2024-05-23 15:48 | P.PNIM_ITS ---
Progress Note: A&P Assessment and Plan (1) Acute respiratory failure: Code(s): J96.00 - Acute respiratory failure, unspecified whether with hypoxia or hypercapnia Status: Acute Assessment and Plan: Patient has baseline COPD and now presented with pneumonia and hypoxic respiratory failure. Initially needed Airvo/non-rebreather mask because of hypoxia. Trial of BiPAP started in ICU. Chest x-ray (05/18) showing airspace opacities in the right upper lobe and left lower lobe was worsening on the left. Weaned to room air. Solu-Cortef stopped. Pulmonary consulted and appreciate their input Patient not wearing bipap consistently; okay to stop bipap (patient does not wear this at home) Change bronchodilators to prn (2) Septic shock: Code(s): A41.9 - Sepsis, unspecified organism; R65.21 - Severe sepsis with septic shock Status: Acute Assessment and Plan: Septic shock secondary to pneumonia and UTI Patient received IV fluid bolus and started on pressors. Cautious IV fluids were given. Able to be weaned off pressors Hydrocortisone also started for pneumonia but now off. 05/11: Blood cultures growing Streptococcus pneumonia / bottles, pansensitive 05/12: Urine culture no growth 05/13: BCx negative. 05/14: Discontinued vancomycin and cefepime. Started ceftriaxone and doxycycline Urine Legionella Ag negative. Urine pneumococcal antigen positive. Lactic acid has normalized but WBC climbing over the past few days. MBS was okay. Finished a course of doxycycline. Previous provider discussed with ID pharmacist regarding antibiotics Repeat BCx 05/20: NGTD. Rocephin changed to meropenem 05/20. WBC down to 19K and dropping slowly. CXR (05/22) showing improved airspace disease RML, RUL but worse in the LML and LLL. CT chest w/o contrast showing improved airspace disease RML, RUL but LLL airspace opacities with volume loss and small pleural effusion. No fevers. No diarrhea. Clinically he appears improved. Continue Meropenem for now (3) Multifocal pneumonia: Code(s): J18.9 - Pneumonia, unspecified organism Status: Acute Assessment and Plan: See above Repeat imaging as above Pulmonary following Escalated antibiotics to meropenem on 05/20 Follow for now. (4) Acute kidney injury: Code(s): N17.9 - Acute kidney failure, unspecified Status: Acute Assessment and Plan: Baseline Cr unclear since last Cr was 1.4 in 2019. Creatinine of 4.4 and climbed to 7. Bun up to 165 but had been on steroids. Nephrology following and appreciate their input. Renal US unremarkable Cr better at 3.0 and BUN at 71. UOP not calculated today (Garcia removed). Continue to follow (5) Elevated troponin: Code(s): R79.89 - Other specified abnormal findings of blood chemistry Status: Acute Assessment and Plan: Mildly elevated troponin in the setting of septic shock and LIEA likely demand ischemia. Patient denies any chest pain. Troponin trending down 04/2524 Echo: LV dimension is mildly enlarged, LV systolic fxn moderately, globally reduced (EF 35-40%), mild concentric LVH, Grade I diastolic dysfunction, LAE and trace valvular disease. Continue Coreg. No DENIS, Entresto, Spirno or Empaglifloxin with renal failure. Following (6) Anemia: Qualifiers: Anemia type: unspecified type Qualified Code(s): D64.9 - Anemia, unspecified Code(s): D64.9 - Anemia, unspecified Status: Acute Assessment and Plan: Hgb 12.2 on admission but dropped to 6.5 on 05/17. FOBT positive stool Holding ASA, plavix and Heparin SQ Received 1U PRBCs on 05/17. PPI started GI consulted and EGD contemplated when stable. Appreciate GI input. hgb dropped to 7.0 so transfused 1U PRBC on 05/22. Monitor HH closely and transfuse as needed. Discussed with GI. Plan for endoscopy on Sunday. (7) Type 2 diabetes mellitus: Code(s): E11.9 - Type 2 diabetes mellitus without complications Status: Acute Assessment and Plan: The patient's blood glucose was reviewed on 05/23 Glucose remains well controlled. Continue AccuCheks covering with sliding scale. Hypoglycemia protocol available as needed. 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 Suspect his recent infections have made his chronic left sided weakness more prominent. Continue PT/OT. ASA on hold. Continue Crestor DVT prophylaxis - SCDs Code Status: Full code Subjective Date/time seen: 05/23/24 15:48 Interval history: 74yo male with COPD, HTN, HLD, DM and PAD here for weakness and syncope. [place] cold last night but was able to sleep. No n/v or diarrhea. Eating ok. No C P. Exam Narrative: AF 97.9 108/58 65 18 98% RA Gen - NARD sitting up in the chair Chest - decreased BS in the left base o/w distant CV - RRR S1/S2 Abd - Soft, NT/ND, Positive BS Ext - No pedal edema Neuro - Alert and appropriate Psych - Nml mood and affect Skin - Warm and dry Objective Data Vital Signs Vital Signs: Vital Signs - 24 hr 05/22/24 15:57 05/22/24 16:20 05/22/24 20:27 Temperature 97.4 F L 97.4 F L Pulse Rate 63 63 76 Respiratory Rate 18 18 20 Blood Pressure 131/46 L 131/46 L Pulse Oximetry 95 95 Oxygen Delivery Fraction of Inspired Oxygen 05/22/24 20:00 05/22/24 20:36 05/23/24 02:37 Temperature 98.3 F Pulse Rate 68 64 73 Respiratory Rate 24 H 20 Blood Pressure 152/71 H Pulse Oximetry 100 Oxygen Delivery Fraction of Inspired Oxygen 05/22/24 20:28 05/22/24 20:43 05/23/24 02:53 Temperature Pulse Rate 82 78 Respiratory Rate 20 20 Blood Pressure Pulse Oximetry 94 Oxygen Delivery Room Air Fraction of Inspired Oxygen 21 05/23/24 05:29 05/23/24 07:58 05/23/24 07:25 Temperature 97.0 F L 97.6 F Pulse Rate 60 65 80 Respiratory Rate 20 18 18 Blood Pressure 137/54 L 136/53 L Pulse Oximetry 95 100 92 Oxygen Delivery Room Air Fraction of Inspired Oxygen 05/23/24 07:25 05/23/24 07:35 05/23/24 09:08 Temperature Pulse Rate 80 82 65 Respiratory Rate 18 18 Blood Pressure Pulse Oximetry Oxygen Delivery Fraction of Inspired Oxygen 05/23/24 13:30 05/23/24 13:40 05/23/24 14:51 Temperature 97.9 F Pulse Rate 87 86 65 Respiratory Rate 20 20 18 Blood Pressure 108/58 L Pulse Oximetry 98 Oxygen Delivery Fraction of Inspired Oxygen Intake/Output Intake/Output: Intake & Output 05/20/24 05/21/24 05/22/24 05/23/24 23:59 23:59 23:59 23:59 Intake Total 3200 3850 1630 980 Output Total 1700 1902 1850 Balance 1500 1948 -220 980 Meds/Results Medications: Active Medications Generic Name Dose Route Start Last Admin Trade Name Freq PRN Reason Stop Dose Admin Acetaminophen 650 mg 05/11/24 18:35 05/21/24 09:16 Acetaminophen 325 Mg Tablet PO 650 mg Q4H PRN Administration Mild Pain (1-3) or Fever Acetylcysteine 200 mg 05/17/24 20:00 05/23/24 07:25 Acetylcysteine 20% Inhal Soln 800 Mg/4 Ml Vial INHALATION 200 mg Q6HRT SANGEETA Administration Albuterol/Ipratropium 3 ml 05/12/24 02:00 05/23/24 07:25 Ipratropium 0.5 Mg/Albuterol Sulfate 2.5 Mg Ampul.Neb 3 Ml INHALATION 3 ml Q6HRT SANGEETA Administration Amlodipine Besylate 10 mg 05/16/24 09:00 05/23/24 09:08 Amlodipine Besylate 10 Mg Tablet PO 10 mg DAILY SANGEETA Administration Aspirin 81 mg 05/12/24 09:00 05/16/24 09:04 Aspirin 81 Mg Enteric Tablet PO 81 mg DAILY SANGEETA Administration Carvedilol 12.5 mg 05/16/24 09:00 05/23/24 09:08 Carvedilol 12.5 Mg Tablet PO 12.5 mg Q12HR SANGEETA Administration Clopidogrel Bisulfate 75 mg 05/12/24 09:00 05/16/24 09:04 Clopidogrel Bisulfate 75 Mg Tablet PO 75 mg DAILY SANGEETA Administration Dextrose 12.5 gm 05/11/24 22:22 Dextrose 50% 25 Gm/50 Ml Syringe IV PUSH PRN PRN Hypoglycemia Protocol Epoetin Shimon-epbx 10,000 units 05/17/24 09:00 05/22/24 09:39 Epoetin Shimon-Epbx 10,000 Units/Ml Vial SUB-Q 10,000 units TUTHSA@09 SANGEETA Administration Famotidine 20 mg 05/14/24 09:00 05/16/24 09:00 Famotidine 20 Mg/2 Ml Vial IV PUSH 20 mg DAILY SANGEETA Administration Fluticasone/Umeclidinium/Vilanterol 1 puff 05/12/24 08:00 05/23/24 07:25 Fluticasone/Umeclidin/Vilanter 100-62.5-25 Mcg Ellipta INHALATION 1 puff DAILYRT SANGEETA Administration Glucagon 1 mg 05/11/24 22:22 Glucagon For Inj 1 Mg Vial IM PRN PRN Hypoglycemia Protocol Glucose 15 gm 05/11/24 22:22 Glucose Oral Gel 15 Gm Of Glucse In 37.5 Gm Tube PO PRN PRN Hypoglycemia Protocol Guaifenesin 1,200 mg 05/12/24 09:00 05/23/24 09:08 Guaifenesin 12 Hr 600 Mg Tabcr PO 1,200 mg Q12HR SANGEETA Administration Heparin Sodium (Porcine) 5,000 units 05/12/24 09:00 05/16/24 09:02 Heparin Sodium 5,000 Units/Ml Vial SUB-Q 5,000 units Q12HR SANGEETA Administration Hydralazine HCl 10 mg 05/15/24 17:22 05/16/24 00:13 Hydralazine Hcl 20 Mg/Ml Vial IV PUSH 10 mg Q6H PRN Administration Blood Pressure - High Dextrose 1,000 mls @ 100 mls/hr 05/11/24 22:22 Dextrose 5% 1,000 Ml IVPB PRN PRN Hypoglycemia Protocol Meropenem 500 mg in 100 mls @ 200 mls/hr 05/20/24 12:00 05/23/24 10:06 IVPB Infused Q12HR SANGEETA Infusion Insulin Aspart 4 - 8 units 05/15/24 21:00 05/23/24 11:42 Insulin Aspart (*Bkc) 100 Units/Ml SUB-Q Not Given 0800,1200,1700,2100 [facility] Protocol Levothyroxine Sodium 75 mcg 05/12/24 06:30 05/23/24 06:47 Levothyroxine Sodium 75 Mcg Tablet PO 75 mcg DAILY@0630 SANGEEAT Administration Ondansetron HCl 4 mg 05/11/24 18:35 05/17/24 00:55 Ondansetron Inj 4 Mg/2 Ml Vial IV PUSH 4 mg Q4H PRN Administration Nausea Pantoprazole Sodium 40 mg 05/16/24 21:00 05/23/24 09:08 Pantoprazole Sodium Iv 40 Mg Vial IV PUSH 40 mg Q12HR SANGEETA Administration Rosuvastatin Calcium 40 mg 05/12/24 09:00 05/23/24 09:08 Rosuvastatin 20 Mg Tablet PO 40 mg DAILY SANGEETA Administration Sodium Bicarbonate 650 mg 05/23/24 09:00 05/23/24 09:08 Sodium Bicarbonate Tab 650 Mg Tablet PO 650 mg BID SANGEETA Administration Sucralfate 1,000 mg 05/17/24 16:30 05/23/24 11:57 Sucralfate Susp 100 Mg/Ml 10 Ml Udc PO 1,000 mg TIDAC SANGEETA Administration Radiology Results: ITS Impressions Chest/Abdomen/Pelvis CT 05/11/24 18:29 IMPRESSION: Extensive right upper lobe, middle lobe and left lower lobe consolidating pneumonia, with mild mediastinal reactive lymph node enlargement Occasional pulmonary nodules, likely related to pulmonary granulomatous disease 29 x 31 mm left adrenal low-attenuation mass, likely due to adrenal adenoma, less likely metastasis Normal appendix Minimal sigmoid diverticulosis; no evidence of diverticulitis Moderate prostatomegaly 2. Fusiform infrarenal abdominal aortic aneurysms, measuring up to 4 cm Central venous right common femoral catheter in right common femoral vein Renal Ultrasound 05/12/24 15:15 IMPRESSION: Unremarkable renal sonogram findings. Carotid Doppler Study 05/12/24 15:34 IMPRESSION: 1. <50% stenosis in the right internal carotid artery. 2. 50-69% stenosis in the left internal carotid artery. Modified Barium Swallow 05/20/24 14:24 IMPRESSION: 1. Normal modified barium swallow. 2. Please refer to the speech therapy report for recommendations. Head CT 05/21/24 21:34 IMPRESSION: No definite acute intracranial findings. 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 If still suspicious MRI is advised. Chest X-Ray 05/22/24 11:50 IMPRESSION: 1. Improved airspace opacities in right mid and upper lung zones and worsened airspace opacities in left mid and lower lung zones, consistent with pneumonia. 2. Small left pleural effusion. Chest CT 05/23/24 08:57 IMPRESSION: 1. Improved airspace opacities in right upper lobe and right middle lobe, consistent with pneumonia and atelectasis. 2. Left lower lobe airspace opacities with volume loss, consistent with atelectasis versus pneumonia. 3. Small pleural effusions. 4. Mild emphysema. 5. Pulmonary nodules measuring up to 6 mm, probably benign. Consider noncontrast low-dose chest CT in 6-12 months. 6. Partially visualized fusiform abdominal aortic aneurysm measuring 4.0 cm. Labs Labs: Laboratory Results - last 24 hr 05/22/24 05/22/24 05/22/24 10:58 17:04 19:17 WBC RBC Hgb 8.2 L Hct 24.3 L MCV MCH MCHC RDW Plt Count MPV Immature Gran % (Auto) Neut % (Auto) Lymph % (Auto) [place] % (Auto) Eos % (Auto) Baso % (Auto) Lymph # (Auto) [place] # (Auto) Eos # (Auto) Baso # (Auto) Abs Immat Gran (auto) Absolute Neuts (auto) Absolute Nucleated RBC Nucleated RBC % Sodium Potassium Chloride Carbon Dioxide Anion Gap BUN Creatinine Estim Creat Clear Calc Estimated GFR Glucose POC Capillary Glucose 131 H Calcium Phosphorus Magnesium Albumin Crossmatch See Detail 05/22/24 05/23/24 05/23/24 20:39 04:54 07:49 WBC 19.2 H RBC 3.04 L Hgb 8.9 L Hct 26.9 L MCV 88.5 MCH 29.3 MCHC 33.1 RDW 15.3 H Plt Count 349 MPV 9.5 Immature Gran % (Auto) 2.7 H Neut % (Auto) 81.2 H Lymph % (Auto) 6.2 L [place] % (Auto) 7.4 Eos % (Auto) 2.3 Baso % (Auto) 0.2 Lymph # (Auto) 1.20 [place] # (Auto) 1.4 H Eos # (Auto) 0.4 H Baso # (Auto) 0.0 Abs Immat Gran (auto) 0.52 H Absolute Neuts (auto) 15.6 H Absolute Nucleated RBC 0.000 Nucleated RBC % 0.0 Sodium 144 Potassium 3.2 L Chloride 114 H Carbon Dioxide 22 Anion Gap 8 BUN 71 H D Creatinine 3.00 H Estim Creat Clear Calc 19 Estimated GFR 21 L Glucose 116 H POC Capillary Glucose 208 H 133 H Calcium 7.4 L Phosphorus 3.9 Magnesium 1.7 Albumin 3.1 L Crossmatch 05/23/24 11:27 WBC RBC Hgb Hct MCV MCH MCHC RDW Plt Count MPV Immature Gran % (Auto) Neut % (Auto) Lymph % (Auto) [place] % (Auto) Eos % (Auto) Baso % (Auto) Lymph # (Auto) [place] # (Auto) Eos # (Auto) Baso # (Auto) Abs Immat Gran (auto) Absolute Neuts (auto) Absolute Nucleated RBC Nucleated RBC % Sodium Potassium Chloride Carbon Dioxide Anion Gap BUN Creatinine Estim Creat Clear Calc Estimated GFR Glucose POC Capillary Glucose 191 H Calcium Phosphorus Magnesium Albumin Crossmatch
[2024-05-23 17:11] LABS: Glucose Point of Care 137 mg/dl (65-105)
[2024-05-23 19:47] LABS: Glucose Point of Care 151 mg/dl (65-105)
[2024-05-23] MEDS: MEROPENEM 500 MG/NS 100 ML 500 MG/100 ML BAG 200 MG IVPB (19:59)
--- NOTE | 2024-05-23 20:29 | PM.PNPUL ---
Subjective Date/time seen: 05/23/24 20:29 Interval history: 05/23/24; 05/21/24, new; Eladio Morrissey is a 74-year-old man with COPD, tobacco smoking, low EF followed by [facility]. He was admitted 05/11 with pneumococcal sepsis with positive blood cultures, multifocal pneumonia, septic shock, hypoxemia. His initial creatinine was elevated, a combination of chronic kidney disease and shock.He had acute anemia, melena, Plavix was stopped. H/H dropped to 6.5/19.2% May 17, he was transfused with improvement in his blood counts. He was close to intubation but was managed without this, was on Airvo and BiPAP. Now he is in IMU, CXR 05/18 showed consolidation of the RUL. He was on ceftriaxone. This was escalated to meropenem yesterday May 20 due to failure to persistence of infiltrate and symptoms. He continues to have acute renal failure with improvement in his creatinine, his H&H is stabilizing. He does not have any overt GI bleeding. A gastroenterology plans to perform an EGD prior to his discharge when he is more stable. When I saw the patient, he was waking from a nap, waiting for his to arrive. He smokes a pack per day, has not had respiratory problems in the past. 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 No occupational exposure. No service. He denies having any chronic lung issues, does not use inhalers at home. DATA * 05/11/[address] ; Extensive right upper lobe, middle lobe and left lower lobe consolidating pneumonia, with mild mediastinal reactive lymph node enlargement Occasional pulmonary nodules, likely related to pulmonary granulomatous disease 29 x 31 mm left adrenal low-attenuation mass, likely due to adrenal adenoma, less likely metastasis Normal appendix Minimal sigmoid diverticulosis; no evidence of diverticulitis Moderate prostatomegaly 2. Fusiform infrarenal abdominal aortic aneurysms, measuring up to 4 cm Central venous right common femoral catheter in right common femoral vein * CXR 05/18/24; IMPRESSION: 1. Airspace opacities in right upper lobe and left lower lobe with worsening on the left, consistent with pneumonia. Objective Data Vital Signs Vital Signs: Vital Signs - 24 hr 05/22/24 20:36 05/23/24 02:37 05/22/24 20:43 Temperature Pulse Rate 64 73 82 Respiratory Rate 20 20 Blood Pressure Pulse Oximetry Oxygen Delivery 05/23/24 02:53 05/23/24 05:29 05/23/24 07:58 Temperature 36.1 C L 36.4 C Pulse Rate 78 60 65 Respiratory Rate 20 20 18 Blood Pressure 137/54 L 136/53 L Pulse Oximetry 95 100 Oxygen Delivery 05/23/24 07:25 05/23/24 07:25 05/23/24 07:35 Temperature Pulse Rate 80 80 82 Respiratory Rate 18 18 18 Blood Pressure Pulse Oximetry 92 Oxygen Delivery Room Air 05/23/24 09:08 05/23/24 13:30 05/23/24 13:40 Temperature Pulse Rate 65 87 86 Respiratory Rate 20 20 Blood Pressure Pulse Oximetry Oxygen Delivery 05/23/24 14:51 05/23/24 19:59 Temperature 36.6 C Pulse Rate 65 65 Respiratory Rate 18 Blood Pressure 108/58 L Pulse Oximetry 98 Oxygen Delivery Intake/Output Intake/Output: Intake & Output 05/20/24 05/21/24 05/22/24 05/23/24 23:59 23:59 23:59 23:59 Intake Total 3200 3850 1630 1220 Output Total 1700 1902 1850 Balance 1500 1948 -220 1220 Meds/Results Medications: Active Medications Generic Name Dose Route Start Last Admin Trade Name Freq PRN Reason Stop Dose Admin Acetaminophen 650 mg 05/11/24 18:35 05/21/24 09:16 Acetaminophen 325 Mg Tablet PO 650 mg Q4H PRN Administration Mild Pain (1-3) or Fever Albuterol/Ipratropium 3 ml 05/23/24 18:27 Ipratropium 0.5 Mg/Albuterol Sulfate 2.5 Mg Ampul.Neb 3 Ml INHALATION Q6HRT PRN Shortness Of Breath Or Wheezing Amlodipine Besylate 10 mg 05/16/24 09:00 05/23/24 09:08 Amlodipine Besylate 10 Mg Tablet PO 10 mg DAILY SANGEETA Administration Aspirin 81 mg 05/12/24 09:00 05/16/24 09:04 Aspirin 81 Mg Enteric Tablet PO 81 mg DAILY SANGEETA Administration Carvedilol 12.5 mg 05/16/24 09:00 05/23/24 19:59 Carvedilol 12.5 Mg Tablet PO 12.5 mg Q12HR SANGEETA Administration Clopidogrel Bisulfate 75 mg 05/12/24 09:00 05/16/24 09:04 Clopidogrel Bisulfate 75 Mg Tablet PO 75 mg DAILY SANGEETA Administration Dextrose 12.5 gm 05/11/24 22:22 Dextrose 50% 25 Gm/50 Ml Syringe IV PUSH PRN PRN Hypoglycemia Protocol Epoetin Shimon-epbx 10,000 units 05/17/24 09:00 05/22/24 09:39 Epoetin Shimon-Epbx 10,000 Units/Ml Vial SUB-Q 10,000 units TUTHSA@09 SANGEETA Administration Fluticasone/Umeclidinium/Vilanterol 1 puff 05/12/24 08:00 05/23/24 07:25 Fluticasone/Umeclidin/Vilanter 100-62.5-25 Mcg Ellipta INHALATION 1 puff DAILYRT SANGEETA Administration Glucagon 1 mg 05/11/24 22:22 Glucagon For Inj 1 Mg Vial IM PRN PRN Hypoglycemia Protocol Glucose 15 gm 05/11/24 22:22 Glucose Oral Gel 15 Gm Of Glucse In 37.5 Gm Tube PO PRN PRN Hypoglycemia Protocol Guaifenesin 1,200 mg 05/12/24 09:00 05/23/24 19:59 Guaifenesin 12 Hr 600 Mg Tabcr PO 1,200 mg Q12HR SANGEETA Administration Hydralazine HCl 10 mg 05/15/24 17:22 05/16/24 00:13 Hydralazine Hcl 20 Mg/Ml Vial IV PUSH 10 mg Q6H PRN Administration Blood Pressure - High Dextrose 1,000 mls @ 100 mls/hr 05/11/24 22:22 Dextrose 5% 1,000 Ml IVPB PRN PRN Hypoglycemia Protocol Meropenem 500 mg in 100 mls @ 200 mls/hr 05/20/24 12:00 05/23/24 19:59 IVPB 200 mls/hr Q12HR SANGEETA Administration Insulin Aspart 4 - 8 units 05/24/24 08:00 Insulin Aspart (*Bkc) 100 Units/Ml SUB-Q TIDWM [facility] Protocol Levothyroxine Sodium 75 mcg 05/12/24 06:30 05/23/24 06:47 Levothyroxine Sodium 75 Mcg Tablet PO 75 mcg DAILY@0630 SANGEETA Administration Ondansetron HCl 4 mg 05/11/24 18:35 05/17/24 00:55 Ondansetron Inj 4 Mg/2 Ml Vial IV PUSH 4 mg Q4H PRN Administration Nausea Pantoprazole Sodium 40 mg 05/16/24 21:00 05/23/24 20:00 Pantoprazole Sodium Iv 40 Mg Vial IV PUSH 40 mg Q12HR SANGEETA Administration Rosuvastatin Calcium 40 mg 05/12/24 09:00 05/23/24 09:08 Rosuvastatin 20 Mg Tablet PO 40 mg DAILY SANGEETA Administration Sodium Bicarbonate 650 mg 05/23/24 09:00 05/23/24 16:50 Sodium Bicarbonate Tab 650 Mg Tablet PO 650 mg BID SANGEETA Administration Sucralfate 1,000 mg 05/17/24 16:30 05/23/24 16:50 Sucralfate Susp 100 Mg/Ml 10 Ml Udc PO 1,000 mg TIDAC SANGEETA Administration Radiology Results: ITS Impressions Chest/Abdomen/Pelvis CT 05/11/24 18:29 IMPRESSION: Extensive right upper lobe, middle lobe and left lower lobe consolidating pneumonia, with mild mediastinal reactive lymph node enlargement Occasional pulmonary nodules, likely related to pulmonary granulomatous disease 29 x 31 mm left adrenal low-attenuation mass, likely due to adrenal adenoma, less likely metastasis Normal appendix Minimal sigmoid diverticulosis; no evidence of diverticulitis Moderate prostatomegaly 2. Fusiform infrarenal abdominal aortic aneurysms, measuring up to 4 cm Central venous right common femoral catheter in right common femoral vein Renal Ultrasound 05/12/24 15:15 IMPRESSION: Unremarkable renal sonogram findings. Carotid Doppler Study 05/12/24 15:34 IMPRESSION: 1. <50% stenosis in the right internal carotid artery. 2. 50-69% stenosis in the left internal carotid artery. Modified Barium Swallow 05/20/24 14:24 IMPRESSION: 1. Normal modified barium swallow. 2. Please refer to the speech therapy report for recommendations. Head CT 05/21/24 21:34 IMPRESSION: No definite acute intracranial findings. 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 If still suspicious MRI is advised. Chest X-Ray 05/22/24 11:50 IMPRESSION: 1. Improved airspace opacities in right mid and upper lung zones and worsened airspace opacities in left mid and lower lung zones, consistent with pneumonia. 2. Small left pleural effusion. Chest CT 05/23/24 08:57 IMPRESSION: 1. Improved airspace opacities in right upper lobe and right middle lobe, consistent with pneumonia and atelectasis. 2. Left lower lobe airspace opacities with volume loss, consistent with atelectasis versus pneumonia. 3. Small pleural effusions. 4. Mild emphysema. 5. Pulmonary nodules measuring up to 6 mm, probably benign. Consider noncontrast low-dose chest CT in 6-12 months. 6. Partially visualized fusiform abdominal aortic aneurysm measuring 4.0 cm. Labs Labs: Laboratory Results - last 24 hr 05/22/24 05/23/24 05/23/24 20:39 04:54 07:49 WBC 19.2 H RBC 3.04 L Hgb 8.9 L Hct 26.9 L MCV 88.5 MCH 29.3 MCHC 33.1 RDW 15.3 H Plt Count 349 MPV 9.5 Immature Gran % (Auto) 2.7 H Neut % (Auto) 81.2 H Lymph % (Auto) 6.2 L [place] % (Auto) 7.4 Eos % (Auto) 2.3 Baso % (Auto) 0.2 Lymph # (Auto) 1.20 [place] # (Auto) 1.4 H Eos # (Auto) 0.4 H Baso # (Auto) 0.0 Abs Immat Gran (auto) 0.52 H Absolute Neuts (auto) 15.6 H Absolute Nucleated RBC 0.000 Nucleated RBC % 0.0 Sodium 144 Potassium 3.2 L Chloride 114 H Carbon Dioxide 22 Anion Gap 8 BUN 71 H D Creatinine 3.00 H Estim Creat Clear Calc 19 Estimated GFR 21 L Glucose 116 H POC Capillary Glucose 208 H 133 H Calcium 7.4 L Phosphorus 3.9 Magnesium 1.7 Albumin 3.1 L 05/23/24 05/23/24 05/23/24 11:27 17:08 19:43 WBC RBC Hgb Hct MCV MCH MCHC RDW Plt Count MPV Immature Gran % (Auto) Neut % (Auto) Lymph % (Auto) [place] % (Auto) Eos % (Auto) Baso % (Auto) Lymph # (Auto) [place] # (Auto) Eos # (Auto) Baso # (Auto) Abs Immat Gran (auto) Absolute Neuts (auto) Absolute Nucleated RBC Nucleated RBC % Sodium Potassium Chloride Carbon Dioxide Anion Gap BUN Creatinine Estim Creat Clear Calc Estimated GFR Glucose POC Capillary Glucose 191 H 137 H 151 H Calcium Phosphorus Magnesium Albumin
[2024-05-24] VITALS (7 sets, daily range): BP systolic 133–137; BP diastolic 46–66; PULSE 64–72; RESP 14–24; TEMP 36.2–36.7; O2SAT 92–97
[2024-05-24 06:13] LABS: Basophils Absolute Auto 0.1 K/mm3 (0.0-0.1); Basophils Percent Auto 0.4 % (0.2-1.2); Eosinophils Absolute Auto 0.4 K/mm3 (0-0.3); Eosinophils Percent Auto 2.5 % (0-4.4); Hematocrit 24.3 % (42.0-52.0); Hemoglobin 7.9 g/dL (14.0-18.0); Immature Granulocyte Absolute 0.23 K/mm3 (0.00-0.031); Immature Granulocyte Percent A 1.4 % (0-0.5); Lymphocytes Percent Auto 7.4 % (18.3-44.2); Mean Corpuscular HGB Conc 32.5 g/dl (32-36); Mean Corpuscular Hemoglobin 28.9 pg (26-34); Mean Platelet Volume 9.6 fl (7.4-10.4); Monocytes Absolute Auto 1.6 K/mm3 (0.1-0.6); Monocytes Percent Auto 9.9 % (2.6-8.5); Neutrophils Absolute Auto 12.8 K/mm3 (1.3-6.7); Neutrophils Percent Auto 78.4 % (45.5-73.1); Platelet Count Result 326 k/mm3 (150-375); Red Blood Count 2.73 M/mm3 (4.6-6.20); Red Cell Distribution Width 15.4 % (11.5-14.5); White Blood Count 16.3 K/mm3 (4.5-10.0)
[2024-05-24 06:30] LABS: Albumin Level 2.9 g/dL (3.5-5.1); Anion Gap 6 mmol/L (4-12); Blood Urea Nitrogen 56 mg/dL (9-20); Calcium 7.4 mg/dL (8.4-10.2); Carbon Dioxide 22 mmol/L (22-30); Chloride 114 mmol/L (98-107); Estimated CRCL calculation 22 ml/min; Estimated Glomerular Filt Rate 24; Glucose 108 mg/dL (65-110); Magnesium 1.5 mg/dL (1.6-2.3); Phosphorus 3.7 mg/dL (2.5-4.5); Potassium 3.4 mmol/L (3.4-5.0); Sodium 142 mmol/L (137-145)
[2024-05-24] MEDS: SUCRALFATE SUSP 100 MG/ML 10 ML UDC 1000 MG PO ×3 (06:49→16:14)
[2024-05-24] MEDS: LEVOTHYROXINE SODIUM 75 MCG TABLET PO (06:49)
[2024-05-24] MEDS: FLUTICASONE/UMECLIDIN/VILANTER 100-62.5-25 MCG ELLIPTA 1 PUFF INHALATION (08:10)
[2024-05-24] MEDS: POTASSIUM CHLORIDE 20 MEQ ER TABLET 40 MEQ PO (08:22)
[2024-05-24] MEDS: MAGNESIUM SULF 2 GM/WATER 50ML 2 GM/50 ML BAG IVPB (08:23)
[2024-05-24] MEDS: PANTOPRAZOLE SODIUM IV 40 MG VIAL IV PUSH ×2 (08:26→20:58)
[2024-05-24] MEDS: ROSUVASTATIN 20 MG TABLET 40 MG PO (08:26)
[2024-05-24] MEDS: SODIUM BICARBONATE TAB 650 MG TABLET PO ×2 (08:27→16:14)
[2024-05-24] MEDS: carvediloL 12.5 MG TABLET PO ×2 (08:27→20:57)
[2024-05-24] MEDS: guaiFENesin 12 HR 600 MG TABCR 1200 MG PO ×2 (08:27→20:57)
[2024-05-24] MEDS: amLODIPine BESYLATE 10 MG TABLET PO (08:27)
[2024-05-24 08:31] LABS: Glucose Point of Care 115 mg/dl (65-105)
[2024-05-24] MEDS: EPOETIN ALFA-EPBX 10,000 UNITS/ML VIAL 10000 UNITS SUB-Q (09:14)
[2024-05-24] MEDS: MEROPENEM 500 MG/NS 100 ML 500 MG/100 ML BAG 200 MG IVPB ×2 (10:39→20:57)
[2024-05-24 11:35] LABS: Glucose Point of Care 148 mg/dl (65-105)
--- NOTE | 2024-05-24 12:43 | WPDGIPROGNO ---
Progress Note: A&P Assessment and Plan (1) Melena: Code(s): K92.1 - Melena Status: Acute Assessment and Plan: no more episodes hgb stable mid 7 egd on sunday (2) Acute blood loss anemia: Code(s): D62 - Acute posthemorrhagic anemia Status: Acute Assessment and Plan: anemia probably is multifactorial but also will assess with egd on sunday (3) Septic shock: Code(s): A41.9 - Sepsis, unspecified organism; R65.21 - Severe sepsis with septic shock Status: Acute Assessment and Plan: resolved (4) LEIA (acute kidney injury): Code(s): N17.9 - Acute kidney failure, unspecified Status: Acute Assessment and Plan: renal function slowly improving, tutoring assistant on board (5) Multifocal pneumonia: Code(s): J18.9 - Pneumonia, unspecified organism Status: Acute Assessment and Plan: symptomatically much better (6) Chronic obstructive pulmonary disease: Qualifiers: COPD type: emphysema Emphysema type: unspecified Qualified Code(s): J43.9 - Emphysema, unspecified Code(s): J44.9 - Chronic obstructive pulmonary disease, unspecified Status: Chronic Subjective Date/time seen: 05/24/24 12:43 Interval history: he is feeling comfortable, having lunch and denies any obvious gib breathing better Review of Systems Review of Systems: All systems reviewed & are unremarkable except as noted in HPI and below Exam Narrative: Gen - NARD sitting up in the chair, comfortable and pleasant, no distress HEENT- normal pupils neck: supple Chest - decreased BS in the left base o/w distant CV - RRR S1/S2 Abd - Soft, NT/ND, Positive BS Ext - No pedal edema Neuro - Alert and appropriate Psych - Nml mood and affect Skin - Warm and dry Objective Data Vital Signs Vital Signs: Vital Signs - 24 hr 05/23/24 13:30 05/23/24 13:40 05/23/24 14:51 Temperature 97.9 F Pulse Rate 87 86 65 Respiratory Rate 20 20 18 Blood Pressure 108/58 L Pulse Oximetry 98 Oxygen Delivery 05/23/24 19:59 05/23/24 20:00 05/23/24 20:00 Temperature 97.4 F L Pulse Rate 65 63 Respiratory Rate 12 Blood Pressure 119/51 L Pulse Oximetry 96 Oxygen Delivery Room Air 05/24/24 05:57 05/24/24 08:10 05/24/24 08:27 Temperature 98.1 F Pulse Rate 72 72 Respiratory Rate 14 Blood Pressure 133/66 Pulse Oximetry 92 95 Oxygen Delivery Room Air 05/24/24 08:00 Temperature 97.9 F Pulse Rate 64 Respiratory Rate 17 Blood Pressure 134/46 L Pulse Oximetry 97 Oxygen Delivery Intake/Output Intake/Output: Intake & Output 05/21/24 05/22/24 05/23/24 05/24/24 23:59 23:59 23:59 23:59 Intake Total 3850 1630 1320 550 Output Total 1902 1850 Balance 1948 -220 1320 550 Meds/Results Medications: Active Medications Generic Name Dose Route Start Last Admin Trade Name Freq PRN Reason Stop Dose Admin Acetaminophen 650 mg 05/11/24 18:35 05/21/24 09:16 Acetaminophen 325 Mg Tablet PO 650 mg Q4H PRN Administration Mild Pain (1-3) or Fever Albuterol/Ipratropium 3 ml 05/23/24 18:27 Ipratropium 0.5 Mg/Albuterol Sulfate 2.5 Mg Ampul.Neb 3 Ml INHALATION Q6HRT PRN Shortness Of Breath Or Wheezing Amlodipine Besylate 10 mg 05/16/24 09:00 05/24/24 08:27 Amlodipine Besylate 10 Mg Tablet PO 10 mg DAILY SANGEETA Administration Aspirin 81 mg 05/12/24 09:00 05/16/24 09:04 Aspirin 81 Mg Enteric Tablet PO 81 mg DAILY SANGEETA Administration Carvedilol 12.5 mg 05/16/24 09:00 05/24/24 08:27 Carvedilol 12.5 Mg Tablet PO 12.5 mg Q12HR SANGEETA Administration Clopidogrel Bisulfate 75 mg 05/12/24 09:00 05/16/24 09:04 Clopidogrel Bisulfate 75 Mg Tablet PO 75 mg DAILY SANGEETA Administration Dextrose 12.5 gm 05/11/24 22:22 Dextrose 50% 25 Gm/50 Ml Syringe IV PUSH PRN PRN Hypoglycemia Protocol Epoetin Shimon-epbx 10,000 units 05/17/24 09:00 05/24/24 09:14 Epoetin Shimon-Epbx 10,000 Units/Ml Vial SUB-Q 10,000 units [facility]@09 SANGEETA Administration Fluticasone/Umeclidinium/Vilanterol 1 puff 05/12/24 08:00 05/24/24 08:10 Fluticasone/Umeclidin/Vilanter 100-62.5-25 Mcg Ellipta INHALATION 1 puff DAILYRT SANGEETA Administration Glucagon 1 mg 05/11/24 22:22 Glucagon For Inj 1 Mg Vial IM PRN PRN Hypoglycemia Protocol Glucose 15 gm 05/11/24 22:22 Glucose Oral Gel 15 Gm Of Glucse In 37.5 Gm Tube PO PRN PRN Hypoglycemia Protocol Guaifenesin 1,200 mg 05/12/24 09:00 05/24/24 08:27 Guaifenesin 12 Hr 600 Mg Tabcr PO 1,200 mg Q12HR SANGEETA Administration Hydralazine HCl 10 mg 05/15/24 17:22 05/16/24 00:13 Hydralazine Hcl 20 Mg/Ml Vial IV PUSH 10 mg Q6H PRN Administration Blood Pressure - High Dextrose 1,000 mls @ 100 mls/hr 05/11/24 22:22 Dextrose 5% 1,000 Ml IVPB PRN PRN Hypoglycemia Protocol Meropenem 500 mg in 100 mls @ 200 mls/hr 05/20/24 12:00 05/24/24 11:09 IVPB Infused Q12HR SANGEETA Infusion Insulin Aspart 4 - 8 units 05/24/24 08:00 05/24/24 11:37 Insulin Aspart (*Bkc) 100 Units/Ml SUB-Q Not Given TIDWM SANGEETA Protocol Levothyroxine Sodium 75 mcg 05/12/24 06:30 05/24/24 06:49 Levothyroxine Sodium 75 Mcg Tablet PO 75 mcg DAILY@0630 SANGEETA Administration Ondansetron HCl 4 mg 05/11/24 18:35 05/17/24 00:55 Ondansetron Inj 4 Mg/2 Ml Vial IV PUSH 4 mg Q4H PRN Administration Nausea Pantoprazole Sodium 40 mg 05/16/24 21:00 05/24/24 08:26 Pantoprazole Sodium Iv 40 Mg Vial IV PUSH 40 mg Q12HR SANGEETA Administration Rosuvastatin Calcium 40 mg 05/12/24 09:00 05/24/24 08:26 Rosuvastatin 20 Mg Tablet PO 40 mg DAILY SANGEETA Administration Sodium Bicarbonate 650 mg 05/23/24 09:00 05/24/24 08:27 Sodium Bicarbonate Tab 650 Mg Tablet PO 650 mg BID SANGEETA Administration Sucralfate 1,000 mg 05/17/24 16:30 05/24/24 11:37 Sucralfate Susp 100 Mg/Ml 10 Ml Udc PO 1,000 mg TIDAC SANGEETA Administration Radiology Results: ITS Impressions Chest/Abdomen/Pelvis CT 05/11/24 18:29 IMPRESSION: Extensive right upper lobe, middle lobe and left lower lobe consolidating pneumonia, with mild mediastinal reactive lymph node enlargement Occasional pulmonary nodules, likely related to pulmonary granulomatous disease 29 x 31 mm left adrenal low-attenuation mass, likely due to adrenal adenoma, less likely metastasis Normal appendix Minimal sigmoid diverticulosis; no evidence of diverticulitis Moderate prostatomegaly 2. Fusiform infrarenal abdominal aortic aneurysms, measuring up to 4 cm Central venous right common femoral catheter in right common femoral vein Renal Ultrasound 05/12/24 15:15 IMPRESSION: Unremarkable renal sonogram findings. Carotid Doppler Study 05/12/24 15:34 IMPRESSION: 1. <50% stenosis in the right internal carotid artery. 2. 50-69% stenosis in the left internal carotid artery. Modified Barium Swallow 05/20/24 14:24 IMPRESSION: 1. Normal modified barium swallow. 2. Please refer to the speech therapy report for recommendations. Head CT 05/21/24 21:34 IMPRESSION: No definite acute intracranial findings. 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 If still suspicious MRI is advised. Chest X-Ray 05/22/24 11:50 IMPRESSION: 1. Improved airspace opacities in right mid and upper lung zones and worsened airspace opacities in left mid and lower lung zones, consistent with pneumonia. 2. Small left pleural effusion. Chest CT 05/23/24 08:57 IMPRESSION: 1. Improved airspace opacities in right upper lobe and right middle lobe, consistent with pneumonia and atelectasis. 2. Left lower lobe airspace opacities with volume loss, consistent with atelectasis versus pneumonia. 3. Small pleural effusions. 4. Mild emphysema. 5. Pulmonary nodules measuring up to 6 mm, probably benign. Consider noncontrast low-dose chest CT in 6-12 months. 6. Partially visualized fusiform abdominal aortic aneurysm measuring 4.0 cm. Labs Labs: Laboratory Results - last 24 hr 05/23/24 05/23/24 05/24/24 17:08 19:43 05:30 WBC 16.3 H RBC 2.73 L Hgb 7.9 L Hct 24.3 L MCV 89.0 MCH 28.9 MCHC 32.5 RDW 15.4 H Plt Count 326 MPV 9.6 Immature Gran % (Auto) 1.4 H Neut % (Auto) 78.4 H Lymph % (Auto) 7.4 L [place] % (Auto) 9.9 H Eos % (Auto) 2.5 Baso % (Auto) 0.4 Lymph # (Auto) 1.20 [place] # (Auto) 1.6 H Eos # (Auto) 0.4 H Baso # (Auto) 0.1 Abs Immat Gran (auto) 0.23 H Absolute Neuts (auto) 12.8 H Absolute Nucleated RBC 0.000 Nucleated RBC % 0.0 Sodium 142 Potassium 3.4 Chloride 114 H Carbon Dioxide 22 Anion Gap 6 BUN 56 H D Creatinine 2.60 H Estim Creat Clear Calc 22 Estimated GFR 24 L Glucose 108 POC Capillary Glucose 137 H 151 H Calcium 7.4 L Phosphorus 3.7 Magnesium 1.5 L Albumin 2.9 L 05/24/24 05/24/24 08:18 11:33 WBC RBC Hgb Hct MCV MCH MCHC RDW Plt Count MPV Immature Gran % (Auto) Neut % (Auto) Lymph % (Auto) [place] % (Auto) Eos % (Auto) Baso % (Auto) Lymph # (Auto) [place] # (Auto) Eos # (Auto) Baso # (Auto) Abs Immat Gran (auto) Absolute Neuts (auto) Absolute Nucleated RBC Nucleated RBC % Sodium Potassium Chloride Carbon Dioxide Anion Gap BUN Creatinine Estim Creat Clear Calc Estimated GFR Glucose POC Capillary Glucose 115 H 148 H Calcium Phosphorus Magnesium Albumin
--- NOTE | 2024-05-24 13:53 | P.PNIM_ITS ---
Progress Note: A&P Assessment and Plan (1) Acute respiratory failure: Code(s): J96.00 - Acute respiratory failure, unspecified whether with hypoxia or hypercapnia Status: Acute Assessment and Plan: Patient presented with SOB and found to have PNA and hypoxic respiratory failure. Initially needed Airvo/non-rebreather mask then a trial of BiPAP started in ICU. Chest x-ray (05/18) showing airspace opacities in the right upper lobe and left lower lobe was worsening on the left. Treated with abx. Weaned to room air. Solu-Cortef stopped. Pulmonary consulted and appreciate their input Patient not wearing bipap consistently; okay to stop bipap (patient does not wear this at home) Bronchodilators prn. Remains on room air (2) Septic shock: Code(s): A41.9 - Sepsis, unspecified organism; R65.21 - Severe sepsis with septic shock Status: Acute Assessment and Plan: Septic shock secondary to pneumonia and UTI Patient received IV fluid bolus and started on pressors. Cautious IV fluids were given. Able to be weaned off pressors Hydrocortisone also started for pneumonia but now off. 05/11: Blood cultures growing Streptococcus pneumonia 07/20 bottles, pansensitive 05/12: Urine culture no growth 05/13: BCx negative. 05/14: Discontinued vancomycin and cefepime. Started ceftriaxone and doxycycline Urine Legionella Ag negative. Urine pneumococcal antigen positive. Finished a course of doxycycline. Lactic acid has normalized but WBC was climbing. MBS was okay. Previous provider discussed with ID pharmacist regarding antibiotics Repeat BCx 05/20: NGTD. Rocephin changed to meropenem 05/20. WBC down to 16K. CXR (05/22) showing improved airspace disease RML, RUL but worse in the LML and LLL. CT chest w/o contrast showing improved airspace disease RML, RUL but LLL airspace opacities with volume loss and small pleural effusion. No fevers. No diarrhea. Clinically he appears improved. Continue Meropenem for now to complete a 7 day course (3) Multifocal pneumonia: Code(s): J18.9 - Pneumonia, unspecified organism Status: Acute Assessment and Plan: See above Repeat imaging as above Pulmonary following Escalated antibiotics to meropenem on 05/20 Follow for now. (4) Acute kidney injury: Code(s): N17.9 - Acute kidney failure, unspecified Status: Acute Assessment and Plan: Baseline Cr unclear since last Cr was 1.4 in 2019. Creatinine of 4.4 and climbed to 7. Bun up to 165 but had been on steroids. Nephrology following and appreciate their input. Renal US unremarkable Cr better at 2.6 and BUN at 56. Continue to follow (5) Elevated troponin: Code(s): R79.89 - Other specified abnormal findings of blood chemistry Status: Acute Assessment and Plan: Mildly elevated troponin in the setting of septic shock and LEIA likely demand ischemia. Patient denies any chest pain. Troponin trending down 05/12 Echo: LV dimension is mildly enlarged, LV systolic fxn moderately, globally reduced (EF 35-40%), mild concentric LVH, Grade I diastolic dysfunction, LAE and trace valvular disease. Continue Coreg. No DENIS, Entresto, Spirono or Empaglifloxin with renal failure. Following (6) Anemia: Qualifiers: Anemia type: unspecified type Qualified Code(s): D64.9 - Anemia, unspecified Code(s): D64.9 - Anemia, unspecified Status: Acute Assessment and Plan: Hgb 12.2 on admission but dropped to 6.5 on 05/17. FOBT positive stool Holding ASA, plavix and Heparin SQ Received 1U PRBCs on 05/17. Hgb up to 7.9 PPI started GI consulted and appreciate their input. Hgb dropped to 7.0 so transfused 1U PRBC on 05/22. Hgb up to 8.9 but back down again. Monitor HH closely and transfuse as needed. Discussed with GI. Plan for endoscopy on Sunday. (7) Type 2 diabetes mellitus: Code(s): E11.9 - Type 2 diabetes mellitus without complications Status: Acute Assessment and Plan: The patient's blood glucose was reviewed on 05/24 Glucose remains well controlled. Continue AccuCheks covering with sliding scale. Hypoglycemia protocol available as needed. 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 Suspect his recent infections have made his chronic left sided weakness more prominent. Continue PT/OT. ASA on hold. Continue Crestor DVT prophylaxis - SCDs Code Status: Full code Subjective Date/time seen: 05/24/24 13:53 Interval history: 74yo male with COPD, HTN, HLD, DM and PAD here for weakness and syncope. Slept well last night. No Chest pain or shortness of breath. No nausea or vomiting Exam Narrative: AF 97.9 134/46 72 17 95% RA Gen - NARD sitting up in the chair Chest -bibasilar rhonchi otherwise clear. CV - RRR S1/S2 Abd - Soft, NT/ND, Positive BS Ext - No pedal edema Psych - Nml mood and affect Skin - Warm and dry Objective Data Vital Signs Vital Signs: Vital Signs - 24 hr 05/23/24 14:51 05/23/24 19:59 05/23/24 20:00 Temperature 97.9 F 97.4 F L Pulse Rate 65 65 63 Respiratory Rate 18 12 Blood Pressure 108/58 L 119/51 L Pulse Oximetry 98 96 Oxygen Delivery 05/23/24 20:00 05/24/24 05:57 05/24/24 08:10 Temperature 98.1 F Pulse Rate 72 Respiratory Rate 14 Blood Pressure 133/66 Pulse Oximetry 92 95 Oxygen Delivery Room Air Room Air 05/24/24 08:27 05/24/24 08:00 Temperature 97.9 F Pulse Rate 72 64 Respiratory Rate 17 Blood Pressure 134/46 L Pulse Oximetry 97 Oxygen Delivery Intake/Output Intake/Output: Intake & Output 05/21/24 05/22/24 05/23/24 05/24/24 23:59 23:59 23:59 23:59 Intake Total 3850 1630 1320 730 Output Total 1902 1850 Balance 1948 -220 1320 730 Meds/Results Medications: Active Medications Generic Name Dose Route Start Last Admin Trade Name Freq PRN Reason Stop Dose Admin Acetaminophen 650 mg 05/11/24 18:35 05/21/24 09:16 Acetaminophen 325 Mg Tablet PO 650 mg Q4H PRN Administration Mild Pain (1-3) or Fever Albuterol/Ipratropium 3 ml 05/23/24 18:27 Ipratropium 0.5 Mg/Albuterol Sulfate 2.5 Mg Ampul.Neb 3 Ml INHALATION Q6HRT PRN Shortness Of Breath Or Wheezing Amlodipine Besylate 10 mg 05/16/24 09:00 05/24/24 08:27 Amlodipine Besylate 10 Mg Tablet PO 10 mg DAILY SANGEETA Administration Aspirin 81 mg 05/12/24 09:00 05/16/24 09:04 Aspirin 81 Mg Enteric Tablet PO 81 mg DAILY SANGEETA Administration Carvedilol 12.5 mg 05/16/24 09:00 05/24/24 08:27 Carvedilol 12.5 Mg Tablet PO 12.5 mg Q12HR SANGEETA Administration Clopidogrel Bisulfate 75 mg 05/12/24 09:00 05/16/24 09:04 Clopidogrel Bisulfate 75 Mg Tablet PO 75 mg DAILY SANGEETA Administration Dextrose 12.5 gm 05/11/24 22:22 Dextrose 50% 25 Gm/50 Ml Syringe IV PUSH PRN PRN Hypoglycemia Protocol Epoetin Shimon-epbx 10,000 units 05/17/24 09:00 05/24/24 09:14 Epoetin Shimon-Epbx 10,000 Units/Ml Vial SUB-Q 10,000 units TUTHSA@09 SANGEETA Administration Fluticasone/Umeclidinium/Vilanterol 1 puff 05/12/24 08:00 05/24/24 08:10 Fluticasone/Umeclidin/Vilanter 100-62.5-25 Mcg Ellipta INHALATION 1 puff DAILYRT SANGEETA Administration Glucagon 1 mg 05/11/24 22:22 Glucagon For Inj 1 Mg Vial IM PRN PRN Hypoglycemia Protocol Glucose 15 gm 05/11/24 22:22 Glucose Oral Gel 15 Gm Of Glucse In 37.5 Gm Tube PO PRN PRN Hypoglycemia Protocol Guaifenesin 1,200 mg 05/12/24 09:00 05/24/24 08:27 Guaifenesin 12 Hr 600 Mg Tabcr PO 1,200 mg Q12HR SANGEETA Administration Hydralazine HCl 10 mg 05/15/24 17:22 05/16/24 00:13 Hydralazine Hcl 20 Mg/Ml Vial IV PUSH 10 mg Q6H PRN Administration Blood Pressure - High Dextrose 1,000 mls @ 100 mls/hr 05/11/24 22:22 Dextrose 5% 1,000 Ml IVPB PRN PRN Hypoglycemia Protocol Meropenem 500 mg in 100 mls @ 200 mls/hr 05/20/24 12:00 05/24/24 11:09 IVPB Infused Q12HR SANGEETA Infusion Insulin Aspart 4 - 8 units 05/24/24 08:00 05/24/24 11:37 Insulin Aspart (*Bkc) 100 Units/Ml SUB-Q Not Given [facility] Protocol Levothyroxine Sodium 75 mcg 05/12/24 06:30 05/24/24 06:49 Levothyroxine Sodium 75 Mcg Tablet PO 75 mcg DAILY@0630 SANGEETA Administration Ondansetron HCl 4 mg 05/11/24 18:35 05/17/24 00:55 Ondansetron Inj 4 Mg/2 Ml Vial IV PUSH 4 mg Q4H PRN Administration Nausea Pantoprazole Sodium 40 mg 05/16/24 21:00 05/24/24 08:26 Pantoprazole Sodium Iv 40 Mg Vial IV PUSH 40 mg Q12HR SANGEETA Administration Rosuvastatin Calcium 40 mg 05/12/24 09:00 05/24/24 08:26 Rosuvastatin 20 Mg Tablet PO 40 mg DAILY SANGEETA Administration Sodium Bicarbonate 650 mg 05/23/24 09:00 05/24/24 08:27 Sodium Bicarbonate Tab 650 Mg Tablet PO 650 mg BID SANGEETA Administration Sucralfate 1,000 mg 05/17/24 16:30 05/24/24 11:37 Sucralfate Susp 100 Mg/Ml 10 Ml Udc PO 1,000 mg TIDAC SANGEETA Administration Radiology Results: ITS Impressions Chest/Abdomen/Pelvis CT 05/11/24 18:29 IMPRESSION: Extensive right upper lobe, middle lobe and left lower lobe consolidating pneumonia, with mild mediastinal reactive lymph node enlargement Occasional pulmonary nodules, likely related to pulmonary granulomatous disease 29 x 31 mm left adrenal low-attenuation mass, likely due to adrenal adenoma, less likely metastasis Normal appendix Minimal sigmoid diverticulosis; no evidence of diverticulitis Moderate prostatomegaly 2. Fusiform infrarenal abdominal aortic aneurysms, measuring up to 4 cm Central venous right common femoral catheter in right common femoral vein Renal Ultrasound 05/12/24 15:15 IMPRESSION: Unremarkable renal sonogram findings. Carotid Doppler Study 05/12/24 15:34 IMPRESSION: 1. <50% stenosis in the right internal carotid artery. 2. 50-69% stenosis in the left internal carotid artery. Modified Barium Swallow 05/20/24 14:24 IMPRESSION: 1. Normal modified barium swallow. 2. Please refer to the speech therapy report for recommendations. Head CT 05/21/24 21:34 IMPRESSION: No definite acute intracranial findings. 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 If still suspicious MRI is advised. Chest X-Ray 05/22/24 11:50 IMPRESSION: 1. Improved airspace opacities in right mid and upper lung zones and worsened airspace opacities in left mid and lower lung zones, consistent with pneumonia. 2. Small left pleural effusion. Chest CT 05/23/24 08:57 IMPRESSION: 1. Improved airspace opacities in right upper lobe and right middle lobe, consistent with pneumonia and atelectasis. 2. Left lower lobe airspace opacities with volume loss, consistent with atelectasis versus pneumonia. 3. Small pleural effusions. 4. Mild emphysema. 5. Pulmonary nodules measuring up to 6 mm, probably benign. Consider noncontrast low-dose chest CT in 6-12 months. 6. Partially visualized fusiform abdominal aortic aneurysm measuring 4.0 cm. Labs Labs: Laboratory Results - last 24 hr 05/23/24 05/23/24 05/24/24 17:08 19:43 05:30 WBC 16.3 H RBC 2.73 L Hgb 7.9 L Hct 24.3 L MCV 89.0 MCH 28.9 MCHC 32.5 RDW 15.4 H Plt Count 326 MPV 9.6 Immature Gran % (Auto) 1.4 H Neut % (Auto) 78.4 H Lymph % (Auto) 7.4 L [place] % (Auto) 9.9 H Eos % (Auto) 2.5 Baso % (Auto) 0.4 Lymph # (Auto) 1.20 [place] # (Auto) 1.6 H Eos # (Auto) 0.4 H Baso # (Auto) 0.1 Abs Immat Gran (auto) 0.23 H Absolute Neuts (auto) 12.8 H Absolute Nucleated RBC 0.000 Nucleated RBC % 0.0 Sodium 142 Potassium 3.4 Chloride 114 H Carbon Dioxide 22 Anion Gap 6 BUN 56 H D Creatinine 2.60 H Estim Creat Clear Calc 22 Estimated GFR 24 L Glucose 108 POC Capillary Glucose 137 H 151 H Calcium 7.4 L Phosphorus 3.7 Magnesium 1.5 L Albumin 2.9 L 05/24/24 05/24/24 08:18 11:33 WBC RBC Hgb Hct MCV MCH MCHC RDW Plt Count MPV Immature Gran % (Auto) Neut % (Auto) Lymph % (Auto) [place] % (Auto) Eos % (Auto) Baso % (Auto) Lymph # (Auto) [place] # (Auto) Eos # (Auto) Baso # (Auto) Abs Immat Gran (auto) Absolute Neuts (auto) Absolute Nucleated RBC Nucleated RBC % Sodium Potassium Chloride Carbon Dioxide Anion Gap BUN Creatinine Estim Creat Clear Calc Estimated GFR Glucose POC Capillary Glucose 115 H 148 H Calcium Phosphorus Magnesium Albumin
[2024-05-24 16:52] LABS: Glucose Point of Care 335 mg/dl (65-105)
[2024-05-24] MEDS: INSULIN ASPART (*BKC) 100 UNITS/ML SUB-Q (17:05)
[2024-05-24 20:54] LABS: Glucose Point of Care 113 mg/dl (65-105)
[2024-05-25] VITALS (10 sets, daily range): BP systolic 128–147; BP diastolic 47–52; PULSE 62–74; RESP 16–20; TEMP 36.2–36.7; O2SAT 90–98
[2024-05-25] MEDS: IPRATROPIUM 0.5 MG/ALBUTEROL SULFATE 2.5 MG AMPUL.NEB 3 ML INHALATION (04:11)
[2024-05-25 06:02] LABS: Basophils Absolute Auto 0.1 K/mm3 (0.0-0.1); Basophils Percent Auto 0.3 % (0.2-1.2); Eosinophils Absolute Auto 0.3 K/mm3 (0-0.3); Eosinophils Percent Auto 1.9 % (0-4.4); Hematocrit 24.3 % (42.0-52.0); Hemoglobin 7.9 g/dL (14.0-18.0); Immature Granulocyte Absolute 0.21 K/mm3 (0.00-0.031); Immature Granulocyte Percent A 1.4 % (0-0.5); Lymphocytes Absolute Auto 0.95 K/mm3 (0.9-3.2); Lymphocytes Percent Auto 6.3 % (18.3-44.2); Mean Corpuscular HGB Conc 32.5 g/dl (32-36); Mean Corpuscular Hemoglobin 28.8 pg (26-34); Mean Corpuscular Volume 88.7 fl (80-100); Mean Platelet Volume 9.5 fl (7.4-10.4); Monocytes Absolute Auto 1.3 K/mm3 (0.1-0.6); Monocytes Percent Auto 8.9 % (2.6-8.5); Neutrophils Absolute Auto 12.3 K/mm3 (1.3-6.7); Neutrophils Percent Auto 81.2 % (45.5-73.1); Platelet Count Result 298 k/mm3 (150-375); Red Blood Count 2.74 M/mm3 (4.6-6.20); Red Cell Distribution Width 15.4 % (11.5-14.5); White Blood Count 15.1 K/mm3 (4.5-10.0)
[2024-05-25 06:19] LABS: Anion Gap 6 mmol/L (4-12); Blood Urea Nitrogen 43 mg/dL (9-20); Calcium 7.3 mg/dL (8.4-10.2); Carbon Dioxide 21 mmol/L (22-30); Chloride 113 mmol/L (98-107); Estimated CRCL calculation 25 ml/min; Estimated Glomerular Filt Rate 28; Glucose 115 mg/dL (65-110); Magnesium 1.8 mg/dL (1.6-2.3); Phosphorus 3.6 mg/dL (2.5-4.5); Potassium 3.7 mmol/L (3.4-5.0); Sodium 140 mmol/L (137-145)
[2024-05-25] MEDS: SUCRALFATE SUSP 100 MG/ML 10 ML UDC 1000 MG PO (06:28)
[2024-05-25] MEDS: LEVOTHYROXINE SODIUM 75 MCG TABLET PO (06:28)
[2024-05-25] MEDS: amLODIPine BESYLATE 10 MG TABLET PO (08:08)
[2024-05-25] MEDS: ROSUVASTATIN 20 MG TABLET 40 MG PO (08:09)
[2024-05-25] MEDS: carvediloL 12.5 MG TABLET PO ×2 (08:09→20:34)
[2024-05-25] MEDS: SODIUM BICARBONATE TAB 650 MG TABLET PO ×2 (08:09→17:18)
[2024-05-25] MEDS: PANTOPRAZOLE SODIUM IV 40 MG VIAL IV PUSH ×2 (08:10→20:34)
[2024-05-25 08:13] LABS: Glucose Point of Care 128 mg/dl (65-105)
[2024-05-25] MEDS: MEROPENEM 500 MG/NS 100 ML 500 MG/100 ML BAG 200 MG IVPB ×2 (08:16→20:34)
[2024-05-25] MEDS: FLUTICASONE/UMECLIDIN/VILANTER 100-62.5-25 MCG ELLIPTA 1 PUFF INHALATION (09:05)
--- NOTE | 2024-05-25 11:00 | P.PNIM_ITS ---
Progress Note: A&P Assessment and Plan (1) Acute respiratory failure: Code(s): J96.00 - Acute respiratory failure, unspecified whether with hypoxia or hypercapnia Status: Acute Assessment and Plan: Patient presented with SOB and found to have PNA and hypoxic respiratory failure. Initially needed Airvo/non-rebreather mask then a trial of BiPAP started in ICU. Chest x-ray (05/18) showing airspace opacities in the right upper lobe and left lower lobe was worsening on the left. Treated with abx. Weaned to room air. Solu-Cortef stopped. Pulmonary consulted and appreciate their input Patient not wearing bipap consistently; okay to stop bipap (patient does not wear this at home) Bronchodilators prn. Remains on room air (2) Septic shock: Code(s): A41.9 - Sepsis, unspecified organism; R65.21 - Severe sepsis with septic shock Status: Acute Assessment and Plan: Septic shock secondary to pneumonia and UTI Patient received IV fluid bolus and started on pressors. Cautious IV fluids were given. Able to be weaned off pressors Hydrocortisone also started for pneumonia but now off. 05/11: Blood cultures growing Streptococcus pneumonia 07/20 bottles, pansensitive 05/12: Urine culture no growth 05/13: BCx negative. 05/14: Discontinued vancomycin and cefepime. Started ceftriaxone and doxycycline Urine Legionella Ag negative. Urine pneumococcal antigen positive. Finished a course of doxycycline. Lactic acid has normalized but WBC was climbing. MBS was okay. Previous provider discussed with ID pharmacist regarding antibiotics Repeat BCx 05/20: NGTD. Rocephin changed to meropenem 05/20. WBC down to 16K. CXR (05/22) showing improved airspace disease RML, RUL but worse in the LML and LLL. CT chest w/o contrast showing improved airspace disease RML, RUL but LLL airspace opacities with volume loss and small pleural effusion. No fevers. No diarrhea. Clinically he appears improved. Continue Meropenem for now to complete a 7 day course (3) Multifocal pneumonia: Code(s): J18.9 - Pneumonia, unspecified organism Status: Acute Assessment and Plan: See above Repeat imaging as above Pulmonary following Escalated antibiotics to meropenem on 05/20 As above. Follow for now. (4) Acute kidney injury: Code(s): N17.9 - Acute kidney failure, unspecified Status: Acute Assessment and Plan: Baseline Cr unclear since last Cr was 1.4 in 2019. Creatinine of 4.4 and climbed to 7. Bun up to 165 but had been on steroids. Nephrology following and appreciate their input. Renal US unremarkable Cr better at 2.3 and BUN at 45. Beginning to level off. Continue to follow (5) Elevated troponin: Code(s): R79.89 - Other specified abnormal findings of blood chemistry Status: Acute Assessment and Plan: Mildly elevated troponin in the setting of septic shock and LEIA likely demand ischemia. Patient denies any chest pain. Troponin trending down 05/12 Echo: LV dimension is mildly enlarged, LV systolic fxn moderately, globally reduced (EF 35-40%), mild concentric LVH, Grade I diastolic dy sfunction, LAE and trace valvular disease. Continue Coreg. No DENIS, Entresto, Spirono or Empaglifloxin with renal failure. Following (6) Anemia: Qualifiers: Anemia type: unspecified type Qualified Code(s): D64.9 - Anemia, unspecified Code(s): D64.9 - Anemia, unspecified Status: Acute Assessment and Plan: Hgb 12.2 on admission but dropped to 6.5 on 05/17. FOBT positive stool Holding ASA, plavix and Heparin SQ Received 1U PRBCs on 05/17. Hgb up to 7.9 PPI started GI consulted and appreciate their input. Hgb dropped to 7.0 so transfused 1U PRBC on 05/22. Hgb up to 8.9 but back down again. Monitor HH closely and transfuse as needed. Discussed with GI. Plan for endoscopy tomorrow NPO after midnight (7) Type 2 diabetes mellitus: Code(s): E11.9 - Type 2 diabetes mellitus without complications Status: Acute Assessment and Plan: The patient's blood glucose was reviewed on 05/25 Glucose remains well controlled. Continue AccuCheks covering with sliding scale. Hypoglycemia protocol available as needed. 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 Suspect his recent infections have made his chronic left sided weakness more prominent. Continue PT /OT. Plavix and ASA on hold. Continue Crestor DVT prophylaxis - SCDs Code Status: Full code Subjective Date/time seen: 05/25/24 11:00 Interval history: 74yo male with COPD, HTN, HLD, DM and PAD here for weakness and syncope. No problems overnight. No CP or SOB. Eating well. Exam Narrative: AF 98.1 137/52 74 20 92% RA Gen - NARD sitting up in the chair Chest - few basilr rhonchi o/w clear CV - RRR S1/S2 Abd - Soft, NT/ND, Positive BS Ext - No pedal edema Psych - Nml mood and affect Skin - Warm and dry Objective Data Vital Signs Vital Signs: Vital Signs - 24 hr 05/24/24 20:00 05/24/24 20:20 05/24/24 20:57 Temperature 97.2 F L Pulse Rate 65 65 Respiratory Rate 24 H Blood Pressure 137/61 Pulse Oximetry 93 95 Oxygen Delivery Room Air Fraction of Inspired Oxygen 05/24/24 20:00 05/25/24 04:11 05/25/24 04:21 Temperature Pulse Rate 74 69 Respiratory Rate 18 18 Blood Pressure Pulse Oximetry Oxygen Delivery Room Air Fraction of Inspired Oxygen 05/25/24 05:27 05/25/24 08:05 05/25/24 08:09 Temperature 97.9 F 98.1 F Pulse Rate 62 69 70 Respiratory Rate 20 16 Blood Pressure 147/50 H 137/52 L Pulse Oximetry 95 96 Oxygen Delivery Fraction of Inspired Oxygen 05/25/24 09:06 05/25/24 09:06 Temperature Pulse Rate 74 Respiratory Rate 20 Blood Pressure Pulse Oximetry 92 Oxygen Delivery Room Air Fraction of Inspired Oxygen 21 Intake/Output Intake/Output: Intake & Output 05/22/24 05/23/24 05/24/24 05/25/24 23:59 23:59 23:59 23:59 Intake Total 1630 1320 1010 740 Output Total 1850 3 350 Balance -220 1320 1007 390 Meds/Results Medications: Active Medications Generic Name Dose Route Start Last Admin Trade Name Semajq PRN Reason Stop Dose Admin Acetaminophen 650 mg 05/11/24 18:35 05/21/24 09:16 Acetaminophen 325 Mg Tablet PO 650 mg Q4H PRN Administration Mild Pain (1-3) or Fever Albuterol/Ipratropium 3 ml 05/23/24 18:27 05/25/24 04:11 Ipratropium 0.5 Mg/Albuterol Sulfate 2.5 Mg Ampul.Neb 3 Ml INHALATION 3 ml Q6HRT PRN Administration Shortness Of Breath Or Wheezing Amlodipine Besylate 10 mg 05/16/24 09:00 05/25/24 08:08 Amlodipine Besylate 10 Mg Tablet PO 10 mg DAILY SANGEETA Administration Aspirin 81 mg 05/12/24 09:00 05/16/24 09:04 Aspirin 81 Mg Enteric Tablet PO 81 mg DAILY SANGEETA Administration Carvedilol 12.5 mg 05/16/24 09:00 05/25/24 08:09 Carvedilol 12.5 Mg Tablet PO 12.5 mg Q12HR SANGEETA Administration Clopidogrel Bisulfate 75 mg 05/12/24 09:00 05/16/24 09:04 Clopidogrel Bisulfate 75 Mg Tablet PO 75 mg DAILY SANGEETA Administration Dextrose 12.5 gm 05/11/24 22:22 Dextrose 50% 25 Gm/50 Ml Syringe IV PUSH PRN PRN Hypoglycemia Protocol Epoetin Shimon-epbx 10,000 units 05/17/24 09:00 05/24/24 09:14 Epoetin Shimon-Epbx 10,000 Units/Ml Vial SUB-Q 10,000 units TUTA@09 SANGEETA Administration Fluticasone/Umeclidinium/Vilanterol 1 puff 05/12/24 08:00 05/25/24 09:05 Fluticasone/Umeclidin/Vilanter 100-62.5-25 Mcg Ellipta INHALATION 1 puff DAILYRT SANGEETA Administration Glucagon 1 mg 05/11/24 22:22 Glucagon For Inj 1 Mg Vial IM PRN PRN Hypoglycemia Protocol Glucose 15 gm 05/11/24 22:22 Glucose Oral Gel 15 Gm Of Glucse In 37.5 Gm Tube PO PRN PRN Hypoglycemia Protocol Guaifenesin 1,200 mg 05/25/24 07:15 Guaifenesin 12 Hr 600 Mg Tabcr PO Q12HR PRN Cough Hydralazine HCl 10 mg 05/15/24 17:22 05/16/24 00:13 Hydralazine Hcl 20 Mg/Ml Vial IV PUSH 10 mg Q6H PRN Administration Blood Pressure - High Dextrose 1,000 mls @ 100 mls/hr 05/11/24 22:22 Dextrose 5% 1,000 Ml IVPB PRN PRN Hypoglycemia Protocol Meropenem 500 mg in 100 mls @ 200 mls/hr 05/20/24 12:00 05/25/24 08:16 IVPB 05/26/24 21:29 200 mls/hr Q12HR SANGEETA Administration Insulin Aspart 4 - 8 units 05/24/24 08:00 05/25/24 08:21 Insulin Aspart (*Bkc) 100 Units/Ml SUB-Q Not Given TIDWM [facility] Protocol Levothyroxine Sodium 75 mcg 05/12/24 06:30 05/25/24 06:28 Levothyroxine Sodium 75 Mcg Tablet PO 75 mcg DAILY@0630 SANGEETA Administration Ondansetron HCl 4 mg 05/11/24 18:35 05/17/24 00:55 Ondansetron Inj 4 Mg/2 Ml Vial IV PUSH 4 mg Q4H PRN Administration Nausea Pantoprazole Sodium 40 mg 05/16/24 21:00 05/25/24 08:10 Pantoprazole Sodium Iv 40 Mg Vial IV PUSH 40 mg Q12HR SANGEETA Administration Rosuvastatin Calcium 40 mg 05/12/24 09:00 05/25/24 08:09 Rosuvastatin 20 Mg Tablet PO 40 mg DAILY SANGEETA Administration Sodium Bicarbonate 650 mg 05/23/24 09:00 05/25/24 08:09 Sodium Bicarbonate Tab 650 Mg Tablet PO 650 mg BID SANGEETA Administration Radiology Results: ITS Impressions Chest/Abdomen/Pelvis CT 05/11/24 18:29 IMPRESSION: Extensive right upper lobe, middle lobe and left lower lobe consolidating pneumonia, with mild mediastinal reactive lymph node enlargement Occasional pulmonary nodules, likely related to pulmonary granulomatous disease 29 x 31 mm left adrenal low-attenuation mass, likely due to adrenal adenoma, less likely metastasis Normal appendix Minimal sigmoid diverticulosis; no evidence of diverticulitis Moderate prostatomegaly 2. Fusiform infrarenal abdominal aortic aneurysms, measuring up to 4 cm Central venous right common femoral catheter in right common femoral vein Renal Ultrasound 05/12/24 15:15 IMPRESSION: Unremarkable renal sonogram findings. Carotid Doppler Study 05/12/24 15:34 IMPRESSION: 1. <50% stenosis in the right internal carotid artery. 2. 50-69% stenosis in the left internal carotid artery. Modified Barium Swallow 05/20/24 14:24 IMPRESSION: 1. Normal modified barium swallow. 2. Please refer to the speech therapy report for recommendations. Head CT 05/21/24 21:34 IMPRESSION: No definite acute intracranial findings. 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 If still suspicious MRI is advised. Chest X-Ray 05/22/24 11:50 IMPRESSION: 1. Improved airspace opacities in right mid and upper lung zones and worsened airspace opacities in left mid and lower lung zones, consistent with pneumonia. 2. Small left pleural effusion. Chest CT 05/23/24 08:57 IMPRESSION: 1. Improved airspace opacities in right upper lobe and right middle lobe, consistent with pneumonia and atelectasis. 2. Left lower lobe airspace opacities with volume loss, consistent with atelectasis versus pneumonia. 3. Small pleural effusions. 4. Mild emphysema. 5. Pulmonary nodules measuring up to 6 mm, probably benign. Consider noncontrast low-dose chest CT in 6-12 months. 6. Partially visualized fusiform abdominal aortic aneurysm measuring 4.0 cm. Labs Labs: Laboratory Results - last 24 hr 05/24/24 05/24/24 05/24/24 11:33 16:49 20:08 WBC RBC Hgb Hct MCV MCH MCHC RDW Plt Count MPV Immature Gran % (Auto) Neut % (Auto) Lymph % (Auto) Heard % (Auto) Eos % (Auto) Baso % (Auto) Lymph # (Auto) Heard # (Auto) Eos # (Auto) Baso # (Auto) Abs Immat Gran (auto) Absolute Neuts (auto) Absolute Nucleated RBC Nucleated RBC % Sodium Potassium Chloride Carbon Dioxide Anion Gap BUN Creatinine Estim Creat Clear Calc Estimated GFR Glucose POC Capillary Glucose 148 H 335 H 113 H Calcium Phosphorus Magnesium Albumin 05/25/24 05/25/24 05:26 08:02 WBC 15.1 H RBC 2.74 L Hgb 7.9 L Hct 24.3 L MCV 88.7 MCH 28.8 MCHC 32.5 RDW 15.4 H Plt Count 298 MPV 9.5 Immature Gran % (Auto) 1.4 H Neut % (Auto) 81.2 H Lymph % (Auto) 6.3 L Heard % (Auto) 8.9 H Eos % (Auto) 1.9 Baso % (Auto) 0.3 Lymph # (Auto) 0.95 Heard # (Auto) 1.3 H Eos # (Auto) 0.3 Baso # (Auto) 0.1 Abs Immat Gran (auto) 0.21 H Absolute Neuts (auto) 12.3 H Absolute Nucleated RBC 0.000 Nucleated RBC % 0.0 Sodium 140 Potassium 3.7 Chloride 113 H Carbon Dioxide 21 L Anion Gap 6 BUN 43 H D Creatinine 2.30 H Estim Creat Clear Calc 25 Estimated GFR 28 L Glucose 115 H POC Capillary Glucose 128 H Calcium 7.3 L Phosphorus 3.6 Magnesium 1.8 Albumin 3.0 L
[2024-05-25 11:59] LABS: Glucose Point of Care 182 mg/dl (65-105)
[2024-05-25] MEDS: ACETAMINOPHEN 325 MG TABLET 650 MG PO ×2 (13:03→21:52)
--- NOTE | 2024-05-25 15:24 | P.PNGI_ITS ---
Progress Note: A&P Assessment and Plan (1) Melena: Code(s): K92.1 - Melena Status: Acute Assessment and Plan: no more episodes hgb stable mid [address] Spicer to assess if gi source of anemia (2) Acute blood loss anemia: Code(s): D62 - Acute posthemorrhagic anemia Status: Acute Assessment and Plan: anemia probably is multifactorial but also will assess with egd tomorrow (3) Septic shock: Code(s): A41.9 - Sepsis, unspecified organism; R65.21 - Severe sepsis with septic shock Status: Acute Assessment and Plan: resolved (4) LEIA (acute kidney injury): Code(s): N17.9 - Acute kidney failure, unspecified Status: Acute Assessment and Plan: renal function slowly improving, client service representative on board (5) Multifocal pneumonia: Code(s): J18.9 - Pneumonia, unspecified organism Status: Acute Assessment and Plan: symptomatically much better (6) Chronic obstructive pulmonary disease: Qualifiers: COPD type: emphysema Emphysema type: unspecified Qualified Code(s): J43.9 - Emphysema, unspecified Code(s): J44.9 - Chronic obstructive pulmonary disease, unspecified Status: Chronic Subjective Date/time seen: 05/25/24 15:24 Interval history: no events, no report of gib, he is comfortable Review of Systems Review of Systems: All systems reviewed & are unremarkable except as noted in HPI and below Exam Narrative: Gen - NARD sitting up in the chair, comfortable and pleasant, no distress HEENT- normal pupils neck: supple Chest - decreased BS in the left base o/w distant CV - RRR S1/S2 Abd - Soft, NT/ND, Positive BS Ext - No pedal edema Neuro - Alert and appropriate Psych - Nml mood and affect Skin - Warm and dry Objective Data Vital Signs Vital Signs: Vital Signs - 24 hr 05/24/24 20:00 05/24/24 20:20 05/24/24 20:57 Temperature 97.2 F L Pulse Rate 65 65 Respiratory Rate 24 H Blood Pressure 137/61 Pulse Oximetry 93 95 Oxygen Delivery Room Air Fraction of Inspired Oxygen 05/24/24 20:00 05/25/24 04:11 05/25/24 04:21 Temperature Pulse Rate 74 69 Respiratory Rate 18 18 Blood Pressure Pulse Oximetry Oxygen Delivery Room Air Fraction of Inspired Oxygen 05/25/24 05:27 05/25/24 08:05 05/25/24 08:09 Temperature 97.9 F 98.1 F Pulse Rate 62 69 70 Respiratory Rate 20 16 Blood Pressure 147/50 H 137/52 L Pulse Oximetry 95 96 Oxygen Delivery Fraction of Inspired Oxygen 05/25/24 09:06 05/25/24 09:06 05/25/24 08:09 Temperature Pulse Rate 74 Respiratory Rate 20 Blood Pressure Pulse Oximetry 92 93 Oxygen Delivery Room Air Room Air Fraction of Inspired Oxygen 21 05/25/24 14:12 Temperature 97.5 F L Pulse Rate 71 Respiratory Rate 16 Blood Pressure 128/50 L Pulse Oximetry 98 Oxygen Delivery Fraction of Inspired Oxygen Intake/Output Intake/Output: Intake & Output 05/22/24 05/23/24 05/24/24 05/25/24 23:59 23:59 23:59 23:59 Intake Total 1630 1320 1010 980 Output Total 1850 3 350 Balance -220 1320 1007 630 Meds/Results Medications: Active Medications Generic Name Dose Route Start Last Admin Trade Name Freq PRN Reason Stop Dose Admin Acetaminophen 650 mg 05/11/24 18:35 05/25/24 13:03 Acetaminophen 325 Mg Tablet PO 650 mg Q4H PRN Administration Mild Pain (1-3) or Fever Albuterol/Ipratropium 3 ml 05/23/24 18:27 05/25/24 04:11 Ipratropium 0.5 Mg/Albuterol Sulfate 2.5 Mg Ampul.Neb 3 Ml INHALATION 3 ml Q6HRT PRN Administration Shortness Of Breath Or Wheezing Amlodipine Besylate 10 mg 05/16/24 09:00 05/25/24 08:08 Amlodipine Besylate 10 Mg Tablet PO 10 mg DAILY SANGEETA Administration Aspirin 81 mg 05/12/24 09:00 05/16/24 09:04 Aspirin 81 Mg Enteric Tablet PO 81 mg DAILY SANGEETA Administration Carvedilol 12.5 mg 05/16/24 09:00 05/25/24 08:09 Carvedilol 12.5 Mg Tablet PO 12.5 mg Q12HR SANGEETA Administration Clopidogrel Bisulfate 75 mg 05/12/24 09:00 05/16/24 09:04 Clopidogrel Bisulfate 75 Mg Tablet PO 75 mg DAILY SANGEETA Administration Dextrose 12.5 gm 05/11/24 22:22 Dextrose 50% 25 Gm/50 Ml Syringe IV PUSH PRN PRN Hypoglycemia Protocol Epoetin Shimon-epbx 10,000 units 05/17/24 09:00 05/24/24 09:14 Epoetin Shimon-Epbx 10,000 Units/Ml Vial SUB-Q 10,000 units TUTHSA@09 SANGEETA Administration Fluticasone/Umeclidinium/Vilanterol 1 puff 05/12/24 08:00 05/25/24 09:05 Fluticasone/Umeclidin/Vilanter 100-62.5-25 Mcg Ellipta INHALATION 1 puff DAILYRT SANGEETA Administration Glucagon 1 mg 05/11/24 22:22 Glucagon For Inj 1 Mg Vial IM PRN PRN Hypoglycemia Protocol Glucose 15 gm 05/11/24 22:22 Glucose Oral Gel 15 Gm Of Glucse In 37.5 Gm Tube PO PRN PRN Hypoglycemia Protocol Guaifenesin 1,200 mg 05/25/24 07:15 Guaifenesin 12 Hr 600 Mg Tabcr PO Q12HR PRN Cough Hydralazine HCl 10 mg 05/15/24 17:22 05/16/24 00:13 Hydralazine Hcl 20 Mg/Ml Vial IV PUSH 10 mg Q6H PRN Administration Blood Pressure - High Dextrose 1,000 mls @ 100 mls/hr 05/11/24 22:22 Dextrose 5% 1,000 Ml IVPB PRN PRN Hypoglycemia Protocol Meropenem 500 mg in 100 mls @ 200 mls/hr 05/20/24 12:00 05/25/24 08:16 IVPB 05/26/24 21:29 200 mls/hr Q12HR SANGEETA Administration Insulin Aspart 4 - 8 units 05/24/24 08:00 05/25/24 13:05 Insulin Aspart (*Bkc) 100 Units/Ml SUB-Q Not Given TIDWM [facility] Protocol Levothyroxine Sodium 75 mcg 05/12/24 06:30 05/25/24 06:28 Levothyroxine Sodium 75 Mcg Tablet PO 75 mcg DAILY@0630 SANGEETA Administration Ondansetron HCl 4 mg 05/11/24 18:35 05/17/24 00:55 Ondansetron Inj 4 Mg/2 Ml Vial IV PUSH 4 mg Q4H PRN Administration Nausea Pantoprazole Sodium 40 mg 05/16/24 21:00 05/25/24 08:10 Pantoprazole Sodium Iv 40 Mg Vial IV PUSH 40 mg Q12HR SANGEETA Administration Rosuvastatin Calcium 40 mg 05/12/24 09:00 05/25/24 08:09 Rosuvastatin 20 Mg Tablet PO 40 mg DAILY SANGEETA Administration Sodium Bicarbonate 650 mg 05/23/24 09:00 05/25/24 08:09 Sodium Bicarbonate Tab 650 Mg Tablet PO 650 mg BID SANGEETA Administration Radiology Results: ITS Impressions Chest/Abdomen/Pelvis CT 05/11/24 18:29 IMPRESSION: Extensive right upper lobe, middle lobe and left lower lobe consolidating pneumonia, with mild mediastinal reactive lymph node enlargement Occasional pulmonary nodules, likely related to pulmonary granulomatous disease 29 x 31 mm left adrenal low-attenuation mass, likely due to adrenal adenoma, less likely metastasis Normal appendix Minimal sigmoid diverticulosis; no evidence of diverticulitis Moderate prostatomegaly 2. Fusiform infrarenal abdominal aortic aneurysms, measuring up to 4 cm Central venous right common femoral catheter in right common femoral vein Renal Ultrasound 05/12/24 15:15 IMPRESSION: Unremarkable renal sonogram findings. Carotid Doppler Study 05/12/24 15:34 IMPRESSION: 1. <50% stenosis in the right internal carotid artery. 2. 50-69% stenosis in the left internal carotid artery. Modified Barium Swallow 05/20/24 14:24 IMPRESSION: 1. Normal modified barium swallow. 2. Please refer to the speech therapy report for recommendations. Head CT 05/21/24 21:34 IMPRESSION: No definite acute intracranial findings. 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 If still suspicious MRI is advised. Chest X-Ray 05/22/24 11:50 IMPRESSION: 1. Improved airspace opacities in right mid and upper lung zones and worsened airspace opacities in left mid and lower lung zones, consistent with pneumonia. 2. Small left pleural effusion. Chest CT 05/23/24 08:57 IMPRESSION: 1. Improved airspace opacities in right upper lobe and right middle lobe, consistent with pneumonia and atelectasis. 2. Left lower lobe airspace opacities with volume loss, consistent with atelectasis versus pneumonia. 3. Small pleural effusions. 4. Mild emphysema. 5. Pulmonary nodules measuring up to 6 mm, probably benign. Consider noncontrast low-dose chest CT in 6-12 months. 6. Partially visualized fusiform abdominal aortic aneurysm measuring 4.0 cm. Labs Labs: Laboratory Results - last 24 hr 05/24/24 05/24/24 05/25/24 16:49 20:08 05:26 WBC 15.1 H RBC 2.74 L Hgb 7.9 L Hct 24.3 L MCV 88.7 MCH 28.8 MCHC 32.5 RDW 15.4 H Plt Count 298 MPV 9.5 Immature Gran % (Auto) 1.4 H Neut % (Auto) 81.2 H Lymph % (Auto) 6.3 L [place] % (Auto) 8.9 H Eos % (Auto) 1.9 Baso % (Auto) 0.3 Lymph # (Auto) 0.95 [place] # (Auto) 1.3 H Eos # (Auto) 0.3 Baso # (Auto) 0.1 Abs Immat Gran (auto) 0.21 H Absolute Neuts (auto) 12.3 H Absolute Nucleated RBC 0.000 Nucleated RBC % 0.0 Sodium 140 Potassium 3.7 Chloride 113 H Carbon Dioxide 21 L Anion Gap 6 BUN 43 H D Creatinine 2.30 H Estim Creat Clear Calc 25 Estimated GFR 28 L Glucose 115 H POC Capillary Glucose 335 H 113 H Calcium 7.3 L Phosphorus 3.6 Magnesium 1.8 Albumin 3.0 L 05/25/24 05/25/24 08:02 11:55 WBC RBC Hgb Hct MCV MCH MCHC RDW Plt Count MPV Immature Gran % (Auto) Neut % (Auto) Lymph % (Auto) [place] % (Auto) Eos % (Auto) Baso % (Auto) Lymph # (Auto) [place] # (Auto) Eos # (Auto) Baso # (Auto) Abs Immat Gran (auto) Absolute Neuts (auto) Absolute Nucleated RBC Nucleated RBC % Sodium Potassium Chloride Carbon Dioxide Anion Gap BUN Creatinine Estim Creat Clear Calc Estimated GFR Glucose POC Capillary Glucose 128 H 182 H Calcium Phosphorus Magnesium Albumin
[2024-05-25 17:10] LABS: Glucose Point of Care 155 mg/dl (65-105)
[2024-05-25 20:38] LABS: Glucose Point of Care 118 mg/dl (65-105)
[2024-05-26] VITALS (10 sets, daily range): BP systolic 90–145; BP diastolic 40–71; PULSE 53–82; RESP 18–24; TEMP 36.1–36.3; O2SAT 91–98
[2024-05-26 05:18] LABS: Basophils Absolute Auto 0.1 K/mm3 (0.0-0.1); Basophils Percent Auto 0.7 % (0.2-1.2); Eosinophils Absolute Auto 0.2 K/mm3 (0-0.3); Eosinophils Percent Auto 1.5 % (0-4.4); Hematocrit 26.6 % (42.0-52.0); Hemoglobin 8.6 g/dL (14.0-18.0); Immature Granulocyte Absolute 0.13 K/mm3 (0.00-0.031); Lymphocytes Percent Auto 7.4 % (18.3-44.2); Mean Corpuscular HGB Conc 32.3 g/dl (32-36); Mean Corpuscular Hemoglobin 28.6 pg (26-34); Mean Corpuscular Volume 88.4 fl (80-100); Mean Platelet Volume 9.2 fl (7.4-10.4); Monocytes Absolute Auto 1.1 K/mm3 (0.1-0.6); Monocytes Percent Auto 8.2 % (2.6-8.5); Neutrophils Absolute Auto 10.9 K/mm3 (1.3-6.7); Neutrophils Percent Auto 81.2 % (45.5-73.1); Platelet Count Result 269 k/mm3 (150-375); Red Blood Count 3.01 M/mm3 (4.6-6.20); Red Cell Distribution Width 15.1 % (11.5-14.5); White Blood Count 13.5 K/mm3 (4.5-10.0)
[2024-05-26 05:38] LABS: Anion Gap 6 mmol/L (4-12); Blood Urea Nitrogen 38 mg/dL (9-20); Calcium 7.7 mg/dL (8.4-10.2); Carbon Dioxide 21 mmol/L (22-30); Chloride 113 mmol/L (98-107); Estimated CRCL calculation 28 ml/min; Estimated Glomerular Filt Rate 33; Glucose 105 mg/dL (65-110); Phosphorus 4.2 mg/dL (2.5-4.5); Potassium 3.8 mmol/L (3.4-5.0); Sodium 140 mmol/L (137-145)
[2024-05-26] MEDS: LEVOTHYROXINE SODIUM 75 MCG TABLET PO (06:17)
[2024-05-26] MEDS: FLUTICASONE/UMECLIDIN/VILANTER 100-62.5-25 MCG ELLIPTA 1 PUFF INHALATION (07:05)
[2024-05-26 07:56] LABS: Glucose Point of Care 99 mg/dl (65-105)
--- NOTE | 2024-05-26 10:07 | P.PNNP_ITS ---
Progress Note: A&P Assessment and Plan (1) Acute kidney injury: Code(s): N17.9 - Acute kidney failure, unspecified Status: Acute Assessment and Plan: * slow improvement noted * as noted on admission with a creatinine of 4.4mg/dl * unfortunately, only recent labs to compare to are from 2019 (see #2) * evaluation to date noted: * admission CT scan without obstruction * urine electrolytes prerenal * urine eosinophils negative * UA with blood and moderate proteinuria * CPK mildly elevated (probably not enough to affect kidney function) * suspect insult due several issues: * hemodynamic instability/shock * sepsis/infection (bacteremia) * prerenal factors * diuretic therapy [employer]ISHING [employer] * profound hypoxia * good/reasonable urine output noted * wean sodium bicarbonate as tolerated * continue to follow repeat labs and UOP (2) Stage 3a chronic kidney disease: Code(s): N18.31 - Chronic kidney disease, stage 3a Status: Chronic Assessment and Plan: * last creatinine noted at 1.4mg/dl (although this was from 2019) * presumably due to HTN, vascular disease (LE vascular disease, carotid stenosis, AAA, hyperlipidemia), diabetes, COPD/CJ and age-related change * cannot discount an element of CKD progression. (3) Septic shock: Code(s): A41.9 - Sepsis, unspecified organism; R65.21 - Severe sepsis with septic shock Status: Acute Assessment and Plan: * resolved * thought to be secondary to pneumonia and possibly UTI * s/p aggressive IVF resuscitation * weaned off vasopressor therapy * follow culture data - 05/11 blood cultures with Streptococcus pneumoniae * urine culture negative * repeat blood cultures are negative * completed course of antibiotics (4) Acute respiratory failure: Code(s): J96.00 - Acute respiratory failure, unspecified whether with hypoxia or hypercapnia Status: Acute Assessment and Plan: * clinical improvement noted * due to severe/significant pneumonia as noted by admission imaging * no respiratory distress but noted profound hypoxia on admission * complicated by known history of COPD * continue bronchodilators and s/p antibiotic therapy * Echo results noted * follow respiratory status (5) Systolic CHF: Code(s): I50.20 - Unspecified systolic (congestive) heart failure Status: Acute Assessment and Plan: * acute versus chronic? * Echo results noted: * left ventricular systolic function is moderately globally reduced - estimated at 35-40% * left ventricular diastolic function is grade I diastolic dysfunction * mild aortic valve sclerosis * trace mitral valve regurgitation * volume status appears stable * Cardiology following (6) Multifocal pneumonia: Code(s): J18.9 - Pneumonia, unspecified organism Status: Acute Assessment and Plan: * as noted by admission imaging * continue respiratory support * culture data noted * completed antibiotics (7) Anemia: Qualifiers: Anemia type: unspecified type Qualified Code(s): D64.9 - Anemia, unspecified Code(s): D64.9 - Anemia, unspecified Status: Acute Assessment and Plan: * due to LEIA, CKD, and acute illness * PRBC transfusion per protocol * on PPI * GI following * possible EGD today/this week? * plavix on hold * on Retacrit while inpatient * follow trend of H/H (8) Chronic obstructive pulmonary disease: Qualifiers: COPD type: emphysema Emphysema type: unspecified Qualified Code(s): J43.9 - Emphysema, unspecified Code(s): J44.9 - Chronic obstructive pulmonary disease, unspecified Status: Chronic Assessment and Plan: * known history * see #4 (9) Type 2 diabetes mellitus: Code(s): E11.9 - Type 2 diabetes mellitus without complications Status: Acute Assessment and Plan: * follow accu-cheks * glycemic control per hospitalists Will continue to follow intermittently. Subjective Date/time seen: 05/26/24 10:07 Interval history: Follow-up for acute kidney injury/acute renal failure on chronic kidney disease. Overall, appears to be making slow and steady improvement since I last saw him; renal function/creatinine continues to improve with adequate urine output; breathing/respiratory status is stable if not better as well (on room air); no acute distress voiced at time of my visit; no events overnight or earlier this morning. Exam Narrative: General: elderly but WD/WN male in NAD Heart: normal S1 and S2; no rub Lungs: coarse breath sounds Abdomen: soft, nontender, nondistended, positive bowel sounds Extremities: no cyanosis, clubbing or edema Skin: warm and dry Objective Data Vital Signs Vital Signs: Vital Signs Temp Pulse Resp BP Pulse Ox O2 Del Method FiO2 05/26/24 10:06 Room Air 05/26/24 07:05 82 18 05/26/24 07:05 82 18 91 Room Air 05/26/24 05:47 97.0 F L 61 20 145/40 H 95 05/25/24 23:37 97.2 F L 67 20 145/47 H 90 05/25/24 20:30 68 16 98 Room Air 21 05/25/24 20:34 68 05/25/24 14:12 97.5 F L 71 16 128/50 L 98 Intake/Output Intake/Output: Intake & Output 05/23/24 05/24/24 05/25/24 05/26/24 23:59 23:59 23:59 23:59 Intake Total 1320 1010 1180 300 Output Total 3 350 Balance 1320 1007 830 300 Meds/Results Medications: Active Medications Generic Name Dose Route Start Last Admin Trade Name Freq PRN Reason Stop Dose Admin Acetaminophen 650 mg 05/11/24 18:35 05/25/24 21:52 Acetaminophen 325 Mg Tablet PO 650 mg Q4H PRN Administration Mild Pain (1-3) or Fever Albuterol/Ipratropium 3 ml 05/23/24 18:27 05/25/24 04:11 Ipratropium 0.5 Mg/Albuterol Sulfate 2.5 Mg Ampul.Neb 3 Ml INHALATION 3 ml Q6HRT PRN Administration Shortness Of Breath Or Wheezing Amlodipine Besylate 10 mg 05/16/24 09:00 05/26/24 11:08 Amlodipine Besylate 10 Mg Tablet PO 10 mg DAILY SANGEETA Administration Aspirin 81 mg 05/12/24 09:00 05/16/24 09:04 Aspirin 81 Mg Enteric Tablet PO 81 mg DAILY SANGEETA Administration Carvedilol 12.5 mg 05/16/24 09:00 05/26/24 11:08 Carvedilol 12.5 Mg Tablet PO 12.5 mg Q12HR SANGEETA Administration Clopidogrel Bisulfate 75 mg 05/12/24 09:00 05/16/24 09:04 Clopidogrel Bisulfate 75 Mg Tablet PO 75 mg DAILY SANGEETA Administration Dextrose 12.5 gm 05/11/24 22:22 Dextrose 50% 25 Gm/50 Ml Syringe IV PUSH PRN PRN Hypoglycemia Protocol Epoetin Shimon-epbx 10,000 units 05/17/24 09:00 05/24/24 09:14 Epoetin Shimon-Epbx 10,000 Units/Ml Vial SUB-Q 10,000 units TUTA@09 SANGEETA Administration Fluticasone/Umeclidinium/Vilanterol 1 puff 05/12/24 08:00 05/26/24 07:05 Fluticasone/Umeclidin/Vilanter 100-62.5-25 Mcg Ellipta INHALATION 1 puff DAILYRT SANGEETA Administration Glucagon 1 mg 05/11/24 22:22 Glucagon For Inj 1 Mg Vial IM PRN PRN Hypoglycemia Protocol Glucose 15 gm 05/11/24 22:22 Glucose Oral Gel 15 Gm Of Glucse In 37.5 Gm Tube PO PRN PRN Hypoglycemia Protocol Guaifenesin 1,200 mg 05/25/24 07:15 Guaifenesin 12 Hr 600 Mg Tabcr PO Q12HR PRN Cough Hydralazine HCl 10 mg 05/15/24 17:22 05/16/24 00:13 Hydralazine Hcl 20 Mg/Ml Vial IV PUSH 10 mg Q6H PRN Administration Blood Pressure - High Dextrose 1,000 mls @ 100 mls/hr 05/11/24 22:22 Dextrose 5% 1,000 Ml IVPB PRN PRN Hypoglycemia Protocol Meropenem 500 mg in 100 mls @ 200 mls/hr 05/20/24 12:00 05/26/24 11:08 IVPB 05/26/24 21:29 200 mls/hr Q12HR SANGEETA Administration Insulin Aspart 4 - 8 units 05/24/24 08:00 05/26/24 10:06 Insulin Aspart (*Bkc) 100 Units/Ml SUB-Q Not Given TIDWM SANGEETA Protocol Levothyroxine Sodium 75 mcg 05/12/24 06:30 05/26/24 06:17 Levothyroxine Sodium 75 Mcg Tablet PO 75 mcg DAILY@0630 SANGEETA Administration Ondansetron HCl 4 mg 05/11/24 18:35 05/17/24 00:55 Ondansetron Inj 4 Mg/2 Ml Vial IV PUSH 4 mg Q4H PRN Administration Nausea Pantoprazole Sodium 40 mg 05/16/24 21:00 05/26/24 11:15 Pantoprazole Sodium Iv 40 Mg Vial IV PUSH 40 mg Q12HR SANGEETA Administration Rosuvastatin Calcium 40 mg 05/12/24 09:00 05/26/24 11:08 Rosuvastatin 20 Mg Tablet PO 40 mg DAILY SANGEETA Administration Sodium Bicarbonate 650 mg 05/23/24 09:00 05/26/24 11:08 Sodium Bicarbonate Tab 650 Mg Tablet PO 650 mg BID SANGEETA Administration Radiology Results: ITS Impressions Chest/Abdomen/Pelvis CT 05/11/24 18:29 IMPRESSION: Extensive right upper lobe, middle lobe and left lower lobe consolidating pneumonia, with mild mediastinal reactive lymph node enlargement Occasional pulmonary nodules, likely related to pulmonary granulomatous disease 29 x 31 mm left adrenal low-attenuation mass, likely due to adrenal adenoma, less likely metastasis Normal appendix Minimal sigmoid diverticulosis; no evidence of diverticulitis Moderate prostatomegaly 2. Fusiform infrarenal abdominal aortic aneurysms, measuring up to 4 cm Central venous right common femoral catheter in right common femoral vein Renal Ultrasound 05/12/24 15:15 IMPRESSION: Unremarkable renal sonogram findings. Carotid Doppler Study 05/12/24 15:34 IMPRESSION: 1. <50% stenosis in the right internal carotid artery. 2. 50-69% stenosis in the left internal carotid artery. Modified Barium Swallow 05/20/24 14:24 IMPRESSION: 1. Normal modified barium swallow. 2. Please refer to the speech therapy report for recommendations. Head CT 05/21/24 21:34 IMPRESSION: No definite acute intracranial findings. 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 If still suspicious MRI is advised. Chest X-Ray 05/22/24 11:50 IMPRESSION: 1. Improved airspace opacities in right mid and upper lung zones and worsened airspace opacities in left mid and lower lung zones, consistent with pneumonia. 2. Small left pleural effusion. Chest CT 05/23/24 08:57 IMPRESSION: 1. Improved airspace opacities in right upper lobe and right middle lobe, consistent with pneumonia and atelectasis. 2. Left lower lobe airspace opacities with volume loss, consistent with atelectasis versus pneumonia. 3. Small pleural effusions. 4. Mild emphysema. 5. Pulmonary nodules measuring up to 6 mm, probably benign. Consider noncontrast low-dose chest CT in 6-12 months. 6. Partially visualized fusiform abdominal aortic aneurysm measuring 4.0 cm. Labs Labs: Laboratory Tests 05/26/24 05:10 05/26/24 05:10 Calcium 7.7 L Phosphorus 4.2 Albumin 3.0 L Microbiology 05/20/24 08:52 Blood Blood Culture - Final 05/20/24 08:42 Blood Blood Culture - Final
[2024-05-26] MEDS: carvediloL 12.5 MG TABLET PO (11:08)
[2024-05-26] MEDS: amLODIPine BESYLATE 10 MG TABLET PO (11:08)
[2024-05-26] MEDS: MEROPENEM 500 MG/NS 100 ML 500 MG/100 ML BAG 200 MG IVPB (11:08)
[2024-05-26] MEDS: ROSUVASTATIN 20 MG TABLET 40 MG PO (11:08)
[2024-05-26] MEDS: SODIUM BICARBONATE TAB 650 MG TABLET PO ×2 (11:08→18:56)
[2024-05-26] MEDS: PANTOPRAZOLE SODIUM IV 40 MG VIAL IV PUSH (11:15)
[2024-05-26 11:32] LABS: Glucose Point of Care 96 mg/dl (65-105)
[2024-05-26] MEDS: LACTATED RINGERS 1,000 ML 150 ML IV CONT (13:02)
--- NOTE | 2024-05-26 13:31 | P.PNAN_ITS ---
Anes - Initial Pre Proc Eval Procedure: Operation Date: 05/26/24 14:00 Proposed Procedures p Esophagogastroduodenoscopy - Brandon Spicer MD Date/Time: 05/26/24 13:31 Surgeon: Petros Phillips MD Pre Op Diagnosis: Pneumonia, respiratory failure Patient Data Age: 74 Gender: M Height: 1.7 m Weight: 80.3 kg Last Vital Signs Temp 97 F L 05/26/24 12:58 Pulse 63 05/26/24 12:58 Resp 20 05/26/24 12:58 BP 139/59 L 05/26/24 12:58 Pulse Ox 97 05/26/24 12:58 O2 Del Method Room Air 05/26/24 12:58 O2 Flow Rate 2 05/21/24 07:13 FiO2 21 05/25/24 20:30 Allergies Allergy/AdvReac Type Severity Reaction Status Date / Time penicillin G Allergy Mild Unknown Verified 05/26/24 12:54 codeine Allergy Unknown Unknown Verified 05/26/24 12:54 Penicillins Allergy Unknown Unknown Verified 05/26/24 12:54 latex Allergy Unknown Verified 05/26/24 12:54 Home Medications Medication Instructions Recorded Confirmed Type albuterol sulfate 2.5 mg/3 mL 2.5 mg (3 mL) inhalation Q4-6H PRN 11/11/22 Rx (0.083 %) solution for nebulization shortness of breath or wheezing #75 mL albuterol sulfate 90 mcg/actuation 1 inh inhalation QID PRN 02/02/23 05/11/24 History aerosol inhaler (ProAir HFA) SOB/Wheezing aspirin 81 mg tablet,delayed 81 mg PO DAILY 02/02/23 05/11/24 History release (Adult Low Dose Aspirin) duloxetine 60 mg capsule,delayed 60 mg PO DAILY #90 caps 01/03/24 05/11/24 Rx release empagliflozin 12.5 mg-metformin 1 tablet PO BID #180 tabs 01/03/24 05/11/24 Rx 1,000 mg tablet (Synjardy) hydrochlorothiazide 25 mg tablet 25 mg PO DAILY #90 tabs 01/03/24 05/11/24 Rx levothyroxine 75 mcg tablet 75 mcg PO DAILY #90 tabs 01/03/24 05/11/24 Rx rosuvastatin 40 mg tablet 40 mg PO DAILY #90 tabs 01/03/24 05/11/24 Rx budesonide 160 mcg-glycopyr 9 2 inh inhalation BID #10.7 grams 05/05/24 05/11/24 Rx mcg-formot 4.8 mcg/actuation HFA inhaler (Breztri Aerosphere) sildenafil 100 mg tablet 100 mg PO DAILY PRN sexual 05/05/24 05/11/24 Rx activity #30 tabs amlodipine 10 mg tablet 10 mg PO DAILY 05/11/24 05/11/24 History carvedilol 12.5 mg tablet 12.5 mg PO DAILY 05/11/24 05/11/24 History clopidogrel 75 mg tablet 75 mg PO DAILY 05/11/24 05/11/24 History Laboratory Tests 05/25/24 05/25/24 05/26/24 17:05 20:23 05:10 WBC 13.5 H K/mm3 (4.5-10.0) RBC 3.01 L M/mm3 (4.6-6.20) Hgb 8.6 L g/dL (14.0-18.0) Hct 26.6 L % (42.0-52.0) MCV 88.4 fl (80-100) MCH 28.6 pg (26-34) MCHC 32.3 g/dl (32-36) RDW 15.1 H % (11.5-14.5) Plt Count 269 k/mm3 (150-375) MPV 9.2 fl (7.4-10.4) Immature Gran % (Auto) 1.0 H % (0-0.5) Neut % (Auto) 81.2 H % (45.5-73.1) Lymph % (Auto) 7.4 L % (18.3-44.2) [place] % (Auto) 8.2 % (2.6-8.5) Eos % (Auto) 1.5 % (0-4.4) Baso % (Auto) 0.7 % (0.2-1.2) Lymph # (Auto) 1.00 K/mm3 (0.9-3.2) [place] # (Auto) 1.1 H K/mm3 (0.1-0.6) Eos # (Auto) 0.2 K/mm3 (0-0.3) Baso # (Auto) 0.1 K/mm3 (0.0-0.1) Abs Immat Gran (auto) 0.13 H K/mm3 (0.00-0.031) Absolute Neuts (auto) 10.9 H K/mm3 (1.3-6.7) Absolute Nucleated RBC 0.000 K/mm3 (0.0-0.012) Nucleated RBC % 0.0 % (0.0-0.2) Sodium 140 mmol/L (137-145) Potassium 3.8 mmol/L (3.4-5.0) Chloride 113 H mmol/L (98-107) Carbon Dioxide 21 L mmol/L (22-30) Anion Gap 6 mmol/L (4-12) BUN 38 H mg/dL (9-20) Creatinine 2.00 H mg/dL (0.7-1.3) Estim Creat Clear Calc 28 ml/min Estimated GFR 33 L (59 - ) Glucose 105 mg/dL (65-110) POC Capillary Glucose 155 H mg/dl 118 H mg/dl (65-105) (65-105) Calcium 7.7 L mg/dL (8.4-10.2) Phosphorus 4.2 mg/dL (2.5-4.5) Albumin 3.0 L g/dL (3.5-5.1) 05/26/24 05/26/24 07:41 11:29 WBC RBC Hgb Hct MCV MCH MCHC RDW Plt Count MPV Immature Gran % (Auto) Neut % (Auto) Lymph % (Auto) [place] % (Auto) Eos % (Auto) Baso % (Auto) Lymph # (Auto) [place] # (Auto) Eos # (Auto) Baso # (Auto) Abs Immat Gran (auto) Absolute Neuts (auto) Absolute Nucleated RBC Nucleated RBC % Sodium Potassium Chloride Carbon Dioxide Anion Gap BUN Creatinine Estim Creat Clear Calc Estimated GFR Glucose POC Capillary Glucose 99 mg/dl 96 mg/dl (65-105) (65-105) Calcium Phosphorus Albumin Patient hx anesthesia problems: none Family hx anesthesia problems: none Results Review: All pre-operative results and documents have been reviewed as part of the pre- operative evaluation. [facility] Past Medical History Medical History Arthritis Carotid stenosis Chronic obstructive pulmonary disease Gout Hyperlipidemia Hypertension Hypothyroidism Obstructive sleep apnea Peripheral vascular disease Tobacco dependence Type 2 diabetes mellitus Surgical History Surgical History History of cardiac catheterization History of carotid endarterectomy History of cholecystectomy History of revascularization procedure of lower extremity Family History Family History Father Hypertension Cerebrovascular accident Grandparent Family history of malignant neoplasm Diabetes mellitus Sibling Family history of diabetes mellitus in first degree relative Diabetes mellitus Mother Hyperlipidemia Social History Social History Social History: Surrogate medical decision maker: Brooks Morrissey, son ([phone]) and Kira Morrissey, spouse ([phone]). Code status: Full code. Smoking packs per day: 1 Smoking cigarettes per day: 20.0 Years smoked: 30 Smoking pack-years: 30.00 Smoking status: Current every day smoker Tobacco type: cigarettes Second hand tobacco smoke exposure: Yes Alcohol intake: never Substance use: current Substance use type: marijuana Other substance usage details: smoking and edibles Do You Feel Safe in your Home?: Yes Lack of Transportation: No Lack of Food: Never True Current Housing: I Have Housing Concerned About Future Housing: No Difficulty Paying Gas/Electric Bills: No Difficulty Paying for Meds: No Currently Unemployed: No Education: High School Diploma/GED Difficulty w/ Childcare or Family Care: No Living arrangements: with family Occupation/Education: retired Spiritual care concerns: No Anes - Eval Final PreProcedure Day of Procedure 05/26/24 13:31 Patient weight: normal Heart: regular rate and rhythm Lungs: clear to auscultation Airway: Mallampati scale class II Neurological: alert and oriented Last oral intake: >/= 8 hours ASA classification: IV Emergent: no Anesthetic plan: proceed Anesthesia type and monitoring: general GIVS and standard monitoring Results Review: All pre-operative results and documents have been reviewed as part of the pre- operative evaluation. Informed Consent: The patient's anesthetic plan and its attendant risks and benefits were discussed with the patient/family/POA. Questions were solicited and answers provided to the satisfaction of the patient/family/POA.
--- NOTE | 2024-05-26 13:45 | P.PNGI_ITS ---
Progress Note: A&P Assessment and Plan (1) Acute blood loss anemia: Code(s): D62 - Acute posthemorrhagic anemia Status: Acute Assessment and Plan: The patient is deemed a good candidate for the procedure. Consent signed. Will proceed. Subjective Date/time seen: 05/26/24 13:45 Interval history: The patient is continues to be stable, he is currently here for EGD to rule out upper GI sources of his recent drop in hematocrit. Differential diagnosis includes peptic ulcer disease or erosive gastritis, less likely, gastric neoplasm. Review of Systems Review of Systems: All systems reviewed & are unremarkable except as noted in HPI and below Exam Narrative: General: elderly but WD/WN male in NAD Heart: normal S1 and S2; no rub Lungs: coarse breath sounds Abdomen: soft, nontender, nondistended, positive bowel sounds Extremities: no cyanosis, clubbing or edema Skin: warm and dry Objective Data Vital Signs Vital Signs: Vital Signs - 24 hr 05/25/24 14:12 05/25/24 20:34 05/25/24 20:30 Temperature 97.5 F L Pulse Rate 71 68 68 Respiratory Rate 16 16 Blood Pressure 128/50 L Pulse Oximetry 98 98 Oxygen Delivery Room Air Fraction of Inspired Oxygen 21 05/25/24 23:37 05/26/24 05:47 05/26/24 07:05 Temperature 97.2 F L 97.0 F L Pulse Rate 67 61 82 Respiratory Rate 20 20 18 Blood Pressure 145/47 H 145/40 H Pulse Oximetry 90 95 91 Oxygen Delivery Room Air Fraction of Inspired Oxygen 05/26/24 07:05 05/26/24 10:06 05/26/24 11:04 Temperature 97.4 F L Pulse Rate 82 69 Respiratory Rate 18 18 Blood Pressure 145/48 H Pulse Oximetry 98 Oxygen Delivery Room Air Fraction of Inspired Oxygen 05/26/24 11:08 05/26/24 12:58 Temperature 97 F L Pulse Rate 69 63 Respiratory Rate 20 Blood Pressure 139/59 L Pulse Oximetry 97 Oxygen Delivery Room Air Fraction of Inspired Oxygen Intake/Output Intake/Output: Intake & Output 05/23/24 05/24/24 05/25/24 05/26/24 23:59 23:59 23:59 23:59 Intake Total 1320 1010 1180 300 Output Total 3 350 Balance 1320 1007 830 300 Meds/Results Medications: Active Medications Generic Name Dose Route Start Last Admin Trade Name Freq PRN Reason Stop Dose Admin Acetaminophen 650 mg 05/11/24 18:35 05/25/24 21:52 Acetaminophen 325 Mg Tablet PO 650 mg Q4H PRN Administration Mild Pain (1-3) or Fever Albuterol/Ipratropium 3 ml 05/23/24 18:27 05/25/24 04:11 Ipratropium 0.5 Mg/Albuterol Sulfate 2.5 Mg Ampul.Neb 3 Ml INHALATION 3 ml Q6HRT PRN Administration Shortness Of Breath Or Wheezing Amlodipine Besylate 10 mg 05/16/24 09:00 05/26/24 11:08 Amlodipine Besylate 10 Mg Tablet PO 10 mg DAILY SANGEETA Administration Aspirin 81 mg 05/12/24 09:00 05/16/24 09:04 Aspirin 81 Mg Enteric Tablet PO 81 mg DAILY SANGEETA Administration Carvedilol 12.5 mg 05/16/24 09:00 05/26/24 11:08 Carvedilol 12.5 Mg Tablet PO 12.5 mg Q12HR SANGEETA Administration Clopidogrel Bisulfate 75 mg 05/12/24 09:00 05/16/24 09:04 Clopidogrel Bisulfate 75 Mg Tablet PO 75 mg DAILY SANGEETA Administration Dextrose 12.5 gm 05/11/24 22:22 Dextrose 50% 25 Gm/50 Ml Syringe IV PUSH PRN PRN Hypoglycemia Protocol Epoetin Shimon-epbx 10,000 units 05/17/24 09:00 05/24/24 09:14 Epoetin Shimon-Epbx 10,000 Units/Ml Vial SUB-Q 10,000 units TUTHSA@09 SANGEETA Administration Fluticasone/Umeclidinium/Vilanterol 1 puff 05/12/24 08:00 05/26/24 07:05 Fluticasone/Umeclidin/Vilanter 100-62.5-25 Mcg Ellipta INHALATION 1 puff DAILYRT SANGEETA Administration Glucagon 1 mg 05/11/24 22:22 Glucagon For Inj 1 Mg Vial IM PRN PRN Hypoglycemia Protocol Glucose 15 gm 05/11/24 22:22 Glucose Oral Gel 15 Gm Of Glucse In 37.5 Gm Tube PO PRN PRN Hypoglycemia Protocol Guaifenesin 1,200 mg 05/25/24 07:15 Guaifenesin 12 Hr 600 Mg Tabcr PO Q12HR PRN Cough Hydralazine HCl 10 mg 05/15/24 17:22 05/16/24 00:13 Hydralazine Hcl 20 Mg/Ml Vial IV PUSH 10 mg Q6H PRN Administration Blood Pressure - High Dextrose 1,000 mls @ 100 mls/hr 05/11/24 22:22 Dextrose 5% 1,000 Ml IVPB PRN PRN Hypoglycemia Protocol Meropenem 500 mg in 100 mls @ 200 mls/hr 05/20/24 12:00 05/26/24 11:08 IVPB 05/26/24 21:29 200 mls/hr Q12HR SANGEETA Administration Lactated Ringer's 1,000 mls @ 150 mls/hr 05/26/24 12:55 05/26/24 13:02 Lr - Lactated Ringers Iv IV CONT 150 mls/hr .Q6H40M SANGEETA Administration Insulin Aspart 4 - 8 units 05/24/24 08:00 05/26/24 12:36 Insulin Aspart (*Bkc) 100 Units/Ml SUB-Q Not Given TIDWM SANGEETA Protocol Levothyroxine Sodium 75 mcg 05/12/24 06:30 05/26/24 06:17 Levothyroxine Sodium 75 Mcg Tablet PO 75 mcg DAILY@0630 SANGEETA Administration Ondansetron HCl 4 mg 05/11/24 18:35 05/17/24 00:55 Ondansetron Inj 4 Mg/2 Ml Vial IV PUSH 4 mg Q4H PRN Administration Nausea Pantoprazole Sodium 40 mg 05/16/24 21:00 05/26/24 11:15 Pantoprazole Sodium Iv 40 Mg Vial IV PUSH 40 mg Q12HR SANGEETA Administration Rosuvastatin Calcium 40 mg 05/12/24 09:00 05/26/24 11:08 Rosuvastatin 20 Mg Tablet PO 40 mg DAILY SANGEETA Administration Sodium Bicarbonate 650 mg 05/23/24 09:00 05/26/24 11:08 Sodium Bicarbonate Tab 650 Mg Tablet PO 650 mg BID SANGEETA Administration Radiology Results: ITS Impressions Chest/Abdomen/Pelvis CT 05/11/24 18:29 IMPRESSION: Extensive right upper lobe, middle lobe and left lower lobe consolidating pneumonia, with mild mediastinal reactive lymph node enlargement Occasional pulmonary nodules, likely related to pulmonary granulomatous disease 29 x 31 mm left adrenal low-attenuation mass, likely due to adrenal adenoma, less likely metastasis Normal appendix Minimal sigmoid diverticulosis; no evidence of diverticulitis Moderate prostatomegaly 2. Fusiform infrarenal abdominal aortic aneurysms, measuring up to 4 cm Central venous right common femoral catheter in right common femoral vein Renal Ultrasound 05/12/24 15:15 IMPRESSION: Unremarkable renal sonogram findings. Carotid Doppler Study 05/12/24 15:34 IMPRESSION: 1. <50% stenosis in the right internal carotid artery. 2. 50-69% stenosis in the left internal carotid artery. Modified Barium Swallow 05/20/24 14:24 IMPRESSION: 1. Normal modified barium swallow. 2. Please refer to the speech therapy report for recommendations. Head CT 05/21/24 21:34 IMPRESSION: No definite acute intracranial findings. 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 If still suspicious MRI is advised. Chest X-Ray 05/22/24 11:50 IMPRESSION: 1. Improved airspace opacities in right mid and upper lung zones and worsened airspace opacities in left mid and lower lung zones, consistent with pneumonia. 2. Small left pleural effusion. Chest CT 05/23/24 08:57 IMPRESSION: 1. Improved airspace opacities in right upper lobe and right middle lobe, consistent with pneumonia and atelectasis. 2. Left lower lobe airspace opacities with volume loss, consistent with atelectasis versus pneumonia. 3. Small pleural effusions. 4. Mild emphysema. 5. Pulmonary nodules measuring up to 6 mm, probably benign. Consider noncontrast low-dose chest CT in 6-12 months. 6. Partially visualized fusiform abdominal aortic aneurysm measuring 4.0 cm. Labs Labs: Laboratory Results - last 24 hr 05/25/24 05/25/24 05/26/24 17:05 20:23 05:10 WBC 13.5 H RBC 3.01 L Hgb 8.6 L Hct 26.6 L MCV 88.4 MCH 28.6 MCHC 32.3 RDW 15.1 H Plt Count 269 MPV 9.2 Immature Gran % (Auto) 1.0 H Neut % (Auto) 81.2 H Lymph % (Auto) 7.4 L [place] % (Auto) 8.2 Eos % (Auto) 1.5 Baso % (Auto) 0.7 Lymph # (Auto) 1.00 [place] # (Auto) 1.1 H Eos # (Auto) 0.2 Baso # (Auto) 0.1 Abs Immat Gran (auto) 0.13 H Absolute Neuts (auto) 10.9 H Absolute Nucleated RBC 0.000 Nucleated RBC % 0.0 Sodium 140 Potassium 3.8 Chloride 113 H Carbon Dioxide 21 L Anion Gap 6 BUN 38 H Creatinine 2.00 H Estim Creat Clear Calc 28 Estimated GFR 33 L Glucose 105 POC Capillary Glucose 155 H 118 H Calcium 7.7 L Phosphorus 4.2 Albumin 3.0 L 05/26/24 05/26/24 07:41 11:29 WBC RBC Hgb Hct MCV MCH MCHC RDW Plt Count MPV Immature Gran % (Auto) Neut % (Auto) Lymph % (Auto) [place] % (Auto) Eos % (Auto) Baso % (Auto) Lymph # (Auto) [place] # (Auto) Eos # (Auto) Baso # (Auto) Abs Immat Gran (auto) Absolute Neuts (auto) Absolute Nucleated RBC Nucleated RBC % Sodium Potassium Chloride Carbon Dioxide Anion Gap BUN Creatinine Estim Creat Clear Calc Estimated GFR Glucose POC Capillary Glucose 99 96 Calcium Phosphorus Albumin
[2024-05-26 14:24] LABS: Glucose Point of Care 87 mg/dl (65-105)
--- NOTE | 2024-05-26 15:24 | PCPTNOTE ---
Attempted to see pt however just returned from a EGD procedure. Per RN decreased BP. Possible discharge tonight.
[2024-05-26 16:33] LABS: Glucose Point of Care 122 mg/dl (65-105)
--- NOTE | 2024-05-26 18:23 | P.DS_ITS ---
DS: Admitting Diagnosis Discharge Date 05/26/24 Admitting Diagnosis Weakness and syncope DS: Discharge Diagnosis Discharge Diagnosis (1) Acute respiratory failure: Code(s): J96.00 - Acute respiratory failure, unspecified whether with hypoxia or hypercapnia Status: Acute (2) Septic shock: Code(s): A41.9 - Sepsis, unspecified organism; R65.21 - Severe sepsis with septic shock Status: Acute (3) Multifocal pneumonia: Code(s): J18.9 - Pneumonia, unspecified organism Status: Acute (4) Acute kidney injury: Code(s): N17.9 - Acute kidney failure, unspecified Status: Acute (5) Elevated troponin: Code(s): R79.89 - Other specified abnormal findings of blood chemistry Status: Acute (6) Anemia: Qualifiers: Anemia type: unspecified type Qualified Code(s): D64.9 - Anemia, unspecified Code(s): D64.9 - Anemia, unspecified Status: Acute (7) Type 2 diabetes mellitus: Code(s): E11.9 - Type 2 diabetes mellitus without complications Status: Acute (8) Chronic obstructive pulmonary disease: Qualifiers: COPD type: emphysema Emphysema type: unspecified Qualified Code(s): J43.9 - Emphysema, unspecified Code(s): J44.9 - Chronic obstructive pulmonary disease, unspecified Status: Chronic (9) Hypothyroidism: Code(s): E03.9 - Hypothyroidism, unspecified Status: Acute DS: Summary Hospital Course Reason for hospitalization: 74yo male with COPD, HTN, HLD, DM and PAD here for weakness and syncope. Please see H&P for details. Hospital Course: The following issues were addressed: (1) Acute respiratory failure: Patient presented with SOB and found to have PNA and hypoxic respiratory failure. Initially needed Airvo/non-rebreather mask then a trial of BiPAP started in ICU. Chest x-ray (05/18) showing airspace opacities in the right upper lobe and left lower lobe was worsening on the left. Treated with abx. He improved and was weaned to room air. Solu-Cortef for sepsis but weaned off. Pulmonary consulted and appreciate their input. Patient was not wearing bipap consistently so this was stopped (patient does not wear this at home). He remained stable on room air (2) Septic shock: Patient found to have septic shock secondary to pneumonia. Patient received IV fluid bolus and started on pressors. Cautious IV fluids were given. Once stable, we were able to be wean off pressors. Hydrocortisone also started sepsis. Blood cultures (05/11) grew Streptococcus pneumonia 2/2 bottles that was pansensitive. Urine culture was negative. Repeat BCx were negative. Broad spectrum abx were narowed to ceftriaxone and doxycycline. Urine Legionella Ag negative. Urine pneumococcal antigen positive. He finished a course of doxycycline. Lactic acid has normalized but WBC was climbing. MBS was okay. Previous provider discussed with ID pharmacist regarding antibiotics. Patient had repeat BCx drawn that remained negative. Rocephin was changed to meropenem. CXR (05/22) showing impr honorio airspace disease RML, RUL but worse in the LML and LLL. CT chest w/o contrast showing improved airspace disease RML, RUL but LLL airspace opacities with volume loss and small pleural effusion. No pleuritic chest pain or fevers. Doubt trapped lung. Clinically he appeared improved. Pulmonary was following. His WBC dropped to 13K. He completed a 7 day course of Meropenem. (3) Multifocal pneumonia: Pulmonary following. Escalated antibiotics to meropenem on 05/20 and completed a 7 days course. As above. (4) Acute kidney injury: Baseline Cr unclear since last Cr was 1.4 in 2019. Creatinine was elevated on admission and climbed to 7. BUN was up to 165 but he had been on steroids. Nephrology following and appreciate their input. Renal US unremarkable. Cr better at 2 and BUN at 38 at time of discharge. He may have underlying CKD from HTN, vascular disease (LE vascular disease, carotid stenosis, AAA, hyperlipidemia), diabetes, COPD/CJ and age-related changes. (5) Elevated troponin: Mildly elevated troponin in the setting of septic shock and LEIA likely demand ischemia. Patient denied any chest pain. Troponin trending down. Cardiology following and appreciate their input. Echo showing LV dimension is mildly enlarged, LV systolic fxn moderately, globally reduced (EF 35-40%), mild concentric LVH, Grade I diastolic dysfunction, LAE and trace valvular disease. We continued Coreg. No DENIS, Entresto, Spironolactone or Empaglifloxin with acute renal failure. This will need to be addressed after discharge. Follow with Cardiology. (6) Anemia: Hgb 12.2 on admission but dropped to 6.5 on 05/17. FOBT positive stool. We held ASA, plavix and Heparin SQ. He received 1U PRBCs on 05/17. PPI started. GI consulted and appreciate their input. Hgb dropped to 7.0 so transfused 1U PRBC on 05/22. Hgb up to 7-8 range since. EGD showing gastritis. (7) Type 2 diabetes mellitus: The patient's blood glucose was monitored with AccuCheks covering with sliding scale. Hypoglycemia protocol was available as needed. A1c 6.0% (8) Chronic obstructive pulmonary disease: As above (9) Hypothyroidism: Elevated TSH to 6.6. We continued levothyroxine (10) Left sided weakness: Noted when working with therapy. 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 Suspect his recent infections have made his chronic left sided weakness more prominent. He did well with PT/OT. Plavix and ASA were on hold. We continued Crestor. He has been standby assistance with chair transfer and walked 40 feet with walker He overall did well and was able to be discharged home on 05/26/24. Status at Discharge Cognitive/behavioral status at discharge: stable Time Spent with Patient Time attestation: Total time spent providing and/or coordinating discharge services: 39 minutes Time spent: Greater than 30 minutes Exam Narrative: AF 97.3 142/54 67 18 92% RA Gen - NARD sitting up in the chair Chest - few basilar crackles o/w clear CV - RRR S1/S2 Abd - Soft, NT/ND, Positive BS Ext - trace pedal edema Psych - Nml mood and affect Skin - Warm and dry DS: Data Data Completed and Pending Pending studies at discharge: Pending at discharge 05/26/24 14:00 Surgical [PTH] Routine Labs on day of discharge: Labs from last 24 hours 05/26/24 05/26/24 05/26/24 16:27 14:20 11:29 WBC RBC Hgb Hct MCV MCH MCHC RDW Plt Count MPV Immature Gran % (Auto) Neut % (Auto) Lymph % (Auto) [place] % (Auto) Eos % (Auto) Baso % (Auto) Lymph # (Auto) [place] # (Auto) Eos # (Auto) Baso # (Auto) Abs Immat Gran (auto) Absolute Neuts (auto) Absolute Nucleated RBC Nucleated RBC % Sodium Potassium Chloride Carbon Dioxide Anion Gap BUN Creatinine Estim Creat Clear Calc Estimated GFR Glucose POC Capillary Glucose 122 H 87 96 Calcium Phosphorus Albumin 05/26/24 05/26/24 05/25/24 07:41 05:10 20:23 WBC 13.5 H RBC 3.01 L Hgb 8.6 L Hct 26.6 L MCV 88.4 MCH 28.6 MCHC 32.3 RDW 15.1 H Plt Count 269 MPV 9.2 Immature Gran % (Auto) 1.0 H Neut % (Auto) 81.2 H Lymph % (Auto) 7.4 L [place] % (Auto) 8.2 Eos % (Auto) 1.5 Baso % (Auto) 0.7 Lymph # (Auto) 1.00 [place] # (Auto) 1.1 H Eos # (Auto) 0.2 Baso # (Auto) 0.1 Abs Immat Gran (auto) 0.13 H Absolute Neuts (auto) 10.9 H Absolute Nucleated RBC 0.000 Nucleated RBC % 0.0 Sodium 140 Potassium 3.8 Chloride 113 H Carbon Dioxide 21 L Anion Gap 6 BUN 38 H Creatinine 2.00 H Estim Creat Clear Calc 28 Estimated GFR 33 L Glucose 105 POC Capillary Glucose 99 118 H Calcium 7.7 L Phosphorus 4.2 Albumin 3.0 L Discharge Plan Discharge Attending physician on discharge: Martín Phillips Consulting providers: Joshua Koroma; Hunter Shah; Daniel Gama; Chang Adhikari ; Mildred Kelly Discharging Clinician: Martín Phillips Anticipated Discharge Date/Time: 05/26/24 18:50 Patient Disposition: Home, Self-Care Activity: as tolerated Diet: heart healthy and diabetic Discharge Instructions: Care Coordination: Patient to have [facility] for PT/OT eval and treat, and retirement. Their phone number is [phone], if you have any questions. They will contact you to schedule their first visit. No driving today. Continue to use the incentive spirometry at home Please check glucose before meals and before bed. Record and bring into your doctor for review. Check blood pressure 1 to 2 times a day. Record and bring into your doctor for review. Call your doctor if your blood pressure is greater than 180/110. Take precautions to avoid falls. Rise slowly from a lying or sitting position. Pause before standing or walking. Walk with walker Check daily morning weights after voiding. Call your doctor if you gain more than 3 lb in 2 days or 5 lb in 1 week. Contact your doctor or call 911 and come to the Emergency Room if you have fevers, chest pain, worsening shortness of breath or other worrisome symptoms. Avoid NSAIDs (ibuprofen, naproxen, Aleve). Tylenol is safe to take. Follow-up with your primary care provider in 1-2 weeks. Please call for appointment. Follow-up with System Configuration Specialist in 2-4 weeks. Please call for an appointment. Follow-up with Specialized Developer in 2-4 weeks. Please call for an appointment. Thank you for using [facility] for your health care needs. Patient Instructions: Antibiotic Form, Clopidogrel (By mouth), How to Stop Smoking (DC), Pain Management (DC), Sepsis (GEN), Hypotension (GEN) Stand Alone Forms: General Discharge Information Follow-up/Referrals: Hunter Shah DO [Physician] - Call for Appointment Daniel Gama MD [Physician] - Call for Appointment Dannie Burroughs MD [Primary Care Provider] - Call for Appointment Discharge Medications: Continued aspirin [Adult Low Dose Aspirin] 81 mg Tablet,Delayed Release (Dr/Ec) 81 mg PO DAILY albuterol sulfate [ProAir HFA] 90 mcg/actuation Hfa Aerosol Inhaler 1 inh INHALATION QID PRN (Reason: SOB/Wheezing) rosuvastatin 40 mg tablet 40 mg PO DAILY Qty: 90 1RF levothyroxine 75 mcg tablet 75 mcg PO DAILY Qty: 90 1RF Breztri Aerosphere 160-9-4.8 mcg/actuation HFA aerosol inhaler 2 inh inhalation BID Qty: 10.7 2RF carvedilol 12.5 mg tablet 12.5 mg PO DAILY clopidogrel 75 mg tablet 75 mg PO DAILY amlodipine 10 mg tablet 10 mg PO DAILY albuterol sulfate 2.5 mg /3 mL (0.083 %) solution for nebulization 2.5 mg inhalation Q4-6H PRN (Reason: shortness of breath or wheezing) Qty: 75 2RF Held hydrochlorothiazide 25 mg tablet 25 mg PO DAILY Qty: 90 1RF Hold Instructions: HOLD - resume when okay with yuor doctor Synjardy 12.5-1,000 mg tablet 1 tablet PO BID Qty: 180 1RF Hold Instructions: Hold - Resume when okay with your doctor. duloxetine 60 mg capsule,delayed release(DR/EC) 60 mg PO DAILY Qty: 90 1RF Hold Instructions: Hold - Resume when okay with your doctor. Discontinued sildenafil 100 mg tablet 100 mg PO DAILY PRN (Reason: sexual activity) Qty: 30 0RF Rx Instructions: administer 30 minutes to 4 hours before activity Other Ambulatory Orders: Complete Blood Count with Diff (Routine) Timeframe: 1 Week Location: Determined by Patient Ordered By: Martín Phillips XR chest 2V (Routine) Timeframe: 1 Month Location: Determined by Patient Ordered By: Martín Phillips Renal Function Panel (Routine) Timeframe: 1 Week Location: Determined by Patient Ordered By: Martín Phillips Date of admission: 05/11/24 18:36 Primary Care Provider: Dannie Burroughs Admitting Provider: Martín Phillips Attending physician on admission: Martín Phillips Condition: Stable Hospitalist MIPS Heart Failure (Exclusion) Patient has history of Heart Transplant or Left Ventricular Assistive Device?: No IF YES, STOP HERE Heart Failure (Qualifier) Patient has current or prior documentation of LVEF less than or equal to 40%, or mod/servere depressed LVSF?: Yes IF NO, STOP HERE If Yes, Heart Failure (Qualifier) Patient was prescribed or already taking an Angiotensin-Converting Enzyme (DENIS) Inhibitor, or Antiotensin Receptor Regine (ARB): No Patient was prescribed or already taking bisoprolol, carvedilol, or sustained release metoprolol succinate: Yes If Medications not prescribed/taking Reason patient not prescribed/taking DENIS or ARB: Medical reasons: allergy, intolerance, contraindication or other
[2024-05-26] MEDS: MEROPENEM 1 GM/NS 100 ML 1 GM/100 ML BAG IVPB (18:53)
== END 2024-05-26 19:28 | disposition home health service (06) | DRG 871 ==
LOC: ANHED 18:20 → ANHICU 18:53 → ANHIMU 05-15 17:16 → ANH2MED 05-22 15:37
PROVIDERS: Internal Medicine; Internal Medicine Gastroenterology; Internal Medicine Nephrology; Physician Assistant; Admitting Provider Internal Medicine; Emergency Provider Family Medicine; PCP Family Medicine; Visit Provider Internal Medicine
PROC: 0DJ08ZZ Inspection of Upper Intestinal Tract, Via Natural or Artificial Opening Endoscopic (ICD-10-PCS; CPT 43235; principal; 2024-05-26 14:00)
DX: A41.9 Sepsis, unspecified organism (principal); J18.9 Pneumonia, unspecified organism; R65.21 Severe sepsis with septic shock; N17.0 Acute kidney failure with tubular necrosis; J96.01 Acute respiratory failure with hypoxia; J44.0 Chronic obstructive pulmonary disease with (acute) lower respiratory infection; D62 Acute posthemorrhagic anemia; I50.20 Unspecified systolic (congestive) heart failure; I13.0 Hypertensive heart and chronic kidney disease with heart failure and stage 1 through stage 4 chronic kidney disease, or unspecified chronic kidney disease; N39.0 Urinary tract infection, site not specified; I69.354 Hemiplegia and hemiparesis following cerebral infarction affecting left non-dominant side; K92.1 Melena; I24.89 Other forms of acute ischemic heart disease; E78.5 Hyperlipidemia, unspecified; J44.9 Chronic obstructive pulmonary disease, unspecified; I73.9 Peripheral vascular disease, unspecified; I65.29 Occlusion and stenosis of unspecified carotid artery; R55 Syncope and collapse; K29.30 Chronic superficial gastritis without bleeding; D63.1 Anemia in chronic kidney disease; N18.31 Chronic kidney disease, stage 3a; E86.0 Dehydration; M19.90 Unspecified osteoarthritis, unspecified site; E03.9 Hypothyroidism, unspecified; G47.33 Obstructive sleep apnea (adult) (pediatric); E11.22 Type 2 diabetes mellitus with diabetic chronic kidney disease; F17.210 Nicotine dependence, cigarettes, uncomplicated; Z79.82 Long term (current) use of aspirin; Z90.49 Acquired absence of other specified parts of digestive tract
CPT/HCPCS: 36415; 36430; 36556; 36600; 70450; 71045; 71250; 74176; 76775; 80048; 80053; 80069; 80202; 81001; 82274; 82375; 82436; 82550; 82565; 82570; 82805; 82948; 83036; 83050; 83605; 83735; 83880; 83935; 84100; 84133; 84156; 84300; 84443; 84484; 85014; 85018; 85025; 85380; 85610; 85652; 85999; 86140; 86704; 86706; 86738; 86850; 86900; 86901; 86923; 87040; 87070; 87077; 87086; 87181; 87205; 87340; 87449; 87637; 87641; 87899; 88305; 88342; 92610; 92611; 93005; 93880; 94002; 94003; 94640; 94667; 94668; 94669; 96361; 96374; 97110; 97116; 97161; 97166; 97530; 97535; 99285; A9270; C1751; C8929; J0360; J0692; J0696; J1644; J1720; J1815; J1939; J2003; J2185; J2405; J2470; J2704; J2919; J3370; J3475; J7030; J7040; J7050; J7120; P9016; P9047; Q5105; Q9957

== ENCOUNTER 2024-05-30 14:08 | Outpatient (NON) | payer MEDICARE, SELFPAY ==
[2024-05-30 15:45] LABS: Basophils Absolute Auto 0.1 K/mm3 (0.0-0.1); Basophils Percent Auto 0.7 % (0.2-1.2); Eosinophils Absolute Auto 0.2 K/mm3 (0-0.3); Eosinophils Percent Auto 3.2 % (0-4.4); Immature Granulocyte Absolute 0.01 K/mm3 (0.00-0.031); Immature Granulocyte Percent A 0.1 % (0-0.5); Lymphocytes Absolute Auto 0.99 K/mm3 (0.9-3.2); Lymphocytes Percent Auto 13.8 % (18.3-44.2); Mean Corpuscular HGB Conc 30.8 g/dl (32-36); Mean Corpuscular Hemoglobin 27.4 pg (26-34); Monocytes Absolute Auto 0.5 K/mm3 (0.1-0.6); Monocytes Percent Auto 6.7 % (2.6-8.5); Neutrophils Absolute Auto 5.4 K/mm3 (1.3-6.7); Neutrophils Percent Auto 75.5 % (45.5-73.1); Platelet Count Result 227 k/mm3 (150-375); Red Blood Count 2.92 M/mm3 (4.6-6.20); Red Cell Distribution Width 15.1 % (11.5-14.5); White Blood Count 7.2 K/mm3 (4.5-10.0)
[2024-05-30 15:54] LABS: Albumin Level 3.2 g/dL (3.5-5.1); Anion Gap 3 mmol/L (4-12); Blood Urea Nitrogen 21 mg/dL (9-20); Calcium 8.4 mg/dL (8.4-10.2); Carbon Dioxide 29 mmol/L (22-30); Chloride 109 mmol/L (98-107); Estimated Glomerular Filt Rate 40; Glucose 90 mg/dL (65-110); Phosphorus 3.9 mg/dL (2.5-4.5); Potassium 4.1 mmol/L (3.4-5.0); Sodium 141 mmol/L (137-145)
== END 2024-05-30 14:09 | disposition home or self-care (01) ==
PROVIDERS: PCP Family Medicine; Visit Provider Internal Medicine
DX: N17.9 Acute kidney failure, unspecified (principal)
CPT/HCPCS: 80069; 85025

== ENCOUNTER 2024-06-05 12:03 | Outpatient (CLI) | payer MEDICARE, SELFPAY ==
--- NOTE | ~2024-06-05 | XR_ITS ---
Clinical Indication: Pneumonia PA and lateral views of the chest: Comparison: 05/22/2024 Findings: Small right pleural effusion present with fluid in the right minor fissure. No other signif icant pulmonary abnormality aside from probable COPD.. Cardiomediastinal silhouette is within normal limits. Bones and soft tissues are unremarkable. Impression: Small right pleural effusion. COPD. Reviewed, dictated and finalized at location . ONOLOGIST Impression: Small right pleural effusion. COPD.
== END 2024-06-05 12:04 | disposition home or self-care (01) ==
PROVIDERS: PCP Family Medicine; Visit Provider Internal Medicine
DX: J18.9 Pneumonia, unspecified organism (principal); J90 Pleural effusion, not elsewhere classified; J44.9 Chronic obstructive pulmonary disease, unspecified
CPT/HCPCS: 71046

== ENCOUNTER 2024-07-08 09:16 | Outpatient (CLI) | payer MEDICARE, SELFPAY ==
--- NOTE | ~2024-07-08 | US_ITS ---
EXAMINATION: US venous doppler UE RT DATE: 07/08/2024 11:11 INDICATION: Right upper limb pain. TECHNIQUE: Grayscale ultrasound images without and with compression and Doppler ultrasound images of the right upper extremity veins were obtained. COMPARISON: None. FINDINGS: The visualized portions of the right internal jugular vein, subclavian vein, axillary vein, brachial veins, basilic vein, cephalic vein, radial vein, and ulnar vein are patent. IMPRESSION: 1. No deep venous thrombosis. Reviewed, dictated and finalized at location B. RVISOR ENGRAVING
--- NOTE | ~2024-07-08 | US_ITS ---
EXAMINATION: US art doppler w press LE BI DATE: 07/08/2024 11:10 INDICATION: Claudication TECHNIQUE: Segmental pressures and plethysmographic and Doppler waveforms of the brachial and lower e xtremity arteries were obtained. COMPARISON: None. FINDINGS: Right and left brachial artery pressures of 168 mm Hg and 175 mm Hg, respectively, are concordant (no rmal difference <= 30 mmHg). The right and left high-thigh pressure indices are 0.82 and 0.75, respec tively (normal > 1.2). The right ankle-brachial index (BONNIE) is 0.58 (normal >= 0.9-1). The right great toe-brachial index (T BI) is 0.41 (normal >= 0.6-0.8). The right lower extremity segmental pressure gradients are increased between the right above and [id number] popliteal artery as well as between the right below-the-k nee popliteal artery and the right dorsalis pedis artery (normal gradients <= 20-30 mmHg between giulia cent levels on the same leg or the same levels on the two legs). Arterial waveforms demonstrate brisk systolic upstrokes throughout the arteries of the right lower limb. The left BONNIE is 0.54. The left TBI is 0.22. The left lower extremity segmental pressure gradients are normal. Arterial waveforms demonstrate brisk systolic upstrokes throughout the arteries of the left lower limb. IMPRESSION: 1. 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 Reviewed, dictated and finalized at location A. LICENSE OFFICER SUPERVISOR IMPRESSION: 1. Mildly decreased bilateral high thigh pressure indices and moderately decrea sed bilateral ABIs suggesting both aortobiiliac and bilateral lower limb arteri al occlusive disease.
--- OUTSIDE RECORDS SUMMARY | 2024-07-10 16:44 | XMS_ITS | Clinical Summary ---
Author Organization [facility] Address [address] [place] [address] Care Team Providers Care Manager Rn Case Name Role Phone Dannie Burroughs MD Primary Care Provider [phone] Source Comments [facility],non-owned Affiliates and Associated Physician Practices is amultiple site organization consisting of ambulatory clinics and hospital sitesin [place], [place], [place] and [place]. This disclosure is being madepursuant to the Care Everywhere program and may not contain all information available regarding this patient. Last updated 18.[facility] Social History Tobacco Use Types Packs/Day Years Used Date Smoking Tobacco: Never Assessed Sex and Gender Information Value Date Recorded Sex Assigned at Not on file Gender Identity Not on file Sexual Orientation Not on file Plan of Treatment Health Maintenance Due Date Last Done Comments COLOGUARD (AGES 45-75) - COL ON CA SCREENING 1952 COLON MONITORING 1952 COLONOSCOPY - COLON CA SCREENING 1952 CT COLONOGRAPHY - COLON CA SCREENING 1952 Colorectal Cancer Screening 1952 FIT - COLON CA SCREENING 1952 FLEX SIG - COLON CA SCREENING 1952 LIPID TESTING 1952 HEPATITIS C SCREENING 04/19/1970 DTAP/TDAP/TD VACCINES (1 - Tdap) 1971 PNEUMOCOCCAL VACCINE 50+ (1 of 1 - PCV) 2002 ZOSTER VACCINE (1 of 2) 2002 COVID-19 VACCINE ( - 2023-2 5 season) 2024 INFLUENZA VACCINE (#1) 2024 07/01/2013 DEPRESSION SCREENING 06/18/2024 MEDICARE AWV ? CALENDAR YEAR 2024 Respiratory Syncytial Virus (RSV) Vaccine Pt: or over 60 yrs (1 - 1-dose 75+ series) 2027 HEPATITIS B VACCINE Aged Out No longe r eligible based on patient's age to complete this topic HIB VACCINE Aged Out No longer eligi ble based on patient's age to complete this topic HPV VACCINE Aged Out No longer eligi ble based on patient's age to complete this topic MENINGOCOCCAL (Group B) VACCINE Aged Out No longer eligible b ased on patient's age to complete this topic MENINGOCOCCAL VACCINE Aged Out No robin isaac eligible based on patient's age to complete this topic Care Teams Manager Rn Case Relationship Specialty Start Date End Date Dannie Burroughs MD [address] [place] [address] PCP - General 01/18/09
--- OUTSIDE RECORDS SUMMARY | 2024-07-10 16:44 | XMS_ITS | Referral Summary ---
Author Organization [facility] Address [address] [place] [address] Care Team Providers Care Food And Nutrition Services Supervisor Name Role Phone Dannie Burroughs MD Primary Care Provider [phone] Source Comments [facility],non-owned Affiliates and Associated Physician Practices is amultiple site organization consisting of ambulatory clinics and hospital sitesin [place], [place], [place] and [place]. This disclosure is being madepursuant to the Care Everywhere program and may not contain all information available regarding this patient. Last updated 18.[facility] Social History Tobacco Use Types Packs/Day Years Used Date Smoking Tobacco: Never Assessed Sex and Gender Information Value Date Recorded Sex Assigned at Not on file Gender Identity Not on file Sexual Orientation Not on file Plan of Treatment Not on file Care Teams Food And Nutrition Services Supervisor Relationship Specialty Start Date End Date Dannie Burroughs MD [address] [place] [address] PCP - General 01/18/09
--- OUTSIDE RECORDS SUMMARY | 2024-07-10 16:44 | XMS_ITS | Clinical Summary ---
Author Organization [place] [id number] Address [facility] [place] [address] Care Team Providers Care Computer Systems Hardware Analyst Name Role Phone Dannie Burroughs MD Primary Care Provider [phone] Allergies Active Allergy Reactions Criticality Noted Date Comments Codeine Penicillin G Sodium Unknown 12/23/2018 Tree Nut Unknown 12/23/2018 Medications albuterol HFA (PROAIR HFA) 90 mcg/actuation inhaler Active amLODIPine (NORVASC) 10 mg tablet 11/20/2018 Active EDARBI 80 mg 11/20/2018 Active carvedilol (COREG) 12.5 mg tablet 11/20/2018 Active citalopram (CeleXA) 40 mg tablet 11/20/2018 Active hydroCHLOROthia zide (HYDRODIURIL) 25 mg tablet 25 mg daily Activ e lamoTRIgine (LaMICtal) 100 mg tablet 11/20/2018 Active levothyroxine (SYNTHROID, LEVOTHROID) 150 mcg tablet 11/20/2018 Active rosuvastatin (CRESTOR) 10 mg tablet 10 mg daily Active tiotropium bromide (SPIRIVA RESPIMAT) 2.5 mcg/actuation inhaler daily Active valsartan (DIOVAN) 320 mg tablet Active vit C-vit E-hiejrr-ezdc-l utein (PRESERVISION LUTEIN) 226 mg-200 unit -5 mg-0.8 mg capsule Rx: PreserVision /Lutein - Capsule Active clopidogrel (PLAVIX) 75 mg tablet 11/22/[address] (CYMBALTA) 30 mg capsule 12/23/2018 Active ANORO ELLIPTA 62.5-25 mcg/actuation blister with device 12/23/2018 Active allopurinol (ZYLOPRIM) 100 mg tablet 04/07/2019 Active SYNJARDY 12.5-1,000 mg tablet 04/25/2019 Active predniSONE (DELTASONE) 20 mg tablet 05/21/2019 Active losartan (COZAAR) 100 mg tablet 08/19/2019 Active sulfamethoxazol e-trimethoprim (BACTRIM DS) 800-160 mg per tablet 11/13/2019 Active mupirocin (BACTROBAN) 2 % ointment 11/14/2019 Active HYDROcodone-josé miguel taminophen (NORCO) 7.5-325 mg per tablet 11/13/2019 Activ e doxycycline 100 mg tablet 11/19/2019 Active cephalexin (KEFLEX) 500 mg capsule 11/13/2019 Active Active Problems Problem Noted Date Diagnosed Date Atherosclerosis of [place] ar teries of extremities with intermittent claudication, right leg 04/11/2018 Assessment & Plan (08/28/2019 9:01 AM CDT): Patient has stable non disabling claudication the bilateral lower extremities. Has evidence of high-grade stenosis in the right superficial femoral artery although minimally symptomatic at this point continue conservative measures which included exercise and anti-platelet therapy follow-up 3 6 months. Assessment & Plan (12/26/2018 5:29 PM CDT): Patient doing well status post surgical intervention to right femoral artery on 04/29/2018. No recurrence symptoms. Plan: Follow-up in 6 months for re-evaluation with right lower extremity arterial duplex. Chronic obstructive pulmonary disease 04/09/2018 Dyspnea 04/09/2018 History of right-sided carotid endarterectomy Assessment & Plan (12/26/2018 5:29 PM CDT): Status post right carotid endarterectomy in the past. Most recent bilateral carotid artery duplex performed in March of 2018 without recurrence stenosis. Plan: Follow-up in 6 months for re-evaluation with bilateral carotid artery duplex. Hyperlipidemia 04/09/2018 Assessment & Plan (08/28/2019 9:01 AM CDT): Per patient cholesterol levels remain well controlled he is tolerating statin therapy. Continue per primary care physician Hypertensive heart disease without heart failure 04/09/2018 Syncope 11/21/2011 Hypertension 11/16/2011 Assessment & Plan (08/28/2019 9:02 AM CDT): Per patient blood pressure is well controlled continue current antihypertensive regimen per primary care physician Immunizations Name Administration Dates Next Due Influenza, Split 07/01/2013 Influenza, Trivalent, High D ose, Split, Preservative Free, Intramuscular 06/24/2018 Pneumococcal Conjugate PCV 13 06/24/2018 Surgical History Surgery Date Site/Laterality Comments FEMORAL ENDARTERECTOMY 04/29/2018 Right angioplasty CAROTID ENDARTERECTOMY Right [facility] Medical History Medical History Date Comments Hypertension Hypertension Hx Other Medical Dyslipidemia Hypothyroidism Hypothyroidism Hx Other Medical Recurrent synco pe after coughing Hx Other Medical Bilateral Carot id Disease 50-69% Personal history of other di seases of the circulatory system History of hypertension - (A dded by TW Conv) Personal history of other en docrine, nutritional and metabolic disease History of hyperlipi demia - (Added by TW Conv) Family History Medical History Relation Name Comments Stroke Father Stroke; Heart attack Mother Myocardial Infa rction; Heart disease Mother Family history of cardiac disorder - (Added by TW Conv) Hypertension Other 3 Hypertension; Diabetes type II Other 4 Diabetes Ty pe II; Diabetes Sister Family history of diabetes mellitus - (Added by TW Conv) Relation Name Status Comments Father Mother Other 1 Alive Other 2 Alive Other 3 Other 4 Sister Social History Tobacco Use Types Packs/Day Years Used Date Smoking Tobacco: Former Alcohol Use Standard Drinks/Week Comments No 0 (1 standard drink = 0.6 oz pur e alcohol) Sex and Gender Information Value Date Recorded Sex Assigned at Not on file Legal 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 Gender Identity Not on file Sexual Orientation Not on file Obstetrics History Last Filed Vital Signs Vital Sign Reading Time Taken Comments Blood Pressure 137/79 08/27/2019 9:45 AM CDT Pulse 69 08/27/2019 9:45 AM CDT Temperature 36.8 ??C (98.2 ??F) 08/27/2019 9:45 AM CD T Respiratory Rate - - Oxygen Saturation 94% 05/01/2018 12:00 PM ASSEMBLER TUBING Inhaled Oxygen Concentration - - Weight 90.7 kg (200 lb) 08/27/2019 9:45 AM CDT Height 170.2 cm (5' 7 ) 08/27/2019 9:45 AM CDT Body Mass Index 31.32 08/27/2019 9:45 AM CDT Plan of Treatment Not on file Insurance [employer] [facility]IC[facility] Care Teams Computer Systems Hardware Analyst Relationship Specialty Start Date End Date Dannie Burroughs MD PCP - General 06/23/11
--- OUTSIDE RECORDS SUMMARY | 2024-07-10 16:44 | XMS_ITS | Encounter Summary ---
Author Organization [facility] Care Team Providers Care Real Estate Consultant Name Role Phone Dannie Burroughs MD Primary Care Provider [phone] Encounter Details Date Type Department Care Team (Latest Contact Info) Description 04/08/2018 Orders Only [facility] CLINCONV ProviderSancho MD [address] [place] [id number] Social History Tobacco Use Types Packs/Day Years Used Date Smoking Tobacco: Former Alcohol Use Standard Drinks/Week Comments No 0 (1 standard drink = 0.6 oz pur e alcohol) Sex and Gender Information Value Date Recorded Sex Assigned at Not on file 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 Historical Provider Final Res ult documented in this encounter Visit Diagnoses Not on filedocumented in this encounter Care Teams Real Estate Consultant Relationship Specialty Start Date End Date Dannie Burroughs MD PCP - General 06/23/11 documented as of this encounter
--- OUTSIDE RECORDS SUMMARY | 2024-07-10 16:44 | XMS_ITS | Patient Health Summary ---
Author Organization [facility] Address [address] [place] [address] Care Team Providers Care Paper Rewinder Name Role Phone Dannie Burroughs MD Primary Care Provider [phone] Note from [facility],non-owned Affiliates and Associated Physician Practices is amultiple site organization consisting of ambulatory clinics and hospital sitesin [place], [place], [place] and [place]. This disclosure is being madepursuant to the Care Everywhere program and may not contain all information available regarding this patient. Last updated 18.[facility] Social History Tobacco Use Types Packs/Day Years Used Date Smoking Tobacco: Never Assessed Sex and Gender Information Value Date Recorded Sex Assigned at Not on file Gender Identity Not on file Sexual Orientation Not on file Procedures * DERMATOPATHOLOGY(Performed 04/08/2019) Results * DERMATOPATHOLOGY (04/08/2019 12:00 AM CDT) Case Report Dermatopathology Report ? Case: [id number] ? Authorizing Provider: ??Dannie Burroughs MD ? Collected: ? 04/08/2019 12:00 AM ? Ordering Location: ? [facility] Care DermPath Lab ?Received: ?04/10/2019 01:05 PM ? Pathologist: ? Chidi Camara MD ? Specimens: ?? A) - Skin, left back ? B) - Skin, left front ? C) - Skin, right eyelid ? 2:50 PM CDT DERMATOPATHOLOGY LABORATORY Final Diagnosis Specimen A. SKIN, left back: SEBORRHEIC KERATOSIS (L82.1) PRESENT AT MARGIN Specimen B. SKIN, left front: SEBORRHEIC KERATOSIS, IRRITATED AND INFLAMED (L82.0) NOT PRESENT AT SAMPLED MARGIN Specimen C. 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 Check margins. 2:50 PM CDT DERMATOPATHOLOGY LABORATORY Gross Description Specimen A: Received is one formalin filled container labeled with the patient's name and designated left back. The specimen consists of a shave biopsy (2 pieces) measuring [id number] & 6x4x2. The margins are inked green. Jar 0. Specimen B: Received is one formalin filled container labeled with the patient's name and designated left front. The specimen consists of a shave biopsy measuring [id number], bisected. The margin is inked green. Jar 0. Specimen C: Received is one formalin filled container labeled with the patient's name and designated right eyelid. The specimen consists of a shave biopsy (2 pieces) measuring [id number] & [id number]. The margins are inked green. Jar 0. 2:50 PM CDT DERMATOPATHOLOGY LABORATORY Microscopic Description Specimen A. SKIN, left back: Sections show an acanthotic lesion composed of relatively uniform keratinocytes. There is hyperkeratosis and pseudo horn cysts formation. This lesion is present at the margin of the specimen. Specimen B. SKIN, left front: Sections show acanthosis, papillomatosis, hyperkeratosis, and squamous eddies. There is a lymphohistiocytic infiltrate within the papillary dermis. This lesion is not present at the sampled margin of the specimen. Specimen C. SKIN, right eyelid: There is hyperkeratosis, papillomatosis, and acanthosis of the epidermis. The keratinocytes are mature. This lesion is present at the margin of the specimen. 2:50 PM CDT DERMATOPATHOLOGY LABORATORY Disclaimer An external and internal positive and negative controls are appropriate for the histochemical, immunohistochemical and immunofluorescence stain(s) in this case (if any), except where stated explicitly. The performance characteristics of the stain(s) cited in this report were developed and its performance characteristic determined by the Dermatopathology Laboratory at [facility], directed by Dr. Van Camara. These tests need not be, and therefore are not, approved by the [place] Food and Drug Administration. The tests are used for clinical purposes. Billing Codes Specimen Charges Stain Charges 70942 36522 59540 1 1 1 2:50 PM CDT DERMATOPATHOLOGY LABORATORY Embedded Images 2:50 PM CDT DERMATOPATHOLOGY LABORATORY Pathology/Cytology TISSUE SPECIMEN FROM SKIN / Unknown 04/08/2019 04/10/2019 1:05 PM CDT Miscellaneous samples (specimen) TISSUE SPECIMEN FROM SKIN / Unknown 04/08/2019 04/10/2019 1:05 PM CDT Miscellaneous samples (specimen) TISSUE SPECIMEN FROM SKIN / Unknown 04/08/2019 04/10/2019 1:05 PM CDT Dannie Burroughs MD LAB - PATHOLOGY/CYTO LOGY ORDERABLES DERMATOPATHOLOGY LABORATORY [facility] - Department of Dermatology [address] [place] [address] [address] Floor Lab [address] [phone] Care Teams Paper Rewinder Relationship Specialty Start Date End Date Dannie Burroughs MD [address] [place] [address] PCP - General 01/18/09
--- OUTSIDE RECORDS SUMMARY | 2024-07-10 16:44 | XMS_ITS | Encounter Summary ---
Author Organization [facility] Care Team Providers Care Submarine Element Coordinator Name Role Phone Dannie Burroughs MD Primary Care Provider [phone] Encounter Details Date Type Department Care Team (Latest Contact Info) Description 04/12/2018 Orders Only [facility] CLINCONV ProviderSancho MD [address] [place] [address] Social History Tobacco Use Types Packs/Day Years Used Date Smoking Tobacco: Former Alcohol Use Standard Drinks/Week Comments No 0 (1 standard drink = 0.6 oz pur e alcohol) Sex and Gender Information Value Date Recorded Sex Assigned at Not on file Legal Sex Male 2:11 AM PRACTICE MANAGERS Gender Identity Not on file Sexual Orientation Not on file documented as of this encounter Plan of Treatment Not on file documented as of this encounter Procedures Procedure Name Priority Date/Time Associated Diagnosis Comments PROCEDURE - RESULT 04/12/2018 12 :00 AM CDT documented in this encounter Results * PROCEDURE - RESULT (04/12/2018 12:00 AM CDT) Narrative 04/12/2018 12:00 AM CDT Ordered by an unspecified provider. Historical Provider Final Res ult documented in this encounter Visit Diagnoses Not on filedocumented in this encounter Care Teams Submarine Element Coordinator Relationship Specialty Start Date End Date Dannie Burroughs MD PCP - General 06/23/11 documented as of this encounter
--- OUTSIDE RECORDS SUMMARY | 2024-07-10 16:44 | XMS_ITS | Encounter Summary ---
Author Organization [facility] Care Team Providers Care Medical Donation Professional Name Role Phone Dannie Burroughs MD Primary Care Provider [phone] Encounter Details Date Type Department Care Team (Latest Contact Info) Description 04/29/2018 Orders Only [facility] CLINCONV ProviderSancho MD [address] [place] [address] Social History Tobacco Use Types Packs/Day Years Used Date Smoking Tobacco: Former Alcohol Use Standard Drinks/Week Comments No 0 (1 standard drink = 0.6 oz pur e alcohol) Sex and Gender Information Value Date Recorded Sex Assigned at Not on file Legal Sex Male 2:11 AM CHUCKER Gender Identity Not on file Sexual Orientation Not on file documented as of this encounter Plan of Treatment Not on file documented as of this encounter Procedures Procedure Name Priority Date/Time Associated Diagnosis Comments SCAN - PATHOLOGY 04/30/2018 12:0 0 AM CHUCKER PROCEDURE - RESULT 04/22/2018 12 :00 AM CHUCKER documented in this encounter Results * SCAN - PATHOLOGY (04/30/2018 12:00 AM CHUCKER) Narrative 04/30/2018 12:00 AM CHUCKER Ordered by an unspecified provider. Historical Provider Final Res ult * PROCEDURE - RESULT (04/22/2018 12:00 AM CHUCKER) Narrative 04/22/2018 12:00 AM CHUCKER Ordered by an unspecified provider. Historical Provider Final Res ult documented in this encounter Visit Diagnoses Not on filedocumented in this encounter Care Teams Medical Donation Professional Relationship Specialty Start Date End Date Dannie Burroughs MD PCP - General 06/23/11 documented as of this encounter
--- OUTSIDE RECORDS SUMMARY | 2024-07-10 16:44 | XMS_ITS | Encounter Summary ---
Author Organization [facility] Address [address] [place] [address] Care Team Providers Care Medical Transcription Radiology Name Role Phone Dannie Burroughs MD Primary Care Provider [phone] Encounter Details Date Type Department Care Team (Late st Contact Info) Description 04/10/2019 Lab Requisition [facility] Care DermPath Lab [address] [facility] [place] [address] Dannie Burroughs MD [address] [place] [id number] Social History Tobacco Use Types Packs/Day Years Used Date Smoking Tobacco: Never Assessed Sex and Gender Information Value Date Recorded Sex Assigned at Not on file Gender Identity Not on file Sexual Orientation Not on file documented as of this encounter Plan of Treatment Not on file documented as of this encounter Procedures Procedure Name Priority Date/Time Associated Diagnosis Comments DERMATOPATHOLOGY Routine 04/08/2019 12:0 0 AM CDT documented in this encounter Results * DERMATOPATHOLOGY (04/08/2019 12:00 AM CDT) Case Report Dermatopathology Report ? Case: [id number] ? Authorizing Provider: ??Dannie Burroughs MD ? Collected: ? 04/08/2019 12:00 AM ? Ordering Location: ? [facility] DermPath Lab ?Received: ?04/10/2019 01:05 PM ? Pathologist: ? Chidi Camara MD ? Specimens: ?? A) - Skin, left back ? B) - Skin, left front ? C) - Skin, right eyelid ? 9 2:50 PM CDT DERMATOPATHOLOGY LABORATORY Final Diagnosis Specimen A. SKIN, left back: SEBORRHEIC KERATOSIS (L82.1) PRESENT AT MARGIN Specimen B. SKIN, left front: SEBORRHEIC KERATOSIS, IRRITATED AND INFLAMED (L82.0) NOT PRESENT AT SAMPLED MARGIN Specimen C. SKIN, right eyelid: SQUAMOUS PAPILLOMA, BENIGN (L91.8) PRESENT AT MARGIN 9 2:50 PM CDT DERMATOPATHOLOGY LABORATORY Clinical History A-C: Changing lesion. Check margins. 2:50 PM T DERMATOPATHOLOGY LABORATORY Gross Description Specimen A: Received is one formalin filled container labeled with the patient's name and designated left back. The specimen consists of a shave biopsy (2 pieces) measuring [id number] & 6x4x2. The margins are inked green. Jar 0. Specimen B: Received is one formalin filled container labeled with the patient's name and designated left front. The specimen consists of a shave biopsy measuring [id number], bisected. The margin is inked green. Jar 0. Specimen C: Received is one formalin filled container labeled with the patient's name and designated right eyelid. The specimen consists of a shave biopsy (2 pieces) measuring [id number] & [id number]. The margins are inked green. Jar 0. 2:50 PM T DERMATOPATHOLOGY LABORATORY Microscopic Description Specimen A. SKIN, [...] the margin of the specimen. 2:50 PM T DERMATOPATHOLOGY LABORATORY Disclaimer An external and internal positive and negative controls are appropriate for the histochemical, immunohistochemical and immunofluorescence stain(s) in this case (if any), except where stated explicitly. The performance characteristics of the stain(s) cited in this report were developed and its performance characteristic determined by the Dermatopathology Laboratory at [facility], directed by Dr. Van Camara. These tests need not be, and therefore are not, approved by the [place] Food and Drug Administration. The tests are used for clinical purposes. Billing Codes Specimen Charges Stain Charges 65144 [id number] [id number] 1 1 1 2:50 PM CDT DERMATOPATHOLOGY LABORATORY Embedded Images 10/25/201 9 2:50 PM CDT DERMATOPATHOLOGY LABORATORY Pathology/Cytology TISSUE SPECIMEN FROM SKIN / Unknown 04/08/2019 04/10/2019 1:05 PM CDT Miscellaneous samples (specimen) TISSUE SPECIMEN FROM SKIN / Unknown 04/08/2019 04/10/2019 1:05 PM CDT Miscellaneous samples (specimen) TISSUE SPECIMEN FROM SKIN / Unknown 04/08/2019 04/10/2019 1:05 PM CDT Dannie Burroughs MD LAB - PATHOLOGY/CYTO LOGY ORDERABLES DERMATOPATHOLOGY LABORATORY [facility] - Department of Dermatology [address] [place] [address] [address] [phone] documented in this encounter Visit Diagnoses Not on filedocumented in this encounter Care Teams Medical Transcription Radiology Relationship Specialty Start Date End Date Dannie Burroughs MD [address] [place] [address] PCP - General 01/18/09 documented as of this encounter
--- OUTSIDE RECORDS SUMMARY | 2024-07-10 16:44 | XMS_ITS | Referral Summary ---
Author Organization [place] [id number] [facility] Address [facility] [place] [address] Care Team Providers Care Personal Injury Paralegal Name Role Phone Dannie Burroughs MD Primary Care Provider [phone] Allergies Active Allergy Reactions Criticality Noted Date [...] (DIOVAN) 320 mg tablet Active vit C-vit A-lnqauy-ckby-l utein (PRESERVISION LUTEIN) 226 mg-200 unit -5 [...] Problem Noted Date Diagnosed Date Atherosclerosis of [place] ar teries of extremities with intermittent claudication, [...] Intramuscular 06/24/2018 Pneumococcal Conjugate PCV 13 06/24/2018 Social History Tobacco Use Types Packs/Day Years Used Date Smoking Tobacco: Former Alcohol Use Standard Drinks/Week Comments No 0 (1 standard drink = 0.6 oz pur e alcohol) Sex and Gender Information Value Date Recorded Sex Assigned at Not on file Legal Sex Male 2:11 AM CLIENT SERVICES ASSISTANT Gender Identity Not on file Sexual Orientation Not on file Last Filed Vital Signs Vital Sign Reading Time Taken Comments Blood Pressure 137/79 08/27/2019 9:45 AM CDT Pulse 69 08/27/2019 9:45 AM CDT Temperature 36.8 ??C (98.2 ??F) 08/27/2019 9:45 AM CD T Respiratory Rate - - Oxygen Saturation 94% 05/01/2018 12:00 PM CLIENT SERVICES ASSISTANT Inhaled Oxygen Concentration - - Weight 90.7 kg (200 lb) 08/27/2019 9:45 AM CDT Height 170.2 cm (5' 7 ) 08/27/2019 9:45 AM CDT Body Mass Index 31.32 08/27/2019 9:45 AM CDT Plan of Treatment Not on file [place] [address] [facility]ICARE [facility] Care Teams Personal Injury Paralegal Relationship Specialty Start Date End Date Dannie Burroughs MD PCP - General 06/23/11
== END 2024-07-08 09:17 | disposition home or self-care (01) ==
PROVIDERS: PCP Family Medicine; Visit Provider Family Medicine
DX: R09.89 Other specified symptoms and signs involving the circulatory and respiratory systems (principal); M79.601 Pain in right arm; M79.89 Other specified soft tissue disorders
CPT/HCPCS: 93923; 93971

== ENCOUNTER 2024-08-21 07:49 | Outpatient (CLI) | payer MEDICARE, SELFPAY ==
--- OUTSIDE RECORDS SUMMARY | 2024-08-21 07:58 | XMS_ITS | Referral Summary ---
Author Organization [facility] Address [address] [place] [address] Care Team Providers Care Radiation Engineer Name Role Phone Dannie Burroughs MD Primary Care Provider [phone] Source Comments [facility],non-owned Affiliates and Associated Physician Practices is amultiple site organization consisting of ambulatory clinics and hospital sitesin [place], [place], [place] and [place]. This disclosure is being madepursuant to the Care Everywhere program and may not contain all information available regarding this patient. Last updated 18.[facility] HistoryFile Social History Tobacco Use Types Packs/Day Years Used Date Smoking Tobacco: Never Assessed Sex and Gender Information Value Date Recorded Sex Assigned at Not on file Gender Identity Not on file Sexual Orientation Not on file Plan of Treatment Not on file Care Teams Radiation Engineer Relationship Specialty Start Date End Date Dannie Burroughs MD [address] [place] [address] PCP - General 01/18/09
--- OUTSIDE RECORDS SUMMARY | 2024-08-21 07:58 | XMS_ITS | Clinical Summary ---
Author Organization [facility] Address [address] [place] [address] Care Team Providers Care Discharge Coordinator Name Role Phone Dannie Burroughs MD Primary Care Provider [phone] Source Comments [facility] [employer],non-owned Affiliates and Associated Physician Practices is amultiple site organization consisting of ambulatory clinics and hospital sitesin [place], [place], [place] and [place]. This disclosure is being madepursuant to the Care Everywhere program and may not contain all information available regarding this patient. Last updated 18.[facility] [employer] Social History Tobacco Use Types Packs/Day Years [...] 2024 07/01/2013 DEPRESSION SCREENING 06/18/2024 MEDICARE AWV CALENDAR YEAR 2024 Respiratory Syncytial Virus (RSV) [...] age to complete this topic Care Teams Discharge Coordinator Relationship Specialty Start Date End Date Dannie Burroughs MD [address] [place] [address] PCP - General 01/18/09
--- OUTSIDE RECORDS SUMMARY | 2024-08-21 07:58 | XMS_ITS | Referral Summary ---
Author Organization [address] Address [address] [place] [address] Care Team Providers Care Check Cashier Name Role Phone Dannie Burroughs MD Primary Care Provider [phone] Allergies Active Allergy Reactions Criticality Noted Date [...] (DIOVAN) 320 mg tablet Active vit C-vit U-ihbbqp-ryke-l utein (PRESERVISION LUTEIN) 226 mg-200 unit -5 [...] Problem Noted Date Diagnosed Date Atherosclerosis of [place] ar teries of extremities with intermittent claudication, [...] antihypertensive regimen per primary care physician Immunizations Immunization Administration Dates Next Due Influenza, Split 07/01/2013 [...] on file 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 Gender Identity Not on file Sexual Orientation Not on file Last Filed Vital Signs Vital Sign Reading Time Taken Comments Blood Pressure 137/79 08/27/2019 9:45 AM CDT Pulse 69 08/27/2019 9:45 AM CDT Temperature 36.8 C (98.2 F) 08/27/2019 9:45 AM CDT Respiratory Rate - - Oxygen Saturation 94% 05/01/2018 12:00 PM PURCHASING CONTRACTING CLERK Inhaled Oxygen Concentration - - Weight 90.7 kg (200 lb) 08/27/2019 9:45 AM CDT Height 170.2 cm (5' 7 ) 08/27/2019 9:45 AM CDT Body Mass Index 31.32 08/27/2019 9:45 AM CDT Plan of Treatment Not on file Insurance [employer] MEDICARE GOLD [employer] MEDICARE GOLD Care Teams Check Cashier Relationship Specialty Start Date End Date Dannie Burroughs MD PCP - General 06/23/11
--- OUTSIDE RECORDS SUMMARY | 2024-08-21 07:58 | XMS_ITS | Clinical Summary ---
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 Gender Identity Not on file Sexual Orientation Not on file Obstetrics History Last Filed Vital Signs Vital Sign Reading Time Taken Comments Blood Pressure 137/79 08/27/2019 9:45 AM CDT Pulse 69 08/27/2019 9:45 AM CDT Temperature 36.8 C (98.2 F) 08/27/2019 9:45 AM CDT Respiratory Rate - - Oxygen Saturation 94% 05/01/2018 12:00 PM DIGITAL MARKETING APPRENTICE Inhaled Oxygen Concentration - - Weight 90.7 kg (200 lb) 08/27/2019 9:45 AM CDT Height 170.2 cm (5' 7 ) 08/27/2019 9:45 AM CDT Body Mass Index 31.32 08/27/2019 9:45 AM CDT Plan of Treatment Health Maintenance Due Date Last Done Comments Colon Cancer Screening-Colonoscopy 1952 Depression Screening 1952 Fall Risk Assessment 1952 Hepatitis C Screening 1952 DTaP/Tdap/Td Vaccine (1 - Tdap) 1963 Hepatitis B Screening 1970 Zoster Vaccine (1 of 2) 2002 Abdominal Aortic Aneurysm (AAA) Screen 2017 Well Visit 65+ 2017 Pneumococcal vaccine 65+ (2 of 2 - PPSV23) 08/19/2018 06/24/2018 Influenza Vaccine (#1) 2024 06/24/2018, 2013 Insurance MEDICARE [facility] AETNA MEDICARE GOLD Care Teams Locker Attendant Relationship Specialty Start Date End Date Dannie Burroughs MD PCP - General 06/23/11
--- OUTSIDE RECORDS SUMMARY | 2024-08-21 07:58 | XMS_ITS | Patient Health Summary ---
Author Organization [facility] Address [address] [facility] [place] [address] Care Team Providers Care Head Animal Trainer Name Role Phone Dannie Burroughs MD Primary Care Provider [phone] [facility],non-owned Affiliates and Associated Physician Practices is amultiple site organization consisting of ambulatory clinics and hospital sitesin [place], [place], [place] and [place]. This disclosure is being madepursuant to the Care Everywhere program and may not contain all information available regarding this patient. Last updated 18.[facility] Social History Tobacco Use Types Packs/Day Years Used Date Smoking Tobacco: Never Assessed Sex and Gender Information Value Date Recorded Sex Assigned at Not on file Gender Identity Not on file Sexual Orientation Not on file Procedures * DERMATOPATHOLOGY(Performed 04/08/2019) Results * DERMATOPATHOLOGY (04/08/2019 12:00 AM CDT) Case Report Dermatopathology Report Case: [id number] Authorizing Provider: Dannie Burroughs MD Collected: 04/08/2019 12:00 AM Ordering Location: [facility] DermPath Lab Received: 04/10/2019 01:05 PM Pathologist: Chidi Camara MD Specimens: A) - Skin, left back B) - Skin, left front C) - Skin, right eyelid 9 2:50 PM CDT DERMATOPATHOLOGY LABORATORY Final Diagnosis Specimen A. SKIN, left back: SEBORRHEIC KERATOSIS (L82.1) PRESENT AT MARGIN Specimen B. SKIN, left front: SEBORRHEIC KERATOSIS, IRRITATED AND INFLAMED (L82.0) NOT PRESENT AT SAMPLED MARGIN Specimen C. 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 Check margins. 2:50 PM [facility] DERMATOPATHOLOGY LABORATORY Gross Description Specimen A: Received is one formalin filled container labeled with the patient's name and designated left back. The specimen consists of a shave biopsy (2 pieces) measuring [id number] & 6x4x2. The margins are inked green. Jar 0. Specimen B: Received is one formalin filled container labeled with the patient's name and designated left front. The specimen consists of a shave biopsy measuring [id number], bisected. The margin is inked green. Jar 0. Specimen C: Received is one formalin filled container labeled with the patient's name and designated right eyelid. The specimen consists of a shave biopsy (2 pieces) measuring [id number] & 4t4t4pd. The margins are inked green. Jar 0. 2:50 PM [facility] DERMATOPATHOLOGY LABORATORY Microscopic Description Specimen A. SKIN, [...] the margin of the specimen. 2:50 PM [facility] DERMATOPATHOLOGY LABORATORY Disclaimer An external and internal positive and negative controls are appropriate for the histochemical, immunohistochemical and immunofluorescence stain(s) in this case (if any), except where stated explicitly. The performance characteristics of the stain(s) cited in this report were developed and its performance characteristic determined by the Dermatopathology Laboratory at [facility], directed by Dr. Van Camara. These tests need not be, and therefore are not, approved by the [place] Food and Drug Administration. The tests are used for clinical purposes. Billing Codes Specimen Charges Stain Charges 02826 56455 18388 1 1 1 9 2:50 PM CDT DERMATOPATHOLOGY LABORATORY Embedded Images 9 2:50 PM CDT DERMATOPATHOLOGY LABORATORY Pathology/Cytology TISSUE SPECIMEN FROM SKIN / Unknown 04/08/2019 04/10/2019 1:05 PM CDT Miscellaneous samples (specimen) TISSUE SPECIMEN FROM SKIN / Unknown 04/08/2019 04/10/2019 1:05 PM CDT Miscellaneous samples (specimen) TISSUE SPECIMEN FROM SKIN / Unknown 04/08/2019 04/10/2019 1:05 PM CDT Dannie Burroughs MD LAB - PATHOLOGY/CYTO LOGY ORDERABLES DERMATOPATHOLOGY LABORATORY [facility] - Department of Dermatology [address] [place] [address], [address] Floor Lab [address] [phone] Care Teams Head Animal Trainer Relationship Specialty Start Date End Date Dannie Burroughs MD [address] [place] [address] PCP - General 01/18/09
--- OUTSIDE RECORDS SUMMARY | 2024-08-21 07:58 | XMS_ITS | Encounter Summary ---
Author Organization [facility] Address [address] [facility] [place] [address] Care Team Providers Care Rug Dry Room Attendant Name Role Phone Dannie Burroughs MD Primary Care Provider [phone] Encounter Details Date Type Department Care Team (Late st Contact Info) Description 04/10/2019 Lab Requisition [facility] DermPath Lab [address] [place] [phone] Dannie Burroughs MD [address] [place] [phone] Social History Tobacco Use Types Packs/Day Years [...] AM CDT) Case Report Dermatopathology Report Case: [id number] Authorizing Provider: Dannie Burroughs MD Collected: 04/08/2019 12:00 AM Ordering Location: [facility] DermPath Lab Received: 04/10/2019 01:05 PM [...] BENIGN (L91.8) PRESENT AT MARGIN 2:50 PM [facility] DERMATOPATHOLOGY LABORATORY Clinical History A-C: Changing lesion. Check margins. 2:50 PM [facility] DERMATOPATHOLOGY LABORATORY Gross Description Specimen A: Received is one formalin filled container labeled with the patient's name and designated left back. The specimen consists of a shave biopsy (2 pieces) measuring [id number] & 6x4x2. The margins are inked green. Jar 0. Specimen B: Received is one formalin filled container labeled with the patient's name and designated left front. The specimen consists of a shave biopsy measuring [id number], bisected. The margin is inked green. Jar 0. Specimen C: Received is one formalin filled container labeled with the patient's name and designated right eyelid. The specimen consists of a shave biopsy (2 pieces) measuring [id number] & [id number]. The margins are inked green. Jar 0. 2:50 PM [facility] DERMATOPATHOLOGY LABORATORY Microscopic Description Specimen A. SKIN, [...] the margin of the specimen. 2:50 PM [facility] DERMATOPATHOLOGY LABORATORY Disclaimer An external and internal positive and negative controls are appropriate for the histochemical, immunohistochemical and immunofluorescence stain(s) in this case (if any), except where stated explicitly. The performance characteristics of the stain(s) cited in this report were developed and its performance characteristic determined by the Dermatopathology Laboratory at [facility], directed by Dr. Van Camara. These tests need not be, and therefore are not, approved by the [place] Food and Drug Administration. The tests are used for clinical purposes. Billing Codes Specimen Charges Stain Charges 26370 07136 00400 1 1 1 9 2:50 PM CDT [...] LAB - PATHOLOGY/CYTO LOGY ORDERABLES DERMATOPATHOLOGY LABORATORY [facility] - Department of Dermatology [address] [place] [address], 5th Floor Lab [address] [phone] documented in this encounter Visit Diagnoses Not on filedocumented in this encounter Care Teams Rug Dry Room Attendant Relationship Specialty Start Date End Date Dannie Burroughs MD [address] [place] [phone] PCP - General 01/18/09 documented as of this encounter
--- OUTSIDE RECORDS SUMMARY | 2024-08-21 07:58 | XMS_ITS | Encounter Summary ---
Author Organization [facility] Facility Care Team Providers Care Tea Blender Name Role Phone Dannie Burroughs MD Primary Care Provider [phone] Encounter Details Date Type Department Care Team (Latest Contact Info) Description 04/08/2018 Orders Only [facility] CLINCONV ProviderSancho MD [address] [place] [address] Social History Tobacco Use Types Packs/Day Years Used Date Smoking Tobacco: Former Alcohol Use Standard Drinks/Week Comments No 0 (1 standard drink = 0.6 oz pur e alcohol) Sex and Gender Information Value Date Recorded Sex Assigned at Not on file 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 us Historical Provider Final Res ult documented in this encounter Visit Diagnoses Not on filedocumented in this encounter Care Teams Tea Blender Relationship Specialty Start Date End Date Dannie Burroughs MD PCP - General 06/23/11 documented as of this encounter
--- OUTSIDE RECORDS SUMMARY | 2024-08-21 07:58 | XMS_ITS | Encounter Summary ---
Author Organization [facility] Facility Care Team Providers Care Gunstock Repairer Name Role Phone Dannie Burroughs MD Primary Care Provider [phone] Encounter Details Date Type Department Care Team (Latest Contact Info) Description 04/12/2018 Orders Only [facility] CLINCONV ProviderSancho MD [address] [place] [address] Social History Tobacco Use Types Packs/Day Years Used Date Smoking Tobacco: Former Alcohol Use Standard Drinks/Week Comments No 0 (1 standard drink = 0.6 oz pur e alcohol) Sex and Gender Information Value Date Recorded Sex Assigned at Not on file 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
--- OUTSIDE RECORDS SUMMARY | 2024-08-21 07:58 | XMS_ITS | Encounter Summary ---
Author Organization [facility] Facility Care Team Providers Care Production Support Supervisor Name Role Phone Dannie Burroughs MD Primary Care Provider [phone] Encounter Details Date Type Department Care Team (Latest Contact Info) Description 04/29/2018 Orders Only [facility] CLINCONV ProviderSancho MD [address] [place] [address] Social History Tobacco Use Types Packs/Day Years Used Date Smoking Tobacco: Former Alcohol Use Standard Drinks/Week Comments No 0 (1 standard drink = 0.6 oz pur e alcohol) Sex and Gender Information Value Date Recorded Sex Assigned at Not on file 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 Historical Provider Final Res ult * PROCEDURE - RESULT (04/22/2018 12:00 AM RESIDENT PROGRAMS ASSISTANT) Narrative 04/22/2018 12:00 AM RESIDENT PROGRAMS ASSISTANT Ordered by an unspecified provider. Historical Provider Final Res ult documented in this encounter Visit Diagnoses Not on filedocumented in this encounter Care Teams Production Support Supervisor Relationship Specialty Start Date End Date Dannie Burroughs MD PCP - General 06/23/11 documented as of this encounter
--- NOTE | 2024-08-21 08:05 | ECHO_ITS ---
Patient Info Name: Eladio Morrissey Age: 74 years : 1950 Gender: Male Ht: 67 in Wt: 160 lbs BSA: 1.86 m2 HR: 67 bpm BP: 157 / 82 mmHg Technical Quality: Good Exam Date: 08/21/2024 8:21 AM Exam Location: Echo Lab Patient Status: Outpatient Admit Date: 08/21/2024 Staff Ordering Physician: Hunter Shah DO Plastic Eye Technician: Aleksandra Kent RDCS Attending Provider: Hunter Shah DO Referring Physician: Pablo ANTONIO; Exam Type: CA echo doppler color flow Study Info Indications - Heart Disease I51.9 Complete two-dimensional, color flow and Doppler transthoracic echocardiogram is performed. Summary 1. Complete two-dimensional, color flow and Doppler transthoracic echocardiogram is performed. 2. Left ventricular chamber dimension is severely enlarged. 3. Left ventricular systolic function is moderately globally reduced, estimated at 40-45%. 4. There is mild concentric increased left ventricular wall thickness. 5. The left ventricular diastolic function is grade II diastolic dysfunction. 6. E/e' 17 is elevated. 7. Global longitudinal strain is abnormal at -14.1%. 8. Left atrial chamber dimension is moderately enlarged. 9. There is mild aortic valve sclerosis. 10. There is mild mitral valve regurgitation. 11. There is mild tricuspid valve regurgitation. 12. No pulmonary hypertension, estimated pulmonary arterial systolic pressure is 28 mmHg. Left Ventricle E/e' 17 is elevated. Global longitudinal strain is abnormal at -14.1%. Left ventricular chamber dimension is severely enlarged. Left ventricular systolic function is moderately globally reduced, estimated at 40-45%. There is mild concentric increased left ventricular wall thickness. The left ventricular diastolic function is grade II diastolic dysfunction. Right Ventricle Right ventricular systolic function is normal and with normal TAPSE 2.0 cm. Right ventricular chamber dimension is normal. Left Atria Left atrial chamber dimension is moderately enlarged. Right Atria Right atrial chamber dimension is normal. Aortic Valve The aortic valve is trileaflet. There is mild aortic valve sclerosis. There is no aortic valve stenosis. There is no aortic valve regurgitation. Pulmonic Valve There is no pulmonic regurgitation. Mitral Valve There is no mitral valve stenosis. There is mild mitral valve regurgitation. Tricuspid Valve There is mild tricuspid valve regurgitation. No pulmonary hypertension, estimated pulmonary arterial systolic pressure is 28 mmHg. Pericardium/Pleural There is no pericardial effusion. Inferior Vena Cava Normal inferior vena cava with >50% collapse upon inspiration consistent with normal right atrial pressure, 5 mmHg. Aorta The aortic root size at the sinus of Valsalva is normal. Left Ventricular Outflow Tract Name Value Normal LVOT 2D LVOT Diameter 2.0 cm LVOT Doppler LVOT Peak Gradient 6 mmHg LVOT Mean Gradient 4 mmHg LVOT VTI 31 cm LVOT VTI/AV VTI Ratio 0.7 LVOT Stroke Volume 95 ml LVOT CO 16.9 l/min LVOT CI 9.1 l/min/m2 Pulmonic Valve Name Value Normal PV Doppler PV Peak Gradient 3 mmHg Mitral Valve Name Value Normal MV Doppler MV Decel Tripp 423 cm/s2 MV PHT 70 ms MV Area (PHT) 3.1 cm2 4.0-5.0 MV Diastolic Function MV E Peak Velocity 102 cm/s MV A Peak Velocity 95 cm/s MV E/A 1.1 MV Decel Time 241 ms MV Annular TDI MV E/e' (Septal) 18.7 <=8.0 MV E/e' (Lateral) 16.8 <=8.0 MV E/e' (Average) 17.7 Tricuspid Valve Name Value Normal TV Regurgitation Doppler TR Peak Velocity 239 cm/s TR Peak Gradient 23 mmHg Estimated PAP/RSVP RA Pressure 5 mmHg <=5 PA Systolic Pressure 28 mmHg <36 RV Systolic Pressure 28 mmHg <36 Aorta Name Value Normal Ascending Aorta Ao Root Diameter (MM) 3.6 cm Ao Root Diam Index (MM) 1.9 cm/m2 Aortic Valve Name Value Normal AV Doppler AV Peak Velocity 191 cm/s AV Peak Gradient 15 mmHg AV Mean Gradient 7 mmHg AV VTI 43 cm AV Area (Cont Eq VTI) 2.2 cm2 >=3.0 AV Area (Cont Eq Syed) 2.1 cm2 AV Regurgitation 2D LVOT Area 3.1 cm2 Ventricles Name Value Normal LV Dimensions 2D/MM IVS Diastolic Thickness (2D) 1.1 cm 0.6-1.0 LVID Diastole (2D) 5.7 cm 4.2-5.8 LVIW Diastolic Thickness (2D) 1.2 cm 0.6-1.0 LVID Systole (2D) 4.4 cm 2.5-4.0 LVOT Diameter 2.0 cm LV Mass (2D Cubed) 273.05 g 88.00-224.00 LV Mass Index (2D Cubed) 147 g/m2 49-115 Relative Wall Thickness (2D) 0.42 LV Fractional Shortening/Ejection Fraction 2D/MM LV Fractional Shortening (2D) 22 % 25-43 LV EF (2D Teicholz) 44 % 52-72 LV Diastolic Volume (4C MOD) 197 ml LV EF (4C MOD) 53 % LV Diastolic Volume (2C MOD) 160 ml LV EF (2C MOD) 43 % LV Diastolic Volume (BP MOD) 181 ml 62-150 LV Diastolic Volume Index (BP MOD) 97 ml/m2 34-74 LV Systolic Volume (BP MOD) 98 ml 21-61 LV Systolic Volume Index (BP MOD) 52 ml/m2 11-31 LV EF (BP MOD) 46 % 52-72 LV Diastolic Length (4C) 9.1 cm LV Systolic Length (4C) 7.4 cm LV Stroke Volume (4C MOD) 105 ml Atria Name Value Normal LA Dimensions LA Dimension (MM) 4.2 cm 3.0-4.1 LA Volume (4C A-L) 96 ml LA Volume (BP A-L) 83 ml RA Dimensions RA Area (4C) 16.6 cm2 <=18.0 EchoPAC Name Value Normal AutoEF LVCO_BiP_Q (Yrds7SZE) 3.8 l/min LVEF_BiP_Q (Wvbt5DAG) 42 % LVSV_BiP_Q (Txhf5XFP) 67 ml LVVED_BiP_Q (Tfmn0GWJ) 160 ml LVVES_BiP_Q (Navb3UHP) 93 ml HR_4Ch_Q (Lhkm0SHQ) 56 bpm LVCO_4Ch_Q (Ynxa2QBU) 3.6 l/min LVEF_4Ch_Q (Jjfp7PTP) 44 % LVLd_4Ch_Q (Ifgf2QKR) 8.7 cm LVLs_4Ch_Q (Uwoi3ZTF) 7.9 cm LVSV_4Ch_Q (Qrbw6XKA) 63 ml LVVED_4Ch_Q (Crhe4VXE) 145 ml LVVES_4Ch_Q (Somw3EUE) 82 ml HR_2Ch_Q (Jdtj6LAA) 61 bpm LVCO_2Ch_Q (Hoxi9FKG) 4.0 l/min LVEF_2Ch_Q (Lrjm4FZQ) 37 % LVLd_2Ch_Q (Stgv3SPA) 9.2 cm LVLs_2Ch_Q (Xmqn8QDJ) 8.1 cm LVSV_2Ch_Q (Gglm8TLP) 65 ml LVVED_2Ch_Q (Jvxi7VXC) 174 ml LVVES_2Ch_Q (Hmps8XRN) 109 ml MAYKEL AA peak sys SL (AWMA) 15.2 % AAS peak sys SL (AWMA) 19.8 % AI peak sys SL (AWMA) 27.7 % AL peak sys SL (AWMA) 5.8 % AP peak sys SL (AWMA) 20.2 % peak sys SL (AWMA) 21.9 % AVC (AWMA) 413 ms BA peak sys SL (AWMA) 8.8 % BAS peak sys SL (AWMA) 9.6 % BI peak sys SL (AWMA) 7.7 % BL peak sys SL (AWMA) 14.6 % BP peak sys SL (AWMA) 11.6 % BS peak sys SL (AWMA) 6.1 % G peak SL(A2C) (AWMA) 13.6 % G peak SL(A4C) (AWMA) 13.2 % G peak SL(APLAX) (AWMA) 15.5 % G peak SL(Avg) (AWMA) 14.1 % MA peak sys SL (AWMA) 7.5 % MAS peak sys SL (AWMA) 16.9 % AR peak sys SL (AWMA) 14.3 % ML peak sys SL (AWMA) 13.7 % MP peak sys SL (AWMA) 17.1 % MS peak sys SL (AWMA) 21.1 % Report Signatures
== END 2024-08-21 07:50 | disposition home or self-care (01) ==
PROVIDERS: PCP Family Medicine; Visit Provider Internal Medicine Cardiovascular Disease
DX: I51.9 Heart disease, unspecified (principal); I34.0 Nonrheumatic mitral (valve) insufficiency; I36.1 Nonrheumatic tricuspid (valve) insufficiency
CPT/HCPCS: 93306

== ENCOUNTER 2024-09-30 11:27 | Outpatient (CLI) | payer MEDICARE, SELFPAY ==
--- NOTE | ~2024-09-30 | XR_ITS ---
Clinical Indication: Wheezing, emphysema PA and lateral views of the chest: Comparison: 06/05/2024 Findings: Small bilateral pleural effusions are present. There is bibasilar alveolar and interstitial disease. Cardiomediastinal silhouette is within normal limits. Bones and soft tissues are unremarka ble. Impression: Moderate bibasilar pulmonary edema with small bilateral pleural effusions. Correlate for underlying C OPD or chronic interstitial disease. Reviewed, dictated and finalized at location M. Impression: Moderate bibasilar pulmonary edema with small bilateral pleural effusions. Ramon elate for underlying COPD or chronic interstitial disease.
--- OUTSIDE RECORDS SUMMARY | 2024-09-30 12:48 | XMS_ITS | Clinical Summary ---
Author Organization [facility] Address [address] [place] [address] Care Team Providers Care Railroad Track Inspector Name Role Phone Dannie Burroughs MD Primary Care Provider [phone] Source Comments [facility],non-owned Affiliates and Associated Physician Practices is amultiple site organization consisting of ambulatory clinics and hospital sitesin [place], [place], [place] and [place]. This disclosure is being madepursuant to the Care Everywhere program and may not contain all information available regarding this patient. 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 Gender Identity Not on file Sexual Orientation [...] VACCINE ( - 2023-2 5 season) 2024 DEPRESSION SCREENING 06/18/2024 MEDICARE AWV CALENDAR YEAR 2024 INFLUENZA VACCINE (Season Ended) 2025 06/24/2018, 07/01/2013 Respiratory Syncytial Virus (RSV) Vaccine Pt: or [...] complete this topic MENINGOCOCCAL (Group B) VACCINE SHARED DECISION-MAKING Aged Out No longer eligible based on patient's age to complete this topic MENINGOCOCCAL GROUPS A/C/Y/W VACCINE Aged Out No longer eligible b ased on patient's age to complete this topic Insurance [place] [id number] [employer] MEDICARE ADV SELF PAY NO INSURANCE Member Subscriber Plan / Payer (Ef fective for All Dates) Name:Joycelyn Cuello Member ID:Not on file Relation to Subscriber:Not on file Name:JOYCELYN CUELLO Subscriber ID:Not on file (Home) Address: [address] [place] [address] [place] [id number] Payer ID:Not on file Group ID:Not on file Type:Self Pay Address: [place], [place] [address] Care Teams Railroad Track Inspector Relationship Specialty Start Date End Date Dannie Burroughs MD [address] [place] [address] PCP - General 01/18/09
--- OUTSIDE RECORDS SUMMARY | 2024-09-30 12:48 | XMS_ITS | Clinical Summary ---
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 Gender Identity Not on file Sexual Orientation Not on file Obstetrics History Last Filed Vital Signs Vital Sign Reading Time Taken Comments Blood Pressure 137/79 08/27/2019 9:45 AM CDT Pulse 69 08/27/2019 9:45 AM CDT Temperature 36.8 C (98.2 F) 08/27/2019 9:45 AM CDT Respiratory Rate - - Oxygen Saturation 94% 05/01/2018 12:00 PM HEARING THERAPY DIRECTOR Inhaled Oxygen Concentration - - Weight 90.7 kg (200 lb) 08/27/2019 9:45 AM CDT Height 170.2 cm (5' 7 ) 08/27/2019 9:45 AM CDT Body Mass Index 31.32 08/27/2019 9:45 AM CDT Plan of Treatment Not on file Insurance [employer] MEDICARE [place] [address] [place] [address] A[employer] MEDICARE GOLD Care Teams Program Specialist Relationship Specialty Start Date End Date Dannie Burroughs MD PCP - General 06/23/11
--- OUTSIDE RECORDS SUMMARY | 2024-09-30 12:48 | XMS_ITS | Encounter Summary ---
Author Organization 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 Historical Provider Final Res ult * PROCEDURE - RESULT (04/22/2018 12:00 AM NATURAL SCIENCES DEPARTMENT CHAIR) Narrative 04/22/2018 12:00 AM NATURAL SCIENCES DEPARTMENT CHAIR Ordered by an unspecified provider. Historical Provider Final Res ult documented in this encounter Visit Diagnoses Not on filedocumented in this encounter Care Teams Res Counselor Relationship Specialty Start Date End Date Dannie Burroughs MD PCP - General 06/23/11 documented as of this encounter
--- OUTSIDE RECORDS SUMMARY | 2024-09-30 12:48 | XMS_ITS | Encounter Summary ---
Author Organization [facility] Facility Care Team Providers Care Steam Cleaning Machine Operator Name Role Phone Dannie Burroughs MD Primary Care Provider [phone] Encounter Details Date Type Department Care Team (Latest Contact Info) Description 04/08/2018 Orders Only [facility] CLINCONV ProviderSancho MD [address] [place] [address] Social History Tobacco Use Types Packs/Day Years Used Date Smoking Tobacco: Former Alcohol Use Standard Drinks/Week Comments No 0 (1 standard drink = 0.6 oz pur e alcohol) Sex and Gender Information Value Date Recorded Sex Assigned at Not on file 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
--- OUTSIDE RECORDS SUMMARY | 2024-09-30 12:48 | XMS_ITS | Encounter Summary ---
Author Organization [facility] Facility Care Team Providers Care Grinder Watch Parts Name Role Phone Dannie Burroughs MD Primary Care Provider [phone] Encounter Details Date Type Department Care Team (Latest Contact Info) Description 04/12/2018 Orders Only [facility] CLINCONV ProviderSancho MD [address] [place] [address] Social History Tobacco Use Types Packs/Day Years Used Date Smoking Tobacco: Former Alcohol Use Standard Drinks/Week Comments No 0 (1 standard drink = 0.6 oz pur e alcohol) Sex and Gender Information Value Date Recorded Sex Assigned at Not on file 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
--- OUTSIDE RECORDS SUMMARY | 2024-09-30 12:48 | XMS_ITS | Encounter Summary ---
Author Organization [facility] Address [address] [place] [address] Care Team Providers Care Impregnating Helper Name Role Phone Dannie Burroughs MD Primary Care Provider [phone] Encounter Details Date Type Department Care Team (Late st Contact Info) Description 04/10/[address] 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 DermPath Lab Received: 04/10/2019 01:05 PM Pathologist: Chidi Camara MD Specimens: A) - Skin, left back B) - Skin, left front C) - Skin, right eyelid 2:50 PM [facility] DERMATOPATHOLOGY LABORATORY Final Diagnosis Specimen A. SKIN, left back: SEBORRHEIC KERATOSIS (L82.1) PRESENT AT MARGIN Specimen B. SKIN, left front: SEBORRHEIC KERATOSIS, IRRITATED AND INFLAMED (L82.0) NOT PRESENT AT SAMPLED MARGIN Specimen C. 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 Check margins. 2:50 PM [facility] DERMATOPATHOLOGY LABORATORY Gross Description Specimen A: Received is one formalin filled container labeled with the patient's name and designated left back. The specimen consists of a shave biopsy (2 pieces) measuring [id number] & 6x4x2. The margins are inked green. Jar 0. Specimen B: Received is one formalin filled container labeled with the patient's name and designated left front. The specimen consists of a shave biopsy measuring [id number], bisected. The margin is inked green. Jar 0. Specimen C: Received is one formalin filled container labeled with the patient's name and designated right eyelid. The specimen consists of a shave biopsy (2 pieces) measuring [id number] & [id number]. The margins are inked green. Jar 0. 2:50 PM [facility] DERMATOPATHOLOGY LABORATORY Microscopic Description Specimen A. SKIN, [...] the margin of the specimen. 2:50 PM [facility] DERMATOPATHOLOGY LABORATORY Disclaimer An external and internal positive and negative controls are appropriate for the histochemical, immunohistochemical and immunofluorescence stain(s) in this case (if any), except where stated explicitly. The performance characteristics of the stain(s) cited in this report were developed and its performance characteristic determined by the Dermatopathology Laboratory at [facility], directed by Dr. Van Camara. These tests need not be, and therefore are not, approved by the [place] Food and Drug Administration. The tests are used for clinical purposes. Billing Codes Specimen Charges Stain Charges 36994 00014 36672 1 1 1 9 2:50 PM CDT DERMATOPATHOLOGY LABORATORY Embedded Images 9 2:50 PM CDT DERMATOPATHOLOGY LABORATORY Pathology/Cytology TISSUE SPECIMEN FROM SKIN / Unknown 04/08/2019 04/10/2019 1:05 PM CDT Miscellaneous samples (specimen) TISSUE SPECIMEN FROM SKIN / Unknown 04/08/2019 04/10/2019 1:05 PM CDT Miscellaneous samples (specimen) TISSUE SPECIMEN FROM SKIN / Unknown 04/08/2019 04/10/2019 1:05 PM CDT Dannie Burroughs MD LAB [facility] Final Result DERMATOPATHOLOGY LABORATORY [facility] - Department of Dermatology [address] [phone] documented in this encounter Visit Diagnoses Not on filedocumented in this encounter Care Teams Impregnating Helper Relationship Specialty Start Date End Date Dannie Burroughs MD [address] [place] [address] PCP - General 01/18/09 documented as of this encounter
--- OUTSIDE RECORDS SUMMARY | 2024-09-30 12:48 | XMS_ITS | Referral Summary ---
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 Gender Identity Not on file Sexual Orientation Not on file Last Filed Vital Signs Vital Sign Reading Time Taken Comments Blood Pressure 137/79 08/27/2019 9:45 AM CDT Pulse 69 08/27/2019 9:45 AM CDT Temperature 36.8 C (98.2 F) 08/27/2019 9:45 AM CDT Respiratory Rate - - Oxygen Saturation 94% 05/01/2018 12:00 PM PATIENT ACCOUNTS CLERK Inhaled Oxygen Concentration - - Weight 90.7 kg (200 lb) 08/27/2019 9:45 AM CDT Height 170.2 cm (5' 7 ) 08/27/2019 9:45 AM CDT Body Mass Index 31.32 08/27/2019 9:45 AM CDT Plan of Treatment Not on file Insurance [employer] MEDICARE GOLD AETNA MEDICARE GOLD Care Teams Fitter Placer Relationship Specialty Start Date End Date Dannie Burroughs MD PCP - General 06/23/11
== END 2024-09-30 11:28 | disposition home or self-care (01) ==
PROVIDERS: PCP Family Medicine; Visit Provider Nurse Practitioner Family
DX: R06.2 Wheezing (principal); J43.9 Emphysema, unspecified
CPT/HCPCS: 71046

== ENCOUNTER 2024-10-09 10:04 | Inpatient (IN) | payer MEDICARE, SELFPAY ==
[2024-10-09] VITALS (29 sets, daily range): BP systolic 122–167; BP diastolic 56–107; PULSE 50–77; RESP 17–40; TEMP 36.3–36.8; O2SAT 92–100; BMI 30.2
--- NOTE | ~2024-10-09 | US_ITS ---
EXAMINATION: US venous doppler [facility] DATE: 10/10/2024 08:44 INDICATION: Edema TECHNIQUE: Grayscale ultrasound images without and with compression and Doppler ultrasound images of the bilateral lower extremity veins were obtained. COMPARISON: None. FINDINGS: The visualized portions of right common femoral vein, profunda (deep) femoral vein, femoral vein, pop liteal vein, peroneal veins, posterior tibial veins, and greater saphenous vein outflow are patent. The visualized portions of left common femoral vein, profunda femoral vein, femoral vein, popliteal v ein, peroneal veins, posterior tibial veins, and greater saphenous vein outflow are patent. IMPRESSION: 1. No deep venous thrombosis. Reviewed, dictated and finalized at location A.
--- NOTE | ~2024-10-09 | XR_ITS ---
XR chest 1V portable Ordering provider: Robin Golden MD History: 74 years Male with . SHORTNESS OF BREATH . Comparison: September 30, 2024 FINDINGS: MEDIASTINUM: The cardiac silhouette is moderately enlarged. Congestive joann. LUNGS: No pneumothorax. Bilateral interstitial thickening suggestive of edema. Superimposed pneumonit is is not excluded. Bibasilar atelectasis versus pneumonia with pleural effusion more on the right si de. Deviation of the trachea to the left with possible vascular indentation versus retrosternal thyroid. OTHER: No free air under the diaphragm. Degenerative changes of the spine. IMPRESSION: Bibasilar atelectasis versus pneumonia with pleural effusion more on the right side. Cardiomegaly with cardiac decompensation and pulmonary edema. Reviewed, dictated and finalized at location A.
--- NOTE | 2024-10-09 10:08 | ECG_ITS ---
Test Date: 2024-10-09 10:05:55 Measurements Intervals [place] Rate: 78 P: 36 [place]: 143 QRS: 2 QRSD: 103 T: 25 QT: 417 QTc: 475 Interpretive Statements SINUS RHYTHM [address]-T WAVE ABNORMALITY IN LATERAL LEADS- CONSIDER ISCHEMIA BASELINE ARTIFACT- I, II, III, AVR, AVF, V1-V6 ABNORMAL ECG Compared to ECG 05/11/2024 19:25:02 POSSIBLE ISCHEMIA NOW PRESENT Electronically Signed On 10-09-2024 11:53:31 CDT by Hunter Shah D.O.
--- NOTE | 2024-10-09 10:09 | ED_ITS ---
HPI - SOB/Dyspnea General Chief Complaint: Shortness of Breath/Dyspnea Stated Complaint: SOB, Low PO, on CPAP Time Seen by Provider: 10/09/24 10:06 Source: patient and EMS Mode of arrival: EMS History of Present Illness HPI Narrative: 74 YEARS OLD WHITE MALE CAME TO THE ED FROM HOME BY AMBULANCE COMPLAINING OF SUDDEN ONSET OF SHORTNESS OF BREATH WITHIN 2 HOUR PRIOR TO ARRIVAL, OXYGENATION ON ROOM AIR WAS AROUND 70%, PATIENT WAS NOT ABLE TO FINISH 1 SENTENCE, PATIENT WAS PLACED ON CPAP PRIOR TO ARRIVAL, RECEIVED DECADRON, MAGNESIUM, SATURATION ON BIPAP ON ARRIVAL TO THE ED WAS 94%, PATIENT DENIES ANY FEVER OR CHILLS, HISTORY OF CHF AND COPD UNABLE TO GET MORE DETAILS FROM THE PATIENT BECAUSE OF THE CPAP Related Data Home Medications ?Medication ?Instructions ?Recorded ?Confirmed ?Last Taken ?Type aspirin 81 mg tablet,delayed 81 mg PO DAILY 02/02/23 09/29/24 Unknown History release (Adult Low Dose Aspirin) amlodipine 10 mg tablet 10 mg PO DAILY 05/11/24 09/29/24 Unknown History Allergies Allergy/AdvReac Type Severity Reaction Status Date / Time penicillin G Allergy Mild Unknown Verified 10/09/24 14:14 codeine Allergy Unknown Unknown Verified 10/09/24 14:14 Penicillins Allergy Unknown Unknown Verified 10/09/24 14:14 latex Allergy Unknown Verified 10/09/24 14:14 Review of Systems 2 Review of Systems: ROS unobtainable: Yes unobtainable due to medical condition PMFSH Past Medical History Medical History Hypothyroidism, unspecified Diabetes mellitus Type 2 diabetes mellitus Hypothyroidism Arthritis Gout Tobacco dependence Obstructive sleep apnea Peripheral vascular disease Hypertension Chronic obstructive pulmonary disease Hyperlipidemia Carotid stenosis Surgical History Surgical History History of carotid endarterectomy History of cholecystectomy History of cardiac catheterization History of revascularization procedure of lower extremity Family History Family History Father Hypertension Cerebrovascular accident Grandparent Family history of malignant neoplasm Diabetes mellitus Sibling Family history of diabetes mellitus in first degree relative Diabetes mellitus Mother Hyperlipidemia Social History Social History Social History: Surrogate medical decision maker: Brooks Morrissey, son ([phone]) and Kira Morrissey, spouse ([phone]). Code status: Full code. Smoking packs per day: 1 Smoking cigarettes per day: 20.0 Years smoked: 30 Smoking pack-years: 30.00 Smoking status: Former smoker Tobacco type: cigarettes Second hand tobacco smoke exposure: Yes Alcohol intake: never Substance use: current Substance use type: marijuana Other substance usage details: smoking and edibles Do You Feel Safe in your Home?: Yes Lack of Transportation: No Lack of Food: Never True Current Housing: I Have Housing Concerned About Future Housing: No Difficulty Paying Gas/Electric Bills: No Difficulty Paying for Meds: No Currently Unemployed: No Education: High School Diploma/GED Difficulty w/ Childcare or Family Care: No Living arrangements: with family Occupation/Education: retired Spiritual care concerns: Yes Exam 2 Narrative: GENERAL APPEARANCE: WELL-DEVELOPED, WELL-NOURISHED ON CPAP SKIN: PALE AND CLAMMY, 2+ EDEMA LOWER EXTREMITY BILATERALLY HEAD: NORMOCEPHALIC, NONTRAUMATIC EYES: CLEAR CONJUNCTIVA ENT: OROPHARYNX NORMAL, EARS NORMAL, NOSE NORMAL NECK: SUPPLE, NONTENDER CHEST AND RESPIRATORY: DIMINUTION OF AIR ENTRY BILATERALLY, BASILAR RALES BILATERALLY HEART: REGULAR RATE/RHYTHM ABDOMEN: SOFT, NONTENDER, NO ORGANOMEGALY, QUIET BOWEL SOUNDS VASCULAR: NORMAL PERIPHERAL PULSES, NORMAL CAPILLARY REFILL. MUSCULOSKELETAL: NORMAL RANGE OF MOTION, NONTENDER BACK NEUROLOGIC: ALERT, ON CPAP Course Vital Signs Vital signs: Vital Signs Temperature 36.3 C L 10/09/24 10:03 Pulse Rate 77 10/09/24 10:03 Respiratory Rate 40 H 10/09/24 10:03 Blood Pressure 148/107 H 10/09/24 10:03 Pulse Oximetry 96 10/09/24 10:03 Oxygen Delivery CPAP 10/09/24 10:03 Temperature 36.3 C L 10/09/24 10:03 Pulse Rate 60 10/09/24 11:31 Respiratory Rate 22 H 10/09/24 11:31 Blood Pressure 138/58 L 10/09/24 11:30 Pulse Oximetry 95 10/09/24 11:31 Oxygen Delivery BiPAP 10/09/24 11:31 MDM - SOB/Dyspnea MDM Narrative Medical decision making narrative: PATIENT CAME TO THE ED WITH SUDDEN ONSET OF SHORTNESS OF BREATH WITHIN 2 HOURS PRIOR TO ARRIVAL VITAL SIGNS SHOWING BLOOD PRESSURE 148/107, RESPIRATORY RATE 40, TEMPERATURE 36.3? SATURATION 96% ON CPAP PHYSICAL EXAMINATION SHOWING A PATIENT ON CPAP, PALE, CLAMMY, TROUBLE TALKING DIFFERENTIAL DIAGNOSIS INCLUDE CHF, COPD EXACERBATION, PNEUMONIA, CORONARY ARTERY DISEASE. BLOOD WORKUP TODAY INCLUDES CBC AND CMP,, PROBNP, COAGS, TROPONIN SHOWED WBC 16.3, HEMOGLOBIN 9.9, CREATININE 1.6, BUN 34, TROPONIN 0.799, PROBNP 8820 CHEST X-RAY SHOWED ATELECTASIS VERSUS PNEUMONIA WITH PLEURAL EFFUSION MORE ON THE RIGHT SIDE, CARDIOMEGALY, PULMONARY EDEMA DIAGNOSIS PNEUMONIA, CHF, ELEVATED TROPONIN PROBABLY SECONDARY TO DEMAND ISCHEMIA ADMIT TO HOSPITALIST Differential Diagnosis Differential diagnosis: Likely acute exacerbation of chronic obstructive airways disease, congestive heart failure and community acquired pneumonia Lab Data 10/09/24 10:18 10/09/24 10:18 Labs: Lab Results 10/09/24 10/09/24 10/09/24 Range/Units 10:18 10:22 11:44 WBC 16.3 H (4.5-10.0) K/mm3 RBC 3.96 L (4.6-6.20) M/mm3 Hgb 9.9 L (14.0-18.0) g/dL Hct 33.7 L (42.0-52.0) % MCV 85.1 (80-100) fl MCH 25.0 L (26-34) pg MCHC 29.4 L (32-36) g/dl RDW 19.2 H (11.5-14.5) % Plt Count 304 (150-375) k/mm3 MPV 9.5 (7.4-10.4) fl Immature Gran % (Auto) 0.6 H (0-0.5) % Neut % (Auto) 81.4 H (45.5-73.1) % Lymph % (Auto) 10.0 L (18.3-44.2) % [place] % (Auto) 6.0 (2.6-8.5) % Eos % (Auto) 1.6 (0-4.4) % Baso % (Auto) 0.4 (0.2-1.2) % Lymph # (Auto) 1.63 (0.9-3.2) K/mm3 [place] # (Auto) 1.0 H (0.1-0.6) K/mm3 Eos # (Auto) 0.3 (0-0.3) K/mm3 Baso # (Auto) 0.1 (0.0-0.1) K/mm3 Abs Immat Gran (auto) 0.10 H (0.00-0.031) K/mm3 Absolute Neuts (auto) 13.2 H (1.3-6.7) K/mm3 Absolute Nucleated RBC 0.000 (0.0-0.012) K/mm3 Band Neutrophils % Not Reportable Nucleated RBC % 0.0 (0.0-0.2) % Platelet Estimate Adequate (Adequate) Hypochromasia 1+ Anisocytosis 1+ Schistocytes None seen PT 14.4 (11.1-14.7) Seconds INR 1.1 APTT 34.9 (22.3-36.8) Seconds Expiratory Pressure 6 6 cmH2O Inspiratory Pressure 12 12 cmH2O Sodium 144 (137-145) mmol/L Potassium 4.0 (3.4-5.0) mmol/L Chloride 109 H (98-107) mmol/L Carbon Dioxide 24 (22-30) mmol/L Anion Gap 11 (4-12) mmol/L BUN 34 H D (9-20) mg/dL Creatinine 1.66 H (0.7-1.3) mg/dL Estim Creat Clear Calc 40 ml/min Estimated GFR 41 L (59 - ) Glucose 183 H (65-110) mg/dL Lactic Acid (0.7-2.0) mmol/L Calcium 8.6 (8.4-10.2) mg/dL Magnesium 2.3 (1.6-2.3) mg/dL Total Bilirubin 0.4 (0.2-1.3) mg/dL AST 65 H (17-59) U/L ALT 83 H (6-50) U/L Alkaline Phosphatase 269 H (38-126) U/L Troponin I 0.799 H* (0.000-0.034) ng/mL NT-Pro-B Natriuret Pep 8820 H (19.9-100) pg/mL Total Protein 7.0 (6.3-8.2) g/dL Albumin 3.9 (3.5-5.1) g/dL 04/24/25 Range/Units 11:45 WBC (4.5-10.0) K/mm3 RBC (4.6-6.20) M/mm3 Hgb (14.0-18.0) g/dL Hct (42.0-52.0) % MCV (80-100) fl MCH (26-34) pg MCHC (32-36) g/dl RDW (11.5-14.5) % Plt Count (150-375) k/mm3 MPV (7.4-10.4) fl Immature Gran % (Auto) (0-0.5) % Neut % (Auto) (45.5-73.1) % Lymph % (Auto) (18.3-44.2) % [place] % (Auto) (2.6-8.5) % Eos % (Auto) (0-4.4) % Baso % (Auto) (0.2-1.2) % Lymph # (Auto) (0.9-3.2) K/mm3 [place] # (Auto) (0.1-0.6) K/mm3 Eos # (Auto) (0-0.3) K/mm3 Baso # (Auto) (0.0-0.1) K/mm3 Abs Immat Gran (auto) (0.00-0.031) K/mm3 Absolute Neuts (auto) (1.3-6.7) K/mm3 Absolute Nucleated RBC (0.0-0.012) K/mm3 Band Neutrophils % Nucleated RBC % (0.0-0.2) % Platelet Estimate (Adequate) Hypochromasia Anisocytosis Schistocytes PT (11.1-14.7) Seconds INR APTT (22.3-36.8) Seconds Expiratory Pressure cmH2O Inspiratory Pressure cmH2O Sodium (137-145) mmol/L Potassium (3.4-5.0) mmol/L Chloride (98-107) mmol/L Carbon Dioxide (22-30) mmol/L Anion Gap (4-12) mmol/L BUN (9-20) mg/dL Creatinine (0.7-1.3) mg/dL Estim Creat Clear Calc ml/min Estimated GFR (59 - ) Glucose (65-110) mg/dL Lactic Acid 0.7 (0.7-2.0) mmol/L Calcium (8.4-10.2) mg/dL Magnesium (1.6-2.3) mg/dL Total Bilirubin (0.2-1.3) mg/dL AST (17-59) U/L ALT (6-50) U/L Alkaline Phosphatase (38-126) U/L Troponin I (0.000-0.034) ng/mL NT-Pro-B Natriuret Pep (19.9-100) pg/mL Total Protein (6.3-8.2) g/dL Albumin (3.5-5.1) g/dL ABG Data ABG results: 10/09/24 10/09/24 10:22 11:44 Puncture Site Right radial Right radial ABG pH 7.232 L* 7.301 L ABG pCO2 47.8 H 45.7 H ABG pO2 104.5 H 59.2 L ABG PO2/FiO2 Ratio 1.74 1.69 ABG HCO3 19.7 L 22.0 ABG O2 Saturation 96.8 88.0 L ABG O2 Content 13.9 L 11.9 L ABG Base Excess -7.6 -4.2 A-a Gradient 270.7 137.2 Oxyhemoglobin 96.0 87.2 L* Total Hemoglobin 10.2 L 9.7 L O2 Delivery Device Bipap Bipap O2 Liters/Min Not Reportable Not Reportable FiO2 60 35 Discharge Plan Discharge Clinical Impression: Pneumonia, CHF (congestive heart failure) Patient Disposition: Still a Patient Condition: Improved Patient Language: Slovenian Prescriptions: No Action aspirin [Adult Low Dose Aspirin] 81 mg Tablet,Delayed Release (Dr/Ec) 81 mg PO DAILY hydrochlorothiazide 25 mg tablet 25 mg PO DAILY Qty: 90 1RF Synjardy 12.5-1,000 mg tablet 1 tablet PO BID Qty: 180 1RF Breztri Aerosphere 160-9-4.8 mcg/actuation HFA aerosol inhaler 2 inh inhalation BID Qty: 10.7 2RF levothyroxine 75 mcg tablet 75 mcg PO DAILY Qty: 90 1RF albuterol sulfate 90 mcg/actuation HFA aerosol inhaler 1 inh INHALATION QID PRN (Reason: SOB/Wheezing) Qty: 8.5 4RF albuterol sulfate 2.5 mg /3 mL (0.083 %) solution for nebulization 2.5 mg inhalation Q4-6H PRN (Reason: shortness of breath or wheezing) Qty: 75 2RF prednisone 10 mg tablet 30 mg PO DAILY Qty: 15 0RF azithromycin 250 mg tablet See Rx Instructions PO .COMPLEX Qty: 6 0RF Rx Instructions: take 500 mg today (day 1), then 250 mg for 4 days (days 2-5) PO zolpidem 5 mg tablet 10 mg PO QHS Qty: 30 0RF amlodipine 10 mg tablet 10 mg PO DAILY (DME) OneTouch Ultra Test Strip See Rx Instructions .Route Qty: 100 1RF Rx Instructions: check glucose twice daily for diabetes (DME) blood-glucose meter [OneTouch Ultra2 Meter] Misc See Rx Instructions .Route Qty: 1 1RF Rx Instructions: check blood sugar twice daily for diabetes (DME) lancets Misc See Rx Instructions .Route Qty: 200 1RF Rx Instructions: check blood sugar twice daily for diabetes rosuvastatin 40 mg tablet 40 mg PO DAILY Qty: 90 1RF clopidogrel 75 mg tablet 75 mg PO DAILY Qty: 90 0RF sertraline 50 mg tablet 50 mg PO DAILY Qty: 90 0RF carvedilol 12.5 mg tablet 12.5 mg PO BID Qty: 60 5RF Follow-up/Referrals: Dannie Burroughs MD [Primary Care Provider] -
--- NOTE | 2024-10-09 10:20 | PC.NURSE ---
Respiratory at bedside for ABG draw
[2024-10-09] MEDS: FUROSEMIDE INJ 40 MG/4 ML VIAL IV PUSH ×3 (10:25→20:07)
[2024-10-09 10:26] LABS: Basophils Absolute Auto 0.1 K/mm3 (0.0-0.1); Basophils Percent Auto 0.4 % (0.2-1.2); Eosinophils Absolute Auto 0.3 K/mm3 (0-0.3); Eosinophils Percent Auto 1.6 % (0-4.4); Hematocrit 33.7 % (42.0-52.0); Hemoglobin 9.9 g/dL (14.0-18.0); Immature Granulocyte Percent A 0.6 % (0-0.5); Lymphocytes Absolute Auto 1.63 K/mm3 (0.9-3.2); Mean Corpuscular HGB Conc 29.4 g/dl (32-36); Mean Corpuscular Volume 85.1 fl (80-100); Mean Platelet Volume 9.5 fl (7.4-10.4); Neutrophils Absolute Auto 13.2 K/mm3 (1.3-6.7); Neutrophils Percent Auto 81.4 % (45.5-73.1); Platelet Count Result 304 k/mm3 (150-375); Red Blood Count 3.96 M/mm3 (4.6-6.20); Red Cell Distribution Width 19.2 % (11.5-14.5); White Blood Count 16.3 K/mm3 (4.5-10.0)
--- NOTE | 2024-10-09 10:26 | PC.NURSE ---
Radiology at bedside for chest Xray
[2024-10-09 10:35] LABS: Alveolar/Arterial O2 Gradient 270.7 mmHg; Base Excess ABG -7.6 mEq/l (+/-2.0); Fractional Inspired Oxygen 60 %; HCO3 ABG 19.7 mEq/l (22.0-26.0); Oxygen Content ABG 13.9 %vol (16.0-22.0); Oxygen Saturation ABG 96.8 % (95.0-100.0); PCO2 ABG 47.8 mmHg (35.0-45.0); PO2 ABG 104.5 mmHg (80.0-100.0); PO2 FiO2 Ratio Arterial Blood 1.74 %; Total Hemoglobin 10.2 g/dL (12.0-18.0)
[2024-10-09 10:37] LABS: Device BIPAP; Modified Allen's Test Pass; Site Drawn RIGHT RADIAL; pH ABG 7.232 (7.350-7.450)
[2024-10-09 10:38] LABS: Hypochromasia 1+; Platelet Estimate Adequate (Adequate)
[2024-10-09 10:38] LABS: Expiratory Pressure 6 cmH2O; Inspiratory Pressure 12 cmH2O
[2024-10-09 10:39] LABS: Alanine Aminotransferase 83 U/L (6-50); Albumin Level 3.9 g/dL (3.5-5.1); Alkaline Phosphatase 269 U/L (38-126); Anion Gap 11 mmol/L (4-12); Anisocytosis 1+; Aspartate Amino Transferase 65 U/L (17-59); Bilirubin,Total 0.4 mg/dL (0.2-1.3); Blood Urea Nitrogen 34 mg/dL (9-20); Calcium 8.6 mg/dL (8.4-10.2); Carbon Dioxide 24 mmol/L (22-30); Chloride 109 mmol/L (98-107); Estimated CRCL calculation 40 ml/min; Estimated Glomerular Filt Rate 41; Glucose 183 mg/dL (65-110); Magnesium 2.3 mg/dL (1.6-2.3); Schistocytes None Seen; Sodium 144 mmol/L (137-145)
[2024-10-09] MEDS: IPRATROPIUM 0.5 MG/ALBUTEROL SULFATE 2.5 MG AMPUL.NEB 3 ML INHALATION ×3 (10:39→10:45)
[2024-10-09 10:48] LABS: INR 1.1; Prothrombin Time 14.4 Seconds (11.1-14.7)
[2024-10-09 10:49] LABS: Partial Thromboplastin Time 34.9 Seconds (22.3-36.8)
[2024-10-09 10:53] LABS: NT Pro B Type Natriuretic Pept 8820 pg/mL (19.9-100); Troponin I 0.799 ng/mL (0.000-0.034)
--- NOTE | 2024-10-09 11:05 | PC.NURSE ---
Report given to HANH Hickey
--- OUTSIDE RECORDS SUMMARY | 2024-10-09 11:21 | XMS_ITS | Clinical Summary ---
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 Gender Identity Not on file Sexual Orientation Not on file Obstetrics History Last Filed Vital Signs Vital Sign Reading Time Taken Comments Blood Pressure 137/79 08/27/2019 9:45 AM CDT Pulse 69 08/27/2019 9:45 AM CDT Temperature 36.8 C (98.2 F) 08/27/2019 9:45 AM CDT Respiratory Rate - - Oxygen Saturation 94% 05/01/2018 12:00 PM RESILIENT TILE INSTALLER Inhaled Oxygen Concentration - - Weight 90.7 kg (200 lb) 08/27/2019 9:45 AM CDT Height 170.2 cm (5' 7 ) 08/27/2019 9:45 AM CDT Body Mass Index 31.32 08/27/2019 9:45 AM CDT Plan of Treatment Not on file Insurance [employer] [place] [address] [place] [address] [employer] MED[employer]ARE GOLD Care Teams Byproducts Operator Relationship Specialty Start Date End Date Dannie Burroughs MD PCP - General 06/23/11
--- OUTSIDE RECORDS SUMMARY | 2024-10-09 11:21 | XMS_ITS | Clinical Summary ---
Author Organization [facility] Address [address] [place] [address] Care Team Providers Care Logistics Vice President Name Role Phone Dannie Burroughs MD Primary Care Provider [phone] Source Comments [facility],non-owned Affiliates and Associated Physician Practices is amultiple site organization consisting of ambulatory clinics and hospital sitesin [place], [place], [place] and [place]. This disclosure is being madepursuant to the Care Everywhere program and may not contain all information available regarding this patient. 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 EXAMINER Gender Identity Not on file Sexual Orientation [...] to complete this topic Insurance [place] [id number] [employer] MEDICARE ADV SELF PAY NO INSURANCE Member Subscriber Plan / Payer (Ef fective for All Dates) Name:Joycelyn Cuello Member ID:Not on file Relation to Subscriber:Not on file Name:JOYCELYN CUELLO Subscriber ID:Not on file (Home) Address: [address] [place] [address] [place] [id number] Payer ID:Not on file Group ID:Not on file Type:Self Pay Address: [place], [place] [address] Care Teams Logistics Vice President Relationship Specialty Start Date End Date Dannie Burroughs MD [address] [place] [address] PCP - General 01/18/09
--- OUTSIDE RECORDS SUMMARY | 2024-10-09 11:21 | XMS_ITS | Referral Summary ---
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 Gender Identity Not on file Sexual Orientation Not on file Last Filed Vital Signs Vital Sign Reading Time Taken Comments Blood Pressure 137/79 08/27/2019 9:45 AM CDT Pulse 69 08/27/2019 9:45 AM CDT Temperature 36.8 C (98.2 F) 08/27/2019 9:45 AM CDT Respiratory Rate - - Oxygen Saturation 94% 05/01/2018 12:00 PM WIRE STEWARD Inhaled Oxygen Concentration - - Weight 90.7 kg (200 lb) 08/27/2019 9:45 AM CDT Height 170.2 cm (5' 7 ) 08/27/2019 9:45 AM CDT Body Mass Index 31.32 08/27/2019 9:45 AM CDT Plan of Treatment Not on file Insurance [employer] MEDICARE GOLD A[employer] MEDICARE GOLD Care Teams Slinger Sequins Relationship Specialty Start Date End Date Dannie Burroughs MD PCP - General 06/23/11
--- OUTSIDE RECORDS SUMMARY | 2024-10-09 11:21 | XMS_ITS | Encounter Summary ---
Author Organization [facility] Facility Care Team Providers Care Electric Razor Mechanic Name Role Phone Dannie Burroughs MD Primary Care Provider [phone] Encounter Details Date Type Department Care Team (Latest Contact Info) Description 04/12/2018 Orders Only [facility] CLINCONV ProviderSancho MD [address] [place] [address] Social History Tobacco Use Types Packs/Day Years Used Date Smoking Tobacco: Former Alcohol Use Standard Drinks/Week Comments No 0 (1 standard drink = 0.6 oz pur e alcohol) Sex and Gender Information Value Date Recorded Sex Assigned at Not on file 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
--- OUTSIDE RECORDS SUMMARY | 2024-10-09 11:21 | XMS_ITS | Encounter Summary ---
Author Organization [facility] Address [address] [place] [address] Care Team Providers Care Drop Count Associate Name Role Phone Dannie Burroughs MD Primary Care Provider [phone] Encounter Details Date Type Department Care Team (Late st Contact Info) Description 04/10/[address] 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 DermPath Lab Received: 04/10/2019 01:05 PM Pathologist: Chidi Camara MD Specimens: A) - Skin, left back B) - Skin, left front C) - Skin, right eyelid 2:50 PM [facility] DERMATOPATHOLOGY LABORATORY Final Diagnosis Specimen A. SKIN, left back: SEBORRHEIC KERATOSIS (L82.1) PRESENT AT MARGIN Specimen B. SKIN, left front: SEBORRHEIC KERATOSIS, IRRITATED AND INFLAMED (L82.0) NOT PRESENT AT SAMPLED MARGIN Specimen C. 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 Check margins. 2:50 PM [facility] DERMATOPATHOLOGY LABORATORY Gross Description Specimen A: Received is one formalin filled container labeled with the patient's name and designated left back. The specimen consists of a shave biopsy (2 pieces) measuring [id number] & [id number]. The margins are inked green. Jar 0. Specimen B: Received is one formalin filled container labeled with the patient's name and designated left front. The specimen consists of a shave biopsy measuring [id number], bisected. The margin is inked green. Jar 0. Specimen C: Received is one formalin filled container labeled with the patient's name and designated right eyelid. The specimen consists of a shave biopsy (2 pieces) measuring [id number] & [id number]. The margins are inked green. Jar 0. 2:50 PM [facility] DERMATOPATHOLOGY LABORATORY Microscopic Description Specimen A. SKIN, [...] the margin of the specimen. 2:50 PM [facility] DERMATOPATHOLOGY LABORATORY Disclaimer An external and internal positive and negative controls are appropriate for the histochemical, immunohistochemical and immunofluorescence stain(s) in this case (if any), except where stated explicitly. The performance characteristics of the stain(s) cited in this report were developed and its performance characteristic determined by the Dermatopathology Laboratory at [facility], directed by Dr. Van Camara. These tests need not be, and therefore are not, approved by the [place] Food and Drug Administration. The tests are used for clinical purposes. Billing Codes Specimen Charges Stain Charges 08877 77229 18390 1 1 1 9 2:50 PM CDT [...] Dannie Burroughs MD LAB - PATHOLOGY/CYTOLOGY [facility] Final Result DERMATOPATHOLOGY LABORATORY [facility] - Department of Dermatology [address] [phone] documented in this encounter Visit Diagnoses Not on filedocumented in this encounter Care Teams Drop Count Associate Relationship Specialty Start Date End Date Dannie Burroughs MD [address] [place] [address] PCP - General 01/18/09 documented as of this encounter
--- OUTSIDE RECORDS SUMMARY | 2024-10-09 11:21 | XMS_ITS | Encounter Summary ---
Author Organization [facility] Facility Care Team Providers Care Sorting Machine Attendant Name Role Phone Dannie Burroughs MD Primary Care Provider [phone] Encounter Details Date Type Department Care Team (Latest Contact Info) Description 04/08/2018 Orders Only [facility] CLINCONV ProviderSancho MD [address] [place] [address] Social History Tobacco Use Types Packs/Day Years Used Date Smoking Tobacco: Former Alcohol Use Standard Drinks/Week Comments No 0 (1 standard drink = 0.6 oz pur e alcohol) Sex and Gender Information Value Date Recorded Sex Assigned at Not on file 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
--- OUTSIDE RECORDS SUMMARY | 2024-10-09 11:21 | XMS_ITS | Encounter Summary ---
Author Organization [facility] Facility Care Team Providers Care Car Seat Coverer Name Role Phone Dannie Burroughs MD Primary Care Provider [phone] Encounter Details Date Type Department Care Team (Latest Contact Info) Description 04/29/2018 Orders Only [facility] CLINCONV ProviderSancho MD [address] [place] [address] Social History Tobacco Use Types Packs/Day Years Used Date Smoking Tobacco: Former Alcohol Use Standard Drinks/Week Comments No 0 (1 standard drink = 0.6 oz pur e alcohol) Sex and Gender Information Value Date Recorded Sex Assigned at Not on file Legal Sex Male 2:11 AM 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 Gender Identity Not on file Sexual Orientation Not on file documented as of this encounter Plan of Treatment Not on file documented as of this encounter Procedures Procedure Name Priority Date/Time Associated Diagnosis Comments SCAN - PATHOLOGY 04/30/2018 12:0 0 AM 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 SERVICE 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 PROCEDURE - RESULT 04/22/2018 12 :00 AM 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 SERVICE 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 documented in this encounter Results * SCAN - PATHOLOGY (04/30/2018 12:00 AM 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 SERVICE 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) Narrative 04/30/2018 12:00 AM 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 SERVICE 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 Ordered by an unspecified provider. Historical Provider Final Res ult * PROCEDURE - RESULT (04/22/2018 12:00 AM 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 SERVICE 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) Narrative 04/22/2018 12:00 AM 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 SERVICE 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 Ordered by an unspecified provider. Historical Provider Final Res ult documented in this encounter Visit Diagnoses Not on filedocumented in this encounter Care Teams Car Seat Coverer Relationship Specialty Start Date End Date Dannie Burroughs MD PCP - General 06/23/11 documented as of this encounter
[2024-10-09 11:53] LABS: Alveolar/Arterial O2 Gradient 137.2 mmHg; Base Excess ABG -4.2 mEq/l (+/-2.0); Fractional Inspired Oxygen 35 %; Oxygen Content ABG 11.9 %vol (16.0-22.0); PCO2 ABG 45.7 mmHg (35.0-45.0); PO2 ABG 59.2 mmHg (80.0-100.0); PO2 FiO2 Ratio Arterial Blood 1.69 %; Total Hemoglobin 9.7 g/dL (12.0-18.0); pH ABG 7.301 (7.350-7.450)
[2024-10-09 11:54] LABS: Modified Allen's Test Pass; Oxyhemoglobin 87.2 % THb (90.0-100.0); Site Drawn RIGHT RADIAL
[2024-10-09 11:55] LABS: Device BIPAP; Expiratory Pressure 6 cmH2O; Inspiratory Pressure 12 cmH2O
[2024-10-09 12:03] LABS: Lactic Acid Reflex 0.7 mmol/L (0.7-2.0)
[2024-10-09] MEDS: levoFLOXacin 750 MG/D5W 150 ML 750 MG/150 ML BAG 100 MG IVPB (12:34)
--- NOTE | 2024-10-09 13:56 | ADMGEN ---
This patient, Eladio Morrissey, was admitted to IMU Room 201-01 at 1342. Patient/family oriented to hospital policies and general routines including ID bracelet, bed and alarms, visiting hours, pain management, procedures, bathroom and other care routines, personal items, smoking policy, room service/diet, and visiting hours. Information on how to activate the Rapid Response Team has been discussed. Patient/Family are encouraged to report perceived risks to care and to ask questions if they do not understand what they are told or what they should do.
[2024-10-09] MEDS: ALBUTEROL SULFATE NEB 2.5 MG/3 ML INH INHALATION ×2 (14:37→20:16)
[2024-10-09] MEDS: IPRATROPIUM BR 0.02% INH SOLN 0.5 MG/2.5 ML VIAL INHALATION ×2 (14:37→20:16)
--- NOTE | 2024-10-09 15:00 | PM.IMHP ---
H&P: HPI History of Present Illness Date/Time: 10/09/24 16:00 Chief Complaint: Shortness of breath. Narrative: This is a very pleasant 74-year-old male with history of tobacco dependence, chronic obstructive pulmonary disease, combined systolic and diastolic congestive heart failure, hypertension, hyperlipidemia, type 2 diabetes mellitus, peripheral vascular disease, obstructive sleep apnea, and hypothyroidism who presented to the emergency department via EMS for evaluation of shortness of breath. He gives about a 1 week history of progressive dyspnea on lesser and lesser exertion in addition to mild orthopnea and swelling in the legs and feet. Nebulizers have not helped much. About 2 hours prior to arrival his shortness of breath got suddenly worse and quickly progressed to a point where he was only able to speak in 1 to 2 word sentences. He denies fever, cough, sore throat, chest pain, pleuritic pain, palpitations, nausea, vomiting, sweats, and calf pain. SpO2 on EMS arrival was in the 70s and he was immediately placed on CPAP and was given dexamethasone and magnesium sulfate. At the time my evaluation he is resting comfortably and is seated at the side of the bed on BiPAP which he states has helped tremendously. In the ED: He was afebrile on arrival with a blood pressure of 129/93, pulse 68, respiratory rate 28, an SpO2 of 100% on CPAP. Labs were significant for WBC count of 16.3, hemoglobin 9.9, hematocrit 33.7%, BUN 34, creatinine 1.66, glucose 183, lactic acid 0.7, AST 65, ALT 83, alkaline phosphatase 269, proBNP 8820, troponin 0.779. ABG showed a pH of 7.232, pCO2 47.8, PO2 104.5, HC03 19.7. He was placed on BiPAP with improvement in a repeat ABG. EKG showed sinus rhythm with ST T-wave abnormalities in the lateral leads. Chest x-ray showed bibasilar atelectasis versus pneumonia with pleural effusion and cardiomegaly with pulmonary edema. He was given a nebulizer treatment, furosemide 40 mg, and levofloxacin 7 in 50 mg and he is being admitted in this setting for further treatment and evaluation. Review of Systems Review of Systems: 12 systems were reviewed and are negative except for as per HPI. [facility] Past Medical History Medical History (Updated 10/09/24 @ 15:56 by Babs Arriaza PA-C) Hypertension Chronic anemia Chronic kidney disease Combined systolic and diastolic cardiac dysfunction Type 2 diabetes mellitus Hypothyroidism Arthritis Gout Tobacco dependence Obstructive sleep apnea Peripheral vascular disease Chronic obstructive pulmonary disease Hyperlipidemia Carotid stenosis Surgical History Surgical History History of carotid endarterectomy History of cholecystectomy History of cardiac catheterization History of revascularization procedure of lower extremity Family History Family History Father Hypertension Cerebrovascular accident Grandparent Family history of malignant neoplasm Diabetes mellitus Sibling Family history of diabetes mellitus in first degree relative Diabetes mellitus Mother Hyperlipidemia Social History Social History (Updated 10/09/24 @ 15:40 by Babs Arriaza PA-C) Social History: Surrogate medical decision maker: Brooks Morrissey, son ([phone]) and Kira Morrissey, spouse ([phone]). Code status: Full code. Smoking packs per day: 1 Smoking cigarettes per day: 20.0 Years smoked: 30 Smoking pack-years: 30.00 Smoking status: Former smoker Tobacco type: cigarettes Second hand tobacco smoke exposure: Yes Alcohol intake: never Substance use: current Substance use type: marijuana Other substance usage details: smoking and edibles Do You Feel Safe in your Home?: Yes Lack of Transportation: No Lack of Food: Never True Current Housing: I Have Housing Concerned About Future Housing: No Difficulty Paying Gas/Electric Bills: No Difficulty Paying for Meds: No Currently Unemployed: No Education: High School Diploma/GED Difficulty w/ Childcare or Family Care: No Living arrangements: with family Occupation/Education: retired Spiritual care concerns: Yes Meds Home Medications and Allergies Home Medications ?Medication ?Instructions ?Recorded ?Confirmed ?Type aspirin 81 mg tablet,delayed 81 mg PO DAILY 02/02/23 10/09/24 History release (Adult Low Dose Aspirin) empagliflozin 12.5 mg-metformin 1 tablet PO BID #180 tabs 01/03/24 10/09/24 Rx 1,000 mg tablet (Synjardy) hydrochlorothiazide 25 mg tablet 25 mg PO DAILY #90 tabs 01/03/24 10/09/24 Rx budesonide 160 mcg-glycopyr 9 2 inh inhalation BID #10.7 grams 05/05/24 10/09/24 Rx mcg-formot 4.8 mcg/actuation HFA inhaler (Breztri Aerosphere) amlodipine 10 mg tablet 10 mg PO DAILY 05/11/24 10/09/24 History blood sugar diagnostic (OneTouch #100 ea 06/17/24 09/29/24 Rx Ultra Test strips) blood-glucose meter (OneTouch #1 ea 06/17/24 09/29/24 Rx Ultra2 Meter) lancets #200 ea 06/17/24 09/29/24 Rx clopidogrel 75 mg tablet 75 mg PO DAILY #90 tabs 08/27/24 10/09/24 Rx rosuvastatin 40 mg tablet 40 mg PO DAILY #90 tabs 08/27/24 10/09/24 Rx sertraline 50 mg tablet 50 mg PO DAILY #90 tabs 08/28/24 10/09/24 Rx levothyroxine 75 mcg tablet 75 mcg PO DAILY #90 tabs 09/08/24 10/09/24 Rx albuterol sulfate 2.5 mg/3 mL 2.5 mg (3 mL) inhalation Q4-6H PRN 09/29/24 10/09/24 Rx (0.083 %) solution for nebulization shortness of breath or wheezing #75 mL albuterol sulfate 90 mcg/actuation 1 inh inhalation QID PRN 09/29/24 10/09/24 Rx aerosol inhaler SOB/Wheezing #8.5 grams zolpidem 5 mg tablet 10 mg (2 x 5 mg) PO QHS #30 tabs 09/29/24 10/09/24 Rx carvedilol 12.5 mg tablet 12.5 mg PO BID #60 tabs 10/01/24 10/09/24 Rx Allergies Allergy/AdvReac Type Severity Reaction Status Date / Time penicillin G Allergy Mild Unknown Verified 10/09/24 14:14 codeine Allergy Unknown Unknown Verified 10/09/24 14:14 Penicillins Allergy Unknown Unknown Verified 10/09/24 14:14 latex Allergy Unknown Verified 10/09/24 14:14 Vital Signs Vital Signs - 24 hr 10/09/24 10:03 10/09/24 10:15 10/09/24 10:15 Temperature 97.4 F L Pulse Rate 77 69 69 Respiratory Rate 40 H 28 H Blood Pressure 148/107 H 129/93 H Pulse Oximetry 96 100 Oxygen Delivery CPAP 10/09/24 10:20 10/09/24 10:30 10/09/24 10:40 Temperature Pulse Rate 69 61 Respiratory Rate 28 H 28 H Blood Pressure 147/75 H Pulse Oximetry 97 Oxygen Delivery BiPAP BiPAP 10/09/24 10:45 10/09/24 10:46 10/09/24 11:00 Temperature Pulse Rate 61 69 62 Respiratory Rate 25 H 24 H 23 H Blood Pressure 131/68 137/65 Pulse Oximetry 99 Oxygen Delivery 10/09/24 11:05 10/09/24 11:30 10/09/24 11:31 Temperature Pulse Rate 53 L 60 Respiratory Rate 17 22 H Blood Pressure 138/58 L Pulse Oximetry 99 93 95 Oxygen Delivery BiPAP BiPAP 10/09/24 11:59 10/09/24 12:01 10/09/24 12:30 Temperature Pulse Rate 56 L 55 L 59 L Respiratory Rate 19 20 20 Blood Pressure 122/70 139/62 137/70 Pulse Oximetry 95 92 94 Oxygen Delivery 10/09/24 12:45 10/09/24 13:00 10/09/24 13:15 Temperature Pulse Rate 54 L 50 L 53 L Respiratory Rate 19 17 19 Blood Pressure 135/67 130/61 130/67 Pulse Oximetry 95 96 100 Oxygen Delivery 10/09/24 13:40 10/09/24 13:55 10/09/24 13:56 Temperature 97.4 F L Pulse Rate 64 60 63 Respiratory Rate 28 H 22 H Blood Pressure 161/61 H Pulse Oximetry 96 100 Oxygen Delivery BiPAP 10/09/24 14:00 10/09/24 14:37 Temperature Pulse Rate 63 74 Respiratory Rate 26 H Blood Pressure Pulse Oximetry Oxygen Delivery Exam Narrative: General: Mildly ill-appearing male sitting at the side of the bed on BiPAP in no distress. Weight: 87.5 kg. BMI: 30.2. HEENT: PERRL, EOMI. Sclera anicteric. Mucous membranes appear tacky through the BiPAP mask. Neck: Supple. No significant JVD. Respiratory: On BiPAP, able to speak freely through the mask. Lung sounds are diminished throughout with scattered crackles. Cardiovascular: Regular rate and rhythm with occasional ectopy. Soft systolic murmur at the left sternal border. Gastrointestinal: Abdomen is soft, nontender, and nondistended with positive bowel sounds. Skin: Warm and dry. Generalized pallor. Extremities: No cyanosis or clubbing. Pitting edema of the lower legs. Radial pulses palpable. Pedal pulses diminished. Neurological: Alert and oriented. Cranial nerves 2-12 are grossly intact. No gross focal deficits to casual conversation. Psychiatric: Pleasant and cooperative with appropriate mood and affect. H&P: Results Labs Labs: Short CBC 10/09/24 Range/Units 10:18 WBC 16.3 H (4.5-10.0) K/mm3 Hgb 9.9 L (14.0-18.0) g/dL Hct 33.7 L (42.0-52.0) % Plt Count 304 (150-375) k/mm3 BMP 10/09/24 10:18 Sodium 144 Potassium 4.0 Chloride 109 H Carbon Dioxide 24 BUN 34 H D Creatinine 1.66 H Glucose 183 H Calcium 8.6 Cardiac Enzymes 10/09/24 Range/Units 10:18 Troponin I 0.799 H* (0.000-0.034) ng/mL Liver Function 10/09/24 Range/Units 10:18 Total Bilirubin 0.4 (0.2-1.3) mg/dL AST 65 H (17-59) U/L ALT 83 H (6-50) U/L Alkaline Phosphatase 269 H (38-126) U/L Albumin 3.9 (3.5-5.1) g/dL Imaging Chest X-Ray 10/09/24 10:43 IMPRESSION: Bibasilar atelectasis versus pneumonia with pleural effusion more on the right side. Cardiomegaly with cardiac decompensation and pulmonary edema. ABG ABG results: 10/09/24 10/09/24 10:22 11:44 Puncture Site Right radial Right radial ABG pH 7.232 L* 7.301 L ABG pCO2 47.8 H 45.7 H ABG pO2 104.5 H 59.2 L ABG PO2/FiO2 Ratio 1.74 1.69 ABG HCO3 19.7 L 22.0 ABG O2 Saturation 96.8 88.0 L ABG O2 Content 13.9 L 11.9 L ABG Base Excess -7.6 -4.2 A-a Gradient 270.7 137.2 Oxyhemoglobin 96.0 87.2 L* Total Hemoglobin 10.2 L 9.7 L O2 Delivery Device Bipap Bipap O2 Liters/Min Not Reportable Not Reportable FiO2 60 35 Assessment and Plan Assessment and plan (1) Acute respiratory failure with hypoxia and hypercapnia: Code(s): J96.01 - Acute respiratory failure with hypoxia; J96.02 - Acute respiratory failure with hypercapnia Status: Acute (2) Non-ST elevation myocardial infarction (NSTEMI): Code(s): I21.4 - Non-ST elevation (NSTEMI) myocardial infarction Status: Acute (3) Combined systolic and diastolic cardiac dysfunction: Code(s): I51.89 - Other ill-defined heart diseases Status: Acute (4) Chronic obstructive pulmonary disease: Qualifiers: COPD type: emphysema Emphysema type: unspecified Qualified Code(s): J43.9 - Emphysema, unspecified Code(s): J44.9 - Chronic obstructive pulmonary disease, unspecified Status: Chronic (5) Chronic kidney disease: Code(s): N18.9 - Chronic kidney disease, unspecified Status: Acute (6) Hypertension: Qualifiers: Hypertension type: primary hypertension Qualified Code(s): I10 - Essential (primary) hypertension Code(s): I10 - Essential (primary) hypertension Status: Acute (7) Type 2 diabetes mellitus: Qualifiers: Diabetes mellitus complication status: with other specified complication Diabetes mellitus apparel patternmaker insulin use: without apparel patternmaker use Qualified Code(s): E11.69 - Type 2 diabetes mellitus with other specified complication Code(s): E11.9 - Type 2 diabetes mellitus without complications Status: Acute (8) Hypothyroidism: Qualifiers: Hypothyroidism type: acquired Qualified Code(s): E03.9 - Hypothyroidism, unspecified Code(s): E03.9 - Hypothyroidism, unspecified Status: Acute (9) Mixed hyperlipidemia: Code(s): E78.2 - Mixed hyperlipidemia Status: Acute (10) Peripheral vascular disease: Code(s): I73.9 - Peripheral vascular disease, unspecified Status: Acute (11) Chronic anemia: Code(s): D64.9 - Anemia, unspecified Status: Acute (12) Obstructive sleep apnea: Code(s): G47.33 - Obstructive sleep apnea (adult) (pediatric) Status: Acute Plan The patient presented to the emergency department for evaluation of fairly sudden onset of shortness of breath about 2 hours prior to arrival as detailed in HPI. Labs, imaging, EKG, and all reports were personally reviewed. He was started on CPAP per EMS and was transitioned to BiPAP due to hypoxia and mild hypercarbia seen on ABG. Repeat blood gas has improved and will be monitored closely. Etiology of this respiratory decompensation is likely due to acute on chronic combined systolic and diastolic heart failure in addition to chronic obstructive pulmonary disease and possible pneumonia though that seems less likely. Cannot rule out a cardiac event although he is not having chest pain. EKG does show some ST-T segment changes concerning for ischemia and initial troponin was elevated. Suspect type 2 NE related to acute respiratory failure. I will give him a 1 time dose of enoxaparin 1 mg/kg pending Dr. Shah's input. Continue dual antiplatelet therapy, beta-liss, and statin. He will be diuresed with close monitoring of volume status, renal function, and electrolytes. He will remain on empiric antibiotics for possible pneumonia and nebulizer treatments are available. No indication for steroids. Renal function and chronic anemia are stable on review of previous labs. Blood pressure should improve with diuresis. Initiate sliding scale insulin, Accu-Cheks, and hypoglycemic protocol. His chronic conditions including hypothyroidism, hyperlipidemia, peripheral vascular disease are stable. His home medications will be reviewed and resumed as appropriate. Findings and treatment plan were discussed with the patient. Questions were solicited and answered to satisfaction. The patient's medical management will be taken over by the hospitalist team in a.m. Quality VTE Prophylaxis VTE prophylaxis: mechanical ordered If No VTE Prophylaxis Answer both mechanical and pharmacologic: Reason no pharmacologic proph: medical contraindication (patient on dual anti-platelet therapy, pharmacologic prophylaxis would put him at increased risk for bleeding) Hospitalist MIPS Advance Care Plan I have confirmed that the patient's Advanced Care Plan is present, code status is documented, or surrogate decision maker is listed in patient medical record.: Yes Medication Reconciliation I have utilized all available resources to obtain, update and review the patients current medications (includes all prescriptions, OTC, herbals, cannabis, and nutritional supplements).: Yes
[2024-10-09 16:01] LABS: Troponin I 0.622 ng/mL (0.000-0.034)
--- NOTE | 2024-10-09 16:29 | PM.CNCAR ---
Assessment and Plan Assessment and plan (1) Combined systolic and diastolic cardiac dysfunction: Code(s): I51.89 - Other ill-defined heart diseases Status: Acute Assessment and Plan: Acute on chronic. NTproBNP 8,820. On Lasix 40 mg IV BID. Obtain echo. (2) Elevated troponin: Code(s): R79.89 - Other specified abnormal findings of blood chemistry Status: Acute Assessment and Plan: Peaked at 0.799 and trending down 0.622. Could be due to pneumonia or CHF and consider PE, doubt ACS. If echo shows enlarged or hypokinetic RV then would order V/Q scan. Got a dose of Lovenox. (3) Tobacco abuse: Code(s): Z72.0 - Tobacco use Status: Acute Assessment and Plan: Counseled regarding smoking cessation. (4) Mixed hyperlipidemia: Code(s): E78.2 - Mixed hyperlipidemia Status: Acute Assessment and Plan: On Rosuvastatin. (5) Essential (primary) hypertension: Code(s): I10 - Essential (primary) hypertension Status: Acute Assessment and Plan: Stable. (6) Peripheral vascular disease: Code(s): I73.9 - Peripheral vascular disease, unspecified Status: Acute Assessment and Plan: Stable. (7) Pneumonia: Code(s): J18.9 - Pneumonia, unspecified organism Status: Acute Assessment and Plan: On antibiotics. (8) Chronic obstructive pulmonary disease: Qualifiers: COPD type: emphysema Emphysema type: unspecified Qualified Code(s): J43.9 - Emphysema, unspecified Code(s): J44.9 - Chronic obstructive pulmonary disease, unspecified Status: Chronic Assessment and Plan: On Nebs and BiPAP. History of Present Illness History of Present Illness Consult date/time: 10/09/24 16:29 Reason For Visit: Pneumonia/CHF/Elevated Trop/Acute Hypoxic Resp Callum Narrative: 74 yr old man who is my regular cardiology patient presents to ER with sob. He has a history of systolic dysfunction, COPD, smoking, hypertension, dyslipidemia, DM, PAD with stent to right femoral artery with Dr. Arce at [facility]), right carotid stent at [facility]. Son is at bedside. Reports he was unable to lie down at night due to sob so he decided to come to ER. He is currently on BiPAP. Normally he is limited at walking 1/2 block due to LGEZ and leg fatigue. He smokes 1 ppd. Denies orthopnea, PND, edema, palpitations. He was hospitalized on 05/12/24 for syncope and septic shock. Cardiovascular Procedures Echo/MUGA:: 08/21/24 Echo: EF 40-45%, severe LVE, mild LVH, grade II diastolic dysfunction (E/e' 17), mod LAE, mild MR/TR. 05/12/24 Echo: TDS. EF 35-40%, mild LVE, grade I diastolic dysfunction, mild LAE, trace MR. Electrophysiology:: 05/11/24 EKG: Sinus rhythm, borderline ST-T wave abnormality. Stress Tests:: 07/08/24 BONNIE: Right 0.58, left 0.54. Review of Systems Review of Systems: All systems reviewed & are unremarkable except as noted in HPI and below Constitutional: Constitutional: Reports as per HPI, Denies chills, Reports fatigue and Denies fever(s) Cardiovascular: Cardiovascular: Reports as per HPI, Denies chest pain and Denies irregular heart rhythm Respiratory: Respiratory: Reports as per HPI and Reports dyspnea Gastrointestinal: Gastrointestinal: Reports as per HPI and Denies abdominal pain Genitourinary: Genitourinary: Reports as per HPI and Denies dysuria Musculoskeletal: Musculoskeletal: Reports as per HPI Neurologic: Reports as per HPI, Denies dizziness and Denies syncope [facility] Past Medical History Medical History (Updated 10/09/24 @ 15:56 by Babs Arriaza PA-C) Hypertension Chronic anemia Chronic kidney disease Combined systolic and diastolic cardiac dysfunction Type 2 diabetes mellitus Hypothyroidism Arthritis Gout Tobacco dependence Obstructive sleep apnea Peripheral vascular disease Chronic obstructive pulmonary disease Hyperlipidemia Carotid stenosis Surgical History Surgical History History of carotid endarterectomy History of cholecystectomy History of cardiac catheterization History of revascularization procedure of lower extremity Family History Family History Father Hypertension Cerebrovascular accident Grandparent Family history of malignant neoplasm Diabetes mellitus Sibling Family history of diabetes mellitus in first degree relative Diabetes mellitus Mother Hyperlipidemia Social History Social History (Updated 10/09/24 @ 15:40 by Babs Arriaza PA-C) Social History: Surrogate medical decision maker: Brooks Morrissey, son ([phone]) and Kira Morrissey, spouse ([phone]). Code status: Full code. Smoking packs per day: 1 Smoking cigarettes per day: 20.0 Years smoked: 30 Smoking pack-years: 30.00 Smoking status: Former smoker Tobacco type: cigarettes Second hand tobacco smoke exposure: Yes Alcohol intake: never Substance use: current Substance use type: marijuana Other substance usage details: smoking and edibles Do You Feel Safe in your Home?: Yes Lack of Transportation: No Lack of Food: Never True Current Housing: I Have Housing Concerned About Future Housing: No Difficulty Paying Gas/Electric Bills: No Difficulty Paying for Meds: No Currently Unemployed: No Education: High School Diploma/GED Difficulty w/ Childcare or Family Care: No Living arrangements: with family Occupation/Education: retired Spiritual care concerns: Yes Meds Home Medications and Allergies Home Medications ?Medication ?Instructions ?Recorded ?Confirmed ?Type aspirin 81 mg tablet,delayed 81 mg PO DAILY 02/02/23 10/09/24 History release (Adult Low Dose Aspirin) empagliflozin 12.5 mg-metformin 1 tablet PO BID #180 tabs 01/03/24 10/09/24 Rx 1,000 mg tablet (Synjardy) hydrochlorothiazide 25 mg tablet 25 mg PO DAILY #90 tabs 01/03/24 10/09/24 Rx budesonide 160 mcg-glycopyr 9 2 inh inhalation BID #10.7 grams 05/05/24 10/09/24 Rx mcg-formot 4.8 mcg/actuation HFA inhaler (Breztri Aerosphere) amlodipine 10 mg tablet 10 mg PO DAILY 05/11/24 10/09/24 History blood sugar diagnostic (OneTouch #100 ea 06/17/24 09/29/24 Rx Ultra Test strips) blood-glucose meter (OneTouch #1 ea 06/17/24 09/29/24 Rx Ultra2 Meter) lancets #200 ea 06/17/24 09/29/24 Rx clopidogrel 75 mg tablet 75 mg PO DAILY #90 tabs 08/27/24 10/09/24 Rx rosuvastatin 40 mg tablet 40 mg PO DAILY #90 tabs 08/27/24 10/09/24 Rx sertraline 50 mg tablet 50 mg PO DAILY #90 tabs 08/28/24 10/09/24 Rx levothyroxine 75 mcg tablet 75 mcg PO DAILY #90 tabs 09/08/24 10/09/24 Rx albuterol sulfate 2.5 mg/3 mL 2.5 mg (3 mL) inhalation Q4-6H PRN 09/29/24 10/09/24 Rx (0.083 %) solution for nebulization shortness of breath or wheezing #75 mL albuterol sulfate 90 mcg/actuation 1 inh inhalation QID PRN 09/29/24 10/09/24 Rx aerosol inhaler SOB/Wheezing #8.5 grams zolpidem 5 mg tablet 10 mg (2 x 5 mg) PO QHS #30 tabs 09/29/24 10/09/24 Rx carvedilol 12.5 mg tablet 12.5 mg PO BID #60 tabs 10/01/24 10/09/24 Rx Allergies Allergy/AdvReac Type Severity Reaction Status Date / Time penicillin G Allergy Mild Unknown Verified 10/09/24 14:14 codeine Allergy Unknown Unknown Verified 10/09/24 14:14 Penicillins Allergy Unknown Unknown Verified 10/09/24 14:14 latex Allergy Unknown Verified 10/09/24 14:14 Vital Signs Vital Signs - 24 hr 10/09/24 10:03 10/09/24 10:15 10/09/24 10:15 Temperature 97.4 F L Pulse Rate 77 69 69 Respiratory Rate 40 H 28 H Blood Pressure 148/107 H 129/93 H Pulse Oximetry 96 100 Oxygen Delivery CPAP 10/09/24 10:20 10/09/24 10:30 10/09/24 10:40 Temperature Pulse Rate 69 61 Respiratory Rate 28 H 28 H Blood Pressure 147/75 H Pulse Oximetry 97 Oxygen Delivery BiPAP BiPAP 10/09/24 10:45 10/09/24 10:46 10/09/24 11:00 Temperature Pulse Rate 61 69 62 Respiratory Rate 25 H 24 H 23 H Blood Pressure 131/68 137/65 Pulse Oximetry 99 Oxygen Delivery 10/09/24 11:05 10/09/24 11:30 10/09/24 11:31 Temperature Pulse Rate 53 L 60 Respiratory Rate 17 22 H Blood Pressure 138/58 L Pulse Oximetry 99 93 95 Oxygen Delivery BiPAP BiPAP 10/09/24 11:59 10/09/24 12:01 10/09/24 12:30 Temperature Pulse Rate 56 L 55 L 59 L Respiratory Rate 19 20 20 Blood Pressure 122/70 139/62 137/70 Pulse Oximetry 95 92 94 Oxygen Delivery 10/09/24 12:45 10/09/24 13:00 10/09/24 13:15 Temperature Pulse Rate 54 L 50 L 53 L Respiratory Rate 19 17 19 Blood Pressure 135/67 130/61 130/67 Pulse Oximetry 95 96 100 Oxygen Delivery 10/09/24 13:40 10/09/24 13:55 10/09/24 13:56 Temperature 97.4 F L Pulse Rate 64 60 63 Respiratory Rate 28 H 22 H Blood Pressure 161/61 H Pulse Oximetry 96 100 Oxygen Delivery BiPAP 10/09/24 14:00 10/09/24 14:37 Temperature Pulse Rate 63 74 Respiratory Rate 26 H Blood Pressure Pulse Oximetry Oxygen Delivery Exam Const: General: cooperative, healthy appearing and comfortable Resp: Auscultation: no crackles, rhonchi, wheezes and diminished lung sounds Cardio: Rate: regular rate Rhythm: regular rhythm Heart sounds: no murmurs Peripheral pulses: dorsalis pedis present GI: GI Palp: No abdominal tenderness and Yes Soft to palpation Neuro: General: oriented to person, oriented to place and oriented to time Extrem: Right lower extremity: edema Left lower extremity: edema Other: Mild ankle edema bilaterally Results Labs and Meds 10/09/24 10:18 10/09/24 10:18 Lab results: Cardiac Enzymes 10/09/24 10/09/24 Range/Units 10:18 14:49 AST 65 H (17-59) U/L Troponin I 0.799 H* 0.622 H* D (0.000-0.034) ng/mL Coagulation 10/09/24 Range/Units 10:18 PT 14.4 (11.1-14.7) Seconds APTT 34.9 (22.3-36.8) Seconds CBC 10/09/24 Range/Units 10:18 WBC 16.3 H (4.5-10.0) K/mm3 RBC 3.96 L (4.6-6.20) M/mm3 Hgb 9.9 L (14.0-18.0) g/dL Hct 33.7 L (42.0-52.0) % Plt Count 304 (150-375) k/mm3 Lymph # (Auto) 1.63 (0.9-3.2) K/mm3 Dickson # (Auto) 1.0 H (0.1-0.6) K/mm3 Eos # (Auto) 0.3 (0-0.3) K/mm3 Baso # (Auto) 0.1 (0.0-0.1) K/mm3 Comprehensive Metabolic Panel 10/09/24 Range/Units 10:18 Sodium 144 (137-145) mmol/L Potassium 4.0 (3.4-5.0) mmol/L Chloride 109 H (98-107) mmol/L Carbon Dioxide 24 (22-30) mmol/L BUN 34 H D (9-20) mg/dL Creatinine 1.66 H (0.7-1.3) mg/dL Glucose 183 H (65-110) mg/dL Calcium 8.6 (8.4-10.2) mg/dL AST 65 H (17-59) U/L ALT 83 H (6-50) U/L Alkaline Phosphatase 269 H (38-126) U/L Total Protein 7.0 (6.3-8.2) g/dL Albumin 3.9 (3.5-5.1) g/dL Intake and Output 10/09/24 10/09/24 10/09/24 07:59 15:59 23:59 Output Total 450 Balance -450 Output: Urine 450 Patient Weight 10/09/24 23:59 Weight 87.5 kg
[2024-10-09 17:32] LABS: Glucose Point of Care 145 mg/dl (65-105)
[2024-10-09] MEDS: ENOXAPARIN 100 MG/ML SYRINGE 88 MG SUB-Q (17:48)
[2024-10-09 18:00] LABS: Influenza A QL RT-PCR Negative (Negative); Influenza B QL RT-PCR Negative (Negative); RSV RNA, RT-PCR Negative (Negative); SARS-CoV-2 RNA PCR Negative (Negative)
[2024-10-09 18:36] LABS: MRSA (PCR) NOT DETECTED (NOT DETECTE)
[2024-10-09 19:03] LABS: Troponin I 0.617 ng/mL (0.000-0.034)
[2024-10-09 19:57] LABS: Glucose Point of Care 272 mg/dl (65-105)
[2024-10-09] MEDS: DOXYCYCLINE HYCLATE 100 MG TABLET PO (20:07)
[2024-10-09] MEDS: INSULIN ASPART (*BKC) 100 UNITS/ML SUB-Q (20:10)
[2024-10-09 20:58] LABS: Hemoglobin A1C 5.9 % (<5.7)
[2024-10-10] VITALS (24 sets, daily range): BP systolic 108–157; BP diastolic 50–83; PULSE 53–68; RESP 16–24; TEMP 36.4–36.8; O2SAT 91–100
--- NOTE | 2024-10-10 | ECHO_ITS ---
Patient Info Name: Eladio Morrissey Age: 74 years : 1950 Gender: Male Ht: 67 in Wt: 192 lbs BSA: 2.05 m2 HR: 60 bpm BP: 141 / 69 mmHg Heart Rhythm: Sinus Rhythm Technical Quality: Fair Exam Date: 10/10/2024 12:04 PM Exam Location: Echo Lab Patient Status: Inpatient Admit Date: 10/09/2024 Staff Ordering Physician: Hunter Shah DO Illustrator Set: Alana Smith RDCS Attending Provider: Sarabjit Laguna MD Referring Physician: Pablo ANTONIO; Exam Type: CA echo doppler color flow Study Info Indications - CHF, Elevated troponin Complete two-dimensional, color flow and Doppler transthoracic echocardiogram is performed. Summary 1. Complete two-dimensional, color flow and Doppler transthoracic echocardiogram is performed. 2. Left ventricular chamber dimension is moderately enlarged. 3. Left ventricular systolic function is mildly reduced, estimated at 45-50%. 4. The left ventricular diastolic function is abnormal. 5. E/e' 15 is elevated. 6. Left atrial chamber dimension is severely enlarged. 7. Right atrial chamber dimension is mildly enlarged. 8. There is mild aortic valve sclerosis. 9. There is mild mitral valve regurgitation. 10. No pulmonary hypertension, estimated pulmonary arterial systolic pressure is 36 mmHg. Left Ventricle E/e' 15 is elevated. Left ventricular chamber dimension is moderately enlarged. Left ventricular systolic function is mildly reduced, estimated at 45-50%. The left ventricular diastolic function is abnormal. Right Ventricle Right ventricular systolic function is normal and with normal TAPSE 2.2 cm. Right ventricular chamber dimension is normal. Left Atria Left atrial chamber dimension is severely enlarged. Right Atria Right atrial chamber dimension is mildly enlarged. Aortic Valve The aortic valve is trileaflet. There is mild aortic valve sclerosis. There is no aortic valve stenosis. There is no aortic valve regurgitation. Pulmonic Valve There is no pulmonic regurgitation. Mitral Valve There is no mitral valve stenosis. There is mild mitral valve regurgitation. Tricuspid Valve There is no tricuspid valve regurgitation. No pulmonary hypertension, estimated pulmonary arterial systolic pressure is 36 mmHg. Pericardium/Pleural There is no pericardial effusion. Inferior Vena Cava Normal inferior vena cava with >50% collapse upon inspiration consistent with normal right atrial pressure, 5 mmHg. Aorta The aortic root size at the sinus of Valsalva is normal. Left Ventricular Outflow Tract Name Value Normal LVOT 2D LVOT Diameter 2.1 cm LVOT Doppler LVOT Peak Gradient 11 mmHg LVOT Mean Gradient 5 mmHg LVOT VTI 38 cm LVOT VTI/AV VTI Ratio 0.7 LVOT Stroke Volume 138 ml LVOT CO 7.1 l/min LVOT CI 3.5 l/min/m2 Pulmonic Valve Name Value Normal RVOT Doppler RVOT Peak Gradient 2 mmHg PV Doppler PV Peak Gradient 6 mmHg Mitral Valve Name Value Normal MV Doppler MV Decel [place] 467 cm/s2 MV PHT 70 ms MV Area (PHT) 3.1 cm2 4.0-5.0 MV Diastolic Function MV E Peak Velocity 113 cm/s MV A Peak Velocity 59 cm/s MV E/A 1.9 MV Decel Time 243 ms MV Annular TDI MV E/e' (Septal) 19.1 <=8.0 MV E/e' (Lateral) 15.3 <=8.0 MV E/e' (Average) 17.2 Tricuspid Valve Name Value Normal TV Regurgitation Doppler TR Peak Velocity 280 cm/s TR Peak Gradient 31 mmHg Estimated PAP/RSVP RA Pressure 5 mmHg <=5 PA Systolic Pressure 36 mmHg <36 RV Systolic Pressure 36 mmHg <36 Aortic Valve Name Value Normal AV Doppler AV Peak Velocity 251 cm/s AV Peak Gradient 25 mmHg AV Mean Gradient 11 mmHg AV VTI 52 cm AV Area (Cont Eq VTI) 2.7 cm2 >=3.0 AV Area (Cont Eq Syed) 2.3 cm2 AV Regurgitation 2D LVOT Area 3.6 cm2 Ventricles Name Value Normal LV Dimensions 2D/MM IVS Diastolic Thickness (2D) 0.9 cm 0.6-1.0 LVID Diastole (2D) 6.0 cm 4.2-5.8 LVIW Diastolic Thickness (2D) 1.0 cm 0.6-1.0 LVID Systole (2D) 4.8 cm 2.5-4.0 LVOT Diameter 2.1 cm LV Mass (2D Cubed) 228.58 g 88.00-224.00 LV Mass Index (2D Cubed) 111 g/m2 49-115 Relative Wall Thickness (2D) 0.32 LV Fractional Shortening/Ejection Fraction 2D/MM LV Fractional Shortening (2D) 20 % 25-43 LV EF (2D Teicholz) 40 % 52-72 LV Diastolic Volume (4C MOD) 244 ml LV EF (4C MOD) 46 % LV Diastolic Volume (2C MOD) 223 ml LV EF (2C MOD) 53 % LV Diastolic Volume (BP MOD) 236 ml 62-150 LV Diastolic Volume Index (BP MOD) 115 ml/m2 34-74 LV Systolic Volume (BP MOD) 118 ml 21-61 LV Systolic Volume Index (BP MOD) 58 ml/m2 11-31 LV EF (BP MOD) 50 % 52-72 LV Diastolic Length (4C) 9.6 cm LV Systolic Length (4C) 8.3 cm LV Stroke Volume (4C MOD) 111 ml Atria Name Value Normal LA Dimensions LA Volume (4C A-L) 131 ml LA Volume (BP A-L) 131 ml RA Dimensions RA Area (4C) 22.8 cm2 <=18.0 Report Signatures
[2024-10-10] MEDS: IPRATROPIUM BR 0.02% INH SOLN 0.5 MG/2.5 ML VIAL INHALATION ×2 (02:21→07:50)
[2024-10-10] MEDS: ALBUTEROL SULFATE NEB 2.5 MG/3 ML INH INHALATION ×2 (02:21→07:50)
[2024-10-10 04:20] LABS: Hematocrit 27.8 % (42.0-52.0); Hemoglobin 8.3 g/dL (14.0-18.0); Mean Corpuscular HGB Conc 29.9 g/dl (32-36); Mean Corpuscular Hemoglobin 25.2 pg (26-34); Mean Corpuscular Volume 84.2 fl (80-100); Mean Platelet Volume 9.6 fl (7.4-10.4); Platelet Count Result 233 k/mm3 (150-375); Red Cell Distribution Width 19.1 % (11.5-14.5); White Blood Count 8.7 K/mm3 (4.5-10.0)
[2024-10-10 04:23] LABS: Fractional Inspired Oxygen 35 %; HCO3 VBG 21.4 mEq/l (24.0-30.0); PCO2 VBG 37.5 mmHg (42.0-48.0); PO2 VBG 43.7 mmHg (35.0-45.0); pH VBG 7.374 (7.300-7.400)
[2024-10-10 04:26] LABS: Device NON-INVASIVE VENT; Non-Invasive Inspiratory Pressure 12 CMH2O; Non-Invasive Vent Rate 22 /MIN
[2024-10-10 04:27] LABS: Non-Invasive Expiratory Pressure 5 CMH2O
[2024-10-10 04:36] LABS: Alanine Aminotransferase 53 U/L (6-50); Albumin Level 3.1 g/dL (3.5-5.1); Alkaline Phosphatase 199 U/L (38-126); Anion Gap 10 mmol/L (4-12); Aspartate Amino Transferase 21 U/L (17-59); Bilirubin,Total 0.2 mg/dL (0.2-1.3); Blood Urea Nitrogen 39 mg/dL (9-20); Calcium 8.2 mg/dL (8.4-10.2); Carbon Dioxide 22 mmol/L (22-30); Chloride 107 mmol/L (98-107); Estimated CRCL calculation 41 ml/min; Estimated Glomerular Filt Rate 44; Glucose 121 mg/dL (65-110); Magnesium 2.1 mg/dL (1.6-2.3); Potassium 4.4 mmol/L (3.4-5.0); Sodium 139 mmol/L (137-145)
[2024-10-10 06:19] LABS: Free T4 Free Thyroxine Reflex 0.69 ng/dL (0.78-2.19)
[2024-10-10] MEDS: LEVOTHYROXINE SODIUM 75 MCG TABLET PO (06:20)
[2024-10-10] MEDS: FLUTICASONE/UMECLIDIN/VILANTER 100-62.5-25 MCG ELLIPTA 1 PUFF INHALATION (08:02)
--- NOTE | 2024-10-10 08:05 | P.PNCA_ITS ---
Progress Note: A&P Assessment and Plan (1) Combined systolic and diastolic cardiac dysfunction: Code(s): I51.89 - Other ill-defined heart diseases Status: Acute Assessment and Plan: Acute on chronic. NTproBNP 8,820. On Lasix 40 mg IV BID. Obtain echo. (2) Elevated troponin: Code(s): R79.89 - Other specified abnormal findings of blood chemistry Status: Acute Assessment and Plan: Peaked at 0.799 and trending down 0.6217. Could be due to pneumonia or CHF and consider PE, doubt ACS. If echo shows enlarged or hypokinetic RV then would order V/Q scan. Got a dose of Lovenox. (3) Tobacco abuse: Code(s): Z72.0 - Tobacco use Status: Acute Assessment and Plan: Counseled regarding smoking cessation. (4) Mixed hyperlipidemia: Code(s): E78.2 - Mixed hyperlipidemia Status: Acute Assessment and Plan: On Rosuvastatin. (5) Essential (primary) hypertension: Code(s): I10 - Essential (primary) hypertension Status: Acute Assessment and Plan: Stable. (6) Peripheral vascular disease: Code(s): I73.9 - Peripheral vascular disease, unspecified Status: Acute Assessment and Plan: Stable. (7) Pneumonia: Code(s): J18.9 - Pneumonia, unspecified organism Status: Acute Assessment and Plan: On antibiotics. (8) Chronic obstructive pulmonary disease: Qualifiers: COPD type: emphysema Emphysema type: unspecified Qualified Code(s): J43.9 - Emphysema, unspecified Code(s): J44.9 - Chronic obstructive pulmonary disease, unspecified Status: Chronic Assessment and Plan: On Nebs and BiPAP. Subjective Date/time seen: 10/10/24 08:05 Interval history: Reports breathing improving. No chest pains. Exam Const: General: cooperative, healthy appearing and comfortable Orientation/consciousness: oriented to person, oriented to place and oriented to time Resp: Auscultation: clear to auscultation bilaterally, no crackles, no rales, no rhonchi and no wheezes Other: Coarse breath sounds Cardio: Rate: regular rate Rhythm: regular rhythm Heart sounds: no murm urs Peripheral pulses: dorsalis pedis present Neuro: General: oriented to person, oriented to place and oriented to time Extrem: Right lower extremity: edema Left lower extremity: edema Other: Mild ankle edema bilaterally Objective Data Vital Signs Vital Signs: Vital Signs - 24 hr 10/09/24 10:03 10/09/24 10:15 10/09/24 10:15 Temperature 97.4 F L Pulse Rate 77 69 69 Respiratory Rate 40 H 28 H Blood Pressure 148/107 H 129/93 H Pulse Oximetry 96 100 Oxygen Delivery CPAP Oxygen Flow Rate Fraction of Inspired Oxygen 10/09/24 10:20 10/09/24 10:30 10/09/24 10:40 Temperature Pulse Rate 69 61 Respiratory Rate 28 H 28 H Blood Pressure 147/75 H Pulse Oximetry 97 Oxygen Delivery BiPAP BiPAP Oxygen Flow Rate Fraction of Inspired Oxygen 10/09/24 10:45 10/09/24 10:46 10/09/24 11:00 Temperature Pulse Rate 61 69 62 Respiratory Rate 25 H 24 H 23 H Blood Pressure 131/68 137/65 Pulse Oximetry 99 Oxygen Delivery Oxygen Flow Rate Fraction of Inspired Oxygen 10/09/24 11:05 10/09/24 11:30 10/09/24 11:31 Temperature Pulse Rate 53 L 60 Respiratory Rate 17 22 H Blood Pressure 138/58 L Pulse Oximetry 99 93 95 Oxygen Delivery BiPAP BiPAP Oxygen Flow Rate Fraction of Inspired Oxygen 10/09/24 11:59 10/09/24 12:01 10/09/24 12:30 Temperature Pulse Rate 56 L 55 L 59 L Respiratory Rate 19 20 20 Blood Pressure 122/70 139/62 137/70 Pulse Oximetry 95 92 94 Oxygen Delivery Oxygen Flow Rate Fraction of Inspired Oxygen 10/09/24 12:45 10/09/24 13:00 10/09/24 13:15 Temperature Pulse Rate 54 L 50 L 53 L Respiratory Rate 19 17 19 Blood Pressure 135/67 130/61 130/67 Pulse Oximetry 95 96 100 Oxygen Delivery Oxygen Flow Rate Fraction of Inspired Oxygen 10/09/24 13:40 10/09/24 13:55 10/09/24 13:56 Temperature 97.4 F L Pulse Rate 64 60 63 Respiratory Rate 28 H 22 H Blood Pressure 161/61 H Pulse Oximetry 96 100 Oxygen Delivery BiPAP Oxygen Flow Rate Fraction of Inspired Oxygen 10/09/24 14:00 10/09/24 14:37 10/09/24 16:00 Temperature Pulse Rate 63 74 61 Respiratory Rate 26 H Blood Pressure Pulse Oximetry Oxygen Delivery Oxygen Flow Rate Fraction of Inspired Oxygen 10/09/24 16:00 10/09/24 18:00 10/09/24 19:58 Temperature 98 F 98.2 F Pulse Rate 65 75 62 Respiratory Rate 24 H 23 H Blood Pressure 167/56 H 142/67 H Pulse Oximetry 98 100 Oxygen Delivery Oxygen Flow Rate Fraction of Inspired Oxygen 10/09/24 20:00 10/09/24 20:00 10/09/24 20:08 Temperature Pulse Rate 64 64 Respiratory Rate 26 H Blood Pressure Pulse Oximetry 98 100 Oxygen Delivery Nasal Cannula BiPAP Oxygen Flow Rate 3 Fraction of Inspired Oxygen 10/09/24 20:10 10/09/24 20:25 10/09/24 22:00 Temperature Pulse Rate 64 68 57 L Respiratory Rate 26 H 26 H Blood Pressure Pulse Oximetry Oxygen Delivery Oxygen Flow Rate Fraction of Inspired Oxygen 10/10/24 00:00 10/10/24 00:00 10/10/24 00:00 Temperature 98 F Pulse Rate 68 56 L Respiratory Rate 22 H Blood Pressure 131/73 Pulse Oximetry 100 100 Oxygen Delivery BiPAP Oxygen Flow Rate Fraction of Inspired Oxygen 60 10/10/24 02:00 10/10/24 02:22 10/10/24 02:23 Temperature Pulse Rate 65 59 L 59 L Respiratory Rate 24 H 24 H Blood Pressure Pulse Oximetry 96 Oxygen Delivery BiPAP Oxygen Flow Rate Fraction of Inspired Oxygen 10/10/24 02:33 10/10/24 03:50 10/10/24 04:00 Temperature 97.5 F L Pulse Rate 61 60 Respiratory Rate 24 H 22 H Blood Pressure 141/69 H Pulse Oximetry 96 97 Oxygen Delivery BiPAP Oxygen Flow Rate Fraction of Inspired Oxygen 60 10/10/24 04:00 10/10/24 05:45 10/10/24 06:00 Temperature Pulse Rate 62 60 60 Respiratory Rate 24 H Blood Pressure Pulse Oximetry 97 Oxygen Delivery BiPAP Oxygen Flow Rate Fraction of Inspired Oxygen 10/10/24 07:50 10/10/24 07:50 Temperature Pulse Rate 62 Respiratory Rate 22 H Blood Pressure Pulse Oximetry 96 Oxygen Delivery Nasal Cannula Oxygen Flow Rate 3 Fraction of Inspired Oxygen 32 Intake/Output Intake/Output: Intake & Output 10/07/24 10/08/24 10/09/24 10/10/24 23:59 23:59 23:59 23:59 Intake Total 440 300 Output Total 1450 500 Balance -1010 -200 Meds/Results Medications: Active Medications Generic Name Dose Route Start Last Admin Trade Name Freq PRN Reason Stop Dose Admin Acetaminophen 650 mg 10/09/24 12:13 Acetaminophen 325 Mg Tablet PO Q4H PRN Mild Pain (1-3) or Fever Albuterol 2.5 mg 10/09/24 14:00 10/10/24 07:50 Albuterol Sulfate Neb 2.5 Mg/3 Ml Inh INHALATION 2.5 mg Q6HRT SANGEETA Administration Amlodipine Besylate 10 mg 10/10/24 09:00 Amlodipine Besylate 10 Mg Tablet PO DAILY SANGEETA Aspirin 81 mg 10/10/24 09:00 Aspirin 81 Mg Enteric Tablet PO DAILY SANGEETA Carvedilol 12.5 mg 10/10/24 09:00 Carvedilol 12.5 Mg Tablet PO Q12HR SANGEETA Dextrose 12.5 gm 10/09/24 16:07 Dextrose 50% 25 Gm/50 Ml Syringe IV PUSH PRN PRN Hypoglycemia Protocol Doxycycline Hyclate 100 mg 10/09/24 21:00 10/09/24 20:07 Doxycycline Hyclate 100 Mg Tablet PO 100 mg Q12HR SANGEETA Administration Fluticasone/Umeclidinium/Vilanterol 1 puff 10/10/24 08:00 10/10/24 08:02 Fluticasone/Umeclidin/Vilanter 100-62.5-25 Mcg Ellipta INHALATION 1 puff DAILYRT SANGEETA Administration Furosemide 40 mg 10/09/24 21:00 10/09/24 20:07 Furosemide Inj 40 Mg/4 Ml Vial IV PUSH 40 mg Q12HR SANGEETA Administration Glucagon 1 mg 10/09/24 16:07 Glucagon For Inj 1 Mg Vial IM PRN PRN Hypoglycemia Protocol Glucose 15 gm 10/09/24 16:07 Glucose Oral Gel 15 Gm Of Glucse In 37.5 Gm Tube PO PRN PRN Hypoglycemia Protocol Levofloxacin/Dextrose 750 mg in 150 mls @ 100 mls/hr 10/09/24 12:00 10/09/24 12:34 Levaquin 750 Mg/D5w 150 Ml IVPB 100 mls/hr Q48H SANGEETA Administration Dextrose 1,000 mls @ 100 mls/hr 10/09/24 16:07 Dextrose 5% 1,000 Ml IVPB PRN PRN Hypoglycemia Protocol Ceftriaxone Sodium 1 gm in 50 mls @ 100 mls/hr 10/09/24 17:00 10/09/24 17:48 Rocephin 1 Gm/Ns 50 Ml IVPB 100 mls/hr Q24H [facility] Administration Insulin Aspart 2 - 5 units 10/09/24 17:00 10/10/24 08:05 Insulin Aspart (*Bkc) 100 Units/Ml SUB-Q Not Given TIDWM [facility] Protocol Insulin Aspart 1 - 2 units 10/09/24 21:00 10/09/24 20:10 Insulin Aspart (*Bkc) 100 Units/Ml SUB-Q 1 units HS [facility] Administration Protocol Ipratropium [place] 0.5 mg 10/09/24 14:00 10/10/24 07:50 Ipratropium Br 0.02% Inh Soln 0.5 Mg/2.5 Ml Vial INHALATION 0.5 mg Q6HRT [facility] Administration Levothyroxine Sodium 75 mcg 10/10/24 06:30 10/10/24 06:20 Levothyroxine Sodium 75 Mcg Tablet PO 75 mcg DAILY@0630 [facility] Administration Perflutren Lipid Microsphere 0 ml 10/09/24 16:14 Perflutren Lipid Microspheres 1.5 Ml Vial Diluted To 10 Ml Total Volume IV PUSH 10/12/24 16:14 ONCE PRN adequate visualization Protocol Rosuvastatin Calcium 40 mg 10/10/24 09:00 Rosuvastatin 20 Mg Tablet PO DAILY [facility] Sertraline HCl 50 mg 10/10/24 09:00 Sertraline Hcl 50 Mg Tablet PO DAILY [facility] Zolpidem Tartrate 5 mg 10/09/24 23:55 10/10/24 02:28 Zolpidem Tartrate (*Crx) 5 Mg Tablet PO Not Given QHS [facility] Radiology Results: ITS Impressions Chest X-Ray 10/09/24 10:43 IMPRESSION: Bibasilar atelectasis versus pneumonia with pleural effusion more on the right side. Cardiomegaly with cardiac decompensation and pulmonary edema. Labs Labs: Laboratory Results - last 24 hr 10/09/24 10/09/24 10/09/24 10:18 10:22 11:44 WBC 16.3 H RBC 3.96 L Hgb 9.9 L Hct 33.7 L MCV 85.1 MCH 25.0 L MCHC 29.4 L RDW 19.2 H Plt Count 304 MPV 9.5 Immature Gran % (Auto) 0.6 H Neut % (Auto) 81.4 H Lymph % (Auto) 10.0 L [place] % (Auto) 6.0 Eos % (Auto) 1.6 Baso % (Auto) 0.4 Lymph # (Auto) 1.63 [place] # (Auto) 1.0 H Eos # (Auto) 0.3 Baso # (Auto) 0.1 Abs Immat Gran (auto) 0.10 H Absolute Neuts (auto) 13.2 H Absolute Nucleated RBC 0.000 Band Neutrophils % Not Reportable Nucleated RBC % 0.0 Platelet Estimate Adequate Hypochromasia 1+ Anisocytosis 1+ Schistocytes None seen PT 14.4 INR 1.1 APTT 34.9 Puncture Site Right radial Right radial ABG pH 7.232 L* 7.301 L ABG pCO2 47.8 H 45.7 H ABG pO2 104.5 H 59.2 L ABG PO2/FiO2 Ratio 1.74 1.69 ABG HCO3 19.7 L 22.0 ABG O2 Saturation 96.8 88.0 L ABG O2 Content 13.9 L 11.9 L ABG Base Excess -7.6 -4.2 VBG pH VBG pCO2 VBG pO2 VBG HCO3 A-a Gradient 270.7 137.2 Oxyhemoglobin 96.0 87.2 L* Total Hemoglobin 10.2 L 9.7 L O2 Delivery Device Bipap Bipap O2 Liters/Min Not Reportable Not Reportable Vent Rate FiO2 60 35 Expiratory Pressure 6 6 Inspiratory Pressure 12 12 Sodium 144 Potassium 4.0 Chloride 109 H Carbon Dioxide 24 Anion Gap 11 BUN 34 H D Creatinine 1.66 H Estim Creat Clear Calc 40 Estimated GFR 41 L Glucose 183 H POC Capillary Glucose Hemoglobin A1c Lactic Acid Calcium 8.6 Magnesium 2.3 Total Bilirubin 0.4 AST 65 H ALT 83 H Alkaline Phosphatase 269 H Troponin I 0.799 H* NT-Pro-B Natriuret Pep 8820 H Total Protein 7.0 Albumin 3.9 TSH (Reflex) Free T4 Nasal MRSA (PCR) Influenza A (RT-PCR) Influenza B (RT-PCR) RSV (RT-PCR) SARS-CoV-2 RNA (RT-PCR) 10/09/24 10/09/24 10/09/24 11:45 14:49 17:05 WBC RBC Hgb Hct MCV MCH MCHC RDW Plt Count MPV Immature Gran % (Auto) Neut % (Auto) Lymph % (Auto) [place] % (Auto) Eos % (Auto) Baso % (Auto) Lymph # (Auto) [place] # (Auto) Eos # (Auto) Baso # (Auto) Abs Immat Gran (auto) Absolute Neuts (auto) Absolute Nucleated RBC Band Neutrophils % Nucleated RBC % Platelet Estimate Hypochromasia Anisocytosis Schistocytes PT INR APTT Puncture Site ABG pH ABG pCO2 ABG pO2 ABG PO2/FiO2 Ratio ABG HCO3 ABG O2 Saturation ABG O2 Content ABG Base Excess VBG pH VBG pCO2 VBG pO2 VBG HCO3 A-a Gradient Oxyhemoglobin Total Hemoglobin O2 Delivery Device O2 Liters/Min Vent Rate FiO2 Expiratory Pressure Inspiratory Pressure Sodium Potassium Chloride Carbon Dioxide Anion Gap BUN Creatinine Estim Creat Clear Calc Estimated GFR Glucose POC Capillary Glucose 145 H Hemoglobin A1c Lactic Acid 0.7 Calcium Magnesium Total Bilirubin AST ALT Alkaline Phosphatase Troponin I 0.622 H* D NT-Pro-B Natriuret Pep Total Protein Albumin TSH (Reflex) Free T4 Nasal MRSA (PCR) Influenza A (RT-PCR) Influenza B (RT-PCR) RSV (RT-PCR) SARS-CoV-2 RNA (RT-PCR) 10/09/24 10/09/24 10/09/24 17:12 18:12 19:50 WBC RBC Hgb Hct MCV MCH MCHC RDW Plt Count MPV Immature Gran % (Auto) Neut % (Auto) Lymph % (Auto) [place] % (Auto) Eos % (Auto) Baso % (Auto) Lymph # (Auto) [place] # (Auto) Eos # (Auto) Baso # (Auto) Abs Immat Gran (auto) Absolute Neuts (auto) Absolute Nucleated RBC Band Neutrophils % Nucleated RBC % Platelet Estimate Hypochromasia Anisocytosis Schistocytes PT INR APTT Puncture Site ABG pH ABG pCO2 ABG pO2 ABG PO2/FiO2 Ratio ABG HCO3 ABG O2 Saturation ABG O2 Content ABG Base Excess VBG pH VBG pCO2 VBG pO2 VBG HCO3 A-a Gradient Oxyhemoglobin Total Hemoglobin O2 Delivery Device O2 Liters/Min Vent Rate FiO2 Expiratory Pressure Inspiratory Pressure Sodium Potassium Chloride Carbon Dioxide Anion Gap BUN Creatinine Estim Creat Clear Calc Estimated GFR Glucose POC Capillary Glucose 272 H Hemoglobin A1c 5.9 H Lactic Acid Calcium Magnesium Total Bilirubin AST ALT Alkaline Phosphatase Troponin I 0.617 H* NT-Pro-B Natriuret Pep Total Protein Albumin TSH (Reflex) Free T4 Nasal MRSA (PCR) Not detected Influenza A (RT-PCR) Negative Influenza B (RT-PCR) Negative RSV (RT-PCR) Negative SARS-CoV-2 RNA (RT-PCR) Negative 10/10/24 10/10/24 03:51 04:17 WBC 8.7 RBC 3.30 L Hgb 8.3 L Hct 27.8 L MCV 84.2 MCH 25.2 L MCHC 29.9 L RDW 19.1 H Plt Count 233 MPV 9.6 Immature Gran % (Auto) Neut % (Auto) Lymph % (Auto) [place] % (Auto) Eos % (Auto) Baso % (Auto) Lymph # (Auto) [place] # (Auto) Eos # (Auto) Baso # (Auto) Abs Immat Gran (auto) Absolute Neuts (auto) Absolute Nucleated RBC Band Neutrophils % Nucleated RBC % Platelet Estimate Hypochromasia Anisocytosis Schistocytes PT INR APTT Puncture Site ABG pH ABG pCO2 ABG pO2 ABG PO2/FiO2 Ratio ABG HCO3 ABG O2 Saturation ABG O2 Content ABG Base Excess VBG pH 7.374 VBG pCO2 37.5 L VBG pO2 43.7 VBG HCO3 21.4 L A-a Gradient Oxyhemoglobin Total Hemoglobin O2 Delivery Device Non-invasive vent O2 Liters/Min Not Reportable Vent Rate 22 FiO2 35 Expiratory Pressure 5 Inspiratory Pressure 12 Sodium 139 Potassium 4.4 Chloride 107 Carbon Dioxide 22 Anion Gap 10 BUN 39 H Creatinine 1.55 H Estim Creat Clear Calc 41 Estimated GFR 44 L Glucose 121 H POC Capillary Glucose Hemoglobin A1c Lactic Acid Calcium 8.2 L Magnesium 2.1 Total Bilirubin 0.2 AST 21 ALT 53 H Alkaline Phosphatase 199 H Troponin I NT-Pro-B Natriuret Pep Total Protein 6.0 L Albumin 3.1 L TSH (Reflex) 4.550 Free T4 0.69 L Nasal MRSA (PCR) Influenza A (RT-PCR) Influenza B (RT-PCR) RSV (RT-PCR) SARS-CoV-2 RNA (RT-PCR)
[2024-10-10 08:12] LABS: Glucose Point of Care 132 mg/dl (65-105)
[2024-10-10] MEDS: ROSUVASTATIN 20 MG TABLET 40 MG PO (08:37)
[2024-10-10] MEDS: ASPIRIN 81 MG ENTERIC TABLET PO (08:37)
[2024-10-10] MEDS: FUROSEMIDE INJ 40 MG/4 ML VIAL IV PUSH ×2 (08:38→20:58)
[2024-10-10] MEDS: DOXYCYCLINE HYCLATE 100 MG TABLET PO ×2 (08:38→20:58)
[2024-10-10] MEDS: SERTRALINE HCL 50 MG TABLET PO (08:38)
[2024-10-10] MEDS: carvediloL 12.5 MG TABLET PO ×2 (08:38→20:59)
[2024-10-10] MEDS: amLODIPine BESYLATE 10 MG TABLET PO (08:43)
--- NOTE | 2024-10-10 11:30 | PM.IMPN ---
Progress Note: A&P Assessment and Plan (1) Acute respiratory failure with hypoxia and hypercapnia: Code(s): J96.01 - Acute respiratory failure with hypoxia; J96.02 - Acute respiratory failure with hypercapnia Status: Acute Assessment and Plan: RSV COVID influenza negative Chronic smoker 1 ppd for 50 years Never had a pulmonology workup as Ob Denies any cardiac history Echo ordered Frequent COPD exacerbation Denies using home oxygen Continue levofloxacin 750 mg p.o. q.48h until 0 10/15 Continue doxycycline 100 mg p.o. b.i.d. Continue ipratropium and albuterol Continue Trelegy Ellipta Consult pulmonology and appreciate recommendation (2) Non-ST elevation myocardial infarction (NSTEMI): Code(s): I21.4 - Non-ST elevation (NSTEMI) myocardial infarction Status: Acute Assessment and Plan: Pending echo (3) Combined systolic and diastolic cardiac dysfunction: Code(s): I51.89 - Other ill-defined heart diseases Status: Acute Assessment and Plan: As above (4) Chronic obstructive pulmonary disease: Qualifiers: COPD type: emphysema Emphysema type: unspecified Qualified Code(s): J43.9 - Emphysema, unspecified Code(s): J44.9 - Chronic obstructive pulmonary disease, unspecified Status: Chronic Assessment and Plan: As above (5) Chronic kidney disease: Code(s): N18.9 - Chronic kidney disease, unspecified Status: Acute Assessment and Plan: Avoiding nephrotoxic drugs Monitor closely during dialysis Avoid NSAIDs Continue monitoring creatinine and BUN Baseline creatinine around 1.5 Follow-up nephrology as an outpatient (6) Hypertension: Qualifiers: Hypertension type: primary hypertension Qualified Code(s): I10 - Essential (primary) hypertension Code(s): I10 - Essential (primary) hypertension Status: Acute (7) Type 2 diabetes mellitus: Qualifiers: Diabetes mellitus complication status: with other specified complication Diabetes mellitus termite treater insulin use: without senior living use Qualified Code(s): E11.69 - Type 2 diabetes mellitus with other specified complication Code(s): E11.9 - Type 2 diabetes mellitus without complications Status: Acute (8) Hypothyroidism: Qualifiers: Hypothyroidism type: acquired Qualified Code(s): E03.9 - Hypothyroidism, unspecified Code(s): E03.9 - Hypothyroidism, unspecified Status: Acute (9) Mixed hyperlipidemia: Code(s): E78.2 - Mixed hyperlipidemia Status: Acute (10) Peripheral vascular disease: Code(s): I73.9 - Peripheral vascular disease, unspecified Status: Acute (11) Chronic anemia: Code(s): D64.9 - Anemia, unspecified Status: Acute (12) Obstructive sleep apnea: Code(s): G47.33 - Obstructive sleep apnea (adult) (pediatric) Status: Acute Subjective Date/time seen: 10/10/24 11:30 Interval history: As per patient he is a chronic smoker for 50 years 1 ppd and he quit smoking 3 weeks ago. Patient was using CPAP previously. Patient never seen a chief deputy coroner or underwent PFTs before. Patient has a appointment December 2024 with the chief deputy coroner but unfortunately he had worsened shortness of breath and came to ED.Cardiology evaluate the patient for the chest pain. As per cardiology according to the ECHO results then would order V/Q scan as per Cardiology. Patient wants to see a chief deputy coroner. Exam Narrative: General: Mildly ill-appearing male sitting at the side of the bed on BiPAP in no distress. Weight: 87.5 kg. BMI: 30.2. HEENT: PERRL, EOMI. Sclera anicteric. Mucous membranes appear tacky through the BiPAP mask. Neck: Supple. No significant JVD. Respiratory: On BiPAP, able to speak freely through the mask. Lung sounds are diminished throughout with scattered crackles. Cardiovascular: Regular rate and rhythm with occasional ectopy. Soft systolic murmur at the left sternal border. Gastrointestinal: Abdomen is soft, nontender, and nondistended with positive bowel sounds. Skin: Warm and dry. Generalized pallor. Extremities: No cyanosis or clubbing. Pitting edema of the lower legs. Radial pulses palpable. Pedal pulses diminished. Neurological: Alert and oriented. Cranial nerves 2-12 are grossly intact. No gross focal deficits to casual conversation. Psychiatric: Pleasant and cooperative with appropriate mood and affect. Objective Data Vital Signs Vital Signs: Vital Signs - 24 hr 10/09/24 11:31 10/09/24 11:59 10/09/24 12:01 Temperature Pulse Rate 60 56 L 55 L Respiratory Rate 22 H 19 20 Blood Pressure 122/70 139/62 Pulse Oximetry 95 95 92 Oxygen Delivery BiPAP Oxygen Flow Rate Fraction of Inspired Oxygen 10/09/24 12:30 10/09/24 12:45 10/09/24 13:00 Temperature Pulse Rate 59 L 54 L 50 L Respiratory Rate 20 19 17 Blood Pressure 137/70 135/67 130/61 Pulse Oximetry 94 95 96 Oxygen Delivery Oxygen Flow Rate Fraction of Inspired Oxygen 10/09/24 13:15 10/09/24 13:40 10/09/24 13:55 Temperature Pulse Rate 53 L 64 60 Respiratory Rate 19 28 H Blood Pressure 130/67 Pulse Oximetry 100 96 Oxygen Delivery BiPAP Oxygen Flow Rate Fraction of Inspired Oxygen 10/09/24 13:56 10/09/24 14:00 10/09/24 14:37 Temperature 97.4 F L Pulse Rate 63 63 74 Respiratory Rate 22 H 26 H Blood Pressure 161/61 H Pulse Oximetry 100 Oxygen Delivery Oxygen Flow Rate Fraction of Inspired Oxygen 10/09/24 16:00 10/09/24 16:00 10/09/24 18:00 Temperature 98 F Pulse Rate 61 65 75 Respiratory Rate 24 H Blood Pressure 167/56 H Pulse Oximetry 98 Oxygen Delivery Oxygen Flow Rate Fraction of Inspired Oxygen 10/09/24 19:58 10/09/24 20:00 10/09/24 20:00 Temperature 98.2 F Pulse Rate 62 64 Respiratory Rate 23 H Blood Pressure 142/67 H Pulse Oximetry 100 98 Oxygen Delivery Nasal Cannula Oxygen Flow Rate 3 Fraction of Inspired Oxygen 10/09/24 20:08 10/09/24 20:10 10/09/24 20:25 Temperature Pulse Rate 64 64 68 Respiratory Rate 26 H 26 H 26 H Blood Pressure Pulse Oximetry 100 Oxygen Delivery BiPAP Oxygen Flow Rate Fraction of Inspired Oxygen 10/09/24 22:00 10/10/24 00:00 10/10/24 00:00 Temperature 98 F Pulse Rate 57 L 68 Respiratory Rate 22 H Blood Pressure 131/73 Pulse Oximetry 100 100 Oxygen Delivery BiPAP Oxygen Flow Rate Fraction of Inspired Oxygen 60 10/10/24 00:00 10/10/24 02:00 10/10/24 02:22 Temperature Pulse Rate 56 L 65 59 L Respiratory Rate 24 H Blood Pressure Pulse Oximetry Oxygen Delivery Oxygen Flow Rate Fraction of Inspired Oxygen 10/10/24 02:23 10/10/24 02:33 10/10/24 03:50 Temperature Pulse Rate 59 L 61 Respiratory Rate 24 H 24 H Blood Pressure Pulse Oximetry 96 96 Oxygen Delivery BiPAP BiPAP Oxygen Flow Rate Fraction of Inspired Oxygen 60 10/10/24 04:00 10/10/24 04:00 10/10/24 05:45 Temperature 97.5 F L Pulse Rate 60 62 60 Respiratory Rate 22 H 24 H Blood Pressure 141/69 H Pulse Oximetry 97 97 Oxygen Delivery BiPAP Oxygen Flow Rate Fraction of Inspired Oxygen 10/10/24 06:00 10/10/24 07:37 10/10/24 07:50 Temperature 98 F Pulse Rate 60 65 62 Respiratory Rate 20 22 H Blood Pressure 157/83 H Pulse Oximetry 91 Oxygen Delivery Oxygen Flow Rate Fraction of Inspired Oxygen 10/10/24 07:50 10/10/24 08:00 10/10/24 08:00 Temperature Pulse Rate 62 Respiratory Rate Blood Pressure Pulse Oximetry 96 98 Oxygen Delivery Nasal Cannula Nasal Cannula Oxygen Flow Rate 3 2 Fraction of Inspired Oxygen 32 10/10/24 08:04 10/10/24 08:38 10/10/24 10:00 Temperature Pulse Rate 63 64 56 L Respiratory Rate 20 Blood Pressure Pulse Oximetry Oxygen Delivery Oxygen Flow Rate Fraction of Inspired Oxygen Intake/Output Intake/Output: Intake & Output 10/07/24 10/08/24 10/09/24 10/10/24 23:59 23:59 23:59 23:59 Intake Total 440 540 Output Total 1450 500 Balance -1010 40 Meds/Results Medications: Active Medications Generic Name Dose Route Start Last Admin Trade Name Freq PRN Reason Stop Dose Admin Acetaminophen 650 mg 10/09/24 12:13 Acetaminophen 325 Mg Tablet PO Q4H PRN Mild Pain (1-3) or Fever Albuterol 2.5 mg 10/09/24 14:00 10/10/24 07:50 Albuterol Sulfate Neb 2.5 Mg/3 Ml Inh INHALATION 2.5 mg Q6HRT SANGEETA Administration Amlodipine Besylate 10 mg 10/10/24 09:00 10/10/24 08:43 Amlodipine Besylate 10 Mg Tablet PO 10 mg DAILY SANGEETA Administration Aspirin 81 mg 10/10/24 09:00 10/10/24 08:37 Aspirin 81 Mg Enteric Tablet PO 81 mg DAILY SANGEETA Administration Carvedilol 12.5 mg 10/10/24 09:00 10/10/24 08:38 Carvedilol 12.5 Mg Tablet PO 12.5 mg Q12HR SANGEETA Administration Dextrose 12.5 gm 10/09/24 16:07 Dextrose 50% 25 Gm/50 Ml Syringe IV PUSH PRN PRN Hypoglycemia Protocol Doxycycline Hyclate 100 mg 10/09/24 21:00 10/10/24 08:38 Doxycycline Hyclate 100 Mg Tablet PO 100 mg Q12HR SANGEETA Administration Fluticasone/Umeclidinium/Vilanterol 1 puff 10/10/24 08:00 10/10/24 08:02 Fluticasone/Umeclidin/Vilanter 100-62.5-25 Mcg Ellipta INHALATION 1 puff DAILYRT SANGEETA Administration Furosemide 40 mg 10/09/24 21:00 10/10/24 08:38 Furosemide Inj 40 Mg/4 Ml Vial IV PUSH 40 mg Q12HR SANGEETA Administration Glucagon 1 mg 10/09/24 16:07 Glucagon For Inj 1 Mg Vial IM PRN PRN Hypoglycemia Protocol Glucose 15 gm 10/09/24 16:07 Glucose Oral Gel 15 Gm Of Glucse In 37.5 Gm Tube PO PRN PRN Hypoglycemia Protocol Dextrose 1,000 mls @ 100 mls/hr 10/09/24 16:07 Dextrose 5% 1,000 Ml IVPB PRN PRN Hypoglycemia Protocol Insulin Aspart 2 - 5 units 10/09/24 17:00 10/10/24 08:05 Insulin Aspart (*Bkc) 100 Units/Ml SUB-Q Not Given TIDWM SANGEETA Protocol Insulin Aspart 1 - 2 units 10/09/24 21:00 10/09/24 20:10 Insulin Aspart (*Bkc) 100 Units/Ml SUB-Q 1 units HS SANGEETA Administration Protocol Ipratropium [place] 0.5 mg 10/09/24 14:00 10/10/24 07:50 Ipratropium Br 0.02% Inh Soln 0.5 Mg/2.5 Ml Vial INHALATION 0.5 mg Q6HRT SANGEETA Administration Levofloxacin 750 mg 10/11/24 12:00 Levofloxacin 750 Mg Tablet PO 10/15/24 12:01 Q48H SANGEETA Levothyroxine Sodium 75 mcg 10/10/24 06:30 10/10/24 06:20 Levothyroxine Sodium 75 Mcg Tablet PO 75 mcg DAILY@0630 SANGEETA Administration Perflutren Lipid Microsphere 0 ml 10/09/24 16:14 Perflutren Lipid Microspheres 1.5 Ml Vial Diluted To 10 Ml Total Volume IV PUSH 10/12/24 16:14 ONCE PRN adequate visualization Protocol Rosuvastatin Calcium 40 mg 10/10/24 09:00 10/10/24 08:37 Rosuvastatin 20 Mg Tablet PO 40 mg DAILY SANGEETA Administration Sertraline HCl 50 mg 10/10/24 09:00 10/10/24 08:38 Sertraline Hcl 50 Mg Tablet PO 50 mg DAILY SANGEETA Administration Zolpidem Tartrate 5 mg 10/09/24 23:55 10/10/24 02:28 Zolpidem Tartrate (*Crx) 5 Mg Tablet PO Not Given QHS [facility] Radiology Results: ITS Impressions Chest X-Ray 10/09/24 10:43 IMPRESSION: Bibasilar atelectasis versus pneumonia with pleural effusion more on the right side. Cardiomegaly with cardiac decompensation and pulmonary edema. Venous Doppler Study 10/10/24 08:53 IMPRESSION: 1. No deep venous thrombosis. Labs Labs: Laboratory Results - last 24 hr 10/09/24 10/09/24 10/09/24 11:44 11:45 14:49 WBC RBC Hgb Hct MCV MCH MCHC RDW Plt Count MPV Puncture Site Right radial ABG pH 7.301 L ABG pCO2 45.7 H ABG pO2 59.2 L ABG PO2/FiO2 Ratio 1.69 ABG HCO3 22.0 ABG O2 Saturation 88.0 L ABG O2 Content 11.9 L ABG Base Excess -4.2 VBG pH VBG pCO2 VBG pO2 VBG HCO3 A-a Gradient 137.2 Oxyhemoglobin 87.2 L* Total Hemoglobin 9.7 L O2 Delivery Device Bipap O2 Liters/Min Not Reportable Vent Rate FiO2 35 Expiratory Pressure 6 Inspiratory Pressure 12 Sodium Potassium Chloride Carbon Dioxide Anion Gap BUN Creatinine Estim Creat Clear Calc Estimated GFR Glucose POC Capillary Glucose Hemoglobin A1c Lactic Acid 0.7 Calcium Magnesium Total Bilirubin AST ALT Alkaline Phosphatase Troponin I 0.622 H* D Total Protein Albumin TSH (Reflex) Free T4 Nasal MRSA (PCR) Influenza A (RT-PCR) Influenza B (RT-PCR) RSV (RT-PCR) SARS-CoV-2 RNA (RT-PCR) 10/09/24 10/09/24 10/09/24 17:05 17:12 18:12 WBC RBC Hgb Hct MCV MCH MCHC RDW Plt Count MPV Puncture Site ABG pH ABG pCO2 ABG pO2 ABG PO2/FiO2 Ratio ABG HCO3 ABG O2 Saturation ABG O2 Content ABG Base Excess VBG pH VBG pCO2 VBG pO2 VBG HCO3 A-a Gradient Oxyhemoglobin Total Hemoglobin O2 Delivery Device O2 Liters/Min Vent Rate FiO2 Expiratory Pressure Inspiratory Pressure Sodium Potassium Chloride Carbon Dioxide Anion Gap BUN Creatinine Estim Creat Clear Calc Estimated GFR Glucose POC Capillary Glucose 145 H Hemoglobin A1c 5.9 H Lactic Acid Calcium Magnesium Total Bilirubin AST ALT Alkaline Phosphatase Troponin I 0.617 H* Total Protein Albumin TSH (Reflex) Free T4 Nasal MRSA (PCR) Not detected Influenza A (RT-PCR) Negative Influenza B (RT-PCR) Negative RSV (RT-PCR) Negative SARS-CoV-2 RNA (RT-PCR) Negative 10/09/24 10/10/24 10/10/24 19:50 03:51 04:17 WBC 8.7 RBC 3.30 L Hgb 8.3 L Hct 27.8 L MCV 84.2 MCH 25.2 L MCHC 29.9 L RDW 19.1 H Plt Count 233 MPV 9.6 Puncture Site ABG pH ABG pCO2 ABG pO2 ABG PO2/FiO2 Ratio ABG HCO3 ABG O2 Saturation ABG O2 Content ABG Base Excess VBG pH 7.374 VBG pCO2 37.5 L VBG pO2 43.7 VBG HCO3 21.4 L A-a Gradient Oxyhemoglobin Total Hemoglobin O2 Delivery Device Non-invasive vent O2 Liters/Min Not Reportable Vent Rate 22 FiO2 35 Expiratory Pressure 5 Inspiratory Pressure 12 Sodium 139 Potassium 4.4 Chloride 107 Carbon Dioxide 22 Anion Gap 10 BUN 39 H Creatinine 1.55 H Estim Creat Clear Calc 41 Estimated GFR 44 L Glucose 121 H POC Capillary Glucose 272 H Hemoglobin A1c Lactic Acid Calcium 8.2 L Magnesium 2.1 Total Bilirubin 0.2 AST 21 ALT 53 H Alkaline Phosphatase 199 H Troponin I Total Protein 6.0 L Albumin 3.1 L TSH (Reflex) 4.550 Free T4 0.69 L Nasal MRSA (PCR) Influenza A (RT-PCR) Influenza B (RT-PCR) RSV (RT-PCR) SARS-CoV-2 RNA (RT-PCR) 10/10/24 07:39 WBC RBC Hgb Hct MCV MCH MCHC RDW Plt Count MPV Puncture Site ABG pH ABG pCO2 ABG pO2 ABG PO2/FiO2 Ratio ABG HCO3 ABG O2 Saturation ABG O2 Content ABG Base Excess VBG pH VBG pCO2 VBG pO2 VBG HCO3 A-a Gradient Oxyhemoglobin Total Hemoglobin O2 Delivery Device O2 Liters/Min Vent Rate FiO2 Expiratory Pressure Inspiratory Pressure Sodium Potassium Chloride Carbon Dioxide Anion Gap BUN Creatinine Estim Creat Clear Calc Estimated GFR Glucose POC Capillary Glucose 132 H Hemoglobin A1c Lactic Acid Calcium Magnesium Total Bilirubin AST ALT Alkaline Phosphatase Troponin I Total Protein Albumin TSH (Reflex) Free T4 Nasal MRSA (PCR) Influenza A (RT-PCR) Influenza B (RT-PCR) RSV (RT-PCR) SARS-CoV-2 RNA (RT-PCR) Hospitalist MIPS Advance Care Plan I have confirmed that the patient's Advanced Care Plan is present, code status is documented, or surrogate decision maker is listed in patient medical record.: Yes Medication Reconciliation I have utilized all available resources to obtain, update and review the patients current medications (includes all prescriptions, OTC, herbals, cannabis, and nutritional supplements).: Yes
[2024-10-10 11:55] LABS: Glucose Point of Care 184 mg/dl (65-105)
[2024-10-10] MEDS: IPRATROPIUM 0.5 MG/ALBUTEROL SULFATE 2.5 MG AMPUL.NEB 3 ML INHALATION ×2 (13:41→20:58)
--- NOTE | 2024-10-10 14:54 | PC.NURSE ---
Addendum entered by Rosa Morel RN 10/10/24 14:57: Pt stable, comfortable, BIPAP machine brought to room. Pt sitting up in a chair at bedside. No complaints. Original Note: Received report from IMU nurse. Pt transferred into room 251.n
[2024-10-10 16:32] LABS: Glucose Point of Care 95 mg/dl (65-105)
[2024-10-10 20:33] LABS: Glucose Point of Care 107 mg/dl (65-105)
[2024-10-10] MEDS: ZOLPIDEM TARTRATE (*CRX) 5 MG TABLET PO (20:58)
[2024-10-11] VITALS (23 sets, daily range): BP systolic 115–139; BP diastolic 49–63; PULSE 49–65; RESP 16–25; TEMP 36.3–36.9; O2SAT 90–98
[2024-10-11] MEDS: IPRATROPIUM 0.5 MG/ALBUTEROL SULFATE 2.5 MG AMPUL.NEB 3 ML INHALATION ×4 (03:03→19:56)
[2024-10-11] MEDS: LEVOTHYROXINE SODIUM 75 MCG TABLET PO (05:50)
[2024-10-11] MEDS: FLUTICASONE/UMECLIDIN/VILANTER 100-62.5-25 MCG ELLIPTA 1 PUFF INHALATION (07:35)
--- NOTE | 2024-10-11 08:04 | PM.PNCARD ---
Progress Note: A&P Assessment and Plan (1) Combined systolic and diastolic cardiac dysfunction: Code(s): I51.89 - Other ill-defined heart diseases Status: Acute Assessment and Plan: Improving only mild systolic dysfunction. Probably more acute on chronic diastolic heart failure. NTproBNP 8,820. 10/10/24 Echo: EF 45-50%, mod LVE, diastolic dysfunction (E/e' 15), severe LAE, mild KAVITHA, mild MR. On Lasix 40 mg IV BID. (2) Elevated troponin: Code(s): R79.89 - Other specified abnormal findings of blood chemistry Status: Acute Assessment and Plan: Peaked at 0.799 and trending down 0.6217. Probably due to pneumonia and/or CHF. (3) Tobacco abuse: Code(s): Z72.0 - Tobacco use Status: Acute Assessment and Plan: Counseled regarding smoking cessation. (4) Mixed hyperlipidemia: Code(s): E78.2 - Mixed hyperlipidemia Status: Acute Assessment and Plan: On Rosuvastatin. (5) Essential (primary) hypertension: Code(s): I10 - Essential (primary) hypertension Status: Acute Assessment and Plan: Stable. (6) Peripheral vascular disease: Code(s): I73.9 - Peripheral vascular disease, unspecified Status: Acute Assessment and Plan: Stable. (7) Pneumonia: Code(s): J18.9 - Pneumonia, unspecified organism Status: Acute Assessment and Plan: On antibiotics. (8) Chronic obstructive pulmonary disease: Qualifiers: COPD type: emphysema Emphysema type: unspecified Qualified Code(s): J43.9 - Emphysema, unspecified Code(s): J44.9 - Chronic obstructive pulmonary disease, unspecified Status: Chronic Assessment and Plan: On Nebs and BiPAP. Subjective Date/time seen: 10/11/24 08:04 Interval history: Reports breathing improving. No chest pains. Exam Const: General: cooperative, healthy appearing and comfortable Orientation/consciousness: oriented to person, oriented to place and oriented to time Resp: Auscultation: clear to auscultation bilaterally, no crackles, no rales, no rhonchi, no wheezes and diminished lung sounds Other: Coarse breath sounds Cardio: Rate: regular rate Rhythm: regular rhythm Heart sounds: no murmurs Peripheral pulses: dorsalis pedis present Neuro: General: oriented to person, oriented to place and oriented to time Extrem: Right lower extremity: edema Left lower extremity: edema Other: Mild ankle edema bilaterally Objective Data Vital Signs Vital Signs: Vital Signs - 24 hr 10/10/24 08:38 10/10/24 10:00 10/10/24 13:42 Temperature Pulse Rate 64 56 L Respiratory Rate Blood Pressure Pulse Oximetry 96 Oxygen Delivery Nasal Cannula Oxygen Flow Rate 2 Fraction of Inspired Oxygen 28 10/10/24 13:42 10/10/24 13:51 10/10/24 16:00 Temperature 97.5 F L Pulse Rate 57 L 54 L 53 L Respiratory Rate 20 20 20 Blood Pressure 127/64 Pulse Oximetry 100 Oxygen Delivery Oxygen Flow Rate Fraction of Inspired Oxygen 10/10/24 16:00 10/10/24 20:00 10/10/24 20:00 Temperature 97.7 F Pulse Rate 53 L 58 L Respiratory Rate 16 Blood Pressure 140/50 L Pulse Oximetry 96 96 Oxygen Delivery Nasal Cannula Oxygen Flow Rate 2 Fraction of Inspired Oxygen 10/10/24 20:00 10/10/24 20:59 10/10/24 20:59 Temperature Pulse Rate 60 56 L 60 Respiratory Rate 20 Blood Pressure Pulse Oximetry Oxygen Delivery Oxygen Flow Rate Fraction of Inspired Oxygen 10/10/24 21:08 10/10/24 21:10 10/10/24 22:34 Temperature Pulse Rate 56 L 55 L 54 L Respiratory Rate 20 23 H Blood Pressure Pulse Oximetry 96 98 Oxygen Delivery Nasal Cannula BiPAP Oxygen Flow Rate 2 Fraction of Inspired Oxygen 10/10/24 23:37 10/11/24 00:00 10/11/24 03:03 Temperature 98.3 F Pulse Rate 55 L 53 L 53 L Respiratory Rate 18 25 H Blood Pressure 108/56 L Pulse Oximetry 99 Oxygen Delivery Oxygen Flow Rate Fraction of Inspired Oxygen 10/11/24 03:03 10/11/24 03:18 10/11/24 03:34 Temperature 98.3 F Pulse Rate 53 L 65 51 L Respiratory Rate 25 H 17 21 H Blood Pressure 139/63 Pulse Oximetry 96 98 Oxygen Delivery BiPAP Oxygen Flow Rate Fraction of Inspired Oxygen 10/11/24 04:00 10/11/24 07:36 10/11/24 07:36 Temperature Pulse Rate 49 L 54 L Respiratory Rate 20 Blood Pressure Pulse Oximetry 94 Oxygen Delivery Nasal Cannula Oxygen Flow Rate 1 Fraction of Inspired Oxygen 10/11/24 07:47 Temperature Pulse Rate 55 L Respiratory Rate 20 Blood Pressure Pulse Oximetry Oxygen Delivery Oxygen Flow Rate Fraction of Inspired Oxygen Intake/Output Intake/Output: Intake & Output 10/08/24 10/09/24 10/10/24 10/11/24 23:59 23:59 23:59 23:59 Intake Total 640 950 150 Output Total 1450 1100 Balance -810 -150 150 Meds/Results Medications: Active Medications Generic Name Dose Route Start Last Admin Trade Name Freq PRN Reason Stop Dose Admin Acetaminophen 650 mg 10/09/24 12:13 Acetaminophen 325 Mg Tablet PO Q4H PRN Mild Pain (1-3) or Fever Albuterol/Ipratropium 3 ml 10/10/24 14:00 10/11/24 07:35 Ipratropium 0.5 Mg/Albuterol Sulfate 2.5 Mg Ampul.Neb 3 Ml INHALATION 3 ml Q6HRT SANGEETA Administration Amlodipine Besylate 10 mg 10/10/24 09:00 10/10/24 08:43 Amlodipine Besylate 10 Mg Tablet PO 10 mg DAILY SANGEETA Administration Aspirin 81 mg 10/10/24 09:00 10/10/24 08:37 Aspirin 81 Mg Enteric Tablet PO 81 mg DAILY SANGEETA Administration Carvedilol 12.5 mg 10/10/24 09:00 10/10/24 20:59 Carvedilol 12.5 Mg Tablet PO 12.5 mg Q12HR SANGEETA Administration Dextrose 12.5 gm 10/09/24 16:07 Dextrose 50% 25 Gm/50 Ml Syringe IV PUSH PRN PRN Hypoglycemia Protocol Doxycycline Hyclate 100 mg 10/09/24 21:00 10/10/24 20:58 Doxycycline Hyclate 100 Mg Tablet PO 100 mg Q12HR SANGEETA Administration Fluticasone/Umeclidinium/Vilanterol 1 puff 10/10/24 08:00 10/11/24 07:35 Fluticasone/Umeclidin/Vilanter 100-62.5-25 Mcg Ellipta INHALATION 1 puff DAILYRT SANGEETA Administration Furosemide 40 mg 10/09/24 21:00 10/10/24 20:58 Furosemide Inj 40 Mg/4 Ml Vial IV PUSH 40 mg Q12HR SANGEETA Administration Glucagon 1 mg 10/09/24 16:07 Glucagon For Inj 1 Mg Vial IM PRN PRN Hypoglycemia Protocol Glucose 15 gm 10/09/24 16:07 Glucose Oral Gel 15 Gm Of Glucse In 37.5 Gm Tube PO PRN PRN Hypoglycemia Protocol Dextrose 1,000 mls @ 100 mls/hr 10/09/24 16:07 Dextrose 5% 1,000 Ml IVPB PRN PRN Hypoglycemia Protocol Insulin Aspart 2 - 5 units 10/09/24 17:00 10/10/24 17:38 Insulin Aspart (*Bkc) 100 Units/Ml SUB-Q Not Given TIDWM SANGEETA Protocol Insulin Aspart 1 - 2 units 10/09/24 21:00 10/10/24 20:59 Insulin Aspart (*Bkc) 100 Units/Ml SUB-Q Not Given HS SANGEETA Protocol Levofloxacin 750 mg 10/11/24 12:00 Levofloxacin 750 Mg Tablet PO 10/15/24 12:01 Q48H SANGEETA Levothyroxine Sodium 75 mcg 10/10/24 06:30 10/11/24 05:50 Levothyroxine Sodium 75 Mcg Tablet PO 75 mcg DAILY@0630 SANGEETA Administration Perflutren Lipid Microsphere 0 ml 10/09/24 16:14 Perflutren Lipid Microspheres 1.5 Ml Vial Diluted To 10 Ml Total Volume IV PUSH 10/12/24 16:14 ONCE PRN adequate visualization Protocol Rosuvastatin Calcium 40 mg 10/10/24 09:00 10/10/24 08:37 Rosuvastatin 20 Mg Tablet PO 40 mg DAILY SANGEETA Administration Sertraline HCl 50 mg 10/10/24 09:00 10/10/24 08:38 Sertraline Hcl 50 Mg Tablet PO 50 mg DAILY SANGEETA Administration Zolpidem Tartrate 5 mg 10/09/24 23:55 10/10/24 20:58 Zolpidem Tartrate (*Crx) 5 Mg Tablet PO 5 mg QHS SANGEETA Administration Radiology Results: ITS Impressions Chest X-Ray 10/09/24 10:43 IMPRESSION: Bibasilar atelectasis versus pneumonia with pleural effusion more on the right side. Cardiomegaly with cardiac decompensation and pulmonary edema. Venous Doppler Study 10/10/24 08:53 IMPRESSION: 1. No deep venous thrombosis. Labs Labs: Laboratory Results - last 24 hr 10/10/24 10/10/24 10/10/24 07:39 11:46 16:25 POC Capillary Glucose 132 H 184 H 95 10/10/24 20:28 POC Capillary Glucose 107 H
[2024-10-11 08:11] LABS: Glucose Point of Care 84 mg/dl (65-105)
[2024-10-11 08:15] LABS: Hematocrit 28.8 % (42.0-52.0); Hemoglobin 8.8 g/dL (14.0-18.0); Mean Corpuscular HGB Conc 30.6 g/dl (32-36); Mean Corpuscular Hemoglobin 25.4 pg (26-34); Mean Platelet Volume 9.2 fl (7.4-10.4); Platelet Count Result 255 k/mm3 (150-375); Red Blood Count 3.47 M/mm3 (4.6-6.20); Red Cell Distribution Width 19.3 % (11.5-14.5)
[2024-10-11 08:40] LABS: Alanine Aminotransferase 44 U/L (6-50); Albumin Level 3.3 g/dL (3.5-5.1); Alkaline Phosphatase 182 U/L (38-126); Anion Gap 4 mmol/L (4-12); Aspartate Amino Transferase 21 U/L (17-59); Bilirubin,Total 0.3 mg/dL (0.2-1.3); Blood Urea Nitrogen 40 mg/dL (9-20); Calcium 8.2 mg/dL (8.4-10.2); Carbon Dioxide 28 mmol/L (22-30); Chloride 108 mmol/L (98-107); Estimated CRCL calculation 33 ml/min; Estimated Glomerular Filt Rate 39; Glucose 90 mg/dL (65-110); Potassium 3.8 mmol/L (3.4-5.0); Sodium 140 mmol/L (137-145)
[2024-10-11] MEDS: ROSUVASTATIN 20 MG TABLET 40 MG PO (09:04)
[2024-10-11] MEDS: SERTRALINE HCL 50 MG TABLET PO (09:04)
[2024-10-11] MEDS: ASPIRIN 81 MG ENTERIC TABLET PO (09:04)
[2024-10-11] MEDS: DOXYCYCLINE HYCLATE 100 MG TABLET PO ×2 (09:04→21:24)
[2024-10-11] MEDS: carvediloL 12.5 MG TABLET PO ×2 (09:04→21:24)
[2024-10-11] MEDS: FUROSEMIDE INJ 40 MG/4 ML VIAL IV PUSH ×2 (09:05→21:24)
[2024-10-11] MEDS: amLODIPine BESYLATE 10 MG TABLET PO (09:05)
--- NOTE | 2024-10-11 09:08 | P.PNIM_ITS ---
Progress Note: A&P Assessment and Plan (1) Acute respiratory failure with hypoxia and hypercapnia: Code(s): J96.01 - Acute respiratory failure with hypoxia; J96.02 - Acute respiratory failure with hypercapnia Status: Acute Assessment and Plan: RSV COVID influenza negative Chronic smoker 1 ppd for 50 years Never had a pulmonology workup as Ob Denies any cardiac history Echo ordered Frequent COPD exacerbation Denies using home oxygen Continue levofloxacin 750 mg p.o. q.48h until 0 10/15 Continue doxycycline 100 mg p.o. b.i.d. Continue ipratropium and albuterol Continue Trelegy Ellipta Consult pulmonology and appreciate recommendation (2) Non-ST elevation myocardial infarction (NSTEMI): Code(s): I21.4 - Non-ST elevation (NSTEMI) myocardial infarction Status: Acute Assessment and Plan: Echo shows a left ventricular ejection fraction 45-50% Continue aspirin 81 mg p.o. q.d. Continue rosuvastatin 40 mg p.o. q.d. Reviewed EKG and chest x-ray Denies any illicit drug use Cardiology evaluated the patient and following recommendation (3) Combined systolic and diastolic cardiac dysfunction: Code(s): I51.89 - Other ill-defined heart diseases Status: Acute Assessment and Plan: As above (4) Chronic obstructive pulmonary disease: Qualifiers: COPD type: emphysema Emphysema type: unspecified Qualified Code(s): J43.9 - Emphysema, unspecified Code(s): J44.9 - Chronic obstructive pulmonary disease, unspecified Status: Chronic Assessment and Plan: As above (5) Chronic kidney disease: Code(s): N18.9 - Chronic kidney disease, unspecified Status: Acute Assessment and Plan: Avoiding nephrotoxic drugs Monitor closely during dialysis Avoid NSAIDs Continue monitoring creatinine and BUN Baseline creatinine around 1.5 Follow-up nephrology as an outpatient (6) Hypertension: Qualifiers: Hypertension type: primary hypertension Qualified Code(s): I10 - Essential (primary) hypertension Code(s): I10 - Essential (primary) hypertension Status: Acute Assessment and Plan: As above (7) Type 2 diabetes mellitus: Qualifiers: Diabetes mellitus complication status: with other specified complication Diabetes mellitus retirement insulin use: without long term acute care registered nurse use Qualified Code(s): E11.69 - Type 2 diabetes mellitus with other specified complication Code(s): E11.9 - Type 2 diabetes mellitus without complications Status: Acute Assessment and Plan: HBA1c 5.9 (8) Hypothyroidism: Qualifiers: Hypothyroidism type: acquired Qualified Code(s): E03.9 - Hypothyroidism, unspecified Code(s): E03.9 - Hypothyroidism, unspecified Status: Acute (9) Mixed hyperlipidemia: Code(s): E78.2 - Mixed hyperlipidemia Status: Acute Assessment and Plan: Continue rosuvastatin 40 mg (10) Peripheral vascular disease: Code(s): I73.9 - Peripheral vascular disease, unspecified Status: Acute (11) Chronic anemia: Code(s): D64.9 - Anemia, unspecified Status: Acute Assessment and Plan: Order anemia panel Transfuse if hemoglobin less than 7 Transfuse if symptomatic (12) Obstructive sleep apnea: Code(s): G47.33 - Obstructive sleep apnea (adult) (pediatric) Status: Acute Assessment and Plan: Not using CPAP Subjective Date/time seen: 10/11/24 09:08 Interval history: Interval history: As per patient he is a chronic smoker for 50 years, 1 ppd and he quit smoking 3 weeks ago. Patient was using CPAP previously. Patient never seen a aircraft armament mechanic or underwent PFTs before. Patient has a appointment December 2024 with the aircraft armament mechanic but unfortunately he had worsened shortness of breath and came to ED.Cardiology evaluated the patient for the chest pain and no acute intervention. Echocardiogram shows Left ventricular systolic function is mildly reduced, estimated at 45-50%. Patient wants to see a aircraft armament mechanic. 10/11/2024: Patient continues to improve. Wanted to see aircraft armament mechanic in regards to his obstructive sleep apnea. Review of Systems Review of Systems: 12 systems were reviewed and are negativ e except for as per HPI. Exam Narrative: General: Mildly ill-appearing male sitting at the side of the bed on BiPAP in no distress. Weight: 87.5 kg. BMI: 30.2. HEENT: PERRL, EOMI. Sclera anicteric. Mucous membranes appear tacky through the BiPAP mask. Neck: Supple. No significant JVD. Respiratory: On BiPAP, able to speak freely through the mask. Lung sounds are diminished throughout with scattered crackles. Cardiovascular: Regular rate and rhythm with occasional ectopy. Soft systolic murmur at the left sternal border. Gastrointestinal: Abdomen is soft, nontender, and nondistended with positive bowel sounds. Skin: Warm and dry. Generalized pallor. Extremities: No cyanosis or clubbing. Pitting edema of the lower legs. Radial pulses palpable. Pedal pulses diminished. Neurological: Alert and oriented. Cranial nerves 2-12 are grossly intact. No gross focal deficits to casual conversation. Psychiatric: Pleasant and cooperative with appropriate mood and affect. Objective Data Vital Signs Vital Signs: Vital Signs - 24 hr 10/10/24 10:00 10/10/24 13:42 10/10/24 13:42 Temperature Pulse Rate 56 L 57 L Respiratory Rate 20 Blood Pressure Pulse Oximetry 96 Oxygen Delivery Nasal Cannula Oxygen Flow Rate 2 Fraction of Inspired Oxygen 28 10/10/24 13:51 10/10/24 16:00 10/10/24 16:00 Temperature 97.5 F L Pulse Rate 54 L 53 L 53 L Respiratory Rate 20 20 Blood Pressure 127/64 Pulse Oximetry 100 Oxygen Delivery Oxygen Flow Rate Fraction of Inspired Oxygen 10/10/24 20:00 10/10/24 20:00 10/10/24 20:00 Temperature 97.7 F Pulse Rate 58 L 60 Respiratory Rate 16 Blood Pressure 140/50 L Pulse Oximetry 96 96 Oxygen Delivery Nasal Cannula Oxygen Flow Rate 2 Fraction of Inspired Oxygen 10/10/24 20:59 10/10/24 20:59 10/10/24 21:08 Temperature Pulse Rate 56 L 60 56 L Respiratory Rate 20 Blood Pressure Pulse Oximetry 96 Oxygen Delivery Nasal Cannula Oxygen Flow Rate 2 Fraction of Inspired Oxygen 10/10/24 21:10 10/10/24 22:34 10/10/24 23:37 Temperature 98.3 F Pulse Rate 55 L 54 L 55 L Respiratory Rate 20 23 H 18 Blood Pressure 108/56 L Pulse Oximetry 98 99 Oxygen Delivery BiPAP Oxygen Flow Rate Fraction of Inspired Oxygen 10/11/24 00:00 10/11/24 03:03 10/11/24 03:03 Temperature Pulse Rate 53 L 53 L 53 L Respiratory Rate 25 H 25 H Blood Pressure Pulse Oximetry 96 Oxygen Delivery BiPAP Oxygen Flow Rate Fraction of Inspired Oxygen 10/11/24 03:18 10/11/24 03:34 10/11/24 04:00 Temperature 98.3 F Pulse Rate 65 51 L 49 L Respiratory Rate 17 21 H Blood Pressure 139/63 Pulse Oximetry 98 Oxygen Delivery Oxygen Flow Rate Fraction of Inspired Oxygen 10/11/24 07:36 10/11/24 07:36 10/11/24 07:47 Temperature Pulse Rate 54 L 55 L Respiratory Rate 20 20 Blood Pressure Pulse Oximetry 94 Oxygen Delivery Nasal Cannula Oxygen Flow Rate 1 Fraction of Inspired Oxygen 10/11/24 08:20 10/11/24 09:04 Temperature Pulse Rate 63 Respiratory Rate Blood Pressure Pulse Oximetry 93 Oxygen Delivery Oxygen Flow Rate Fraction of Inspired Oxygen Intake/Output Intake/Output: Intake & Output 10/08/24 10/09/24 10/10/24 10/11/24 23:59 23:59 23:59 23:59 Intake Total 640 950 150 Output Total 1450 1100 Balance -810 -150 150 Meds/Results Medications: Active Medications Generic Name Dose Route Start Last Admin Trade Name Freq PRN Reason Stop Dose Admin Acetaminophen 650 mg 10/09/24 12:13 Acetaminophen 325 Mg Tablet PO Q4H PRN Mild Pain (1-3) or Fever Albuterol/Ipratropium 3 ml 10/10/24 14:00 10/11/24 07:35 Ipratropium 0.5 Mg/Albuterol Sulfate 2.5 Mg Ampul.Neb 3 Ml INHALATION 3 ml Q6HRT SANGEETA Administration Amlodipine Besylate 10 mg 10/10/24 09:00 10/11/24 09:05 Amlodipine Besylate 10 Mg Tablet PO 10 mg DAILY SANGEETA Administration Aspirin 81 mg 10/10/24 09:00 10/11/24 09:04 Aspirin 81 Mg Enteric Tablet PO 81 mg DAILY SANGEETA Administration Carvedilol 12.5 mg 10/10/24 09:00 10/11/24 09:04 Carvedilol 12.5 Mg Tablet PO 12.5 mg Q12HR SANGEETA Administration Dextrose 12.5 gm 10/09/24 16:07 Dextrose 50% 25 Gm/50 Ml Syringe IV PUSH PRN PRN Hypoglycemia Protocol Doxycycline Hyclate 100 mg 10/09/24 21:00 10/11/24 09:04 Doxycycline Hyclate 100 Mg Tablet PO 100 mg Q12HR SANGEETA Administration Fluticasone/Umeclidinium/Vilanterol 1 puff 10/10/24 08:00 10/11/24 07:35 Fluticasone/Umeclidin/Vilanter 100-62.5-25 Mcg Ellipta INHALATION 1 puff DAILYRT SANGEETA Administration Furosemide 40 mg 10/09/24 21:00 10/11/24 09:05 Furosemide Inj 40 Mg/4 Ml Vial IV PUSH 40 mg Q12HR SANGEETA Administration Glucagon 1 mg 10/09/24 16:07 Glucagon For Inj 1 Mg Vial IM PRN PRN Hypoglycemia Protocol Glucose 15 gm 10/09/24 16:07 Glucose Oral Gel 15 Gm Of Glucse In 37.5 Gm Tube PO PRN PRN Hypoglycemia Protocol Dextrose 1,000 mls @ 100 mls/hr 10/09/24 16:07 Dextrose 5% 1,000 Ml IVPB PRN PRN Hypoglycemia Protocol Insulin Aspart 2 - 5 units 10/09/24 17:00 10/11/24 09:04 Insulin Aspart (*Bkc) 100 Units/Ml SUB-Q Not Given TIDWM SANGEETA Protocol Insulin Aspart 1 - 2 units 10/09/24 21:00 10/10/24 20:59 Insulin Aspart (*Bkc) 100 Units/Ml SUB-Q Not Given HS SANGEETA Protocol Levofloxacin 750 mg 10/11/24 12:00 Levofloxacin 750 Mg Tablet PO 10/15/24 12:01 Q48H [facility] Levothyroxine Sodium 75 mcg 10/10/24 06:30 10/11/24 05:50 Levothyroxine Sodium 75 Mcg Tablet PO 75 mcg DAILY@0630 SANGEETA Administration Perflutren Lipid Microsphere 0 ml 10/09/24 16:14 Perflutren Lipid Microspheres 1.5 Ml Vial Diluted To 10 Ml Total Volume IV PUSH 10/12/24 16:14 ONCE PRN adequate visualization Protocol Rosuvastatin Calcium 40 mg 10/10/24 09:00 10/11/24 09:04 Rosuvastatin 20 Mg Tablet PO 40 mg DAILY SANGEETA Administration Sertraline HCl 50 mg 10/10/24 09:00 10/11/24 09:04 Sertraline Hcl 50 Mg Tablet PO 50 mg DAILY SANGEETA Administration Zolpidem Tartrate 5 mg 10/09/24 23:55 10/10/24 20:58 Zolpidem Tartrate (*Crx) 5 Mg Tablet PO 5 mg QHS SANGEETA Administration Radiology Results: ITS Impressions Chest X-Ray 10/09/24 10:43 IMPRESSION: Bibasilar atelectasis versus pneumonia with pleural effusion more on the right side. Cardiomegaly with cardiac decompensation and pulmonary edema. Venous Doppler Study 10/10/24 08:53 IMPRESSION: 1. No deep venous thrombosis. Labs Labs: Laboratory Results - last 24 hr 10/10/24 10/10/24 10/10/24 11:46 16:25 20:28 WBC RBC Hgb Hct MCV MCH MCHC RDW Plt Count MPV Sodium Potassium Chloride Carbon Dioxide Anion Gap BUN Creatinine Estim Creat Clear Calc Estimated GFR Glucose POC Capillary Glucose 184 H 95 107 H Calcium Total Bilirubin AST ALT Alkaline Phosphatase Total Protein Albumin 10/11/24 10/11/24 07:56 08:04 WBC 9.0 RBC 3.47 L Hgb 8.8 L Hct 28.8 L MCV 83.0 MCH 25.4 L MCHC 30.6 L RDW 19.3 H Plt Count 255 MPV 9.2 Sodium 140 Potassium 3.8 Chloride 108 H Carbon Dioxide 28 Anion Gap 4 BUN 40 H Creatinine 1.73 H Estim Creat Clear Calc 33 Estimated GFR 39 L Glucose 90 POC Capillary Glucose 84 Calcium 8.2 L Total Bilirubin 0.3 AST 21 ALT 44 Alkaline Phosphatase 182 H Total Protein 6.0 L Albumin 3.3 L Quality VTE Prophylaxis VTE prophylaxis: mechanical ordered Hospitalist MIPS Advance Care Plan I have confirmed that the patient's Advanced Care Plan is present, code status is documented, or surrogate decision maker is listed in patient medical record.: Yes Medication Reconciliation I have utilized all available resources to obtain, update and review the patients current medications (includes all prescriptions, OTC, herbals, cannabis, and nutritional supplements).: Yes
[2024-10-11 09:37] LABS: Reticulocyte Hemoglobin Conten 27.4 pg (28.2-36.6); Reticulocytes Absolute 0.05 10^6/uL (0.02-0.10)
[2024-10-11 10:08] LABS: Iron 33 ug/dL (49-181)
[2024-10-11 10:10] LABS: Lactate Dehydrogenase 191 U/L (120-246)
[2024-10-11 10:17] LABS: Percent Iron Saturation 8 % (20-50)
[2024-10-11 10:18] LABS: Transferrin 276 mg/dL (206-381)
[2024-10-11 11:17] LABS: Folic Acid 5.1 ng/mL (2.76->20)
[2024-10-11 11:50] LABS: Glucose Point of Care 107 mg/dl (65-105)
[2024-10-11] MEDS: levoFLOXacin 750 MG TABLET PO (12:41)
[2024-10-11 16:54] LABS: Glucose Point of Care 85 mg/dl (65-105)
--- NOTE | 2024-10-11 16:59 | P.CONPL_ITS ---
Assessment and Plan Assessment and plan (1) Acute respiratory failure with hypoxia and hypercapnia: Code(s): J96.01 - Acute respiratory failure with hypoxia; J96.02 - Acute respiratory failure with hypercapnia Status: Acute Assessment and Plan: He does not use O2 at home. His tells me that she has seen 53% saturation on the oximeter. He had a Home O2 today before leaving, did not require supplemental O2 for discharge. (2) Tobacco abuse: Code(s): Z72.0 - Tobacco use Status: Acute (3) Chronic obstructive pulmonary disease: Qualifiers: COPD type: emphysema Emphysema type: unspecified Qualified Code(s): J 43.9 - Emphysema, unspecified Code(s): J44.9 - Chronic obstructive pulmonary disease, unspecified Status: Chronic (4) Obstructive sleep apnea: Code(s): G47.33 - Obstructive sleep apnea (adult) (pediatric) Status: Acute Assessment and Plan: Known obstructive sleep apnea, diagnosed 2011, AHI 14.5 with CPAP 11 cm which was not optimal; as he had no REM on the study. He has had no follow up, quit using about 10 years ago. He snores, wakes up with a dry mouth, goes to bed at midnight, wakes at 7 in the morning, does not feel refreshed. says that on occasion he has been screaming from his room and when she checks his saturation is 53% and his heart rates 120 or higher. He naps daily, naps begin anywhere between 11:00 a.m. and 1:00 p.m. and naps may last 2-3 hours. Plan plan: 1) He had a Home O2 study, did not require O2. This was called to me after face to face visit. Patient agreed to have O2 set up if he qualifies for it. 2) Strongly advised continued tobacco cessation. He stopped a month ago when his breathing worsened. 3) Continue Trelegy 100 mg, one puff a day and albuterol (not albuterol - ipratropium) q.i.d prn shortness of breath. 4. He can follow up in our pulmonary office in 2-3 weeks, and needs a split night sleep study to diagnose and treat sleep apnea. His last sleep study was 15 years ago, had a CPAP machine that quit working 10 years ago when he was at [employer]. He went without using it for years, now wants to be treated again, wants a CPAP machine now. I explained that he has different problems compared to what his problems were 15 years ago. Now with congestive heart failure, advancing COPD and chronic kidney disease, his CPAP settings will be completely different. He may have central apnea. He is not a candidate for a home sleep test nor an auto PAP. 5) The patient insists that he has no problem with his heart or his kidneys. This hospital admission was for congestive heart failure. He tells me his legs are not swollen and I can see clearly that he has significant lower extremity edema. He is angry with me. He does not want to see me in the office. I told him that he can see another airfield operations specialist in the office after the first visit in a few weeks. His tells me that he has an appointment for December. This will be moved sooner because now he is a hospital follow up. History of Present Illness History of Present Illness Consult date: 10/20/24 Requesting physician: Bro Hughes MD Chief complaint: Pneumonia/CHF/Elevated Trop/Acute Hypoxic Resp Callum Narrative: pt was seen October 12, 2024 at 1300 Room 251 His Kira as at the bedside. NEW: Eladio Morrissey is a 73-year-old man smoker with COPD who was admitted with a non STEMI, has combined diastolic and systolic congestive heart failure; echo 10/10 shows EF 45-50%, mod LVE, diastolic dysfunction (E/e' 15), severe LAE, mild KAVITHA, mild MR. NTproBNP 8,820 elevated. He is on Lasix 40 mg IV BID. He had a mixed respiratory and metabolic acidosis on admission with very minimal hypercapnia. He was hypoxemic, required BiPAP 12/6, oxygen was weaned. He used BiPAP during his stay and wanted to have a machine to go home. He needs to undergo another sleep study. The patient has much of the history supplied by his . He has had increased lower extremity swelling prior to this admission. He came in acutely due to shortness of breath on October 09. He had of wellness visit with Dr. Burroughs in August and did not have any specific complaints. After diuresis, he felt better. He has COPD, denies using home O2, uses Trelegy 100 mg, has not had pulmonary evaluation. He is short of breath with exertion, can walk up a flight of stairs but is winded and has to stop to rest. He does not have a daily cough with daily sputum but when he does have a cough the sputum is clear. He wheezes with exertion and when he is ill. During the last year he has had several exacerbations of COPD. He continued to smoke until last month when he was too short of breath and had to stop smoking. Tobacco:Chronic smoker 1 ppd for 50 years. He stopped smoking about a month ago because he was out of breath. No vaping. Chart indicates occasional marijuana use. WorK: retired. 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 He use Lysol and other liquids. He was exposed to solvents and other items with vapors. 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 Current hospital medications: Doxycycline and Levaquin orally Trelegy 1 puff a day Albuterol and ipratropium nebulized Insulin Rosuvastatin Sertraline Ambien 5 mg HS Amlodipine 10 mg Coreg 12.5 mg b.i.d. PMH : hypertension, hyperlipidemia, type 2 diabetes mellitus, peripheral vascular disease, obstructive sleep apnea, and hypothyroidism, COPD with exacerbations with the most recent 1 being Thanks2023. DATA * 3 10/09/24 10:22 am 10/09/24 11:44 am 10/10/24 Venous pH 7.232 7.30 7.37 pCO2 47.8 45.7 37.5 pO2 104.5 59.2 43.7 HCO3 19.7 22 21.4 sat 96% 88% A-a gradient 270 137 O2 delivery BiPAP BiPAP BiPAP O2 60% 35% 35% rate IPAP 12 12 12 EPAP 6 6 5 * serology - negative RSV flu and COVID * 10/09/2024 CXR; IMPRESSION: Bibasilar atelectasis versus pneumonia with pleural effusion more on the right side. Cardiomegaly with cardiac decompensation and pulmonary edema. * 10/10/24 ECHO; Complete two-dimensional, color flow and Doppler transthoracic echocardiogram is performed. 2. Left ventricular chamber dimension is moderately enlarged. 3. Left ventricular systolic function is mildly reduced, estimated at 45-50%. 4. The left ventricular diastolic function is abnormal. 5. E/e' 15 is elevated. 6. Left atrial chamber dimension is severely enlarged. 7. Right atrial chamber dimension is mildly enlarged. 8. There is mild aortic valve sclerosis. 9. There is mild mitral valve regurgitation. 10. No pulmonary hypertension, estimated pulmonary arterial systolic pressure is 36 mmHg. * 10/10 venous Dopplers; negative Review of Systems 2 Review of Systems: All systems reviewed & are unremarkable except as noted in HPI and below [facility] Past Medical History Medical History (Updated 10/09/24 @ 15:56 by Babs Arriaza PA-C) Hypertension Chronic anemia Chronic kidney disease Combined systolic and diastolic cardiac dysfunction Type 2 diabetes mellitus Hypothyroidism Arthritis Gout Tobacco dependence Obstructive sleep apnea Peripheral vascular disease Chronic obstructive pulmonary disease Hyperlipidemia Carotid stenosis Surgical History Surgical History History of carotid endarterectomy History of cholecystectomy History of cardiac catheterization History of revascularization procedure of lower extremity Family History Family History Father Hypertension Cerebrovascular accident Grandparent Family history of malignant neoplasm Diabetes mellitus Sibling Family history of diabetes mellitus in first degree relative Diabetes mellitus Mother Hyperlipidemia Social History Social History (Updated 10/09/24 @ 15:40 by Babs Arriaza PA-C) Social History: Surrogate medical decision maker: Brooks Morrissey, son ([phone]) and Kira Morrissey, spouse ([phone]). Code status: Full code. Smoking packs per day: 1 Smoking cigarettes per day: 20.0 Years smoked: 30 Smoking pack-years: 30.00 Smoking status: Former smoker Tobacco type: cigarettes Second hand tobacco smoke exposure: Yes Alcohol intake: never Substance use: current Substance use type: marijuana Other substance usage details: smoking and edibles Do You Feel Safe in your Home?: Yes Lack of Transportation: No Lack of Food: Never True Current Housing: I Have Housing Concerned About Future Housing: No Difficulty Paying Gas/Electric Bills: No Difficulty Paying for Meds: No Currently Unemployed: No Education: High School Diploma/GED Difficulty w/ Childcare or Family Care: No Living arrangements: with family Occupation/Education: retired Spiritual care concerns: Yes Meds Home Medications and Allergies Home Medications ?Medication ?Instructions ?Recorded ?Confirmed ?Type aspirin 81 mg tablet,delayed 81 mg PO DAILY 02/02/23 10/09/24 History release (Adult Low Dose Aspirin) empagliflozin 12.5 mg-metformin 1 tablet PO BID #180 tabs 01/03/24 10/09/24 Rx 1,000 mg tablet (Synjardy) hydrochlorothiazide 25 mg tablet 25 mg PO DAILY #90 tabs 01/03/24 10/09/24 Rx budesonide 160 mcg-glycopyr 9 2 inh inhalation BID #10.7 grams 05/05/24 10/09/24 Rx mcg-formot 4.8 mcg/actuation HFA inhaler (Breztri Aerosphere) amlodipine 10 mg tablet 10 mg PO DAILY 05/11/24 10/09/24 History blood sugar diagnostic (OneTouch #100 ea 06/17/24 10/09/24 Rx Ultra Test strips) blood-glucose meter (OneTouch #1 ea 06/17/24 10/09/24 Rx Ultra2 Meter) lancets #200 ea 06/17/24 10/09/24 Rx clopidogrel 75 mg tablet 75 mg PO DAILY #90 tabs 08/27/24 10/09/24 Rx rosuvastatin 40 mg tablet 40 mg PO DAILY #90 tabs 08/27/24 10/09/24 Rx sertraline 50 mg tablet 50 mg PO DAILY #90 tabs 08/28/24 10/09/24 Rx levothyroxine 75 mcg tablet 75 mcg PO DAILY #90 tabs 09/08/24 10/09/24 Rx albuterol sulfate 2.5 mg/3 mL 2.5 mg (3 mL) inhalation Q4-6H PRN 09/29/24 10/09/24 Rx (0.083 %) solution for nebulization shortness of breath or wheezing #75 mL albuterol sulfate 90 mcg/actuation 1 inh inhalation QID PRN 09/29/24 10/09/24 Rx aerosol inhaler SOB/Wheezing #8.5 grams zolpidem 5 mg tablet 10 mg (2 x 5 mg) PO QHS #30 tabs 09/29/24 10/09/24 Rx carvedilol 12.5 mg tablet 12.5 mg PO BID #60 tabs 10/01/24 10/09/24 Rx furosemide 40 mg tablet 40 mg PO BID 30 days #60 tabs 10/12/24 Rx levofloxacin 750 mg tablet 750 mg PO DAILY #2 tabs 10/12/24 Rx Allergies Allergy/AdvReac Type Severity Reaction Status Date / Time penicillin G Allergy Mild Unknown Verified 10/09/24 14:14 codeine Allergy Unknown Unknown Verified 10/09/24 14:14 Penicillins Allergy Unknown Unknown Verified 10/09/24 14:14 latex Allergy Unknown Verified 10/09/24 14:14 Vital Signs Vital Signs - 24 hr 10/10/24 20:00 10/10/24 20:00 10/10/24 20:00 Temperature 36.5 C Pulse Rate 58 L 60 Respiratory Rate 16 Blood Pressure 140/50 L Pulse Oximetry 96 96 Oxygen Delivery Nasal Cannula Oxygen Flow Rate 2 Fraction of Inspired Oxygen 10/10/24 20:59 10/10/24 20:59 10/10/24 21:08 Temperature Pulse Rate 56 L 60 56 L Respiratory Rate 20 Blood Pressure Pulse Oximetry 96 Oxygen Delivery Nasal Cannula Oxygen Flow Rate 2 Fraction of Inspired Oxygen 10/10/24 21:10 10/10/24 22:34 10/10/24 23:37 Temperature 36.8 C Pulse Rate 55 L 54 L 55 L Respiratory Rate 20 23 H 18 Blood Pressure 108/56 L Pulse Oximetry 98 99 Oxygen Delivery BiPAP Oxygen Flow Rate Fraction of Inspired Oxygen 10/11/24 00:00 10/11/24 03:03 10/11/24 03:03 Temperature Pulse Rate 53 L 53 L 53 L Respiratory Rate 25 H 25 H Blood Pressure Pulse Oximetry 96 Oxygen Delivery BiPAP Oxygen Flow Rate Fraction of Inspired Oxygen 10/11/24 03:18 10/11/24 03:34 10/11/24 04:00 Temperature 36.8 C Pulse Rate 65 51 L 49 L Respiratory Rate 17 21 H Blood Pressure 139/63 Pulse Oximetry 98 Oxygen Delivery Oxygen Flow Rate Fraction of Inspired Oxygen 10/11/24 07:36 10/11/24 07:36 10/11/24 07:47 Temperature Pulse Rate 54 L 55 L Respiratory Rate 20 20 Blood Pressure Pulse Oximetry 94 Oxygen Delivery Nasal Cannula Oxygen Flow Rate 1 Fraction of Inspired Oxygen 10/11/24 08:00 10/11/24 08:20 10/11/24 09:04 Temperature Pulse Rate 56 L 63 Respiratory Rate Blood Pressure Pulse Oximetry 93 Oxygen Delivery Room Air Oxygen Flow Rate Fraction of Inspired Oxygen 10/11/24 09:05 10/11/24 10:52 10/11/24 12:00 Temperature 36.3 C L Pulse Rate 53 L 50 L Respiratory Rate 18 Blood Pressure 134/53 L Pulse Oximetry 94 Oxygen Delivery Room Air Oxygen Flow Rate Fraction of Inspired Oxygen 10/11/24 13:34 10/11/24 13:34 10/11/24 13:46 Temperature Pulse Rate 59 L 61 Respiratory Rate 20 20 Blood Pressure Pulse Oximetry 94 Oxygen Delivery Room Air Oxygen Flow Rate Fraction of Inspired Oxygen 10/11/24 14:56 10/11/24 16:00 Temperature 36.5 C Pulse Rate 54 L 54 L Respiratory Rate 18 Blood Pressure 124/49 L Pulse Oximetry 95 Oxygen Delivery Oxygen Flow Rate Fraction of Inspired Oxygen Exam 2 Narrative: GEN: Alert, oriented, not in distress. He is on room air, sat 93%, sitting up in a chair. HEENT: pupils are equal, EOMI, symmetrical face; NECK: Trachea is midline CHEST: Equal air entry, symmetric excursion, hyperinflated, decreased breath sounds, no wheezing CV: Distant regular S1S2 no m/g/r ABD : (+) bowel sounds Extremities : no clubbing, no cyanosis, 2+ pitting edema up to the knees both lower legs PSYCH: alert, hostile. Results Laboratory Findings 10/12/24 04:44 10/12/24 04:44 ABG, PT/INR, D-dimer: ABG ABG pH 7.301 (7.350-7.450) L 10/09/24 11:44 ABG pCO2 45.7 mmHg (35.0-45.0) H 10/09/24 11:44 ABG pO2 59.2 mmHg (80.0-100.0) L 10/09/24 11:44 ABG O2 Saturation 88.0 % (95.0-100.0) L 10/09/24 11:44 PT/INR, D-dimer PT 14.4 Seconds (11.1-14.7) 10/09/24 10:18 INR 1.1 10/09/24 10:18 Abnormal lab findings: Abnormal Labs 10/09/24 10/09/24 10/09/24 10:18 10:22 11:44 WBC 16.3 H RBC 3.96 L Hgb 9.9 L Hct 33.7 L MCH 25.0 L MCHC 29.4 L RDW 19.2 H Immature Gran % (Auto) 0.6 H Neut % (Auto) 81.4 H Lymph % (Auto) 10.0 L Taney # (Auto) 1.0 H Abs Immat Gran (auto) 0.10 H Absolute Neuts (auto) 13.2 H Retic Hgb Content ABG pH 7.232 L* 7.301 L ABG pCO2 47.8 H 45.7 H ABG pO2 104.5 H 59.2 L ABG HCO3 19.7 L ABG O2 Saturation 88.0 L ABG O2 Content 13.9 L 11.9 L VBG pCO2 VBG HCO3 Oxyhemoglobin 87.2 L* Total Hemoglobin 10.2 L 9.7 L Chloride 109 H BUN 34 H D Creatinine 1.66 H Estimated GFR 41 L Glucose 183 H POC Capillary Glucose Hemoglobin A1c Calcium Iron % Saturation AST 65 H ALT 83 H Alkaline Phosphatase 269 H Troponin I 0.799 H* NT-Pro-B Natriuret Pep 8820 H Total Protein Albumin Free T4 10/09/24 10/09/24 10/09/24 14:49 17:05 18:12 WBC RBC Hgb Hct MCH MCHC RDW Immature Gran % (Auto) Neut % (Auto) Lymph % (Auto) Taney # (Auto) Abs Immat Gran (auto) Absolute Neuts (auto) Retic Hgb Content ABG pH ABG pCO2 ABG pO2 ABG HCO3 ABG O2 Saturation ABG O2 Content VBG pCO2 VBG HCO3 Oxyhemoglobin Total Hemoglobin Chloride BUN Creatinine Estimated GFR Glucose POC Capillary Glucose 145 H Hemoglobin A1c 5.9 H Calcium Iron % Saturation AST ALT Alkaline Phosphatase Troponin I 0.622 H* D 0.617 H* NT-Pro-B Natriuret Pep Total Protein Albumin Free T4 10/09/24 10/10/24 10/10/24 19:50 03:51 04:17 WBC RBC 3.30 L Hgb 8.3 L Hct 27.8 L MCH 25.2 L MCHC 29.9 L RDW 19.1 H Immature Gran % (Auto) Neut % (Auto) Lymph % (Auto) Taney # (Auto) Abs Immat Gran (auto) Absolute Neuts (auto) Retic Hgb Content ABG pH ABG pCO2 ABG pO2 ABG HCO3 ABG O2 Saturation ABG O2 Content VBG pCO2 37.5 L VBG HCO3 21.4 L Oxyhemoglobin Total Hemoglobin Chloride BUN 39 H Creatinine 1.55 H Estimated GFR 44 L Glucose 121 H POC Capillary Glucose 272 H Hemoglobin A1c Calcium 8.2 L Iron % Saturation AST ALT 53 H Alkaline Phosphatase 199 H Troponin I NT-Pro-B Natriuret Pep Total Protein 6.0 L Albumin 3.1 L Free T4 0.69 L 10/10/24 10/10/24 10/10/24 07:39 11:46 20:28 WBC RBC Hgb Hct MCH MCHC RDW Immature Gran % (Auto) Neut % (Auto) Lymph % (Auto) Taney # (Auto) Abs Immat Gran (auto) Absolute Neuts (auto) Retic Hgb Content ABG pH ABG pCO2 ABG pO2 ABG HCO3 ABG O2 Saturation ABG O2 Content VBG pCO2 VBG HCO3 Oxyhemoglobin Total Hemoglobin Chloride BUN Creatinine Estimated GFR Glucose POC Capillary Glucose 132 H 184 H 107 H Hemoglobin A1c Calcium Iron % Saturation AST ALT Alkaline Phosphatase Troponin I NT-Pro-B Natriuret Pep Total Protein Albumin Free T4 10/11/24 10/11/24 10/11/24 08:01 08:04 11:46 WBC RBC 3.47 L Hgb 8.8 L Hct 28.8 L MCH 25.4 L MCHC 30.6 L RDW 19.3 H Immature Gran % (Auto) Neut % (Auto) Lymph % (Auto) Taney # (Auto) Abs Immat Gran (auto) Absolute Neuts (auto) Retic Hgb Content 27.4 L ABG pH ABG pCO2 ABG pO2 ABG HCO3 ABG O2 Saturation ABG O2 Content VBG pCO2 VBG HCO3 Oxyhemoglobin Total Hemoglobin Chloride 108 H BUN 40 H Creatinine 1.73 H Estimated GFR 39 L Glucose POC Capillary Glucose 107 H Hemoglobin A1c Calcium 8.2 L Iron 33 L % Saturation 8 L AST ALT Alkaline Phosphatase 182 H Troponin I NT-Pro-B Natriuret Pep Total Protein 6.0 L Albumin 3.3 L Free T4
[2024-10-11 21:07] LABS: Glucose Point of Care 89 mg/dl (65-105)
[2024-10-11] MEDS: ZOLPIDEM TARTRATE (*CRX) 5 MG TABLET PO (21:24)
[2024-10-12] VITALS (16 sets, daily range): BP systolic 130–135; BP diastolic 45–60; PULSE 53–68; RESP 17–20; TEMP 36.8–37; O2SAT 90–96
[2024-10-12] MEDS: IPRATROPIUM 0.5 MG/ALBUTEROL SULFATE 2.5 MG AMPUL.NEB 3 ML INHALATION ×3 (02:33→14:53)
[2024-10-12 05:02] LABS: Hematocrit 27.7 % (42.0-52.0); Hemoglobin 8.4 g/dL (14.0-18.0); Mean Corpuscular HGB Conc 30.3 g/dl (32-36); Mean Corpuscular Hemoglobin 24.9 pg (26-34); Mean Corpuscular Volume 82.2 fl (80-100); Mean Platelet Volume 9.2 fl (7.4-10.4); Platelet Count Result 259 k/mm3 (150-375); Red Blood Count 3.37 M/mm3 (4.6-6.20); Red Cell Distribution Width 18.8 % (11.5-14.5); White Blood Count 8.7 K/mm3 (4.5-10.0)
[2024-10-12 05:22] LABS: Alanine Aminotransferase 36 U/L (6-50); Alkaline Phosphatase 161 U/L (38-126); Anion Gap 4 mmol/L (4-12); Aspartate Amino Transferase 20 U/L (17-59); Bilirubin,Total 0.3 mg/dL (0.2-1.3); Blood Urea Nitrogen 37 mg/dL (9-20); Calcium 8.1 mg/dL (8.4-10.2); Carbon Dioxide 31 mmol/L (22-30); Chloride 106 mmol/L (98-107); Estimated CRCL calculation 34 ml/min; Estimated Glomerular Filt Rate 40; Glucose 97 mg/dL (65-110); Potassium 3.5 mmol/L (3.4-5.0); Sodium 141 mmol/L (137-145)
[2024-10-12] MEDS: LEVOTHYROXINE SODIUM 75 MCG TABLET PO (06:25)
[2024-10-12 08:12] LABS: Glucose Point of Care 103 mg/dl (65-105)
[2024-10-12 08:44] LABS: Haptoglobin 198 mg/dL (43-212)
[2024-10-12] MEDS: FLUTICASONE/UMECLIDIN/VILANTER 100-62.5-25 MCG ELLIPTA 1 PUFF INHALATION (08:55)
--- NOTE | 2024-10-12 09:00 | P.PNIM_ITS ---
Progress Note: A&P Assessment and Plan (1) Acute respiratory failure with hypoxia and hypercapnia: Code(s): J96.01 - Acute respiratory failure with hypoxia; J96.02 - Acute respiratory failure with hypercapnia Status: Acute Assessment and Plan: RSV COVID influenza negative Chronic smoker 1 ppd for 50 years Never had a pulmonology workup as OP Denies any cardiac history Echo ordered Frequent COPD exacerbation Denies using home oxygen Continue levofloxacin 750 mg p.o. q.48h until 10/15 Continue doxycycline 100 mg p.o. b.i.d. Continue ipratropium and albuterol Continue Trelegy Ellipta Consult pulmonology and appreciate recommendation (2) Non-ST elevation myocardial infarction (NSTEMI): Code(s): I21.4 - Non-ST elevation (NSTEMI) myocardial infarction Status: Acute Assessment and Plan: Echo shows a left ventricular ejection fraction 45-50% Continue aspirin 81 mg p.o. q.d. Continue rosuvastatin 40 mg p.o. q.d. Reviewed EKG and chest x-ray Denies any illicit drug use Cardiology evaluated the patient and following recommendation Cardiology recommend to rule out PE, considering his renal function will hold CTA unless pulmonology recommend (3) Combined systolic and diastolic cardiac dysfunction: Code(s): I51.89 - Other ill-defined heart diseases Status: Acute Assessment and Plan: As above (4) Chronic obstructive pulmonary disease: Qualifiers: COPD type: emphysema Emphysema type: unspecified Qualified Code(s): J43.9 - Emphysema, unspecified Code(s): J44.9 - Chronic obstructive pulmonary disease, unspecified Status: Chronic Assessment and Plan: As above (5) Chronic kidney disease: Code(s): N18.9 - Chronic kidney disease, unspecified Status: Acute Assessment and Plan: Avoiding nephrotoxic drugs Monitor closely during dialysis Avoid NSAIDs Continue monitoring creatinine and BUN Baseline creatinine around 1.5 Follow-up nephrology as an outpatient (6) Hypertension: Qualifiers: Hypertension type: primary hypertension Qualified Code(s): I10 - Essential (primary) hypertension Code(s): I10 - Essential (primary) hypertension Status: Acute Assessment and Plan: As above (7) Type 2 diabetes mellitus: Qualifiers: Diabetes mellitus complication status: with other specified complication Diabetes mellitus correction insulin use: without predatory animal exterminator use Qualified Code(s): E11.69 - Type 2 diabetes mellitus with other specified complication Code(s): E11.9 - Type 2 diabetes mellitus without complications Status: Acute Assessment and Plan: HBA1c 5.9 (8) Hypothyroidism: Qualifiers: Hypothyroidism type: acquired Qualified Code(s): E03.9 - Hypothyroidism, unspecified Code(s): E03.9 - Hypothyroidism, unspecified Status: Acute Assessment and Plan: Continue levothyroxine 75 mcg (9) Mixed hyperlipidemia: Code(s): E78.2 - Mixed hyperlipidemia Status: Acute Assessment and Plan: Continue rosuvastatin 40 mg (10) Peripheral vascular disease: Code(s): I73.9 - Peripheral vascular disease, unspecified Status: Acute (11) Chronic anemia: Code(s): D64.9 - Anemia, unspecified Status: Acute Assessment and Plan: Order anemia panel Transfuse if hemoglobin less than 7 Transfuse if symptomatic (12) Obstructive sleep apnea: Code(s): G47.33 - Obstructive sleep apnea (adult) (pediatric) Status: Acute Assessment and Plan: Not using CPAP Subjective Date/time seen: 10/12/24 09:00 Interval history: Interval Hx:Chronic smoker for 50 years, 1 ppd and quit smoking 3 weeks ago. Patient was using CPAP previously. Patient never seen a set up mechanic coil winding machines or underwent PFTs before. Patient has a appointment December 2024 with the set up mechanic coil winding machines but unfortunately he had worsened shortness of breath and came to ED. Cardiology evaluated the patient for the chest pain and no acute intervention. Echocardiogram shows Left ventricular systolic function is mildly reduced, estimated at 45-50%. Believes elevation troponin due to pneumonia or CHF and consider PE, doubt ACS. I believe pulmonary embolism on least differential and his shortness of breath due to COPD exacerbation. Considering his creatinine function will defer CTA unless pulmonology recommends. 10/12:Will continue wean oxygen. Will consider CTA if pulmonology recommends. Changed his Lasix IV to p.o. Exam Narrative: General: Mildly ill-appearing male sitting at the side of the bed on BiPAP in no distress. Weight: 87.5 kg. BMI: 30.2. HEENT: PERRL, EOMI. Sclera anicteric. Mucous membranes appear tacky through the BiPAP mask. Neck: Supple. No significant JVD. Respiratory: On BiPAP, able to speak freely through the mask. Lung sounds are diminished throughout with scattered crackles. Cardiovascular: Regular rate and rhythm with occasional ectopy. Soft systolic murmur at the left sternal border. Gastrointestinal: Abdomen is soft, nontender, and nondistended with positive bowel sounds. Skin: Warm and dry. Generalized pallor. Extremities: No cyanosis or clubbing. Pitting edema of the lower legs. Radial pulses palpable. Pedal pulses diminished. Neurological: Alert and oriented. Cranial nerves 2-12 are grossly intact. No gross focal deficits to casual conversation. Psychiatric: Pleasant and cooperative with appropriate mood and affect. Objective Data Vital Signs Vital Signs: Vital Signs - 24 hr 10/11/24 09:04 10/11/24 09:05 10/11/24 10:52 Temperature 97.4 F L Pulse Rate 63 53 L Respiratory Rate 18 Blood Pressure 134/53 L Pulse Oximetry 94 Oxygen Delivery Room Air 10/11/24 12:00 10/11/24 13:34 10/11/24 13:34 Temperature Pulse Rate 50 L 59 L Respiratory Rate 20 Blood Pressure Pulse Oximetry 94 Oxygen Delivery Room Air 10/11/24 13:46 10/11/24 14:56 10/11/24 16:00 Temperature 97.7 F Pulse Rate 61 54 L 54 L Respiratory Rate 20 18 Blood Pressure 124/49 L Pulse Oximetry 95 Oxygen Delivery 10/11/24 18:39 10/11/24 19:58 10/11/24 20:00 Temperature 97.5 F L 98.3 F Pulse Rate 58 L 58 L 57 L Respiratory Rate 18 16 18 Blood Pressure 115/49 L 134/50 L Pulse Oximetry 93 95 Oxygen Delivery 10/11/24 20:00 10/11/24 20:00 10/11/24 20:02 Temperature Pulse Rate 54 L 58 L Respiratory Rate 16 Blood Pressure Pulse Oximetry 92 Oxygen Delivery Room Air Room Air 10/11/24 20:06 10/11/24 21:24 10/11/24 23:33 Temperature 98.4 F Pulse Rate 55 L 62 58 L Respiratory Rate 16 17 Blood Pressure 129/54 L Pulse Oximetry 90 Oxygen Delivery 10/12/24 00:00 10/12/24 03:41 10/12/24 04:00 Temperature 98.5 F Pulse Rate 53 L 56 L 54 L Respiratory Rate 17 Blood Pressure 130/60 Pulse Oximetry 95 Oxygen Delivery Intake/Output Intake/Output: Intake & Output 10/09/24 10/10/24 10/11/24 10/12/24 23:59 23:59 23:59 23:59 Intake Total 726 169 0357 250 Output Total 1450 1100 Balance -810 -150 1510 250 Meds/Results Medications: Active Medications Generic Name Dose Route Start Last Admin Trade Name Freq PRN Reason Stop Dose Admin Acetaminophen 650 mg 10/09/24 12:13 Acetaminophen 325 Mg Tablet PO Q4H PRN Mild Pain (1-3) or Fever Albuterol/Ipratropium 3 ml 10/10/24 14:00 10/12/24 08:52 Ipratropium 0.5 Mg/Albuterol Sulfate 2.5 Mg Ampul.Neb 3 Ml INHALATION 3 ml Q6HRT SANGEETA Administration Amlodipine Besylate 10 mg 10/10/24 09:00 10/11/24 09:05 Amlodipine Besylate 10 Mg Tablet PO 10 mg DAILY SANGEETA Administration Aspirin 81 mg 10/10/24 09:00 10/11/24 09:04 Aspirin 81 Mg Enteric Tablet PO 81 mg DAILY SANGEETA Administration Carvedilol 12.5 mg 10/10/24 09:00 10/11/24 21:24 Carvedilol 12.5 Mg Tablet PO 12.5 mg Q12HR SANGEETA Administration Dextrose 12.5 gm 10/09/24 16:07 Dextrose 50% 25 Gm/50 Ml Syringe IV PUSH PRN PRN Hypoglycemia Protocol Doxycycline Hyclate 100 mg 10/09/24 21:00 10/11/24 21:24 Doxycycline Hyclate 100 Mg Tablet PO 100 mg Q12HR SANGEETA Administration Fluticasone/Umeclidinium/Vilanterol 1 puff 10/10/24 08:00 10/12/24 08:55 Fluticasone/Umeclidin/Vilanter 100-62.5-25 Mcg Ellipta INHALATION 1 puff DAILYRT SANGEETA Administration Furosemide 40 mg 10/09/24 21:00 10/11/24 21:24 Furosemide Inj 40 Mg/4 Ml Vial IV PUSH 40 mg Q12HR SANGEETA Administration Glucagon 1 mg 10/09/24 16:07 Glucagon For Inj 1 Mg Vial IM PRN PRN Hypoglycemia Protocol Glucose 15 gm 10/09/24 16:07 Glucose Oral Gel 15 Gm Of Glucse In 37.5 Gm Tube PO PRN PRN Hypoglycemia Protocol Dextrose 1,000 mls @ 100 mls/hr 10/09/24 16:07 Dextrose 5% 1,000 Ml IVPB PRN PRN Hypoglycemia Protocol Insulin Aspart 2 - 5 units 10/09/24 17:00 10/11/24 17:29 Insulin Aspart (*Bkc) 100 Units/Ml SUB-Q Not Given TIDWM SANGEETA Protocol Insulin Aspart 1 - 2 units 10/09/24 21:00 10/11/24 21:20 Insulin Aspart (*Bkc) 100 Units/Ml SUB-Q Not Given HS SANGEETA Protocol Levofloxacin 750 mg 10/11/24 12:00 10/11/24 12:41 Levofloxacin 750 Mg Tablet PO 10/15/24 12:01 750 mg Q48H SANGEETA Administration Levothyroxine Sodium 75 mcg 10/10/24 06:30 10/12/24 06:25 Levothyroxine Sodium 75 Mcg Tablet PO 75 mcg DAILY@0630 SANGEETA Administration Perflutren Lipid Microsphere 0 ml 10/09/24 16:14 Perflutren Lipid Microspheres 1.5 Ml Vial Diluted To 10 Ml Total Volume IV PUSH 10/12/24 16:14 ONCE PRN adequate visualization Protocol Rosuvastatin Calcium 40 mg 10/10/24 09:00 10/11/24 09:04 Rosuvastatin 20 Mg Tablet PO 40 mg DAILY SANGEETA Administration Sertraline HCl 50 mg 10/10/24 09:00 10/11/24 09:04 Sertraline Hcl 50 Mg Tablet PO 50 mg DAILY SANGEETA Administration Zolpidem Tartrate 5 mg 10/09/24 23:55 10/11/24 21:24 Zolpidem Tartrate (*Crx) 5 Mg Tablet PO 5 mg QHS SANGEETA Administration Radiology Results: ITS Impressions Chest X-Ray 10/09/24 10:43 IMPRESSION: Bibasilar atelectasis versus pneumonia with pleural effusion more on the right side. Cardiomegaly with cardiac decompensation and pulmonary edema. Venous Doppler Study 10/10/24 08:53 IMPRESSION: 1. No deep venous thrombosis. Labs Labs: Laboratory Results - last 24 hr 10/11/24 10/11/24 10/11/24 08:01 10:21 11:46 WBC RBC Hgb Hct MCV MCH MCHC RDW Plt Count MPV Absolute Retic 0.05 Percent Retic 1.40 Immature Retic Fraction 13.0 Retic Hgb Content 27.4 L Haptoglobin 198 Sodium Potassium Chloride Carbon Dioxide Anion Gap BUN Creatinine Estim Creat Clear Calc Estimated GFR Glucose POC Capillary Glucose 107 H Calcium Iron 33 L TIBC 401 % Saturation 8 L Transferrin 276 Ferritin 32.50 Total Bilirubin Direct Bilirubin 0.0 AST ALT Alkaline Phosphatase Lactate Dehydrogenase 191 Total Protein Albumin Vitamin B12 397.0 Folate 5.1 CARLOS, Poly Interpret Negative CARLOS, Complement Interp Not Performed Indirect Antiglob Test Negative 10/11/24 10/11/24 10/12/24 16:42 20:58 04:44 WBC 8.7 RBC 3.37 L Hgb 8.4 L Hct 27.7 L MCV 82.2 MCH 24.9 L MCHC 30.3 L RDW 18.8 H Plt Count 259 MPV 9.2 Absolute Retic Percent Retic Immature Retic Fraction Retic Hgb Content Haptoglobin Sodium 141 Potassium 3.5 Chloride 106 Carbon Dioxide 31 H Anion Gap 4 BUN 37 H Creatinine 1.68 H Estim Creat Clear Calc 34 Estimated GFR 40 L Glucose 97 POC Capillary Glucose 85 89 Calcium 8.1 L Iron TIBC % Saturation Transferrin Ferritin Total Bilirubin 0.3 Direct Bilirubin AST 20 ALT 36 Alkaline Phosphatase 161 H Lactate Dehydrogenase Total Protein 6.0 L Albumin 3.0 L Vitamin B12 Folate CARLOS, Poly Interpret CARLOS, Complement Interp Indirect Antiglob Test 10/12/24 08:08 WBC RBC Hgb Hct MCV MCH MCHC RDW Plt Count MPV Absolute Retic Percent Retic Immature Retic Fraction Retic Hgb Content Haptoglobin Sodium Potassium Chloride Carbon Dioxide Anion Gap BUN Creatinine Estim Creat Clear Calc Estimated GFR Glucose POC Capillary Glucose 103 Calcium Iron TIBC % Saturation Transferrin Ferritin Total Bilirubin Direct Bilirubin AST ALT Alkaline Phosphatase Lactate Dehydrogenase Total Protein Albumin Vitamin B12 Folate CARLOS, Poly Interpret CARLOS, Complement Interp Indirect Antiglob Test Hospitalist MIPS Advance Care Plan I have confirmed that the patient's Advanced Care Plan is present, code status is documented, or surrogate decision maker is listed in patient medical record.: Yes Medication Reconciliation I have utilized all available resources to obtain, update and review the patients current medications (includes all prescriptions, OTC, herbals, cannabis, and nutritional supplements).: Yes
[2024-10-12] MEDS: FUROSEMIDE 40 MG TABLET PO (09:38)
[2024-10-12] MEDS: carvediloL 12.5 MG TABLET PO (09:39)
[2024-10-12] MEDS: ASPIRIN 81 MG ENTERIC TABLET PO (09:39)
[2024-10-12] MEDS: DOXYCYCLINE HYCLATE 100 MG TABLET PO (09:39)
[2024-10-12] MEDS: ROSUVASTATIN 20 MG TABLET 40 MG PO (09:39)
[2024-10-12] MEDS: amLODIPine BESYLATE 10 MG TABLET PO (09:39)
[2024-10-12] MEDS: SERTRALINE HCL 50 MG TABLET PO (09:40)
[2024-10-12 10:35] LABS: IFOB Positive Control Positive; Immunochemical Fecal Occult Bl Negative (N)
--- NOTE | 2024-10-12 11:30 | PM.PNCARD ---
Progress Note: A&P Assessment and Plan (1) Combined systolic and diastolic cardiac dysfunction: Code(s): I51.89 - Other ill-defined heart diseases Status: Acute Assessment and Plan: Improving only mild systolic dysfunction. Probably more acute on chronic diastolic heart failure. NTproBNP 8,820. 10/10/24 Echo: EF 45-50%, mod LVE, diastolic dysfunction (E/e' 15), severe LAE, mild KAVITHA, mild MR. On Lasix 40 mg IV BID. Change Lasix 40 mg PO BID. Restrict fluid intake to 1.5 l/day. May d/c home from cardiology standpoint and f/u with me in 1-2 weeks. (2) Elevated troponin: Code(s): R79.89 - Other specified abnormal findings of blood chemistry Status: Acute Assessment and Plan: Peaked at 0.799 and trending down 0.6217. Probably due to pneumonia and/or CHF. (3) Tobacco abuse: Code(s): Z72.0 - Tobacco use Status: Acute Assessment and Plan: Counseled regarding smoking cessation. (4) Mixed hyperlipidemia: Code(s): E78.2 - Mixed hyperlipidemia Status: Acute Assessment and Plan: On Rosuvastatin. (5) Essential (primary) hypertension: Code(s): I10 - Essential (primary) hypertension Status: Acute Assessment and Plan: Stable. (6) Peripheral vascular disease: Code(s): I73.9 - Peripheral vascular disease, unspecified Status: Acute Assessment and Plan: Stable. (7) Pneumonia: Code(s): J18.9 - Pneumonia, unspecified organism Status: Acute Assessment and Plan: On antibiotics. (8) Chronic obstructive pulmonary disease: Qualifiers: COPD type: emphysema Emphysema type: unspecified Qualified Code(s): J43.9 - Emphysema, unspecified Code(s): J44.9 - Chronic obstructive pulmonary disease, unspecified Status: Chronic Assessment and Plan: On Nebs and BiPAP. Subjective Date/time seen: 10/12/24 11:30 Interval history: Denies chest pain or sob. Exam Const: General: cooperative, healthy appearing and comfortable Orientation/consciousness: oriented to person, oriented to place and oriented to time Resp: Auscultation: clear to auscultation bilaterally, no crackles, no rales, no rhonchi, no wheezes and diminished lung sounds Other: Coarse breath sounds Cardio: Rate: regular rate Rhythm: regular rhythm Heart sounds: no murmurs Peripheral pulses: dorsalis pedis present Neuro: General: oriented to person, oriented to place and oriented to time Extrem: Right lower extremity: edema Left lower extremity: edema Other: Mild ankle edema bilaterally Objective Data Vital Signs Vital Signs: Vital Signs - 24 hr 10/11/24 12:00 10/11/24 13:34 10/11/24 13:34 Temperature Pulse Rate 50 L 59 L Respiratory Rate 20 Blood Pressure Pulse Oximetry 94 Oxygen Delivery Room Air 10/11/24 13:46 10/11/24 14:56 10/11/24 16:00 Temperature 97.7 F Pulse Rate 61 54 L 54 L Respiratory Rate 20 18 Blood Pressure 124/49 L Pulse Oximetry 95 Oxygen Delivery 10/11/24 18:39 10/11/24 19:58 10/11/24 20:00 Temperature 97.5 F L 98.3 F Pulse Rate 58 L 58 L 57 L Respiratory Rate 18 16 18 Blood Pressure 115/49 L 134/50 L Pulse Oximetry 93 95 Oxygen Delivery 10/11/24 20:00 10/11/24 20:00 10/11/24 20:02 Temperature Pulse Rate 54 L 58 L Respiratory Rate 16 Blood Pressure Pulse Oximetry 92 Oxygen Delivery Room Air Room Air 10/11/24 20:06 10/11/24 21:24 10/11/24 23:33 Temperature 98.4 F Pulse Rate 55 L 62 58 L Respiratory Rate 16 17 Blood Pressure 129/54 L Pulse Oximetry 90 Oxygen Delivery 10/12/24 00:00 10/12/24 03:41 10/12/24 04:00 Temperature 98.5 F Pulse Rate 53 L 56 L 54 L Respiratory Rate 17 Blood Pressure 130/60 Pulse Oximetry 95 Oxygen Delivery 10/12/24 08:56 10/12/24 08:56 10/12/24 09:04 Temperature Pulse Rate 60 60 57 L Respiratory Rate 20 20 20 Blood Pressure Pulse Oximetry 91 Oxygen Delivery Room Air 10/12/24 09:39 10/12/24 10:55 Temperature 98.3 F Pulse Rate 57 L 57 L Respiratory Rate 18 Blood Pressure 135/45 L Pulse Oximetry 93 Oxygen Delivery Intake/Output Intake/Output: Intake & Output 10/09/24 10/10/24 10/11/2425 23:59 23:59 23:59 23:59 Intake Total 379 665 2321 490 Output Total 1450 1100 Balance -810 -150 1510 490 Meds/Results Medications: Active Medications Generic Name Dose Route Start Last Admin Trade Name Semajq PRN Reason Stop Dose Admin Acetaminophen 650 mg 10/09/24 12:13 Acetaminophen 325 Mg Tablet PO Q4H PRN Mild Pain (1-3) or Fever Albuterol/Ipratropium 3 ml 10/10/24 14:00 10/12/24 08:52 Ipratropium 0.5 Mg/Albuterol Sulfate 2.5 Mg Ampul.Neb 3 Ml INHALATION 3 ml Q6HRT SANGEETA Administration Amlodipine Besylate 10 mg 10/10/24 09:00 10/12/24 09:39 Amlodipine Besylate 10 Mg Tablet PO 10 mg DAILY SANGEETA Administration Aspirin 81 mg 10/10/24 09:00 10/12/24 09:39 Aspirin 81 Mg Enteric Tablet PO 81 mg DAILY SANGEETA Administration Carvedilol 12.5 mg 10/10/24 09:00 10/12/24 09:39 Carvedilol 12.5 Mg Tablet PO 12.5 mg Q12HR SNAGEETA Administration Dextrose 12.5 gm 10/09/24 16:07 Dextrose 50% 25 Gm/50 Ml Syringe IV PUSH PRN PRN Hypoglycemia Protocol Doxycycline Hyclate 100 mg 10/09/24 21:00 10/12/24 09:39 Doxycycline Hyclate 100 Mg Tablet PO 100 mg Q12HR SANGEETA Administration Fluticasone/Umeclidinium/Vilanterol 1 puff 10/10/24 08:00 10/12/24 08:55 Fluticasone/Umeclidin/Vilanter 100-62.5-25 Mcg Ellipta INHALATION 1 puff DAILYRT SANGEETA Administration Furosemide 40 mg 10/12/24 09:00 10/12/24 09:38 Furosemide 40 Mg Tablet PO 40 mg BID SANGEETA Administration Glucagon 1 mg 10/09/24 16:07 Glucagon For Inj 1 Mg Vial IM PRN PRN Hypoglycemia Protocol Glucose 15 gm 10/09/24 16:07 Glucose Oral Gel 15 Gm Of Glucse In 37.5 Gm Tube PO PRN PRN Hypoglycemia Protocol Dextrose 1,000 mls @ 100 mls/hr 10/09/24 16:07 Dextrose 5% 1,000 Ml IVPB PRN PRN Hypoglycemia Protocol Insulin Aspart 2 - 5 units 10/09/24 17:00 10/11/24 17:29 Insulin Aspart (*Bkc) 100 Units/Ml SUB-Q Not Given TIDWM SANGEETA Protocol Insulin Aspart 1 - 2 units 10/09/24 21:00 10/11/24 21:20 Insulin Aspart (*Bkc) 100 Units/Ml SUB-Q Not Given HS SANGEETA Protocol Levofloxacin 750 mg 10/11/24 12:00 10/11/24 12:41 Levofloxacin 750 Mg Tablet PO 10/15/24 12:01 750 mg Q48H SANGEETA Administration Levothyroxine Sodium 75 mcg 10/10/24 06:30 10/12/24 06:25 Levothyroxine Sodium 75 Mcg Tablet PO 75 mcg DAILY@0630 SANGEETA Administration Perflutren Lipid Microsphere 0 ml 10/09/24 16:14 Perflutren Lipid Microspheres 1.5 Ml Vial Diluted To 10 Ml Total Volume IV PUSH 10/12/24 16:14 ONCE PRN adequate visualization Protocol Rosuvastatin Calcium 40 mg 10/10/24 09:00 10/12/24 09:39 Rosuvastatin 20 Mg Tablet PO 40 mg DAILY SANGEETA Administration Sertraline HCl 50 mg 10/10/24 09:00 10/12/24 09:40 Sertraline Hcl 50 Mg Tablet PO 50 mg DAILY SANGEETA Administration Zolpidem Tartrate 5 mg 10/09/24 23:55 10/11/24 21:24 Zolpidem Tartrate (*Crx) 5 Mg Tablet PO 5 mg QHS SANGEETA Administration Radiology Results: ITS Impressions Chest X-Ray 10/09/24 10:43 IMPRESSION: Bibasilar atelectasis versus pneumonia with pleural effusion more on the right side. Cardiomegaly with cardiac decompensation and pulmonary edema. Venous Doppler Study 10/10/24 08:53 IMPRESSION: 1. No deep venous thrombosis. Labs Labs: Laboratory Results - last 24 hr 10/11/24 10/11/24 10/11/24 08:01 11:46 16:42 WBC RBC Hgb Hct MCV MCH MCHC RDW Plt Count MPV Haptoglobin 198 Sodium Potassium Chloride Carbon Dioxide Anion Gap BUN Creatinine Estim Creat Clear Calc Estimated GFR Glucose POC Capillary Glucose 107 H 85 Calcium % Saturation 8 L Total Bilirubin AST ALT Alkaline Phosphatase Total Protein Albumin Stl Occult Blood (IFOB) 10/11/24 10/12/24 10/12/24 20:58 04:44 08:08 WBC 8.7 RBC 3.37 L Hgb 8.4 L Hct 27.7 L MCV 82.2 MCH 24.9 L MCHC 30.3 L RDW 18.8 H Plt Count 259 MPV 9.2 Haptoglobin Sodium 141 Potassium 3.5 Chloride 106 Carbon Dioxide 31 H Anion Gap 4 BUN 37 H Creatinine 1.68 H Estim Creat Clear Calc 34 Estimated GFR 40 L Glucose 97 POC Capillary Glucose 89 103 Calcium 8.1 L % Saturation Total Bilirubin 0.3 AST 20 ALT 36 Alkaline Phosphatase 161 H Total Protein 6.0 L Albumin 3.0 L Stl Occult Blood (IFOB) 10/12/24 10:14 WBC RBC Hgb Hct MCV MCH MCHC RDW Plt Count MPV Haptoglobin Sodium Potassium Chloride Carbon Dioxide Anion Gap BUN Creatinine Estim Creat Clear Calc Estimated GFR Glucose POC Capillary Glucose Calcium % Saturation Total Bilirubin AST ALT Alkaline Phosphatase Total Protein Albumin Stl Occult Blood (IFOB) Negative
[2024-10-12 12:00] LABS: Glucose Point of Care 166 mg/dl (65-105)
--- NOTE | 2024-10-12 13:32 | P.DS_ITS ---
DS: Admitting Diagnosis Discharge Date 10/12/2024 Admitting Diagnosis Shortness of breath. DS: Discharge Diagnosis Discharge Diagnosis (1) Acute respiratory failure with hypoxia and hypercapnia: Code(s): J96.01 - Acute respiratory failure with hypoxia; J96.02 - Acute respiratory failure with hypercapnia Status: Acute Assessment and Plan: RSV COVID influenza negative Chronic smoker 1 ppd for 50 years Never had a pulmonology workup as OP Denies any cardiac history Echo ordered Frequent COPD exacerbation Denies using home oxygen Continue levofloxacin 750 mg p.o. q.48h until 10/15 Continue doxycycline 100 mg p.o. b.i.d. Continue ipratropium and albuterol Continue Trelejosé miguel Ellipta Consult pulmonology and appreciate recommendation (2) Non-ST elevation myocardial infarction (NSTEMI): Code(s): I21.4 - Non-ST elevation (NSTEMI) myocardial infarction Status: Acute Assessment and Plan: Echo shows a left ventricular ejection fraction 45-50% Continue aspirin 81 mg p.o. q.d. Continue rosuvastatin 40 mg p.o. q.d. Reviewed EKG and chest x-ray Denies any illicit drug use Cardiology evaluated the patient and following recommendation Cardiology recommend to rule out PE, considering his renal function will hold CTA unless pulmonology recommend (3) Combined systolic and diastolic cardiac dysfunction: Code(s): I51.89 - Other ill-defined heart diseases Status: Acute Assessment and Plan: As above (4) Chronic obstructive pulmonary disease: Qualifiers: COPD type: emphysema Emphysema type: unspecified Qualified Code(s): J43.9 - Emphysema, unspecified Code(s): J44.9 - Chronic obstructive pulmonary disease, unspecified Status: Chronic Assessment and Plan: As above (5) Chronic kidney disease: Code(s): N18.9 - Chronic kidney disease, unspecified Status: Acute Assessment and Plan: Avoiding nephrotoxic drugs Monitor closely during dialysis Avoid NSAIDs Continue monitoring creatinine and BUN Baseline creatinine around 1.5 Follow-up nephrology as an outpatient (6) Hypertension: Qualifiers: Hypertension type: primary hypertension Qualified Code(s): I10 - Essential (primary) hypertension Code(s): I10 - Essential (primary) hypertension Status: Acute Assessment and Plan: As above (7) Type 2 diabetes mellitus: Qualifiers: Diabetes mellitus complication status: with other specified complication Diabetes mellitus 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 insulin 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 Qualified Code(s): E11.69 - Type 2 diabetes mellitus with other specified complication Code(s): E11.9 - Type 2 diabetes mellitus without complications Status: Acute Assessment and Plan: HBA1c 5.9 (8) Hypothyroidism: Qualifiers: Hypothyroidism type: acquired Qualified Code(s): E03.9 - Hypothyroidism , unspecified Code(s): E03.9 - Hypothyroidism, unspecified Status: Acute Assessment and Plan: Continue levothyroxine 75 mcg (9) Mixed hyperlipidemia: Code(s): E78.2 - Mixed hyperlipidemia Status: Acute Assessment and Plan: Continue rosuvastatin 40 mg (10) Peripheral vascular disease: Code(s): I73.9 - Peripheral vascular disease, unspecified Status: Acute (11) Chronic anemia: Code(s): D64.9 - Anemia, unspecified Status: Acute Assessment and Plan: Order anemia panel Transfuse if hemoglobin less than 7 Transfuse if symptomatic (12) Obstructive sleep apnea: Code(s): G47.33 - Obstructive sleep apnea (adult) (pediatric) Status: Acute Assessment and Plan: Not using CPAP DS: Summary Hospital Course Hospital Course: 74-year-old male with history of tobacco dependence, chronic obstructive pulmonary disease, combined systolic and diastolic congestive heart failure, hypertension, hyperlipidemia, type 2 diabetes mellitus, peripheral vascular disease, obstructive sleep apnea, and hypothyroidism who presented to the [facility] via EMS for evaluation of shortness of breath. He gives about a 1 week history of progressive dyspnea on lesser and lesser exertion in addition to mild orthopnea and swelling in the legs and feet. Nebulizers have not helped much. About 2 hours prior to arrival his shortness of breath got suddenly worse and quickly progressed to a point where he was only able to speak in 1 to 2 word sentences. He denies fever, cough, sore throat, chest pain, pleuritic pain, palpitations, nausea, vomiting, sweats, and calf pain. SpO2 on EMS arrival was in the 70s and he was immediately placed on CPAP and was given dexamethasone and magnesium sulfate. At the time my evaluation he is resting comfortably and is seated at the side of the bed on BiPAP which he states has helped tremendously. In the ED: He was afebrile on arrival with a blood pressure of 129/93, pulse 68, respiratory rate 28, an SpO2 of 100% on CPAP. Labs were significant for WBC count of 16.3, hemoglobin 9.9, hematocrit 33.7%, BUN 34, creatinine 1.66, glucose 183, lactic acid 0.7, AST 65, ALT 83, alkaline phosphatase 269, proBNP 8820, troponin 0.779. ABG showed a pH of 7.232, pCO2 47.8, PO2 104.5, HC03 19.7. He was placed on BiPAP with improvement in a repeat ABG. EKG showed sinus rhythm with ST T-wave abnormalities in the lateral leads. Chest x-ray showed bibasilar atelectasis versus pneumonia with pleural effusion and cardiomegaly with pulmonary edema. He was given a nebulizer treatment, furosemide 40 mg, and levofloxacin 750 mg and he is being admitted in this setting for further treatment and evaluation. During the hospitalization patient was treated for the following conditions: PNA RSV COVID influenza negative Chronic smoker 1 ppd for 50 years Never had a pulmonology workup as OP Denies any cardiac history Echo ordered and shows left ventricular ejection fraction 45-50% Frequent COPD exacerbation Denies using home oxygen Continue levofloxacin 750 mg p.o. q.48h until 10/15 Continue doxycycline 100 mg p.o. b.i.d. until 10/15 Continue ipratropium and albuterol Continue Marlolejosé miguel [place] OP f/u pulmonology for CJ and COPD NSTEMI Echo shows a left ventricular ejection fraction 45-50% Continue aspirin 81 mg p.o. q.d. Continue rosuvastatin 40 mg p.o. q.d. Reviewed EKG and chest x-ray Denies any illicit drug use Cardiology evaluated the patient and no acute intervention Cardiology recommend to rule out PE, considering his renal function will hold CTA unless pulmonology recommend Continue Lasix 40 mg PO BID Status at Discharge Cognitive/behavioral status at discharge: Stable Time Spent with Patient Time attestation: Total time spent providing and/or coordinating discharge services: 45minutes Exam Narrative: General: Mildly ill-appearing male sitting at the side of the bed on BiPAP in no distress. Weight: 87.5 kg. BMI: 30.2. HEENT: PERRL, EOMI. Sclera anicteric. Mucous membranes appear tacky through the BiPAP mask. Neck: Supple. No significant JVD. Respiratory: On BiPAP, able to speak freely through the mask. Lung sounds are diminished throughout with scattered crackles. Cardiovascular: Regular rate and rhythm with occasional ectopy. Soft systolic murmur at the left sternal border. Gastrointestinal: Abdomen is soft, nontender, and nondistended with positive bowel sounds. Skin: Warm and dry. Generalized pallor. Extremities: No cyanosis or clubbing. Pitting edema of the lower legs. Radial pulses palpable. Pedal pulses diminished. Neurological: Alert and oriented. Cranial nerves 2-12 are grossly intact. No gross focal deficits to casual conversation. Psychiatric: Pleasant and cooperative with appropriate mood and affect. DS: Data Data Completed and Pending Labs on day of discharge: Labs from last 24 hours 10/12/24 10/12/24 10/12/24 11:55 10:14 08:08 WBC RBC Hgb Hct MCV MCH MCHC RDW Plt Count MPV Haptoglobin Sodium Potassium Chloride Carbon Dioxide Anion Gap BUN Creatinine Estim Creat Clear Calc Estimated GFR Glucose POC Capillary Glucose 166 H 103 Calcium Total Bilirubin AST ALT Alkaline Phosphatase Total Protein Albumin Stl Occult Blood (IFOB) Negative 10/12/24 10/11/24 10/11/24 04:44 20:58 16:42 WBC 8.7 RBC 3.37 L Hgb 8.4 L Hct 27.7 L MCV 82.2 MCH 24.9 L MCHC 30.3 L RDW 18.8 H Plt Count 259 MPV 9.2 Haptoglobin Sodium 141 Potassium 3.5 Chloride 106 Carbon Dioxide 31 H Anion Gap 4 BUN 37 H Creatinine 1.68 H Estim Creat Clear Calc 34 Estimated GFR 40 L Glucose 97 POC Capillary Glucose 89 85 Calcium 8.1 L Total Bilirubin 0.3 AST 20 ALT 36 Alkaline Phosphatase 161 H Total Protein 6.0 L Albumin 3.0 L Stl Occult Blood (IFOB) 10/11/24 08:01 WBC RBC Hgb Hct MCV MCH MCHC RDW Plt Count MPV Haptoglobin 198 Sodium Potassium Chloride Carbon Dioxide Anion Gap BUN Creatinine Estim Creat Clear Calc Estimated GFR Glucose POC Capillary Glucose Calcium Total Bilirubin AST ALT Alkaline Phosphatase Total Protein Albumin Stl Occult Blood (IFOB) Preliminary micro results at discharge 10/09/24 10:37 Blood Culture - Preliminary Blood 10/09/24 11:46 Blood Culture - Preliminary Blood Imaging Radiologist's impression: ITS Impressions Chest X-Ray 10/09/24 10:43 IMPRESSION: Bibasilar atelectasis versus pneumonia with pleural effusion more on the right side. Cardiomegaly with cardiac decompensation and pulmonary edema. Venous Doppler Study 10/10/24 08:53 IMPRESSION: 1. No deep venous thrombosis. Discharge Plan Discharge Attending physician on discharge: Bro Hughes Consulting providers: Hunter Shah; Mildred Kelly Discharging Clinician: Bro Hughes Anticipated Discharge Date/Time: 10/12/24 13:39 Patient Disposition: Home Activity: as tolerated Diet: heart healthy Discharge Instructions: Complete your antibiotics until 10/15. Started Lasix in hospital. Please follow up BMP and adjust dose with Cardiology. Please follow up with for sleep study and COPD Check blood pressure 1 to 2 times a day. Record and bring into your doctor for review. Call your doctor if your blood pressure is greater than 180/110 or less than 90/45. Walk with cane or other assist device. Take precautions to avoid falls. Rise slowly from a lying or sitting position. Pause before standing or walking. Contact your doctor or call 911 and come to the Emergency Room if you have any type of trauma, lightheadedness with standing or other worrisome symptoms. Avoid NSAIDs (ibuprofen, naproxen, Aleve). Tylenol is safe to take. Follow-up with your primary care provider in 1-2 weeks. Please call for appointment. Follow-up with Cardiology in 2-4 weeks. Please call for an appointment. Thank you for using [facility] for your health care needs. Patient Instructions: Antibiotic Form Patient Language: Estonian Stand Alone Forms: General Discharge Information Follow-up/Referrals: Mildred Kelly MD [Physician] - (Sleep study and COPD) Hunter Shah DO [Physician] - (Started Lasix in hospital. Please follow up BMP and adjust dose with Cardiology.) Dannie Burroughs MD [Primary Care Provider] - Discharge Medications: New furosemide 40 mg Tablet 40 mg PO BID 30 Days Qty: 60 0RF levofloxacin 750 mg tablet 750 mg PO DAILY Qty: 2 0RF Rx Instructions: please take one tablet on 10/13 and other one on 10/15 Continued aspirin [Adult Low Dose Aspirin] 81 mg Tablet,Delayed Release (Dr/Ec) 81 mg PO DAILY Fermin Aerosphere 160-9-4.8 mcg/actuation HFA aerosol inhaler 2 inh inhalation BID Qty: 10.7 2RF levothyroxine 75 mcg tablet 75 mcg PO DAILY Qty: 90 1RF albuterol sulfate 90 mcg/actuation HFA aerosol inhaler 1 inh INHALATION QID PRN (Reason: SOB/Wheezing) Qty: 8.5 4RF albuterol sulfate 2.5 mg /3 mL (0.083 %) solution for nebulization 2.5 mg inhalation Q4-6H PRN (Reason: shortness of breath or wheezing) Qty: 75 2RF zolpidem 5 mg tablet 10 mg PO QHS Qty: 30 0RF amlodipine 10 mg tablet 10 mg PO DAILY (DME) OneTouch Ultra Test Strip See Rx Instructions .Route Qty: 100 1RF Rx Instructions: check glucose twice daily for diabetes (DME) blood-glucose meter [OneTouch Ultra2 Meter] Misc See Rx Instructions .Route Qty: 1 1RF Rx Instructions: check blood sugar twice daily for diabetes (DME) lancets Misc See Rx Instructions .Route Qty: 200 1RF Rx Instructions: check blood sugar twice daily for diabetes rosuvastatin 40 mg tablet 40 mg PO DAILY Qty: 90 1RF clopidogrel 75 mg tablet 75 mg PO DAILY Qty: 90 0RF sertraline 50 mg tablet 50 mg PO DAILY Qty: 90 0RF carvedilol 12.5 mg tablet 12.5 mg PO BID Qty: 60 5RF Held hydrochlorothiazide 25 mg tablet 25 mg PO DAILY Qty: 90 1RF Hold Instructions: Resume on 11/09/24. Please discuss with your PCP if you want to continue. Synjardy 12.5-1,000 mg tablet 1 tablet PO BID Qty: 180 1RF Hold Instructions: Resume on 11/02/24. Please discuss with your PCP if you want to continue. Date of admission: 10/09/24 12:13 Primary Care Provider: Dannie Burroughs Admitting Provider: Sarabjit Laguna Attending physician on admission: Sarabjit Laguna Condition: Improved
--- NOTE | 2024-10-12 15:59 | PCRCNOTE ---
Home O2 evaluation done. Pt does not require home oxygen at this time.
[2024-10-12 17:38] LABS: Pneumococcal Antigen Urine DETECTED
[2024-10-13 17:57] LABS: Mycoplasma IgM Antibody Titer 199 U/mL
[2024-10-14 01:08] LABS: Legionella pneumophila Ag Ur NOT DETECTED
[2024-10-15 12:29] LABS: Soluble Transferrin Receptor 1.77 mg/L (0.76-1.76)
== END 2024-10-12 16:20 | disposition home or self-care (01) | DRG 280 ==
LOC: ANHED 12:12 → ANHIMU 13:21 → ANH2MED 10-12 13:40 → ANHIMU 10-14 16:04
PROVIDERS: Physician Assistant; Admitting Provider Hospitalist; Emergency Provider Emergency Medicine; PCP Family Medicine; Visit Provider General Practice
DX: I11.0 Hypertensive heart disease with heart failure (principal); I50.43 Acute on chronic combined systolic (congestive) and diastolic (congestive) heart failure; I21.A1 Myocardial infarction type 2; J18.9 Pneumonia, unspecified organism; J96.01 Acute respiratory failure with hypoxia; J96.02 Acute respiratory failure with hypercapnia; J44.0 Chronic obstructive pulmonary disease with (acute) lower respiratory infection; J44.1 Chronic obstructive pulmonary disease with (acute) exacerbation; E11.22 Type 2 diabetes mellitus with diabetic chronic kidney disease; Z20.822 Contact with and (suspected) exposure to COVID-19; E03.9 Hypothyroidism, unspecified; E78.2 Mixed hyperlipidemia; I73.9 Peripheral vascular disease, unspecified; D64.9 Anemia, unspecified; G47.33 Obstructive sleep apnea (adult) (pediatric); M19.90 Unspecified osteoarthritis, unspecified site; I65.29 Occlusion and stenosis of unspecified carotid artery; F17.210 Nicotine dependence, cigarettes, uncomplicated; Z90.49 Acquired absence of other specified parts of digestive tract
CPT/HCPCS: 36415; 36600; 71045; 80053; 82248; 82274; 82607; 82728; 82746; 82803; 82805; 82948; 83010; 83036; 83540; 83550; 83605; 83615; 83735; 83880; 84238; 84439; 84443; 84466; 84484; 85018; 85025; 85027; 85046; 85610; 85730; 86738; 86880; 87040; 87449; 87637; 87641; 87899; 93005; 93306; 93970; 94002; 94003; 94618; 94640; 96365; 96375; 96376; 99285; A9270; J0696; J1650; J1815; J1938; J1956